=== PATIENT | female | born 1975 | race Caucasian/White ===

== ENCOUNTER 2016-06-28 10:24 | Day surgery (SDC) | payer OTHER ==
[~2016-06-28 10:24] MED LIST: DIPRIVAN 200 MG/20 ML IV ONE; Kenalog-40 IM ONE; Sensorcaine 0.25% 10 ML IJ ONE; Xylocaine 1% Vial 30 ML PF IJ ONE
[2016-06-28] MEDS ORDERED: Lactated Ringers 1,000 ML IV SCH (11:30)
[2016-06-28] MEDS ORDERED: Pepcid 20 MG VIAL IV ONE (12:29)
[2016-06-28 12:59] VITALS: BP 155/75; PULSE 87; O2SAT 95
--- NOTE | 2016-06-28 14:07 | XRAY ---
Indication: Left SI injection. Intraoperative fluoroscopy was provided for 15 seconds. 3 digital spot images submitted for interpretation demonstrates a posterior spinal needle with the tip projecting over the left SI joint. Small amount of contrast injected for needle tip placement. Correlate with intraoperative findings/report.
--- NOTE | 2016-06-28 16:52 | XRAY ---
15 seconds fluoroscopy time in surgery for left SI injection.
== END 2016-06-28 13:00 | disposition home or self-care (01) ==
LOC: SDC-PAIN 10:24
PROVIDERS: ATTEND Pain Medicine Interventional Pain Medicine
DX: M46.1 Sacroiliitis, not elsewhere classified (principal); M54.5 Low back pain; M70.62 Trochanteric bursitis, left hip
CPT/HCPCS: 27096; 72020; 77003; J2001; J2704; J3301; Q9967

== ENCOUNTER 2016-08-07 10:12 | Emergency (ER) | payer OTHER ==
--- NOTE | 2016-08-07 10:36 | ERPHSYRPT ---
- History of Present Illness Time Seen by Provider: 08/07/16 10:18 Source: patient Exam Limitations: no limitations Patient Subjective Stated Complaint: pt arrived ambulatory to er with co numnbess to face off and on for 4 days,numbness to right side, nauea, no headache, pt states that she had court date this am. Triage Nursing Assessment: pt alert and oriented, resp easy,skin w/d. no edema noted, moves all ext well, Physician History: patient developed numbness of right face; and inability to speak 4 days ago; didn't see anyone; lasted 4-6 hours and resolved; hx of stroke affecting right side 6 months ago; on plavix; she has been taking it; no recent travel or exposure or trauma; ; slight visual disturbance right eye and numbness nose on right and trouble swallowing Timing/Duration: today, hour(s) (1/2 ago today; similar episode 4 days ago lasted 4- 6 hours), gradual onset Severity: moderate Character of Deficits: altered sensation (right face), impaired swallowing, Right Facial Deficits: no difficulties Baseline/Normal Cognition: alert oriented x 3 Current Cognition: alert oriented x 3 Baseline Gait: walks w/o assistance Associated Symptoms: nausea, vision changes Allergies/Adverse Reactions: aspirin Allergy (Mild, Verified 08/07/16 10:20) codeine [Codeine] Allergy (Mild, Verified 08/07/16 10:20) fluoxetine HCl [From Prozac] Allergy (Mild, Verified 08/07/16 10:20) Penicillins Allergy (Mild, Verified 08/07/16 10:20) promethazine HCl [From Phenergan] Allergy (Mild, Verified 08/07/16 10:20) prednisone Adverse Reaction (Mild, Verified 08/07/16 10:20) mouth sores, rash chest and neck doxycycline hyclate [From Vibra-Tabs] Adverse Reaction (Verified 08/07/16 10:20) steroid from breathing treatment Allergy (Uncoded 08/07/16 10:20) Home Medications: Gabapentin [Neurontin] 1,600 mg PO QID 07/10/13 [History] Diltiazem HCl [Cartia Xt] 180 mg PO QPM 09/27/14 [History] Levothyroxine Sodium 100 Mcg [Synthroid 100 Mcg] 100 mcg PO QAM 09/27/14 [ History] Simvastatin [Zocor] 20 mg PO HS 09/27/14 [History] Clopidogrel Bisulfate 75 mg [PLAVIX 75 MG Tablet] 75 mg PO DAILY 04/05/15 [History] Cyclobenzaprine HCl 10 mg [Cyclobenzaprine 10 MG] 10 mg PO BID 07/16/15 [ History] Insulin Detemir [Levemir Flexpen] 7 unit SQ QAM 09/27/15 [History] Lamotrigine 100 mg [lamICTAL 100MG TABLET] 200 mg PO BID 09/27/15 [History ] Tramadol HCl 50 mg [Ultram 50 mg] 50 mg PO Q6HPRN PRN 09/27/15 [History] Diazepam 5 mg [Valium 5 MG] 5 mg PO TID 02/14/16 [History] Estrogens,Esterified [Menest] 1 tab PO UD 04/20/16 [History] Hydrocodone Bit/Acetaminophen [Hydrocodon-Acetaminophn 10-325] 1 tab PO Q4HPRN PRN 04/20/16 [History] Lidocaine HCl 5% Patch [Lidoderm Patch 5%] 1 applic TD DAILY 04/20/16 [ History] Naproxen 500 mg PO BID 04/20/16 [History] Omeprazole 20 MG [Prilosec 20 mg] 20 mg PO DAILY 04/20/16 [History] Trazodone HCl [Oleptro ER] 150 mg PO HS 04/20/16 [History] Triamcinolone Acetonide [Nasacort] 2 sprays IH UD 04/20/16 [History] Hx Tetanus, Diphtheria Vaccination/Date Given: Yes Hx Influenza Vaccination/Date Given: Yes Hx Pneumococcal Vaccination/Date Given: Yes Immunizations Up to Date: Yes - Review of Systems Constitutional: No Symptoms Eyes: Vision Changes, No Eye Pain, No Eye Redness, No Itchy, No Photophobia Ears, Nose, & Throat: Other (trouble swallowing), No Ear Pain, No Hearing Changes, No Tinnitus, No Nose Pain (but numbness on right) Cardiac: No Chest Pain, No Palpitations, No Syncope Abdominal/Gastrointestinal: Nausea, No Abdominal Pain, No Vomiting, No Diarrhea Genitourinary Symptoms: No Symptoms Musculoskeletal: No Symptoms Skin: No Symptoms Neurological: Parasthesia, Sensory Changes, No Dizziness, No Gait Changes, No Headache, No Seizure Psychological: No Symptoms Endocrine: No Symptoms Hematologic/Lymphatic: No Symptoms Immunological/Allergic: No Symptoms - Past Medical History Pertinent Past Medical History: Yes Neurological History: Epilepsy, Migraines, Seizures, Stroke ENT History: No Pertinent History Cardiac History: Angina, Arrhythmia, Deep Vein Thrombosis, High Cholesterol, Hypertension, Myocardial Infarction ([place]), Other Respiratory History: Asthma, Pulmonary Embolism Endocrine Medical History: Diabetes Type II, Hypothyroidism Musculoskeletal History: Fibromyalgia, Osteoporosis GI Medical History: GERD, Hernia History: No Pertinent History Psycho-Social History: Anxiety, Bipolar, Depression, Panic Disorder Female Reproductive Disorders: Endometriosis Other Medical History: MITRAL VALVE PROLAPSE WITH REGURTATION, BIPOLAR DISORDER , IBS, , MULTIPLE SCLEROSIS, FIBROMYALGIA. PE RIGHT LUNG - Past Surgical History Past Surgical History: Yes Neuro Surgical History: No Pertinent History Cardiac: Cardiac Catheterization Respiratory: No Pertinent History Gastrointestinal: Cholecystectomy, Hernia Repair Genitourinary: No Pertinent History Musculoskeletal: Joint Replacement, Orthopedic Surgery Female Surgical History: Hysterectomy Other Surgical History: torn miniscus and implant-RT KNEE" partial scope replacement" - Social History Smoking Status: Current every day smoker How long have you smoked: 25 Exposure to second hand smoke: Yes Alcohol Use: None Drug Use: none Patient Lives Alone: No Significant Family History: no pertinent family hx, heart disease - Female History Hx Now: No - Nursing Vital Signs Nursing Vital Signs: Initial Vital Signs Temperature 98.2 F Temperature Source Oral Pulse Rate 86 Respiratory Rate 18 Blood Pressure [] 129/92 Pain Intensity 9 - Denise Coma Scale Best Eye Response (Denise): (4) open spontaneously Best Verbal Response ([place]): (5) oriented Best Motor Response (Denise): (6) obeys commands Denise Total: 15 - Physical Exam General Appearance: severe distress, alert, anxiety Eye Exam: bilateral eye: normal inspection, PERRL, EOMI, other (fundi benign; no papiledema; vision grossly ok) Ears, Nose, Throat Exam: normal ENT inspection, TMs normal, pharynx normal, moist mucous membranes, other (tongue midline) Neck Exam: normal inspection, non-tender, supple, full range of motion, No meningismus, No carotid bruit, No JVD Respiratory: normal breath sounds, lungs clear, airway intact, No chest tenderness, No respiratory distress, No rhonchi, No wheezing, No stridor Cardiovascular: regular rate/rhythm, normal heart sounds, normal peripheral pulses, capillary refill <2 sec, No murmur Gastrointestinal: soft, normal bowel sounds, No tenderness, No distention, No mass, No guarding, No pulsatile mass, No organomegaly Pelvic Exam: deferred Rectal Exam: deferred Back Exam: normal inspection, normal range of motion, No CVA tenderness, No rash Extremity Exam: normal inspection, normal range of motion, pelvis stable, No adriana's sign, No pedal edema Peripheral Pulses: carotid (R): 4+, carotid (L): 4+, femoral (R): 4+, femoral (L ): 4+, dorsalis-pedis (R): 3+, dorsalis-pedis (L): 3+ Mental Status: alert, oriented x 3, cooperative, 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 Exam: normal hearing, normal speech, PERRL, facial paresthesias (right), tongue midline, No facial weakness Coordination/Gait: normal finger to nose, normal gait, normal cerebellar function, negative Romberg's sign Motor/Sensory: no sensory deficit (slight hypoaesthesia right face all three branches), no pronator drift, negative Babinski's sign, weak motor strength RLE (with respect o left but lieft against gravity and old wihtout change per patient), No no motor deficit (slight weakness right leg compared to left; patient states this is old and unchanged) DTR: knee (R): 4+, knee (L): 4+ Skin Exam: normal color, warm, dry, No rash, No petechiae SpO2 Interpretation: normal SpO2: 97 Oxygen Delivery: Room Air - Course Nursing assessment & vital signs reviewed: Yes EKG Interpreted by Me: RATE (72), Sinus Rhythm, NORMAL AXIS, NORMAL INTERVALS, NORMAL QRS, Non-specific ST Changes (flat T's ? hypokalemia), Other (change from --16) Rhythm Strip: Rate (96), Normal Sinus Rhythm - Radiology Exams Chest X-ray Interpretation: Reviewed by me, Teleradiologist Report, Negative - CT Exams Head CT Interpretation: Negative, Tele-radiologist Report, Other (no change from last year) Ordered Tests: Active Orders 24 hr Category Date Time Status Accucheck STAT Care 08/07/16 10:28 Active Rn Admit STAT Care 08/07/16 10:28 Active EKG-ER Only STAT Care 08/07/16 10:28 Active IV Insertion STAT Care 08/07/16 10:28 Active Pulse Oximetry (ED) STAT Care 08/07/16 10:28 Active Re-Check Vital Signs STAT Care 08/07/16 10:28 Active CHEST 1 VIEW (PORTABLE) Stat Exams 08/07/16 10:29 Completed HEAD WITHOUT CONTRAST [CT] Stat Exams 08/07/16 10:29 Completed CBC W DIFF Stat Lab 08/07/16 10:40 Completed CMP Stat Lab 08/07/16 10:40 Completed PROTIME WITH INR Stat Lab 08/07/16 10:40 Completed PTT Stat Lab 08/07/16 10:40 Completed Lab/Rad Data: Laboratory Result Diagrams 08/07/16 10:40 08/07/16 10:40 Laboratory Results 08/07/16 08/07/16 08/07/16 Range/Units 10:40 10:40 10:40 WBC 6.3 (4.0-10.5) K/mm3 RBC 4.59 (4.1-5.4) M/mm3 Hgb 13.1 (12.0-16.0) gm/dl Hct 40.6 (35-47) % MCV 88.5 (78-100) fl MCH 28.5 (26-32) pg MCHC 32.3 (32-36) g/dl RDW 13.7 (11.5-14.0) % Plt Count 178 (150-450) K/mm3 MPV 11.0 H (6-9.5) fl Gran % 56.3 (36.0-66.0) % Lymphocytes % 31.3 (24.0-44.0) % Monocytes % 8.1 (0.0-12.0) % Eosinophils % 4.0 (0.00-5.0) % Basophils % 0.3 (0.0-0.4) % Basophils # 0.02 (0-0.4) INR 0.94 (0.8-3.0) PTT 35.3 (25.3-37.0) SECONDS Sodium 147 H (136-145) mEq/L Potassium 3.2 L (3.5-5.1) mEq/L Chloride 107 (98-107) mEq/L Carbon Dioxide 29.4 (21-32) mEq/L Anion Gap 13.4 (5-15) MEQ/L BUN 15 (9-20) mg/dL Creatinine 0.87 (0.55-1.30) mg/dl Estimated GFR > 60 ML/MIN Glucose 107 (70-110) MG/DL Calcium 8.9 (8.5-10.1) mg/dL Total Bilirubin 0.1 L (0.2-1.0) mg/dL AST 14 L (15-37) U/L ALT 14 (12-78) U/L Alkaline Phosphatase 109 (46-116) U/L Serum Total Protein 7.2 (6.4-8.2) gm/dL Albumin 3.7 (3.4-5.0) g/dL reviewed - Progress Progress: unchanged (after CT), improved (clinically over time), re-examined Progress Note: 08/07/16 10:[address]; no change in exam; at bedside; CBC ok; monitor and pusle ox ok, BP ok 08/07/16 11:35 results to date shared; no change in exam; patient up to bathroom; will recheck and consult with LMD for disposition 08/07/16 12:[address] Jeter; will give K+ for mild hypokelemia and keep on Plavix and have her follow up with Dr Alfaro in the office; she is to call for an appt. ; patient not a candidate for TPA on multiple levels; she is already on Plavix the appropriate meds; She was given liquid K+ and had no difficulty swallowing so improved. Treatment plan and d/c instructions given Discussed with .: Corona (consulted and reviewed case; will release home ot follow up with Dr Alfaro in the office and continue meds) Will see patient in: office Counseled pt/family regarding: lab results, diagnosis, need for follow-up, rad results - Departure Time of Disposition: 12:09 Departure Disposition: Home Clinical Impression: TIA (transient ischemic attack), Hypokalemia Condition: Stable Critical Care Time: No Referrals: ERICA ALFARO [Primary Care Provider] - Additional Instructions: rest; K+ rich diet continue home meds call Dr Alfaro for recheck 2-5 days Follow-up with family doctor as directed. Call for appointment. Return if any problems. If you smoke please stop. Call or follow up with your family doctor for assistance if you need it to stop. Please wear your seatbelt when driving. Have a nice day. Thank you for allowing us to participate in your care today. :o) Dr Wilfred Newsome
[2016-08-07 10:49] LABS: BASOPHIL % 0.3 % (0.0-0.4); Granulocytes % 56.3 % (36.0-66.0); Lymphocytes % 31.3 % (24.0-44.0); Mean Cell Volume 88.5 fl (78-100); Mean Corpuscular Hemoglobin 28.5 pg (26-32); Monocytes % 8.1 % (0.0-12.0); Platelet Count 178 K/mm3 (150-450); Red Blood Count 4.59 M/mm3 (4.1-5.4); Red Cell Distribution Width 13.7 % (11.5-14.0); White Blood Count 6.3 K/mm3 (4.0-10.5)
--- NOTE | 2016-08-07 10:59 | XRAY ---
Indication: Right facial numbness. Comparison: February 07, 2016. Portable chest again demonstrates normal heart, lungs, and bony thorax.
[2016-08-07 11:00] LABS: INR 0.94 (0.8-3.0); PROTIME 10.5 SECONDS (9.95-12.35)
--- NOTE | 2016-08-07 11:02 | XRAY ---
Indication: Right facial numbness. Multiple contiguous axial images obtained through the head without contrast. Comparison: December 29, 2015. Again normal-appearing brain parenchyma, ventricles, and bony calvarium. Visualized paranasal sinuses and mastoid air cells are pneumatized and clear. Impression: Stable normal CT head without contrast exam. CT DI 69.52
[2016-08-07 11:03] LABS: PTT 35.3 SECONDS (25.3-37.0)
[2016-08-07 11:08] VITALS: PULSE 86
[2016-08-07 11:08] LABS: ALBUMIN 3.7 g/dL (3.4-5.0); ALKALINE PHOSPHATASE 109 U/L (46-116); ANION GAP 13.4 MEQ/L (5-15); BILIRUBIN,TOTAL 0.1 mg/dL (0.2-1.0); BLOOD UREA NITROGEN 15 mg/dL (9-20); CHLORIDE 107 mEq/L (98-107); Carbon Dioxide 29.4 mEq/L (21-32); Glucose 107 MG/DL (70-110); Potassium 3.2 mEq/L (3.5-5.1); SGOT/AST 14 U/L (15-37); SGPT/ALT 14 U/L (12-78); SODIUM 147 mEq/L (136-145); Total Protein 7.2 gm/dL (6.4-8.2)
[2016-08-07] MEDS ORDERED: POTASSIUM CHL 40 MEQ/30 ML ORAL SOLUTION PO STA (12:02)
[2016-08-07] MEDS ORDERED: POTASSIUM CHL 40 MEQ/30 ML ORAL SOLUTION ONE (12:05)
[2016-08-07 12:28] VITALS: BP 132/78; O2SAT 98
== END 2016-08-07 12:29 | disposition home or self-care (01) ==
LOC: ED 10:12
DX: G45.9 Transient cerebral ischemic attack, unspecified (principal); E87.6 Hypokalemia; I25.2 Old myocardial infarction; I10 Essential (primary) hypertension; E78.00 Pure hypercholesterolemia, unspecified; G40.909 Epilepsy, unspecified, not intractable, without status epilepticus; Z79.01 Long term (current) use of anticoagulants; Z79.899 Other long term (current) drug therapy; Z79.4 Long term (current) use of insulin; E11.9 Type 2 diabetes mellitus without complications; E03.9 Hypothyroidism, unspecified
CPT/HCPCS: 36000; 36415; 70450; 71010; 80053; 82962; 85025; 85610; 85730; 93005; 93041; 99284

== ENCOUNTER 2016-08-21 16:13 | Emergency (ER) | payer OTHER ==
[2016-08-21] MEDS ORDERED: Zithromax 250 MG TABLET PO ONE (17:06)
[2016-08-21] MEDS ORDERED: Zithromax 250 MG TABLET ONE (17:12)
--- NOTE | 2016-08-21 17:56 | ERPHSYRPT ---
- History of Present Illness Time Seen by Provider: 08/21/16 16:55 Source: patient Exam Limitations: clinical condition Patient Subjective Stated Complaint: PT REPORTS VOICE BEGAN GOING HOARSE 3 DAYS AGO-STATES SHE DOES NOT HAVE PAIN WITH IT-DENIES SOB Triage Nursing Assessment: PT PALE WARM ET DRY-A & O X 3-RESP EASY ET NONLABORED -NO SWALLOWING DIFFICULTY NOTED AFTER NURSE REQUESTED PT STOP DRINKING HER POP Physician History: PATIENT WITH HISTORY OF HYPERTENSION, DIABETES COMPLAINS OF PRODUCTIVE COUGH, HOARSNESS AND SORETHROAT FOR 3 DAYS. DENIES FEVER, CHILLS, CHEST PAIN, OR DIFFICULTY BREATHING Timing/Duration: gradual onset Severity: moderate ENT Location: throat Prearrival Treatment: no prearrival treatment Modifying Factors: Improves With: coughing Associated Symptoms: sore throat Allergies/Adverse Reactions: aspirin Allergy (Mild, Verified 08/21/16 16:49) codeine [Codeine] Allergy (Mild, Verified 08/21/16 16:49) fluoxetine HCl [From Prozac] Allergy (Mild, Verified 08/21/16 16:49) Penicillins Allergy (Mild, Verified 08/21/16 16:49) promethazine HCl [From Phenergan] Allergy (Mild, Verified 08/21/16 16:49) prednisone Adverse Reaction (Mild, Verified 08/21/16 16:49) mouth sores, rash chest and neck doxycycline hyclate [From Vibra-Tabs] Adverse Reaction (Verified 08/21/16 16:49) steroid from breathing treatment Allergy (Uncoded 08/21/16 16:49) Home Medications: Gabapentin [Neurontin] 1,600 mg PO QID 07/10/13 [History] Diltiazem HCl [Cartia Xt] 180 mg PO QPM 09/27/14 [History] Levothyroxine Sodium 100 Mcg [Synthroid 100 Mcg] 100 mcg PO QAM 09/27/14 [ History] Simvastatin [Zocor] 20 mg PO HS 09/27/14 [History] Clopidogrel Bisulfate 75 mg [PLAVIX 75 MG Tablet] 75 mg PO DAILY 04/05/15 [History] Cyclobenzaprine HCl 10 mg [Cyclobenzaprine 10 MG] 10 mg PO BID 07/16/15 [ History] Insulin Detemir [Levemir Flexpen] 7 unit SQ QAM 09/27/15 [History] Lamotrigine 100 mg [lamICTAL 100MG TABLET] 200 mg PO BID 09/27/15 [History ] Tramadol HCl 50 mg [Ultram 50 mg] 50 mg PO Q6HPRN PRN 09/27/15 [History] Diazepam 5 mg [Valium 5 MG] 5 mg PO TID 02/14/16 [History] Estrogens,Esterified [Menest] 1 tab PO UD 04/20/16 [History] Hydrocodone Bit/Acetaminophen [Hydrocodon-Acetaminophn 10-325] 1 tab PO Q4HPRN PRN 04/20/16 [History] Lidocaine HCl 5% Patch [Lidoderm Patch 5%] 1 applic TD DAILY 04/20/16 [ History] Naproxen 500 mg PO BID 04/20/16 [History] Omeprazole 20 MG [Prilosec 20 mg] 20 mg PO DAILY 04/20/16 [History] Trazodone HCl [Oleptro ER] 150 mg PO HS 04/20/16 [History] Triamcinolone Acetonide [Nasacort] 2 sprays IH UD 04/20/16 [History] Hx Tetanus, Diphtheria Vaccination/Date Given: Yes Hx Influenza Vaccination/Date Given: Yes Hx Pneumococcal Vaccination/Date Given: Yes Immunizations Up to Date: Yes - Review of Systems Constitutional: No Symptoms, No Fever, No Chills Eyes: No Symptoms Ears, Nose, & Throat: No Symptoms, Throat Pain Respiratory: Cough, No Dyspnea Cardiac: No Chest Pain, No Edema, No Syncope Abdominal/Gastrointestinal: No Symptoms, No Abdominal Pain, No Nausea, No Vomiting, No Diarrhea Genitourinary Symptoms: No Symptoms, No Dysuria Musculoskeletal: No Back Pain, No Neck Pain Skin: No Rash Neurological: No Dizziness, No Focal Weakness, No Sensory Changes Psychological: No Symptoms Endocrine: No Symptoms All Other Systems: Reviewed and Negative - Past Medical History Pertinent Past Medical History: Yes Neurological History: Epilepsy, Peripheral Neuropathy ENT History: No Pertinent History Cardiac History: Hypertension, Other Respiratory History: Asthma Endocrine Medical History: Diabetes Type I, Hypothyroidism Musculoskeletal History: Other GI Medical History: GERD, Hernia History: No Pertinent History Psycho-Social History: Anxiety, Bipolar, Depression, Panic Disorder Female Reproductive Disorders: Endometriosis Other Medical History: A FIB, MVP W/ REGURGITATION, HTN; HX R KNEE PN - Past Surgical History Past Surgical History: Yes Neuro Surgical History: No Pertinent History Cardiac: Cardiac Catheterization Respiratory: No Pertinent History Gastrointestinal: Cholecystectomy, Hernia Repair Genitourinary: No Pertinent History Musculoskeletal: Joint Replacement, Orthopedic Surgery Female Surgical History: Hysterectomy Other Surgical History: torn miniscus and implant-RT KNEE" partial scope replacement" - Social History Smoking Status: Current every day smoker How long have you smoked: 25 Exposure to second hand smoke: Yes Alcohol Use: None Drug Use: none Patient Lives Alone: No Significant Family History: no pertinent family hx, heart disease - Female History Hx Now: No - Nursing Vital Signs Nursing Vital Signs: Initial Vital Signs Pulse Rate 88 Respiratory Rate 22 Blood Pressure [Right Arm] 147/90 Pain Intensity 0 - Physical Exam General Appearance: no apparent distress, alert Eye Exam: bilateral eye: normal inspection, PERRL, EOMI Ear Exam: bilateral ear: auricle normal, canal normal, TM normal Nasal Exam: normal inspection Throat Exam: moist mucus membranes, pharynx tenderness, No tonsillar exudate Neck Exam: normal inspection, supple, lymphadenopathy (L) Cardiovascular/Respiratory Exam: normal breath sounds, regular rate/rhythm Abdominal Exam: non-tender, soft Neurologic Exam: alert, oriented x 3, sensation nml, No motor deficits Skin Exam: normal color, warm, dry SpO2 Interpretation: normal SpO2: 97 Oxygen Delivery: Room Air Ordered Tests: Active Orders 24 hr Category Date Time Status CULTURE, THROAT Stat Lab 08/21/16 17:20 Received STREP SCREEN-BETA A Stat Lab 08/21/16 17:20 Completed Medication Summary Discontinued Medications Generic Name Dose Route Start Last Admin Trade Name Parker PRN Reason Stop Dose Admin Azithromycin 500 mg 08/21/16 17:06 08/21/16 17:13 Zithromax 250 Mg Tablet PO 08/21/16 17:07 500 mg STAT ONE Administration Azithromycin Confirm 08/21/16 17:12 Zithromax 250 Mg Tablet Administered 08/21/16 17:13 Dose 500 mg .ROUTE .STK-MED ONE Lab/Rad Data: Laboratory Results 08/21/16 Range/Units 17:20 Streptococcus Screen NEGATIVE (Negative) - Progress Progress Note: 08/21/16 17:55 PATIENT GIVEN ZITHROMAX 500MG ORALLY Counseled pt/family regarding: lab results, diagnosis, need for follow-up - Departure Time of Disposition: 18:00 Departure Disposition: Home Clinical Impression: ACUTE PHARYNGITIS/LARYNGITIS, ACUTE BRONCHITIS Condition: Stable Critical Care Time: No Additional Instructions: ANTIBIOTIC ZITHROMAX 250MG, 2 TABLETS DAY 1 THEN 1 TABLET DAILY FOR 4 DAYS. TAKE OVER THE COUNTER TYLENOL FOR PAIN OR FEVER, OVER THE COUNTER COUGH SYRUP FOR COUGHING. FOLLOWUP WITH YOUR FAMILY PHYSICIAN FOR EVALUATION. Prescriptions: Azithromycin 250 mg [Zithromax 250 MG TABLET] 250 mg PO ZPACK #6 tablet
[2016-08-21 18:05] VITALS: BP 138/77; PULSE 70; O2SAT 96
== END 2016-08-21 18:05 | disposition home or self-care (01) ==
LOC: ED 16:13
DX: J02.9 Acute pharyngitis, unspecified (principal); J04.0 Acute laryngitis; J20.9 Acute bronchitis, unspecified
CPT/HCPCS: 87070; 87430; 99284; A9270-GY

== ENCOUNTER 2016-08-23 15:27 | Inpatient (IN) | payer OTHER ==
[2016-08-23] MEDS ORDERED: Sodium Chloride 0.9% 1000 ML 1,000 ML IV STA (16:01)
--- NOTE | 2016-08-23 16:09 | ERPHSYRPT ---
- History of Present Illness Time Seen by Provider: 08/23/16 15:56 Source: patient Exam Limitations: no limitations Patient Subjective Stated Complaint: PT BROUGHT TO ED PER EMS FROM PCP STATES PT HAD SEIZURE IN THE OFFICE-UPON EMS ARRIVAL PT WAS ALERT-ANXIOUS BEING CLAMED BY Triage Nursing Assessment: PT ARRIVED TO ED FLUSHED-NO INCONTENT EPISODE-ALERT ET ANSWERING QUESTIONS-HOARSE VOICE NOTED-PT WAS BEING TX FOR THAT-ABLE TO MOVE ALL EXTREMITIES Physician History: 40-year-old white female with history of multiple medical complaints Is brought by medics she apparently had a seizure at her physician's office. She now states that her head hurts, her chest hurts and she has a sore throat. Patient is alert oriented. Patient is with her but he cannot describe her seizure. Past medical history includes epilepsy, migraines, stroke, angina, DVT, hypercholesterolemia , high blood pressure, myocardial infarction, asthma, pulmonary embolism, diabetes, hypothyroidism, fibromyalgia, osteoporosis, GERD, anxiety disorder, bipolar disorder, panic attack, peripheral valve prolapse, irritable bowel, multiple sclerosis, fibroids, lupus past surgical history includes cardiac catheterization, cholecystectomy, hernia repair, joint repair, orthopedic surgery, hysterectomy, implant in the patient's right knee Social history patient denies tobacco alcohol or illicit drug use Timing/Duration: today (just prior to arrival) Severity: mild Modifying Factors: Improves With: nothing Associated Symptoms: chest pain, headaches, seizure, No nausea, No vomiting, No abdominal pain, No shortness of breath, No heartburn, No diaphoresis, No cough, No chills, No fever, No loss of appetite, No malaise, No rash, No syncope, No weakness Allergies/Adverse Reactions: aspirin Allergy (Mild, Verified 08/23/16 15:38) codeine [Codeine] Allergy (Mild, Verified 08/23/16 15:38) fluoxetine HCl [From Prozac] Allergy (Mild, Verified 08/23/16 15:38) Penicillins Allergy (Mild, Verified 08/23/16 15:38) promethazine HCl [From Phenergan] Allergy (Mild, Verified 08/23/16 15:38) prednisone Adverse Reaction (Mild, Verified 08/23/16 15:38) mouth sores, rash chest and neck doxycycline hyclate [From Vibra-Tabs] Adverse Reaction (Verified 08/23/16 15:38) steroid from breathing treatment Allergy (Uncoded 08/23/16 15:38) Home Medications: Gabapentin [Neurontin] 1,600 mg PO QID 07/10/13 [History] Diltiazem HCl [Cartia Xt] 180 mg PO QPM 09/27/14 [History] Levothyroxine Sodium 100 Mcg [Synthroid 100 Mcg] 100 mcg PO QAM 09/27/14 [ History] Simvastatin [Zocor] 20 mg PO HS 09/27/14 [History] Clopidogrel Bisulfate 75 mg [PLAVIX 75 MG Tablet] 75 mg PO DAILY 04/05/15 [History] Cyclobenzaprine HCl 10 mg [Cyclobenzaprine 10 MG] 10 mg PO BID 07/16/15 [ History] Insulin Detemir [Levemir Flexpen] 7 unit SQ QAM 09/27/15 [History] Lamotrigine 100 mg [lamICTAL 100MG TABLET] 200 mg PO BID 09/27/15 [History ] Tramadol HCl 50 mg [Ultram 50 mg] 50 mg PO Q6HPRN PRN 09/27/15 [History] Diazepam 5 mg [Valium 5 MG] 5 mg PO TID 02/14/16 [History] Estrogens,Esterified [Menest] 1 tab PO UD 04/20/16 [History] Hydrocodone Bit/Acetaminophen [Hydrocodon-Acetaminophn 10-325] 1 tab PO Q4HPRN PRN 04/20/16 [History] Lidocaine HCl 5% Patch [Lidoderm Patch 5%] 1 applic TD DAILY 04/20/16 [ History] Naproxen 500 mg PO BID 04/20/16 [History] Omeprazole 20 MG [Prilosec 20 mg] 20 mg PO DAILY 04/20/16 [History] Trazodone HCl [Oleptro ER] 150 mg PO HS 04/20/16 [History] Triamcinolone Acetonide [Nasacort] 2 sprays IH UD 04/20/16 [History] Hx Tetanus, Diphtheria Vaccination/Date Given: Yes Hx Influenza Vaccination/Date Given: Yes Hx Pneumococcal Vaccination/Date Given: Yes Immunizations Up to Date: Yes - Review of Systems Constitutional: No Fever, No Chills Eyes: No Symptoms, No Discharge, No Eye Pain, No Eye Redness, No Itchy, No Photophobia, No Tearing, No Vision Changes, No Double Vision, No Foreign Body Sensation Ears, Nose, & Throat: Throat Pain, No Ear Pain, No Ear Discharge, No Hearing Changes, No Nose Pain, No Nose Congestion, No Nose Discharge, No Sinus Drainage , No Epistaxis, No Mouth Pain, No Mouth Swelling, No Loose Teeth, No Throat Swelling, No Hoarse, No Painful Swallowing, No Snoring, No Stridor Respiratory: No Cough, No Dyspnea Cardiac: Chest Pain (pain in the anterior chest with breathing), No Edema, No Syncope Abdominal/Gastrointestinal: No Abdominal Pain, No Nausea, No Vomiting, No Diarrhea Genitourinary Symptoms: No Dysuria Musculoskeletal: No Back Pain, No Neck Pain Skin: No Rash Neurological: No Dizziness, No Focal Weakness, No Sensory Changes Psychological: No Symptoms Endocrine: No Symptoms All Other Systems: Reviewed and Negative - Past Medical History Pertinent Past Medical History: Yes Neurological History: Epilepsy, Peripheral Neuropathy ENT History: No Pertinent History Cardiac History: Hypertension, Other Respiratory History: Asthma Endocrine Medical History: Diabetes Type I, Hypothyroidism Musculoskeletal History: Other GI Medical History: GERD, Hernia History: No Pertinent History Psycho-Social History: Anxiety, Bipolar, Depression, Panic Disorder Female Reproductive Disorders: Endometriosis Other Medical History: A FIB, MVP W/ REGURGITATION, HTN; HX R KNEE PN - Past Surgical History Past Surgical History: Yes Neuro Surgical History: No Pertinent History Cardiac: Cardiac Catheterization Respiratory: No Pertinent History Gastrointestinal: Cholecystectomy, Hernia Repair Genitourinary: No Pertinent History Musculoskeletal: Joint Replacement, Orthopedic Surgery Female Surgical History: Hysterectomy Other Surgical History: torn miniscus and implant-RT KNEE" partial scope replacement" - Social History Smoking Status: Current every day smoker How long have you smoked: 25 Exposure to second hand smoke: Yes Alcohol Use: None Drug Use: none Patient Lives Alone: No Significant Family History: no pertinent family hx, heart disease - Female History Hx Now: No - Nursing Vital Signs Nursing Vital Signs: Initial Vital Signs Temperature 98.0 F Temperature Source Oral Pulse Rate 72 Respiratory Rate 20 Blood Pressure [] 108/60 Pain Intensity 9 - Physical Exam General Appearance: mild distress Eye Exam: PERRL/EOMI, eyes nml inspection Ears, Nose, Throat Exam: TMs normal, pharyngeal erythema Neck Exam: normal inspection, non-tender, supple, full range of motion Respiratory Exam: normal breath sounds, lungs clear, No respiratory distress Cardiovascular Exam: regular rate/rhythm, normal heart sounds, normal peripheral pulses Gastrointestinal/Abdomen Exam: soft, normal bowel sounds, No tenderness, No mass Back Exam: normal inspection, normal range of motion, No CVA tenderness, No vertebral tenderness Extremity Exam: normal inspection, normal range of motion, pelvis stable Neurologic Exam: alert, oriented x 3, cooperative, normal mood/affect, nml cerebellar function, nml station & gait, sensation nml, No motor deficits SpO2 Interpretation: normal (99%) SpO2: 99 Oxygen Delivery: Room Air - Course Nursing assessment & vital signs reviewed: Yes EKG Interpreted by Me: RATE (56 bpm), Sinus Rhythm, NORMAL AXIS, Other (EKG, sinus bradycardia, 56 bpm, normal axis, no acute ST or T wave changes noted, essentially normal EKG) - Radiology Exams Chest X-ray Interpretation: Discussed w/ radiologist (chest x-ray new minimal basilar infiltrates versus atelectasis right greater than left. Remaining heart, lungs , bony thorax within normal limits) Ordered Tests: Active Orders 24 hr Category Date Time Status Accucheck STAT Care 08/23/16 16:01 Active EKG-ER Only STAT Care 08/23/16 16:04 Active IV Insertion STAT Care 08/23/16 16:01 Active CHEST 1 VIEW (PORTABLE) Stat Exams 08/23/16 16:02 Completed CBC W DIFF Stat Lab 08/23/16 16:30 Completed CMP Stat Lab 08/23/16 16:30 Completed CULTURE, THROAT Stat Lab 08/23/16 16:30 Received STREP SCREEN-BETA A Stat Lab 08/23/16 16:30 Completed TROPONIN Stat Lab 08/23/16 16:30 Completed UA Stat Lab 08/23/16 17:30 Completed Urine Triage Profile Stat Lab 08/23/16 17:30 Completed Transfer Order Routine Transfer 08/23/16 17:59 Ordered Medication Summary Discontinued Medications Generic Name Dose Route Start Last Admin Trade Name Freq PRN Reason Stop Dose Admin Sodium Chloride 1,000 mls @ 999 mls/hr 08/23/16 16:01 08/23/16 16:30 Sodium Chloride 0.9% 1000 Ml IV 08/23/16 17:01 999 mls/hr .Q1H1M STA Administration Sodium Chloride Confirm 08/23/16 16:23 Sodium Chloride 0.9% 1000 Ml Administered 08/23/16 16:24 Dose 1,000 mls @ ud .ROUTE .STK-MED ONE Lab/Rad Data: Laboratory Result Diagrams 08/23/16 16:30 08/23/16 16:30 Laboratory Results 08/23/16 08/23/16 08/23/16 Range/Units 17:30 17:30 16:30 WBC (4.0-10.5) K/mm3 RBC (4.1-5.4) M/mm3 Hgb (12.0-16.0) gm/dl Hct (35-47) % MCV (78-100) fl MCH (26-32) pg MCHC (32-36) g/dl RDW (11.5-14.0) % Plt Count (150-450) K/mm3 MPV (6-9.5) fl Gran % (36.0-66.0) % Lymphocytes % (24.0-44.0) % Monocytes % (0.0-12.0) % Eosinophils % (0.00-5.0) % Basophils % (0.0-0.4) % Basophils # (0-0.4) Sodium (136-145) mEq/L Potassium (3.5-5.1) mEq/L Chloride (98-107) mEq/L Carbon Dioxide (21-32) mEq/L Anion Gap (5-15) MEQ/L BUN (9-20) mg/dL Creatinine (0.55-1.30) mg/dl Estimated GFR ML/MIN Glucose (70-110) MG/DL Calcium (8.5-10.1) mg/dL Total Bilirubin (0.2-1.0) mg/dL AST (15-37) U/L ALT (12-78) U/L Alkaline Phosphatase (46-116) U/L Troponin I < 0.017 (0.000-0.056) ng/ml Serum Total Protein (6.4-8.2) gm/dL Albumin (3.4-5.0) g/dL Ur Collection Type CLEAN CATCH Urine Color YELLOW (YELLOW) Urine Appearance CLEAR (CLEAR) Urine pH 7.0 (5-6) Ur Specific [place] 1.010 (1.005-1.025) Urine Protein NEGATIVE (Negative) Urine Glucose (UA) NEGATIVE (NEGATIVE) mg/dL Urine Ketones NEGATIVE (NEGATIVE) Urine Nitrite NEGATIVE (NEGATIVE) Urine Bilirubin NEGATIVE (NEGATIVE) Urine Urobilinogen 0.2 (0-1) mg/dL Urine WBC (Auto) NEGATIVE (NEGATIVE) Urine RBC (Auto) NEGATIVE (0-5) Laurent/ul Urine Opiates Level NEG. (NEGATIVE) Ur Methadone NEG. (NEGATIVE) Urine Barbiturates NEG. (NEGATIVE) Ur Phencyclidine (PCP) NEG. (NEGATIVE) Urine Amphetamine NEG. (NEGATIVE) U Benzodiazepine Level POS. (NEGATIVE) Urine Cocaine NEG. (NEGATIVE) Urine Marijuana (THC) NEG. (NEGATIVE) Streptococcus Screen (Negative) Specimen Received 08/23/16:1730 08/23/16 08/23/16 08/23/16 Range/Units 16:30 16:30 16:30 WBC 6.4 (4.0-10.5) K/mm3 RBC 4.63 (4.1-5.4) M/mm3 Hgb 13.1 (12.0-16.0) gm/dl Hct 40.5 (35-47) % MCV 87.5 (78-100) fl MCH 28.3 (26-32) pg MCHC 32.3 (32-36) g/dl RDW 13.5 (11.5-14.0) % Plt Count 200 (150-450) K/mm3 MPV 10.7 H (6-9.5) fl Gran % 54.9 (36.0-66.0) % Lymphocytes % 33.3 (24.0-44.0) % Monocytes % 6.8 (0.0-12.0) % Eosinophils % 4.8 (0.00-5.0) % Basophils % 0.2 (0.0-0.4) % Basophils # 0.01 (0-0.4) Sodium 151 H* (136-145) mEq/L Potassium 4.0 (3.5-5.1) mEq/L Chloride 109 H (98-107) mEq/L Carbon Dioxide 30.6 (21-32) mEq/L Anion Gap 15.1 H (5-15) MEQ/L BUN 6 L (9-20) mg/dL Creatinine 0.88 (0.55-1.30) mg/dl Estimated GFR > 60 ML/MIN Glucose 102 (70-110) MG/DL Calcium 8.8 (8.5-10.1) mg/dL Total Bilirubin 0.2 (0.2-1.0) mg/dL AST 25 (15-37) U/L ALT 27 (12-78) U/L Alkaline Phosphatase 125 H (46-116) U/L Troponin I (0.000-0.056) ng/ml Serum Total Protein 7.6 (6.4-8.2) gm/dL Albumin 4.1 (3.4-5.0) g/dL Ur Collection Type Urine Color (YELLOW) Urine Appearance (CLEAR) Urine pH (5-6) Ur Specific [place] (1.005-1.025) Urine Protein (Negative) Urine Glucose (UA) (NEGATIVE) mg/dL Urine Ketones (NEGATIVE) Urine Nitrite (NEGATIVE) Urine Bilirubin (NEGATIVE) Urine Urobilinogen (0-1) mg/dL Urine WBC (Auto) (NEGATIVE) Urine RBC (Auto) (0-5) Laurent/ul Urine Opiates Level (NEGATIVE) Ur Methadone (NEGATIVE) Urine Barbiturates (NEGATIVE) Ur Phencyclidine (PCP) (NEGATIVE) Urine Amphetamine (NEGATIVE) U Benzodiazepine Level (NEGATIVE) Urine Cocaine (NEGATIVE) Urine Marijuana (THC) (NEGATIVE) Streptococcus Screen NEGATIVE (Negative) Specimen Received - Progress Progress: improved Progress Note: 08/23/16 17:07 Patient with new minimal basilar infiltrates versus atelectasis right greater than left on chest x-ray today. Patient was started on Zithromax 2 days ago. Patient's white count within normal limits 08/23/16 17:57 Patient with elevated sodium of 151, patient with a seizure at her physician's office. I have discussed the case with Dr. Gerardo Singh who is remediation project engineer for Dr. Alfaro will place patient on observation seizure precautions. Will provide IV half normal saline at 100 mL per hour. - Departure Time of Disposition: 17:59 Departure Disposition: Observation Clinical Impression: Seizure, Hypernatremia Condition: Fair Critical Care Time: No Referrals: ERICA ALFARO [Primary Care Provider] -
[2016-08-23] MEDS ORDERED: Sodium Chloride 0.9% 1000 ML 1,000 ML ONE (16:23)
--- NOTE | 2016-08-23 16:42 | XRAY ---
Indication: Chest pain. Seizure. Comparison: August 07, 2016. Portable chest less inflated today with new minimal bibasilar infiltrates versus atelectasis, right greater than left. Remaining heart, lungs, bony thorax normal.
[2016-08-23 16:45] LABS: BASOPHIL % 0.2 % (0.0-0.4); Eosinophil % 4.8 % (0.00-5.0); Granulocytes % 54.9 % (36.0-66.0); Lymphocytes % 33.3 % (24.0-44.0); Mean Cell Volume 87.5 fl (78-100); Mean Corpuscular Hemoglobin 28.3 pg (26-32); Mean Platelet Volume 10.7 fl (6-9.5); Monocytes % 6.8 % (0.0-12.0); Platelet Count 200 K/mm3 (150-450); Red Blood Count 4.63 M/mm3 (4.1-5.4); Red Cell Distribution Width 13.5 % (11.5-14.0); White Blood Count 6.4 K/mm3 (4.0-10.5)
[2016-08-23 17:31] LABS: ALBUMIN 4.1 g/dL (3.4-5.0); ALKALINE PHOSPHATASE 125 U/L (46-116); ANION GAP 15.1 MEQ/L (5-15); BILIRUBIN,TOTAL 0.2 mg/dL (0.2-1.0); BLOOD UREA NITROGEN 6 mg/dL (9-20); Carbon Dioxide 30.6 mEq/L (21-32); Glucose 102 MG/DL (70-110); SGOT/AST 25 U/L (15-37); SGPT/ALT 27 U/L (12-78); Total Protein 7.6 gm/dL (6.4-8.2)
[2016-08-23 17:42] LABS: Collection Type CLEAN CATCH
[2016-08-23 17:42] LABS: CHLORIDE 109 mEq/L (98-107)
[2016-08-23 17:43] LABS: COMPLETE URINE MICROSCOPIC? NO
[2016-08-23 17:44] LABS: SODIUM 151 mEq/L (136-145)
[2016-08-23] MEDS: Norco 10/325 MG Tablet PO PRN (21:18)
[2016-08-23] MEDS: PROVENTIL COMMON CANISTER IH SCH (21:55)
[2016-08-23] MEDS: Neurontin 400 MG PO SCH (22:59)
[2016-08-23] MEDS: lamICTAL 100MG TABLET PO SCH (22:59)
[2016-08-23] MEDS: Valium 5 MG PO SCH (23:00)
[2016-08-23] MEDS: ZOCOR 20MG PO SCH (23:00)
[2016-08-23] MEDS: Desyrel 150 MG PO SCH (23:00)
[2016-08-23] MEDS: Carafate 1 GM PO SCH (23:00)
[2016-08-23] MEDS: Naprosyn 500 MG PO SCH (23:00)
[2016-08-23] MEDS: Cyclobenzaprine 10 MG PO SCH (23:00)
[2016-08-24] MEDS ORDERED: Sodium Chloride 0.9% 1000 ML 0 ML ONE (00:31)
[2016-08-24] MEDS: PROVENTIL COMMON CANISTER IH PRN ×2 (01:25→22:10)
[2016-08-24] MEDS ORDERED: Norco 10/325 MG Tablet ONE (05:19)
[2016-08-24] MEDS: Norco 10/325 MG Tablet PO PRN ×4 (05:39→21:50)
[2016-08-24 05:43] LABS: BASOPHIL % 0.1 % (0.0-0.4); Eosinophil % 5.4 % (0.00-5.0); Granulocytes % 44.5 % (36.0-66.0); Lymphocytes % 42.4 % (24.0-44.0); Mean Cell Volume 88.9 fl (78-100); Mean Corpuscular Hemoglobin 28.2 pg (26-32); Mean Platelet Volume 10.8 fl (6-9.5); Monocytes % 7.6 % (0.0-12.0); Platelet Count 180 K/mm3 (150-450); Red Blood Count 3.97 M/mm3 (4.1-5.4); Red Cell Distribution Width 13.5 % (11.5-14.0); White Blood Count 6.7 K/mm3 (4.0-10.5)
[2016-08-24 06:29] LABS: ALBUMIN 3.3 g/dL (3.4-5.0); ALKALINE PHOSPHATASE 98 U/L (46-116); ANION GAP 10.2 MEQ/L (5-15); BILIRUBIN,TOTAL 0.1 mg/dL (0.2-1.0); BLOOD UREA NITROGEN 6 mg/dL (9-20); CHLORIDE 111 mEq/L (98-107); Carbon Dioxide 30.1 mEq/L (21-32); Glucose 146 MG/DL (70-110); Potassium 3.5 mEq/L (3.5-5.1); SGOT/AST 16 U/L (15-37); SGPT/ALT 19 U/L (12-78); SODIUM 148 mEq/L (136-145); Total Protein 6.1 gm/dL (6.4-8.2)
[2016-08-24] MEDS: PROVENTIL COMMON CANISTER IH SCH ×4 (06:43→17:21)
--- NOTE | 2016-08-24 08:47 | PCM.HP ---
History of Present Illness - Chief Complaint Chief Complaint: seizures, hyponatremia History of Present Illness: is a 40 year old female pt of mine from [facility] who saw Isai Palma yesterday and was observed having seizure activity. She has been having chest heaviness (up to 10/10) with a sharp component, constant, and SOB since 5d ago. No real cough. Some feeling of palpitations. Some feeling of pain in the R jaw and neck. Hoarse voice since 5d ago. Some trouble swallowing but is thanh po well (approx 80% of breakfast eaten this morning). Yesterday she was in the exam room and started having vertigo. She was helped up onto the exam table but doesn't remember anything after that until she woke up in the ambulance. There is no one else with her this morning. - Review of Systems Ears, Nose, & Throat: Throat Pain, Hoarse Respiratory: Short Of Breath Cardiac: Chest Pain, Edema (hands and feet) Abdominal/Gastrointestinal: Abdominal Pain, No Nausea, No Vomiting, No Diarrhea Musculoskeletal: Back Pain, Neck Pain (chronic pain) Neurological: Dizziness, Seizure, Vertigo Psychological: Anxiety, Depression All Other Systems: Reviewed and Negative Medications & Allergies Home Medications: Home Medication List Gabapentin [Neurontin] 1,600 mg PO QID 07/10/13 [History Confirmed 08/23/16] Diltiazem HCl [Cartia Xt] 180 mg PO QPM 09/27/14 [History Confirmed 08/23/16] Levothyroxine Sodium 100 Mcg [Synthroid 100 Mcg] 100 mcg PO QAM 09/27/14 [ History Confirmed 08/23/16] Simvastatin [Zocor] 20 mg PO HS 09/27/14 [History Confirmed 08/23/16] Clopidogrel Bisulfate 75 mg [PLAVIX 75 MG Tablet] 75 mg PO DAILY 04/05/15 [History Confirmed 08/23/16] Cyclobenzaprine HCl 10 mg [Cyclobenzaprine 10 MG] 10 mg PO BID 07/16/15 [ History Confirmed 08/23/16] Insulin Detemir [Levemir Flexpen] 7 unit SQ QAM 09/27/15 [History Confirmed ] Lamotrigine 100 mg [lamICTAL 100MG TABLET] 200 mg PO BID 09/27/15 [ History Confirmed 08/23/16] Tramadol HCl 50 mg [Ultram 50 mg] 50 mg PO Q6HPRN PRN 09/27/15 [History Confirmed 08/23/16] Bumetanide 1 mg [Bumex 1 mg] 1 mg PO DAILY #30 tablet 10/02/15 [Rx Confirmed 08/23/16] Diazepam 5 mg [Valium 5 MG] 5 mg PO TID 02/14/16 [History Confirmed ] Sucralfate 1 gm [Carafate 1 GM] 1 g PO ACHS #56 tablet 02/19/16 [Rx Confirmed 08/23/16] Estrogens,Esterified [Menest] 1 tab PO UD 04/20/16 [History Confirmed 08/23/16] Hydrocodone Bit/Acetaminophen [Hydrocodon-Acetaminophn 10-325] 1 tab PO Q4HPRN PRN 04/20/16 [History Confirmed 08/23/16] Lidocaine HCl 5% Patch [Lidoderm Patch 5%] 1 applic TD DAILY 04/20/16 [ History Confirmed 08/23/16] Naproxen 500 mg PO BID 04/20/16 [History Confirmed 08/23/16] Omeprazole 20 MG [Prilosec 20 mg] 20 mg PO DAILY 04/20/16 [History Confirmed ] Trazodone HCl [Oleptro ER] 150 mg PO HS 04/20/16 [History Confirmed 08/23/16] Triamcinolone Acetonide [Nasacort] 2 sprays IH DAILY 04/20/16 [History Confirmed 08/23/16] Azithromycin 250 mg [Zithromax 250 MG TABLET] 250 mg PO ZPACK #6 tablet [Rx Confirmed 08/23/16] Allergies/Adverse Reactions: Allergies Allergy/AdvReac Type Severity Reaction Status Date / Time aspirin Allergy Mild Verified 08/23/16 15:38 codeine [Codeine] Allergy Mild Verified 08/23/16 15:38 fluoxetine HCl [From Prozac] Allergy Mild Verified 08/23/16 15:38 Penicillins Allergy Mild Verified 08/23/16 15:38 promethazine HCl Allergy Mild Verified 08/23/16 15:38 [From Phenergan] prednisone AdvReac Mild mouth Verified 08/23/16 15:38 sores, rash chest and neck doxycycline hyclate AdvReac Verified 08/23/16 15:38 [From Vibra-Tabs] steroid from breathing Allergy Uncoded 08/23/16 15:38 treatment - Past Medical History Past Medical History: Yes Neurological History: Epilepsy, Peripheral Neuropathy ENT History: No Pertinent History Cardiac History: Hypertension, Other Respiratory History: Asthma Endocrine Medical History: Diabetes Type I, Hypothyroidism Musculoskelatal History: Other GI Medical History: GERD, Hernia History: No Pertinent History Pyscho-Social History: Anxiety, Bipolar, Depression, Panic Disorder Reproductive Disorders: Endometriosis Comment: A FIB, MVP W/ REGURGITATION, HTN; HX R KNEE PN - Female History Are you now?: No - Past Surgical History Past Surgical History: Yes Neuro Surgical History: No Pertinent History Cardiac History: Cardiac Catheterization Respiratory Surgery: No Pertinent History GI Surgical History: Cholecystectomy, Hernia Repair Genitourinary Surgical Hx: No Pertinent History Musculskeletal Surgical Hx: Joint Replacement, Orthopedic Surgery Female Surgical History: Hysterectomy Other Surgical History: torn miniscus and implant-RT KNEE" partial scope replacement" - Social History Smoking Status: Former smoker How long have you smoked: 25 Exposure to second hand smoke: Yes Alcohol: None Drug Use: none Significant Family History: no pertinent family hx, heart disease - Physical Exam Vital Signs: Vital Signs - 24 hr Temp Pulse Resp BP BP Pulse Ox 08/24/16 07:34 74 20 105/55 94 L 08/24/16 06:45 75 16 94 L 08/24/16 05:56 17 08/24/16 04:00 98.0 F 76 17 105/58 95 08/24/16 01:56 19 08/24/16 01:25 74 19 94 L 08/24/16 00:00 97.9 F 76 18 112/56 95 08/23/16 21:55 70 18 95 08/23/16 20:34 98.6 F 78 16 110/64 08/23/16 18:03 99 08/23/16 16:21 72 20 108/60 96 08/23/16 15:30 98.0 F 68 22 125/82 99 General Appearance: no apparent distress Neurologic Exam: alert, oriented x 3, cooperative Eye Exam: eyes nml inspection Neck Exam: normal inspection, non-tender, No lymphadenopathy Respiratory Exam: normal breath sounds, lungs clear, No crackles/rales, No rhonchi, No wheezing Cardiovascular Exam: regular rate/rhythm, normal heart sounds, No murmur Gastrointestinal/Abdomen Exam: soft, tenderness (generalized; worse in RLQ), No distention, No mass, No guarding, No rebound Back Exam: normal inspection, CVA tenderness (vs back pain; bilat) Extremity Exam: swelling (trace pitting edema pretibial bilat) Skin Exam: normal color, warm, dry, No rash Results - Labs Lab/Micro Results: Accuchecks Date 08/23/16 Time 22:00 Accucheck Value: 155 Lab Results-Last 24 Hours 08/24/16 08/24/16 Range/Units 05:02 05:02 WBC 6.7 (4.0-10.5) K/mm3 RBC 3.97 L (4.1-5.4) M/mm3 Hgb 11.2 L (12.0-16.0) gm/dl Hct 35.3 (35-47) % MCV 88.9 (78-100) fl MCH 28.2 (26-32) pg MCHC 31.7 L (32-36) g/dl RDW 13.5 (11.5-14.0) % Plt Count 180 (150-450) K/mm3 MPV 10.8 H (6-9.5) fl Gran % 44.5 (36.0-66.0) % Lymphocytes % 42.4 (24.0-44.0) % Monocytes % 7.6 (0.0-12.0) % Eosinophils % 5.4 H (0.00-5.0) % Basophils % 0.1 (0.0-0.4) % Basophils # 0.01 (0-0.4) Sodium 148 H (136-145) mEq/L Potassium 3.5 (3.5-5.1) mEq/L Chloride 111 H (98-107) mEq/L Carbon Dioxide 30.1 (21-32) mEq/L Anion Gap 10.2 (5-15) MEQ/L BUN 6 L (9-20) mg/dL Creatinine 0.87 (0.55-1.30) mg/dl Estimated GFR > 60 ML/MIN Glucose 146 H (70-110) MG/DL Calcium 8.0 L (8.5-10.1) mg/dL Total Bilirubin 0.1 L (0.2-1.0) mg/dL AST 16 (15-37) U/L ALT 19 (12-78) U/L Alkaline Phosphatase 98 (46-116) U/L Serum Total Protein 6.1 L (6.4-8.2) gm/dL Albumin 3.3 L (3.4-5.0) g/dL Accuchecks Date 08/23/16 Time 22:00 Accucheck Value: 155 - Radiology Impressions Radiology Exams & Impressions: Radiology Procedures Category Date Time Status ECHO W/2D AND DOPPLER [US] Routine Exams 08/24/16 08:36 Ordered - Other Procedures and Tests Respiratory Therapy 08/23/16 19:00 Respiratory MDI QID 08/23/16 22:29 Respiratory MDI PRN 08/24/16 08:41 EEG 41-60 Minutes (Normal) ONCE Assessment/Plan (1) Seizure Current Visit: Yes Status: Acute Assessment & Plan: check EEG. some hx seizure d/o but unable to find previous EEG. Code(s): R56.9 - UNSPECIFIED CONVULSIONS (2) Chest pain Current Visit: Yes Status: Acute Qualifiers: Chest pain type: chest pain on breathing Qualified Code(s): R07.1 - Chest pain on breathing Assessment & Plan: troponin neg. check d-dimer. Code(s): R07.9 - CHEST PAIN, UNSPECIFIED (3) Hypernatremia Current Visit: Yes Status: Acute Assessment & Plan: improved this morning. recheck in a.m. Code(s): E87.0 - HYPEROSMOLALITY AND HYPERNATREMIA (4) Edema Current Visit: Yes Status: Acute Qualifiers: Edema type: generalized Qualified Code(s): R60.1 - Generalized edema Assessment & Plan: in LE; will check BNP and echocardiogram. Code(s): R60.9 - EDEMA, UNSPECIFIED (5) Pneumonia Current Visit: Yes Status: Acute Qualifiers: Pneumonia type: due to unspecified organism Laterality: bilateral Lung location: lower lobe of lung Qualified Code(s): J18.9 - Pneumonia, unspecified organism Assessment & Plan: infiltrates vs atelectasis. Nl wbc count but she has been on zithromax. No real cough to speak of. Go ahead and add IV rocephin no (on po zithromax). Code(s): J18.9 - PNEUMONIA, UNSPECIFIED ORGANISM (6) Hoarse Current Visit: Yes Status: Acute Assessment & Plan: If persistent would sent to ENT
[2016-08-24] MEDS ORDERED: INSULIN DETEMIR 7 UNIT SQ SCH (10:00)
[2016-08-24] MEDS: Ativan 2 MG/1 ML VIAL IV PRN (10:35)
[2016-08-24] MEDS: Carafate 1 GM PO SCH ×4 (10:45→21:26)
[2016-08-24] MEDS: ROCEPHIN 1 Gm-D5w 50 ml Bag** 50 ML IV SCH (11:04)
[2016-08-24] MEDS: SYNTHROID 100 MCG PO SCH (11:05)
[2016-08-24] MEDS: Neurontin 400 MG PO SCH ×4 (11:05→21:26)
[2016-08-24] MEDS: lamICTAL 100MG TABLET PO SCH ×2 (11:05→21:26)
[2016-08-24] MEDS: Lidoderm Patch 5% TP SCH (11:05)
[2016-08-24] MEDS: Naprosyn 500 MG PO SCH ×2 (11:06→21:25)
[2016-08-24] MEDS: PLAVIX 75 MG Tablet PO SCH (11:06)
[2016-08-24] MEDS: Zithromax 250 MG TABLET PO SCH (11:06)
[2016-08-24] MEDS: Protonix 40MG Tablet PO SCH (11:06)
[2016-08-24] MEDS: Lantus Insulin SQ SCH (11:06)
[2016-08-24] MEDS: Cyclobenzaprine 10 MG PO SCH ×2 (11:06→21:26)
[2016-08-24] MEDS: Valium 5 MG PO SCH ×3 (11:06→21:25)
[2016-08-24] MEDS: ENOXAPARIN SODIUM SQ SCH (11:18)
[2016-08-24] MEDS: Desyrel 150 MG PO SCH (21:26)
[2016-08-24] MEDS: Cardizem CD 180 MG PO SCH (21:26)
[2016-08-24] MEDS: ZOCOR 20MG PO SCH (21:26)
[2016-08-25] MEDS: Norco 10/325 MG Tablet PO PRN ×3 (03:45→16:33)
[2016-08-25 05:31] LABS: BASOPHIL % 0.2 % (0.0-0.4); Eosinophil % 6.2 % (0.00-5.0); Mean Cell Volume 89.2 fl (78-100); Mean Corpuscular Hemoglobin 28.2 pg (26-32); Mean Platelet Volume 10.6 fl (6-9.5); Monocytes % 8.6 % (0.0-12.0); Platelet Count 164 K/mm3 (150-450); Red Blood Count 3.79 M/mm3 (4.1-5.4); Red Cell Distribution Width 13.5 % (11.5-14.0); White Blood Count 5.7 K/mm3 (4.0-10.5)
[2016-08-25 06:01] LABS: ANION GAP 11.2 MEQ/L (5-15); BLOOD UREA NITROGEN 9 mg/dL (9-20); CHLORIDE 110 mEq/L (98-107); Carbon Dioxide 28.8 mEq/L (21-32); Glucose 105 MG/DL (70-110); SODIUM 146 mEq/L (136-145)
[2016-08-25] MEDS: PROVENTIL COMMON CANISTER IH SCH ×4 (06:44→19:36)
[2016-08-25] MEDS: Carafate 1 GM PO SCH ×4 (07:46→22:00)
[2016-08-25] MEDS: Lantus Insulin SQ SCH (07:53)
[2016-08-25] MEDS ORDERED: PROVENTIL 2.5 MG/3 ML NEB IH PRN (08:36)
--- NOTE | 2016-08-25 08:43 | PCM.NOTE ---
Date and Time: 08/25/16 08 Subjective Assessment: Pt still c/o chest heaviness. Her BNP and troponins were neg. D-dimer negative. Still c/o cough. Fell yesterday and hit her head; c/o PORTER. 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 C/o CN V abn on L "feels different") Skin Exam: warm, dry Respiratory Exam: crackles/rales (faint bibasilar), other (good air exchange), No wheezing Cardiovascular Exam: regular rate/rhythm, normal heart sounds, No murmur Gastrointestinal/Abdomen Exam: soft, tenderness (mild RLQ), No guarding, No rebound Extremity Exam: No pedal edema, No swelling Back Exam: normal inspection OBJECTIVE DATA Vital Signs: Vital Signs - 24 hr Temp Pulse Resp BP BP Pulse Ox 08/25/16 08:10 122/86 08/25/16 07:42 97.6 F 58 L 20 88/53 96 08/25/16 06:45 71 16 94 L 08/25/16 05:00 17 08/25/16 04:00 98.0 F 76 20 95/60 91 L 08/25/16 01:00 20 08/24/16 23:59 98.2 F 84 20 116/63 95 08/24/16 22:11 80 16 98 08/24/16 21:00 19 08/24/16 20:00 98.8 F 75 17 122/57 96 08/24/16 17:22 72 16 97 08/24/16 16:00 98.0 F 71 17 99/63 93 L 08/24/16 14:40 72 16 96 08/24/16 11:52 97.8 F 75 18 103/57 96 08/24/16 10:58 73 18 94 L Pain Assessment - Last Documented Pain Intensity 10 Pain Scale Used 0-10 Pain Scale Intake and Output: Intake & Output 08/22/16 08/23/16 08/24/16 08/25/16 11:59 11:59 11:59 11:59 Intake Total 3952 7241 Balance 2432 4478 Weight 96.343 kg Lab Results: Accuchecks Date 08/25/16 Date 08/24/16 Time 07:30 Time 22:00 Accucheck Value: 105 Accucheck Value: 128 Accucheck Value: 111 Accucheck Value: 102 Lab Results-Last 24 Hours 08/24/16 08/24/16 08/25/16 Range/Units 09:15 09:15 05:15 WBC 5.7 (4.0-10.5) K/mm3 RBC 3.79 L (4.1-5.4) M/mm3 Hgb 10.7 L (12.0-16.0) gm/dl Hct 33.8 L (35-47) % MCV 89.2 (78-100) fl MCH 28.2 (26-32) pg MCHC 31.7 L (32-36) g/dl RDW 13.5 (11.5-14.0) % Plt Count 164 (150-450) K/mm3 MPV 10.6 H (6-9.5) fl Gran % 45.0 (36.0-66.0) % Lymphocytes % 40.0 (24.0-44.0) % Monocytes % 8.6 (0.0-12.0) % Eosinophils % 6.2 H (0.00-5.0) % Basophils % 0.2 (0.0-0.4) % Basophils # 0.01 (0-0.4) D-Dimer < 0.200 (0.00-0.49) mg/L Sodium (136-145) mEq/L Potassium (3.5-5.1) mEq/L Chloride (98-107) mEq/L Carbon Dioxide (21-32) mEq/L Anion Gap (5-15) MEQ/L BUN (9-20) mg/dL Creatinine (0.55-1.30) mg/dl Estimated GFR ML/MIN Glucose (70-110) MG/DL Calcium (8.5-10.1) mg/dL NT-Pro-B Natriuret Pep 82 (0-125) pg/ml 08/25/16 Range/Units 05:15 WBC (4.0-10.5) K/mm3 RBC (4.1-5.4) M/mm3 Hgb (12.0-16.0) gm/dl Hct (35-47) % MCV (78-100) fl MCH (26-32) pg MCHC (32-36) g/dl RDW (11.5-14.0) % Plt Count (150-450) K/mm3 MPV (6-9.5) fl Gran % (36.0-66.0) % Lymphocytes % (24.0-44.0) % Monocytes % (0.0-12.0) % Eosinophils % (0.00-5.0) % Basophils % (0.0-0.4) % Basophils # (0-0.4) D-Dimer (0.00-0.49) mg/L Sodium 146 H (136-145) mEq/L Potassium 4.0 (3.5-5.1) mEq/L Chloride 110 H (98-107) mEq/L Carbon Dioxide 28.8 (21-32) mEq/L Anion Gap 11.2 (5-15) MEQ/L BUN 9 (9-20) mg/dL Creatinine 0.81 (0.55-1.30) mg/dl Estimated GFR > 60 ML/MIN Glucose 105 (70-110) MG/DL Calcium 8.4 L (8.5-10.1) mg/dL NT-Pro-B Natriuret Pep (0-125) pg/ml Radiology Exams: Radiology Procedures Category Date Time Status ECHO W/2D AND DOPPLER [US] Routine Exams 08/24/16 08:36 Taken Assessment/Plan (1) Seizure Current Visit: Yes Status: Acute Assessment & Plan: Pt has been on lamictal for some time. There was some shaking activity while having her EEG but there is a question of whether that was consistent with seizure activity. Will repeat EEG today. Add [place], and have her f/u outpatient with Dr. Araujo. Code(s): R56.9 - UNSPECIFIED CONVULSIONS (2) Pneumonia Current Visit: Yes Status: Acute Qualifiers: Pneumonia type: due to unspecified organism Laterality: bilateral Lung location: lower lobe of lung Qualified Code(s): J18.9 - Pneumonia, unspecified organism Assessment & Plan: CXR wtih infiltrates v atelectasis. She does have a cough. On rocephin and zithromax IV. Code(s): J18.9 - PNEUMONIA, UNSPECIFIED ORGANISM (3) Chest pain Current Visit: Yes Status: Acute Qualifiers: Chest pain type: chest pain on breathing Qualified Code(s): R07.1 - Chest pain on breathing Assessment & Plan: continues to have chest pressure. D-dimer neg, bnp neg, echo pending. will try albuterol nebs and see if that helps the pain. Code(s): R07.9 - CHEST PAIN, UNSPECIFIED (4) Hypernatremia Current Visit: Yes Status: Resolved Code(s): E87.0 - HYPEROSMOLALITY AND HYPERNATREMIA (5) Edema Current Visit: Yes Status: Acute Qualifiers: Edema type: generalized Qualified Code(s): R60.1 - Generalized edema Assessment & Plan: seems improved this a.m. Code(s): R60.9 - EDEMA, UNSPECIFIED (6) Hoarse Current Visit: Yes Status: Acute Assessment & Plan: f/u on this outpatient.
[2016-08-25] MEDS: Cyclobenzaprine 10 MG PO SCH ×2 (08:51→22:01)
[2016-08-25] MEDS: Protonix 40MG Tablet PO SCH (08:51)
[2016-08-25] MEDS: Neurontin 400 MG PO SCH ×4 (08:51→22:01)
[2016-08-25] MEDS: lamICTAL 100MG TABLET PO SCH ×2 (08:51→22:00)
[2016-08-25] MEDS: Naprosyn 500 MG PO SCH ×2 (08:52→22:01)
[2016-08-25] MEDS: PLAVIX 75 MG Tablet PO SCH (08:52)
[2016-08-25] MEDS: SYNTHROID 100 MCG PO SCH (08:52)
[2016-08-25] MEDS: Zithromax 250 MG TABLET PO SCH (08:53)
[2016-08-25] MEDS: ENOXAPARIN SODIUM SQ SCH (08:53)
[2016-08-25] MEDS: Valium 5 MG PO SCH ×3 (08:53→22:01)
[2016-08-25] MEDS: Lidoderm Patch 5% TP SCH (08:54)
[2016-08-25] MEDS: ROCEPHIN 1 Gm-D5w 50 ml Bag** 50 ML IV SCH (08:54)
[2016-08-25] MEDS: KEPPRA 500 MG PO SCH ×2 (09:03→22:01)
--- NOTE | 2016-08-25 09:11 | ECHO ---
DATE: 08/24/16 A transthoracic echocardiograph examination with color Doppler study was done. INDICATION: Hypertension, diabetes, hyperlipidemia, and transient ischemic attack. IMPRESSION: 1. NO REGIONAL WALL MOTION ABNORMALITY WITH ESTIMATED GLOBAL LEFT VENTRICULAR EJECTION FRACTION OF 60%. 2. TRACE MITRAL REGURGITATION. 3. TRACE AORTIC REGURGITATION. 4. MODERATE TRICUSPID REGURGITATION WITH RIGHT VENTRICULAR SYSTOLIC PRESSURE OF 31 MM OF MERCURY. 5. LEFT VENTRICULAR HYPERTROPHY. 6. LEFT VENTRICULAR DIASTOLIC DYSFUNCTION. The left ventricle was visualized and demonstrated adequate motion of all the segments with estimated global left ventricular ejection fraction of 60%. There is mild left ventricular hypertrophy. The mitral valve was seen and this opens adequately. There is trace mitral regurgitation. Tissue Doppler study of the lateral mitral annulus is suggestive of left ventricular diastolic dysfunction. The left atrium is normal. The aortic valve opens adequately. There is no significant gradient across the left ventricular outflow tract. Right-sided chambers are normal. There is trace tricuspid regurgitation with right ventricular systolic pressure of 31 mm Hg.
[2016-08-25] MEDS: Ativan 2 MG/1 ML VIAL IV PRN ×2 (12:35→12:42)
[2016-08-25] MEDS ORDERED: Keppra 500 MG/5 ML*** 500 MG in D5w 100ML Mini Bag 100 ML 100 ML IV ONE (12:48)
[2016-08-25] MEDS ORDERED: Lasix 20 MG/2 ML IV ONE (14:26)
[2016-08-25] MEDS: ZOCOR 20MG PO SCH (22:00)
[2016-08-25] MEDS: Cardizem CD 180 MG PO SCH (22:01)
[2016-08-25] MEDS: Desyrel 150 MG PO SCH (22:01)
[2016-08-26 05:51] LABS: Mean Cell Volume 89.7 fl (78-100); Mean Corpuscular Hemoglobin 28.2 pg (26-32); Mean Platelet Volume 10.6 fl (6-9.5); Platelet Count 170 K/mm3 (150-450); Red Cell Distribution Width 13.3 % (11.5-14.0); White Blood Count 4.9 K/mm3 (4.0-10.5)
[2016-08-26 05:59] LABS: ANION GAP 12.8 MEQ/L (5-15); BLOOD UREA NITROGEN 12 mg/dL (9-20); CHLORIDE 107 mEq/L (98-107); Carbon Dioxide 31.9 mEq/L (21-32); Glucose 119 MG/DL (70-110); Potassium 3.8 mEq/L (3.5-5.1); SODIUM 148 mEq/L (136-145)
[2016-08-26] MEDS: PROVENTIL COMMON CANISTER IH SCH ×4 (07:05→18:08)
[2016-08-26] MEDS: lamICTAL 100MG TABLET PO SCH ×2 (07:55→21:47)
[2016-08-26] MEDS: Neurontin 400 MG PO SCH ×4 (07:55→21:47)
[2016-08-26] MEDS: KEPPRA 500 MG PO SCH ×2 (07:55→21:47)
[2016-08-26] MEDS: PLAVIX 75 MG Tablet PO SCH (07:56)
[2016-08-26] MEDS: Carafate 1 GM PO SCH ×4 (07:56→21:47)
[2016-08-26] MEDS: Naprosyn 500 MG PO SCH ×2 (07:56→21:47)
[2016-08-26] MEDS: Cyclobenzaprine 10 MG PO SCH ×2 (07:56→21:47)
[2016-08-26] MEDS: Valium 5 MG PO SCH ×3 (07:56→21:47)
[2016-08-26] MEDS: SYNTHROID 100 MCG PO SCH (07:56)
[2016-08-26] MEDS: Protonix 40MG Tablet PO SCH (07:56)
[2016-08-26] MEDS: ENOXAPARIN SODIUM SQ SCH (07:57)
[2016-08-26] MEDS: Lantus Insulin SQ SCH (07:57)
[2016-08-26] MEDS: Lidoderm Patch 5% TP SCH (07:57)
[2016-08-26] MEDS: NovoLOG Insulin SQ PRN ×2 (07:58→17:01)
[2016-08-26] MEDS: ROCEPHIN 1 Gm-D5w 50 ml Bag** 50 ML IV SCH (10:13)
[2016-08-26] MEDS: Cardizem CD 180 MG PO SCH (21:47)
[2016-08-26] MEDS: ZOCOR 20MG PO SCH (21:47)
[2016-08-26] MEDS: Desyrel 150 MG PO SCH (21:47)
[2016-08-27] MEDS: PROVENTIL COMMON CANISTER IH SCH ×4 (07:00→19:36)
[2016-08-27] MEDS: Carafate 1 GM PO SCH ×4 (08:10→22:21)
[2016-08-27] MEDS: Lidoderm Patch 5% TP SCH (08:10)
[2016-08-27] MEDS: Valium 5 MG PO SCH ×3 (08:11→22:22)
[2016-08-27] MEDS: lamICTAL 100MG TABLET PO SCH ×2 (08:11→22:22)
[2016-08-27] MEDS: SYNTHROID 100 MCG PO SCH (08:11)
[2016-08-27] MEDS: PLAVIX 75 MG Tablet PO SCH (08:12)
[2016-08-27] MEDS: KEPPRA 500 MG PO SCH ×2 (08:12→22:22)
[2016-08-27] MEDS: Neurontin 400 MG PO SCH ×4 (08:12→22:22)
[2016-08-27] MEDS: Protonix 40MG Tablet PO SCH (08:12)
[2016-08-27] MEDS: Cyclobenzaprine 10 MG PO SCH ×2 (08:12→22:21)
[2016-08-27] MEDS: ENOXAPARIN SODIUM SQ SCH (08:12)
[2016-08-27] MEDS: Lantus Insulin SQ SCH (08:12)
[2016-08-27] MEDS: ROCEPHIN 1 Gm-D5w 50 ml Bag** 50 ML IV SCH (08:13)
[2016-08-27] MEDS: Naprosyn 500 MG PO SCH ×2 (08:13→22:22)
[2016-08-27] MEDS: Cardizem CD 180 MG PO SCH (22:21)
[2016-08-27] MEDS: Desyrel 150 MG PO SCH (22:21)
[2016-08-27] MEDS: ZOCOR 20MG PO SCH (22:22)
[2016-08-28] MEDS: PROVENTIL COMMON CANISTER IH SCH ×3 (07:38→14:48)
--- NOTE | 2016-08-28 07:57 | PCM.NOTE ---
Date and Time: 08/28/16 0752 Subjective Assessment: She has had no episodes yesterday regarding seizure/pseudoseizure. States she has a hard time sitting up because of generalized weakness, states her legs are shaky. States when she feels like it's hard to breathe she uses oxygen, here, prn. - Review of Systems Constitutional: No Fever Ears, Nose, & Throat: Hoarse Respiratory: Cough Objective Exam General Appearance: no apparent distress, other (hoarseness is improved) Neurologic Exam: alert, oriented x 3, cooperative Skin Exam: normal color, warm, dry Respiratory Exam: normal breath sounds, lungs clear, No crackles/rales, No rhonchi, No wheezing Cardiovascular Exam: regular rate/rhythm, normal heart sounds, No murmur Extremity Exam: No pedal edema, No swelling Back Exam: normal inspection OBJECTIVE DATA Vital Signs: Vital Signs - 24 hr Temp Pulse Resp BP Pulse Ox 08/28/16 07:39 75 16 93 L 08/28/16 07:15 98.3 F 80 16 104/58 91 L 08/28/16 05:00 15 08/28/16 04:00 97.9 F 76 15 103/58 95 08/28/16 01:00 15 08/28/16 00:00 97.8 F 70 15 106/64 97 08/27/16 21:00 18 08/27/16 20:00 98.1 F 79 18 102/58 95 08/27/16 19:40 83 12 94 L 08/27/16 17:00 18 08/27/16 15:51 97.4 F 94 H 20 121/63 97 08/27/16 15:06 82 18 97 08/27/16 13:00 20 08/27/16 11:33 97.8 F 81 19 137/82 92 L 08/27/16 11:18 68 18 97 08/27/16 09:00 18 Oxygen-Last 24 hours O2 Percentage 2 Liters = 28% O2 Percentage 2 Liters = 28% O2 Percentage 2 Liters = 28% O2 Percentage 2 Liters = 28% Pain Assessment - Last Documented Pain Intensity 4 Pain Scale Used 0-10 Pain Scale Intake and Output: Intake & Output 08/25/16 08/26/16 08/27/16 08/28/16 11:59 11:59 11:59 11:59 Intake Total 694 038 3526 Output Total 7704 3600 1000 Balance -720 -2900 690 Lab Results: Accuchecks Date 08/28/16 Date 08/27/16 Date 08/27/16 Time 07:30 Time 16:30 Time 11:30 Accucheck Value: 89 Accucheck Value: 136 Accucheck Value: 129 Accucheck Value: 120 Radiology Exams: Radiology Procedures Category Date Time Status MRI BRAIN W & W/O CONTRAST [MRI] Routine Exams 08/28/16 08:00 Ordered Assessment/Plan (1) Pseudoseizure Current Visit: Yes Status: Acute Assessment & Plan: Likely, with normal EEG. However MRI pending this morning. Code(s): F44.5 - CONVERSION DISORDER WITH SEIZURES OR CONVULSIONS (2) Psychomotor retardation Current Visit: Yes Status: Acute Assessment & Plan: I suspect she is depressed. She is not on an antidepressant, she is allergic to an SSRI and I think has reacted poorly to other antidepressants in the past. [facility] consult. Code(s): F45.9 - SOMATOFORM DISORDER, UNSPECIFIED (3) Pneumonia Current Visit: Yes Status: Acute Qualifiers: Pneumonia type: due to unspecified organism Laterality: bilateral Lung location: lower lobe of lung Qualified Code(s): J18.9 - Pneumonia, unspecified organism Assessment & Plan: Treating for with IV antibiotics. Would like her to have overnight pulse ox study without the O2. Code(s): J18.9 - PNEUMONIA, UNSPECIFIED ORGANISM (4) Chest pain Current Visit: Yes Status: Acute Qualifiers: Chest pain type: chest pain on breathing Qualified Code(s): R07.1 - Chest pain on breathing Assessment & Plan: not complaining of that this morning. Code(s): R07.9 - CHEST PAIN, UNSPECIFIED (5) Hypernatremia Current Visit: Yes Status: Resolved Code(s): E87.0 - HYPEROSMOLALITY AND HYPERNATREMIA (6) Edema Current Visit: Yes Status: Acute Qualifiers: Edema type: generalized Qualified Code(s): R60.1 - Generalized edema Code(s): R60.9 - EDEMA, UNSPECIFIED (7) Hoarse Current Visit: Yes Status: Acute Assessment & Plan: this has improved.
[2016-08-28] MEDS: Carafate 1 GM PO SCH ×3 (08:01→17:44)
[2016-08-28] MEDS: Lantus Insulin SQ SCH (08:19)
--- NOTE | 2016-08-28 09:42 | XRAY ---
Indication: Pseudoseizures. Sagittal, coronal, and axial MRI brain was performed using pre-and post T1, T2, FLAIR, diffusion, and ADC sequences. 15 cc Magnevist contrast used. Comparison: September 28, 2014. Again symmetry of the ventriculosulcal pattern. Stable tiny focus of degenerative micro-ischemia in the left periventricular white matter. No acute intracranial hemorrhage, abnormal extra-axial fluid collection, or mass effect. Diffusion images are negative for restricted signal. Following gadolinium there is no abnormal enhancing intra-or extra-axial mass. Fourth ventricle is midline without hydrocephalus. 7/8 cranial nerve complex bilaterally symmetric. Normal flow void signal within the major intracerebral circulation. Normal-appearing craniocervical junction and sella turcica. Paranasal sinuses are clear. Impression: Stable negative MRI brain with and without contrast exam.
[2016-08-28] MEDS: Protonix 40MG Tablet PO SCH (10:08)
[2016-08-28] MEDS: Cyclobenzaprine 10 MG PO SCH (10:08)
[2016-08-28] MEDS: KEPPRA 500 MG PO SCH (10:08)
[2016-08-28] MEDS: PLAVIX 75 MG Tablet PO SCH (10:09)
[2016-08-28] MEDS: ENOXAPARIN SODIUM SQ SCH (10:09)
[2016-08-28] MEDS: Lidoderm Patch 5% TP SCH (10:09)
[2016-08-28] MEDS: lamICTAL 100MG TABLET PO SCH (10:09)
[2016-08-28] MEDS: ROCEPHIN 1 Gm-D5w 50 ml Bag** 50 ML IV SCH (10:09)
[2016-08-28] MEDS: Valium 5 MG PO SCH ×2 (10:09→17:44)
[2016-08-28] MEDS: Neurontin 400 MG PO SCH ×3 (10:09→17:44)
[2016-08-28] MEDS: Naprosyn 500 MG PO SCH (10:09)
[2016-08-28] MEDS: SYNTHROID 100 MCG PO SCH (10:09)
[2016-08-28 16:37] VITALS: BP 108/64; PULSE 73; O2SAT 94
--- NOTE | 2016-08-28 17:52 | PCM.DS ---
Discharge Summary Date of Admission: 08/25/16 12:30 Admitting Physician: ERICA BROCK Consults: Consults on Case 08/25/16 14:26 Consult Tele-Health [Tele-Health Consult] ROUTINE 08/28/16 07:50 Tele-Health Consult ROUTINE Primary Care Provider: ERICA BROCK Allergies Allergies aspirin Allergy (Mild, Verified 08/23/16 15:38) codeine [Codeine] Allergy (Mild, Verified 08/23/16 15:38) fluoxetine HCl [From Prozac] Allergy (Mild, Verified 08/23/16 15:38) Penicillins Allergy (Mild, Verified 08/23/16 15:38) promethazine HCl [From Phenergan] Allergy (Mild, Verified 08/23/16 15:38) prednisone Adverse Reaction (Mild, Verified 08/23/16 15:38) mouth sores, rash chest and neck doxycycline hyclate [From Vibra-Tabs] Adverse Reaction (Verified 08/23/16 15:38) steroid from breathing treatment Allergy (Uncoded 08/23/16 15:38) Hospital Summary - Hospital Course Hospital Course: Pt came to ER c/o chest pain, cough, hoarseness. Troponin neg. Was found to have question of bibasliar infiltrates so has been treated for pneumonia. She had some seizure vs pseudoseizure activity - EEG normal. Teleneurology advised several tests including MRI brain which were normal. She had a [facility] consult and PT consult for psychomotor retardation - she was found to have anxiety and depression, will f/u with [facility] and her regular counselor. PT advised continue outpatient PT program as Rx'd by pain managment. Pt to be discharged home on po antibiotics and keppra pending neurology consult. - Vitals & Intake/Output Vital Signs: Vital Signs Temperature 97.9 F 08/28/16 16:00 Pulse Rate 73 08/28/16 16:00 Respiratory Rate 16 08/28/16 17:00 Blood Pressure 108/64 08/28/16 16:00 O2 Sat by Pulse Oximetry 94 L 08/28/16 16:00 Oxygen-Last Documented O2 Percentage 2 Liters = 28% Intake & Output: Intake & Output 08/26/16 08/27/16 08/28/16 08/29/16 11:59 11:59 11:59 11:59 Intake Total 650 840 7196 900 Output Total 1600 3600 1000 2300 Balance -720 -2900 1290 -1400 Weight 96.343 kg - Lab Result Diagrams: 08/26/16 05:12 08/26/16 05:12 Lab Results-Last 24 Hrs: Accuchecks Date 08/28/16 Date 08/28/16 Time 11:30 Time 07:30 Accucheck Value: 109 Accucheck Value: 89 Accucheck Value: 136 Micro Results-Entire Visit: Accuchecks Date 08/28/16 Date 08/28/16 Time 11:30 Time 07:30 Accucheck Value: 109 Accucheck Value: 89 Accucheck Value: 136 - Radiology Exams Ordered Rad Exams-Entire Visit: Radiology Procedures Category Date Time Status MRI BRAIN W & W/O CONTRAST [MRI] Routine Exams 08/28/16 08:00 Completed Discharge Exam General Appearance: no apparent distress, other (exam done this morning) Neurologic Exam: alert, oriented x 3, cooperative, other (flat affect) Skin Exam: normal color, warm, dry Respiratory Exam: normal breath sounds, crackles/rales (bibasilar crackles), No rhonchi, No wheezing Cardiovascular Exam: regular rate/rhythm, normal heart sounds Gastrointestinal/Abdomen Exam: normal bowel sounds, No distention Extremity Exam: No pedal edema, No swelling Back Exam: normal inspection Final Diagnosis/Problem List - Final Discharge Diagnosis/Problem (1) Pneumonia Current Visit: Yes Status: Acute Assessment & Plan: home on BID cefdinir (2) Pseudoseizure Current Visit: Yes Status: Acute Assessment & Plan: vs seizure, but EEG was wnl. F/u outpatient with neurology. Keep pt on keppra and lamictal. (3) Psychomotor retardation Current Visit: Yes Status: Acute Assessment & Plan: [facility] thinks from depression and I think this is reasonable. Pt was asking about a wheelchair but I think it's important for her to keep moving as much as possible - ok to use walker as needed for balance. F/u with [facility] as scheudled and PT. (4) Chest pain Current Visit: Yes Status: Acute Assessment & Plan: troponin was neg after several days of chest pain. Likely due to possible pneumonia. (5) Hypernatremia Current Visit: Yes Status: Resolved (6) Edema Current Visit: Yes Status: Resolved (7) Hoarse Current Visit: Yes Status: Acute Assessment & Plan: improved; f/u outpatient. refer to ENT if needed. - Discharge Disposition: Home, Self-Care Condition: Stable Prescriptions: New Cefdinir 300 mg PO BID #18 capsule Levetiracetam [Keppra 500 mg ] 500 mg PO BID #60 tablet Continue Gabapentin [Neurontin] 1,600 mg PO QID Simvastatin [Zocor] 20 mg PO HS Levothyroxine Sodium 100 Mcg [Synthroid 100 Mcg] 100 mcg PO QAM Diltiazem HCl [Cartia Xt] 180 mg PO QPM Clopidogrel Bisulfate 75 mg [PLAVIX 75 MG Tablet] 75 mg PO DAILY Cyclobenzaprine HCl 10 mg [Cyclobenzaprine 10 MG] 10 mg PO BID Insulin Detemir [Levemir Flexpen] 7 unit SQ QAM Lamotrigine 100 mg [lamICTAL 100MG TABLET] 200 mg PO BID Tramadol HCl 50 mg [Ultram 50 mg] 50 mg PO Q6HPRN PRN PRN Reason: Pain Bumetanide 1 mg [Bumex 1 mg] 1 mg PO DAILY #30 tablet Diazepam 5 mg [Valium 5 MG] 5 mg PO TID Sucralfate 1 gm [Carafate 1 GM] 1 g PO ACHS #56 tablet Hydrocodone Bit/Acetaminophen [Hydrocodon-Acetaminophn 10-325] 1 tab PO Q4HPRN PRN PRN Reason: Pain Trazodone HCl [Oleptro ER] 150 mg PO HS Omeprazole 20 MG [Prilosec 20 mg] 20 mg PO DAILY Triamcinolone Acetonide [Nasacort] 2 sprays IH DAILY Naproxen 500 mg PO BID Lidocaine HCl 5% Patch [Lidoderm Patch 5%] 1 applic TD DAILY Estrogens,Esterified [Menest] 1 tab PO UD Discontinued Azithromycin 250 mg [Zithromax 250 MG TABLET] 250 mg PO ZPACK #6 tablet Instructions: Hyponatremia, Pseudoseizure, Seizure (Not Epilepsy/Seizure Disorder) Additional Instructions: Come to the physical therapy department for your first appointment on September 04, 2016 per pain management referral. Follow up with therapist on 09/04/16 at 8:45. Follow up with Dr. Laura Machado at [facility] office on 09/27/16 at 11:00. Follow up with: ERICA BROCK [Primary Care Provider] - 09/04/16 3:45 pm AKBAR OSHEA [NON-STAFF PHY W/O PRIVILEGES] - 09/18/16 9:00 am ([facility], 2nd floor, [address]) Forms: Discharge Instructions
== END 2016-08-28 18:30 | disposition home or self-care (01) | DRG 194 ==
LOC: ED 15:27 → MED SURG 18:22 → OBSVTOIN 08-25 12:30 → MED SURG 08-25 12:57 → ED 08-25 15:27 → MED SURG 08-25 18:22
PROVIDERS: ADMIT Family Medicine; ATTEND Family Medicine
DX: J18.9 Pneumonia, unspecified organism (principal); E87.0 Hyperosmolality and hypernatremia; G40.909 Epilepsy, unspecified, not intractable, without status epilepticus; F82 Specific developmental disorder of motor function; R07.1 Chest pain on breathing; R60.9 Edema, unspecified; R49.0 Dysphonia; G62.9 Polyneuropathy, unspecified; E03.9 Hypothyroidism, unspecified; F44.5 Conversion disorder with seizures or convulsions; I10 Essential (primary) hypertension; I48.91 Unspecified atrial fibrillation; J45.909 Unspecified asthma, uncomplicated; E10.8 Type 1 diabetes mellitus with unspecified complications; Z79.4 Long term (current) use of insulin; K21.9 Gastro-esophageal reflux disease without esophagitis; F41.8 Other specified anxiety disorders; F31.9 Bipolar disorder, unspecified; Z79.899 Other long term (current) drug therapy
CPT/HCPCS: 36000; 36415; 70553; 71010; 72110; 80048; 80053; 80175; 80307; 81002; 82550; 82570; 82962; 83036; 83735; 83880; 83986; 84484; 85025; 85027; 85379; 87070; 87430; 90791; 93005; 93268; 93306; 94640; 94760; 95812; 96360; 99214; 99285; G0378; J0696; J1650; J1940; J1953; J2060; Q3014; A9270-GY

== ENCOUNTER 2016-09-29 21:40 | Emergency (ER) | payer OTHER ==
--- NOTE | 2016-09-29 23:39 | ERPHSYRPT ---
- History of Present Illness Time Seen by Provider: 09/29/16 23:25 Historian: patient Exam Limitations: no limitations Patient Subjective Stated Complaint: states that she began having right-sided abdominal pain radiating to the flank since yesterday morning and getting worse - states that she has had some diarrhea - reports that she is unable to keep any food down Triage Nursing Assessment: ambulatory to treatment area - steady, slow gait - moves all extremities with equal strength. skin pwd - no rash/injury. resps easy - non-labored. alert/oriented - unpleasant affect. abd guarding et tenderness with palpation at the RUQ Physician History: RLQ pain since yesterday. Timing/Duration: yesterday Activities at Onset: none Quality: sharpness Abdominal Pain Onset Location: RLQ Pain Radiation: no radiation Severity of Pain-Max: severe Severity of Pain-Current: severe Modifying Factors: Improves With: movement Associated Symptoms: diarrhea, nausea, vomiting Previous symptoms: no prior history Allergies/Adverse Reactions: aspirin Allergy (Mild, Verified 09/29/16 23:15) codeine [Codeine] Allergy (Mild, Verified 09/29/16 23:15) fluoxetine HCl [From Prozac] Allergy (Mild, Verified 09/29/16 23:15) Penicillins Allergy (Mild, Verified 09/29/16 23:15) promethazine HCl [From Phenergan] Allergy (Mild, Verified 09/29/16 23:15) prednisone Adverse Reaction (Mild, Verified 09/29/16 23:15) mouth sores, rash chest and neck doxycycline hyclate [From Vibra-Tabs] Adverse Reaction (Verified 09/29/16 23:15) steroid from breathing treatment Allergy (Uncoded 09/29/16 23:15) Home Medications: Gabapentin [Neurontin] 1,600 mg PO QID 07/10/13 [History] Diltiazem HCl [Cartia Xt] 180 mg PO QPM 09/27/14 [History] Levothyroxine Sodium 100 Mcg [Synthroid 100 Mcg] 100 mcg PO QAM 09/27/14 [ History] Simvastatin [Zocor] 20 mg PO HS 09/27/14 [History] Clopidogrel Bisulfate 75 mg [PLAVIX 75 MG Tablet] 75 mg PO DAILY 04/05/15 [History] Cyclobenzaprine HCl 10 mg [Cyclobenzaprine 10 MG] 10 mg PO BID 07/16/15 [ History] Insulin Detemir [Levemir Flexpen] 7 unit SQ QAM 09/27/15 [History] Lamotrigine 100 mg [lamICTAL 100MG TABLET] 200 mg PO BID 09/27/15 [History ] Tramadol HCl 50 mg [Ultram 50 mg] 50 mg PO Q6HPRN PRN 09/27/15 [History] Diazepam 5 mg [Valium 5 MG] 5 mg PO TID 02/14/16 [History] Estrogens,Esterified [Menest] 1 tab PO UD 04/20/16 [History] Hydrocodone Bit/Acetaminophen [Hydrocodon-Acetaminophn 10-325] 1 tab PO Q4HPRN PRN 04/20/16 [History] Lidocaine HCl 5% Patch [Lidoderm Patch 5%] 1 applic TD DAILY 04/20/16 [ History] Naproxen 500 mg PO BID 04/20/16 [History] Omeprazole 20 MG [Prilosec 20 mg] 20 mg PO DAILY 04/20/16 [History] Trazodone HCl [Oleptro ER] 150 mg PO HS 04/20/16 [History] Triamcinolone Acetonide [Nasacort] 2 sprays IH DAILY 04/20/16 [History] Hx Tetanus, Diphtheria Vaccination/Date Given: Yes Hx Influenza Vaccination/Date Given: Yes Hx Pneumococcal Vaccination/Date Given: Yes Immunizations Up to Date: Yes - Review of Systems Constitutional: No Symptoms Eyes: No Symptoms Ears, Nose, & Throat: No Symptoms Respiratory: No Symptoms Cardiac: No Symptoms Abdominal/Gastrointestinal: Abdominal Pain, Nausea, Vomiting, Diarrhea Genitourinary Symptoms: No Symptoms Musculoskeletal: No Symptoms Skin: No Symptoms Neurological: No Symptoms Psychological: No Symptoms Endocrine: No Symptoms Hematologic/Lymphatic: No Symptoms Immunological/Allergic: No Symptoms - Past Medical History Pertinent Past Medical History: Yes Neurological History: Epilepsy, Peripheral Neuropathy ENT History: No Pertinent History Cardiac History: Hypertension, Other Respiratory History: Asthma Endocrine Medical History: Diabetes Type I, Hypothyroidism Musculoskeletal History: Other GI Medical History: GERD, Hernia History: No Pertinent History Psycho-Social History: Anxiety, Bipolar, Depression, Panic Disorder Female Reproductive Disorders: Endometriosis Other Medical History: A FIB, MVP W/ REGURGITATION, HTN; HX R KNEE PN - Past Surgical History Past Surgical History: Yes Neuro Surgical History: No Pertinent History Cardiac: Cardiac Catheterization Respiratory: No Pertinent History Gastrointestinal: Cholecystectomy, Hernia Repair Genitourinary: No Pertinent History Musculoskeletal: Joint Replacement, Orthopedic Surgery Female Surgical History: Hysterectomy Other Surgical History: torn miniscus and implant-RT KNEE" partial scope replacement" - Social History Smoking Status: Current every day smoker How long have you smoked: 25 Exposure to second hand smoke: No Alcohol Use: None Drug Use: none Patient Lives Alone: No Significant Family History: no pertinent family hx, heart disease - Female History Hx Last Menstrual Period: n/a Hx Now: No - Nursing Vital Signs Nursing Vital Signs: Initial Vital Signs Temperature 99.2 F Temperature Source Oral Pulse Rate 68 Respiratory Rate 16 Blood Pressure [Right Arm] 99/68 Pain Intensity 8 - Physical Exam Eye Exam: eyes nml inspection Ears, Nose, Throat Exam: normal ENT inspection, pharynx normal Neck Exam: normal inspection, non-tender, supple, full range of motion Respiratory Exam: normal breath sounds, lungs clear, airway intact Cardiovascular Exam: regular rate/rhythm, normal heart sounds, normal peripheral pulses Gastrointestinal/Abdomen Exam: soft, normal bowel sounds, tenderness (RLQ at McBurney's point. +Rovsig,+Psoas signs.), No distention Back Exam: normal inspection, normal range of motion, No CVA tenderness Extremity Exam: normal inspection, normal range of motion, pelvis stable Neurologic Exam: alert, oriented x 3, cooperative Skin Exam: normal color, warm, dry SpO2 Interpretation: normal SpO2: 95 Oxygen Delivery: Room Air - Course Nursing assessment & vital signs reviewed: Yes - CT Exams Abdomen/Pelvis CT Interpretation: Negative, Tele-radiologist Report Ordered Tests: Active Orders 24 hr Category Date Time Status IV Insertion STAT Care 09/29/16 23:43 Active NPO (ED) STAT Care 09/29/16 23:43 Active ABDOMEN AND PELVIS W CONTRAST [CT] Stat Exams 09/29/16 23:43 Taken Lactic Acid Urgent Lab 09/29/16 23:43 Completed UA Stat Lab 09/29/16 23:43 Completed Medication Summary Discontinued Medications Generic Name Dose Route Start Last Admin Trade Name Freq PRN Reason Stop Dose Admin Hydromorphone HCl 1 mg 09/29/16 23:43 09/30/16 00:15 Hydromorphone 1 Mg/Ml Ampule IV 09/29/16 23:44 1 mg STAT ONE Administration Hydromorphone HCl Confirm 09/30/16 00:07 Hydromorphone 1 Mg/Ml Ampule Administered 09/30/16 00:08 Dose 1 mg .ROUTE .STK-MED ONE Sodium Chloride 1,000 mls @ 999 mls/hr 09/29/16 23:43 09/30/16 00:10 Sodium Chloride 0.9% 1000 Ml IV 09/30/16 00:43 999 mls/hr .Q1H1M STA Administration Sodium Chloride Confirm 09/30/16 00:07 Sodium Chloride 0.9% 1000 Ml Administered 09/30/16 00:08 Dose 1,000 mls @ ud .ROUTE .STK-MED ONE Ondansetron HCl 4 mg 09/29/16 23:43 09/30/16 00:15 Zofran 4 Mg/2 Ml Vial IV 09/29/16 23:44 4 mg STAT ONE Administration Ondansetron HCl Confirm 09/30/16 00:06 Zofran 4 Mg/2 Ml Vial Administered 09/30/16 00:07 Dose 4 mg .ROUTE .STK-MED ONE Pantoprazole Sodium 40 mg 09/29/16 23:43 09/30/16 00:15 Protonix 40 Mg Iv IV 09/29/16 23:44 40 mg STAT ONE Administration Pantoprazole Sodium Confirm 09/30/16 00:06 Protonix 40 Mg Iv Administered 09/30/16 00:07 Dose 40 mg IV .STK-MED ONE Lab/Rad Data: Laboratory Result Diagrams 09/29/16 00:10 09/29/16 00:10 Laboratory Results 09/30/16 09/30/16 09/29/16 Range/Units 00:10 00:05 00:10 WBC (4.0-10.5) K/mm3 RBC (4.1-5.4) M/mm3 Hgb (12.0-16.0) gm/dl Hct (35-47) % MCV (78-100) fl MCH (26-32) pg MCHC (32-36) g/dl RDW (11.5-14.0) % Plt Count (150-450) K/mm3 MPV (6-9.5) fl Gran % (36.0-66.0) % Lymphocytes % (24.0-44.0) % Monocytes % (0.0-12.0) % Eosinophils % (0.00-5.0) % Basophils % (0.0-0.4) % Basophils # (0-0.4) INR (0.8-3.0) Sodium 144 (136-145) mEq/L Potassium 3.4 L (3.5-5.1) mEq/L Chloride 104 (98-107) mEq/L Carbon Dioxide 30.2 (21-32) mEq/L Anion Gap 13.5 (5-15) MEQ/L BUN 6 L (9-20) mg/dL Creatinine 0.87 (0.55-1.30) mg/dl Estimated GFR > 60 ML/MIN Glucose 100 (70-110) MG/DL Lactic Acid 1.3 (0.4-2.0) Calcium 9.0 (8.5-10.1) mg/dL Total Bilirubin 0.2 (0.2-1.0) mg/dL AST 15 (15-37) U/L ALT 19 (12-78) U/L Alkaline Phosphatase 140 H (46-116) U/L Serum Total Protein 7.4 (6.4-8.2) gm/dL Albumin 3.8 (3.4-5.0) g/dL Ur Collection Type CLEAN CATCH Urine Color YELLOW (YELLOW) Urine Appearance CLEAR (CLEAR) Urine pH 7.0 (5-6) Ur Specific [place] 1.010 (1.005-1.025) Urine Protein NEGATIVE (Negative) Urine Glucose (UA) NEGATIVE (NEGATIVE) mg/dL Urine Ketones NEGATIVE (NEGATIVE) Urine Nitrite NEGATIVE (NEGATIVE) Urine Bilirubin NEGATIVE (NEGATIVE) Urine Urobilinogen 0.2 (0-1) mg/dL Urine WBC (Auto) NEGATIVE (NEGATIVE) Urine RBC (Auto) NEGATIVE (0-5) Laurent/ul Specimen Received 09/30/16:0010 09/29/16 09/29/16 Range/Units 00:10 00:05 WBC 7.2 (4.0-10.5) K/mm3 RBC 4.65 (4.1-5.4) M/mm3 Hgb 13.3 (12.0-16.0) gm/dl Hct 40.4 (35-47) % MCV 86.9 (78-100) fl MCH 28.6 (26-32) pg MCHC 32.9 (32-36) g/dl RDW 13.3 (11.5-14.0) % Plt Count 208 (150-450) K/mm3 MPV 10.9 H (6-9.5) fl Gran % 57.5 (36.0-66.0) % Lymphocytes % 27.3 (24.0-44.0) % Monocytes % 8.8 (0.0-12.0) % Eosinophils % 6.3 H (0.00-5.0) % Basophils % 0.1 (0.0-0.4) % Basophils # 0.01 (0-0.4) INR 0.98 (0.8-3.0) Sodium (136-145) mEq/L Potassium (3.5-5.1) mEq/L Chloride (98-107) mEq/L Carbon Dioxide (21-32) mEq/L Anion Gap (5-15) MEQ/L BUN (9-20) mg/dL Creatinine (0.55-1.30) mg/dl Estimated GFR ML/MIN Glucose (70-110) MG/DL Lactic Acid (0.4-2.0) Calcium (8.5-10.1) mg/dL Total Bilirubin (0.2-1.0) mg/dL AST (15-37) U/L ALT (12-78) U/L Alkaline Phosphatase (46-116) U/L Serum Total Protein (6.4-8.2) gm/dL Albumin (3.4-5.0) g/dL Ur Collection Type Urine Color (YELLOW) Urine Appearance (CLEAR) Urine pH (5-6) Ur Specific [place] (1.005-1.025) Urine Protein (Negative) Urine Glucose (UA) (NEGATIVE) mg/dL Urine Ketones (NEGATIVE) Urine Nitrite (NEGATIVE) Urine Bilirubin (NEGATIVE) Urine Urobilinogen (0-1) mg/dL Urine WBC (Auto) (NEGATIVE) Urine RBC (Auto) (0-5) Laurent/ul Specimen Received - Progress Progress: improved Will see patient in: other (PCP 1 week) Counseled pt/family regarding: lab results, diagnosis, need for follow-up, rad results - Departure Time of Disposition: 02:30 Departure Disposition: Home Clinical Impression: Abdominal pain Qualifiers: Abdominal location: right lower quadrant Qualified Code(s): R10.31 - Right lower quadrant pain Condition: Stable Critical Care Time: Yes Critical Care Time(excluding separately billable procedures): 75-104 minutes Referrals: ERICA BROCK [Primary Care Provider] -
[2016-09-29] MEDS ORDERED: Sodium Chloride 0.9% 1000 ML 1,000 ML IV STA (23:43)
[2016-09-29] MEDS ORDERED: Hydromorphone 1 mg/ml Ampule IV ONE (23:43)
[2016-09-29] MEDS ORDERED: PROTONIX 40 MG IV IV ONE (23:43)
[2016-09-29] MEDS ORDERED: Zofran 4 MG/2 ML VIAL IV ONE (23:43)
[2016-09-30] MEDS ORDERED: PROTONIX 40 MG IV IV ONE (00:06)
[2016-09-30] MEDS ORDERED: Zofran 4 MG/2 ML VIAL ONE (00:06)
[2016-09-30] MEDS ORDERED: Sodium Chloride 0.9% 1000 ML 1,000 ML ONE (00:07)
[2016-09-30] MEDS ORDERED: Hydromorphone 1 mg/ml Ampule ONE (00:07)
[2016-09-30 00:28] LABS: BASOPHIL % 0.1 % (0.0-0.4); Eosinophil % 6.3 % (0.00-5.0); Granulocytes % 57.5 % (36.0-66.0); Lymphocytes % 27.3 % (24.0-44.0); Mean Cell Volume 86.9 fl (78-100); Mean Corpuscular Hemoglobin 28.6 pg (26-32); Mean Platelet Volume 10.9 fl (6-9.5); Monocytes % 8.8 % (0.0-12.0); Platelet Count 208 K/mm3 (150-450); Red Blood Count 4.65 M/mm3 (4.1-5.4); Red Cell Distribution Width 13.3 % (11.5-14.0); White Blood Count 7.2 K/mm3 (4.0-10.5)
[2016-09-30 00:35] LABS: COMPLETE URINE MICROSCOPIC? NO; Collection Type CLEAN CATCH
[2016-09-30 00:47] LABS: INR 0.98 (0.8-3.0)
[2016-09-30 00:50] LABS: ALBUMIN 3.8 g/dL (3.4-5.0); ALKALINE PHOSPHATASE 140 U/L (46-116); ANION GAP 13.5 MEQ/L (5-15); BILIRUBIN,TOTAL 0.2 mg/dL (0.2-1.0); BLOOD UREA NITROGEN 6 mg/dL (9-20); CHLORIDE 104 mEq/L (98-107); Carbon Dioxide 30.2 mEq/L (21-32); Glucose 100 MG/DL (70-110); Potassium 3.4 mEq/L (3.5-5.1); SGOT/AST 15 U/L (15-37); SGPT/ALT 19 U/L (12-78); SODIUM 144 mEq/L (136-145); Total Protein 7.4 gm/dL (6.4-8.2)
[2016-09-30 02:51] VITALS: BP 104/73; PULSE 59; O2SAT 96
--- NOTE | 2016-09-30 09:00 | XRAY ---
Indication: Right abdominal/flank pain. Multiple contiguous axial images obtained through the abdomen and pelvis using 80 cc of Isovue-370 contrast only. Comparison: February 14, 2016. Lung bases again demonstrates bibasilar atelectasis/scarring. Heart is not enlarged. Noncontrasted stomach and bowel loops appear nonobstructed. Normal appendix. No free fluid/air. Again previous hysterectomy and cholecystectomy. Remaining liver, pancreas, spleen, adrenal glands, kidneys, ureters, bladder, and aorta appear unremarkable. No pathologic retroperitoneal lymphadenopathy. Osseous structures remain intact. Stable small fatty umbilical hernia. Impression: Stable fatty umbilical hernia. No new or acute intra-abdominal/pelvic abnormalities. Comment: Preliminary interpretation was made by [facility]. No discrepancy. CTDI 22.36
== END 2016-09-30 02:52 | disposition home or self-care (01) ==
LOC: ED 21:40
DX: R10.31 Right lower quadrant pain (principal); R11.2 Nausea with vomiting, unspecified; R19.7 Diarrhea, unspecified
CPT/HCPCS: 36000; 36415; 74177; 80053; 81002; 83605; 85025; 85610; 87040; 96360; 96361; 96374; 96375; 99284; J1170; J2405

== ENCOUNTER 2016-10-06 21:04 | Emergency (ER) | payer OTHER ==
[2016-10-06] MEDS ORDERED: PROTONIX 40 MG IV IV ONE ×2 (21:33→21:54)
[2016-10-06] MEDS ORDERED: Sodium Chloride 0.9% 1000 ML 1,000 ML IV STA (21:33)
[2016-10-06] MEDS ORDERED: Pepcid 20 MG VIAL IV ONE ×2 (21:33→21:55)
--- NOTE | 2016-10-06 21:37 | ERPHSYRPT ---
- History of Present Illness Time Seen by Provider: 10/06/16 21:34 Historian: patient Exam Limitations: no limitations Patient Subjective Stated Complaint: pt states she has been having rt side abd pain for a while but pain began to go to back and under ribs today. Triage Nursing Assessment: pt alert and oriented, answsers questions approp. pt ambulatory with steady gait noted. respirations nonlabored withlungs cta. abd soft and tender to light palpation on rt side. bowel sounds present in all 4 quads. Physician History: pt states she has been having rt side abd pain for a while but pain began to go to back and under ribs today. Patient had gastric bypass surgery 3-4 years ago, 1 year ago she had EGD and showed bleeding gastrice erosive superficial ulcerations Timing/Duration: day(s) Activities at Onset: none Quality: burning, cramping Abdominal Pain Onset Location: RUQ, epigastric Pain Radiation: back Severity of Pain-Max: moderate Severity of Pain-Current: severe Modifying Factors: Improves With: nothing Associated Symptoms: heartburn, loss of appetite, nausea, vomiting, weakness Previous symptoms: same symptoms as today Allergies/Adverse Reactions: aspirin Allergy (Mild, Verified 10/06/16 21:27) codeine [Codeine] Allergy (Mild, Verified 10/06/16 21:27) fluoxetine HCl [From Prozac] Allergy (Mild, Verified 10/06/16 21:27) Penicillins Allergy (Mild, Verified 10/06/16 21:27) promethazine HCl [From Phenergan] Allergy (Mild, Verified 10/06/16 21:27) prednisone Adverse Reaction (Mild, Verified 10/06/16 21:27) mouth sores, rash chest and neck doxycycline hyclate [From Vibra-Tabs] Adverse Reaction (Verified 10/06/16 21:27) steroid from breathing treatment Allergy (Uncoded 10/06/16 21:27) Home Medications: Gabapentin [Neurontin] 1,600 mg PO QID 07/10/13 [History] Diltiazem HCl [Cartia Xt] 180 mg PO QPM 09/27/14 [History] Levothyroxine Sodium 100 Mcg [Synthroid 100 Mcg] 100 mcg PO QAM 09/27/14 [ History] Simvastatin [Zocor] 20 mg PO HS 09/27/14 [History] Clopidogrel Bisulfate 75 mg [PLAVIX 75 MG Tablet] 75 mg PO DAILY 04/05/15 [History] Cyclobenzaprine HCl 10 mg [Cyclobenzaprine 10 MG] 10 mg PO BID 07/16/15 [ History] Insulin Detemir [Levemir Flexpen] 7 unit SQ QAM 09/27/15 [History] Lamotrigine 100 mg [lamICTAL 100MG TABLET] 200 mg PO BID 09/27/15 [History ] Tramadol HCl 50 mg [Ultram 50 mg] 50 mg PO Q6HPRN PRN 09/27/15 [History] Diazepam 5 mg [Valium 5 MG] 5 mg PO TID 02/14/16 [History] Estrogens,Esterified [Menest] 1 tab PO UD 04/20/16 [History] Hydrocodone Bit/Acetaminophen [Hydrocodon-Acetaminophn 10-325] 1 tab PO Q4HPRN PRN 04/20/16 [History] Lidocaine HCl 5% Patch [Lidoderm Patch 5%] 1 applic TD DAILY 04/20/16 [ History] Naproxen 500 mg PO BID 04/20/16 [History] Omeprazole 20 MG [Prilosec 20 mg] 20 mg PO DAILY 04/20/16 [History] Trazodone HCl [Oleptro ER] 150 mg PO HS 04/20/16 [History] Triamcinolone Acetonide [Nasacort] 2 sprays IH DAILY 04/20/16 [History] Hx Tetanus, Diphtheria Vaccination/Date Given: Yes Hx Influenza Vaccination/Date Given: Yes Hx Pneumococcal Vaccination/Date Given: Yes Immunizations Up to Date: Yes - Review of Systems Constitutional: Lethargy, Malaise, Weakness, No Fever, No Chills Eyes: No Symptoms Ears, Nose, & Throat: No Symptoms Respiratory: No Cough, No Dyspnea Cardiac: No Chest Pain, No Edema, No Syncope Abdominal/Gastrointestinal: Abdominal Pain, Nausea, Vomiting, No Diarrhea Genitourinary Symptoms: No Dysuria Musculoskeletal: No Back Pain, No Neck Pain Skin: No Rash Neurological: No Dizziness, No Focal Weakness, No Sensory Changes Psychological: No Symptoms Endocrine: No Symptoms All Other Systems: Reviewed and Negative - Past Medical History Pertinent Past Medical History: Yes Neurological History: Epilepsy, Peripheral Neuropathy ENT History: No Pertinent History Cardiac History: Hypertension, Other Respiratory History: Asthma Endocrine Medical History: Diabetes Type I, Hypothyroidism Musculoskeletal History: Other GI Medical History: GERD, Hernia History: No Pertinent History Psycho-Social History: Anxiety, Bipolar, Depression, Panic Disorder Female Reproductive Disorders: Endometriosis Other Medical History: A FIB, MVP W/ REGURGITATION, HTN; HX R KNEE PN - Past Surgical History Past Surgical History: Yes Neuro Surgical History: No Pertinent History Cardiac: Cardiac Catheterization Respiratory: No Pertinent History Gastrointestinal: Cholecystectomy, Hernia Repair Genitourinary: No Pertinent History Musculoskeletal: Joint Replacement, Orthopedic Surgery Female Surgical History: Hysterectomy Other Surgical History: torn miniscus and implant-RT KNEE" partial scope replacement" - Social History Smoking Status: Current every day smoker How long have you smoked: 25 Exposure to second hand smoke: No Alcohol Use: None Drug Use: none Patient Lives Alone: No Significant Family History: no pertinent family hx, heart disease - Female History Hx Last Menstrual Period: hyster Hx Now: No - Nursing Vital Signs Nursing Vital Signs: Initial Vital Signs Temperature 98.6 F Temperature Source Oral Pulse Rate 68 Respiratory Rate 22 Blood Pressure [Right Arm] 139/76 Pain Intensity 9 - Physical Exam General Appearance: no apparent distress, alert Eye Exam: PERRL/EOMI, eyes nml inspection Ears, Nose, Throat Exam: normal ENT inspection, pharynx normal, moist mucous membranes Neck Exam: normal inspection, non-tender, supple, full range of motion Respiratory Exam: normal breath sounds, lungs clear, No respiratory distress Cardiovascular Exam: regular rate/rhythm, normal heart sounds Gastrointestinal/Abdomen Exam: normal bowel sounds, tenderness (epigastric area) , No mass Pelvic Exam: not done Rectal Exam: deferred Back Exam: normal inspection, normal range of motion, No CVA tenderness, No vertebral tenderness Extremity Exam: normal inspection, normal range of motion, pelvis stable Neurologic Exam: alert, oriented x 3, cooperative, normal mood/affect, sensation nml, No motor deficits Skin Exam: normal color, warm, dry SpO2: 97 Oxygen Delivery: Room Air - Course Nursing assessment & vital signs reviewed: Yes Ordered Tests: Active Orders 24 hr Category Date Time Status AMYLASE Stat Lab 10/06/16 21:50 Completed CBC W DIFF Stat Lab 10/06/16 21:50 Completed CMP Stat Lab 10/06/16 21:50 Completed Lactic Acid Urgent Lab 10/06/16 21:50 Completed UA Stat Lab 10/06/16 21:37 Completed Urine Triage Profile Stat Lab 10/06/16 21:37 Completed Medication Summary Discontinued Medications Generic Name Dose Route Start Last Admin Trade Name Freq PRN Reason Stop Dose Admin Famotidine 20 mg 10/06/16 21:33 10/06/16 21:59 Pepcid 20 Mg Vial IV 10/06/16 21:34 20 mg STAT ONE Administration Famotidine Confirm 10/06/16 21:55 Pepcid 20 Mg Vial Administered 10/06/16 21:56 Dose 20 mg IV .STK-MED ONE Sodium Chloride 1,000 mls @ 999 mls/hr 10/06/16 21:33 10/06/16 21:58 Sodium Chloride 0.9% 1000 Ml IV 10/06/16 22:33 999 mls/hr .Q1H1M STA Administration Sodium Chloride Confirm 10/06/16 21:55 Sodium Chloride 0.9% 1000 Ml Administered 10/06/16 21:56 Dose 1,000 mls @ ud .ROUTE .STK-MED ONE Pantoprazole Sodium 40 mg 10/06/16 21:33 10/06/16 21:59 Protonix 40 Mg Iv IV 10/06/16 21:34 40 mg STAT ONE Administration Pantoprazole Sodium Confirm 10/06/16 21:54 Protonix 40 Mg Iv Administered 10/06/16 21:55 Dose 40 mg IV .STK-MED ONE Lab/Rad Data: Laboratory Result Diagrams 10/06/16 21:50 10/06/16 21:50 Laboratory Results 10/06/16 10/06/16 10/06/16 Range/Units 21:50 21:50 21:50 WBC 4.6 (4.0-10.5) K/mm3 RBC 4.73 (4.1-5.4) M/mm3 Hgb 13.3 (12.0-16.0) gm/dl Hct 40.6 (35-47) % MCV 85.8 (78-100) fl MCH 28.1 (26-32) pg MCHC 32.8 (32-36) g/dl RDW 13.6 (11.5-14.0) % Plt Count 154 (150-450) K/mm3 MPV 10.2 H (6-9.5) fl Gran % 62.3 (36.0-66.0) % Lymphocytes % 26.3 (24.0-44.0) % Monocytes % 9.2 (0.0-12.0) % Eosinophils % 2.0 (0.00-5.0) % Basophils % 0.2 (0.0-0.4) % Basophils # 0.01 (0-0.4) Sodium 142 (136-145) mEq/L Potassium 3.5 (3.5-5.1) mEq/L Chloride 102 (98-107) mEq/L Carbon Dioxide 30.2 (21-32) mEq/L Anion Gap 13.3 (5-15) MEQ/L BUN 4 L (9-20) mg/dL Creatinine 0.93 (0.55-1.30) mg/dl Estimated GFR > 60 ML/MIN Glucose 95 (70-110) MG/DL Lactic Acid 1.7 (0.4-2.0) Calcium 9.6 (8.5-10.1) mg/dL Total Bilirubin 0.3 (0.2-1.0) mg/dL AST 27 (15-37) U/L ALT 24 (12-78) U/L Alkaline Phosphatase 154 H (46-116) U/L Serum Total Protein 8.3 H (6.4-8.2) gm/dL Albumin 4.2 (3.4-5.0) g/dL Amylase 28 (25-115) U/L Ur Collection Type Urine Color (YELLOW) Urine Appearance (CLEAR) Urine pH (5-6) Ur Specific [place] (1.005-1.025) Urine Protein (Negative) Urine Glucose (UA) (NEGATIVE) mg/dL Urine Ketones (NEGATIVE) Urine Nitrite (NEGATIVE) Urine Bilirubin (NEGATIVE) Urine Urobilinogen (0-1) mg/dL Urine WBC (Auto) (NEGATIVE) Urine RBC (Auto) (0-5) Laurent/ul Urine Opiates Level (NEGATIVE) Ur Methadone (NEGATIVE) Urine Barbiturates (NEGATIVE) Ur Phencyclidine (PCP) (NEGATIVE) Urine Amphetamine (NEGATIVE) U Benzodiazepine Level (NEGATIVE) Urine Cocaine (NEGATIVE) Urine Marijuana (THC) (NEGATIVE) Specimen Received 10/06/16 10/06/16 Range/Units 21:37 21:37 WBC (4.0-10.5) K/mm3 RBC (4.1-5.4) M/mm3 Hgb (12.0-16.0) gm/dl Hct (35-47) % MCV (78-100) fl MCH (26-32) pg MCHC (32-36) g/dl RDW (11.5-14.0) % Plt Count (150-450) K/mm3 MPV (6-9.5) fl Gran % (36.0-66.0) % Lymphocytes % (24.0-44.0) % Monocytes % (0.0-12.0) % Eosinophils % (0.00-5.0) % Basophils % (0.0-0.4) % Basophils # (0-0.4) Sodium (136-145) mEq/L Potassium (3.5-5.1) mEq/L Chloride (98-107) mEq/L Carbon Dioxide (21-32) mEq/L Anion Gap (5-15) MEQ/L BUN (9-20) mg/dL Creatinine (0.55-1.30) mg/dl Estimated GFR ML/MIN Glucose (70-110) MG/DL Lactic Acid (0.4-2.0) Calcium (8.5-10.1) mg/dL Total Bilirubin (0.2-1.0) mg/dL AST (15-37) U/L ALT (12-78) U/L Alkaline Phosphatase (46-116) U/L Serum Total Protein (6.4-8.2) gm/dL Albumin (3.4-5.0) g/dL Amylase (25-115) U/L Ur Collection Type CLEAN CATCH Urine Color YELLOW (YELLOW) Urine Appearance CLEAR (CLEAR) Urine pH 7.0 (5-6) Ur Specific [place] 1.010 (1.005-1.025) Urine Protein NEGATIVE (Negative) Urine Glucose (UA) NEGATIVE (NEGATIVE) mg/dL Urine Ketones NEGATIVE (NEGATIVE) Urine Nitrite NEGATIVE (NEGATIVE) Urine Bilirubin NEGATIVE (NEGATIVE) Urine Urobilinogen 0.2 (0-1) mg/dL Urine WBC (Auto) NEGATIVE (NEGATIVE) Urine RBC (Auto) NEGATIVE (0-5) Laurent/ul Urine Opiates Level NEG. (NEGATIVE) Ur Methadone NEG. (NEGATIVE) Urine Barbiturates NEG. (NEGATIVE) Ur Phencyclidine (PCP) NEG. (NEGATIVE) Urine Amphetamine NEG. (NEGATIVE) U Benzodiazepine Level POS. (NEGATIVE) Urine Cocaine NEG. (NEGATIVE) Urine Marijuana (THC) NEG. (NEGATIVE) Specimen Received 10/06/16 6412 - Progress Progress: improved Counseled pt/family regarding: lab results, diagnosis, need for follow-up - Departure Time of Disposition: 22:35 Departure Disposition: Home Clinical Impression: Abdominal pain Qualifiers: Abdominal location: epigastric Qualified Code(s): R10.13 - Epigastric pain Gastritis Qualifiers: Gastritis type: unspecified gastritis Chronicity: chronic Gastritis bleeding: without bleeding Qualified Code(s): K29.50 - Unspecified chronic gastritis without bleeding Condition: Stable Critical Care Time: Yes Critical Care Time(excluding separately billable procedures): 30-74 minutes Referrals: ERICA BROCK [Primary Care Provider] - Instructions: Abdominal Pain-Adult, [place] Diet, Gastritis Additional Instructions: Please follow the instructions given to you. Please take your medication as prescribed if given. If symptoms recur or get worse, come back to the emergency room if you cannot reach your primary care physician, or call your primary care physician for an appointment. Again if your symptoms get worse, come back to the emergency room. Thanks for visiting emergency room, and let us take care of you.
[2016-10-06 21:46] LABS: Collection Type CLEAN CATCH
[2016-10-06 21:47] LABS: COMPLETE URINE MICROSCOPIC? NO
[2016-10-06] MEDS ORDERED: Sodium Chloride 0.9% 1000 ML 1,000 ML ONE (21:55)
[2016-10-06 21:56] LABS: BASOPHIL % 0.2 % (0.0-0.4); Granulocytes % 62.3 % (36.0-66.0); Lymphocytes % 26.3 % (24.0-44.0); Mean Cell Volume 85.8 fl (78-100); Mean Corpuscular Hemoglobin 28.1 pg (26-32); Mean Platelet Volume 10.2 fl (6-9.5); Monocytes % 9.2 % (0.0-12.0); Platelet Count 154 K/mm3 (150-450); Red Blood Count 4.73 M/mm3 (4.1-5.4); Red Cell Distribution Width 13.6 % (11.5-14.0); White Blood Count 4.6 K/mm3 (4.0-10.5)
[2016-10-06 22:19] LABS: ALBUMIN 4.2 g/dL (3.4-5.0); ALKALINE PHOSPHATASE 154 U/L (46-116); ANION GAP 13.3 MEQ/L (5-15); BILIRUBIN,TOTAL 0.3 mg/dL (0.2-1.0); BLOOD UREA NITROGEN 4 mg/dL (9-20); CHLORIDE 102 mEq/L (98-107); Carbon Dioxide 30.2 mEq/L (21-32); Glucose 95 MG/DL (70-110); Potassium 3.5 mEq/L (3.5-5.1); SGOT/AST 27 U/L (15-37); SGPT/ALT 24 U/L (12-78); SODIUM 142 mEq/L (136-145); Total Protein 8.3 gm/dL (6.4-8.2)
[2016-10-06 23:00] VITALS: BP 123/72; PULSE 87; O2SAT 96
== END 2016-10-06 23:01 | disposition home or self-care (01) ==
LOC: ED 21:04
DX: R10.13 Epigastric pain (principal); K29.50 Unspecified chronic gastritis without bleeding; Z98.84 Bariatric surgery status; R10.11 Right upper quadrant pain; R11.2 Nausea with vomiting, unspecified; R53.1 Weakness; R12 Heartburn; R63.0 Anorexia; Z79.899 Other long term (current) drug therapy; Z79.01 Long term (current) use of anticoagulants; Z79.4 Long term (current) use of insulin
CPT/HCPCS: 36415; 80053; 80307; 81002; 82150; 83605; 85025; 96360; 96374; 96375; 99284

== ENCOUNTER 2016-10-09 18:11 | Inpatient (IN) | payer OTHER ==
[2016-10-09] MEDS ORDERED: Sodium Chloride 0.9% 1000 ML 1,000 ML IV STA (18:35)
[2016-10-09] MEDS ORDERED: Sodium Chloride 0.9% 1000 ML 1,000 ML ONE (18:46)
[2016-10-09 19:04] LABS: BASOPHIL % 0.2 % (0.0-0.4); Eosinophil % 6.3 % (0.00-5.0); Granulocytes % 51.6 % (36.0-66.0); Lymphocytes % 31.1 % (24.0-44.0); Mean Cell Volume 85.1 fl (78-100); Mean Corpuscular Hemoglobin 27.9 pg (26-32); Mean Platelet Volume 10.6 fl (6-9.5); Monocytes % 10.8 % (0.0-12.0); Platelet Count 159 K/mm3 (150-450); Red Blood Count 4.77 M/mm3 (4.1-5.4); Red Cell Distribution Width 13.6 % (11.5-14.0); White Blood Count 4.6 K/mm3 (4.0-10.5)
[2016-10-09 19:11] LABS: COMPLETE URINE MICROSCOPIC? NO; Collection Type CLEAN CATCH
[2016-10-09 19:26] LABS: ALBUMIN 4.4 g/dL (3.4-5.0); ALKALINE PHOSPHATASE 178 U/L (46-116); ANION GAP 14.5 MEQ/L (5-15); BILIRUBIN,TOTAL 0.4 mg/dL (0.2-1.0); BLOOD UREA NITROGEN 7 mg/dL (9-20); CHLORIDE 102 mEq/L (98-107); Carbon Dioxide 30.4 mEq/L (21-32); Glucose 103 MG/DL (70-110); LIPASE 106 U/L (73-393); SGOT/AST 35 U/L (15-37); SGPT/ALT 33 U/L (12-78); Total Protein 8.1 gm/dL (6.4-8.2)
--- NOTE | 2016-10-09 19:31 | ERPHSYRPT ---
- History of Present Illness Time Seen by Provider: 10/09/16 18:44 Historian: patient Exam Limitations: no limitations Patient Subjective Stated Complaint: Pt states she has had RUQ pain for 8 days now. She is unable to keep any food down and the pain is getting unbearable. She has been seen in the ER 3 times for the same pain. One week ago she was told she had a clogged duct where the gallbladder was. Triage Nursing Assessment: Pt alert and oriented x3. skin pink warm and dry. afebrile. abdomen soft and tender with palpation. bowel sounds present x4 Physician History: 40-year-old white female with history of multiple medical history including peripheral neuropathy diabetes asthma high blood pressure GERD atrial fibrillation mitral valve prolapse anxiety depression Patient has been seen in the emergency room multiple times over the past several weeks she states she's been having problems for approximately 3 weeks She is complaining of pain in the right upper quadrant and epigastric area for 8 days she states it is now hurting all over her abdomen she states she is unable to keep anything down because of vomiting. Patient has had multiple visits to the ER she had a normal CT of the abdomen on with the exception of a stable fatty umbilical hernia there were no new acute findings at that time patient states she is unable to keep anything down she has a continuing pain in the right upper quadrant and epigastric. She states she is scheduled for an ultrasound tomorrow patient is on hydrocodone 10/ 325 she refilled for 90 of these tablets on September 25, 2016 she is also on Valium 5 mg #90 tablets which was filled on September 12, 2016 She has no fevers no other complaints. Past medical history includes epilepsy, peripheral neuropathy, diabetes, asthma , high blood pressure, GERD, endometriosis, anxiety, bipolar, depression, panic disorder, mitral valve prolapse with regards, atrial fibrillation, high blood pressure patient has had right knee surgery past surgical history includes cardiac catheter cholecystectomy hernia repair hysterectomy meniscus repair on the right knee with the scope Timing/Duration: day(s) (patient states pain constant for 8 days states similar pain for 3 weeks) Activities at Onset: none Quality: cramping Abdominal Pain Onset Location: RUQ, epigastric Severity of Pain-Max: moderate Severity of Pain-Current: moderate Modifying Factors: Improves With: eating, vomiting. Worsens With: analgesics, antacids, breathing, coughing, defecating, exercise, lying down, movement, palpation, rest, urinating, position, walking, other Associated Symptoms: nausea, vomiting, No back, No chest pain, No diaphoresis, No diarrhea, No fever/chills, No fatigue, No headache, No heartburn, No loss of appetite, No neck pain, No rash, No shortness of breath, No syncope Previous symptoms: same symptoms as today (patient seen multiple times for same complaint) Allergies/Adverse Reactions: aspirin Allergy (Mild, Verified 10/09/16 18:25) codeine [Codeine] Allergy (Mild, Verified 10/09/16 18:25) fluoxetine HCl [From Prozac] Allergy (Mild, Verified 10/09/16 18:25) Penicillins Allergy (Mild, Verified 10/09/16 18:25) promethazine HCl [From Phenergan] Allergy (Mild, Verified 10/09/16 18:25) doxycycline hyclate [From Vibra-Tabs] Adverse Reaction (Verified 10/09/16 18:25) steroid from breathing treatment Allergy (Uncoded 10/06/16 21:27) Home Medications: Gabapentin [Neurontin] 1,600 mg PO QID 07/10/13 [History] Diltiazem HCl [Cartia Xt] 180 mg PO QPM 09/27/14 [History] Levothyroxine Sodium 100 Mcg [Synthroid 100 Mcg] 100 mcg PO QAM 09/27/14 [ History] Simvastatin [Zocor] 20 mg PO HS 09/27/14 [History] Clopidogrel Bisulfate 75 mg [PLAVIX 75 MG Tablet] 75 mg PO DAILY 04/05/15 [History] Cyclobenzaprine HCl 10 mg [Cyclobenzaprine 10 MG] 10 mg PO BID 07/16/15 [ History] Insulin Detemir [Levemir Flexpen] 7 unit SQ QAM 09/27/15 [History] Lamotrigine 100 mg [lamICTAL 100MG TABLET] 200 mg PO BID 09/27/15 [History ] Tramadol HCl 50 mg [Ultram 50 mg] 50 mg PO Q6HPRN PRN 09/27/15 [History] Diazepam 5 mg [Valium 5 MG] 5 mg PO TID 02/14/16 [History] Estrogens,Esterified [Menest] 1 tab PO UD 04/20/16 [History] Hydrocodone Bit/Acetaminophen [Hydrocodon-Acetaminophn 10-325] 1 tab PO Q4HPRN PRN 04/20/16 [History] Lidocaine HCl 5% Patch [Lidoderm Patch 5%] 1 applic TD DAILY 04/20/16 [ History] Naproxen 500 mg PO BID 04/20/16 [History] Omeprazole 20 MG [Prilosec 20 mg] 20 mg PO DAILY 04/20/16 [History] Trazodone HCl [Oleptro ER] 150 mg PO HS 04/20/16 [History] Triamcinolone Acetonide [Nasacort] 2 sprays IH DAILY 04/20/16 [History] Cyanocobalamin (Vitamin B-12) [Vitamin B12] 2,500 mcg PO DAILY 10/09/16 [History ] Dulaglutide [Trulicity] 0.75 mg SQ WEEKLY 10/09/16 [History] Folic Acid 1 mg PO BID 10/09/16 [History] Pyridoxine HCl 100 mg [Vitamin B-6 (Pyridoxine) 100 MG] 100 mg PO DAILY [History] Hx Tetanus, Diphtheria Vaccination/Date Given: Yes Hx Influenza Vaccination/Date Given: Yes Hx Pneumococcal Vaccination/Date Given: Yes Immunizations Up to Date: Yes - Review of Systems Constitutional: No Fever, No Chills Eyes: No Symptoms Ears, Nose, & Throat: No Symptoms Respiratory: No Cough, No Dyspnea Abdominal/Gastrointestinal: Abdominal Pain, Nausea, Vomiting, No Diarrhea, No Constipation, No Hematemesis, No Hematochezia, No Melena, No Dysphagia, No Appetite Changes Genitourinary Symptoms: No Dysuria Musculoskeletal: No Back Pain, No Neck Pain Skin: No Rash Neurological: No Dizziness, No Focal Weakness, No Sensory Changes Psychological: No Symptoms Endocrine: No Symptoms All Other Systems: Reviewed and Negative - Past Medical History Pertinent Past Medical History: Yes Neurological History: Epilepsy, Peripheral Neuropathy ENT History: No Pertinent History Cardiac History: Hypertension, Other Respiratory History: Asthma Endocrine Medical History: Diabetes Type I, Hypothyroidism Musculoskeletal History: Other GI Medical History: GERD, Hernia History: No Pertinent History Psycho-Social History: Anxiety, Bipolar, Depression, Panic Disorder Female Reproductive Disorders: Endometriosis Other Medical History: A FIB, MVP W/ REGURGITATION, HTN; HX R KNEE PN - Past Surgical History Past Surgical History: Yes Neuro Surgical History: No Pertinent History Cardiac: Cardiac Catheterization Respiratory: No Pertinent History Gastrointestinal: Cholecystectomy, Hernia Repair Genitourinary: No Pertinent History Musculoskeletal: Joint Replacement, Orthopedic Surgery Female Surgical History: Hysterectomy Other Surgical History: torn miniscus and implant-RT KNEE" partial scope replacement" - Social History Smoking Status: Current every day smoker How long have you smoked: 25 Exposure to second hand smoke: No Alcohol Use: None Drug Use: none Patient Lives Alone: No Significant Family History: no pertinent family hx, heart disease - Female History Hx Last Menstrual Period: hyster Hx Now: No - Nursing Vital Signs Nursing Vital Signs: Initial Vital Signs Temperature 98 F Temperature Source Oral Pulse Rate 85 Respiratory Rate 16 Blood Pressure [Right Arm] 108/65 Pain Intensity 10 - Physical Exam General Appearance: no apparent distress, alert Eye Exam: PERRL/EOMI, eyes nml inspection Ears, Nose, Throat Exam: normal ENT inspection, pharynx normal, moist mucous membranes Neck Exam: normal inspection, non-tender, supple, full range of motion Respiratory Exam: normal breath sounds, lungs clear, No respiratory distress Cardiovascular Exam: regular rate/rhythm, normal heart sounds Gastrointestinal/Abdomen Exam: soft, normal bowel sounds, tenderness (mild diffuse tenderness , more pronounced in the epigastric and right upper quadrant) Back Exam: normal inspection, normal range of motion, No CVA tenderness, No vertebral tenderness Extremity Exam: normal inspection, normal range of motion, pelvis stable Neurologic Exam: alert, oriented x 3, cooperative, normal mood/affect, nml cerebellar function, sensation nml, No motor deficits Skin Exam: normal color, warm, dry SpO2 Interpretation: normal (95%) SpO2: 95 Oxygen Delivery: Room Air - Course Nursing assessment & vital signs reviewed: Yes Ordered Tests: Active Orders 24 hr Category Date Time Status Clean Catch Urine Specimen STAT Care 10/09/16 18:35 Active IV Insertion STAT Care 10/09/16 18:35 Active CBC W DIFF Stat Lab 10/09/16 19:01 Completed CMP Stat Lab 10/09/16 19:01 Completed LIPASE Stat Lab 10/09/16 19:01 Completed UA Stat Lab 10/09/16 19:01 Completed Medication Summary Discontinued Medications Generic Name Dose Route Start Last Admin Trade Name Parker PRN Reason Stop Dose Admin Sodium Chloride 1,000 mls @ 999 mls/hr 10/09/16 18:35 10/09/16 18:48 Sodium Chloride 0.9% 1000 Ml IV 10/09/16 19:35 999 mls/hr .Q1H1M STA Administration Sodium Chloride Confirm 10/09/16 18:46 Sodium Chloride 0.9% 1000 Ml Administered 10/09/16 18:47 Dose 1,000 mls @ ud .ROUTE .STK-MED ONE Lab/Rad Data: Laboratory Result Diagrams 10/09/16 19:01 10/09/16 19:01 Laboratory Results 10/09/16 10/09/16 10/09/16 Range/Units 19: 19: 19:01 WBC 4.6 (4.0-10.5) K/mm3 RBC 4.77 (4.1-5.4) M/mm3 Hgb 13.3 (12.0-16.0) gm/dl Hct 40.6 (35-47) % MCV 85.1 (78-100) fl MCH 27.9 (26-32) pg MCHC 32.8 (32-36) g/dl RDW 13.6 (11.5-14.0) % Plt Count 159 (150-450) K/mm3 MPV 10.6 H (6-9.5) fl Gran % 51.6 (36.0-66.0) % Lymphocytes % 31.1 (24.0-44.0) % Monocytes % 10.8 (0.0-12.0) % Eosinophils % 6.3 H (0.00-5.0) % Basophils % 0.2 (0.0-0.4) % Basophils # 0.01 (0-0.4) Sodium 143 (136-145) mEq/L Potassium 3.0 L* (3.5-5.1) mEq/L Chloride 102 (98-107) mEq/L Carbon Dioxide 30.4 (21-32) mEq/L Anion Gap 14.5 (5-15) MEQ/L BUN 7 L (9-20) mg/dL Creatinine 0.95 (0.55-1.30) mg/dl Estimated GFR > 60 ML/MIN Glucose 103 (70-110) MG/DL Calcium 9.4 (8.5-10.1) mg/dL Total Bilirubin 0.4 (0.2-1.0) mg/dL AST 35 (15-37) U/L ALT 33 (12-78) U/L Alkaline Phosphatase 178 H (46-116) U/L Serum Total Protein 8.1 (6.4-8.2) gm/dL Albumin 4.4 (3.4-5.0) g/dL Lipase 106 (73-393) U/L Ur Collection Type CLEAN CATCH Urine Color YELLOW (YELLOW) Urine Appearance CLEAR (CLEAR) Urine pH 6.0 (5-6) Ur Specific Connelly <=1.005 (1.005-1.025) Urine Protein NEGATIVE (Negative) Urine Glucose (UA) NEGATIVE (NEGATIVE) mg/dL Urine Ketones NEGATIVE (NEGATIVE) Urine Nitrite NEGATIVE (NEGATIVE) Urine Bilirubin NEGATIVE (NEGATIVE) Urine Urobilinogen 0.2 (0-1) mg/dL Urine WBC (Auto) NEGATIVE (NEGATIVE) Urine RBC (Auto) NEGATIVE (0-5) Laurent/ul Specimen Received [id number] - Progress Progress: improved Progress Note: 10/09/16 19:54 40-year-old white female with a history of epilepsy peripheral neuropathy diabetes asthma high blood pressure GERD endometriosis anxiety bipolar depression panic disorder mitral valve prolapse high blood pressure Patient arrives with complaints of epigastric pain which she states has become diffuse going on for the last 3 weeks she states that she has been unable to eat for 8 days and continues to have the abdominal pain she has of vomiting whenever she eats. Patient has been seen in the emergency room multiple times secondary to the same and her labs have been essentially normal she did have a CT of the abdomen which showed a fatty umbilical hernia on September 29, 2016 otherwise negative On physical examination patient really does not appear to be in acute distress she is tender however diffusely with palpation of her abdomen bowel sounds are negative there is no rebound no masses noted. Patient's labs show white count of 4.6 hemoglobin 13.3 hematocrit 40.6 Chemistry the is remarkable for a potassium of 3.0 otherwise normal, lipase is 106 urinalysis is unremarkable Patient is on hydrocodone 10/325 she filled 90 of these tablets on September 25, 2016 she is also on Valium 5 mg she filled 90 of these tablets on September 12, 2016 Patient is given IV fluids in the emergency room I've discussed the case with Dr. Alfaro will give patient potassium [address] patient on observation with normal saline with 20 mEq of potassium chloride per liter to run at 100 mL per hour. Will order a gallbladder ultrasound, CBC CMP amylase and lipase in the morning. Will order morphine 4 mg IV every 4 hours when necessary pain and Zofran 4 mg every 4 hours as needed for nausea and vomiting. - Departure Time of Disposition: 19:58 Departure Disposition: Observation Clinical Impression: Hypokalemia Abdominal pain Qualifiers: Abdominal location: right upper quadrant Qualified Code(s): R10.11 - Right upper quadrant pain Nausea and vomiting Qualifiers: Vomiting type: unspecified Vomiting Intractability: non-intractable Qualified Code(s): R11.2 - Nausea with vomiting, unspecified Condition: Fair Critical Care Time: No
[2016-10-09 19:33] LABS: SODIUM 143 mEq/L (136-145)
[2016-10-09] MEDS ORDERED: Klor Con 10 MEQ PO ONE ×2 (19:53→19:58)
[2016-10-09] MEDS ORDERED: Zofran 4 MG/2 ML VIAL IV PRN (20:31)
[2016-10-09] MEDS: Sodium Chloride 0.9% W/ 20 mEq KCl/LITER 1,000 ML IV SCH (21:11)
[2016-10-09] MEDS: MORPHINE SULFATE 4 MG INJ IV PRN (21:15)
[2016-10-09] MEDS ORDERED: Naprosyn 500 MG PO PRN (21:35)
[2016-10-09] MEDS ORDERED: Valium 5 MG PO SCH (22:00)
[2016-10-10] MEDS: Cardizem CD 180 MG PO SCH ×2 (00:23→21:36)
[2016-10-10] MEDS: Neurontin 400 MG PO SCH ×5 (00:23→21:35)
[2016-10-10] MEDS: lamICTAL 100MG TABLET PO SCH ×3 (00:23→21:35)
[2016-10-10] MEDS: KEPPRA 500 MG PO SCH ×3 (00:24→21:35)
[2016-10-10] MEDS: Desyrel 150 MG PO SCH ×2 (00:24→21:35)
[2016-10-10] MEDS: ZOCOR 20MG PO SCH ×2 (00:24→21:35)
[2016-10-10] MEDS: FOLATE 1 MG PO SCH ×3 (00:24→21:35)
[2016-10-10] MEDS: NICODERM CQ 14 MG TOP SCH ×2 (00:25→21:35)
[2016-10-10 05:58] LABS: BASOPHIL % 0.2 % (0.0-0.4); Eosinophil % 8.6 % (0.00-5.0); Granulocytes % 32.8 % (36.0-66.0); Lymphocytes % 43.6 % (24.0-44.0); Mean Cell Volume 87.5 fl (78-100); Mean Platelet Volume 10.9 fl (6-9.5); Monocytes % 14.8 % (0.0-12.0); Platelet Count 135 K/mm3 (150-450); Red Blood Count 3.92 M/mm3 (4.1-5.4); Red Cell Distribution Width 13.5 % (11.5-14.0); White Blood Count 4.4 K/mm3 (4.0-10.5)
[2016-10-10 06:06] LABS: ALBUMIN 3.4 g/dL (3.4-5.0); ALKALINE PHOSPHATASE 133 U/L (46-116); ANION GAP 13.2 MEQ/L (5-15); BILIRUBIN,TOTAL 0.3 mg/dL (0.2-1.0); BLOOD UREA NITROGEN 5 mg/dL (9-20); CHLORIDE 108 mEq/L (98-107); Carbon Dioxide 27.2 mEq/L (21-32); Glucose 125 MG/DL (70-110); LIPASE 82 U/L (73-393); Potassium 3.8 mEq/L (3.5-5.1); SGOT/AST 26 U/L (15-37); SGPT/ALT 25 U/L (12-78); SODIUM 145 mEq/L (136-145); Total Protein 6.4 gm/dL (6.4-8.2)
[2016-10-10] MEDS ORDERED: Sodium Chloride 0.9% W/ 20 mEq KCl/LITER 1,000 ML IV ONE (06:29)
[2016-10-10] MEDS: Sodium Chloride 0.9% W/ 20 mEq KCl/LITER 1,000 ML IV SCH ×2 (06:30→15:41)
[2016-10-10] MEDS ORDERED: Naprosyn 500 MG PO PRN (06:33)
[2016-10-10] MEDS ORDERED: NON-FORMULARY ITEM (Dulaglutide [Trulicity] 0.75 MG) SQ SCH (08:00)
[2016-10-10] MEDS ORDERED: Cyclobenzaprine 10 MG PO PRN (08:00)
[2016-10-10] MEDS ORDERED: ESTROGENS ESTERIFIED PO SCH (08:00)
[2016-10-10] MEDS ORDERED: MEDICATION INTERVENTION MC PRN (08:14)
--- NOTE | 2016-10-10 08:57 | PCM.HP ---
History of Present Illness - Chief Complaint Chief Complaint: acute pain, N/V History of Present Illness: is a 40 year old female well known to me wtih multiple medical issues who c/o 8d of not tolerating po well and RUQ/epigastric pain. The pain has slowly become more generalied over the past several days. It's 03/13 now, she states. Had EGD last year with Dr. Jeter. She is currently NPO. - Review of Systems Constitutional: Fever (to 101.6 few days ago) Respiratory: Cough (prod black/green sputum) Abdominal/Gastrointestinal: Abdominal Pain, Nausea, Vomiting, Diarrhea (chronic , IBS), Hematochezia (chronic, IBS) Musculoskeletal: Back Pain, Joint Pain (fibromyalgia) Neurological: Dizziness (has intermittent c/o) Psychological: Anxiety, Depression, No Suicidal Ideations All Other Systems: Reviewed and Negative Medications & Allergies Home Medications: Home Medication List Gabapentin [Neurontin] 1,600 mg PO QID 07/10/13 [History Confirmed 10/09/16] Diltiazem HCl [Cartia Xt] 180 mg PO QPM 09/27/14 [History Confirmed 10/09/16] Levothyroxine Sodium 100 Mcg [Synthroid 100 Mcg] 100 mcg PO QAM 09/27/14 [ History Confirmed 10/09/16] Simvastatin [Zocor] 20 mg PO HS 09/27/14 [History Confirmed 10/09/16] Clopidogrel Bisulfate 75 mg [PLAVIX 75 MG Tablet] 75 mg PO DAILY 04/05/15 [History Confirmed 10/09/16] Cyclobenzaprine HCl 10 mg [Cyclobenzaprine 10 MG] 10 mg PO BID 07/16/15 [ History Confirmed 10/09/16] Insulin Detemir [Levemir Flexpen] 7 unit SQ QAM 09/27/15 [History Confirmed 01/18] Lamotrigine 100 mg [lamICTAL 100MG TABLET] 200 mg PO BID 09/27/15 [ History Confirmed 10/09/16] Tramadol HCl 50 mg [Ultram 50 mg] 50 mg PO Q6HPRN PRN 09/27/15 [History Confirmed 10/09/16] Bumetanide 1 mg [Bumex 1 mg] 1 mg PO DAILY #30 tablet 10/02/15 [Rx Confirmed 10/09/16] Diazepam 5 mg [Valium 5 MG] 5 mg PO TID 02/14/16 [History Confirmed ] Sucralfate 1 gm [Carafate 1 GM] 1 g PO ACHS #56 tablet 02/19/16 [Rx Confirmed 10/09/16] Estrogens,Esterified [Menest] 1 tab PO UD 04/20/16 [History Confirmed 10/09/16] Hydrocodone Bit/Acetaminophen [Hydrocodon-Acetaminophn 10-325] 1 tab PO Q4HPRN PRN 04/20/16 [History Confirmed 10/09/16] Lidocaine HCl 5% Patch [Lidoderm Patch 5%] 1 applic TD DAILY 04/20/16 [ History Confirmed 10/09/16] Naproxen 500 mg PO BID 04/20/16 [History Confirmed 10/09/16] Omeprazole 20 MG [Prilosec 20 mg] 20 mg PO DAILY 04/20/16 [History Confirmed 01/18] Trazodone HCl [Oleptro ER] 150 mg PO HS 04/20/16 [History Confirmed 10/09/16] Triamcinolone Acetonide [Nasacort] 2 sprays IH DAILY 04/20/16 [History Confirmed 10/09/16] Levetiracetam [Keppra 500 mg ] 500 mg PO BID #60 tablet 08/28/16 [Rx Confirmed 10/09/16] Cyanocobalamin (Vitamin B-12) [Vitamin B12] 2,500 mcg PO DAILY 10/09/16 [ History Confirmed 10/09/16] Dulaglutide [Trulicity] 0.75 mg SQ WEEKLY 10/09/16 [History Confirmed 10/09/16] Folic Acid 1 mg PO BID 10/09/16 [History Confirmed 10/09/16] Pyridoxine HCl 100 mg [Vitamin B-6 (Pyridoxine) 100 MG] 100 mg PO DAILY [History Confirmed 10/09/16] Allergies/Adverse Reactions: Allergies Allergy/AdvReac Type Severity Reaction Status Date / Time aspirin Allergy Mild Verified 10/09/16 18:25 codeine [Codeine] Allergy Mild Verified 10/09/16 18:25 fluoxetine HCl [From Prozac] Allergy Mild Verified 10/09/16 18:25 Penicillins Allergy Mild Verified 10/09/16 18:25 promethazine HCl Allergy Mild Verified 10/09/16 18:25 [From Phenergan] doxycycline hyclate AdvReac Verified 10/09/16 18:25 [From Vibra-Tabs] steroid from breathing Allergy Uncoded 10/06/16 21:27 treatment - Past Medical History Past Medical History: Yes Neurological History: Epilepsy, Peripheral Neuropathy ENT History: No Pertinent History Cardiac History: Hypertension, Other Respiratory History: Asthma Endocrine Medical History: Diabetes Type I, Hypothyroidism Musculoskelatal History: Other GI Medical History: GERD, Hernia History: No Pertinent History Pyscho-Social History: Anxiety, Bipolar, Depression, Panic Disorder Reproductive Disorders: Endometriosis Comment: A FIB, MVP W/ REGURGITATION, HTN; HX R KNEE PN - Female History Hx Last Menstrual Period: hyster Are you now?: No - Past Surgical History Past Surgical History: Yes Neuro Surgical History: No Pertinent History Cardiac History: Cardiac Catheterization Respiratory Surgery: No Pertinent History GI Surgical History: Cholecystectomy, Hernia Repair Genitourinary Surgical Hx: No Pertinent History Musculskeletal Surgical Hx: Joint Replacement, Orthopedic Surgery Female Surgical History: Hysterectomy Other Surgical History: torn miniscus and implant-RT KNEE" partial scope replacement" - Social History Smoking Status: Current every day smoker How long have you smoked: 25 Exposure to second hand smoke: Yes Alcohol: None Drug Use: none Significant Family History: no pertinent family hx, heart disease - Physical Exam Vital Signs: Vital Signs - 24 hr Temp Pulse Resp BP Pulse Ox 10/10/16 07:43 97.7 F 76 18 89/56 94 L 10/10/16 07:10 73 16 94 L 10/10/16 04:00 97.8 F 73 16 92/50 94 L 10/10/16 00:00 97.6 F 73 18 98/62 94 L 10/09/16 22:09 80 18 97 10/09/16 20:44 97.7 F 77 18 127/77 97 10/09/16 20:12 82 16 98/54 96 10/09/16 19:59 95 10/09/16 19:05 85 16 108/65 95 10/09/16 18:12 98 F 87 18 126/81 96 General Appearance: no apparent distress (sitting up in her bed, working a word search) Neurologic Exam: alert, oriented x 3, cooperative Respiratory Exam: normal breath sounds, lungs clear, No crackles/rales, No rhonchi, No wheezing Cardiovascular Exam: regular rate/rhythm, normal heart sounds, No murmur Gastrointestinal/Abdomen Exam: soft, tenderness (generalized, worse in epigastrum), other (hypoactive bowel sounds), No rebound Extremity Exam: No pedal edema, No swelling Skin Exam: normal color, warm, dry Results - Labs Lab/Micro Results: Accuchecks Date 10/10/16 Date 10/09/16 Time 07:30 Time 21:30 Accucheck Value: 87 Accucheck Value: 98 Lab Results-Last 24 Hours 10/10/16 10/10/16 Range/Units 05:05 05:05 WBC 4.4 (4.0-10.5) K/mm3 RBC 3.92 L (4.1-5.4) M/mm3 Hgb 11.0 L (12.0-16.0) gm/dl Hct 34.3 L (35-47) % MCV 87.5 (78-100) fl MCH 28.0 (26-32) pg MCHC 32.1 (32-36) g/dl RDW 13.5 (11.5-14.0) % Plt Count 135 L (150-450) K/mm3 MPV 10.9 H (6-9.5) fl Gran % 32.8 L (36.0-66.0) % Lymphocytes % 43.6 (24.0-44.0) % Monocytes % 14.8 H (0.0-12.0) % Eosinophils % 8.6 H (0.00-5.0) % Basophils % 0.2 (0.0-0.4) % Basophils # 0.01 (0-0.4) Sodium 145 (136-145) mEq/L Potassium 3.8 (3.5-5.1) mEq/L Chloride 108 H (98-107) mEq/L Carbon Dioxide 27.2 (21-32) mEq/L Anion Gap 13.2 (5-15) MEQ/L BUN 5 L (9-20) mg/dL Creatinine 0.85 (0.55-1.30) mg/dl Estimated GFR > 60 ML/MIN Glucose 125 H (70-110) MG/DL Calcium 8.4 L (8.5-10.1) mg/dL Total Bilirubin 0.3 (0.2-1.0) mg/dL AST 26 (15-37) U/L ALT 25 (12-78) U/L Alkaline Phosphatase 133 H (46-116) U/L Serum Total Protein 6.4 (6.4-8.2) gm/dL Albumin 3.4 (3.4-5.0) g/dL Amylase 18 L (25-115) U/L Lipase 82 (73-393) U/L Accuchecks Date 10/10/16 Date 10/09/16 Time 07:30 Time 21:30 Accucheck Value: 87 Accucheck Value: 98 - Radiology Impressions Radiology Exams & Impressions: Radiology Procedures Category Date Time Status LIVER OR SPLEEN [US] Routine Exams 10/10/16 08:00 Ordered - Other Procedures and Tests Respiratory Therapy 10/09/16 22:09 Respiratory Nebulizer PRN Assessment/Plan (1) Hypokalemia Current Visit: Yes Status: Acute Assessment & Plan: repleted orally in ER. recheck in a.m. Code(s): E87.6 - HYPOKALEMIA (2) Nausea and vomiting Current Visit: Yes Status: Acute Qualifiers: Vomiting type: unspecified Vomiting Intractability: non-intractable Qualified Code(s): R11.2 - Nausea with vomiting, unspecified Assessment & Plan: on IVF. NPO for now. Code(s): R11.2 - NAUSEA WITH VOMITING, UNSPECIFIED (3) Abdominal pain Current Visit: No Status: Acute Qualifiers: Abdominal location: epigastric Qualified Code(s): R10.13 - Epigastric pain Assessment & Plan: and generalized. Start with EGD; if negative would consider HIDA. Pt s/p cholecystectomy, but perhaps Sphincter of Oddi dysfunction. 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 A1c tends to be normal, has seen Dr. Mccrary in the past. Code(s): E11.9 - TYPE 2 DIABETES MELLITUS WITHOUT COMPLICATIONS
[2016-10-10] MEDS: Flonase NASAL NS SCH (09:45)
[2016-10-10] MEDS: SYNTHROID 100 MCG PO SCH (09:46)
[2016-10-10] MEDS: PLAVIX 75 MG Tablet PO SCH (09:47)
[2016-10-10] MEDS: Lantus Insulin SQ SCH (09:51)
[2016-10-10] MEDS: Protonix 40MG Tablet PO SCH (09:52)
[2016-10-10] MEDS ORDERED: INSULIN DETEMIR 7 UNIT SQ SCH (10:00)
[2016-10-10] MEDS ORDERED: PREMARIN PO SCH (10:00)
[2016-10-10] MEDS ORDERED: TRIAMCINOLONE ACETONIDE IH SCH (10:00)
[2016-10-10] MEDS: MORPHINE SULFATE 4 MG INJ IV PRN ×3 (10:05→22:43)
[2016-10-10] MEDS: Lidoderm Patch 5% TOP SCH (10:07)
[2016-10-10] MEDS: Carafate 1 GM PO SCH ×4 (11:31→21:36)
[2016-10-10] MEDS: Valium 5 MG PO PRN (11:42)
--- NOTE | 2016-10-10 15:45 | XRAY ---
Indication: Epigastric pain. Previous cholecystectomy. Two-dimensional right upper quadrant abdominal sonogram performed. Comparison: None Gallbladder surgically absent. No suspicious mass or fluid collection in the gallbladder fossa. Common bile duct measures 7 mm. Remaining visualized portions of the liver, pancreas, and right kidney appear sonographically unremarkable. Right kidney measures 10 cm in length. No ascites. Impression: Cholecystectomy in a otherwise negative right upper quadrant sonogram.
[2016-10-10] MEDS: PROVENTIL COMMON CANISTER IH PRN ×2 (15:55→21:21)
[2016-10-11] MEDS: Valium 5 MG PO PRN (01:08)
[2016-10-11] MEDS: Sodium Chloride 0.9% W/ 20 mEq KCl/LITER 1,000 ML IV SCH ×2 (02:20→15:32)
[2016-10-11] MEDS ORDERED: Lactated Ringers 1,000 ML IV SCH (06:00)
[2016-10-11] MEDS: PROVENTIL COMMON CANISTER IH PRN ×3 (07:30→22:49)
[2016-10-11] MEDS: Carafate 1 GM PO SCH ×4 (07:46→21:16)
[2016-10-11] MEDS ORDERED: Ketamine HCl 50 MG/ML IV ONE (08:00)
[2016-10-11] MEDS ORDERED: DIPRIVAN 200 MG/20 ML IV ONE (08:00)
[2016-10-11] MEDS: FOLATE 1 MG PO SCH ×2 (09:19→21:16)
[2016-10-11] MEDS: SYNTHROID 100 MCG PO SCH (09:19)
[2016-10-11] MEDS: KEPPRA 500 MG PO SCH ×2 (09:19→21:16)
[2016-10-11] MEDS: Neurontin 400 MG PO SCH ×4 (09:19→21:16)
[2016-10-11] MEDS: lamICTAL 100MG TABLET PO SCH ×2 (09:19→21:15)
[2016-10-11] MEDS: Flonase NASAL NS SCH (09:19)
[2016-10-11] MEDS: PLAVIX 75 MG Tablet PO SCH (09:19)
[2016-10-11] MEDS: Protonix 40MG Tablet PO SCH (09:19)
[2016-10-11] MEDS: Lidoderm Patch 5% TOP SCH (09:19)
[2016-10-11] MEDS: MORPHINE SULFATE 4 MG INJ IV PRN ×3 (09:22→22:35)
[2016-10-11] MEDS: Lantus Insulin SQ SCH (09:58)
--- NOTE | 2016-10-11 10:19 | OP ---
SURGERY DATE: 10/11/16 SURGERY TIME: 755 PREOPERATIVE DIAGNOSIS: 1. ABDOMINAL PAIN. POSTOPERATIVE DIAGNOSIS: 1. NORMAL EXAM. PROCEDURE: 1. EGD. SPECIMENS: None. ESTIMATED BLOOD LOSS: None. SURGEON: Dr. Ovidio Jeter. ANESTHESIA: MAC by Bethel Reinoso CRNA. DESCRIPTION OF PROCEDURE: After informed written consent was obtained, the patient was taken to the endoscopy suite. She underwent monitored anesthesia and a bite block was inserted. The endoscope was inserted in the posterior oropharynx and under direct visualization, the esophagus was traversed. The esophageal mucosa was normal in appearance free of any lesions or defects. Upon entry into the stomach, there was normal rugated gastric mucosa free of lesions or defects. The gastric antrum was inspected and noted to be free of any abnormalities. The pylorus was traversed and the 1st and 2nd portions of the duodenum were within normal limits. Upon withdrawal, the entire gastric mucosa, gastroesophageal junction, and esophageal mucosa again were inspected and noted to be free of any abnormalities. The scope was removed and the patient was transferred back to her room on the floor in excellent condition. Thank you, Dr. Alfaro, for the opportunity to participate in this pleasant patient's care.
--- NOTE | 2016-10-11 11:22 | PCM.DS ---
Discharge Summary Date of Admission: 10/09/16 20:30 Admitting Physician: ERICA BROCK Primary Care Provider: ERICA BROCK Allergies Allergies aspirin Allergy (Mild, Verified 10/09/16 18:25) codeine [Codeine] Allergy (Mild, Verified 10/09/16 18:25) fluoxetine HCl [From Prozac] Allergy (Mild, Verified 10/09/16 18:25) Penicillins Allergy (Mild, Verified 10/09/16 18:25) promethazine HCl [From Phenergan] Allergy (Mild, Verified 10/09/16 18:25) doxycycline hyclate [From Vibra-Tabs] Adverse Reaction (Verified 10/09/16 18:25) steroid from breathing treatment Allergy (Uncoded 10/06/16 21:27) Hospital Summary - Hospital Course Hospital Course: Pt admitted through the Er with Abd pain; had been to ER twice in the past week or so wth abd pain and vomiting. Workup had been negative so pt was discharged to home. On this visit she was admitted for observation. EGD done this morning was negative. Labs are negative. CT abd/pelvis neg (done 09/29/16, stable fatty umbilical hernia, nothing acute) and u/s RUQ negative (this visit) . She was c/o 10/10 pain on admission. Notably, she was sitting on her bed doing a word search and was in no acute distress. Currently I had to wake her for exam (she is s/p EGD) and she c/o 7/10 abd pain but would like something to eat. Pt will get a HIDA scan after discharge (she is s/p cholecytectomy) to r/o sphincter dysfunction. If she tolerates po here, in light of benign testing and exam she can d/c this afternoon. Would have her f/u with GI. She is also c/o several episodes where her hands turn purple. intemittent. no pain. c/o her L eyelid is droopy, states this is an intermittent issue since her CVA, has been happening this morning since the EGD. - Vitals & Intake/Output Vital Signs: Vital Signs Temperature 98.5 F 10/11/16 07:10 Pulse Rate 83 10/11/16 07:30 Respiratory Rate 16 10/11/16 07:30 Blood Pressure 113/67 10/11/16 07:10 O2 Sat by Pulse Oximetry 95 10/11/16 07:30 Intake & Output: Intake & Output 10/08/16 10/09/16 10/10/16 10/11/16 11:59 11:59 11:59 11:59 Intake Total 1369 3565 Output Total 300 500 Balance 1069 3065 Weight 91.881 kg 97.749 kg - Lab Result Diagrams: 10/10/16 05:05 10/10/16 05:05 Lab Results-Last 24 Hrs: Accuchecks Date 10/10/16 Date 10/10/16 Date 10/10/16 Time 22:00 Time 16:30 Time 11:30 Accucheck Value: 89 Accucheck Value: 104 Accucheck Value: 85 Accucheck Value: 95 Micro Results-Entire Visit: Accuchecks Date 10/10/16 Date 10/10/16 Date 10/10/16 Time 22:00 Time 16:30 Time 11:30 Accucheck Value: 89 Accucheck Value: 104 Accucheck Value: 85 Accucheck Value: 95 - Radiology Exams Ordered Rad Exams-Entire Visit: Radiology Procedures Category Date Time Status HEPATOBILIARY W/CCK [NUCMED] Routine Exams 10/11/16 11:15 Ordered LIVER OR SPLEEN [US] Routine Exams 10/10/16 08:00 Completed - Procedures and Test Procedures and Tests throughout Hospitalization: Therapy Orders & Screens 10/09/16 21:21 RT Screen per Nursing Assess ONCE Comment: Protocol Order Physician Instructions: Greater than 3 points order RT Admission Screen Reason For Exam: Triggered on Admission Diagnosis: acute pain, N/V Diagnosis: acute pain, N/V Pneumonia: No Home O2: No Asthma: Yes CHF: Yes Home CPAP/BIPAP: No Home Nebs/MDI: No Total Points: 7 Smoking Cessation Education ONCE Comment: Diagnosis: acute pain, N/V Smoking Status: Current every day smoker How long have you smoked: 25 Have you smoked in the past 12 months: Yes Approximately how many cigarettes per day: 10 Do you dip or chew tobacco: No If,Former Smoker,when did you quit: 3 weeks ago 10/09/16 22:09 Respiratory Nebulizer PRN Comment: Diagnosis: acute pain, N/V 10/10/16 15:55 Respiratory MDI PRN Comment: Diagnosis: acute pain, N/V Discharge Exam General Appearance: no apparent distress (sleeping - wakes to voice) Neurologic Exam: alert, oriented x 3, cooperative Skin Exam: normal color, warm, dry Eye Exam: other (at rest L eyelid mild ptosis. CN VII testing difficult, question lack of effort on L.) Neck Exam: normal inspection, No lymphadenopathy Respiratory Exam: normal breath sounds, lungs clear, No crackles/rales, No rhonchi, No wheezing Cardiovascular Exam: regular rate/rhythm, normal heart sounds, No murmur Gastrointestinal/Abdomen Exam: soft, normal bowel sounds, tenderness ( generalized, more so in epigastrum and suprapubic (pt states she has to urinate) ), No mass, No rebound Extremity Exam: other (radial pulses 2+ bilat, tested yesterday), No pedal edema , No swelling Back Exam: normal inspection Final Diagnosis/Problem List - Final Discharge Diagnosis/Problem (1) Abdominal pain Current Visit: No Status: Acute Assessment & Plan: So far workup - including CT abd/pelvis, labs, u/s RUQ and EGD - is negative. If she tolerates po, would send her home today and have her f/u with GI ([facility] in [place] or [facility] in - per pt preference) [facility]. (2) Hypokalemia Current Visit: Yes Status: Resolved (3) Nausea and vomiting Current Visit: Yes Status: Resolved (4) Diabetes Current Visit: No Status: Chronic Assessment & Plan: stable - Discharge Disposition: Home, Self-Care Condition: Fair Prescriptions: No Action Gabapentin [Neurontin] 1,600 mg PO QID Simvastatin [Zocor] 20 mg PO HS Levothyroxine Sodium 100 Mcg [Synthroid 100 Mcg] 100 mcg PO QAM Diltiazem HCl [Cartia Xt] 180 mg PO QPM Clopidogrel Bisulfate 75 mg [PLAVIX 75 MG Tablet] 75 mg PO DAILY Cyclobenzaprine HCl 10 mg [Cyclobenzaprine 10 MG] 10 mg PO BID Insulin Detemir [Levemir Flexpen] 7 unit SQ QAM Lamotrigine 100 mg [lamICTAL 100MG TABLET] 200 mg PO BID Tramadol HCl 50 mg [Ultram 50 mg] 50 mg PO Q6HPRN PRN PRN Reason: Pain Bumetanide 1 mg [Bumex 1 mg] 1 mg PO DAILY #30 tablet Diazepam 5 mg [Valium 5 MG] 5 mg PO TID Sucralfate 1 gm [Carafate 1 GM] 1 g PO ACHS #56 tablet Hydrocodone Bit/Acetaminophen [Hydrocodon-Acetaminophn 10-325] 1 tab PO Q4HPRN PRN PRN Reason: Pain Trazodone HCl [Oleptro ER] 150 mg PO HS Omeprazole 20 MG [Prilosec 20 mg] 20 mg PO DAILY Triamcinolone Acetonide [Nasacort] 2 sprays IH DAILY Naproxen 500 mg PO BID Lidocaine HCl 5% Patch [Lidoderm Patch 5%] 1 applic TD DAILY Estrogens,Esterified [Menest] 1 tab PO UD Levetiracetam [Keppra 500 mg ] 500 mg PO BID #60 tablet Pyridoxine HCl 100 mg [Vitamin B-6 (Pyridoxine) 100 MG] 100 mg PO DAILY Folic Acid 1 mg PO BID Dulaglutide [Trulicity] 0.75 mg SQ WEEKLY Cyanocobalamin (Vitamin B-12) [Vitamin B12] 2,500 mcg PO DAILY Follow up with: ERICA BROCK [Primary Care Provider] -
[2016-10-11] MEDS: Desyrel 150 MG PO SCH (21:15)
[2016-10-11] MEDS: ZOCOR 20MG PO SCH (21:16)
[2016-10-11] MEDS: Cardizem CD 180 MG PO SCH (21:16)
[2016-10-11] MEDS: NICODERM CQ 14 MG TOP SCH (21:27)
[2016-10-12] MEDS: Sodium Chloride 0.9% W/ 20 mEq KCl/LITER 1,000 ML IV SCH ×2 (01:57→16:55)
[2016-10-12] MEDS: PROVENTIL 2.5 MG/3 ML NEB IH PRN (05:36)
[2016-10-12] MEDS: Carafate 1 GM PO SCH ×4 (06:38→21:23)
[2016-10-12] MEDS: Flonase NASAL NS SCH (09:07)
[2016-10-12] MEDS: Lidoderm Patch 5% TOP SCH (09:07)
[2016-10-12] MEDS: SYNTHROID 100 MCG PO SCH (09:08)
[2016-10-12] MEDS: Neurontin 400 MG PO SCH ×4 (09:08→21:23)
[2016-10-12] MEDS: Protonix 40MG Tablet PO SCH (09:08)
[2016-10-12] MEDS: FOLATE 1 MG PO SCH ×2 (09:08→21:23)
[2016-10-12] MEDS: PLAVIX 75 MG Tablet PO SCH (09:08)
[2016-10-12] MEDS: lamICTAL 100MG TABLET PO SCH ×2 (09:09→21:23)
[2016-10-12] MEDS: KEPPRA 500 MG PO SCH ×2 (09:09→21:23)
[2016-10-12] MEDS: Lantus Insulin SQ SCH ×2 (09:10→10:10)
[2016-10-12] MEDS: MORPHINE SULFATE 4 MG INJ IV PRN (09:13)
[2016-10-12] MEDS: Valium 5 MG PO PRN ×2 (09:13→21:22)
--- NOTE | 2016-10-12 10:24 | XRAY ---
Indication: Right lower quadrant abdominal pain. Comparison: CT abdomen/pelvis September 30, 2016. 2 views of the abdomen demonstrates nonspecific nonobstructed bowel gas pattern with previous cholecystectomy. Solid organs and osseous structures unremarkable. New bibasilar infiltrates/atelectasis, left greater than right. Impression: Nonacute nonobstructed abdomen. New bibasilar infiltrates/atelectasis. Correlate clinically.
[2016-10-12] MEDS ORDERED: TYLENOL 325 MG PO PRN ×2 (10:41→10:54)
[2016-10-12] MEDS: Levofloxacin 500MG/100ML D5W 100 ML IV SCH (10:44)
--- NOTE | 2016-10-12 10:55 | XRAY ---
Indication: Abdominal pain. Remote cholecystectomy. Evaluate sphincter of Florian dysfunction (SOD) scoring. Comparison: None Patient received 5.8 mCi technetium 99 Choletec. Immediate anterior planar imaging was performed. Patient received 1.95 g of IV CCK slowly. Quantitative analysis performed. There is normal hepatic, biliary, and biliary to bowel activity. No abnormal radiopharmaceutical activity to suggest biloma. SOD scoring reveals 1 point given for prominence of biliary tree. Impression: Total SOD score is 1, normal.
[2016-10-12] MEDS: FLAGYL 500 MG IVPB 100 ML IV SCH ×2 (11:40→18:06)
[2016-10-12 11:47] LABS: COMPLETE URINE MICROSCOPIC? NO; Collection Type VOID; Ph 7.5 (5-6)
[2016-10-12] MEDS: MORPHINE SULFATE 10 MG/ML IV PRN ×3 (12:29→21:21)
--- NOTE | 2016-10-12 14:27 | XRAY ---
Indication: Abdominal pain. Multiple contiguous axial images obtained through the abdomen and pelvis prior to and following 80 cc of Isovue-370 contrast. Oral contrast also given. Comparison: September 30, 2016. Lung bases demonstrates worsening bibasilar infiltrates/atelectasis. No effusion. Heart is not enlarged. Noncontrasted images through the abdomen are negative for pathologic visceral calcifications or calculi. Contrasted stomach and bowel loops appear again nonobstructed. Again normal appendix. No free fluid/air. Again previous hysterectomy and cholecystectomy. Postcontrast images demonstrates normal visceral enhancement and renal excretion. Remaining liver, pancreas, spleen, adrenal glands, kidneys, ureters, bladder, and aorta appear normal in CT appearance and attenuation. No pathologic retroperitoneal lymphadenopathy. Osseous structures remain intact. Stable small fatty umbilical hernia. Impression: 1. Noncontrast images negative for pathologic visceral calcification/calculi. 2. Stable fatty umbilical hernia. 3. No new or acute intra-abdominal/pelvic abnormalities. 4. Worsening bibasilar infiltrates/atelectasis. CT DI 23.55
--- NOTE | 2016-10-12 14:28 | PCM.NOTE ---
Date and Time: 10/12/16 1425 Subjective Assessment: She is not feeling well, temp to 100.3 currently. Unable to give specific symptoms. - Review of Systems Constitutional: Fever, Weakness Objective Exam General Appearance: mild distress Neurologic Exam: alert, oriented x 3, cooperative Skin Exam: normal color, warm, dry Respiratory Exam: normal breath sounds, lungs clear, No crackles/rales, No rhonchi, No wheezing Cardiovascular Exam: regular rate/rhythm, normal heart sounds Gastrointestinal/Abdomen Exam: soft, normal bowel sounds, tenderness (throughout ), guarding, No rebound Extremity Exam: No pedal edema, No swelling OBJECTIVE DATA Vital Signs: Vital Signs - 24 hr Temp Pulse Resp BP Pulse Ox 10/12/16 11:23 99.8 F 85 20 113/58 93 L 10/12/16 10:39 89 16 88 L 10/12/16 06:47 100.3 F 100 H 17 109/58 90 L 10/12/16 05:40 94 H 20 88 L 10/12/16 05:32 99.2 F 99 H 24 101/59 83 L 10/11/16 23:39 99.1 F 91 H 16 100/58 92 L 10/11/16 22:49 92 H 18 91 L 10/11/16 20:00 98.4 F 89 14 106/62 91 L 10/11/16 16:16 99 F 89 18 106/67 90 L 10/11/16 15:16 86 14 90 L Oxygen-Last 24 hours O2 Percentage 2 Liters = 28% Pain Assessment - Last Documented Pain Intensity 10 Pain Scale Used 0-10 Pain Scale Intake and Output: Intake & Output 10/10/16 10/11/16 10/12/16 10/13/16 11:59 11:59 11:59 11:59 Intake Total 0 Balance 0 Weight 96.615 kg Lab Results: Accuchecks Date 10/12/16 Time 11:53 Accucheck Value: 117 Radiology Exams: Radiology Procedures Category Date Time Status ABDOMEN AND PELVIS W&WO CONTRA [CT] Urgent Exams 10/12/16 11:46 Taken Multi-Disciplinary Progress Notes: Multi-Disciplinary Progress Notes 10/12/16 09:48 Case Management Note by CIPRIANO AMES SPOKE WITH PT AND TODAY ABOUT DISCHARGE NEEDS. PT IS UNHAPPY THIS AM, WANTING HER MEDICATIONS. WHEN ASKED ABOUT POSSIBLE DISCHARGE NEEDS AT HOME, PT WAS UNSURE AT THIS TIME. PT LIVES WITH . PT ALSO CHECKS HER BLOOD SUGAR 3 TIMES A DAY AND HAS A GLUCOMETER BUT STATES IT'S OLD AND COULD USE A NEW ONE. WILL RE-EVALUATE LATER TODAY. Initialized on 10/12/16 09:48 - END OF NOTE Assessment/Plan (1) Abdominal pain Current Visit: No Status: Acute Qualifiers: Abdominal location: epigastric Qualified Code(s): R10.13 - Epigastric pain Assessment & Plan: she is more tender today. XR abd, followed by CT if no findings. Will start treating for colitis. Code(s): R10.9 - UNSPECIFIED ABDOMINAL PAIN (2) Hypokalemia Current Visit: Yes Status: Resolved Code(s): E87.6 - HYPOKALEMIA (3) Nausea and vomiting Current Visit: Yes Status: Resolved Qualifiers: Vomiting type: unspecified Vomiting Intractability: non-intractable Qualified Code(s): R11.2 - Nausea with vomiting, unspecified Code(s): R11.2 - NAUSEA WITH VOMITING, UNSPECIFIED (4) Diabetes Current Visit: No Status: Chronic Qualifiers: Diabetes mellitus type: type 2 Diabetes mellitus complication status: without complication Diabetes mellitus nursing home insulin use: with nursing home use Qualified Code(s): E11.9 - Type 2 diabetes mellitus without complications ; 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
[2016-10-12] MEDS: NICODERM CQ 14 MG TOP SCH (21:22)
[2016-10-12] MEDS: Cardizem CD 180 MG PO SCH (21:23)
[2016-10-12] MEDS: Desyrel 150 MG PO SCH (21:23)
[2016-10-12] MEDS: ZOCOR 20MG PO SCH (21:24)
[2016-10-13] MEDS: FLAGYL 500 MG IVPB 100 ML IV SCH ×4 (00:27→18:47)
[2016-10-13] MEDS: MORPHINE SULFATE 10 MG/ML IV PRN ×3 (03:14→20:41)
[2016-10-13] MEDS: Sodium Chloride 0.9% W/ 20 mEq KCl/LITER 1,000 ML IV SCH (05:14)
[2016-10-13] MEDS: Carafate 1 GM PO SCH ×4 (07:50→22:59)
[2016-10-13 08:19] LABS: BASOPHIL % 0.2 % (0.0-0.4); Eosinophil % 5.9 % (0.00-5.0); Granulocytes % 53.3 % (36.0-66.0); Lymphocytes % 32.5 % (24.0-44.0); Mean Cell Volume 90.5 fl (78-100); Mean Corpuscular Hemoglobin 28.1 pg (26-32); Mean Platelet Volume 9.9 fl (6-9.5); Monocytes % 8.1 % (0.0-12.0); Platelet Count 158 K/mm3 (150-450); Red Blood Count 3.77 M/mm3 (4.1-5.4); Red Cell Distribution Width 14.2 % (11.5-14.0); White Blood Count 6.3 K/mm3 (4.0-10.5)
--- NOTE | 2016-10-13 08:40 | PCM.NOTE ---
Date and Time: 10/13/16 0835 Subjective Assessment: She has had diarrhea all night. Liam Full liquids. Still c/o abd bloating. Cough. c/o feeling cold. Objective Exam General Appearance: no apparent distress Neurologic Exam: alert, oriented x 3, cooperative Skin Exam: normal color, warm, dry Cardiovascular Exam: regular rate/rhythm, normal heart sounds, No murmur Gastrointestinal/Abdomen Exam: soft, normal bowel sounds, tenderness ( generalized), distention (mild), No mass Extremity Exam: No pedal edema, No swelling OBJECTIVE DATA Vital Signs: Vital Signs - 24 hr Temp Pulse Resp BP Pulse Ox 10/13/16 06:52 98.6 F 73 20 92/54 95 10/13/16 03:25 99.0 F 86 16 107/59 94 L 10/12/16 23:13 93 H 20 93 L 10/12/16 20:21 98.6 F 71 20 110/56 93 L 10/12/16 16:33 98.4 F 78 18 89/51 92 L 10/12/16 11:23 99.8 F 85 20 113/58 93 L 10/12/16 10:39 89 16 88 L Oxygen-Last 24 hours O2 Percentage 2 Liters = 28% O2 Percentage 2 Liters = 28% O2 Percentage 2 Liters = 28% O2 Percentage 2 Liters = 28% O2 Percentage 2 Liters = 28% Pain Assessment - Last Documented Pain Intensity 0 Pain Scale Used FLACC Intake and Output: Intake & Output 10/10/16 10/11/16 10/12/16 10/13/16 11:59 11:59 11:59 11:59 Intake Total 1717 Output Total 1250 Balance 467 Weight 100.471 kg Lab Results: Accuchecks Date 10/13/16 Date 10/12/16 Date 10/12/16 Date 10/12/16 Time 07:30 Time 16:30 Time 11:53 Accucheck Value: 103 Accucheck Value: 110 Accucheck Value: 132 Accucheck Value: 117 Lab Results-Last 24 Hours 10/13/16 Range/Units 08:10 WBC 6.3 (4.0-10.5) K/mm3 RBC 3.77 L (4.1-5.4) M/mm3 Hgb 10.6 L (12.0-16.0) gm/dl Hct 34.1 L (35-47) % MCV 90.5 (78-100) fl MCH 28.1 (26-32) pg MCHC 31.1 L (32-36) g/dl RDW 14.2 H (11.5-14.0) % Plt Count 158 (150-450) K/mm3 MPV 9.9 H (6-9.5) fl Gran % 53.3 (36.0-66.0) % Lymphocytes % 32.5 (24.0-44.0) % Monocytes % 8.1 (0.0-12.0) % Eosinophils % 5.9 H (0.00-5.0) % Basophils % 0.2 (0.0-0.4) % Basophils # 0.01 (0-0.4) Radiology Exams: Radiology Procedures Category Date Time Status ABDOMEN AND PELVIS W&WO CONTRA [CT] Urgent Exams 10/12/16 11:46 Completed Multi-Disciplinary Progress Notes: Multi-Disciplinary Progress Notes 10/12/16 15:47 Case Management Note by CIPRIANO AMES WENT BACK AND SPOKE TO PT, DENIES ANY NEEDS AT DISCHARGE. NEW GLUCAMETER GIVEN TO PT. Initialized on 10/12/16 15:47 - END OF NOTE 10/12/16 09:48 Case Management Note by CIPRIANO AMES SPOKE WITH PT AND TODAY ABOUT DISCHARGE NEEDS. PT IS UNHAPPY THIS AM, WANTING HER MEDICATIONS. WHEN ASKED ABOUT POSSIBLE DISCHARGE NEEDS AT HOME, PT WAS UNSURE AT THIS TIME. PT LIVES WITH . PT ALSO CHECKS HER BLOOD SUGAR 3 TIMES A DAY AND HAS A GLUCOMETER BUT STATES IT'S OLD AND COULD USE A NEW ONE. WILL RE-EVALUATE LATER TODAY. Initialized on 10/12/16 09:48 - END OF NOTE Assessment/Plan (1) Bilateral pneumonia Current Visit: Yes Status: Acute Qualifiers: Pneumonia type: due to unspecified organism Lung location: lower lobe of lung Qualified Code(s): J18.9 - Pneumonia, unspecified organism Assessment & Plan: Bilat infiltrates; she did have temp to 100.3 yesterday; tmax overnight 99.8. On IV levaquin. Code(s): J18.9 - PNEUMONIA, UNSPECIFIED ORGANISM (2) Abdominal pain Current Visit: No Status: Acute Qualifiers: Abdominal location: epigastric Qualified Code(s): R10.13 - Epigastric pain Assessment & Plan: Persistent but tolerating po. Abd CT, RUQ u/s, and HIDA scan have been wnl. When her O2 levels are better would plan on sending her home. She is on IV flagyl, I had started her on this presumptively (although she has no WBC count) because the only finding on previous CT scan was question of enteritis and she had persistent abd pain. Code(s): R10.9 - UNSPECIFIED ABDOMINAL PAIN (3) Hypokalemia Current Visit: Yes Status: Resolved Assessment & Plan: rechecking. 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 diff. Code(s): R19.7 - DIARRHEA, UNSPECIFIED
[2016-10-13 09:11] LABS: ALBUMIN 3.2 g/dL (3.4-5.0); ALKALINE PHOSPHATASE 136 U/L (46-116); BILIRUBIN,TOTAL 0.3 mg/dL (0.2-1.0); BLOOD UREA NITROGEN 3 mg/dL (9-20); CHLORIDE 106 mEq/L (98-107); Carbon Dioxide 29.5 mEq/L (21-32); Glucose 109 MG/DL (70-110); SGOT/AST 29 U/L (15-37); SGPT/ALT 22 U/L (12-78); SODIUM 142 mEq/L (136-145); Total Protein 6.5 gm/dL (6.4-8.2)
[2016-10-13] MEDS: Levofloxacin 500MG/100ML D5W 100 ML IV SCH (10:22)
[2016-10-13] MEDS: Lidoderm Patch 5% TOP SCH (10:22)
[2016-10-13] MEDS: OXYCODONE-ACETAMINOPHEN 10-325 PO PRN (10:23)
[2016-10-13] MEDS: lamICTAL 100MG TABLET PO SCH ×2 (10:23→22:58)
[2016-10-13] MEDS: FOLATE 1 MG PO SCH ×2 (10:23→22:56)
[2016-10-13] MEDS: KEPPRA 500 MG PO SCH ×2 (10:23→22:57)
[2016-10-13] MEDS: SYNTHROID 100 MCG PO SCH (10:23)
[2016-10-13] MEDS: PLAVIX 75 MG Tablet PO SCH (10:24)
[2016-10-13] MEDS: Neurontin 400 MG PO SCH ×4 (10:24→22:56)
[2016-10-13] MEDS: Protonix 40MG Tablet PO SCH (10:24)
[2016-10-13] MEDS: Flonase NASAL NS SCH (10:25)
[2016-10-13] MEDS: Lantus Insulin SQ SCH (10:31)
[2016-10-13] MEDS: NICODERM CQ 14 MG TOP SCH (22:54)
[2016-10-13] MEDS: Cardizem CD 180 MG PO SCH (22:56)
[2016-10-13] MEDS: ZOCOR 20MG PO SCH (22:57)
[2016-10-13] MEDS: Desyrel 150 MG PO SCH (22:58)
[2016-10-14] MEDS: FLAGYL 500 MG IVPB 100 ML IV SCH ×4 (00:15→18:28)
[2016-10-14] MEDS: MORPHINE SULFATE 10 MG/ML IV PRN ×2 (00:23→03:39)
[2016-10-14] MEDS: Carafate 1 GM PO SCH ×4 (07:51→21:43)
[2016-10-14] MEDS: OXYCODONE-ACETAMINOPHEN 10-325 PO PRN (07:58)
[2016-10-14] MEDS: Sodium Chloride 0.9% W/ 20 mEq KCl/LITER 1,000 ML IV SCH ×2 (09:17→20:26)
[2016-10-14] MEDS: Neurontin 400 MG PO SCH ×4 (09:45→21:43)
[2016-10-14] MEDS: lamICTAL 100MG TABLET PO SCH ×2 (09:45→21:43)
[2016-10-14] MEDS: FOLATE 1 MG PO SCH ×2 (09:45→21:43)
[2016-10-14] MEDS: Protonix 40MG Tablet PO SCH (09:45)
[2016-10-14] MEDS: PLAVIX 75 MG Tablet PO SCH (09:45)
[2016-10-14] MEDS: SYNTHROID 100 MCG PO SCH (09:45)
[2016-10-14] MEDS: KEPPRA 500 MG PO SCH ×2 (09:45→21:43)
[2016-10-14] MEDS: Levofloxacin 500MG/100ML D5W 100 ML IV SCH (09:45)
[2016-10-14] MEDS: Flonase NASAL NS SCH (09:46)
[2016-10-14] MEDS: Lidoderm Patch 5% TOP SCH ×2 (09:46→09:53)
[2016-10-14] MEDS: Lantus Insulin SQ SCH (09:53)
--- NOTE | 2016-10-14 11:12 | PCM.NOTE ---
Date and Time: 10/14/16 1106 Subjective Assessment: Patient reports the oxycodone with the flagyl and levofloxacin makes her nauseated. She states the IV morphine does not make her nauseated. She also wants to advance her diet today. She reports she has felt more short of breath today and her oxygen saturation goes down when she takes the oxygen off. She is not on oxygen at home. On review of her home medication list she usually takes bumex, she thinks she may have a history of CHF. she reports a cough today productive of black material. She states she usually takes [place] 10/325 q 6 hours at home for pain. She wants to take a shower but her blood pressure has been the low end of normal and she states it is always this way. She has been able to get a liquid stool in the hat as her grandson visited and was playing in it she reports and then the nurse said it was contaminated. - Review of Systems Constitutional: Fatigue Eyes: No Symptoms Ears, Nose, & Throat: No Symptoms Respiratory: Cough, Short Of Breath Cardiac: No Symptoms Abdominal/Gastrointestinal: Abdominal Pain, Nausea, Diarrhea Genitourinary Symptoms: No Symptoms Musculoskeletal: Back Pain Skin: No Symptoms Neurological: No Symptoms Objective Exam General Appearance: no apparent distress, other (slow to move around in bed but answers questions appropriately) Neurologic Exam: alert, cooperative, depressed mood/affect Skin Exam: normal color, warm, dry Respiratory Exam: other (crackles at left and right base bilat, no wheezing, equal breath sounds, no retractions.) Cardiovascular Exam: regular rate/rhythm, No murmur, No friction rub, No gallop Gastrointestinal/Abdomen Exam: soft, tenderness, distention, other (hyperactive bowel sounds), No mass Extremity Exam: other (no c/c/e) OBJECTIVE DATA Vital Signs: Vital Signs - 24 hr Temp Pulse Resp BP Pulse Ox 10/14/16 07:30 74 18 95 10/14/16 07:00 98.3 F 74 16 90/49 95 10/14/16 03:00 98.3 F 71 16 96/52 97 10/13/16 23:45 77 16 96 10/13/16 23:00 98.4 F 76 18 92/58 98 10/13/16 19:00 98.1 F 73 16 97/57 96 10/13/16 15:00 97.7 F 76 16 94/55 94 L 10/13/16 14:49 95 Oxygen-Last 24 hours O2 Percentage 2 Liters = 28% O2 Percentage 2 Liters = 28% O2 Percentage 2 Liters = 28% O2 Percentage 2 Liters = 28% Pain Assessment - Last Documented Pain Intensity 10 Pain Scale Used [facility] Intake and Output: Intake & Output 10/12/16 10/13/16 10/14/16 10/15/16 06:59 06:59 06:59 06:59 Intake Total 1717 5240 440 Output Total 1250 Balance 467 5240 440 Weight 100.471 kg 100.017 kg Lab Results: Accuchecks Date 10/14/16 Date 10/13/16 Date 10/13/16 Date 10/13/16 Time 07:30 Time 21:45 Time 16:30 Time 11:30 Accucheck Value: 94 Accucheck Value: 95 Accucheck Value: 83 Accucheck Value: 110 Radiology Exams: Radiology Procedures Category Date Time Status ABDOMEN AND PELVIS W&WO CONTRA [CT] Urgent Exams 10/12/16 11:46 Completed Assessment/Plan (1) Bilateral pneumonia Current Visit: Yes Status: Acute Qualifiers: Pneumonia type: due to unspecified organism Lung location: lower lobe of lung Qualified Code(s): J18.9 - Pneumonia, unspecified organism Assessment & Plan: Continue with levofloxacin. Check CBC today. Stop IV fluids today as she had at least 4 L in yesterday. Restart bumex and check BNP for possible chf. Code(s): J18.9 - PNEUMONIA, UNSPECIFIED ORGANISM (2) Abdominal pain Current Visit: No Status: Acute Qualifiers: Abdominal location: epigastric Qualified Code(s): R10.13 - Epigastric pain Assessment & Plan: Patient asking to advance diet so will change to her home oral pain medication. Stop IV morphine. Code(s): R10.9 - UNSPECIFIED ABDOMINAL PAIN (3) Diarrhea Current Visit: No Status: Acute Assessment & Plan: C.diff ordered but not collected yet. She is on IV flagyl. Code(s): R19.7 - DIARRHEA, UNSPECIFIED (4) Diabetes type 2, controlled Current Visit: Yes Status: Acute Qualifiers: Diabetes mellitus complication status: without complication Assessment & Plan: Continue current treatment. Code(s): E11.9 - TYPE 2 DIABETES MELLITUS WITHOUT COMPLICATIONS
[2016-10-14] MEDS: BUMEX 1 MG PO SCH (11:28)
[2016-10-14] MEDS: Norco 10/325 MG Tablet PO PRN ×3 (11:41→20:27)
[2016-10-14 12:03] LABS: BASOPHIL % 0.2 % (0.0-0.4); Eosinophil % 7.1 % (0.00-5.0); Granulocytes % 45.7 % (36.0-66.0); Lymphocytes % 36.8 % (24.0-44.0); Mean Corpuscular Hemoglobin 28.4 pg (26-32); Mean Platelet Volume 9.7 fl (6-9.5); Monocytes % 10.2 % (0.0-12.0); Platelet Count 157 K/mm3 (150-450); Red Blood Count 3.45 M/mm3 (4.1-5.4); Red Cell Distribution Width 13.5 % (11.5-14.0); White Blood Count 5.2 K/mm3 (4.0-10.5)
[2016-10-14 12:07] LABS: ANION GAP 8.7 MEQ/L (5-15); BLOOD UREA NITROGEN 2 mg/dL (9-20); CHLORIDE 106 mEq/L (98-107); Carbon Dioxide 31.5 mEq/L (21-32); Glucose 106 MG/DL (70-110); Potassium 3.6 mEq/L (3.5-5.1); SODIUM 143 mEq/L (136-145)
[2016-10-14] MEDS: PROVENTIL 2.5 MG/3 ML NEB IH PRN (13:00)
[2016-10-14] MEDS ORDERED: Lasix 40 MG/4 ML IV ONE (15:25)
[2016-10-14] MEDS: NICODERM CQ 14 MG TOP SCH (21:42)
[2016-10-14] MEDS: Desyrel 150 MG PO SCH (21:43)
[2016-10-14] MEDS: ZOCOR 20MG PO SCH (21:43)
[2016-10-14] MEDS: Cardizem CD 120 MG PO SCH (21:43)
--- NOTE | 2016-10-14 22:12 | XRAY ---
Indication: Short of breath. Elevated d-dimer. Multiple contiguous axial images obtained through the chest using 80 cc Isovue 370 contrast and PE protocol. Comparison: October 29, 2015. There is satisfactory opacification of the pulmonary arteries to include the lobar and segmental branches. No filling defect or pulmonary embolus. Heart is not enlarged. Aorta is normal in course and caliber. No pathologic mediastinal/hilar lymphadenopathy. Examination of the lung parenchyma demonstrates new right middle, lingular, and both lower lobe patchy airspace consolidations. Also new minimal biapical hazy airspace opacities and tiny bibasilar effusion. Bony thorax intact. Limited upper abdomen demonstrates fatty liver and 13 cm splenomegaly. Impression: 1. Negative for pulmonary embolus. 2. New bilateral airspace disease with tiny effusions. 3. Incidental fatty liver and splenomegaly. Comment: Preliminary interpretation was made by [facility]. No critical discrepancy. CTDI 23.25
[2016-10-15] MEDS: Norco 10/325 MG Tablet PO PRN ×4 (00:38→16:36)
[2016-10-15] MEDS: FLAGYL 500 MG IVPB 100 ML IV SCH ×2 (00:38→06:36)
[2016-10-15 06:17] LABS: ANION GAP 7.8 MEQ/L (5-15); BLOOD UREA NITROGEN 4 mg/dL (9-20); CHLORIDE 104 mEq/L (98-107); Carbon Dioxide 35.2 mEq/L (21-32); Glucose 116 MG/DL (70-110); Potassium 3.3 mEq/L (3.5-5.1); SODIUM 144 mEq/L (136-145)
[2016-10-15] MEDS: Carafate 1 GM PO SCH ×4 (06:36→21:28)
[2016-10-15] MEDS: SYNTHROID 100 MCG PO SCH (09:44)
[2016-10-15] MEDS: KEPPRA 500 MG PO SCH ×2 (09:44→21:30)
[2016-10-15] MEDS: Levofloxacin 500MG/100ML D5W 100 ML IV SCH (09:44)
[2016-10-15] MEDS: Protonix 40MG Tablet PO SCH (09:44)
[2016-10-15] MEDS: BUMEX 1 MG PO SCH (09:44)
[2016-10-15] MEDS: lamICTAL 100MG TABLET PO SCH ×2 (09:44→21:29)
[2016-10-15] MEDS: Neurontin 400 MG PO SCH ×4 (09:44→21:28)
[2016-10-15] MEDS: PLAVIX 75 MG Tablet PO SCH (09:44)
[2016-10-15] MEDS: Flonase NASAL NS SCH (09:45)
[2016-10-15] MEDS: FOLATE 1 MG PO SCH ×2 (09:45→21:29)
[2016-10-15] MEDS: Lidoderm Patch 5% TOP SCH (09:53)
[2016-10-15] MEDS: Lantus Insulin SQ SCH (09:53)
[2016-10-15] MEDS ORDERED: Klor Con 10 MEQ PO ONE (10:54)
--- NOTE | 2016-10-15 11:01 | PCM.NOTE ---
Date and Time: 10/15/16 1055 Subjective Assessment: She reports she continues to feel bad. She has one stool recorded but states she continues to have diarrhea. She states they have not been able to wear her oxygen saturation down. She had good output with the lasix yesterday. she reports she continues to have abdominal pain. She reports Dr. Armando is her heart doctor and she reports a history of both A. fib and V. Fib. - Review of Systems Constitutional: Fatigue Eyes: No Symptoms Ears, Nose, & Throat: No Symptoms Respiratory: Cough, Short Of Breath Cardiac: No Symptoms Abdominal/Gastrointestinal: Abdominal Pain, Diarrhea, No Nausea, No Vomiting, No Constipation Genitourinary Symptoms: No Symptoms Musculoskeletal: Back Pain Skin: No Symptoms Psychological: Depression Objective Exam General Appearance: no apparent distress, other (FAMILY member at bedside) Neurologic Exam: alert, cooperative, other (depressed) Skin Exam: normal color, warm, dry, No rash Respiratory Exam: normal breath sounds, lungs clear, No crackles/rales, No rhonchi, No wheezing Cardiovascular Exam: regular rate/rhythm, normal heart sounds, No murmur, No friction rub, No gallop Gastrointestinal/Abdomen Exam: soft, normal bowel sounds, tenderness, No distention, No mass, No guarding Extremity Exam: other (no c/c/e) OBJECTIVE DATA Vital Signs: Vital Signs - 24 hr Temp Pulse Resp BP Pulse Ox 10/15/16 07:00 97.8 F 72 17 100/58 93 L 10/15/16 03:00 98.1 F 76 16 97/52 95 10/14/16 23:00 97.7 F 69 16 91/52 94 L 10/14/16 20:54 73 16 94 L 10/14/16 19:00 97.9 F 68 15 99/59 95 10/14/16 15:00 98.1 F 71 18 91/56 93 L 10/14/16 13:00 74 16 96 10/14/16 11:00 98.4 F 71 15 102/59 96 Oxygen-Last 24 hours O2 Percentage 2 Liters = 28% O2 Percentage 2 Liters = 28% O2 Percentage 2 Liters = 28% O2 Percentage 2 Liters = 28% O2 Percentage 2 Liters = 28% O2 Percentage 2 Liters = 28% Pain Assessment - Last Documented Pain Intensity 10 Pain Scale Used 0-10 Pain Scale Intake and Output: Intake & Output 10/13/16 10/14/16 10/15/16 10/16/16 06:59 06:59 06:59 06:59 Intake Total 1717 5240 2500 480 Output Total 1250 4900 Balance 467 5240 -2400 480 Weight 100.471 kg 100.017 kg 97.114 kg Lab Results: Accuchecks Date 10/15/16 Date 10/14/16 Date 10/14/16 Date 10/14/16 Time 07:00 Time 22:00 Time 16:30 Accucheck Value: 116 Accucheck Value: 129 Accucheck Value: 124 Accucheck Value: 111 Lab Results-Last 24 Hours 10/14/16 10/14/16 10/14/16 Range/Units 11:37 11:37 11:37 WBC 5.2 (4.0-10.5) K/mm3 RBC 3.45 L (4.1-5.4) M/mm3 Hgb 9.8 L (12.0-16.0) gm/dl Hct 30.7 L (35-47) % MCV 89.0 (78-100) fl MCH 28.4 (26-32) pg MCHC 31.9 L (32-36) g/dl RDW 13.5 (11.5-14.0) % Plt Count 157 (150-450) K/mm3 MPV 9.7 H (6-9.5) fl Gran % 45.7 (36.0-66.0) % Lymphocytes % 36.8 (24.0-44.0) % Monocytes % 10.2 (0.0-12.0) % Eosinophils % 7.1 H (0.00-5.0) % Basophils % 0.2 (0.0-0.4) % Basophils # 0.01 (0-0.4) D-Dimer (0.00-0.49) mg/L Sodium 143 (136-145) mEq/L Potassium 3.6 (3.5-5.1) mEq/L Chloride 106 (98-107) mEq/L Carbon Dioxide 31.5 (21-32) mEq/L Anion Gap 8.7 (5-15) MEQ/L BUN 2 L (9-20) mg/dL Creatinine 0.66 (0.55-1.30) mg/dl Estimated GFR > 60 ML/MIN Glucose 106 (70-110) MG/DL Calcium 8.7 (8.5-10.1) mg/dL Iron (50-175) ug/dl TIBC (250-450) ug/dl Iron Saturation (20-39) % NT-Pro-B Natriuret Pep 481 H (0-125) pg/ml Stl C. diff Tox B Gene (NEGATIVE) C.difficile 027-NAP1-B1 (NEGATIVE) 10/14/16 10/14/16 10/14/16 Range/Units 11:37 11:37 22:30 WBC (4.0-10.5) K/mm3 RBC (4.1-5.4) M/mm3 Hgb (12.0-16.0) gm/dl Hct (35-47) % MCV (78-100) fl MCH (26-32) pg MCHC (32-36) g/dl RDW (11.5-14.0) % Plt Count (150-450) K/mm3 MPV (6-9.5) fl Gran % (36.0-66.0) % Lymphocytes % (24.0-44.0) % Monocytes % (0.0-12.0) % Eosinophils % (0.00-5.0) % Basophils % (0.0-0.4) % Basophils # (0-0.4) D-Dimer 1.103 H* (0.00-0.49) mg/L Sodium (136-145) mEq/L Potassium (3.5-5.1) mEq/L Chloride (98-107) mEq/L Carbon Dioxide (21-32) mEq/L Anion Gap (5-15) MEQ/L BUN (9-20) mg/dL Creatinine (0.55-1.30) mg/dl Estimated GFR ML/MIN Glucose (70-110) MG/DL Calcium (8.5-10.1) mg/dL Iron 54 (50-175) ug/dl TIBC 256 (250-450) ug/dl Iron Saturation 21.1 (20-39) % NT-Pro-B Natriuret Pep (0-125) pg/ml Stl C. diff Tox B Gene NEGATIVE (NEGATIVE) C.difficile 027-NAP1-B1 PRESUMPTIVE NEGATIVE (NEGATIVE) 10/15/16 Range/Units 05:24 WBC (4.0-10.5) K/mm3 RBC (4.1-5.4) M/mm3 Hgb (12.0-16.0) gm/dl Hct (35-47) % MCV (78-100) fl MCH (26-32) pg MCHC (32-36) g/dl RDW (11.5-14.0) % Plt Count (150-450) K/mm3 MPV (6-9.5) fl Gran % (36.0-66.0) % Lymphocytes % (24.0-44.0) % Monocytes % (0.0-12.0) % Eosinophils % (0.00-5.0) % Basophils % (0.0-0.4) % Basophils # (0-0.4) D-Dimer (0.00-0.49) mg/L Sodium 144 (136-145) mEq/L Potassium 3.3 L (3.5-5.1) mEq/L Chloride 104 (98-107) mEq/L Carbon Dioxide 35.2 H (21-32) mEq/L Anion Gap 7.8 (5-15) MEQ/L BUN 4 L (9-20) mg/dL Creatinine 0.78 (0.55-1.30) mg/dl Estimated GFR > 60 ML/MIN Glucose 116 H (70-110) MG/DL Calcium 9.0 (8.5-10.1) mg/dL Iron (50-175) ug/dl TIBC (250-450) ug/dl Iron Saturation (20-39) % NT-Pro-B Natriuret Pep (0-125) pg/ml Stl C. diff Tox B Gene (NEGATIVE) C.difficile 027-NAP1-B1 (NEGATIVE) Radiology Exams: Radiology Procedures Category Date Time Status CHEST WITH CONTRAST [CT] Stat Exams 10/14/16 12:36 Completed Multi-Disciplinary Progress Notes: Multi-Disciplinary Progress Notes 10/14/16 14:03 Case Management Note by Mis Hebert DISCHARGE NEEDS REVIEWED. NO CHANGES. LIVES WITH FAMILY. PLAN TO GO HOME TO PRE EPISODIC LEVEL OF FUNCTION. ATTEMPTING TO USE HOME PAIN MEDICATION, PO AT THIS TIME. WILL CONTINUE TO MONITOR FOR ALL D/C NEEDS Initialized on 10/14/16 14:03 - END OF NOTE Assessment/Plan (1) Bilateral pneumonia Current Visit: Yes Status: Acute Qualifiers: Pneumonia type: due to unspecified organism Lung location: lower lobe of lung Qualified Code(s): J18.9 - Pneumonia, unspecified organism Assessment & Plan: Continue levofloxacin. D-dimer positive yesterday so chest CT was ordered. It revealed bilat infiltrates and edema. She was given lasix 40 mg IV once and had about 4,900 mL out and a 3 kg decrease in her weight. I have also restarted her home budesonide and discontinued her IV fluids. Code(s): J18.9 - PNEUMONIA, UNSPECIFIED ORGANISM (2) Abdominal pain Current Visit: No Status: Acute Qualifiers: Abdominal location: epigastric Qualified Code(s): R10.13 - Epigastric pain Assessment & Plan: Continued abdominal pain with negative work up so far. She is now on her home dose of [place] that she states is prescribed by someone in [place]. Will continue with this. Code(s): R10.9 - UNSPECIFIED ABDOMINAL PAIN (3) Diarrhea Current Visit: No Status: Acute Assessment & Plan: C.diff neg, stop flagyl. Code(s): R19.7 - DIARRHEA, UNSPECIFIED (4) Diabetes type 2, controlled Current Visit: Yes Status: Acute Qualifiers: Diabetes mellitus complication status: without complication Code(s): E11.9 - TYPE 2 DIABETES MELLITUS WITHOUT COMPLICATIONS
[2016-10-15] MEDS: Valium 5 MG PO PRN (11:16)
[2016-10-15] MEDS: MAG-OX 400 PO SCH (12:39)
[2016-10-15] MEDS ORDERED: ZOFRAN ODT 4 MG PO PRN (16:43)
[2016-10-15] MEDS: NICODERM CQ 14 MG TOP SCH (21:26)
[2016-10-15] MEDS: ZOCOR 20MG PO SCH (21:27)
[2016-10-15] MEDS: Desyrel 150 MG PO SCH (21:29)
[2016-10-15] MEDS: Cardizem CD 120 MG PO SCH (21:29)
[2016-10-16] MEDS: Norco 10/325 MG Tablet PO PRN ×2 (00:42→07:56)
[2016-10-16] MEDS: Carafate 1 GM PO SCH ×2 (07:31→11:36)
--- NOTE | 2016-10-16 08:17 | PCM.DS ---
Discharge Summary Date of Admission: 10/12/16 09:17 Admitting Physician: ERICA BROCK Primary Care Provider: ERICA BROCK Allergies Allergies aspirin Allergy (Mild, Verified 10/09/16 18:25) codeine [Codeine] Allergy (Mild, Verified 10/09/16 18:25) fluoxetine HCl [From Prozac] Allergy (Mild, Verified 10/09/16 18:25) Penicillins Allergy (Mild, Verified 10/09/16 18:25) promethazine HCl [From Phenergan] Allergy (Mild, Verified 10/09/16 18:25) doxycycline hyclate [From Vibra-Tabs] Adverse Reaction (Verified 10/09/16 18:25) steroid from breathing treatment Allergy (Uncoded 10/06/16 21:27) Hospital Summary - Hospital Course Hospital Course: Pt admitted with abdominal pain, workup was negative including ultrasound, HIDA scan, EGD, and CT abd/pelvis with IV and po contrast. During her stay she started having elevated temperature to 100.3 and was found to have bilateral lower lobe pneumonia - was on levaquin and flagyl for question of previous colitis. She started having diarrhea but c. diff was negative. Her pain medicine was changed from IV morphine initially to po percocet, which made her sick, then to po norco. She is c/o back pain this morning, states she has had it for a couple of days. Still on O2 per [place], but she passed her home O2 eval yesterday (did not qualify for oxygen). Tolerating po. - Vitals & Intake/Output Vital Signs: Vital Signs Temperature 98 F 10/16/16 07:00 Pulse Rate 69 10/16/16 07:00 Respiratory Rate 17 10/16/16 07:00 Blood Pressure 100/60 10/16/16 07:00 O2 Sat by Pulse Oximetry 95 10/16/16 07:00 Oxygen-Last Documented O2 Percentage 2 Liters = 28% Intake & Output: Intake & Output 10/13/16 10/14/16 10/15/16 10/16/16 11:59 11:59 11:59 11:59 Intake Total 1937 5460 2540 1600 Output Total 1250 4900 Balance 687 5460 -2360 1600 Weight 100.471 kg 100.017 kg 97.114 kg 50.349 kg - Lab Result Diagrams: 10/14/16 11:37 10/15/16 05:24 Lab Results-Last 24 Hrs: Accuchecks Date 10/15/16 Time 22:00 Accucheck Value: 87 Accucheck Value: 98 Accucheck Value: 85 Lab Results-Last 24 Hours 10/14/16 10/15/16 Range/Units 11:37 04:00 Magnesium 1.7 L (1.8-2.4) mg/dL Vitamin D 25-Hydroxy 24 L (30-80) ng/mL Micro Results-Entire Visit: Microbiology 10/12/16 Unknown - Final Urine, Void MIXED GOPAL; 3 OR MORE TYPES. NO PREDOMINANT ORGANISM. NO FURTHER WORKUP. PLEASE RESUBMIT IF CLINICALLY INDICATED. 10/12/16 09:32 Blood Culture - Preliminary Blood NO GROWTH TO DATE 10/12/16 09:35 Blood Culture - Preliminary Blood NO GROWTH TO DATE Accuchecks Date 10/15/16 Time 22:00 Accucheck Value: 87 Accucheck Value: 98 Accucheck Value: 85 - Radiology Exams Ordered Rad Exams-Entire Visit: Radiology Procedures Category Date Time Status CHEST WITH CONTRAST [CT] Stat Exams 10/14/16 12:36 Completed - Procedures and Test Procedures and Tests throughout Hospitalization: Therapy Orders & Screens 10/12/16 10:35 Oxygen NASAL CANNULA 2 lpm Comment: Diagnosis: acute pain, N/V 10/15/16 11:04 Qualify for Home Oxygen ROUTINE Comment: Diagnosis: BILATERAL PNEUMONIA, HOSPITAL AQUIRED, PERSISTENT ABDOMINAL PAIN Discharge Exam General Appearance: no apparent distress Neurologic Exam: alert, oriented x 3, cooperative Skin Exam: normal color, warm, dry Respiratory Exam: normal breath sounds, lungs clear, No crackles/rales, No rhonchi, No wheezing Cardiovascular Exam: regular rate/rhythm, normal heart sounds, No murmur Gastrointestinal/Abdomen Exam: soft, No tenderness, No distention, No mass, No guarding, No rebound Extremity Exam: No pedal edema, No swelling Back Exam: normal inspection Final Diagnosis/Problem List - Final Discharge Diagnosis/Problem (1) Bilateral pneumonia Current Visit: Yes Status: Acute Assessment & Plan: On IV levaquin; will send her home on po antibiotics. she states she can't tolerate this antibiotic po. If she cannot tolerate the omnicef, she will call the office and will change her antibiotic. If she qualifies for home O2, OK to send her home on same. (2) Abdominal pain Current Visit: No Status: Resolved Assessment & Plan: no complaints this morning. (3) Hypokalemia Current Visit: Yes Status: Resolved Assessment & Plan: will recheck before sending her home. (4) Nausea and vomiting Current Visit: Yes Status: Resolved (5) Diabetes Current Visit: No Status: Chronic (6) Diarrhea Current Visit: No Status: Resolved - Discharge Disposition: Home, Self-Care Condition: Fair Prescriptions: New Magnesium Oxide 400 mg [Mag-Ox 400] 400 mg PO DAILY #30 tablet Hydrocodone/APAP 10/325 mg [[place] 10/325 MG Tablet] 1 tab PO Q4H PRN PRN #0 tablet PRN Reason: Pain Cefdinir [Omnicef] 300 mg PO BID #14 capsule Continue Gabapentin [Neurontin] 1,600 mg PO QID Simvastatin [Zocor] 20 mg PO HS Levothyroxine Sodium 100 Mcg [Synthroid 100 Mcg] 100 mcg PO QAM Diltiazem HCl [Cartia Xt] 180 mg PO QPM Clopidogrel Bisulfate 75 mg [PLAVIX 75 MG Tablet] 75 mg PO DAILY Cyclobenzaprine HCl 10 mg [Cyclobenzaprine 10 MG] 10 mg PO BID Insulin Detemir [Levemir Flexpen] 7 unit SQ QAM Lamotrigine 100 mg [lamICTAL 100MG TABLET] 200 mg PO BID Tramadol HCl 50 mg [Ultram 50 mg] 50 mg PO Q6HPRN PRN PRN Reason: Pain Bumetanide 1 mg [Bumex 1 mg] 1 mg PO DAILY #30 tablet Diazepam 5 mg [Valium 5 MG] 5 mg PO TID Hydrocodone Bit/Acetaminophen [Hydrocodon-Acetaminophn 10-325] 1 tab PO Q4HPRN PRN PRN Reason: Pain Trazodone HCl [Oleptro ER] 150 mg PO HS Omeprazole 20 MG [Prilosec 20 mg] 20 mg PO DAILY Triamcinolone Acetonide [Nasacort] 2 sprays IH DAILY Naproxen 500 mg PO BID Lidocaine HCl 5% Patch [Lidoderm Patch 5%] 1 applic TD DAILY Estrogens,Esterified [Menest] 1 tab PO UD Levetiracetam [Keppra 500 mg ] 500 mg PO BID #60 tablet Pyridoxine HCl 100 mg [Vitamin B-6 (Pyridoxine) 100 MG] 100 mg PO DAILY Folic Acid 1 mg PO BID Dulaglutide [Trulicity] 0.75 mg SQ WEEKLY Cyanocobalamin (Vitamin B-12) [Vitamin B12] 2,500 mcg PO DAILY Sucralfate 1 gm [Carafate 1 GM] 1 g PO ACHS #28 tablet Follow up with: ERICA BROCK [Primary Care Provider] -
[2016-10-16 08:26] LABS: BASOPHIL % 0.4 % (0.0-0.4); Eosinophil % 8.8 % (0.00-5.0); Lymphocytes % 41.1 % (24.0-44.0); Mean Cell Volume 88.2 fl (78-100); Mean Platelet Volume 10.2 fl (6-9.5); Monocytes % 7.7 % (0.0-12.0); Platelet Count 186 K/mm3 (150-450); Red Blood Count 4.08 M/mm3 (4.1-5.4); Red Cell Distribution Width 13.5 % (11.5-14.0); White Blood Count 4.5 K/mm3 (4.0-10.5)
[2016-10-16 08:32] LABS: Mean Corpuscular Hemoglobin 27.6 pg (26-32)
[2016-10-16 09:04] LABS: ANION GAP 5.2 MEQ/L (5-15); BLOOD UREA NITROGEN 4 mg/dL (9-20); CHLORIDE 104 mEq/L (98-107); Carbon Dioxide 35.4 mEq/L (21-32); Glucose 123 MG/DL (70-110); Potassium 3.7 mEq/L (3.5-5.1); SODIUM 141 mEq/L (136-145)
[2016-10-16] MEDS ORDERED: Levofloxacin 250MG Tablet PO SCH (10:00)
[2016-10-16] MEDS: SYNTHROID 100 MCG PO SCH (10:56)
[2016-10-16] MEDS: FOLATE 1 MG PO SCH (10:56)
[2016-10-16] MEDS: KEPPRA 500 MG PO SCH (10:56)
[2016-10-16] MEDS: PLAVIX 75 MG Tablet PO SCH (10:56)
[2016-10-16] MEDS: lamICTAL 100MG TABLET PO SCH (10:57)
[2016-10-16] MEDS: Protonix 40MG Tablet PO SCH (10:57)
[2016-10-16] MEDS: BUMEX 1 MG PO SCH (10:57)
[2016-10-16] MEDS: Neurontin 400 MG PO SCH ×2 (10:57→13:23)
[2016-10-16] MEDS: Lidoderm Patch 5% TOP SCH (10:57)
[2016-10-16] MEDS: MAG-OX 400 PO SCH (10:57)
[2016-10-16] MEDS: Flonase NASAL NS SCH (10:58)
[2016-10-16] MEDS: Lantus Insulin SQ SCH (10:58)
--- NOTE | 2016-10-16 13:50 | PCM.DCORD ---
- Discharge Disposition: Home, Self-Care Condition: Fair Prescriptions: New Magnesium Oxide 400 mg [Mag-Ox 400] 400 mg PO DAILY #30 tablet Hydrocodone/APAP 10/325 mg [[place] 10/325 MG Tablet] 1 tab PO Q4H PRN PRN #0 tablet PRN Reason: Pain Cefdinir [Omnicef] 300 mg PO BID #14 capsule Continue Gabapentin [Neurontin] 1,600 mg PO QID Simvastatin [Zocor] 20 mg PO HS Levothyroxine Sodium 100 Mcg [Synthroid 100 Mcg] 100 mcg PO QAM Diltiazem HCl [Cartia Xt] 180 mg PO QPM Clopidogrel Bisulfate 75 mg [PLAVIX 75 MG Tablet] 75 mg PO DAILY Cyclobenzaprine HCl 10 mg [Cyclobenzaprine 10 MG] 10 mg PO BID Insulin Detemir [Levemir Flexpen] 7 unit SQ QAM Lamotrigine 100 mg [lamICTAL 100MG TABLET] 200 mg PO BID Tramadol HCl 50 mg [Ultram 50 mg] 50 mg PO Q6HPRN PRN PRN Reason: Pain Bumetanide 1 mg [Bumex 1 mg] 1 mg PO DAILY #30 tablet Diazepam 5 mg [Valium 5 MG] 5 mg PO TID Hydrocodone Bit/Acetaminophen [Hydrocodon-Acetaminophn 10-325] 1 tab PO Q4HPRN PRN PRN Reason: Pain Trazodone HCl [Oleptro ER] 150 mg PO HS Omeprazole 20 MG [Prilosec 20 mg] 20 mg PO DAILY Triamcinolone Acetonide [Nasacort] 2 sprays IH DAILY Naproxen 500 mg PO BID Lidocaine HCl 5% Patch [Lidoderm Patch 5%] 1 applic TD DAILY Estrogens,Esterified [Menest] 1 tab PO UD Levetiracetam [Keppra 500 mg ] 500 mg PO BID #60 tablet Pyridoxine HCl 100 mg [Vitamin B-6 (Pyridoxine) 100 MG] 100 mg PO DAILY Folic Acid 1 mg PO BID Dulaglutide [Trulicity] 0.75 mg SQ WEEKLY Cyanocobalamin (Vitamin B-12) [Vitamin B12] 2,500 mcg PO DAILY Sucralfate 1 gm [Carafate 1 GM] 1 g PO ACHS #28 tablet Instructions: Pneumonia -- Adult, Abdominal Pain-Adult, Hypokalemia, Perform Oxygen Therapy via Cannula, Quit Smoking Additional Instructions: [facility] will set up your night time oxygen once you are home, please call . Follow up with: ERICA BROCK [Primary Care Provider] - 10/24/16 9:00 am
[2016-10-16 15:21] VITALS: BP 90/55; PULSE 72; O2SAT 91
== END 2016-10-16 16:30 | disposition home or self-care (01) | DRG 195 ==
LOC: ED 18:11 → MED SURG 20:30 → OBSVTOIN 10-12 09:17
PROVIDERS: ADMIT Family Medicine; ATTEND Family Medicine
PROC: 0DJ08ZZ Inspection of Upper Intestinal Tract, Via Natural or Artificial Opening Endoscopic (ICD-10-PCS; principal; 2016-10-11)
DX: J18.9 Pneumonia, unspecified organism (principal); R10.9 Unspecified abdominal pain; E87.6 Hypokalemia; E11.9 Type 2 diabetes mellitus without complications; Z79.4 Long term (current) use of insulin; M79.7 Fibromyalgia; G62.9 Polyneuropathy, unspecified; F41.8 Other specified anxiety disorders; K21.9 Gastro-esophageal reflux disease without esophagitis; I10 Essential (primary) hypertension; F31.9 Bipolar disorder, unspecified; I48.91 Unspecified atrial fibrillation; Z79.899 Other long term (current) drug therapy; Z72.0 Tobacco use
CPT/HCPCS: 00740; 36000; 36415; 71260; 74020; 74178; 76705; 78227; 80048; 80053; 81002; 82150; 82306; 82962; 83540; 83550; 83690; 83735; 83880; 85025; 85379; 87040; 87086; 87493; 94640; 94760; 96360; 99285; A9537; G0378; J1940; J1956; J2270; J2405; J2704; J2805; Q0162; A9270-GY

== ENCOUNTER 2016-10-25 14:03 | Emergency (ER) | payer OTHER ==
[2016-10-25 14:11] VITALS: O2SAT 96
--- NOTE | 2016-10-25 14:28 | ERPHSYRPT ---
- History of Present Illness Time Seen by Provider: 10/25/16 14:24 Source: patient, EMS Patient Subjective Stated Complaint: pt states she got into an argument with Daughter at home and took off walking. pt states she does not remember walking. ems states pt walked to fire department and ems was called. Triage Nursing Assessment: pt pink, warm, dry. pt alert and oriented x3. pupils perrl. Physician History: The patient is a 40-year-old female brought in by ambulance. EMS crew states that the patient got into an argument with her daughter at home and began walking. The patient walked to the fire department and the ambulance was called. The patient states she doesn't remember walking. My interview with the patient is different. The patient states that she said vomiting and diarrhea for 2 days. She can't keep anything down. Today she gets a new set her sister has stage III breast cancer and was very sad. The patient told her friend that she was having a hard time breathing. She doesn't remember anything until waking up in the ambulance on the way to the hospital. Now she says she hurts all over. She is sad. Recent hospitalization for pneumonia, diabetes, pseudoseizure, diabetic neuropathy, and TIA. The patient's brother arrives and provides more history of the incident. He states that the patient requires constant supplemental oxygen and today after hearing the news of her sister who lives in [place], the patient removed her oxygen. She walked out of the house without it and they found her in town. She was at the water office and when the ambulance got there, they applied oxygen to her. Witnessed: other Prior Episodes: single episode today Timing/Duration: today Precipitating Factors: unknown Context: emotional stress Loss of Consciousness: unsure Charcter of event(s): almost passed out Allergies/Adverse Reactions: aspirin Allergy (Mild, Verified 10/25/16 14:12) codeine [Codeine] Allergy (Mild, Verified 10/25/16 14:12) fluoxetine HCl [From Prozac] Allergy (Mild, Verified 10/25/16 14:12) Penicillins Allergy (Mild, Verified 10/25/16 14:12) promethazine HCl [From Phenergan] Allergy (Mild, Verified 10/25/16 14:12) doxycycline hyclate [From Vibra-Tabs] Adverse Reaction (Verified 10/25/16 14:12) steroid from breathing treatment Allergy (Uncoded 10/25/16 14:12) Home Medications: Gabapentin [Neurontin] 1,600 mg PO QID 07/10/13 [History] Diltiazem HCl [Cartia Xt] 180 mg PO QPM 09/27/14 [History] Levothyroxine Sodium 100 Mcg [Synthroid 100 Mcg] 100 mcg PO QAM 09/27/14 [ History] Simvastatin [Zocor] 20 mg PO HS 09/27/14 [History] Clopidogrel Bisulfate 75 mg [PLAVIX 75 MG Tablet] 75 mg PO DAILY 04/05/15 [History] Cyclobenzaprine HCl 10 mg [Cyclobenzaprine 10 MG] 10 mg PO BID 07/16/15 [ History] Insulin Detemir [Levemir Flexpen] 7 unit SQ QAM 09/27/15 [History] Lamotrigine 100 mg [lamICTAL 100MG TABLET] 200 mg PO BID 09/27/15 [History ] Tramadol HCl 50 mg [Ultram 50 mg] 50 mg PO Q6HPRN PRN 09/27/15 [History] Diazepam 5 mg [Valium 5 MG] 5 mg PO TID 02/14/16 [History] Estrogens,Esterified [Menest] 1 tab PO UD 04/20/16 [History] Hydrocodone Bit/Acetaminophen [Hydrocodon-Acetaminophn 10-325] 1 tab PO Q4HPRN PRN 04/20/16 [History] Lidocaine HCl 5% Patch [Lidoderm Patch 5%] 1 applic TD DAILY 04/20/16 [ History] Naproxen 500 mg PO BID 04/20/16 [History] Omeprazole 20 MG [Prilosec 20 mg] 20 mg PO DAILY 04/20/16 [History] Trazodone HCl [Oleptro ER] 150 mg PO HS 04/20/16 [History] Triamcinolone Acetonide [Nasacort] 2 sprays IH DAILY 04/20/16 [History] Cyanocobalamin (Vitamin B-12) [Vitamin B12] 2,500 mcg PO DAILY 10/09/16 [History ] Dulaglutide [Trulicity] 0.75 mg SQ WEEKLY 10/09/16 [History] Folic Acid 1 mg PO BID 10/09/16 [History] Pyridoxine HCl 100 mg [Vitamin B-6 (Pyridoxine) 100 MG] 100 mg PO DAILY [History] Hx Tetanus, Diphtheria Vaccination/Date Given: Yes (up to date) Hx Influenza Vaccination/Date Given: Yes Hx Pneumococcal Vaccination/Date Given: Yes Immunizations Up to Date: Yes - Past Medical History Pertinent Past Medical History: Yes Neurological History: Epilepsy, Peripheral Neuropathy ENT History: No Pertinent History Cardiac History: Hypertension, Other Respiratory History: Asthma Endocrine Medical History: Diabetes Type I, Hypothyroidism Musculoskeletal History: Other GI Medical History: GERD, Hernia History: No Pertinent History Psycho-Social History: Anxiety, Bipolar, Depression, Panic Disorder Female Reproductive Disorders: Endometriosis Other Medical History: A FIB, MVP W/ REGURGITATION, HTN; HX R KNEE PN\\. home 02 - Past Surgical History Past Surgical History: Yes Neuro Surgical History: No Pertinent History Cardiac: Cardiac Catheterization Respiratory: No Pertinent History Gastrointestinal: Cholecystectomy, Hernia Repair Genitourinary: No Pertinent History Musculoskeletal: Joint Replacement, Orthopedic Surgery Female Surgical History: Hysterectomy Other Surgical History: torn miniscus and implant-RT KNEE" partial scope replacement" - Social History Smoking Status: Former smoker How long have you smoked: 25 Exposure to second hand smoke: Yes Alcohol Use: None Drug Use: none Patient Lives Alone: No Significant Family History: no pertinent family hx, heart disease - Female History Hx Now: No - Review of Systems Constitutional: No Fever, No Chills Eyes: No Symptoms Ears, Nose, & Throat: No Symptoms Respiratory: No Cough, No Dyspnea Cardiac: No Chest Pain, No Edema, No Syncope Abdominal/Gastrointestinal: Nausea, Vomiting, Diarrhea Genitourinary Symptoms: No Dysuria Musculoskeletal: No Back Pain, No Neck Pain Skin: No Rash Neurological: No Dizziness, No Focal Weakness, No Sensory Changes Psychological: Depression, Emotional Lability, Memory Loss Endocrine: No Symptoms Hematologic/Lymphatic: No Symptoms Immunological/Allergic: No Symptoms All Other Systems: Reviewed and Negative Physical Exam - Nursing Vital Signs Nursing Vital Signs: Initial Vital Signs Temperature 97.9 F Temperature Source Oral Pulse Rate 71 Respiratory Rate 18 Blood Pressure [] 130/78 Pain Intensity 7 - [place] Coma Scale Best Eye Response (Denise): (4) open spontaneously Best Verbal Response ([place]): (5) oriented Best Motor Response ([place]): (6) obeys commands Denise Total: 15 - Physical Exam General Appearance: no apparent distress, alert Eye Exam: bilateral eye: normal inspection, PERRL Ears, Nose, Throat Exam: normal ENT inspection, pharynx normal, moist mucous membranes Neck Exam: normal inspection, non-tender, supple, full range of motion Respiratory: normal breath sounds, lungs clear, No chest tenderness, No respiratory distress Cardiovascular: regular rate/rhythm, capillary refill <2 sec, No murmur, No pulse deficit Gastrointestinal: soft, No tenderness, No distention, No mass Pelvic Exam: not done Rectal Exam: not done Back Exam: normal inspection, normal range of motion, No CVA tenderness, No vertebral tenderness Extremity Exam: normal inspection, normal range of motion, pelvis stable, No tenderness 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 Exam: normal hearing Coordination/Gait: normal finger to nose Motor/Sensory: no motor deficit, no sensory deficit, no pronator drift Skin Exam: normal color, warm, dry, No rash SpO2 Interpretation: normal SpO2: 96 Oxygen Delivery: Room Air - Course EKG Interpreted by Me: RATE, NORMAL AXIS, NORMAL INTERVALS, NORMAL QRS, NORMAL ST-T - Radiology Exams Chest X-ray Interpretation: Teleradiologist Report, Other (again right base infiltrate versus atelecstasis per DR Dougherty.) Ordered Tests: Active Orders 24 hr Category Date Time Status Asparagus Buncher STAT Care 10/25/16 14:30 Active EKG-ER Only STAT Care 10/25/16 14:30 Active IV Insertion STAT Care 10/25/16 14:30 Active CHEST 1 VIEW (PORTABLE) Stat Exams 10/25/16 14:31 Completed CBC W DIFF Stat Lab 10/25/16 14:40 Completed CMP Stat Lab 10/25/16 14:40 Completed Ethyl Alcohol,Urine Stat Lab 10/25/16 14:30 Completed TROPONIN Stat Lab 10/25/16 14:40 Completed UA Stat Lab 10/25/16 15:25 Completed Urine Triage Profile Stat Lab 10/25/16 15:20 Completed Medication Summary Discontinued Medications Generic Name Dose Route Start Last Admin Trade Name Freq PRN Reason Stop Dose Admin Sodium Chloride 1,000 mls @ 999 mls/hr 10/25/16 14:30 10/25/16 14:38 Sodium Chloride 0.9% 1000 Ml IV 10/25/16 15:30 999 mls/hr .Q1H1M STA Administration Sodium Chloride Confirm 10/25/16 14:36 Sodium Chloride 0.9% 1000 Ml Administered 10/25/16 14:37 Dose 1,000 mls @ ud .ROUTE .STK-MED ONE Ondansetron HCl 4 mg 10/25/16 14:31 10/25/16 14:38 Zofran 4 Mg/2 Ml Vial IV 10/25/16 14:32 4 mg STAT ONE Administration Ondansetron HCl Confirm 10/25/16 14:36 Zofran 4 Mg/2 Ml Vial Administered 10/25/16 14:37 Dose 4 mg .ROUTE .STK-MED ONE Potassium Chloride 40 meq 10/25/16 15:26 10/25/16 15:37 Klor Con 10 Meq PO 10/25/16 15:27 40 meq STAT ONE Administration Potassium Chloride Confirm 10/25/16 15:36 Klor Con 10 Meq Administered 10/25/16 15:37 Dose 40 meq PO .STK-MED ONE Lab/Rad Data: Laboratory Result Diagrams 10/25/16 14:40 10/25/16 14:40 Laboratory Results 10/25/16 10/25/16 10/25/16 Range/Units 15:25 15:20 14:40 WBC (4.0-10.5) K/mm3 RBC (4.1-5.4) M/mm3 Hgb (12.0-16.0) gm/dl Hct (35-47) % MCV (78-100) fl MCH (26-32) pg MCHC (32-36) g/dl RDW (11.5-14.0) % Plt Count (150-450) K/mm3 MPV (6-9.5) fl Gran % (36.0-66.0) % Lymphocytes % (24.0-44.0) % Monocytes % (0.0-12.0) % Eosinophils % (0.00-5.0) % Basophils % (0.0-0.4) % Basophils # (0-0.4) Sodium (136-145) mEq/L Potassium (3.5-5.1) mEq/L Chloride (98-107) mEq/L Carbon Dioxide (21-32) mEq/L Anion Gap (5-15) MEQ/L BUN (9-20) mg/dL Creatinine (0.55-1.30) mg/dl Estimated GFR ML/MIN Glucose (70-110) MG/DL Calcium (8.5-10.1) mg/dL Total Bilirubin (0.2-1.0) mg/dL AST (15-37) U/L ALT (12-78) U/L Alkaline Phosphatase (46-116) U/L Troponin I < 0.017 (0.000-0.056) ng/ml Serum Total Protein (6.4-8.2) gm/dL Albumin (3.4-5.0) g/dL Ur Collection Type CCMS Urine Color YELLOW (YELLOW) Urine Appearance CLEAR (CLEAR) Ur Specific [place] <=1.005 (1.005-1.025) Urine Protein NEGATIVE (Negative) Urine Glucose (UA) NEGATIVE (NEGATIVE) mg/dL Urine Ketones NEGATIVE (NEGATIVE) Urine Nitrite NEGATIVE (NEGATIVE) Urine Bilirubin NEGATIVE (NEGATIVE) Urine Urobilinogen 0.2 (0-1) mg/dL Urine WBC (Auto) NEGATIVE (NEGATIVE) Urine RBC (Auto) NEGATIVE (0-5) Laurent/ul Urine Opiates Level NEG. (NEGATIVE) Ur Methadone NEG. (NEGATIVE) Urine Barbiturates NEG. (NEGATIVE) Ur Phencyclidine (PCP) NEG. (NEGATIVE) Urine Amphetamine NEG. (NEGATIVE) U Benzodiazepine Level POS. (NEGATIVE) Urine Cocaine NEG. (NEGATIVE) Urine Marijuana (THC) NEG. (NEGATIVE) Urine pH 6.5 (3-8.5) Urine Ethyl Alcohol (0.00-20) mg/dl Specimen Received 10-25-16 1535 10/25/16 10/25/16 10/25/16 Range/Units 14:40 14:40 14:30 WBC 6.9 (4.0-10.5) K/mm3 RBC 4.50 (4.1-5.4) M/mm3 Hgb 12.5 (12.0-16.0) gm/dl Hct 38.2 (35-47) % MCV 84.9 (78-100) fl MCH 27.8 (26-32) pg MCHC 32.7 (32-36) g/dl RDW 13.4 (11.5-14.0) % Plt Count 190 (150-450) K/mm3 MPV 10.6 H (6-9.5) fl Gran % 57.6 (36.0-66.0) % Lymphocytes % 26.7 (24.0-44.0) % Monocytes % 11.7 (0.0-12.0) % Eosinophils % 3.9 (0.00-5.0) % Basophils % 0.1 (0.0-0.4) % Basophils # 0.01 (0-0.4) Sodium 143 (136-145) mEq/L Potassium 3.1 L (3.5-5.1) mEq/L Chloride 103 (98-107) mEq/L Carbon Dioxide 30.7 (21-32) mEq/L Anion Gap 12.3 (5-15) MEQ/L BUN 7 L (9-20) mg/dL Creatinine 0.95 (0.55-1.30) mg/dl Estimated GFR > 60 ML/MIN Glucose 101 (70-110) MG/DL Calcium 9.7 (8.5-10.1) mg/dL Total Bilirubin 0.50 (0.2-1.0) mg/dL AST 28 (15-37) U/L ALT 35 (12-78) U/L Alkaline Phosphatase 114 (46-116) U/L Troponin I (0.000-0.056) ng/ml Serum Total Protein 7.5 (6.4-8.2) gm/dL Albumin 4.4 (3.4-5.0) g/dL Ur Collection Type Urine Color (YELLOW) Urine Appearance (CLEAR) Ur Specific [place] (1.005-1.025) Urine Protein (Negative) Urine Glucose (UA) (NEGATIVE) mg/dL Urine Ketones (NEGATIVE) Urine Nitrite (NEGATIVE) Urine Bilirubin (NEGATIVE) Urine Urobilinogen (0-1) mg/dL Urine WBC (Auto) (NEGATIVE) Urine RBC (Auto) (0-5) Laurent/ul Urine Opiates Level (NEGATIVE) Ur Methadone (NEGATIVE) Urine Barbiturates (NEGATIVE) Ur Phencyclidine (PCP) (NEGATIVE) Urine Amphetamine (NEGATIVE) U Benzodiazepine Level (NEGATIVE) Urine Cocaine (NEGATIVE) Urine Marijuana (THC) (NEGATIVE) Urine pH 6.5 (3-8.5) Urine Ethyl Alcohol < 3 (0.00-20) mg/dl Specimen Received - Progress Progress: improved Counseled pt/family regarding: lab results, diagnosis, need for follow-up, rad results - Departure Time of Disposition: 15:58 Departure Disposition: Home Clinical Impression: Reaction, situational Condition: Stable Critical Care Time: No Additional Instructions: You had a situational reaction due to the had new she received recently. You also have gastroenteritis which has caused hypo-kalemia. You were treated with IV fluids, Zofran 4 mg IV, and potassium 40 mEq in the ER. Take Zofran 4 mg ODT every 6 hours as needed for nausea and vomiting. Stay well hydrated. Follow-up in one to 2 days. Prescriptions: Ondansetron [Zofran Odt] 4 mg PO Q6HPRN PRN #10 tab.rapdis PRN Reason: Nausea/Vomiting
[2016-10-25] MEDS ORDERED: Sodium Chloride 0.9% 1000 ML 1,000 ML IV STA (14:30)
[2016-10-25] MEDS ORDERED: Zofran 4 MG/2 ML VIAL IV ONE (14:31)
[2016-10-25] MEDS ORDERED: Sodium Chloride 0.9% 1000 ML 1,000 ML ONE (14:36)
[2016-10-25] MEDS ORDERED: Zofran 4 MG/2 ML VIAL ONE (14:36)
[2016-10-25 14:52] LABS: BASOPHIL % 0.1 % (0.0-0.4); Eosinophil % 3.9 % (0.00-5.0); Granulocytes % 57.6 % (36.0-66.0); Lymphocytes % 26.7 % (24.0-44.0); Mean Cell Volume 84.9 fl (78-100); Mean Corpuscular Hemoglobin 27.8 pg (26-32); Mean Platelet Volume 10.6 fl (6-9.5); Monocytes % 11.7 % (0.0-12.0); Platelet Count 190 K/mm3 (150-450); Red Cell Distribution Width 13.4 % (11.5-14.0); White Blood Count 6.9 K/mm3 (4.0-10.5)
--- NOTE | 2016-10-25 15:01 | XRAY ---
Indication: Syncope. Comparison: August 23, 2016. Portable chest again demonstrates right base infiltrate versus atelectasis with right hemidiaphragm elevation. Remaining heart, lungs, and bony thorax normal.
[2016-10-25 15:11] VITALS: PULSE 71
[2016-10-25 15:15] LABS: ALBUMIN 4.4 g/dL (3.4-5.0); ALKALINE PHOSPHATASE 114 U/L (46-116); ANION GAP 12.3 MEQ/L (5-15); BLOOD UREA NITROGEN 7 mg/dL (9-20); CHLORIDE 103 mEq/L (98-107); Carbon Dioxide 30.7 mEq/L (21-32); Glucose 101 MG/DL (70-110); Potassium 3.1 mEq/L (3.5-5.1); SGOT/AST 28 U/L (15-37); SGPT/ALT 35 U/L (12-78); SODIUM 143 mEq/L (136-145); Total Protein 7.5 gm/dL (6.4-8.2)
[2016-10-25 15:21] VITALS: BP 130/78
[2016-10-25] MEDS ORDERED: Klor Con 10 MEQ PO ONE ×2 (15:26→15:36)
[2016-10-25 15:30] LABS: COMPLETE URINE MICROSCOPIC? NO; Collection Type CCMS; Ph 6.5 (5-6)
== END 2016-10-25 16:05 | disposition home or self-care (01) ==
LOC: ED 14:03
DX: F43.20 Adjustment disorder, unspecified (principal); E87.6 Hypokalemia; R11.2 Nausea with vomiting, unspecified; Z99.81 Dependence on supplemental oxygen; Z79.899 Other long term (current) drug therapy; I10 Essential (primary) hypertension; E10.9 Type 1 diabetes mellitus without complications
CPT/HCPCS: 36000; 36415; 71010; 80053; 80307; 80320; 81002; 83986; 84484; 85025; 93005; 93041; 96360; 96361; 96374; 99284; J2405; A9270-GY

== ENCOUNTER 2016-12-21 12:21 | Inpatient (IN) | payer OTHER ==
[2016-12-21] MEDS ORDERED: NITRO-BID 2% UD PACKETS TOP ONE (12:33)
[2016-12-21] MEDS ORDERED: Zofran 4 MG/2 ML VIAL IV ONE (12:37)
--- NOTE | 2016-12-21 12:43 | ERPHSYRPT ---
- History of Present Illness Time Seen by Provider: 12/21/16 12:24 Historian: patient, family, old records Exam Limitations: no limitations Physician History: patient referred from the office for CP workup and probable admission; patient having CP off and on for a week; seen last weekend at [facility]; on home O2 for MVP wiht regurg by hx; CP increased since last night; now constant at rest 10/10; left anterior chest; radiates to back associated with nausea, diaphoresis and increased SOB with heaviness exacerbated by exertion; no [id number] '; no recent exposures Timing/Duration: today (increased at rest), yesterday (got worse last night with exertion), week(s) (onset), intermittent (until today), worse Activities at Onset: activity Quality: fullness Location: substernal (left) Chest Pain Radiation: back Severity of Pain-Max: severe Severity of Pain-Current: severe Modifying Factors: Improves With: exertion (worse), oxygen (helps) Associated Symptoms: nausea, shortness of breath, fever (?) Prior Chest Pain/Cardiac Workup: cardiac cath, pulmonary embolism, recently seen /treated Nitro Today/Relief: no nitro taken today, provided by ED Aspirin Treatment Today: no aspirin today (allergic) Allergies/Adverse Reactions: aspirin Allergy (Mild, Verified 10/25/16 14:12) codeine [Codeine] Allergy (Mild, Verified 10/25/16 14:12) fluoxetine HCl [From Prozac] Allergy (Mild, Verified 10/25/16 14:12) Penicillins Allergy (Mild, Verified 10/25/16 14:12) promethazine HCl [From Phenergan] Allergy (Mild, Verified 10/25/16 14:12) doxycycline hyclate [From Vibra-Tabs] Adverse Reaction (Verified 10/25/16 14:12) steroid from breathing treatment Allergy (Uncoded 10/25/16 14:12) Home Medications: Gabapentin [Neurontin] 1,600 mg PO QID 07/10/13 [History] Diltiazem HCl [Cartia Xt] 180 mg PO QPM 09/27/14 [History] Levothyroxine Sodium 100 Mcg [Synthroid 100 Mcg] 100 mcg PO QAM 09/27/14 [ History] Simvastatin [Zocor] 20 mg PO HS 09/27/14 [History] Clopidogrel Bisulfate 75 mg [PLAVIX 75 MG Tablet] 75 mg PO DAILY 04/05/15 [History] Cyclobenzaprine HCl 10 mg [Cyclobenzaprine 10 MG] 10 mg PO BID 07/16/15 [ History] Insulin Detemir [Levemir Flexpen] 7 unit SQ QAM 09/27/15 [History] Lamotrigine 100 mg [lamICTAL 100MG TABLET] 200 mg PO BID 09/27/15 [History ] Tramadol HCl 50 mg [Ultram 50 mg] 50 mg PO Q6HPRN PRN 09/27/15 [History] Diazepam 5 mg [Valium 5 MG] 5 mg PO TID 02/14/16 [History] Estrogens,Esterified [Menest] 1 tab PO UD 04/20/16 [History] Hydrocodone Bit/Acetaminophen [Hydrocodon-Acetaminophn 10-325] 1 tab PO Q4HPRN PRN 04/20/16 [History] Lidocaine HCl 5% Patch [Lidoderm Patch 5%] 1 applic TD DAILY 04/20/16 [ History] Naproxen 500 mg PO BID 04/20/16 [History] Omeprazole 20 MG [Prilosec 20 mg] 20 mg PO DAILY 04/20/16 [History] Trazodone HCl [Oleptro ER] 150 mg PO HS 04/20/16 [History] Triamcinolone Acetonide [Nasacort] 2 sprays IH DAILY 04/20/16 [History] Cyanocobalamin (Vitamin B-12) [Vitamin B12] 2,500 mcg PO DAILY 10/09/16 [History ] Dulaglutide [Trulicity] 0.75 mg SQ WEEKLY 10/09/16 [History] Folic Acid 1 mg PO BID 10/09/16 [History] Pyridoxine HCl 100 mg [Vitamin B-6 (Pyridoxine) 100 MG] 100 mg PO DAILY [History] Hx Tetanus, Diphtheria Vaccination/Date Given: Yes (up to date) Hx Influenza Vaccination/Date Given: Yes Hx Pneumococcal Vaccination/Date Given: Yes - Review of Systems Constitutional: No Symptoms Eyes: No Symptoms Ears, Nose, & Throat: No Symptoms Respiratory: Dyspnea, Dyspnea on Exertion (SOARES), No Cough, No Wheezing Cardiac: Chest Pain, No Edema, No Palpitations, No Syncope, No Orthopnea Abdominal/Gastrointestinal: Nausea, Constipation, No Abdominal Pain, No Vomiting , No Diarrhea Genitourinary Symptoms: No Symptoms Musculoskeletal: No Symptoms Skin: No Symptoms Neurological: No Symptoms Psychological: No Symptoms Endocrine: No Symptoms Hematologic/Lymphatic: Blood Clots, Easy Bleeding, Easy Bruising Immunological/Allergic: No Symptoms - Past Medical History Pertinent Past Medical History: Yes Neurological History: Epilepsy, Peripheral Neuropathy ENT History: No Pertinent History Cardiac History: Hypertension, Other Respiratory History: Asthma Endocrine Medical History: Diabetes Type I, Hypothyroidism Musculoskeletal History: Other GI Medical History: GERD, Hernia History: No Pertinent History Psycho-Social History: Anxiety, Bipolar, Depression, Panic Disorder Female Reproductive Disorders: Endometriosis Other Medical History: A FIB, MVP W/ REGURGITATION, HTN; HX R KNEE PN\\. home 02 - Past Surgical History Past Surgical History: Yes Neuro Surgical History: No Pertinent History Cardiac: Cardiac Catheterization Respiratory: No Pertinent History Gastrointestinal: Cholecystectomy, Hernia Repair Genitourinary: No Pertinent History Musculoskeletal: Joint Replacement, Orthopedic Surgery Female Surgical History: Hysterectomy Other Surgical History: torn miniscus and implant-RT KNEE" partial scope replacement" - Social History Smoking Status: Former smoker How long have you smoked: 25 Exposure to second hand smoke: Yes Alcohol Use: None Drug Use: none Patient Lives Alone: No Significant Family History: no pertinent family hx, heart disease, diabetes, hypertension - Female History Hx Now: No - Nursing Vital Signs Nursing Vital Signs: Initial Vital Signs Temperature 98.2 F 12/21/16 12:40 Pulse Rate 88 12/21/16 12:40 Respiratory Rate 18 12/21/16 12:40 Blood Pressure 149/66 12/21/16 12:40 O2 Sat by Pulse Oximetry 100 12/21/16 12:40 Pain Scale Pain Intensity 7 - Physical Exam General Appearance: moderate distress (CP and sob), alert, obese Eye Exam: PERRL/EOMI, eyes nml inspection, No photophobia Ears, Nose, Throat Exam: normal ENT inspection, TMs normal, pharynx normal, moist mucous membranes Neck Exam: normal inspection, non-tender, supple, full range of motion, No meningismus, No JVD Respiratory Exam: lungs clear, respiratory distress (mild tachypnea), airway intact, diminished breath sounds, No chest tenderness, No crackles/rales, No rhonchi, No wheezing, No pleural rub Cardiovascular Exam: regular rate/rhythm, normal heart sounds, normal peripheral pulses, capillary refill 2-3 sec, No murmur Gastrointestinal/Abdomen Exam: soft, normal bowel sounds, No tenderness, No guarding, No pulsatile mass, No rebound, No organomegaly Pelvic Exam: deferred Rectal Exam: deferred Back Exam: normal inspection, normal range of motion, No CVA tenderness Extremity Exam: normal inspection, normal range of motion, adriana's sign, tenderness (bilateral calves R>L), No pedal edema Neurologic Exam: alert, oriented x 3, cooperative, wet cotton feeder II-XII nml as tested, normal mood/affect, nml cerebellar function, nml station & gait Skin Exam: normal color, warm, dry, No rash, No petechiae, No cyanosis Lymphatic Exam: No adenopathy SpO2 Interpretation: normal, O2 applied SpO2: 100 Oxygen Delivery: Nasal Cannula (2l) - Course Nursing assessment & vital signs reviewed: Yes EKG Interpreted by Me: RATE (84), Sinus Rhythm, NORMAL AXIS, NORMAL INTERVALS, NORMAL QRS, Q-wave Rhythm Strip: Rate (84), Normal Sinus Rhythm - Radiology Exams Chest X-ray Interpretation: Reviewed by me, Nml Heart Size, Infiltrates (new left base ), Other (persistant elevated right hemidiaphram) - Radiology Ultrasound Exam Venous Lower Extremity Ultrasound: tele radiology report, negative (bilateral no DVTs) Ordered Tests: Active Orders 24 hr Category Date Time Status Accucheck ACHS Care 12/21/16 15:11 Ordered Admission/Status Order ROUTINE Care 12/21/16 15:11 Ordered Call Admit Doctor for Orders ON ADMISSION Care 12/21/16 15:12 Ordered Compounder Helper STAT Care 12/21/16 12:33 Active Code Status Order ROUTINE Care 12/21/16 15:11 Ordered EKG-ER Only STAT Care 12/21/16 12:33 Active Fall Protocol ROUTINE Care 12/21/16 15:12 Ordered IV Care Q6H Care 12/21/16 15:11 Ordered Oxygen-ED Only NASAL CANNULA 2 lpm Care 12/21/16 12:33 Active Pulse Oximetry (ED) STAT Care 12/21/16 12:33 Active Re-Check Vital Signs STAT Care 12/21/16 12:33 Active Hermilo Bobo ROUTINE Care 12/21/16 15:11 Ordered Telemetry ROUTINE Care 12/21/16 15:11 Ordered Weight,Daily 0600 Care 12/21/16 15:11 Ordered Cardiac Diet Diet 12/21/16 Dinner Ordered CHEST 1 VIEW (PORTABLE) Stat Exams 12/21/16 12:33 Completed CHEST WITH CONTRAST [CT] Stat Exams 12/21/16 13:56 Taken VENOUS BILATERAL EXTREMITY [US] Stat Exams 12/21/16 12:48 Completed BLOOD CULTURE Stat Lab 12/21/16 13:22 Received CBC W DIFF Stat Lab 12/21/16 12:45 Completed CMP Stat Lab 12/21/16 12:45 Completed D-DIMER QUANTITATION Stat Lab 12/21/16 12:45 Completed Lactic Acid Urgent Lab 12/21/16 12:33 Completed MAGNESIUM Stat Lab 12/21/16 12:45 Completed NT PRO BNP Stat Lab 12/21/16 12:45 Completed PROTIME WITH INR Stat Lab 12/21/16 12:45 Completed TROPONIN Q3H Lab 12/21/16 12:45 Completed TROPONIN Q3H Lab 12/21/16 15:45 Ordered TROPONIN Q3H Lab 12/21/16 18:45 Ordered TROPONIN Q3H Lab 12/21/16 21:45 Ordered TROPONIN Q3H Lab 12/22/16 00:45 Ordered UA W/RFX UR CULTURE Stat Lab 12/21/16 14:51 Received Transfer Order Routine Transfer 12/21/16 15:10 Ordered Medication Summary Generic Name Dose Route Start Last Admin Trade Name Freq PRN Reason Stop Dose Admin Enoxaparin Sodium 90 mg 12/21/16 14:45 Enoxaparin Sodium SQ 01/20/17 14:44 Q12H LAMONTE Sodium Chloride 1,000 mls @ 50 mls/hr 12/21/16 12:45 12/21/16 13:19 Sodium Chloride 0.9% 1000 Ml IV 01/20/17 12:44 50 mls/hr .Q20H LAMONTE Administration Discontinued Medications Generic Name Dose Route Start Last Admin Trade Name Freq PRN Reason Stop Dose Admin Hydromorphone HCl Confirm 12/21/16 13:42 Hydromorphone 1 Mg/Ml Ampule Administered 12/21/16 13:43 Dose 1 mg .ROUTE .STK-MED ONE Hydromorphone HCl 0.5 mg 12/21/16 13:46 12/21/16 13:48 Hydromorphone 1 Mg/Ml Ampule IV 12/21/16 13:47 0.5 mg STAT ONE Administration Hydromorphone HCl 0.5 mg 12/21/16 14:24 12/21/16 14:29 Hydromorphone 1 Mg/Ml Ampule IV 12/21/16 14:25 0.5 mg STAT ONE Administration Hydromorphone HCl Confirm 12/21/16 14:27 Hydromorphone 1 Mg/Ml Ampule Administered 12/21/16 14:28 Dose 1 mg .ROUTE .STK-MED ONE Nitroglycerin 1 gm 12/21/16 12:33 12/21/16 13:19 Nitro-Bid 2% Ud Packets TOP 12/21/16 12:34 1 gm STAT ONE Administration Nitroglycerin Confirm 12/21/16 13:01 Nitro-Bid 2% Ud Packets Administered 12/21/16 13:02 Dose 1 gm .ROUTE .STK-MED ONE Ondansetron HCl 4 mg 12/21/16 12:37 12/21/16 13:19 Zofran 4 Mg/2 Ml Vial IV 12/21/16 12:38 4 mg STAT ONE Administration Ondansetron HCl Confirm 12/21/16 13:01 Zofran 4 Mg/2 Ml Vial Administered 12/21/16 13:02 Dose 4 mg .ROUTE .STK-MED ONE Lab/Rad Data: Laboratory Result Diagrams 12/21/16 12:45 12/21/16 12:45 Laboratory Results 12/21/16 12/21/16 12/21/16 Range/Units 12:45 12:45 12:45 WBC (4.0-10.5) K/mm3 RBC (4.1-5.4) M/mm3 Hgb (12.0-16.0) gm/dl Hct (35-47) % MCV (78-100) fl MCH (26-32) pg MCHC (32-36) g/dl RDW (11.5-14.0) % Plt Count (150-450) K/mm3 MPV (6-9.5) fl Gran % (36.0-66.0) % Lymphocytes % (24.0-44.0) % Monocytes % (0.0-12.0) % Eosinophils % (0.00-5.0) % Basophils % (0.0-0.4) % Basophils # (0-0.4) INR 1.05 (0.8-3.0) D-Dimer 534 H* (0-500) ng/mL Sodium 141 (136-145) mEq/L Potassium 3.3 L (3.5-5.1) mEq/L Chloride 102 (98-107) mEq/L Carbon Dioxide 29.8 (21-32) mEq/L Anion Gap 12.5 (5-15) MEQ/L BUN 5 L (9-20) mg/dL Creatinine 0.86 (0.55-1.30) mg/dl Estimated GFR > 60 ML/MIN Glucose 106 (70-110) MG/DL Lactic Acid (0.4-2.0) Calcium 9.6 (8.5-10.1) mg/dL Magnesium 2.2 (1.8-2.4) mg/dL Total Bilirubin 0.30 (0.2-1.0) mg/dL AST 20 (15-37) U/L ALT 21 (12-78) U/L Alkaline Phosphatase 117 H (46-116) U/L Troponin I < 0.017 (0.000-0.056) ng/ml NT-Pro-B Natriuret Pep 20 (0-125) pg/ml Serum Total Protein 8.1 (6.4-8.2) gm/dL Albumin 4.3 (3.4-5.0) g/dL 12/21/16 12/21/16 Range/Units 12:45 12:33 WBC 6.3 (4.0-10.5) K/mm3 RBC 4.44 (4.1-5.4) M/mm3 Hgb 12.5 (12.0-16.0) gm/dl Hct 37.9 (35-47) % MCV 85.4 (78-100) fl MCH 28.2 (26-32) pg MCHC 33.0 (32-36) g/dl RDW 14.2 H (11.5-14.0) % Plt Count 158 (150-450) K/mm3 MPV 10.4 H (6-9.5) fl Gran % 61.0 (36.0-66.0) % Lymphocytes % 24.6 (24.0-44.0) % Monocytes % 11.5 (0.0-12.0) % Eosinophils % 2.7 (0.00-5.0) % Basophils % 0.2 (0.0-0.4) % Basophils # 0.01 (0-0.4) INR (0.8-3.0) D-Dimer (0-500) ng/mL Sodium (136-145) mEq/L Potassium (3.5-5.1) mEq/L Chloride (98-107) mEq/L Carbon Dioxide (21-32) mEq/L Anion Gap (5-15) MEQ/L BUN (9-20) mg/dL Creatinine (0.55-1.30) mg/dl Estimated GFR ML/MIN Glucose (70-110) MG/DL Lactic Acid 1.0 (0.4-2.0) Calcium (8.5-10.1) mg/dL Magnesium (1.8-2.4) mg/dL Total Bilirubin (0.2-1.0) mg/dL AST (15-37) U/L ALT (12-78) U/L Alkaline Phosphatase (46-116) U/L Troponin I (0.000-0.056) ng/ml NT-Pro-B Natriuret Pep (0-125) pg/ml Serum Total Protein (6.4-8.2) gm/dL Albumin (3.4-5.0) g/dL reviewed - Progress Progress: re-examined (after meds) Air Movement: fair Progress Note: 12/21/16 13:19 rechecked after US and NO DVTs; CXR shows new infiltrate LLL ? etiology; EKG ok ; CBC ok; VS ok; Lactate wnl; Blood cultures being drawn; Pulse ox 100% on 2 l nc; no change in exam; NTG placed will monitor and recheck 12/21/16 13:33 Troponin WNL; CMP ok except slightly low K+ 3.3; D Dimer pending; Renal function ok and BS ok 106; NTG helped some with pain but stil 6/10 and will medicate 12/21/16 13:57 D Dimer elevated renal function ok will get CT to ro PE 12/21/16 14:09 D Dimer elevated at 534; Dilaudid helped; patient and family informed and discussed CT 12/21/16 14:35 cT Scanner down; Dr Alfaro consulted and will admit; we will give a loading dose of Lovenox while waiting no CT second pain meds helped; patient and family notified 12/21/16 15:13 CT result pending; Dr Alfaro consulted and will admit patient and family notifed Blood Culture(s) Obtained: Yes Antibiotics given: Yes (given in the office before coming to the ED) Discussed with : Dominic (called before patient arrived; wants CP workup then admit; notified and willadmit) Will see patient in: hospital (full admit) Counseled pt/family regarding: lab results, diagnosis, need for follow-up, rad results - Departure Time of Disposition: 14:37 Departure Disposition: In-patient Admission Clinical Impression: Hypokalemia, Diabetes type 2, controlled, Pneumonia, Chest pain at rest, Elevated d-dimer Condition: Serious Critical Care Time: Yes Critical Care Time(excluding separately billable procedures): 30-74 minutes Referrals: ERICA ALFARO [Primary Care Provider] -
[2016-12-21 12:58] LABS: BASOPHIL % 0.2 % (0.0-0.4); Eosinophil % 2.7 % (0.00-5.0); Lymphocytes % 24.6 % (24.0-44.0); Mean Cell Volume 85.4 fl (78-100); Mean Corpuscular Hemoglobin 28.2 pg (26-32); Mean Platelet Volume 10.4 fl (6-9.5); Monocytes % 11.5 % (0.0-12.0); Platelet Count 158 K/mm3 (150-450); Red Blood Count 4.44 M/mm3 (4.1-5.4); Red Cell Distribution Width 14.2 % (11.5-14.0); White Blood Count 6.3 K/mm3 (4.0-10.5)
--- NOTE | 2016-12-21 13:00 | XRAY ---
Indication: Short of breath. Comparison: October 25, 2016. Portal chest demonstrates continued right hemidiaphragm elevation. There is now subtle left lung base infiltrate/atelectasis and left upper lung discoid atelectasis/scarring. Remaining heart and bony thorax normal.
[2016-12-21] MEDS ORDERED: NITRO-BID 2% UD PACKETS ONE (13:01)
[2016-12-21] MEDS ORDERED: Zofran 4 MG/2 ML VIAL ONE (13:01)
[2016-12-21] MEDS: Sodium Chloride 0.9% 1000 ML 1,000 ML IV SCH (13:19)
[2016-12-21 13:29] LABS: ALBUMIN 4.3 g/dL (3.4-5.0); ALKALINE PHOSPHATASE 117 U/L (46-116); ANION GAP 12.5 MEQ/L (5-15); BLOOD UREA NITROGEN 5 mg/dL (9-20); CHLORIDE 102 mEq/L (98-107); Carbon Dioxide 29.8 mEq/L (21-32); Glucose 106 MG/DL (70-110); MAGNESIUM 2.2 mg/dL (1.8-2.4); Potassium 3.3 mEq/L (3.5-5.1); SGOT/AST 20 U/L (15-37); SGPT/ALT 21 U/L (12-78); SODIUM 141 mEq/L (136-145); Total Protein 8.1 gm/dL (6.4-8.2)
--- NOTE | 2016-12-21 13:33 | XRAY ---
Indication: Leg pain. History of PE. Two-dimensional sonogram and color Doppler imaging of the major venous vessels of the left and right leg was performed. Comparison: Right leg venous ultrasound study of July 16, 2015. No thrombus seen in the examined deep venous vessels of the left or right leg including greater saphenous veins. Veins demonstrate normal compressibility. Venous waveforms are normal with and without augmentation. Impression: Left and right legs negative for DVT.
[2016-12-21] MEDS ORDERED: DILAUDID 2 MG INJECTION IV ONE (13:36)
[2016-12-21 13:40] LABS: INR 1.05 (0.8-3.0); PROTIME 11.9 SECONDS (9.95-12.35)
[2016-12-21] MEDS ORDERED: Hydromorphone 1 mg/ml Ampule ONE ×2 (13:42→14:27)
[2016-12-21] MEDS ORDERED: Hydromorphone 1 mg/ml Ampule IV ONE ×2 (13:46→14:24)
[2016-12-21] MEDS ORDERED: ENOXAPARIN SODIUM SQ SCH (14:45)
--- NOTE | 2016-12-21 15:21 | XRAY ---
Indication: Short of breath and chest pain. Elevated d-dimer. Multiple contiguous axial images obtained through the chest using a total of 100 cc Isovue 370 contrast and PE protocol. Comparison: October 14, 2016. There is satisfactory opacification of the pulmonary arteries to include the lobar and segmental branches. Again no filling defect or pulmonary embolus. Heart is not enlarged. Aorta is normal in course and caliber. No pathologic mediastinal/hilar lymphadenopathy. Examination of the lung parenchyma again demonstrates lingular and both lower lobe subsegmental atelectasis/scarring less than before. No pulmonary mass, infiltrate, or effusion. Stable right hemidiaphragm elevation. Bony thorax intact. Limited upper abdomen again demonstrates fatty liver. Impression: 1. Again negative for pulmonary embolus. 2. Bilateral subsegmental atelectasis/scarring. 3. No acute cardiopulmonary abnormalities. 4. Stable chronic right hemidiaphragm elevation and fatty liver. CTDI 22.93
[2016-12-21 15:29] LABS: Bilirubin NEGATIVE (NEGATIVE); Blood NEGATIVE Ery/ul (0-5); COMPLETE URINE MICROSCOPIC? NO; Collection Type CCMS; Glucose NEGATIVE (NEGATIVE); Leukocyte Esterase NEGATIVE (NEGATIVE)
[2016-12-21 15:30] LABS: ADD URINE CULTURE? NO (NO)
[2016-12-21] MEDS ORDERED: Valium 5 MG PO PRN (20:30)
[2016-12-21] MEDS ORDERED: Phenergan 25 MG INJ ONE (21:48)
[2016-12-21] MEDS ORDERED: Zofran 4 MG/2 ML VIAL IV PRN (21:54)
[2016-12-21] MEDS ORDERED: Phenergan 25 MG INJ IV PRN (21:55)
[2016-12-21] MEDS ORDERED: Cardizem CD 180 MG PO SCH (22:00)
[2016-12-21] MEDS ORDERED: Neurontin 400 MG PO ONE (22:00)
[2016-12-21] MEDS: Norco 10/325 MG Tablet PO PRN (22:02)
[2016-12-21] MEDS: lamICTAL 100MG TABLET PO SCH (22:03)
[2016-12-21] MEDS: Desyrel 150 MG PO SCH (22:03)
[2016-12-21] MEDS: ZOCOR 20MG PO SCH (22:03)
[2016-12-21] MEDS: ENOXAPARIN SODIUM SQ SCH (22:05)
[2016-12-21] MEDS: Carafate 1 GM PO SCH (23:29)
[2016-12-22] MEDS: Norco 10/325 MG Tablet PO PRN ×3 (07:22→21:17)
[2016-12-22] MEDS: Carafate 1 GM PO SCH ×4 (07:22→21:16)
[2016-12-22] MEDS: Sodium Chloride 0.9% 1000 ML 1,000 ML IV SCH (07:24)
[2016-12-22] MEDS ORDERED: Ventolin Hfa MDI IH PRN (07:37)
[2016-12-22] MEDS: Lantus Insulin SQ SCH (07:48)
[2016-12-22] MEDS ORDERED: MEDICATION INTERVENTION MC SCH (08:00)
[2016-12-22] MEDS ORDERED: INSULIN DETEMIR 7 UNIT SQ SCH ×2 (08:00→10:00)
[2016-12-22] MEDS: Neurontin 400 MG PO SCH ×4 (08:31→21:16)
[2016-12-22] MEDS: SYNTHROID 100 MCG PO SCH (08:31)
[2016-12-22] MEDS: Protonix 40MG Tablet PO SCH (08:31)
[2016-12-22] MEDS: MAG-OX 400 PO SCH (08:31)
[2016-12-22] MEDS: PLAVIX 75 MG Tablet PO SCH (08:31)
[2016-12-22] MEDS: lamICTAL 100MG TABLET PO SCH ×2 (08:31→21:16)
[2016-12-22] MEDS: Zithromax 500 MG/ 250 ML NaCl Premix 500 MG/250 ML IVPB IV SCH (08:35)
[2016-12-22] MEDS ORDERED: BUMEX 1 MG PO SCH (10:00)
[2016-12-22] MEDS ORDERED: TRIAMCINOLONE ACETONIDE IH SCH (10:00)
[2016-12-22] MEDS ORDERED: GABAPENTIN 1600 MG PO SCH (10:00)
[2016-12-22] MEDS ORDERED: NON-FORMULARY ITEM (Propranolol Hcl [Propranolol Hcl Er] 80 MG) PO SCH (10:00)
[2016-12-22] MEDS ORDERED: NON-FORMULARY ITEM (Estradiol [Estrace] 0.5 MG) PO SCH (10:00)
[2016-12-22] MEDS ORDERED: KETOCONAZOLE TP SCH (10:00)
[2016-12-22] MEDS ORDERED: HYDROCORTISONE TP SCH (10:00)
[2016-12-22] MEDS ORDERED: ENOXAPARIN SODIUM SQ SCH (10:00)
[2016-12-22] MEDS: ROCEPHIN 1 Gm-D5w 50 ml Bag** 1 G/50 ML IVPB IV SCH (10:29)
[2016-12-22] MEDS: solu-MEDROL 125 MG IV SCH ×2 (10:30→17:11)
[2016-12-22] MEDS: ESTRACE 1 MG PO SCH (10:31)
[2016-12-22] MEDS: ARIPIPRAZOLE 2 MG PO SCH (10:32)
[2016-12-22] MEDS: Flonase NASAL NS SCH (10:32)
[2016-12-22] MEDS: ZOLOFT 50 MG TABLET PO SCH (10:32)
[2016-12-22] MEDS: PROVENTIL 2.5 MG/3 ML NEB IH SCH ×3 (10:45→19:00)
[2016-12-22] MEDS: ENOXAPARIN SODIUM SQ SCH (12:29)
[2016-12-22] MEDS: Desyrel 150 MG PO SCH (21:16)
[2016-12-22] MEDS: ZOCOR 20MG PO SCH (21:16)
[2016-12-22] MEDS: NovoLOG Insulin SQ PRN (21:31)
--- NOTE | 2016-12-22 23:21 | PCM.NOTE ---
Date and Time: 12/22/169 Subjective Assessment: Late entry for 12/22/16 08:45 am Pt seen by me in office yesterday, needed admission for SOB and CP but had to go through ER. Was found to have L sided pneumonia and admitted for CP rule out and IV antibiotics. Reported fever to 102 at home but afebrile in the office. D-dimer was mildly elevated but CTA chest negative for PE. This morning she states she feels "worse" than on admission. C/o chest heaviness. She is tolerating po. Has not been having breathing treatments. She c/o some irritation to her R nipple. Objective Exam General Appearance: no apparent distress Neurologic Exam: alert, oriented x 3, cooperative Skin Exam: normal color, warm, dry Eye Exam: eyes nml inspection Neck Exam: normal inspection Respiratory Exam: normal breath sounds, crackles/rales (LLL), wheezing (faint occasional), No rhonchi Cardiovascular Exam: regular rate/rhythm, normal heart sounds, No murmur Extremity Exam: normal inspection, No pedal edema, No swelling Back Exam: normal inspection OBJECTIVE DATA Vital Signs: Vital Signs - 24 hr Temp Pulse Resp BP Pulse Ox 12/22/16 20:00 98.3 F 98 H 18 104/56 96 12/22/16 19:00 94 H 18 96 12/22/16 16:00 97.9 F 89 17 107/60 97 12/22/16 14:49 87 20 96 12/22/16 12:00 97.8 F 77 18 91/50 97 12/22/16 10:47 74 18 97 12/22/16 08:00 97.8 F 76 17 106/59 98 12/22/16 07:43 73 16 99 12/22/16 04:00 97.9 F 69 16 87/48 95 12/22/16 00:47 79 18 99 12/22/16 00:26 97.8 F 86 19 128/76 97 12/22/16 00:22 97 12/22/16 00:00 20 Oxygen-Last 24 hours O2 Percentage 2 Liters = 28% O2 Percentage 2 Liters = 28% O2 Percentage 2 Liters = 28% O2 Percentage 2 Liters = 28% O2 Percentage 2 Liters = 28% O2 Percentage 2 Liters = 28% Pain Assessment - Last Documented Pain Intensity 8 Pain Scale Used 0-10 Pain Scale Intake and Output: Intake & Output 12/20/16 12/21/16 12/22/16 12/23/16 11:59 11:59 11:59 11:59 Intake Total 2819 1080 Output Total 300 Balance 2519 1080 Weight 93.032 kg 93 kg Lab Results: Accuchecks Date 12/22/16 Date 12/22/16 Date 12/22/16 Time 16:45 Time 11:28 Time 07:14 Accucheck Value: 244 Accucheck Value: 191 Accucheck Value: 124 Accucheck Value: 192 Lab Results-Last 24 Hours 12/22/16 Range/Units 01:12 Troponin I < 0.017 (0.000-0.056) ng/ml Multi-Disciplinary Progress Notes: Multi-Disciplinary Progress Notes 12/22/16 09:00 (created 12/22/16 09:40) Case Management Note by Katie Montero REVIEWED DISCHARGE PLAN. PROVIDES SELF CARE, INDEPENDENT WITH ALL ADL'S. PLAN TO RETURN HOME TO PRE EPISODIC LEVEL OF FNX. Initialized on 12/22/16 09:40 - END OF NOTE 12/22/16 00:36 Respiratory Note by Joe Au NURSING ASKED FOR ME TO ASSESS PT SHE STATES SHE WAS GIVEN SOMETHING SHE WAS ALLERGIC TO AND SAID SHE WAS HAVING A HARD TIME BREATHING. PT SATS ON 2LPM WERE 99% ON 2LPM AND HR WAS 79. PT DID NOT APPEAR SOB AND HAD NO WHEEZING. PT WAS ON CELL PHONE MOST OF THE TIME I WAS IN THE . PT USES AN ALBUTEROL MDI PRN. I OFFERED TO GIVE HER A CPL PUFFS IF SHE FELT THAT IT WOULD HELP BUT ADDED THAT IF SHE WAS FEELING "SHAKEY" ALREADY THAT THE MDI MAY ADD TO IT. SHE STATED SHE WAS FINE W/O IT FOR NOW. I LET HER KNOW THAT SHE CLD CALL FOR ME AT ANY TIME THIS BRODIE. I DID ADD HUMIDITY TO HER O2. Initialized on 12/22/16 00:36 - END OF NOTE Assessment/Plan (1) Pneumonia Current Visit: Yes Status: Acute Qualifiers: Pneumonia type: due to unspecified organism Laterality: left Lung location: unspecified part of lung Qualified Code(s): J18.9 - Pneumonia, unspecified organism Assessment & Plan: Given rocephin IM in office, then started on rocephin IV today (day #2 of rocephin). Also on zithromax IV. Started IV steroid today d/t slight wheeze and complaint of chest heaviness. Also breathing tx QID (albuterol). Code(s): J18.9 - PNEUMONIA, UNSPECIFIED ORGANISM (2) Chest pain at rest Current Visit: Yes Status: Acute Assessment & Plan: Ruling out AR with troponins. Negative so far. Code(s): R07.9 - CHEST PAIN, UNSPECIFIED (3) Diabetes type 2, controlled Current Visit: Yes Status: Chronic Qualifiers: Diabetes mellitus complication status: without complication Diabetes mellitus senior care insulin use: with senior care use Qualified Code(s): E11.9 - Type 2 diabetes mellitus without complications; Z79.4 - custodial (current) use of insulin Assessment & Plan: accuchecks AC/HS Code(s): E11.9 - TYPE 2 DIABETES MELLITUS WITHOUT COMPLICATIONS (4) Hypokalemia Current Visit: Yes Status: Acute Code(s): E87.6 - HYPOKALEMIA (5) Depression Current Visit: Yes Status: Chronic Qualifiers: Depression Type: major depressive disorder Major depression recurrence: recurrent Active/Remission status: currently active Major depression episode severity: moderate Qualified Code(s): F33.1 - Major depressive disorder, recurrent, moderate Assessment & Plan: Pt has persistent depression at baseline. Continue current meds. Code(s): F32.9 - MAJOR DEPRESSIVE DISORDER, SINGLE EPISODE, UNSPECIFIED
[2016-12-22] MEDS: Cyclobenzaprine 10 MG PO PRN (23:23)
[2016-12-23] MEDS: solu-MEDROL 125 MG IV SCH ×3 (01:31→18:18)
[2016-12-23] MEDS: Sodium Chloride 0.9% 1000 ML 1,000 ML IV SCH (04:36)
[2016-12-23 06:04] LABS: Granulocytes % 86.7 % (36.0-66.0); Lymphocytes % 11.3 % (24.0-44.0); Mean Cell Volume 86.5 fl (78-100); Mean Corpuscular Hemoglobin 27.7 pg (26-32); Mean Platelet Volume 10.6 fl (6-9.5); Platelet Count 155 K/mm3 (150-450); Red Blood Count 3.64 M/mm3 (4.1-5.4); Red Cell Distribution Width 13.8 % (11.5-14.0); White Blood Count 6.6 K/mm3 (4.0-10.5)
[2016-12-23 06:41] LABS: ANION GAP 11.2 MEQ/L (5-15); BLOOD UREA NITROGEN 7 mg/dL (9-20); CHLORIDE 106 mEq/L (98-107); Carbon Dioxide 29.1 mEq/L (21-32); Glucose 176 MG/DL (70-110); MAGNESIUM 2.1 mg/dL (1.8-2.4); SODIUM 142 mEq/L (136-145)
[2016-12-23] MEDS: PROVENTIL 2.5 MG/3 ML NEB IH SCH ×3 (07:03→19:20)
[2016-12-23] MEDS: Lantus Insulin SQ SCH (07:48)
[2016-12-23] MEDS: Carafate 1 GM PO SCH ×4 (07:48→22:59)
[2016-12-23] MEDS: Protonix 40MG Tablet PO SCH (10:02)
[2016-12-23] MEDS: lamICTAL 100MG TABLET PO SCH ×2 (10:02→22:59)
[2016-12-23] MEDS: ZOLOFT 50 MG TABLET PO SCH (10:02)
[2016-12-23] MEDS: SYNTHROID 100 MCG PO SCH (10:02)
[2016-12-23] MEDS: PLAVIX 75 MG Tablet PO SCH (10:03)
[2016-12-23] MEDS: Neurontin 400 MG PO SCH ×4 (10:03→22:59)
[2016-12-23] MEDS: MAG-OX 400 PO SCH (10:03)
[2016-12-23] MEDS: Flonase NASAL NS SCH (10:03)
[2016-12-23] MEDS: ESTRACE 1 MG PO SCH (10:04)
[2016-12-23] MEDS: ROCEPHIN 1 Gm-D5w 50 ml Bag** 1 G/50 ML IVPB IV SCH (10:04)
[2016-12-23] MEDS: ARIPIPRAZOLE 2 MG PO SCH (10:05)
[2016-12-23] MEDS: OXYCODONE-ACETAMINOPHEN 10-325 PO PRN ×3 (10:11→19:53)
[2016-12-23] MEDS: ENOXAPARIN SODIUM SQ SCH ×2 (10:12→23:00)
[2016-12-23] MEDS: Zithromax 500 MG/ 250 ML NaCl Premix 500 MG/250 ML IVPB IV SCH (10:54)
[2016-12-23] MEDS: PROVENTIL COMMON CANISTER IH PRN ×2 (14:57→19:17)
[2016-12-23] MEDS: NovoLOG Insulin SQ PRN (16:06)
[2016-12-23] MEDS ORDERED: PROVENTIL 2.5 MG/3 ML NEB IH PRN (20:33)
[2016-12-23] MEDS: Desyrel 150 MG PO SCH (22:59)
[2016-12-23] MEDS: ZOCOR 20MG PO SCH (22:59)
[2016-12-24] MEDS: Sodium Chloride 0.9% 1000 ML 1,000 ML IV SCH (02:02)
[2016-12-24] MEDS: solu-MEDROL 125 MG IV SCH ×3 (02:03→17:47)
[2016-12-24] MEDS: OXYCODONE-ACETAMINOPHEN 10-325 PO PRN ×4 (02:03→19:46)
[2016-12-24 05:37] LABS: BASOPHIL % 0.1 % (0.0-0.4); Granulocytes % 89.2 % (36.0-66.0); Lymphocytes % 8.5 % (24.0-44.0); Mean Cell Volume 87.1 fl (78-100); Mean Platelet Volume 10.6 fl (6-9.5); Monocytes % 2.2 % (0.0-12.0); Platelet Count 150 K/mm3 (150-450); Red Blood Count 3.49 M/mm3 (4.1-5.4); Red Cell Distribution Width 14.2 % (11.5-14.0); White Blood Count 10.2 K/mm3 (4.0-10.5)
[2016-12-24 05:38] LABS: Mean Corpuscular Hemoglobin 27.7 pg (26-32)
[2016-12-24 06:06] LABS: ALBUMIN 3.4 g/dL (3.4-5.0); ALKALINE PHOSPHATASE 83 U/L (46-116); ANION GAP 9.6 MEQ/L (5-15); BLOOD UREA NITROGEN 12 mg/dL (9-20); CHLORIDE 107 mEq/L (98-107); Carbon Dioxide 30.7 mEq/L (21-32); Glucose 140 MG/DL (70-110); Potassium 4.2 mEq/L (3.5-5.1); SGOT/AST 14 U/L (15-37); SGPT/ALT 20 U/L (12-78); SODIUM 143 mEq/L (136-145); Total Protein 6.5 gm/dL (6.4-8.2)
[2016-12-24 06:33] LABS: BILIRUBIN,TOTAL < 0.10 mg/dL (0.2-1.0)
[2016-12-24] MEDS: Carafate 1 GM PO SCH ×4 (07:39→22:05)
[2016-12-24] MEDS: Lantus Insulin SQ SCH (07:40)
[2016-12-24] MEDS: NovoLOG Insulin SQ PRN (07:41)
[2016-12-24] MEDS: PROVENTIL COMMON CANISTER IH SCH ×4 (07:56→19:07)
[2016-12-24] MEDS: lamICTAL 100MG TABLET PO SCH ×2 (09:17→22:04)
[2016-12-24] MEDS: PLAVIX 75 MG Tablet PO SCH (09:17)
[2016-12-24] MEDS: SYNTHROID 100 MCG PO SCH (09:18)
[2016-12-24] MEDS: Protonix 40MG Tablet PO SCH (09:18)
[2016-12-24] MEDS: ZOLOFT 50 MG TABLET PO SCH (09:18)
[2016-12-24] MEDS: Neurontin 400 MG PO SCH ×4 (09:18→22:05)
[2016-12-24] MEDS: MAG-OX 400 PO SCH (09:18)
[2016-12-24] MEDS: Flonase NASAL NS SCH (09:19)
[2016-12-24] MEDS: ROCEPHIN 1 Gm-D5w 50 ml Bag** 1 G/50 ML IVPB IV SCH (09:20)
[2016-12-24] MEDS: Zithromax 500 MG/ 250 ML NaCl Premix 500 MG/250 ML IVPB IV SCH (09:20)
[2016-12-24] MEDS: ARIPIPRAZOLE 2 MG PO SCH (09:23)
[2016-12-24] MEDS: ESTRACE 1 MG PO SCH (09:24)
[2016-12-24] MEDS: ENOXAPARIN SODIUM SQ SCH ×2 (09:34→22:06)
[2016-12-24] MEDS: ZOCOR 20MG PO SCH (22:04)
[2016-12-24] MEDS: Desyrel 150 MG PO SCH (22:05)
[2016-12-25] MEDS: solu-MEDROL 125 MG IV SCH ×3 (04:13→21:23)
[2016-12-25] MEDS: OXYCODONE-ACETAMINOPHEN 10-325 PO PRN ×3 (04:14→23:40)
[2016-12-25] MEDS: PROVENTIL COMMON CANISTER IH SCH ×4 (07:19→18:59)
[2016-12-25] MEDS: Lantus Insulin SQ SCH (07:58)
[2016-12-25] MEDS: Carafate 1 GM PO SCH ×4 (07:58→21:24)
[2016-12-25] MEDS ORDERED: DIPRIVAN 200 MG/20 ML IV ONE (08:00)
--- NOTE | 2016-12-25 08:57 | PCM.NOTE ---
Date and Time: 12/25/16 0852 Subjective Assessment: Pt wtih some lessening in chest pressure. Hard to cough anything up, but still having some cough. NPO this morning as she was interested in port placement. - Review of Systems Constitutional: No Fever Respiratory: Cough Objective Exam General Appearance: no apparent distress Neurologic Exam: alert, oriented x 3, cooperative Skin Exam: normal color, warm, dry Neck Exam: normal inspection, non-tender, No lymphadenopathy Respiratory Exam: normal breath sounds, lungs clear, No crackles/rales, No rhonchi, No wheezing Cardiovascular Exam: regular rate/rhythm, normal heart sounds, No murmur Extremity Exam: swelling (trace LE edema L ankle) OBJECTIVE DATA Vital Signs: Vital Signs - 24 hr Temp Pulse Resp BP Pulse Ox 12/25/16 07:43 97.8 F 74 16 136/74 93 L 12/25/16 04:00 98.6 F 66 18 161/93 94 L 12/25/16 00:00 98.2 F 67 18 164/93 93 L 12/24/16 20:00 97.7 F 67 16 165/92 93 L 12/24/16 19:07 71 18 97 12/24/16 16:09 97.8 F 89 20 140/63 95 12/24/16 15:09 87 20 95 12/24/16 12:16 97.7 F 87 20 137/80 95 12/24/16 11:15 82 18 96 Oxygen-Last 24 hours O2 Percentage 2 Liters = 28% O2 Percentage 2 Liters = 28% O2 Percentage 2 Liters = 28% Pain Assessment - Last Documented Pain Intensity 10 Pain Scale Used 0-10 Pain Scale Intake and Output: Intake & Output 12/22/16 12/23/16 12/24/16 12/25/16 11:59 11:59 11:59 11:59 Intake Total 2819 3068 3420 1080 Output Total 300 2250 500 400 Balance 2519 818 2920 680 Weight 93.032 kg 93 kg 96.162 kg Lab Results: Accuchecks Date 12/25/16 Date 12/24/16 Date 12/24/16 Date 12/24/16 Time 07:30 Time 21:40 Time 16:05 Time 11:54 Accucheck Value: 111 Accucheck Value: 129 Accucheck Value: 124 Accucheck Value: 142 Assessment/Plan (1) Pneumonia Current Visit: Yes Status: Acute Qualifiers: Pneumonia type: due to unspecified organism Laterality: left Lung location: unspecified part of lung Qualified Code(s): J18.9 - Pneumonia, unspecified organism Assessment & Plan: On IV rocephin. Finished 3d of IV zithromax. Code(s): J18.9 - PNEUMONIA, UNSPECIFIED ORGANISM (2) Chest pain at rest Current Visit: Yes Status: Acute Assessment & Plan: somewhat improved with IV steroids. Code(s): R07.9 - CHEST PAIN, UNSPECIFIED (3) Diabetes type 2, controlled Current Visit: Yes Status: Chronic Qualifiers: Diabetes mellitus complication status: without complication Diabetes mellitus longterm insulin use: with middle or intermediate school principal use Qualified Code(s): E11.9 - Type 2 diabetes mellitus without complications; Z79.4 - meterman (current) use of insulin Code(s): E11.9 - TYPE 2 DIABETES MELLITUS WITHOUT COMPLICATIONS (4) Hypokalemia Current Visit: Yes Status: Acute Code(s): E87.6 - HYPOKALEMIA (5) Depression Current Visit: Yes Status: Chronic Qualifiers: Depression Type: major depressive disorder Major depression recurrence: recurrent Active/Remission status: currently active Major depression episode severity: moderate Qualified Code(s): F33.1 - Major depressive disorder, recurrent, moderate Code(s): F32.9 - MAJOR DEPRESSIVE DISORDER, SINGLE EPISODE, UNSPECIFIED (6) History of pulmonary embolism Current Visit: Yes Status: Acute Assessment & Plan: she was dx with Factor V Leiden deficiency, she states down in [place]. She may have seen a painter assistant in consultation x 1 here at [facility]; will try to get those records. On plavis and lovenox. Code(s): Z86.711 - PERSONAL HISTORY OF PULMONARY EMBOLISM
[2016-12-25] MEDS ORDERED: SUBLIMAZE 100 MCG/2 ML IV ONE (10:00)
[2016-12-25] MEDS: lamICTAL 100MG TABLET PO SCH ×2 (10:26→21:23)
[2016-12-25] MEDS: MAG-OX 400 PO SCH (10:27)
[2016-12-25] MEDS: Protonix 40MG Tablet PO SCH (10:27)
[2016-12-25] MEDS: ZOLOFT 50 MG TABLET PO SCH (10:27)
[2016-12-25] MEDS: SYNTHROID 100 MCG PO SCH (10:27)
[2016-12-25] MEDS: Neurontin 400 MG PO SCH ×4 (10:28→21:24)
[2016-12-25] MEDS: ROCEPHIN 1 Gm-D5w 50 ml Bag** 1 G/50 ML IVPB IV SCH (10:28)
[2016-12-25] MEDS: Flonase NASAL NS SCH (10:30)
[2016-12-25] MEDS: ESTRACE 1 MG PO SCH (10:31)
[2016-12-25] MEDS: ARIPIPRAZOLE 2 MG PO SCH (10:31)
[2016-12-25] MEDS: ENOXAPARIN SODIUM SQ SCH ×2 (14:06→21:23)
[2016-12-25] MEDS: Lactated Ringers 1,000 ML IV SCH (14:20)
[2016-12-25] MEDS ORDERED: XYLOCAINE 1% HCL 20 ML MDV ONE (14:34)
--- NOTE | 2016-12-25 15:17 | CONS ---
CONSULT DATE: 12/25/2016 This patient was seen for Dr. Renner who was director television news for our group today. HISTORY: A 41 year-old in for some pneumonia and some bronchitis. CT negative for pulmonary embolism. She had elevated D-dimer according to the patient. Duplex was negative for deep venous thrombosis of the lower extremity. She has been on Lovenox and now Plavix. Last dose of Lovenox yesterday. She has poor peripheral access. She has IV in her right shoulder area at this time. PAST MEDICAL HISTORY: She has had multiple problems. Hypothyroidism, diabetes, anxiety, seizure disorder, history of transient ischemic attack/stroke in the past, history of pneumonia in the past, chronic obstructive pulmonary disease, knee pain, back pain, blood clots. She had been on Plavix in the past. PAST SURGICAL HISTORY: She denied any prior port placement. Cholecystectomy and hernia repair by Dr. Alarcon. Hysterectomy. She had knee surgery by Dr. Bryant. She had arthroscopy. She had hysteroscopy in the past. MEDICATIONS: Aripiprazole, bumetanide, Cartia XT, ceftriaxone, clopidogrel, B12, cyclobenzaprine, Diazepam, Estradiol, folic acid, gabapentin, hydrocodone, insulin, Lamictal, Levemir, levothyroxine, Lidoderm patch, loratadine, magnesium oxide, Naprosyn, omeprazole, Plavix, Prilosec, propranolol, B6, Sertraline, Simvastatin, trazodone, Trulicity, Ventolin, Zyrtec. ALLERGIES: PHENERGAN, PROZAC, ASPIRIN, DOXYCYCLINE, CODEINE, PENICILLIN, BREATHING TREATMENTS. FAMILY HISTORY: Heart disease, diabetes. SOCIAL HISTORY: Smoker half to one pack per day smoker. REVIEW OF SYSTEMS: Twelve systems reviewed per admission assessment. No chest pain or palpitations other systems negative or noncontributory as above and per preadmission questionnaire. PHYSICAL EXAMINATION: GENERAL: A chronically ill female on home O2 nasal cannula. HEENT: Sclera nonicteric. NECK: No JVD. CHEST: Equal excursion. Sign of prior port placement. CVS: Regular rhythm and pulse. ABDOMEN: Soft, nondistended. EXTREMITIES: She had a right upper arm IV in place. NEURO: Alert, moving extremities grossly symmetrically. LAB DATA AND TESTS: Her PLT 150,000, white blood cell count 10, hemoglobin 9.7. IMPRESSION: Very poor peripheral access, a patient with multiple medical problems and pneumonia. Poor peripheral access needing detention IV access for IV treatment. I feel she is a candidate for Port-A-Cath placement. Risks and benefits explained in detail but not limited to bleeding or infection, risk of thrombosis or pneumothorax, risk of arterial injury, remote risk of major venous tear, bleeding, risk of ongoing morbidity/mortality, risk of port or catheter fracture or failure, risk of port infection possibly requiring removal. General risk of anesthesia or sedation, general risk of pain, hematoma or seroma. She understands. She has history of pulmonary embolism in the past and her medical physician does not want her to come off the Lovenox. As she has very poor peripheral access and needs IV treatment she accepts the higher risk being on Plavix and presenting for Port-A-Cath placement with risk of bleeding into the chest, hematoma at the port or insertion site possibly requiring other procedures, ongoing morbidity. She understands that. She accepts the risk as they are not wanting to stop her Plavix given her history of pulmonary embolism, history of elevated D-dimer in the past. She accepts the increased risk of bleeding and complications. Will proceed with Port-A-Cath placement when OR time available today. This patient was seen for Dr. Renner who is director television news for our group today. He asked that I see the patient and proceed as he is tied up in [place] today.
[2016-12-25] MEDS ORDERED: DILAUDID 2 MG INJECTION ONE (16:29)
[2016-12-25] MEDS: PLAVIX 75 MG Tablet PO SCH (17:20)
--- NOTE | 2016-12-25 17:22 | XRAY ---
Indication: Port placement. Intraoperative fluoroscopy was provided for 3 seconds. Single digital spot image submitted for interpretation demonstrates left sided Port-A-Cath with the tip projecting over the proximal SVC. Correlate with intraoperative findings/report.
[2016-12-25] MEDS ORDERED: MORPHINE SULFATE 4 MG INJ IV PRN (17:57)
[2016-12-25] MEDS: Desyrel 150 MG PO SCH (21:23)
[2016-12-25] MEDS: ZOCOR 20MG PO SCH (21:24)
[2016-12-26] MEDS ORDERED: MORPHINE SULFATE 4 MG INJ IV PRN (06:37)
[2016-12-26] MEDS: PROVENTIL COMMON CANISTER IH SCH ×4 (06:39→18:57)
[2016-12-26] MEDS: OXYCODONE-ACETAMINOPHEN 10-325 PO PRN ×4 (07:36→20:01)
[2016-12-26] MEDS: Lantus Insulin SQ SCH (08:00)
[2016-12-26] MEDS: Carafate 1 GM PO SCH ×4 (08:00→22:39)
[2016-12-26] MEDS: MAG-OX 400 PO SCH (09:40)
[2016-12-26] MEDS: lamICTAL 100MG TABLET PO SCH ×2 (09:40→22:40)
[2016-12-26] MEDS: ZOLOFT 50 MG TABLET PO SCH (09:40)
[2016-12-26] MEDS: PLAVIX 75 MG Tablet PO SCH (09:41)
[2016-12-26] MEDS: Neurontin 400 MG PO SCH ×4 (09:41→22:41)
[2016-12-26] MEDS: Protonix 40MG Tablet PO SCH (09:41)
[2016-12-26] MEDS: SYNTHROID 100 MCG PO SCH (09:42)
[2016-12-26] MEDS: solu-MEDROL 125 MG IV SCH ×2 (09:42→22:41)
[2016-12-26] MEDS: ARIPIPRAZOLE 2 MG PO SCH (09:47)
[2016-12-26] MEDS: ROCEPHIN 1 Gm-D5w 50 ml Bag** 1 G/50 ML IVPB IV SCH (09:48)
[2016-12-26] MEDS: ENOXAPARIN SODIUM SQ SCH ×2 (09:48→22:39)
[2016-12-26] MEDS: Flonase NASAL NS SCH (09:49)
[2016-12-26] MEDS: ESTRACE 1 MG PO SCH (09:49)
[2016-12-26] MEDS: Cyclobenzaprine 10 MG PO PRN (09:59)
--- NOTE | 2016-12-26 10:46 | OP ---
SURGERY DATE/TIME: 12/25/2016 1540 PREOPERATIVE DIAGNOSIS: Pneumonia, history of elevated D-dimer, past history of pulmonary embolism, poor peripheral access, need for ocean transportation intermediary IV access for IV treatment. POSTOPERATIVE DIAGNOSIS: Pneumonia, history of elevated D-dimer, past history of pulmonary embolism, poor peripheral access, need for ocean transportation intermediary IV access for IV treatment. PROCEDURE: Tunnel Port-A-Cath placement with C-arm fluoroscopy left internal jugular vein with ultrasound guidance interpretation and cannulation. SURGEON: Dr. Bethel Devries. ANESTHESIA: General. ESTIMATED BLOOD LOSS: Minimal. INDICATIONS: As noted above. Risks and benefits explained in detail and not limited to and consent obtained. DESCRIPTION OF PROCEDURE AND FINDINGS: The patient is taken to the operating room. General anesthesia was introduced. The abdomen is prepped and draped in usual sterile fashion. After official time out and no disagreement with planned procedure, neck and chest prepped and draped in usual sterile fashion. In Trendelenburg position, 1% Lidocaine local had been infiltrated left subclavicular area. An 18 gauge cannulation needle inserted. Despite a couple of passes inadequate return from guidewire. Again this was tried on the right side subclavian. Again a couple of passes with inadequate return passing guidewire. It was felt that given her Plavix use that she could not come off of because of history of pulmonary embolism, it is not safe to keep random attempts so it was felt the safest approach would be jugular approach. Remained in Trendelenburg position. A sterile sleeve, sterile jelly, ultrasound transduction easily compressible internal jugular vein. Left internal jugular vein was noted. 18 gauge cannulation inserted on first pass. Good dark nonpulsatile venous return. Guidewire passed without difficulty followed by anesthetizing the tunnel track. Port pock transverse incision made. Inferior subcu port pocket created with aide of cautery. Port secured to the chest wall with Prolene suture x2. Catheter tunneled down from cannulation stab wound down the port pocket, dilator and break away sheath easily passed over the guidewire and the guidewire and dilator removed. Catheter fed down the breakaway sheath. The tip pulled back through the distal superior vena cava on C-arm fluoroscopy. The catheter is cut to appropriate length snapped onto port with the hub. Port aspirated dark nonpulsatile venous return with ease, flushed with heparinized saline with ease. Spot film had confirmed the tip in the location of the superior vena cava. Lung tovar noted to be up bilaterally. It was felt that no further x-rays were necessary. The patient tolerated the procedure well. Good hemostasis noted. She had some large subcu veins that had been coagulated. Good hemostasis noted. Subcu closed with 3-0 Vicryl. Skin closed with 4-0 Vicryl. Cannulation stab wound closed with 4-0 Vicryl. Steri-Strips and sterile dressings applied. The patient tolerated the procedure well. There were no immediate complications.
[2016-12-26] MEDS: Lactated Ringers 1,000 ML IV SCH (12:02)
[2016-12-26] MEDS: Desyrel 150 MG PO SCH (22:39)
[2016-12-26] MEDS: ZOCOR 20MG PO SCH (22:41)
[2016-12-27 05:44] LABS: Mean Corpuscular Hemoglobin 27.9 pg (26-32); Mean Platelet Volume 10.5 fl (6-9.5); Platelet Count 180 K/mm3 (150-450); Red Blood Count 4.19 M/mm3 (4.1-5.4); Red Cell Distribution Width 13.4 % (11.5-14.0); White Blood Count 7.2 K/mm3 (4.0-10.5)
[2016-12-27] MEDS: OXYCODONE-ACETAMINOPHEN 10-325 PO PRN ×3 (05:50→14:12)
[2016-12-27 06:22] LABS: ALBUMIN 3.3 g/dL (3.4-5.0); ALKALINE PHOSPHATASE 80 U/L (46-116); ANION GAP 9.8 MEQ/L (5-15); BLOOD UREA NITROGEN 13 mg/dL (9-20); CHLORIDE 104 mEq/L (98-107); Carbon Dioxide 31.6 mEq/L (21-32); Glucose 174 MG/DL (70-110); SGOT/AST 23 U/L (15-37); SGPT/ALT 42 U/L (12-78); SODIUM 141 mEq/L (136-145); Total Protein 6.5 gm/dL (6.4-8.2)
[2016-12-27 06:24] LABS: BAND 1 % (0.0-2.0); Platelet Estimate NORMAL (NORMAL); Total Cells Counted 100
[2016-12-27] MEDS: PROVENTIL COMMON CANISTER IH SCH ×3 (06:43→15:05)
[2016-12-27 06:59] VITALS: BP 150/94
[2016-12-27] MEDS: Carafate 1 GM PO SCH ×2 (07:21→11:47)
[2016-12-27] MEDS: Lantus Insulin SQ SCH (07:22)
[2016-12-27] MEDS ORDERED: Colace 100 MG PO PRN (08:51)
--- NOTE | 2016-12-27 08:55 | PCM.NOTE ---
Date and Time: 12/27/16 0848 Subjective Assessment: She is having intermittent cough and chest tightness; improved from previously. She c/o constipation. Had port placed; she states it was changed four times yesterday. - Review of Systems Constitutional: No Fever Respiratory: Cough Abdominal/Gastrointestinal: Constipation Objective Exam General Appearance: no apparent distress Neurologic Exam: alert, oriented x 3, cooperative Skin Exam: normal color, warm, dry Respiratory Exam: normal breath sounds, lungs clear, other (L upper chest with bandage in place wiht bright red blood), No crackles/rales, No rhonchi, No wheezing Cardiovascular Exam: regular rate/rhythm, normal heart sounds, No murmur OBJECTIVE DATA Vital Signs: Vital Signs - 24 hr Temp Pulse Resp BP Pulse Ox 12/27/16 08:00 18 12/27/16 06:57 98.1 F 70 18 150/94 95 12/27/16 06:44 67 18 96 12/27/16 01:00 98 F 79 18 128/76 94 L 12/27/16 00:00 18 12/26/16 21:00 98.7 F 90 18 122/67 92 L 12/26/16 20:00 18 12/26/16 18:57 78 18 96 12/26/16 16:21 98.2 F 78 20 138/86 92 L 12/26/16 16:00 18 12/26/16 14:38 71 16 96 12/26/16 12:45 98.2 F 84 18 134/81 95 12/26/16 12:00 18 12/26/16 10:24 68 16 97 Oxygen-Last 24 hours O2 Percentage 2 Liters = 28% O2 Percentage 2 Liters = 28% O2 Percentage 2 Liters = 28% O2 Percentage 2 Liters = 28% O2 Percentage 2 Liters = 28% Pain Assessment - Last Documented Pain Intensity 9 Pain Scale Used 0-10 Pain Scale Intake and Output: Intake & Output 12/24/16 12/25/16 12/26/16 12/27/16 11:59 11:59 11:59 11:59 Intake Total 3420 1080 1340 2311 Output Total 500 400 400 800 Balance 2920 962 615 0752 Weight 96.162 kg 96.162 kg Lab Results: Accuchecks Date 12/27/16 Date 12/26/16 Date 12/26/16 Time 22:00 Time 11:30 Accucheck Value: 169 Accucheck Value: 131 Accucheck Value: 129 Lab Results-Last 24 Hours 12/27/16 12/27/16 Range/Units 05:18 05:18 WBC 7.2 (4.0-10.5) K/mm3 RBC 4.19 (4.1-5.4) M/mm3 Hgb 11.7 L (12.0-16.0) gm/dl Hct 35.6 (35-47) % MCV 85.0 (78-100) fl MCH 27.9 (26-32) pg MCHC 32.9 (32-36) g/dl RDW 13.4 (11.5-14.0) % Plt Count 180 (150-450) K/mm3 MPV 10.5 H (6-9.5) fl Segmented Neutrophils 77 H (36.0-66.0) % Band Neutrophils 1 (0.0-2.0) % Lymphocytes (Manual) 16 L (24-44) % Monocytes (Manual) 6 (0.0-12.0) % Differential Comment NORMAL Platelet Estimate NORMAL (NORMAL) Sodium 141 (136-145) mEq/L Potassium 4.0 (3.5-5.1) mEq/L Chloride 104 (98-107) mEq/L Carbon Dioxide 31.6 (21-32) mEq/L Anion Gap 9.8 (5-15) MEQ/L BUN 13 (9-20) mg/dL Creatinine 0.76 (0.55-1.30) mg/dl Estimated GFR > 60 ML/MIN Glucose 174 H (70-110) MG/DL Calcium 8.5 (8.5-10.1) mg/dL Total Bilirubin 0.20 (0.2-1.0) mg/dL AST 23 (15-37) U/L ALT 42 (12-78) U/L Alkaline Phosphatase 80 (46-116) U/L Serum Total Protein 6.5 (6.4-8.2) gm/dL Albumin 3.3 L (3.4-5.0) g/dL Radiology Exams: Radiology Procedures Category Date Time Status FLUOROSCOPY FOR VENOUS ACCESS Routine Exams 12/25/16 16:19 Completed Multi-Disciplinary Progress Notes: Multi-Disciplinary Progress Notes 12/26/16 10:00 (created 12/26/16 10:07) Case Management Note by Katie Montero DISCHARGE PLAN REVIEWED, PROVIDES SELF CARE, INDEPENDENT WITH ALL ADL'S. DECLINED ADDNL NEEDS FOR DISCHARGE. Initialized on 12/26/16 10:07 - END OF NOTE Assessment/Plan (1) Pneumonia Current Visit: Yes Status: Acute Qualifiers: Pneumonia type: due to unspecified organism Laterality: left Lung location: unspecified part of lung Qualified Code(s): J18.9 - Pneumonia, unspecified organism Assessment & Plan: Treating for PNA with IV antibiotics and will add mucinex as she is not coughing anything up but would like to. However, Chest CT with just atelectasis and no pulmonary emboli. Code(s): J18.9 - PNEUMONIA, UNSPECIFIED ORGANISM (2) Chest pain at rest Current Visit: Yes Status: Acute Assessment & Plan: this is much better. May be able to d/c pt today if her port stops bleeding. Code(s): R07.9 - CHEST PAIN, UNSPECIFIED (3) Diabetes type 2, controlled Current Visit: Yes Status: Chronic Qualifiers: Diabetes mellitus complication status: without complication Diabetes mellitus biosolids management technician insulin use: with biosolids management technician use Qualified Code(s): E11.9 - Type 2 diabetes mellitus without complications; Z79.4 - historian dramatic arts (current) use of insulin Code(s): E11.9 - TYPE 2 DIABETES MELLITUS WITHOUT COMPLICATIONS (4) Hypokalemia Current Visit: Yes Status: Resolved Code(s): E87.6 - HYPOKALEMIA (5) Depression Current Visit: Yes Status: Chronic Qualifiers: Depression Type: major depressive disorder Major depression recurrence: recurrent Active/Remission status: currently active Major depression episode severity: moderate Qualified Code(s): F33.1 - Major depressive disorder, recurrent, moderate Code(s): F32.9 - MAJOR DEPRESSIVE DISORDER, SINGLE EPISODE, UNSPECIFIED (6) History of pulmonary embolism Current Visit: Yes Status: Acute Assessment & Plan: I will look further into this. Certainly she should not be on her estrogen anymore, and this has been discontinued. Code(s): Z86.711 - PERSONAL HISTORY OF PULMONARY EMBOLISM (7) Hypercoagulable state Current Visit: Yes Status: Acute Assessment & Plan: I have no record of th epositive Factor V Leiden test, so will go ahead and order it. Code(s): D68.59 - OTHER PRIMARY THROMBOPHILIA (8) Port catheter in place Current Visit: Yes Status: Acute Assessment & Plan: Will try de-accessing that today, if bleeding is controlled may be able to d/c home. Code(s): Z95.828 - PRESENCE OF OTHER VASCULAR IMPLANTS AND GRAFTS
[2016-12-27] MEDS ORDERED: NON-FORMULARY ITEM PO ONE (09:30)
[2016-12-27] MEDS ORDERED: ENOXAPARIN SODIUM SQ SCH (10:00)
[2016-12-27] MEDS ORDERED: Mucinex 600MG ER Tabs PO SCH (10:00)
[2016-12-27] MEDS ORDERED: DELTASONE 20 MG PO SCH (10:00)
[2016-12-27] MEDS: MAG-OX 400 PO SCH (10:02)
[2016-12-27] MEDS: lamICTAL 100MG TABLET PO SCH (10:03)
[2016-12-27] MEDS: PLAVIX 75 MG Tablet PO SCH (10:04)
[2016-12-27] MEDS: Protonix 40MG Tablet PO SCH (10:04)
[2016-12-27] MEDS: ZOLOFT 50 MG TABLET PO SCH (10:04)
[2016-12-27] MEDS: Flonase NASAL NS SCH (10:05)
[2016-12-27] MEDS: Neurontin 400 MG PO SCH ×2 (10:05→14:11)
[2016-12-27] MEDS: SYNTHROID 100 MCG PO SCH (10:05)
[2016-12-27] MEDS: ARIPIPRAZOLE 2 MG PO SCH (10:06)
[2016-12-27] MEDS: solu-MEDROL 125 MG IV SCH (10:08)
[2016-12-27 11:00] VITALS: O2SAT 97
--- NOTE | 2016-12-27 14:43 | PCM.DS ---
Discharge Summary Date of Admission: 12/21/16 16:06 Admitting Physician: ERICA BROCK Consults: Consults on Case 12/25/16 08:49 Consult Surgery ROUTINE Primary Care Provider: ERICA BROCK Allergies Allergies aspirin Allergy (Mild, Verified 10/25/16 14:12) codeine [Codeine] Allergy (Mild, Verified 10/25/16 14:12) fluoxetine HCl [From Prozac] Allergy (Mild, Verified 10/25/16 14:12) Penicillins Allergy (Mild, Verified 10/25/16 14:12) promethazine HCl [From Phenergan] Allergy (Mild, Verified 12/21/16 23:51) tremors doxycycline hyclate [From Vibra-Tabs] Adverse Reaction (Verified 10/25/16 14:12) steroid from breathing treatment Allergy (Uncoded 10/25/16 14:12) Hospital Summary - Hospital Course Hospital Course: Pt admitted with SOB, found to have L sided infiltrate. CT done and pt without pulmonary emboli. No PNA on CXR, but treated with abx due to improvement of sx on abx and steroids. Pt had CP initially, this improved with treatment. Pt had sought emergency medical treatment earlier in the week and got an IO - she requested different IV access and had a port placed by Dr. Cui. The port had some bleeding due to pt on lovenox and plavix. Today the port is not bleeding and she is being discharged home. Still having some cough, chest discomfort is better. Up out of bed and walking around. Tolerating po. Pt home on po cefdinir and prednisone. She had a hx of PE and she states she has a Factor V Leiden deficiency. I have no record of this (it was done by doctor in [place]). Will retest for that today then send pt home. May need her to f/u with hematology. Also, stopping her estrogen. - Vitals & Intake/Output Vital Signs: Vital Signs Temperature 98 F 12/27/16 13:02 Pulse Rate 84 12/27/16 13:02 Respiratory Rate 17 12/27/16 13:02 Blood Pressure 150/94 12/27/16 13:02 O2 Sat by Pulse Oximetry 97 12/27/16 10:58 Oxygen-Last Documented O2 Percentage 2 Liters = 28% Intake & Output: Intake & Output 12/25/16 12/26/16 12/27/16 12/28/16 11:59 11:59 11:59 11:59 Intake Total 2231 1340 2311 Output Total 400 400 800 Balance 346 818 3373 Weight 96.162 kg - Lab Result Diagrams: 12/27/16 05:18 12/27/16 05:18 Lab Results-Last 24 Hrs: Accuchecks Date 12/27/16 Date 12/26/16 Time 22:00 Accucheck Value: 169 Accucheck Value: 131 Lab Results-Last 24 Hours 12/27/16 12/27/16 Range/Units 05:18 05:18 WBC 7.2 (4.0-10.5) K/mm3 RBC 4.19 (4.1-5.4) M/mm3 Hgb 11.7 L (12.0-16.0) gm/dl Hct 35.6 (35-47) % MCV 85.0 (78-100) fl MCH 27.9 (26-32) pg MCHC 32.9 (32-36) g/dl RDW 13.4 (11.5-14.0) % Plt Count 180 (150-450) K/mm3 MPV 10.5 H (6-9.5) fl Segmented Neutrophils 77 H (36.0-66.0) % Band Neutrophils 1 (0.0-2.0) % Lymphocytes (Manual) 16 L (24-44) % Monocytes (Manual) 6 (0.0-12.0) % Differential Comment NORMAL Platelet Estimate NORMAL (NORMAL) Sodium 141 (136-145) mEq/L Potassium 4.0 (3.5-5.1) mEq/L Chloride 104 (98-107) mEq/L Carbon Dioxide 31.6 (21-32) mEq/L Anion Gap 9.8 (5-15) MEQ/L BUN 13 (9-20) mg/dL Creatinine 0.76 (0.55-1.30) mg/dl Estimated GFR > 60 ML/MIN Glucose 174 H (70-110) MG/DL Calcium 8.5 (8.5-10.1) mg/dL Total Bilirubin 0.20 (0.2-1.0) mg/dL AST 23 (15-37) U/L ALT 42 (12-78) U/L Alkaline Phosphatase 80 (46-116) U/L Serum Total Protein 6.5 (6.4-8.2) gm/dL Albumin 3.3 L (3.4-5.0) g/dL Micro Results-Entire Visit: Accuchecks Date 12/27/16 Date 12/26/16 Time 22:00 Accucheck Value: 169 Accucheck Value: 131 - Radiology Exams Ordered Rad Exams-Entire Visit: Radiology Procedures Category Date Time Status FLUOROSCOPY FOR VENOUS ACCESS Routine Exams 12/25/16 16:19 Completed - Procedures and Test Procedures and Tests throughout Hospitalization: Therapy Orders & Screens 12/22/16 00:46 Oxygen NASAL CANNULA 2 lpm Comment: Diagnosis: PNUEMONIA 12/22/16 07:42 Respiratory MDI UD Comment: ALBUTEROL PRN Diagnosis: PNUEMONIA 12/22/16 11:00 Respiratory Nebulizer UD Comment: ALBUTEROL QID Diagnosis: PNEUMONIA, chest pain w elevated d dinmer ro PE Discharge Exam General Appearance: no apparent distress, other (done this morning) Neurologic Exam: alert, oriented x 3, cooperative Skin Exam: normal color, warm, dry Respiratory Exam: normal breath sounds, lungs clear, No crackles/rales, No rhonchi, No wheezing Cardiovascular Exam: regular rate/rhythm, normal heart sounds, No murmur Final Diagnosis/Problem List - Final Discharge Diagnosis/Problem (1) Pneumonia Current Visit: Yes Status: Acute Assessment & Plan: Home on omnicef and prednisone. (2) Chest pain at rest Current Visit: Yes Status: Acute Assessment & Plan: much improved. (3) Diabetes type 2, controlled Current Visit: Yes Status: Chronic (4) Hypokalemia Current Visit: Yes Status: Resolved Assessment & Plan: Continue home meds. (5) Depression Current Visit: Yes Status: Chronic Assessment & Plan: stable. (6) History of pulmonary embolism Current Visit: Yes Status: Acute Assessment & Plan: will get the relevant CTs and make sure they are in the pt's record. (7) Hypercoagulable state Current Visit: Yes Status: Acute Assessment & Plan: rechecking Factor V Leiden deficiency (8) Port catheter in place Current Visit: Yes Status: Acute Assessment & Plan: stable now. OK to d/c home per Dr. Renner. - Discharge Disposition: Home, Self-Care Condition: Serious Prescriptions: New Cefdinir 300 mg PO BID #14 capsule Prednisone 20 mg [Deltasone 20 mg] 20 mg PO DAILY #17 tablet Gabapentin 400 mg [Neurontin 400 MG] 1,200 mg PO TID #270 capsule Continue Simvastatin [Zocor] 20 mg PO HS Levothyroxine Sodium 100 Mcg [Synthroid 100 Mcg] 100 mcg PO QAM Diltiazem HCl [Cartia Xt] 180 mg PO QPM Clopidogrel Bisulfate 75 mg [PLAVIX 75 MG Tablet] 75 mg PO DAILY Cyclobenzaprine HCl 10 mg [Cyclobenzaprine 10 MG] 10 mg PO DAILY PRN PRN PRN Reason: muscle cramps/spasms Lamotrigine 100 mg [lamICTAL 100MG TABLET] 200 mg PO BID Bumetanide 1 mg [Bumex 1 mg] 1 mg PO DAILY #30 tablet Diazepam 5 mg [Valium 5 MG] 5 mg PO TIDPRN Trazodone HCl [Oleptro ER] 150 mg PO HS Omeprazole 20 MG [Prilosec 20 mg] 20 mg PO DAILY Triamcinolone Acetonide [Nasacort] 2 sprays IH DAILY Lidocaine HCl 5% Patch [Lidoderm Patch 5%] 1 applic TD DAILY PRN PRN PRN Reason: Pain Pyridoxine HCl 100 mg [Vitamin B-6 (Pyridoxine) 100 MG] 100 mg PO BID Folic Acid 1 mg PO BID Dulaglutide [Trulicity] 0.75 mg SQ WEEKLY Cyanocobalamin (Vitamin B-12) [Vitamin B12] 2,500 mcg PO DAILY Magnesium Oxide 400 mg [Mag-Ox 400] 400 mg PO DAILY #30 tablet Sucralfate 1 gm [Carafate 1 GM] 1 g PO ACHS #28 tablet Aripiprazole 2 mg PO DAILY Propranolol HCl [Propranolol HCl ER] 80 mg PO DAILY Insulin Detemir [Levemir] 7 units SQ DAILY Albuterol Sulfate [Ventolin Hfa] 8 gm IH Q4HPRN PRN PRN Reason: Shortness Of Breath/Wheezing Sertraline HCl 50 mg [Zoloft 50 mg Tablet] 50 mg PO DAILY Hydrocodone/APAP 10/325 mg [[place] 10/325 MG Tablet] 1 tab PO Q6H PRN PRN PRN Reason: Pain Ketoconazole/Hydrocortisone [Xolegel Corepak Gel] 67.7 gm TP DAILY Discontinued Gabapentin [Neurontin] 1,600 mg PO QID Insulin Detemir [Levemir Flexpen] 7 unit SQ QAM Naproxen 500 mg PO DAILY Estradiol [Estrace] 0.5 mg PO DAILY Additional Instructions: Return for mammogram on 02/01/17 at 11:00 as ordered. Follow up with: DMITRIY LOYA [COURTESY STAFF] - 01/05/17 9:15 am KAYLA RIOS [COURTESY STAFF] - 01/08/17 9:50 am ([facility]) ERICA BROCK [Primary Care Provider] - 01/04/17 10:45 am
[2016-12-27 15:15] VITALS: PULSE 73
== END 2016-12-27 16:05 | disposition home or self-care (01) | DRG 194 ==
LOC: ED 12:21 → MED SURG 16:06
PROVIDERS: ADMIT Family Medicine; ATTEND Family Medicine
PROC: 05HN33Z Insertion of Infusion Device into Left Internal Jugular Vein, Percutaneous Approach (ICD-10-PCS; principal; 2016-12-25)
DX: J18.9 Pneumonia, unspecified organism (principal); F33.1 Major depressive disorder, recurrent, moderate; E11.9 Type 2 diabetes mellitus without complications; Z79.4 Long term (current) use of insulin; E87.6 Hypokalemia; Z86.711 Personal history of pulmonary embolism; R79.1 Abnormal coagulation profile; R07.9 Chest pain, unspecified
CPT/HCPCS: 00532; 36000; 36415; 71010; 71260; 77001; 80048; 80053; 81002; 81241; 82962; 83036; 83605; 83735; 83880; 84484; 85025; 85379; 85610; 87040; 93005; 93041; 93970; 94640; 94760; 96365; 99285; C1788; J0456; J0696; J1170; J1642; J1650; J2405; J2550; J2704; J2930; J3010; Q9967; A9270-GY; J7506

== ENCOUNTER 2017-01-22 20:00 | Emergency (ER) | payer OTHER ==
[2017-01-22] MEDS ORDERED: BACTRIM DS TABLET PO STA (21:22)
[2017-01-22] MEDS ORDERED: TYLENOL 325 MG PO STA (21:24)
[2017-01-22] MEDS ORDERED: BACTRIM DS TABLET PO ONE (21:30)
[2017-01-22] MEDS ORDERED: TYLENOL 325 MG ONE (21:30)
[2017-01-22 21:58] VITALS: PULSE 68
--- NOTE | 2017-01-22 22:25 | ERPHSYRPT ---
- History of Present Illness Time Seen by Provider: 01/22/17 21:10 Source: patient Exam Limitations: clinical condition Patient Subjective Stated Complaint: PT states "I have an abscess on my right buttock" Triage Nursing Assessment: Pt alert and oriented X 3, skin pwd pt ambulates without difficulty, able to speak in full sentences. Pt has approx 4 cm X 3 cm slightly red. Physician History: PATIENT WITH A HISTORY OF TYPE 2 DIABETES, CHRONIC LOWE BACK PAIN, SCIATICA AND COPD COMPLAINS OF PAINFUL RIGTH BUTTOCK SWELLING OVER THE PAST 2 DAYS. STATES SHE IS PRESCRIBED 120 TABLETS NORCO BY PAIN SPECIALIST AND OUT OF NORCO FOR 1 WEEK. DENIES FEVER OR CHILLS, Method of Injury: other (NONE) Quality: constant Severity of Pain-Max: mild Severity of Pain-Current: mild Lower Extremities Pain: other: right (BUTTOCK) Modifying Factors: Improves With: other (SITTING) Allergies/Adverse Reactions: aspirin Allergy (Mild, Verified 01/22/17 21:18) codeine [Codeine] Allergy (Mild, Verified 01/22/17 21:18) fluoxetine HCl [From Prozac] Allergy (Mild, Verified 01/22/17 21:18) Penicillins Allergy (Mild, Verified 01/22/17 21:18) promethazine HCl [From Phenergan] Allergy (Mild, Verified 01/22/17 21:18) tremors doxycycline hyclate [From Vibra-Tabs] Adverse Reaction (Verified 01/22/17 21:18) steroid from breathing treatment Allergy (Mild, Uncoded 01/22/17 21:18) Home Medications: Diltiazem HCl [Cartia Xt] 180 mg PO QPM 09/27/14 [History] Levothyroxine Sodium 100 Mcg [Synthroid 100 Mcg] 100 mcg PO QAM 09/27/14 [ History] Simvastatin [Zocor] 20 mg PO HS 09/27/14 [History] Clopidogrel Bisulfate 75 mg [PLAVIX 75 MG Tablet] 75 mg PO DAILY 04/05/15 [History] Cyclobenzaprine HCl 10 mg [Cyclobenzaprine 10 MG] 10 mg PO DAILY PRN PRN 07/16/15 [History] Lamotrigine 100 mg [lamICTAL 100MG TABLET] 200 mg PO BID 09/27/15 [History ] Diazepam 5 mg [Valium 5 MG] 5 mg PO TIDPRN 02/14/16 [History] Lidocaine HCl 5% Patch [Lidoderm Patch 5%] 1 applic TD DAILY PRN PRN 04/20 [History] Omeprazole 20 MG [Prilosec 20 mg] 20 mg PO DAILY 04/20/16 [History] Trazodone HCl [Oleptro ER] 150 mg PO HS 04/20/16 [History] Triamcinolone Acetonide [Nasacort] 2 sprays IH DAILY 04/20/16 [History] Cyanocobalamin (Vitamin B-12) [Vitamin B12] 2,500 mcg PO DAILY 10/09/16 [History ] Dulaglutide [Trulicity] 0.75 mg SQ WEEKLY 10/09/16 [History] Folic Acid 1 mg PO BID 10/09/16 [History] Pyridoxine HCl 100 mg [Vitamin B-6 (Pyridoxine) 100 MG] 100 mg PO BID 01/18 [History] Albuterol Sulfate [Ventolin Hfa] 8 gm IH Q4HPRN PRN 12/21/16 [History] Aripiprazole 2 mg PO DAILY 12/21/16 [History] Hydrocodone/APAP 10/325 mg [[place] 10/325 MG Tablet] 1 tab PO Q6H PRN PRN 12/21/16 [History] Insulin Detemir [Levemir] 7 units SQ DAILY 12/21/16 [History] Ketoconazole/Hydrocortisone [Xolegel Corepak Gel] 67.7 gm TP DAILY 12/21/16 [ History] Propranolol HCl [Propranolol HCl ER] 80 mg PO DAILY 12/21/16 [History] Sertraline HCl 50 mg [Zoloft 50 mg Tablet] 50 mg PO DAILY 12/21/16 [History] Hx Tetanus, Diphtheria Vaccination/Date Given: Yes Hx Influenza Vaccination/Date Given: Yes Hx Pneumococcal Vaccination/Date Given: Yes Immunizations Up to Date: Yes - Review of Systems Constitutional: No Symptoms Musculoskeletal: Other (RIGHT BUTTOCK PAINFUL SWELLING) Neurological: No Symptoms Psychological: No Symptoms - Past Medical History Pertinent Past Medical History: Yes Neurological History: Epilepsy, Seizures, Stroke ENT History: No Pertinent History Cardiac History: Hypertension, Other Respiratory History: Asthma Endocrine Medical History: Diabetes Type I, Hypothyroidism Musculoskeletal History: Other GI Medical History: GERD, Hernia History: No Pertinent History Psycho-Social History: Anxiety, Bipolar, Depression, Panic Disorder Female Reproductive Disorders: Endometriosis Other Medical History: A FIB, MVP W/ REGURGITATION, HTN; HX R KNEE PN\\. home 02 - Past Surgical History Past Surgical History: Yes Neuro Surgical History: No Pertinent History Cardiac: Cardiac Catheterization Respiratory: No Pertinent History Gastrointestinal: Cholecystectomy, Hernia Repair Genitourinary: No Pertinent History Musculoskeletal: Joint Replacement, Orthopedic Surgery Female Surgical History: Hysterectomy Other Surgical History: torn miniscus and implant-RT KNEE" partial scope replacement" - Social History Smoking Status: Former smoker How long have you smoked: 25 Exposure to second hand smoke: Yes Alcohol Use: None Drug Use: none Patient Lives Alone: No Significant Family History: no pertinent family hx, heart disease, diabetes, hypertension - Female History Hx Last Menstrual Period: total histerectomy Hx Now: No - Nursing Vital Signs Nursing Vital Signs: Initial Vital Signs Temperature 98.7 F 01/22/17 21:10 Pulse Rate 76 01/22/17 21:10 Respiratory Rate 18 01/22/17 21:10 Blood Pressure 127/73 01/22/17 21:10 O2 Sat by Pulse Oximetry 98 01/22/17 21:10 Pain Scale Pain Intensity 10 - Physical Exam General Appearance: no apparent distress Neck Exam: non-tender, supple Cardiovascular/Respiratory Exam: chest non-tender Gastrointestinal/Abdominal Exam: non-tender, guarding Hips Exam: right: other (THERE IS A 1CM X 1CM NONFLUCATUANT SWELLING RIGHT BUTTOCK MID MEDIAL ASPECT NO ERYTHEM NOTED, MINIMAL SWELLLING) SpO2: 99 Oxygen Delivery: Room Air - Course EKG Interpreted by Me: RATE, Sinus Rhythm, NORMAL AXIS Ordered Tests: Active Orders 24 hr Category Date Time Status EKG-ER Only STAT Care 01/22/17 21:45 Active Medication Summary Discontinued Medications Generic Name Dose Route Start Last Admin Trade Name Freq PRN Reason Stop Dose Admin Acetaminophen 650 mg 01/22/17 21:24 01/22/17 21:31 Tylenol 325 Mg PO 01/22/17 21:25 650 mg STAT STA Administration Acetaminophen Confirm 01/22/17 21:30 Tylenol 325 Mg Administered 01/22/17 21:31 Dose 650 mg .ROUTE .STK-MED ONE Trimethoprim/Sulfamethoxazole 1 tab 01/22/17 21:22 01/22/17 21:31 Bactrim Ds Tablet PO 01/22/17 21:23 1 tab STAT STA Administration Trimethoprim/Sulfamethoxazole Confirm 01/22/17 21:30 Bactrim Ds Tablet Administered 01/22/17 21:31 Dose 1 tab PO .STK-MED ONE - Progress Progress Note: 01/22/17 22:28 ADMINISTERED BACTRIM DS AND TYLENOL 650MG ORALLY, PATIENT COMPLAINS OF CHEST TIGHTNESS, APPEARS IN NO DISTRESS, EKG C/W NSR RATE 67 NO ECTOPY OR ISCHEMIC CHANGES. Counseled pt/family regarding: lab results, diagnosis, need for follow-up - Departure Time of Disposition: 22:34 Departure Disposition: Home Clinical Impression: FURUNCLE RIGHT BUTTOCK Condition: Stable Critical Care Time: No Referrals: ERICA BROCK [Primary Care Provider] - Additional Instructions: ANTIBIOTIC BACTRIM DS TWICE DAILY FOR 10 DAYS. TYLENOL EVERY 4 HOURS FOR PAIN. CONSULT YOUR PAIN SPECIALIST FOR REFILL OF NORCO PAIN MEDICATIONS. FOLLOWUP WITH YOUR FAMILY PHYSICIAN IN 1 WEEK. Prescriptions: Smz/Tmp Ds Tablet [Bactrim Ds Tablet] 1 udtab PO BID #20 tablet
[2017-01-22 22:49] VITALS: BP 112/74; O2SAT 98
== END 2017-01-22 22:50 | disposition home or self-care (01) ==
LOC: ED 20:00
DX: L02.32 Furuncle of buttock (principal)
CPT/HCPCS: 93005; 99283; 99284; A9270-GY

== ENCOUNTER 2017-02-01 16:25 | Emergency (ER) | payer OTHER ==
[2017-02-01] MEDS ORDERED: Vistaril 50 MG/ML IM ONE ×2 (16:48→16:53)
[2017-02-01] MEDS ORDERED: Sodium Chloride 0.9% 1000 ML 1,000 ML IV STA (16:48)
[2017-02-01] MEDS ORDERED: Sodium Chloride 0.9% 1000 ML 1,000 ML ONE (16:53)
--- NOTE | 2017-02-01 16:54 | ERPHSYRPT ---
- History of Present Illness Time Seen by Provider: 02/01/17 16:43 Source: patient Patient Subjective Stated Complaint: PT REPORTS HAVING A SEIZURE TODAY-STATES THAT SHE HURTS ALL OVER-FEELS LIKE SHE CAN'T GET A GOOD BREATH-DENIES FALL OR INJURY WITH SEIZURE Triage Nursing Assessment: PT PALE WARM ET DRY-AMBULATORY TO ED ROOM-RESP EASY ET NONLABORED-LUNGS CLEAR-PT ANSWERING ALL QUESTIONS CORRECTLY-PUPILS RESPONSIVE -MOVING ALL EXTREMITIES WITH EASE Physician History: CC: seizure, shaking, trouble breathing Hx: 41 y/o patient of Dr alfaro with long past hx on many medications. She reports falling a day or so ago. She fell again today without injury. She apparently had seizure. She has been shaking. She has feeling of trouble breathing thru her throat which feels closed. No new meds or bites or stings. No rash. No abd pain. Prior hysterectomy. She takes plavix. Timing/Duration: today Allergies/Adverse Reactions: aspirin Allergy (Mild, Verified 02/01/17 16:36) codeine [Codeine] Allergy (Mild, Verified 02/01/17 16:36) fluoxetine HCl [From Prozac] Allergy (Mild, Verified 02/01/17 16:36) Penicillins Allergy (Mild, Verified 02/01/17 16:36) promethazine HCl [From Phenergan] Allergy (Mild, Verified 02/01/17 16:36) tremors doxycycline hyclate [From Vibra-Tabs] Adverse Reaction (Verified 02/01/17 16:36) steroid from breathing treatment Allergy (Mild, Uncoded 02/01/17 16:36) Home Medications: Diltiazem HCl [Cartia Xt] 180 mg PO QPM 09/27/14 [History] Levothyroxine Sodium 100 Mcg [Synthroid 100 Mcg] 100 mcg PO QAM 09/27/14 [ History] Simvastatin [Zocor] 20 mg PO HS 09/27/14 [History] Clopidogrel Bisulfate 75 mg [PLAVIX 75 MG Tablet] 75 mg PO DAILY 04/05/15 [History] Cyclobenzaprine HCl 10 mg [Cyclobenzaprine 10 MG] 10 mg PO DAILY PRN PRN 07/16/15 [History] Lamotrigine 100 mg [lamICTAL 100MG TABLET] 200 mg PO BID 09/27/15 [History ] Diazepam 5 mg [Valium 5 MG] 5 mg PO TIDPRN 02/14/16 [History] Lidocaine HCl 5% Patch [Lidoderm Patch 5%] 1 applic TD DAILY PRN PRN 04/20 [History] Omeprazole 20 MG [Prilosec 20 mg] 20 mg PO DAILY 04/20/16 [History] Trazodone HCl [Oleptro ER] 150 mg PO HS 04/20/16 [History] Triamcinolone Acetonide [Nasacort] 2 sprays IH DAILY 04/20/16 [History] Cyanocobalamin (Vitamin B-12) [Vitamin B12] 2,500 mcg PO DAILY 10/09/16 [History ] Dulaglutide [Trulicity] 0.75 mg SQ WEEKLY 10/09/16 [History] Folic Acid 1 mg PO BID 10/09/16 [History] Pyridoxine HCl 100 mg [Vitamin B-6 (Pyridoxine) 100 MG] 100 mg PO BID 01/18 [History] Albuterol Sulfate [Ventolin Hfa] 8 gm IH Q4HPRN PRN 12/21/16 [History] Aripiprazole 2 mg PO DAILY 12/21/16 [History] Hydrocodone/APAP 10/325 mg [[place] 10/325 MG Tablet] 1 tab PO Q6H PRN PRN 12/21/16 [History] Insulin Detemir [Levemir] 7 units SQ DAILY 12/21/16 [History] Ketoconazole/Hydrocortisone [Xolegel Corepak Gel] 67.7 gm TP DAILY 12/21/16 [ History] Propranolol HCl [Propranolol HCl ER] 80 mg PO DAILY 12/21/16 [History] Sertraline HCl 50 mg [Zoloft 50 mg Tablet] 50 mg PO DAILY 12/21/16 [History] Hx Tetanus, Diphtheria Vaccination/Date Given: Yes Hx Influenza Vaccination/Date Given: Yes Hx Pneumococcal Vaccination/Date Given: No Immunizations Up to Date: Yes - Review of Systems Constitutional: Fatigue, Malaise, Weakness, No Fever, No Chills Eyes: No Symptoms, No Vision Changes Ears, Nose, & Throat: No Symptoms Respiratory: Dyspnea (throat feels closed), No Cough Cardiac: No Chest Pain, No Edema Abdominal/Gastrointestinal: No Abdominal Pain, No Nausea, No Vomiting, No Diarrhea Skin: No Rash Neurological: No Focal Weakness, No Headache, No Parasthesia All Other Systems: Reviewed and Negative - Past Medical History Pertinent Past Medical History: Yes Neurological History: Epilepsy, Seizures, Stroke ENT History: No Pertinent History Cardiac History: Hypertension, Other Respiratory History: Asthma Endocrine Medical History: Diabetes Type I, Hypothyroidism Musculoskeletal History: Other GI Medical History: GERD, Hernia History: No Pertinent History Psycho-Social History: Anxiety, Bipolar, Depression, Panic Disorder Female Reproductive Disorders: Endometriosis Other Medical History: A FIB, MVP W/ REGURGITATION, HTN; HX R KNEE PN\\. home 02 - Past Surgical History Past Surgical History: Yes Neuro Surgical History: No Pertinent History Cardiac: Cardiac Catheterization Respiratory: No Pertinent History Gastrointestinal: Cholecystectomy, Hernia Repair Genitourinary: No Pertinent History Musculoskeletal: Joint Replacement, Orthopedic Surgery Female Surgical History: Hysterectomy Other Surgical History: torn miniscus and implant-RT KNEE" partial scope replacement" - Social History Smoking Status: Former smoker How long have you smoked: 25 Exposure to second hand smoke: Yes Alcohol Use: None Drug Use: none Patient Lives Alone: No Significant Family History: no pertinent family hx, heart disease, diabetes, hypertension - Female History Hx Now: No - Nursing Vital Signs Nursing Vital Signs: Initial Vital Signs Temperature 98.7 F 02/01/17 16:26 Pulse Rate 86 02/01/17 16:26 Respiratory Rate 18 02/01/17 16:26 Blood Pressure 126/75 02/01/17 16:26 O2 Sat by Pulse Oximetry 96 02/01/17 16:26 Pain Scale Pain Intensity 10 - Physical Exam General Appearance: alert Eye Exam: PERRL/EOMI Ears, Nose, Throat Exam: normal ENT inspection, moist mucous membranes Neck Exam: normal inspection, non-tender, supple, No midline tenderness Respiratory Exam: normal breath sounds Cardiovascular Exam: regular rate/rhythm Gastrointestinal/Abdomen Exam: soft, No tenderness, No distention, No mass, No guarding Back Exam: normal inspection, normal range of motion Extremity Exam: normal inspection, normal range of motion Neurologic Exam: alert, oriented x 3, cooperative, 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 tested, sensation nml, No motor deficits Skin Exam: warm, dry, No rash SpO2 Interpretation: normal SpO2: 96 Oxygen Delivery: Room Air - Course Nursing assessment & vital signs reviewed: Yes - Radiology Exams cxr X-ray Interpretation: Reviewed by me (poor inspriation, mild atelectasis) Ordered Tests: Active Orders 24 hr Category Date Time Status Accucheck STAT Care 02/01/17 16:48 Active Accucheck STAT Care 02/01/17 18:21 Active Machine Package Sealer STAT Care 02/01/17 16:49 Active Cath for Specimen-Straight STAT Care 02/01/17 16:49 Active EKG-ER Only STAT Care 02/01/17 16:48 Active IV Insertion STAT Care 02/01/17 16:48 Active CHEST 1 VIEW (PORTABLE) Stat Exams 02/01/17 18:07 Taken CBC W DIFF Stat Lab 02/01/17 17:15 Completed CK-Creatinine Phosphokinase Stat Lab 02/01/17 17:15 Completed CMP Stat Lab 02/01/17 17:15 Completed ETHYL ALCOHOL Stat Lab 02/01/17 17:15 Completed MAGNESIUM Stat Lab 02/01/17 17:15 Completed TROPONIN Q3H Lab 02/01/17 17:15 Completed TROPONIN Q3H Lab 02/01/17 20:00 Ordered TROPONIN Q3H Lab 02/01/17 23:00 Ordered TROPONIN Q3H Lab 02/02/17 02:00 Ordered TROPONIN Q3H Lab 02/02/17 05:00 Ordered UA W/ MICROSCOPIC Stat Lab 02/01/17 17:15 Completed Urine Triage Profile Stat Lab 02/01/17 17:15 Completed VENOUS BLOOD GAS Urgent Lab 02/01/17 16:54 Completed Respiratory Nebulizer STAT RT 02/01/17 17:07 Completed Medication Summary Discontinued Medications Generic Name Dose Route Start Last Admin Trade Name Freq PRN Reason Stop Dose Admin Albuterol Sulfate 2.5 mg 02/01/17 17:06 02/01/17 17:21 Proventil 2.5 Mg/3 Ml Neb IH 02/01/17 17:07 2.5 mg STAT ONE Administration Albuterol Sulfate Confirm 02/01/17 17:20 Proventil 2.5 Mg/3 Ml Neb Administered 02/01/17 17:21 Dose 2.5 mg IH .STK-MED ONE Hydroxyzine HCl 50 mg 02/01/17 16:48 02/01/17 17:08 Vistaril 50 Mg/Ml IM 02/01/17 16:49 50 mg STAT ONE Administration Hydroxyzine HCl Confirm 02/01/17 16:53 Vistaril 50 Mg/Ml Administered 02/01/17 16:54 Dose 50 mg IM .STK-MED ONE Sodium Chloride 1,000 mls @ 999 mls/hr 02/01/17 16:48 02/01/17 17:08 Sodium Chloride 0.9% 1000 Ml IV 02/01/17 17:48 999 mls/hr .Q1H1M STA Administration Sodium Chloride Confirm 02/01/17 16:53 Sodium Chloride 0.9% 1000 Ml Administered 02/01/17 16:54 Dose 1,000 mls @ ud .ROUTE .STK-MED ONE Lorazepam 1 mg 02/01/17 18:21 02/01/17 18:30 Ativan 2 Mg/1 Ml Vial IV 02/01/17 18:22 1 mg STAT ONE Administration Lorazepam Confirm 02/01/17 18:27 Ativan 2 Mg/1 Ml Vial Administered 02/01/17 18:28 Dose 2 mg .ROUTE .STK-MED ONE Lab/Rad Data: Laboratory Result Diagrams 02/01/17 17:15 02/01/17 17:15 Laboratory Results 02/01/17 02/01/17 02/01/17 Range/Units 17:15 17:15 17:15 WBC (4.0-10.5) K/mm3 RBC (4.1-5.4) M/mm3 Hgb (12.0-16.0) gm/dl Hct (35-47) % MCV (78-100) fl MCH (26-32) pg MCHC (32-36) g/dl RDW (11.5-14.0) % Plt Count (150-450) K/mm3 MPV (6-9.5) fl Gran % (36.0-66.0) % Lymphocytes % (24.0-44.0) % Monocytes % (0.0-12.0) % Eosinophils % (0.00-5.0) % Basophils % (0.0-0.4) % Basophils # (0-0.4) VBG pH (7.32-7.42) VBG pCO2 at Pat Temp (42-55) mm/Hg VBG pO2 at Pat Temp (25-40) mm/Hg VBG HCO3 (22-28) meq/L VBG O2 Sat (Nickie) (95-100) VBG Base Excess (-2.0-2.0) VBG Hemoglobin VBG Carboxyhemoglobin (0.0-6.9) % T HGB POC Potassium (3.5-5.1) Sodium (136-145) mEq/L Potassium (3.5-5.1) mEq/L Chloride (98-107) mEq/L Carbon Dioxide (21-32) mEq/L Anion Gap (5-15) MEQ/L BUN (9-20) mg/dL Creatinine (0.55-1.30) mg/dl Estimated GFR ML/MIN Glucose (70-110) MG/DL Calcium (8.5-10.1) mg/dL Magnesium 2.0 (1.8-2.4) mg/dL Total Bilirubin (0.2-1.0) mg/dL AST (15-37) U/L ALT (12-78) U/L Alkaline Phosphatase (46-116) U/L Creatine Kinase 70 (26-192) U/L Troponin I < 0.017 (0.000-0.056) ng/ml Serum Total Protein (6.4-8.2) gm/dL Albumin (3.4-5.0) g/dL Ur Collection Type Urine Color (YELLOW) Urine Appearance (CLEAR) Urine pH (5-6) Ur Specific [place] (1.005-1.025) Urine Protein (Negative) Urine Ketones (NEGATIVE) Urine Blood (0-5) Laurent/ul Urine Nitrite (NEGATIVE) Urine Bilirubin (NEGATIVE) Urine Urobilinogen (0-1) mg/dL Ur Leukocyte Esterase (NEGATIVE) Urine Microscopic WBC (0-5) /HPF Ur Epithelial Cells (FEW) /HPF Urine Glucose (NEGATIVE) mg/dL Urine Opiates Level NEG. (NEGATIVE) Ur Methadone NEG. (NEGATIVE) Urine Barbiturates NEG. (NEGATIVE) Ur Phencyclidine (PCP) NEG. (NEGATIVE) Urine Amphetamine NEG. (NEGATIVE) U Benzodiazepine Level POS. (NEGATIVE) Urine Cocaine NEG. (NEGATIVE) Urine Marijuana (THC) NEG. (NEGATIVE) Ethyl Alcohol (0.00-0.01) % Specimen Received 02/01/17 02/01/17 02/01/17 Range/Units 17:15 17:15 17:15 WBC 5.4 (4.0-10.5) K/mm3 RBC 4.02 L (4.1-5.4) M/mm3 Hgb 11.2 L (12.0-16.0) gm/dl Hct 35.4 (35-47) % MCV 88.1 (78-100) fl MCH 27.8 (26-32) pg MCHC 31.6 L (32-36) g/dl RDW 14.5 H (11.5-14.0) % Plt Count 162 (150-450) K/mm3 MPV 11.2 H (6-9.5) fl Gran % 47.1 (36.0-66.0) % Lymphocytes % 38.5 (24.0-44.0) % Monocytes % 8.3 (0.0-12.0) % Eosinophils % 5.9 H (0.00-5.0) % Basophils % 0.2 (0.0-0.4) % Basophils # 0.01 (0-0.4) VBG pH (7.32-7.42) VBG pCO2 at Pat Temp (42-55) mm/Hg VBG pO2 at Pat Temp (25-40) mm/Hg VBG HCO3 (22-28) meq/L VBG O2 Sat (Nickie) (95-100) VBG Base Excess (-2.0-2.0) VBG Hemoglobin VBG Carboxyhemoglobin (0.0-6.9) % T HGB POC Potassium (3.5-5.1) Sodium 143 (136-145) mEq/L Potassium 3.7 (3.5-5.1) mEq/L Chloride 107 (98-107) mEq/L Carbon Dioxide 28.3 (21-32) mEq/L Anion Gap 11.6 (5-15) MEQ/L BUN 9 (9-20) mg/dL Creatinine 0.90 (0.55-1.30) mg/dl Estimated GFR > 60 ML/MIN Glucose 89 (70-110) MG/DL Calcium 8.8 (8.5-10.1) mg/dL Magnesium (1.8-2.4) mg/dL Total Bilirubin 0.20 (0.2-1.0) mg/dL AST 14 L (15-37) U/L ALT 21 (12-78) U/L Alkaline Phosphatase 102 (46-116) U/L Creatine Kinase (26-192) U/L Troponin I (0.000-0.056) ng/ml Serum Total Protein 7.1 (6.4-8.2) gm/dL Albumin 4.2 (3.4-5.0) g/dL Ur Collection Type CATH Urine Color YELLOW (YELLOW) Urine Appearance CLEAR (CLEAR) Urine pH 6.0 (5-6) Ur Specific [place] 1.010 (1.005-1.025) Urine Protein NEGATIVE (Negative) Urine Ketones NEGATIVE (NEGATIVE) Urine Blood NEGATIVE (0-5) Laurent/ul Urine Nitrite NEGATIVE (NEGATIVE) Urine Bilirubin NEGATIVE (NEGATIVE) Urine Urobilinogen NORMAL (0-1) mg/dL Ur Leukocyte Esterase TRACE (NEGATIVE) Urine Microscopic WBC 0-2 (0-5) /HPF Ur Epithelial Cells FEW (FEW) /HPF Urine Glucose NEGATIVE (NEGATIVE) mg/dL Urine Opiates Level (NEGATIVE) Ur Methadone (NEGATIVE) Urine Barbiturates (NEGATIVE) Ur Phencyclidine (PCP) (NEGATIVE) Urine Amphetamine (NEGATIVE) U Benzodiazepine Level (NEGATIVE) Urine Cocaine (NEGATIVE) Urine Marijuana (THC) (NEGATIVE) Ethyl Alcohol < 0.010 (0.00-0.01) % Specimen Received 02-01-17 1741 02/01/17 Range/Units 16:54 WBC (4.0-10.5) K/mm3 RBC (4.1-5.4) M/mm3 Hgb (12.0-16.0) gm/dl Hct (35-47) % MCV (78-100) fl MCH (26-32) pg MCHC (32-36) g/dl RDW (11.5-14.0) % Plt Count (150-450) K/mm3 MPV (6-9.5) fl Gran % (36.0-66.0) % Lymphocytes % (24.0-44.0) % Monocytes % (0.0-12.0) % Eosinophils % (0.00-5.0) % Basophils % (0.0-0.4) % Basophils # (0-0.4) VBG pH 7.38 (7.32-7.42) VBG pCO2 at Pat Temp 53 (42-55) mm/Hg VBG pO2 at Pat Temp 36 (25-40) mm/Hg VBG HCO3 31.4 H* (22-28) meq/L VBG O2 Sat (Nickie) 75.4 L (95-100) VBG Base Excess 5.1 H (-2.0-2.0) VBG Hemoglobin 11.8 VBG Carboxyhemoglobin 3.3 (0.0-6.9) % T HGB POC Potassium 3.6 (3.5-5.1) Sodium (136-145) mEq/L Potassium (3.5-5.1) mEq/L Chloride (98-107) mEq/L Carbon Dioxide (21-32) mEq/L Anion Gap (5-15) MEQ/L BUN (9-20) mg/dL Creatinine (0.55-1.30) mg/dl Estimated GFR ML/MIN Glucose (70-110) MG/DL Calcium (8.5-10.1) mg/dL Magnesium (1.8-2.4) mg/dL Total Bilirubin (0.2-1.0) mg/dL AST (15-37) U/L ALT (12-78) U/L Alkaline Phosphatase (46-116) U/L Creatine Kinase (26-192) U/L Troponin I (0.000-0.056) ng/ml Serum Total Protein (6.4-8.2) gm/dL Albumin (3.4-5.0) g/dL Ur Collection Type Urine Color (YELLOW) Urine Appearance (CLEAR) Urine pH (5-6) Ur Specific [place] (1.005-1.025) Urine Protein (Negative) Urine Ketones (NEGATIVE) Urine Blood (0-5) Laurent/ul Urine Nitrite (NEGATIVE) Urine Bilirubin (NEGATIVE) Urine Urobilinogen (0-1) mg/dL Ur Leukocyte Esterase (NEGATIVE) Urine Microscopic WBC (0-5) /HPF Ur Epithelial Cells (FEW) /HPF Urine Glucose (NEGATIVE) mg/dL Urine Opiates Level (NEGATIVE) Ur Methadone (NEGATIVE) Urine Barbiturates (NEGATIVE) Ur Phencyclidine (PCP) (NEGATIVE) Urine Amphetamine (NEGATIVE) U Benzodiazepine Level (NEGATIVE) Urine Cocaine (NEGATIVE) Urine Marijuana (THC) (NEGATIVE) Ethyl Alcohol (0.00-0.01) % Specimen Received - Progress Progress Note: 02/01/17 19:30 Tests are reassuring. She was told and was going to go home but became upset telling nurses she was having a seizure. Nothing to suggest seizure. She felt better after ativan. Called Dr Alfaro. Will release home. Pt agrees. Tests are reassuring. Counseled pt/family regarding: lab results, diagnosis, need for follow-up, rad results - Departure Time of Disposition: 19:31 Departure Disposition: Home Clinical Impression: Seizure Condition: Stable Critical Care Time: No Referrals: ERICA ALFARO [Primary Care Provider] - Instructions: Seizure Disorder -- Adult Additional Instructions: No driving, climbing, swimming, or hot tubs. Call Dr Alfaro tomorrow for follow up. Stay with family tonite. Take your medication as previously directed.
[2017-02-01] MEDS ORDERED: PROVENTIL 2.5 MG/3 ML NEB IH ONE ×2 (17:06→17:20)
[2017-02-01 17:11] LABS: VBG BASE EXCESS 5.1 (-2.0-2.0); VBG CARBOXYHEMOGLOBIN 3.3 % T HGB (0.0-6.9); VBG HCO3- 31.4 meq/L (22-28); VBG HEMOGLOBIN 11.8; VBG O2 SATURATION 75.4 (95-100); VBG POTASSIUM 3.6 (3.5-5.1); VBG pH 7.38 (7.32-7.42)
[2017-02-01 17:36] LABS: BASOPHIL % 0.2 % (0.0-0.4); Eosinophil % 5.9 % (0.00-5.0); Granulocytes % 47.1 % (36.0-66.0); Lymphocytes % 38.5 % (24.0-44.0); Mean Cell Volume 88.1 fl (78-100); Mean Platelet Volume 11.2 fl (6-9.5); Monocytes % 8.3 % (0.0-12.0); Platelet Count 162 K/mm3 (150-450); Red Blood Count 4.02 M/mm3 (4.1-5.4); Red Cell Distribution Width 14.5 % (11.5-14.0); White Blood Count 5.4 K/mm3 (4.0-10.5)
[2017-02-01 17:41] LABS: Collection Type CATH
[2017-02-01 17:42] LABS: Bilirubin NEGATIVE (NEGATIVE); Blood NEGATIVE Ery/ul (0-5); COMPLETE URINE MICROSCOPIC? YES; Glucose NEGATIVE (NEGATIVE); Leukocyte Esterase TRACE (NEGATIVE); Mean Corpuscular Hemoglobin 27.8 pg (26-32)
[2017-02-01 17:48] LABS: ADD URINE CULTURE? NO (NO); Epithelial Cells FEW /HPF (FEW); WBC 0-2 /HPF (0-5)
[2017-02-01 17:59] LABS: ALBUMIN 4.2 g/dL (3.4-5.0); ALKALINE PHOSPHATASE 102 U/L (46-116); ANION GAP 11.6 MEQ/L (5-15); BLOOD UREA NITROGEN 9 mg/dL (9-20); CHLORIDE 107 mEq/L (98-107); Carbon Dioxide 28.3 mEq/L (21-32); ETHYL ALCOHOL < 0.010 % (0.00-0.01); Glucose 89 MG/DL (70-110); Potassium 3.7 mEq/L (3.5-5.1); SGOT/AST 14 U/L (15-37); SGPT/ALT 21 U/L (12-78); SODIUM 143 mEq/L (136-145); Total Protein 7.1 gm/dL (6.4-8.2)
[2017-02-01] MEDS ORDERED: Ativan 2 MG/1 ML VIAL IV ONE (18:21)
[2017-02-01] MEDS ORDERED: Ativan 2 MG/1 ML VIAL ONE (18:27)
[2017-02-01 19:51] VITALS: BP 126/80; PULSE 84; O2SAT 99
--- NOTE | 2017-02-02 08:56 | XRAY ---
Indication: Seizure. Comparison: December 21, 2016. Portable chest again underinflated with minimal bibasilar infiltrates/atelectasis. Remaining lungs clear. Heart is not enlarged. New left-sided Port-A-Cath. Bony thorax intact. Impression: Again underinflated lungs with bibasilar infiltrates/atelectasis. Correlate clinically. New left sided Port-A-Cath without complications.
== END 2017-02-01 19:50 | disposition home or self-care (01) ==
LOC: ED 16:25
DX: R56.9 Unspecified convulsions (principal); Z79.899 Other long term (current) drug therapy; Z79.891 Long term (current) use of opiate analgesic; Z79.4 Long term (current) use of insulin
CPT/HCPCS: 36000; 36415; 36591; 71010; 80053; 80175; 80307; 81000; 82550; 82805; 82962; 83735; 84484; 85025; 93005; 93041; 94640; 96360; 96372; 96374; 96375; 99284; G0481; J1642; J2060; J3410; P9612; A9270-GY

== ENCOUNTER 2017-03-10 16:39 | Inpatient (IN) | payer OTHER ==
--- NOTE | 2017-03-10 16:52 | ERPHSYRPT ---
<MONA ALEMAN. - Last Filed: 03/10/17 19:05> - History of Present Illness Time Seen by Provider: 03/10/17 16:51 Historian: patient Exam Limitations: no limitations Patient Subjective Stated Complaint: chest heaviness since yesterday Triage Nursing Assessment: ambulated to room with assist from . wearing oxygen from home. skin w/d, color normal, resp nonlabored. oxygen at 4L. a/o times three. no edema noted. pulses good. Physician History: The patient is a morbidly obese 41-year-old female accompanied by her complaining of chest tightness since yesterday. She is a very poor historian and has very vague complaints involving multiple organ systems. She has a flat affect talks. She complains of chest tightness and pain with breathing that began yesterday. It hurts to move her chest. She complains of shortness of breath. She complains of chronic nausea. She tried taking her narcotic pain medicines today without relief. She has chronic back pain. She tells me that she has blurred vision. She says her whole body will go numb. Her past medical history is significant for a port catheter that is in place because she is a "hard stick", elevated coagulable state, pulmonary emboli, she states she' s had pneumonia 3 times this year, anxiety, asthma, pseudoseizures, and diabetes. Timing/Duration: yesterday Activities at Onset: none Quality: tightness Location: central Chest Pain Radiation: no radiation Severity of Pain-Max: mild Severity of Pain-Current: mild Modifying Factors: Improves With: nothing Associated Symptoms: nausea, shortness of breath, cough, hurts to breathe Prior Chest Pain/Cardiac Workup: pulmonary embolism Nitro Today/Relief: no nitro taken today Aspirin Treatment Today: no aspirin today Allergies/Adverse Reactions: aspirin Allergy (Mild, Verified 02/01/17 16:36) codeine [Codeine] Allergy (Mild, Verified 02/01/17 16:36) fluoxetine HCl [From Prozac] Allergy (Mild, Verified 02/01/17 16:36) Penicillins Allergy (Mild, Verified 02/01/17 16:36) promethazine HCl [From Phenergan] Allergy (Mild, Verified 02/01/17 16:36) tremors doxycycline hyclate [From Vibra-Tabs] Adverse Reaction (Verified 02/01/17 16:36) steroid from breathing treatment Allergy (Mild, Uncoded 02/01/17 16:36) Home Medications: Diltiazem HCl [Cartia Xt] 180 mg PO QPM 09/27/14 [History] Levothyroxine Sodium 100 Mcg [Synthroid 100 Mcg] 100 mcg PO QAM 09/27/14 [ History] Simvastatin [Zocor] 20 mg PO HS 09/27/14 [History] Clopidogrel Bisulfate 75 mg [PLAVIX 75 MG Tablet] 75 mg PO DAILY 04/05/15 [History] Cyclobenzaprine HCl 10 mg [Cyclobenzaprine 10 MG] 10 mg PO DAILY PRN PRN 07/16/15 [History] Lamotrigine 100 mg [lamICTAL 100MG TABLET] 200 mg PO BID 09/27/15 [History ] Diazepam 5 mg [Valium 5 MG] 5 mg PO TIDPRN 02/14/16 [History] Lidocaine HCl 5% Patch [Lidoderm Patch 5%] 1 applic TD DAILY PRN PRN 04/20 [History] Omeprazole 20 MG [Prilosec 20 mg] 20 mg PO DAILY 04/20/16 [History] Trazodone HCl [Oleptro ER] 150 mg PO HS 04/20/16 [History] Triamcinolone Acetonide [Nasacort] 2 sprays IH DAILY 04/20/16 [History] Cyanocobalamin (Vitamin B-12) [Vitamin B12] 2,500 mcg PO DAILY 10/09/16 [History ] Dulaglutide [Trulicity] 0.75 mg SQ WEEKLY 10/09/16 [History] Folic Acid 1 mg PO BID 10/09/16 [History] Pyridoxine HCl 100 mg [Vitamin B-6 (Pyridoxine) 100 MG] 100 mg PO BID 01/18 [History] Albuterol Sulfate [Ventolin Hfa] 8 gm IH Q4HPRN PRN 12/21/16 [History] Aripiprazole 2 mg PO DAILY 12/21/16 [History] Hydrocodone/APAP 10/325 mg [[place] 10/325 MG Tablet] 1 tab PO Q6H PRN PRN 12/21/16 [History] Insulin Detemir [Levemir] 7 units SQ DAILY 12/21/16 [History] Ketoconazole/Hydrocortisone [Xolegel Corepak Gel] 67.7 gm TP DAILY 12/21/16 [ History] Propranolol HCl [Propranolol HCl ER] 80 mg PO DAILY 12/21/16 [History] Sertraline HCl 50 mg [Zoloft 50 mg Tablet] 50 mg PO DAILY 12/21/16 [History] Hx Tetanus, Diphtheria Vaccination/Date Given: Yes Hx Influenza Vaccination/Date Given: Yes Hx Pneumococcal Vaccination/Date Given: No - Review of Systems Constitutional: No Fever, No Chills Eyes: Vision Changes Ears, Nose, & Throat: No Symptoms Respiratory: Cough, Dyspnea Cardiac: Chest Pain Abdominal/Gastrointestinal: Nausea, No Vomiting Genitourinary Symptoms: No Dysuria Musculoskeletal: Back Pain, No Neck Pain Skin: No Rash Neurological: No Dizziness, No Focal Weakness, No Sensory Changes Psychological: Anxiety, Depression Hematologic/Lymphatic: No Symptoms Immunological/Allergic: No Symptoms All Other Systems: Reviewed and Negative - Past Medical History Pertinent Past Medical History: Yes Neurological History: Epilepsy, Seizures, Stroke ENT History: No Pertinent History Cardiac History: Hypertension, Other Respiratory History: Asthma Endocrine Medical History: Diabetes Type I, Hypothyroidism Musculoskeletal History: Other GI Medical History: GERD, Hernia History: No Pertinent History Psycho-Social History: Anxiety, Bipolar, Depression, Panic Disorder Female Reproductive Disorders: Endometriosis Other Medical History: A FIB, MVP W/ REGURGITATION, HTN; HX R KNEE PN\\. home 02 - Past Surgical History Past Surgical History: Yes Neuro Surgical History: No Pertinent History Cardiac: Cardiac Catheterization Respiratory: No Pertinent History Gastrointestinal: Cholecystectomy, Hernia Repair Genitourinary: No Pertinent History Musculoskeletal: Joint Replacement, Orthopedic Surgery Female Surgical History: Hysterectomy Other Surgical History: torn miniscus and implant-RT KNEE" partial scope replacement" - Social History Smoking Status: Former smoker How long have you smoked: 25 Exposure to second hand smoke: Yes Alcohol Use: None Drug Use: none Patient Lives Alone: No Significant Family History: no pertinent family hx, heart disease, diabetes, hypertension - Female History Hx Now: No - Nursing Vital Signs Nursing Vital Signs: Initial Vital Signs Temperature 98.9 F 03/10/17 16:40 Pulse Rate 78 03/10/17 16:40 Respiratory Rate 16 03/10/17 16:40 Blood Pressure 119/74 03/10/17 16:40 O2 Sat by Pulse Oximetry 98 03/10/17 16:40 Pain Scale Pain Intensity 9 - Physical Exam General Appearance: no apparent distress, alert Eye Exam: PERRL/EOMI, eyes nml inspection Ears, Nose, Throat Exam: normal ENT inspection Neck Exam: normal inspection Respiratory Exam: chest tenderness (reproduces pain), No wheezing Cardiovascular Exam: regular rate/rhythm, normal heart sounds Gastrointestinal/Abdomen Exam: soft, No tenderness, No mass Pelvic Exam: not done Rectal Exam: not done Back Exam: normal inspection, No CVA tenderness, No vertebral tenderness Extremity Exam: normal inspection, normal range of motion Neurologic Exam: alert, oriented x 3, cooperative, normal mood/affect, sensation nml, No motor deficits Skin Exam: normal color, warm, dry SpO2 Interpretation: normal (on 4 L ) SpO2: 98 Oxygen Delivery: Room Air - Course EKG Interpreted by Me: RATE, Sinus Rhythm, NORMAL AXIS, NORMAL INTERVALS, NORMAL QRS, NORMAL ST-T, Other (no change comp to EKG 02/01/17.) - Radiology Exams Chest X-ray Interpretation: Interpreted by me, Other (significant elevation of bilateral hemidiaphragms compared to port chest 02/01/17.) Ordered Tests: Active Orders 24 hr Category Date Time Status Glass Presser STAT Care 03/10/17 19:35 Active EKG-ER Only STAT Care 03/10/17 16:45 Active IV Insertion STAT Care 03/10/17 17:23 Active Oxygen-ED Only NASAL CANNULA 4 lpm Care 03/10/17 17:24 Active Pulse Oximetry (ED) STAT Care 03/10/17 19:35 Active CHEST 2 VIEWS (PA AND LAT) Stat Exams 03/10/17 17:05 Taken CHEST WITH CONTRAST [CT] Stat Exams 03/10/17 18:37 Taken BLOOD CULTURE Stat Lab 03/10/17 19:57 Received CBC W DIFF Stat Lab 03/10/17 17:39 Completed CMP Stat Lab 03/10/17 17:39 Completed Lactic Acid Stat Lab 03/10/17 17:45 Completed Lactic Acid Stat Lab 03/10/17 19:52 Completed TROPONIN Q3H Lab 03/10/17 17:39 Completed TROPONIN Q3H Lab 03/10/17 19:57 Received TROPONIN Q3H Lab 03/10/17 23:15 Ordered TROPONIN Q3H Lab 03/11/17 02:15 Ordered TROPONIN Q3H Lab 03/11/17 05:15 Ordered UA W/RFX UR CULTURE Stat Lab 03/10/17 19:58 Completed Urine Triage Profile Stat Lab 03/10/17 19:58 Received Medication Summary Generic Name Dose Route Start Last Admin Trade Name Freq PRN Reason Stop Dose Admin Sodium Chloride 1,000 mls @ 100 mls/hr 03/10/17 19:45 03/10/17 19:59 Sodium Chloride 0.9% 1000 Ml IV 04/09/17 19:44 100 mls/hr .Q10H LAMONTE Administration Azithromycin 500 mg in 250 mls @ 250 mls/hr 03/10/17 19:35 Zithromax 500 Mg/ 250 Ml Nacl Premix IV 03/10/17 20:34 STAT STA Discontinued Medications Generic Name Dose Route Start Last Admin Trade Name Freq PRN Reason Stop Dose Admin Ceftriaxone Sodium/Dextrose 1 g in 50 mls @ 100 mls/hr 03/10/17 19:35 19:59 Rocephin 1 Gm-D5w 50 Ml Bag IV 03/10/17 20:04 100 mls/hr STAT STA Administration Azithromycin Confirm 03/10/17 19:49 Zithromax 500 Mg/ 250 Ml Nacl Premix Administered 03/10/17 19:50 Dose 500 mg in 250 mls @ ud IV .STK-MED ONE Ceftriaxone Sodium/Dextrose Confirm 03/10/17 19:49 Rocephin 1 Gm-D5w 50 Ml Bag Administered 03/10/17 19:50 Dose 1 g in 50 mls @ ud IV .STK-MED ONE Ondansetron HCl 4 mg 03/10/17 17:05 03/10/17 17:38 Zofran 4 Mg/2 Ml Vial IV 03/10/17 17:06 4 mg STAT ONE Administration Ondansetron HCl Confirm 03/10/17 17:37 Zofran 4 Mg/2 Ml Vial Administered 03/10/17 17:38 Dose 4 mg .ROUTE .STK-MED ONE Potassium Chloride 20 meq 03/10/17 18:20 03/10/17 18:25 Klor Con 10 Meq PO 03/10/17 18:21 20 meq STAT ONE Administration Potassium Chloride Confirm 03/10/17 18:24 Klor Con 10 Meq Administered 03/10/17 18:25 Dose 20 meq PO .STK-MED ONE Lab/Rad Data: Laboratory Result Diagrams 03/10/17 17:39 03/10/17 17:39 Laboratory Results 03/10/17 03/10/17 03/10/17 Range/Units 19:58 19:52 17:45 WBC (4.0-10.5) K/mm3 RBC (4.1-5.4) M/mm3 Hgb (12.0-16.0) gm/dl Hct (35-47) % MCV (78-100) fl MCH (26-32) pg MCHC (32-36) g/dl RDW (11.5-14.0) % Plt Count (150-450) K/mm3 MPV (6-9.5) fl Gran % (36.0-66.0) % Lymphocytes % (24.0-44.0) % Monocytes % (0.0-12.0) % Eosinophils % (0.00-5.0) % Basophils % (0.0-0.4) % Basophils # (0-0.4) Sodium (136-145) mEq/L Potassium (3.5-5.1) mEq/L Chloride (98-107) mEq/L Carbon Dioxide (21-32) mEq/L Anion Gap (5-15) MEQ/L BUN (9-20) mg/dL Creatinine (0.55-1.30) mg/dl Estimated GFR ML/MIN Glucose (70-110) MG/DL Lactic Acid 1.1 2.2 H (0.4-2.0) Calcium (8.5-10.1) mg/dL Total Bilirubin (0.2-1.0) mg/dL AST (15-37) U/L ALT (12-78) U/L Alkaline Phosphatase (46-116) U/L Troponin I (0.000-0.056) ng/ml Serum Total Protein (6.4-8.2) gm/dL Albumin (3.4-5.0) g/dL Ur Collection Type VOID Urine Color YELLOW (YELLOW) Urine Appearance CLEAR (CLEAR) Urine pH 7.0 (5-6) Ur Specific [place] 1.010 (1.005-1.025) Urine Protein NEGATIVE (Negative) Urine Ketones NEGATIVE (NEGATIVE) Urine Blood NEGATIVE (0-5) Laurent/ul Urine Nitrite NEGATIVE (NEGATIVE) Urine Bilirubin NEGATIVE (NEGATIVE) Urine Urobilinogen NORMAL (0-1) mg/dL Ur Leukocyte Esterase NEGATIVE (NEGATIVE) Urine Culture Reflexed NO (NO) Urine Glucose NEGATIVE (NEGATIVE) mg/dL Specimen Received 03/10/17199903/10/17 03/10/17 03/10/17 Range/Units 17:39 17:39 17:39 WBC 7.4 (4.0-10.5) K/mm3 RBC 3.84 L (4.1-5.4) M/mm3 Hgb 11.0 L (12.0-16.0) gm/dl Hct 34.0 L (35-47) % MCV 88.5 (78-100) fl MCH 28.6 (26-32) pg MCHC 32.4 (32-36) g/dl RDW 13.3 (11.5-14.0) % Plt Count 166 (150-450) K/mm3 MPV 10.3 H (6-9.5) fl Gran % 75.0 H (36.0-66.0) % Lymphocytes % 15.1 L (24.0-44.0) % Monocytes % 7.2 (0.0-12.0) % Eosinophils % 2.7 (0.00-5.0) % Basophils % 0.0 (0.0-0.4) % Basophils # 0 (0-0.4) Sodium 141 (136-145) mEq/L Potassium 3.3 L (3.5-5.1) mEq/L Chloride 103 (98-107) mEq/L Carbon Dioxide 32.7 H (21-32) mEq/L Anion Gap 8.2 (5-15) MEQ/L BUN 12 (9-20) mg/dL Creatinine 0.73 (0.55-1.30) mg/dl Estimated GFR > 60 ML/MIN Glucose 137 H (70-110) MG/DL Lactic Acid (0.4-2.0) Calcium 8.5 (8.5-10.1) mg/dL Total Bilirubin 0.20 (0.2-1.0) mg/dL AST 14 L (15-37) U/L ALT 14 (12-78) U/L Alkaline Phosphatase 93 (46-116) U/L Troponin I < 0.017 (0.000-0.056) ng/ml Serum Total Protein 6.7 (6.4-8.2) gm/dL Albumin 3.8 (3.4-5.0) g/dL Ur Collection Type Urine Color (YELLOW) Urine Appearance (CLEAR) Urine pH (5-6) Ur Specific [place] (1.005-1.025) Urine Protein (Negative) Urine Ketones (NEGATIVE) Urine Blood (0-5) Laurent/ul Urine Nitrite (NEGATIVE) Urine Bilirubin (NEGATIVE) Urine Urobilinogen (0-1) mg/dL Ur Leukocyte Esterase (NEGATIVE) Urine Culture Reflexed (NO) Urine Glucose (NEGATIVE) mg/dL Specimen Received - Progress Progress: improved Progress Note: 03/10/17 19:06 Pt care discussed and care transferred to Dr Murguia at 19:10. - Departure Clinical Impression: Pneumonia, Chest pain, rule out acute myocardial infarction Condition: Fair Referrals: ERICA ALFARO [Primary Care Provider] - <KATHI MURGUIA - Last Filed: 03/10/17 20:12> - CT Exams chest CT Interpretation: Tele-radiologist Report (subsegmental atelectasis and or infiltrate in lung bases) - Progress Progress Note: 03/10/17 19:34 Pt was initially seen per Dr Aleman. She has various complaints with tightness, tingling, nausea, malaise. No fever or cough. She is on home oxygen. No nebs. She sees Dr Chris Gutierres. She takes plavix. Allergic to PCN which caused roseola. Lungs diminished with mild cough and rales left base. O2 saturation 98 % on 4L her normal. Await chest CT. 03/10/17 20:10 EKG nonspecific. She is allergic to PCN. Took plavix today already. Blood cultures sent. Rocephin/Zithromax given. Called Dr Kavin Alfaro and will place in obser for repeat tropinin and IV abtx. Counseled pt/family regarding: lab results, diagnosis, need for follow-up, rad results - Departure Time of Disposition: 20:11 Departure Disposition: Observation (Tele) Critical Care Time: No
[2017-03-10] MEDS ORDERED: Zofran 4 MG/2 ML VIAL IV ONE (17:05)
[2017-03-10] MEDS ORDERED: Zofran 4 MG/2 ML VIAL ONE (17:37)
[2017-03-10 17:46] LABS: Eosinophil % 2.7 % (0.00-5.0); Lymphocytes % 15.1 % (24.0-44.0); Mean Cell Volume 88.5 fl (78-100); Mean Corpuscular Hemoglobin 28.6 pg (26-32); Mean Platelet Volume 10.3 fl (6-9.5); Monocytes % 7.2 % (0.0-12.0); Platelet Count 166 K/mm3 (150-450); Red Blood Count 3.84 M/mm3 (4.1-5.4); Red Cell Distribution Width 13.3 % (11.5-14.0); White Blood Count 7.4 K/mm3 (4.0-10.5)
[2017-03-10 18:03] LABS: Lactic Acid 2.2 (0.4-2.0)
[2017-03-10 18:09] LABS: ALBUMIN 3.8 g/dL (3.4-5.0); ALKALINE PHOSPHATASE 93 U/L (46-116); ANION GAP 8.2 MEQ/L (5-15); BLOOD UREA NITROGEN 12 mg/dL (9-20); CHLORIDE 103 mEq/L (98-107); Carbon Dioxide 32.7 mEq/L (21-32); Glucose 137 MG/DL (70-110); Potassium 3.3 mEq/L (3.5-5.1); SGOT/AST 14 U/L (15-37); SGPT/ALT 14 U/L (12-78); SODIUM 141 mEq/L (136-145); Total Protein 6.7 gm/dL (6.4-8.2)
[2017-03-10] MEDS ORDERED: Klor Con 10 MEQ PO ONE ×2 (18:20→18:24)
[2017-03-10] MEDS ORDERED: Zithromax 500 MG/ 250 ML NaCl Premix 500 MG/250 ML IVPB IV STA (19:35)
[2017-03-10] MEDS ORDERED: ROCEPHIN 1 Gm-D5w 50 ml Bag** 1 G/50 ML IVPB IV STA (19:35)
[2017-03-10] MEDS ORDERED: Sodium Chloride 0.9% 1000 ML 1,000 ML IV SCH (19:45)
[2017-03-10] MEDS ORDERED: ROCEPHIN 1 Gm-D5w 50 ml Bag** 1 G/50 ML IVPB IV ONE (19:49)
[2017-03-10] MEDS ORDERED: Sodium Chloride 0.9% 1000 ML 1,000 ML ONE (19:49)
[2017-03-10] MEDS ORDERED: Zithromax 500 MG/ 250 ML NaCl Premix 500 MG/250 ML IVPB IV ONE (19:49)
[2017-03-10 20:06] LABS: ADD URINE CULTURE? NO (NO); Bilirubin NEGATIVE (NEGATIVE); Blood NEGATIVE Ery/ul (0-5); COMPLETE URINE MICROSCOPIC? NO; Collection Type VOID; Glucose NEGATIVE (NEGATIVE); Leukocyte Esterase NEGATIVE (NEGATIVE)
[2017-03-10] MEDS ORDERED: Zofran 4 MG/2 ML VIAL IV PRN (20:49)
[2017-03-10] MEDS ORDERED: DUONEB 0.5-3 MG/3 ml Neb IH PRN (20:49)
[2017-03-10] MEDS ORDERED: TYLENOL 325 MG PO PRN (20:49)
[2017-03-10] MEDS ORDERED: NovoLOG Insulin SQ PRN (20:49)
--- NOTE | 2017-03-10 21:35 | XRAY ---
Indication: Short of breath. Chest tightness. Multiple contiguous axial images obtained through the chest using 80 cc Isovue 370 contrast. Comparison: CT PE study December 21, 2016. New bilateral lower lobe subsegmental atelectasis with superimposed infiltrates not completely excluded. No suspicious pulmonary mass or effusion. Heart is not enlarged. Aorta is normal in course and caliber. New left-sided Port-A-Cath. No pathologic mediastinal/hilar lymphadenopathy. Bony thorax intact. The limited upper abdomen again demonstrates fatty liver. Impression: New bibasilar subsegmental atelectasis with superimposed infiltrates not completely excluded. Stable fatty liver. Comment: Preliminary interpretation was made by [facility]. No discrepancy. CTDI 17.39
--- NOTE | 2017-03-10 21:37 | XRAY ---
Indication: Chest tightness. Comparison: February 01, 2017. PA/lateral chest markedly underinflated today with worsening bibasilar infiltrates/atelectasis. Upper lungs clear. Heart is not enlarged. Again left-sided Port-A-Cath. Bony thorax intact. Impression: Underinflated chest with worsening bibasilar infiltrate/atelectasis.
[2017-03-10] MEDS: Cyclobenzaprine 10 MG PO SCH (22:53)
[2017-03-10] MEDS: Vitamin B-6 (Pyridoxine) 100 MG PO SCH (22:55)
[2017-03-10] MEDS: FOLATE 1 MG PO SCH (22:58)
[2017-03-10] MEDS: ZOCOR 20MG PO SCH (22:58)
[2017-03-10] MEDS: Carafate 1 GM PO SCH (22:58)
[2017-03-10] MEDS: MAG-OX 400 PO SCH (22:58)
[2017-03-10] MEDS: lamICTAL 100MG TABLET PO SCH (22:58)
[2017-03-10] MEDS: Desyrel 150 MG PO SCH (22:58)
[2017-03-10] MEDS: Neurontin 400 MG PO SCH (22:59)
[2017-03-10] MEDS: Valium 5 MG PO PRN (23:08)
[2017-03-10] MEDS: OXYCODONE-ACETAMINOPHEN 10-325 PO PRN (23:09)
[2017-03-10] MEDS: SODIUM CHLORIDE 0.45% W/ 20 mEq KCL 1,000 ML IV SCH (23:10)
[2017-03-11 06:08] LABS: ANION GAP 7.7 MEQ/L (5-15); BLOOD UREA NITROGEN 11 mg/dL (9-20); CHLORIDE 106 mEq/L (98-107); Glucose 119 MG/DL (70-110); Potassium 3.8 mEq/L (3.5-5.1); SODIUM 142 mEq/L (136-145)
[2017-03-11] MEDS: Carafate 1 GM PO SCH ×4 (08:15→21:30)
[2017-03-11] MEDS: OXYCODONE-ACETAMINOPHEN 10-325 PO PRN ×4 (08:31→21:30)
[2017-03-11] MEDS ORDERED: Lidoderm Patch 5% TP PRN (10:14)
[2017-03-11] MEDS: FOLATE 1 MG PO SCH ×2 (10:34→21:30)
[2017-03-11] MEDS: ENOXAPARIN SODIUM SQ SCH (10:34)
[2017-03-11] MEDS: lamICTAL 100MG TABLET PO SCH ×2 (10:35→21:30)
[2017-03-11] MEDS: Neurontin 400 MG PO SCH ×3 (10:36→21:31)
[2017-03-11] MEDS: Levofloxacin 500MG/100ML D5W 500 MG/100 ML BAG IV SCH (10:37)
[2017-03-11] MEDS: Flonase NASAL NS SCH (10:38)
[2017-03-11] MEDS: Vitamin B-6 (Pyridoxine) 100 MG PO SCH ×2 (10:38→21:31)
[2017-03-11] MEDS: Cyclobenzaprine 10 MG PO SCH (12:03)
[2017-03-11] MEDS: PLAVIX 75 MG Tablet PO SCH (12:23)
[2017-03-11] MEDS: SYNTHROID 100 MCG PO SCH (12:23)
[2017-03-11] MEDS: Protonix 40MG Tablet PO SCH (12:23)
[2017-03-11] MEDS: ZOLOFT 50 MG TABLET PO SCH (12:23)
[2017-03-11] MEDS: Vitamin B-12 500 MCG PO SCH (12:24)
[2017-03-11] MEDS: SODIUM CHLORIDE 0.45% W/ 20 mEq KCL 1,000 ML IV SCH (14:29)
[2017-03-11] MEDS: PROVENTIL COMMON CANISTER IH PRN (16:18)
[2017-03-11] MEDS: Valium 5 MG PO PRN (21:29)
[2017-03-11] MEDS: Desyrel 150 MG PO SCH (21:30)
[2017-03-11] MEDS: ZOCOR 20MG PO SCH (21:30)
[2017-03-11] MEDS: MAG-OX 400 PO SCH (21:30)
[2017-03-11] MEDS ORDERED: Zithromax 500 MG/ 250 ML NaCl Premix 500 MG/250 ML IVPB IV SCH (22:00)
[2017-03-11] MEDS ORDERED: ROCEPHIN 1 Gm-D5w 50 ml Bag** 1 G/50 ML IVPB IV SCH (22:00)
[2017-03-12] MEDS: OXYCODONE-ACETAMINOPHEN 10-325 PO PRN ×3 (04:59→19:58)
[2017-03-12] MEDS: PROVENTIL COMMON CANISTER IH PRN (07:30)
[2017-03-12] MEDS: Carafate 1 GM PO SCH ×4 (07:31→21:43)
--- NOTE | 2017-03-12 08:05 | HP ---
HISTORY OF PRESENT ILLNESS: This is a 41 year-old patient of Dr. Alfaro'vannessa who presented to the emergency department complaining of intermittent chest tightness, this has been going on for three to four days. She reports the pain is all over her chest. She reports some nausea with this but no vomiting and also some shortness of breath. She reports she has a history of mitral valve prolapse with regurgitation for which she sees Dr. Armando for and that she has had heart catheterization ten years ago. She also has history of hypoxia and wears 4 liters nasal cannula of oxygen at home and sees Dr. Reji Gutierres for this. She denies any fevers. She reports she has had a cough, no rhinorrhea. REVIEW OF SYSTEMS: No abdominal pain. No lower extremity edema. No rashes. No vomiting. Otherwise review of systems is negative. PAST MEDICAL HISTORY: Diabetes mellitus type 2, bipolar disorder type II. She reports she takes Plavix for blood clots in her lung and that is prescribed by Dr. Alfaro. She reports a history of repeated pneumonia, fibromyalgia, chronic pain, insomnia, history of seizure, hypothyroidism, hypertension. PAST SURGICAL HISTORY: Knee surgery x2, heart catheterization once. MEDICATIONS: Please see the medication list in her chart. ALLERGIES: PENICILLIN, ASPIRIN, CODEINE, DOXYCYCLINE, FLUOXETINE, PROMETHAZINE, STEROID. SOCIAL HISTORY: She reports she quit smoking six months ago. She denies any alcohol use. She lives with her , three daughters and three grandchildren. FAMILY HISTORY: Her mother is living and has skin cancer. Her father is living and has diabetes mellitus type 2. PHYSICAL EXAMINATION: VITAL SIGNS: Temperature current 98.7F, temperature max 98.7F, heart rate 69 to 75, respiratory rate 16 to 18, blood pressure 99 to 109 over 55 to 60. Oxygen saturation 97 to 98% on 4 liters nasal cannula. GENERAL: The patient is sitting up in bed and a pleasant talkative lady in no acute distress. CVS: She has a regular rate and rhythm. No murmurs, gallops or rubs. CHEST: Clear to auscultation bilaterally. No crackles or wheezes. ABDOMEN: Soft, nontender, nondistended with normal bowel sounds. EXTREMITIES: No clubbing, cyanosis or edema. LABORATORY DATA AND TESTS: She reports a chest CT done last night per pulmonary embolism protocol that was read as new bibasilar subsegmental atelectasis with superimposed infiltrates not completely excluded. Stable fatty liver. Chest x-ray was read as underinflated chest with worsening bibasilar infiltrate/atelectasis. White blood cell count was normal. Hemoglobin 11. Potassium 3.3 on admission and 3.8 today. Glucose 119 currently. Serial negative troponins. UA was negative. Urine tox was negative. She has blood cultures in lab. A gram stain on one was read as gram positive ashley. ASSESSMENT AND PLAN: 1) CHEST PAIN: She has ruled out for an acute myocardial infarction with serial troponins, will go ahead and check another EKG. She just had one on admission. 2) BACTERIEMIA: Gram stain was read as a gram-positive ashley. The cultures still in lab at this time. She has been on ceftriaxone and azithromycin since she was admitted. I would like to change her to levofloxacin as she has had multiple hospital admissions and this might cover for gram-positive ashley better. I would use this as she is allergic to penicillin. 3) HYPOTHYROIDISM: Will check the TSH. 4) ANEMIA: Will continue with home medications. 5) CHRONIC PAIN: Continue her home medications. 6) HYPERTENSION: Currently holding her antihypertensive as her blood pressure is on the low end of normal.
[2017-03-12] MEDS: Levofloxacin 500MG/100ML D5W 500 MG/100 ML BAG IV SCH (09:30)
[2017-03-12] MEDS: ENOXAPARIN SODIUM SQ SCH (09:31)
[2017-03-12] MEDS: Vitamin B-12 500 MCG PO SCH (09:32)
[2017-03-12] MEDS: Protonix 40MG Tablet PO SCH (09:33)
[2017-03-12] MEDS: Neurontin 400 MG PO SCH ×3 (09:33→21:43)
[2017-03-12] MEDS: FOLATE 1 MG PO SCH ×2 (09:33→21:43)
[2017-03-12] MEDS: lamICTAL 100MG TABLET PO SCH ×2 (09:33→21:43)
[2017-03-12] MEDS: Vitamin B-6 (Pyridoxine) 100 MG PO SCH ×2 (09:34→21:43)
[2017-03-12] MEDS: ZOLOFT 50 MG TABLET PO SCH (09:34)
[2017-03-12] MEDS: SYNTHROID 100 MCG PO SCH (09:34)
[2017-03-12] MEDS: PLAVIX 75 MG Tablet PO SCH (09:34)
[2017-03-12] MEDS: ARIPIPRAZOLE 2 MG PO SCH (09:38)
[2017-03-12] MEDS: Flonase NASAL NS SCH (09:46)
[2017-03-12] MEDS ORDERED: FLUCELVAX QUAD 2017-2018 SYR IM ONE (10:00)
[2017-03-12] MEDS ORDERED: TRIAMCINOLONE ACETONIDE IH SCH (10:00)
[2017-03-12] MEDS ORDERED: NON-FORMULARY ITEM (Cyanocobalamin (Vitamin B-12) [Vitamin B12] 2,500 MCG) PO SCH (10:00)
[2017-03-12] MEDS: PROVENTIL 2.5 MG/3 ML NEB IH SCH ×3 (11:01→18:50)
--- NOTE | 2017-03-12 14:08 | PCM.NOTE ---
Date and Time: 03/12/17 1402 Subjective Assessment: States she still feels "terrible" but notes chest tightness is better. Having PORTER. Liam some po. Still on 4L NC. Using her inhaler with some relief. - Review of Systems Constitutional: No Fever Respiratory: Short Of Breath Objective Exam General Appearance: no apparent distress, alert Neurologic Exam: oriented x 3, cooperative Skin Exam: normal color, warm, dry Respiratory Exam: diminished breath sounds, No crackles/rales, No rhonchi, No wheezing Cardiovascular Exam: regular rate/rhythm, normal heart sounds, No murmur Extremity Exam: No pedal edema, No swelling Back Exam: normal inspection OBJECTIVE DATA Vital Signs: Vital Signs - 24 hr Temp Pulse Resp BP Pulse Ox 03/12/17 11:22 98.8 F 78 17 95/54 98 03/12/17 11:04 83 18 94 L 03/12/17 07:32 75 16 96 03/12/17 07:22 98.2 F 72 18 102/52 96 03/12/17 04:03 97.9 F 69 16 104/55 98 03/11/17 23:49 98.4 F 73 18 97/64 99 03/11/17 19:31 98.4 F 80 16 104/56 96 03/11/17 19:18 71 16 98 03/11/17 16:18 66 18 99 03/11/17 16:00 98.4 F 70 18 85/52 97 Oxygen-Last 24 hours O2 Percentage 4 Liters = 36% O2 Percentage 4 Liters = 36% O2 Percentage 4 Liters = 36% O2 Percentage 4 Liters = 36% O2 Percentage 4 Liters = 36% O2 Percentage 4 Liters = 36% Pain Assessment - Last Documented Pain Intensity 10 Pain Scale Used 0-10 Pain Scale Intake and Output: Intake & Output 03/10/17 03/11/17 03/12/17 03/13/17 11:59 11:59 11:59 11:59 Intake Total 2843 Output Total 600 Balance 2243 Lab Results: Accuchecks Date 03/12/17 Date 03/12/17 Date 03/11/17 Date 03/11/17 Time 10:57 Time 07:30 Time 16:30 Accucheck Value: 122 Accucheck Value: 116 Accucheck Value: 126 Accucheck Value: 113 Lab Results-Last 24 Hours 03/12/17 Range/Units 05:10 TSH 3rd Generation 1.092 (0.358-3.740) mIU/L Assessment/Plan (1) Chest pain, rule out acute myocardial infarction Current Visit: Yes Status: Acute Assessment & Plan: Negative troponins. Code(s): R07.9 - CHEST PAIN, UNSPECIFIED (2) Pneumonia Current Visit: Yes Status: Acute Qualifiers: Pneumonia type: due to unspecified organism Laterality: bilateral Lung location: lower lobe of lung Qualified Code(s): J18.9 - Pneumonia, unspecified organism Assessment & Plan: On IV levaquin due to positive culture, gram + rods. Culture has been sent out. Code(s): J18.9 - PNEUMONIA, UNSPECIFIED ORGANISM (3) Positive blood culture Current Visit: Yes Status: Acute Assessment & Plan: On IV levaquin. Culture is pending. Code(s): R78.81 - BACTEREMIA (4) Depression Current Visit: No Status: Chronic Qualifiers: Depression Type: major depressive disorder Major depression recurrence: recurrent Active/Remission status: currently active Major depression episode severity: unspecified Qualified Code(s): F33.9 - Major depressive disorder, recurrent, unspecified Assessment & Plan: chronically depressed but stable Code(s): F32.9 - MAJOR DEPRESSIVE DISORDER, SINGLE EPISODE, UNSPECIFIED (5) Diabetes type 2, controlled Current Visit: No Status: Chronic Qualifiers: Diabetes mellitus complication status: with neurologic complications Diabetes mellitus complication detail: with polyneuropathy Diabetes mellitus long term care social worker insulin use: with [facility] use Qualified Code(s): E11.42 - Type 2 diabetes mellitus with diabetic polyneuropathy; Z79.4 - long term care phlebotomist (current) use of insulin; Z79.4 - long term care phlebotomist (current) use of insulin; Z79.4 - [facility] ( current) use of insulin; Z79.4 - long term care phlebotomist (current) use of insulin Code(s): E11.9 - TYPE 2 DIABETES MELLITUS WITHOUT COMPLICATIONS
[2017-03-12] MEDS: SODIUM CHLORIDE 0.45% W/ 20 mEq KCL 1,000 ML IV SCH (19:59)
[2017-03-12] MEDS: Valium 5 MG PO PRN (21:43)
[2017-03-12] MEDS: ZOCOR 20MG PO SCH (21:43)
[2017-03-12] MEDS: MAG-OX 400 PO SCH (21:43)
[2017-03-12] MEDS: Desyrel 150 MG PO SCH (21:43)
[2017-03-13] MEDS: PROVENTIL 2.5 MG/3 ML NEB IH SCH ×3 (07:33→19:07)
[2017-03-13] MEDS: OXYCODONE-ACETAMINOPHEN 10-325 PO PRN ×3 (07:45→22:01)
[2017-03-13] MEDS: Carafate 1 GM PO SCH ×4 (07:45→21:54)
--- NOTE | 2017-03-13 08:42 | PCM.NOTE ---
Date and Time: 03/13/17 0834 Subjective Assessment: She states her breathing is worse and she is having chills. The chills are causing her to have increased lower back pain and she would like to sit in the bathtub. - Review of Systems Constitutional: Chills Musculoskeletal: Back Pain Objective Exam General Appearance: mild distress, alert Neurologic Exam: oriented x 3, cooperative Skin Exam: normal color, warm, dry Respiratory Exam: diminished breath sounds, rhonchi (RLL), No wheezing Cardiovascular Exam: regular rate/rhythm, normal heart sounds, No murmur Extremity Exam: normal inspection Back Exam: normal inspection, other (spine nttp, paraspinal muscles nttp) OBJECTIVE DATA Vital Signs: Vital Signs - 24 hr Temp Pulse Resp BP Pulse Ox 03/13/17 07:35 83 18 99 03/13/17 07:12 98.2 F 84 18 115/67 93 L 03/13/17 04:00 98.8 F 84 16 119/58 99 03/12/17 23:21 98.5 F 80 18 105/62 96 03/12/17 20:00 98.3 F 95 H 18 126/80 96 03/12/17 18:53 77 16 98 03/12/17 16:00 98.3 F 85 17 99/55 97 03/12/17 14:49 78 18 95 03/12/17 11:22 98.8 F 78 17 95/54 98 03/12/17 11:04 83 18 94 L Oxygen-Last 24 hours O2 Percentage 4 Liters = 36% O2 Percentage 4 Liters = 36% O2 Percentage 4 Liters = 36% O2 Percentage 4 Liters = 36% O2 Percentage 4 Liters = 36% Oxygen Flowrate (L/min)-RT 4 Pain Assessment - Last Documented Pain Intensity 10 Pain Scale Used 0-10 Pain Scale Intake and Output: Intake & Output 03/10/17 03/11/17 03/12/17 03/13/17 11:59 11:59 11:59 11:59 Intake Total 2843 3747 Output Total 600 Balance 9463 3747 Lab Results: Accuchecks Date 03/12/17 Date 03/12/17 Date 03/12/17 Time 16:00 Time 10:57 Accucheck Value: 147 Accucheck Value: 102 Accucheck Value: 122 Assessment/Plan (1) Dyspnea Current Visit: Yes Status: Acute Assessment & Plan: checking CXR. Will check D-dimer, although my concern is that it can be elevated due to the pneumonia. Will get an ABG. Code(s): R06.00 - DYSPNEA, UNSPECIFIED (2) Pneumonia Current Visit: Yes Status: Acute Qualifiers: Pneumonia type: due to unspecified organism Laterality: bilateral Lung location: lower lobe of lung Qualified Code(s): J18.9 - Pneumonia, unspecified organism Assessment & Plan: On IV Levaquin. I can hear more rhonchi in RLL this morning - repeat CXR. Her O2 sats are very stable on 4 L O2 NC, but if she keeps c/o SOB and no findings on XR will consult her rotary veneer machine operator, Dr. Gutierres. Code(s): J18.9 - PNEUMONIA, UNSPECIFIED ORGANISM (3) Positive blood culture Current Visit: Yes Status: Acute Assessment & Plan: send out - still pending Code(s): R78.81 - BACTEREMIA (4) Depression Current Visit: No Status: Chronic Qualifiers: Depression Type: major depressive disorder Major depression recurrence: recurrent Active/Remission status: currently active Major depression episode severity: unspecified Qualified Code(s): F33.9 - Major depressive disorder, recurrent, unspecified Code(s): F32.9 - MAJOR DEPRESSIVE DISORDER, SINGLE EPISODE, UNSPECIFIED (5) Diabetes type 2, controlled Current Visit: No Status: Chronic Qualifiers: Diabetes mellitus complication status: with neurologic complications Diabetes mellitus complication detail: with polyneuropathy Diabetes mellitus rat exterminator insulin use: with intermediate use Qualified Code(s): E11.42 - Type 2 diabetes mellitus with diabetic polyneuropathy; Z79.4 - detention (current) use of insulin; Z79.4 - detention (current) use of insulin; Z79.4 - detention ( current) use of insulin; Z79.4 - watermelon harvesting supervisor (current) use of insulin Code(s): E11.9 - TYPE 2 DIABETES MELLITUS WITHOUT COMPLICATIONS (6) Chest pain, rule out acute myocardial infarction Current Visit: Yes Status: Resolved Code(s): R07.9 - CHEST PAIN, UNSPECIFIED
--- NOTE | 2017-03-13 09:25 | XRAY ---
Indication: Short of breath. Comparison: March 10, 2017. PA/lateral chest remains markedly underinflated with worsening bibasilar infiltrates/atelectasis. Remaining heart, lungs, and left-sided Port-A-Cath unremarkable.
[2017-03-13 09:32] LABS: A-aADO2 -26; ARTERIAL BLD GAS O2 SATURATION 99.2 % (95-100); ARTERIAL BLOOD GAS BASE EXCESS 10.4 (-2.0-2.0); ARTERIAL BLOOD GAS FIO2 32 %; ARTERIAL BLOOD GAS PO2 188 mmHg (75-100); ARTERIAL BLOOD GAS pH 7.44 (7.35-7.45)
[2017-03-13 09:33] LABS: ALLEN TEST OK? YES
[2017-03-13] MEDS: FOLATE 1 MG PO SCH ×2 (09:55→21:54)
[2017-03-13] MEDS: ENOXAPARIN SODIUM SQ SCH (09:55)
[2017-03-13] MEDS: Neurontin 400 MG PO SCH ×3 (09:55→21:54)
[2017-03-13] MEDS: Protonix 40MG Tablet PO SCH (09:55)
[2017-03-13] MEDS: SYNTHROID 100 MCG PO SCH (09:55)
[2017-03-13] MEDS: ZOLOFT 50 MG TABLET PO SCH (09:55)
[2017-03-13] MEDS: lamICTAL 100MG TABLET PO SCH ×2 (09:56→21:53)
[2017-03-13] MEDS: Levofloxacin 500MG/100ML D5W 500 MG/100 ML BAG IV SCH (09:56)
[2017-03-13] MEDS: Flonase NASAL NS SCH (09:57)
[2017-03-13] MEDS: Vitamin B-12 500 MCG PO SCH (09:59)
[2017-03-13] MEDS: MERREM IV SCH ×2 (10:00→21:54)
[2017-03-13] MEDS: PLAVIX 75 MG Tablet PO SCH (10:00)
[2017-03-13] MEDS: ARIPIPRAZOLE 2 MG PO SCH (10:00)
[2017-03-13] MEDS: SODIUM CHLORIDE 0.9% IV SCH ×2 (10:00→21:54)
[2017-03-13] MEDS: Vitamin B-6 (Pyridoxine) 100 MG PO SCH ×2 (10:01→22:46)
[2017-03-13] MEDS: SODIUM CHLORIDE 0.45% W/ 20 mEq KCL 1,000 ML IV SCH (14:24)
[2017-03-13] MEDS: Oxycontin 10 MG ER PO PRN (14:34)
[2017-03-13] MEDS: MAG-OX 400 PO SCH (21:54)
[2017-03-13] MEDS: ZOCOR 20MG PO SCH (21:54)
[2017-03-13] MEDS: Desyrel 150 MG PO SCH (21:54)
[2017-03-14] MEDS: MERREM IV SCH ×3 (05:52→22:06)
[2017-03-14] MEDS: SODIUM CHLORIDE 0.9% IV SCH ×3 (05:52→22:06)
[2017-03-14] MEDS: Oxycontin 10 MG ER PO PRN (06:09)
[2017-03-14] MEDS: PROVENTIL 2.5 MG/3 ML NEB IH SCH ×4 (06:47→19:06)
[2017-03-14] MEDS: Carafate 1 GM PO SCH ×4 (08:24→22:05)
[2017-03-14] MEDS: OXYCODONE-ACETAMINOPHEN 10-325 PO PRN ×2 (08:30→22:14)
[2017-03-14] MEDS ORDERED: Colace 100 MG PO PRN (08:54)
[2017-03-14] MEDS ORDERED: Miralax Powder 17GM PACKET PO PRN (08:54)
[2017-03-14] MEDS ORDERED: Dulcolax 10 MG SUPP PR PRN (08:54)
--- NOTE | 2017-03-14 08:57 | PCM.NOTE ---
Date and Time: 03/14/17 08 Subjective Assessment: She states she feels "terrible," still SOB. No BM since her first day here. C/ o lower back pain, this is chronic pain but worse in the hospital. States she needs something else for pain that acts faster than percocet. - Review of Systems Constitutional: No Fever Respiratory: Cough, Short Of Breath Musculoskeletal: Back Pain Objective Exam General Appearance: mild distress, alert Neurologic Exam: oriented x 3, cooperative Skin Exam: normal color, warm, dry Respiratory Exam: normal breath sounds, lungs clear, No crackles/rales, No rhonchi, No wheezing Cardiovascular Exam: regular rate/rhythm, normal heart sounds, No murmur Back Exam: normal inspection OBJECTIVE DATA Vital Signs: Vital Signs - 24 hr Temp Pulse Resp BP Pulse Ox 03/14/17 07:13 98.1 F 89 18 91/55 95 03/14/17 06:49 88 20 96 03/14/17 03:29 99.1 F 89 16 101/59 97 03/14/17 00:00 98.6 F 77 16 96/59 96 03/13/17 20:00 98.7 F 81 17 129/82 97 03/13/17 19:09 82 18 97 03/13/17 16:00 98.2 F 83 18 125/68 03/13/17 13:39 82 18 99 03/13/17 11:13 98.4 F 75 18 94/55 94 L Oxygen-Last 24 hours O2 Percentage 4 Liters = 36% O2 Percentage 4 Liters = 36% O2 Percentage 4 Liters = 36% O2 Percentage 4 Liters = 36% O2 Percentage 4 Liters = 36% Pain Assessment - Last Documented Pain Intensity 10 Pain Scale Used 0-10 Pain Scale Intake and Output: Intake & Output 03/11/17 03/12/17 03/13/17 03/14/17 11:59 11:59 11:59 11:59 Intake Total 3843 3747 2463 Output Total 600 Balance 7823 3747 2463 Lab Results: Accuchecks Date 03/14/17 Date 03/13/17 Time 07:19 Time 22:00 Accucheck Value: 115 Accucheck Value: 104 Accucheck Value: 97 Accucheck Value: 119 Lab Results-Last 24 Hours 10/10/17 10/10/17 Range/Units 09:25 09:35 D-Dimer 486 (0-500) ng/mL Puncture Site RIGHT RADIAL pCO2 53 H (35-45) mmHg pO2 188 H* (75-100) mmHg Base Excess 10.4 H (-2.0-2.0) O2 Saturation 95.0 (94-100) g/dF ABG pH 7.44 (7.35-7.45) ABG HCO3 36.0 H* (22-28) ABG O2 Sat (Measured) 99.2 (95-100) % Naet Test YES A-a Gradient -26 a/A Ratio 1.16 Hemoglobin 10.1 Carboxyhemoglobin 2.6 (0.0-6.9) % THgb Methemoglobin 1.5 (1.4-1.5) % Potassium 3.6 (3.5-5.1) Temperature 37.0 C POC O2 Flow Rate 32 % Radiology Exams: Radiology Procedures Category Date Time Status CHEST 2 VIEWS (PA AND LAT) Routine Exams 03/13/17 Completed Multi-Disciplinary Progress Notes: Multi-Disciplinary Progress Notes 03/13/17 10:22 Pharmacy Note by AFTER SCHOOL TUTOR,PHARM Patient blood culture positive for gram+ rods (probable contaminant due to 1/4 cultures being positive). Currently on Levaquin 500 mg q24h. Addition of Merrem 1g q8h due to lack of clinical improvement with monotherapy. Waiting on reference lab for sensitivity. Thank you! Debbie, on call pharmacy technician Initialized on 03/13/17 10:22 - END OF NOTE Assessment/Plan (1) Pneumonia Current Visit: Yes Status: Acute Qualifiers: Pneumonia type: due to unspecified organism Laterality: bilateral Lung location: lower lobe of lung Qualified Code(s): J18.9 - Pneumonia, unspecified organism Assessment & Plan: On CXR yesterday was worsened, changed from IV levaquin to merropenem. Still not improved clinically so will consult pulmonology. Code(s): J18.9 - PNEUMONIA, UNSPECIFIED ORGANISM (2) Dyspnea Current Visit: Yes Status: Acute Qualifiers: Dyspnea type: shortness of breath Qualified Code(s): R06.02 - Shortness of breath; R06.00 - Dyspnea, unspecified; R06.01 - Orthopnea Code(s): R06.00 - DYSPNEA, UNSPECIFIED (3) Positive blood culture Current Visit: Yes Status: Acute Assessment & Plan: Still out at reference lab. Code(s): R78.81 - BACTEREMIA (4) Depression Current Visit: No Status: Chronic Qualifiers: Depression Type: major depressive disorder Major depression recurrence: recurrent Active/Remission status: currently active Major depression episode severity: unspecified Qualified Code(s): F33.9 - Major depressive disorder, recurrent, unspecified Code(s): F32.9 - MAJOR DEPRESSIVE DISORDER, SINGLE EPISODE, UNSPECIFIED (5) Diabetes type 2, controlled Current Visit: No Status: Chronic Qualifiers: Diabetes mellitus complication status: with neurologic complications Diabetes mellitus complication detail: with polyneuropathy Diabetes mellitus adjunct psychology instructor insulin use: with adjunct psychology instructor use Qualified Code(s): E11.42 - Type 2 diabetes mellitus with diabetic polyneuropathy; Z79.4 - half-way (current) use of insulin; Z79.4 - crop farmers (current) use of insulin; Z79.4 - crop farmers ( current) use of insulin; Z79.4 - half-way (current) use of insulin Code(s): E11.9 - TYPE 2 DIABETES MELLITUS WITHOUT COMPLICATIONS
[2017-03-14] MEDS: ZOLOFT 50 MG TABLET PO SCH (10:51)
[2017-03-14] MEDS: Levofloxacin 500MG/100ML D5W 500 MG/100 ML BAG IV SCH (10:51)
[2017-03-14] MEDS: PLAVIX 75 MG Tablet PO SCH (10:51)
[2017-03-14] MEDS: Neurontin 400 MG PO SCH ×3 (10:51→22:06)
[2017-03-14] MEDS: ENOXAPARIN SODIUM SQ SCH (10:51)
[2017-03-14] MEDS: FOLATE 1 MG PO SCH ×2 (10:52→22:05)
[2017-03-14] MEDS: Vitamin B-12 500 MCG PO SCH (10:52)
[2017-03-14] MEDS: lamICTAL 100MG TABLET PO SCH ×2 (10:52→22:05)
[2017-03-14] MEDS: Protonix 40MG Tablet PO SCH (10:52)
[2017-03-14] MEDS: Flonase NASAL NS SCH (10:53)
[2017-03-14] MEDS: ARIPIPRAZOLE 2 MG PO SCH (10:53)
[2017-03-14] MEDS: SYNTHROID 100 MCG PO SCH (10:53)
[2017-03-14] MEDS: Vitamin B-6 (Pyridoxine) 100 MG PO SCH ×2 (10:54→22:05)
[2017-03-14] MEDS: MORPHINE SULFATE 4 MG INJ IV PRN ×3 (11:13→20:30)
[2017-03-14] MEDS: Desyrel 150 MG PO SCH (22:05)
[2017-03-14] MEDS: ZOCOR 20MG PO SCH (22:05)
[2017-03-14] MEDS: MAG-OX 400 PO SCH (22:05)
[2017-03-14] MEDS: SODIUM CHLORIDE 0.45% W/ 20 mEq KCL 1,000 ML IV SCH (22:14)
[2017-03-15] MEDS: MORPHINE SULFATE 4 MG INJ IV PRN ×3 (02:54→16:19)
[2017-03-15] MEDS: OXYCODONE-ACETAMINOPHEN 10-325 PO PRN ×2 (05:41→20:34)
[2017-03-15] MEDS: MERREM IV SCH ×3 (05:41→22:23)
[2017-03-15] MEDS: SODIUM CHLORIDE 0.9% IV SCH ×3 (05:41→22:23)
[2017-03-15] MEDS: PROVENTIL 2.5 MG/3 ML NEB IH SCH ×4 (06:33→19:16)
[2017-03-15] MEDS: Carafate 1 GM PO SCH ×4 (07:15→22:20)
[2017-03-15 08:33] LABS: BASOPHIL % 0.4 % (0.0-0.4); Eosinophil % 15.9 % (0.00-5.0); Granulocytes % 43.3 % (36.0-66.0); Lymphocytes % 31.9 % (24.0-44.0); Mean Cell Volume 89.6 fl (78-100); Mean Corpuscular Hemoglobin 28.2 pg (26-32); Mean Platelet Volume 10.7 fl (6-9.5); Monocytes % 8.5 % (0.0-12.0); Platelet Count 162 K/mm3 (150-450); Red Blood Count 3.93 M/mm3 (4.1-5.4); Red Cell Distribution Width 13.1 % (11.5-14.0)
[2017-03-15 09:47] LABS: ALBUMIN 3.6 g/dL (3.4-5.0); ALKALINE PHOSPHATASE 86 U/L (46-116); ANION GAP 9.4 MEQ/L (5-15); BLOOD UREA NITROGEN 8 mg/dL (9-20); CHLORIDE 101 mEq/L (98-107); Carbon Dioxide 35.6 mEq/L (21-32); Glucose 93 MG/DL (70-110); Potassium 4.3 mEq/L (3.5-5.1); SGOT/AST 43 U/L (15-37); SGPT/ALT 24 U/L (12-78); SODIUM 142 mEq/L (136-145); Total Protein 7.2 gm/dL (6.4-8.2)
[2017-03-15] MEDS: lamICTAL 100MG TABLET PO SCH ×2 (10:02→22:21)
[2017-03-15] MEDS: Valium 5 MG PO PRN (10:02)
[2017-03-15] MEDS: Neurontin 400 MG PO SCH ×3 (10:02→22:20)
[2017-03-15] MEDS: ZOLOFT 50 MG TABLET PO SCH (10:02)
[2017-03-15] MEDS: Protonix 40MG Tablet PO SCH (10:03)
[2017-03-15] MEDS: Vitamin B-12 500 MCG PO SCH (10:03)
[2017-03-15] MEDS: FOLATE 1 MG PO SCH ×2 (10:03→22:21)
[2017-03-15] MEDS: SYNTHROID 100 MCG PO SCH (10:03)
[2017-03-15] MEDS: ARIPIPRAZOLE 2 MG PO SCH (10:04)
[2017-03-15] MEDS: PLAVIX 75 MG Tablet PO SCH (10:05)
[2017-03-15] MEDS: Levofloxacin 500MG/100ML D5W 500 MG/100 ML BAG IV SCH (10:05)
[2017-03-15] MEDS: ENOXAPARIN SODIUM SQ SCH (10:05)
[2017-03-15] MEDS: SODIUM CHLORIDE 0.45% W/ 20 mEq KCL 1,000 ML IV SCH (10:06)
[2017-03-15] MEDS: Flonase NASAL NS SCH (10:06)
[2017-03-15] MEDS: Vitamin B-6 (Pyridoxine) 100 MG PO SCH ×2 (10:07→23:03)
--- NOTE | 2017-03-15 11:07 | PCM.NOTE ---
Date and Time: 03/15/17 1104 Subjective Assessment: She still c/o feeling "terrible" with pain in the anterior chest. Liam po. Had to call RT for an extra nebulizer tx which she states helped her feel better. - Review of Systems Constitutional: No Fever Respiratory: Cough Cardiac: Chest Pain Objective Exam General Appearance: mild distress, alert Neurologic Exam: oriented x 3, cooperative Skin Exam: normal color, warm Respiratory Exam: normal breath sounds, chest tenderness (sternum), lungs clear , No crackles/rales, No rhonchi, No wheezing Cardiovascular Exam: regular rate/rhythm, normal heart sounds, No murmur Extremity Exam: No pedal edema, No swelling OBJECTIVE DATA Vital Signs: Vital Signs - 24 hr Temp Pulse Resp BP Pulse Ox 03/15/17 07:05 98.1 F 84 16 82/59 97 03/15/17 06:35 69 18 97 03/15/17 03:00 98.8 F 85 16 105/54 95 03/14/17 23:59 98.4 F 84 17 114/55 93 L 03/14/17 19:53 98.4 F 77 17 114/55 95 03/14/17 19:10 72 18 99 03/14/17 16:00 97.9 F 71 18 112/58 97 03/14/17 15:16 74 18 97 03/14/17 11:34 72 18 97 03/14/17 11:20 97.7 F 70 18 111/58 99 Oxygen-Last 24 hours O2 Percentage 4 Liters = 36% O2 Percentage 4 Liters = 36% O2 Percentage 4 Liters = 36% O2 Percentage 4 Liters = 36% O2 Percentage 4 Liters = 36% Pain Assessment - Last Documented Pain Intensity 9 Pain Scale Used 0-10 Pain Scale Intake and Output: Intake & Output 03/12/17 03/13/17 03/14/17 03/15/17 11:59 11:59 11:59 11:59 Intake Total 2843 3747 2463 3465 Output Total 600 Balance 2243 3747 2463 3465 Weight 92.125 kg Lab Results: Accuchecks Date 03/15/17 Date 03/15/17 Date 03/14/17 Date 03/14/17 Date 03/14/17 Time 10:48 Time 07:15 Time 16:30 Time 11:30 Accucheck Value: 106 Accucheck Value: 203 Accucheck Value: 107 Accucheck Value: 94 Accucheck Value: 123 Lab Results-Last 24 Hours 03/15/17 03/15/17 Range/Units 08:15 08:15 WBC 5.0 (4.0-10.5) K/mm3 RBC 3.93 L (4.1-5.4) M/mm3 Hgb 11.1 L (12.0-16.0) gm/dl Hct 35.2 (35-47) % MCV 89.6 (78-100) fl MCH 28.2 (26-32) pg MCHC 31.5 L (32-36) g/dl RDW 13.1 (11.5-14.0) % Plt Count 162 (150-450) K/mm3 MPV 10.7 H (6-9.5) fl Gran % 43.3 (36.0-66.0) % Lymphocytes % 31.9 (24.0-44.0) % Monocytes % 8.5 (0.0-12.0) % Eosinophils % 15.9 H (0.00-5.0) % Basophils % 0.4 (0.0-0.4) % Basophils # 0.02 (0-0.4) Sodium 142 (136-145) mEq/L Potassium 4.3 (3.5-5.1) mEq/L Chloride 101 (98-107) mEq/L Carbon Dioxide 35.6 H (21-32) mEq/L Anion Gap 9.4 (5-15) MEQ/L BUN 8 L (9-20) mg/dL Creatinine 0.72 (0.55-1.30) mg/dl Estimated GFR > 60 ML/MIN Glucose 93 (70-110) MG/DL Calcium 9.4 (8.5-10.1) mg/dL Total Bilirubin 0.10 L (0.2-1.0) mg/dL AST 43 H (15-37) U/L ALT 24 (12-78) U/L Alkaline Phosphatase 86 (46-116) U/L Serum Total Protein 7.2 (6.4-8.2) gm/dL Albumin 3.6 (3.4-5.0) g/dL Assessment/Plan (1) Pneumonia Current Visit: Yes Status: Acute Qualifiers: Pneumonia type: due to unspecified organism Laterality: bilateral Lung location: lower lobe of lung Qualified Code(s): J18.9 - Pneumonia, unspecified organism Assessment & Plan: on meropenem, pulmonology consulted than yadira Code(s): J18.9 - PNEUMONIA, UNSPECIFIED ORGANISM (2) Chest wall tenderness Current Visit: Yes Status: Acute Assessment & Plan: TTP today at sternum - adding steroids for anti-inflammtory purposes (can't take NSAIDs). Code(s): R07.89 - OTHER CHEST PAIN (3) Dyspnea Current Visit: Yes Status: Acute Qualifiers: Dyspnea type: shortness of breath Qualified Code(s): R06.02 - Shortness of breath; R06.00 - Dyspnea, unspecified; R06.01 - Orthopnea Code(s): R06.00 - DYSPNEA, UNSPECIFIED (4) Positive blood culture Current Visit: Yes Status: Acute Assessment & Plan: this was determined to be contamination. Code(s): R78.81 - BACTEREMIA (5) Depression Current Visit: No Status: Chronic Qualifiers: Depression Type: major depressive disorder Major depression recurrence: recurrent Active/Remission status: currently active Major depression episode severity: unspecified Qualified Code(s): F33.9 - Major depressive disorder, recurrent, unspecified Code(s): F32.9 - MAJOR DEPRESSIVE DISORDER, SINGLE EPISODE, UNSPECIFIED (6) Diabetes type 2, controlled Current Visit: No Status: Chronic Qualifiers: Diabetes mellitus complication status: with neurologic complications Diabetes mellitus complication detail: with polyneuropathy Diabetes mellitus penitentiary insulin use: with technician terminal and repeater use Qualified Code(s): E11.42 - Type 2 diabetes mellitus with diabetic polyneuropathy; Z79.4 - detention (current) use of insulin; Z79.4 - detention (current) use of insulin; Z79.4 - detention ( current) use of insulin; Z79.4 - detention (current) use of insulin Code(s): E11.9 - TYPE 2 DIABETES MELLITUS WITHOUT COMPLICATIONS
[2017-03-15] MEDS: Oxycontin 10 MG ER PO PRN (12:08)
--- NOTE | 2017-03-15 12:58 | CONS ---
CONSULT DATE: 03/15/2017 HISTORY: Miss Cerna is a 41 year-old with multiple health problems who has been hospitalized with complaints of some shortness of breath, chest tightness and retrosternal chest pain. The patient had a chest x-ray and CT chest that revealed subsegmental atelectasis mainly due to mucous plugging. She was also evaluated by cardiology and has had negative cardiac work up so far. The patient has been on supplemental oxygen 3 to 4 liters 24 hours a day. She has been on significant narcotic pain medications and was noted to have low blood pressure which responded to fluids. Clinically the patient appears well and does not appear septic. PAST MEDICAL HISTORY: Positive for history of chronic hypoxic respiratory failure, diabetes mellitus, bipolar disorder, recurrent pneumonia, fibromyalgia, chronic pain, insomnia, history of seizures, hypothyroidism. PAST SURGICAL HISTORY: She had knee surgery x2 and cardiac catheterization once. PERSONAL AND SOCIAL HISTORY: Apparently quit smoking six months ago and lives with family. MEDICATIONS: Home and current medications are reviewed. ALLERGIES: PENICILLIN, ASPIRIN, CODEINE, DOXYCYCLINE, FLUOXETINE, PROMETHAZINE, STEROIDS. PHYSICAL EXAMINATION: This is a middle aged woman who appears comfortable. The patient is able to speak full sentences. She does not appear toxic. Vital signs are stable. She was taken off of supplemental oxygen and still maintained 94% saturation on room air. HEENT: The patient is normocephalic. Oral exam shows small oropharynx. NECK: Supple. CVS: First and second heart sounds are normal, regular, rhythmic. RESPIRATORY: Shows diminished breath sounds but fairly clear to auscultation. ABDOMEN: Soft. No edema is noted. LABORATORY DATA AND TESTS: Sodium 142, potassium 4.3, chloride 101, bicarb 35, glucose 93, BUN 18, creatinine 0.7. White blood cell count 5, hemoglobin 11, hematocrit 35, PLT 162,000. Blood cultures are negative. D-dimer is 486. ABG shows pH of 7.44, pCO2 53, pO2 188 on 3 liters nasal cannula. TSH is normal. Chest x-ray and radiology tests were noted. ASSESSMENT: The patient has: 1) Reproducible chest pain on palpation of sternum. This is a 41 year-old woman admitted with retrosternal chest pain which appears more muscular-cutaneous costochondritis in nature? 2) Hypotension probably secondary to narcotic pain medication responded to fluids. 3) Apparent history of chronic hypoxemia maintaining good saturation and will get addressed. 4) Underlying obstructive airways disease? 5) Atelectasis from suboptimal deep breath. 6) Comorbidities listed above. RECOMMENDATIONS: I discussed the case with Dr. Alfaro. I certainly agree it will be beneficial to cut down on narcotics if possible in view of hypotension. Continue supplemental oxygen as needed. Will add incentive spirometry. Repeat x-ray possibly tomorrow to check for atelectasis. Good cough and deep inspiratory effort would certainly help resolve atelectasis. Further recommendations pending clinical improvement otherwise stable from pulmonary standpoint. I will be available in case of any questions. I will follow up in the office.
[2017-03-15] MEDS: solu-MEDROL 40 MG IV SCH ×2 (14:08→22:21)
[2017-03-15] MEDS: ZOCOR 20MG PO SCH (22:20)
[2017-03-15] MEDS: Desyrel 150 MG PO SCH (22:20)
[2017-03-15] MEDS: MAG-OX 400 PO SCH (22:21)
[2017-03-16] MEDS: MORPHINE SULFATE 4 MG INJ IV PRN ×3 (01:54→12:47)
[2017-03-16] MEDS: SODIUM CHLORIDE 0.45% W/ 20 mEq KCL 1,000 ML IV SCH (03:19)
[2017-03-16] MEDS: SODIUM CHLORIDE 0.9% IV SCH (05:36)
[2017-03-16] MEDS: MERREM IV SCH (05:36)
[2017-03-16] MEDS: PROVENTIL 2.5 MG/3 ML NEB IH SCH ×2 (06:54→10:54)
[2017-03-16] MEDS ORDERED: OXYCODONE-ACETAMINOPHEN 10-325 PO PRN (07:06)
[2017-03-16] MEDS: Carafate 1 GM PO SCH ×2 (07:57→11:35)
--- NOTE | 2017-03-16 08:33 | XRAY ---
Indication: Pneumonia. Comparison: March 13, 2017. PA/lateral chest unchanged again demonstrating bibasilar infiltrates/atelectasis, right hemidiaphragm elevation, and left-sided Port-A-Cath. No new cardiopulmonary abnormalities.
--- NOTE | 2017-03-16 08:58 | PCM.DS ---
Discharge Summary Date of Admission: 03/11/17 09:21 Admitting Physician: ERICA BROCK Consults: Consults on Case 03/14/17 08:53 Consult Pulmonology ROUTINE Primary Care Provider: ERICA BROCK Allergies Allergies aspirin Allergy (Mild, Verified 02/01/17 16:36) codeine [Codeine] Allergy (Mild, Verified 02/01/17 16:36) fluoxetine HCl [From Prozac] Allergy (Mild, Verified 02/01/17 16:36) Penicillins Allergy (Mild, Verified 02/01/17 16:36) promethazine HCl [From Phenergan] Allergy (Mild, Verified 02/01/17 16:36) tremors doxycycline hyclate [From Vibra-Tabs] Adverse Reaction (Verified 02/01/17 16:36) steroid from breathing treatment Allergy (Mild, Uncoded 02/01/17 16:36) Hospital Summary - Hospital Course Hospital Course: Pt admitted with chest pain, ruled out for [place]. Had CXR with findings of infiltrates vs atelectasis in bilateral bases (d-dimer negative). She was treated with IV antibiotics for pneumonia. She continued to complain of chest pain and yesterday started having tenderness at the sternum. She was seen by Dr. Hunter yesterday, thank you, and he determined that the findings on CXR were most likely atelectasis. She was started on incentive spirometry. Her O2 sats have been good (she has been on 4L most of the time here, as she is at home ). WBC nl. Will d/c home with short course of anti-inflammatory and f/u with me in 1 wk. F/u with pain management as needed. I will send her home with po antibiotics to finish out 10d course. - Vitals & Intake/Output Vital Signs: Vital Signs Temperature 98.6 F 03/16/17 07:29 Pulse Rate 91 H 03/16/17 07:29 Respiratory Rate 16 03/16/17 07:29 Blood Pressure 111/57 03/16/17 07:29 O2 Sat by Pulse Oximetry 97 03/16/17 07:29 Oxygen-Last Documented O2 Percentage 4 Liters = 36% Intake & Output: Intake & Output 10/10/17 10/11/17 10/12/17 10/13/17 11:59 11:59 11:59 11:59 Intake Total 4688 5554 4050 2292 Output Total 0 Balance 4238 6336 4465 2376 Weight 92.125 kg - Lab Result Diagrams: 03/15/17 08:15 03/15/17 08:15 Lab Results-Last 24 Hrs: Accuchecks Date 03/16/17 Date 03/15/17 Date 03/15/17 Date 03/15/17 Time 07:25 Time 16:06 Time 10:48 Accucheck Value: 164 Accucheck Value: 176 Accucheck Value: 96 Accucheck Value: 106 Lab Results-Last 24 Hours 03/15/17 03/15/17 Range/Units 08:15 08:15 WBC 5.0 (4.0-10.5) K/mm3 RBC 3.93 L (4.1-5.4) M/mm3 Hgb 11.1 L (12.0-16.0) gm/dl Hct 35.2 (35-47) % MCV 89.6 (78-100) fl MCH 28.2 (26-32) pg MCHC 31.5 L (32-36) g/dl RDW 13.1 (11.5-14.0) % Plt Count 162 (150-450) K/mm3 MPV 10.7 H (6-9.5) fl Gran % 43.3 (36.0-66.0) % Lymphocytes % 31.9 (24.0-44.0) % Monocytes % 8.5 (0.0-12.0) % Eosinophils % 15.9 H (0.00-5.0) % Basophils % 0.4 (0.0-0.4) % Basophils # 0.02 (0-0.4) Sodium 142 (136-145) mEq/L Potassium 4.3 (3.5-5.1) mEq/L Chloride 101 (98-107) mEq/L Carbon Dioxide 35.6 H (21-32) mEq/L Anion Gap 9.4 (5-15) MEQ/L BUN 8 L (9-20) mg/dL Creatinine 0.72 (0.55-1.30) mg/dl Estimated GFR > 60 ML/MIN Glucose 93 (70-110) MG/DL Calcium 9.4 (8.5-10.1) mg/dL Total Bilirubin 0.10 L (0.2-1.0) mg/dL AST 43 H (15-37) U/L ALT 24 (12-78) U/L Alkaline Phosphatase 86 (46-116) U/L Serum Total Protein 7.2 (6.4-8.2) gm/dL Albumin 3.6 (3.4-5.0) g/dL Micro Results-Entire Visit: Accuchecks Date 03/16/17 Date 03/15/17 Date 03/15/17 Date 03/15/17 Time 07:25 Time 16:06 Time 10:48 Accucheck Value: 164 Accucheck Value: 176 Accucheck Value: 96 Accucheck Value: 106 - Radiology Exams Ordered Rad Exams-Entire Visit: Radiology Procedures Category Date Time Status CHEST 2 VIEWS (PA AND LAT) Routine Exams 03/16/17 07:00 Completed - Procedures and Test Procedures and Tests throughout Hospitalization: Therapy Orders & Screens 03/12/17 11:00 Respiratory Nebulizer QID Comment: ALBUTEROL QID Diagnosis: pneumonia, chest pain 03/15/17 12:50 Incentive Spirometry Assessmen TID Comment: Diagnosis: PNEUMONIA, FAILED OUTPATIENT 03/16/17 02:52 Respiratory Nebulizer PRN Comment: Diagnosis: PNEUMONIA, FAILED OUTPATIENT Discharge Exam General Appearance: no apparent distress, alert Neurologic Exam: oriented x 3, cooperative Skin Exam: normal color, warm, dry Respiratory Exam: normal breath sounds, lungs clear, No crackles/rales, No rhonchi, No wheezing Cardiovascular Exam: regular rate/rhythm, normal heart sounds, No murmur Extremity Exam: No pedal edema, No swelling Back Exam: normal inspection Final Diagnosis/Problem List - Final Discharge Diagnosis/Problem (1) Pneumonia Current Visit: Yes Status: Acute Assessment & Plan: Will d/c home with 4d of antibiotics. (2) Chest wall tenderness Current Visit: Yes Status: Acute Assessment & Plan: Home on naproxen for likely costochondritis. (3) Dyspnea Current Visit: Yes Status: Acute Assessment & Plan: with atelectasis. Continue IS. (4) Positive blood culture Current Visit: Yes Status: Acute Assessment & Plan: contamination (5) Depression Current Visit: No Status: Chronic (6) Diabetes type 2, controlled Current Visit: No Status: Chronic - Discharge Disposition: Home, Self-Care Condition: Stable Prescriptions: New Naproxen 500 mg [Naprosyn 500 MG] 500 mg PO BID 3 Days #6 tablet Cefdinir 300 mg [Omnicef 300 mg] 300 mg PO BID #8 capsule Continue Simvastatin [Zocor] 20 mg PO HS Levothyroxine Sodium 100 Mcg [Synthroid 100 Mcg] 100 mcg PO QAM Diltiazem HCl [Cartia Xt] 180 mg PO QPM Clopidogrel Bisulfate 75 mg [PLAVIX 75 MG Tablet] 75 mg PO DAILY Cyclobenzaprine HCl 10 mg [Cyclobenzaprine 10 MG] 10 mg PO BID Lamotrigine 100 mg [lamICTAL 100MG TABLET] 200 mg PO BID Bumetanide 1 mg [Bumex 1 mg] 1 mg PO DAILY #30 tablet Diazepam 5 mg [Valium 5 MG] 5 mg PO TIDPRN Trazodone HCl [Oleptro ER] 150 mg PO HS Omeprazole 20 MG [Prilosec 20 mg] 20 mg PO DAILY Triamcinolone Acetonide [Nasacort] 2 sprays IH DAILY Lidocaine HCl 5% Patch [Lidoderm Patch 5%] 1 applic TD DAILY PRN PRN PRN Reason: Pain Pyridoxine HCl 100 mg [Vitamin B-6 (Pyridoxine) 100 MG] 100 mg PO BID Folic Acid 1 mg PO BID Dulaglutide [Trulicity] 0.75 mg SQ WEEKLY Cyanocobalamin (Vitamin B-12) [Vitamin B12] 2,500 mcg PO DAILY Sucralfate 1 gm [Carafate 1 GM] 1 g PO ACHS #28 tablet Aripiprazole 2 mg PO DAILY Propranolol HCl [Propranolol HCl ER] 80 mg PO DAILY Insulin Detemir [Levemir] 7 units SQ DAILY Albuterol Sulfate [Ventolin Hfa] 8 gm IH Q4HPRN PRN PRN Reason: Shortness Of Breath/Wheezing Sertraline HCl 50 mg [Zoloft 50 mg Tablet] 50 mg PO DAILY Gabapentin 400 mg [Neurontin 400 MG] 1,200 mg PO TID #270 capsule Oxycodone HCl/Acetaminophen [Percocet 10-325 mg Tablet] 1 each PO Q4HPRN PRN PRN Reason: Pain Magnesium Oxide 400 mg [Mag-Ox 400] 400 mg PO HS Discontinued Cefdinir 300 mg PO BID #14 capsule Follow up with: ARCENIO HUNTER [ACTIVE STAFF] - 1 Week (2 weeks on D/C ) ERICA BROCK [Primary Care Provider] - 03/20/17 10:15 am Forms: Patient Portal Information
[2017-03-16] MEDS: Neurontin 400 MG PO SCH (10:10)
[2017-03-16] MEDS: Flonase NASAL NS SCH (10:10)
[2017-03-16] MEDS: ENOXAPARIN SODIUM SQ SCH (10:10)
[2017-03-16] MEDS: Levofloxacin 500MG/100ML D5W 500 MG/100 ML BAG IV SCH (10:10)
[2017-03-16] MEDS: PLAVIX 75 MG Tablet PO SCH (10:10)
[2017-03-16] MEDS: solu-MEDROL 40 MG IV SCH (10:10)
[2017-03-16] MEDS: Vitamin B-12 500 MCG PO SCH (10:11)
[2017-03-16] MEDS: FOLATE 1 MG PO SCH (10:11)
[2017-03-16] MEDS: SYNTHROID 100 MCG PO SCH (10:11)
[2017-03-16] MEDS: ZOLOFT 50 MG TABLET PO SCH (10:11)
[2017-03-16] MEDS: Protonix 40MG Tablet PO SCH (10:11)
[2017-03-16] MEDS: ARIPIPRAZOLE 2 MG PO SCH (10:11)
[2017-03-16] MEDS: lamICTAL 100MG TABLET PO SCH (10:11)
[2017-03-16] MEDS: Vitamin B-6 (Pyridoxine) 100 MG PO SCH (10:11)
[2017-03-16 11:38] VITALS: BP 107/62
[2017-03-16 11:39] VITALS: PULSE 91; O2SAT 97
== END 2017-03-16 13:30 | disposition home or self-care (01) | DRG 194 ==
LOC: ED 16:39 → MED SURG 20:30 → OBSVTOIN 03-11 09:21 → MED SURG 03-11 20:30
PROVIDERS: ADMIT Family Medicine; ATTEND Family Medicine
DX: J18.9 Pneumonia, unspecified organism (principal); R78.81 Bacteremia; F33.9 Major depressive disorder, recurrent, unspecified; R07.89 Other chest pain; E03.9 Hypothyroidism, unspecified; D64.9 Anemia, unspecified; G89.29 Other chronic pain; I10 Essential (primary) hypertension; E11.42 Type 2 diabetes mellitus with diabetic polyneuropathy; Z79.4 Long term (current) use of insulin; Z79.899 Other long term (current) drug therapy; M54.5 Low back pain; R06.02 Shortness of breath; R06.01 Orthopnea; Z79.891 Long term (current) use of opiate analgesic; Z79.01 Long term (current) use of anticoagulants
CPT/HCPCS: 36000; 36415; 36600; 71020; 71260; 80048; 80053; 80307; 81002; 82375; 82803; 82962; 83605; 84443; 84484; 85025; 85379; 87040; 87077; 93005; 93041; 93268; 94640; 94760; 94762; 96360; 96374; 99285; G0008; G0378; J0456; J0696; J1650; J1956; J2270; J2405; J2920; 90682; A9270-GY

== ENCOUNTER 2017-04-14 20:11 | Emergency (ER) | payer OTHER ==
[2012-03-13 16:21] VITALS: BP 134/85
== END 2017-04-14 21:05 | disposition left against medical advice (07) ==
LOC: ED 20:11
DX: Z53.9 Procedure and treatment not carried out, unspecified reason (principal)

== ENCOUNTER 2017-04-26 15:37 | Emergency (ER) | payer OTHER ==
[2017-04-26] MEDS ORDERED: MOTRIN 600 MG PO ONE (15:47)
[2017-04-26 15:50] VITALS: BP 155/74; PULSE 86; O2SAT 96
--- NOTE | 2017-04-26 15:51 | ERPHSYRPT ---
- History of Present Illness Time Seen by Provider: 04/26/17 15:44 Source: patient Patient Subjective Stated Complaint: Pt reports "I was asleep and my said I was punching the wall trying to protect my granddaughter". Pt reports that she was asleep when this occurred. Pt reports she took her normal pain medication - Percocet 10's and it did not help with the pain. Pt rates pain 9/ 10. Pt reports that entire hand and forearm hurt. Triage Nursing Assessment: Pt alert, oriented, answers all questions appropriately. Skin pink, warm, dry. Resps non-labored. Pt with bruising and swelling right second knuckle. Pt with limited ROM to fingers. Pt able to move wrist. 2+ radial pulse noted. Cap refill less than 2 seconds. Physician History: CC: right hand injury Hx: 41 y/o patient has right hand injury today. States she was asleep and was punching a wall in her sleep. No other injuries. Hurts to move hand. Prior hysterectomy. She took percocet at home. Allergies/Adverse Reactions: aspirin Allergy (Mild, Verified 04/26/17 15:54) codeine [Codeine] Allergy (Mild, Verified 04/26/17 15:54) fluoxetine HCl [From Prozac] Allergy (Mild, Verified 04/26/17 15:54) Penicillins Allergy (Mild, Verified 04/26/17 15:54) promethazine HCl [From Phenergan] Allergy (Mild, Verified 04/26/17 15:54) tremors doxycycline hyclate [From Vibra-Tabs] Adverse Reaction (Verified 04/26/17 15:54) steroid from breathing treatment Allergy (Mild, Uncoded 04/26/17 15:54) Home Medications: Diltiazem HCl [Cartia Xt] 180 mg PO QPM 09/27/14 [History] Levothyroxine Sodium 100 Mcg [Synthroid 100 Mcg] 100 mcg PO QAM 09/27/14 [ History] Simvastatin [Zocor] 20 mg PO HS 09/27/14 [History] Clopidogrel Bisulfate 75 mg [PLAVIX 75 MG Tablet] 75 mg PO DAILY 04/05/15 [History] Cyclobenzaprine HCl 10 mg [Cyclobenzaprine 10 MG] 10 mg PO BID 07/16/15 [ History] Lamotrigine 100 mg [lamICTAL 100MG TABLET] 200 mg PO BID 09/27/15 [History ] Diazepam 5 mg [Valium 5 MG] 5 mg PO TIDPRN 02/14/16 [History] Lidocaine HCl 5% Patch [Lidoderm Patch 5%] 1 applic TD DAILY PRN PRN 04/20 [History] Omeprazole 20 MG [Prilosec 20 mg] 20 mg PO DAILY 04/20/16 [History] Trazodone HCl [Oleptro ER] 150 mg PO HS 04/20/16 [History] Triamcinolone Acetonide [Nasacort] 2 sprays IH DAILY 04/20/16 [History] Cyanocobalamin (Vitamin B-12) [Vitamin B12] 2,500 mcg PO DAILY 10/09/16 [History ] Dulaglutide [Trulicity] 0.75 mg SQ WEEKLY 10/09/16 [History] Folic Acid 1 mg PO BID 10/09/16 [History] Pyridoxine HCl 100 mg [Vitamin B-6 (Pyridoxine) 100 MG] 100 mg PO BID 01/18 [History] Albuterol Sulfate [Ventolin Hfa] 8 gm IH Q4HPRN PRN 12/21/16 [History] Aripiprazole 2 mg PO DAILY 12/21/16 [History] Insulin Detemir [Levemir] 7 units SQ DAILY 12/21/16 [History] Propranolol HCl [Propranolol HCl ER] 80 mg PO DAILY 12/21/16 [History] Sertraline HCl 50 mg [Zoloft 50 mg Tablet] 50 mg PO DAILY 12/21/16 [History] Magnesium Oxide 400 mg [Mag-Ox 400] 400 mg PO HS 03/10/17 [History] Oxycodone HCl/Acetaminophen [Percocet 10-325 mg Tablet] 1 each PO Q4HPRN PRN 12/18 [History] Hx Tetanus, Diphtheria Vaccination/Date Given: Yes Hx Influenza Vaccination/Date Given: Yes Hx Pneumococcal Vaccination/Date Given: No Immunizations Up to Date: Yes - Review of Systems Constitutional: No Symptoms Musculoskeletal: Injury (right hand), No Back Pain, No Neck Pain Neurological: No Focal Weakness, No Parasthesia - Past Medical History Pertinent Past Medical History: Yes Neurological History: Epilepsy, Seizures, Stroke ENT History: No Pertinent History Cardiac History: Hypertension, Other Respiratory History: Asthma, Pneumonia Endocrine Medical History: Diabetes Type I, Hypothyroidism Musculoskeletal History: Other GI Medical History: GERD, Hernia History: No Pertinent History Psycho-Social History: Anxiety, Bipolar, Depression, Panic Disorder Female Reproductive Disorders: Endometriosis Other Medical History: A FIB, MVP W/ REGURGITATION, HTN; HX R KNEE PN\\. home 02 - Past Surgical History Past Surgical History: Yes Neuro Surgical History: No Pertinent History Cardiac: Cardiac Catheterization Respiratory: No Pertinent History Gastrointestinal: Cholecystectomy, Hernia Repair Genitourinary: No Pertinent History Musculoskeletal: Joint Replacement, Orthopedic Surgery Female Surgical History: Hysterectomy Other Surgical History: torn miniscus and implant-RT KNEE" partial scope replacement" - Social History Smoking Status: Current every day smoker How long have you smoked: 25 Exposure to second hand smoke: No Alcohol Use: None Drug Use: none Patient Lives Alone: No Significant Family History: no pertinent family hx, heart disease, diabetes, hypertension - Female History Hx Last Menstrual Period: post hyst Hx Now: No - Nursing Vital Signs Nursing Vital Signs: Initial Vital Signs Temperature 97.8 F 04/26/17 15:49 Pulse Rate 86 04/26/17 15:49 Respiratory Rate 16 04/26/17 15:49 Blood Pressure 155/74 04/26/17 15:49 O2 Sat by Pulse Oximetry 96 04/26/17 15:49 Pain Scale Pain Intensity 9 - Physical Exam General Appearance: alert Eyes, Ears, Nose, Throat Exam: moist mucous membranes Neck Exam: supple Neuro/Tendon Exam: normal sensation, normal motor functions Mental Status Exam: alert, oriented x 3, cooperative Skin Exam: warm, dry Comments: Right hand tender with some swelling at the 3MCP and bruising. - Course Nursing assessment & vital signs reviewed: Yes - Radiology Exams right hand X-ray Interpretation: Interpreted by me, No Fracture, Nml Alignment Ordered Tests: Active Orders 24 hr Category Date Time Status Cold Application STAT Care 04/26/17 15:47 Active HAND (MINIMUM 3 VIEWS) Stat Exams 04/26/17 15:47 Taken Medication Summary Discontinued Medications Generic Name Dose Route Start Last Admin Trade Name Freq PRN Reason Stop Dose Admin Ibuprofen 600 mg 04/26/17 15:47 04/26/17 15:59 Motrin 600 Mg PO 04/26/17 15:48 600 mg STAT ONE Administration Ibuprofen Confirm 04/26/17 15:58 Motrin 600 Mg Administered 04/26/17 15:59 Dose 600 mg .ROUTE .STK-MED ONE - Progress Progress Note: 04/26/17 16:05 Soft metacarpal wrap with cast padding and estee wrap applied per ERMD. Counseled pt/family regarding: diagnosis, need for follow-up, rad results - Departure Time of Disposition: 16:05 Departure Disposition: Home Clinical Impression: Contusion of right hand Qualifiers: Encounter type: initial encounter Qualified Code(s): S60.221A - Contusion of right hand, initial encounter Condition: Stable Critical Care Time: No Referrals: ERICA ALFARO [Primary Care Provider] - Instructions: Contusion Additional Instructions: SPRAINS/STRAINS/CONTUSIONS 1. Rest the affected area as much as possible for the next few days. 2. Apply ice to the affected area for 20-30 minutes at a time, several times a day. 3. If you receive an elastic wrap, wear it only while awake for comfort and support. Re-wrap the elastic wrap if it feels too tight or too loose. 4. If swelling is present, elevate the affected part above the level of the heart for at least 2 to 3 days. 5. Use splints, slings, or crutches as instructed. 6. Watch for severe swelling, coldness, numbness, and discoloration of the fingers and toes. See your family physician or return to the emergency department if any of these are noted. Use your pain medication as already prescribed. Follow up with Dr Alfaro next week.
[2017-04-26] MEDS ORDERED: MOTRIN 600 MG ONE (15:58)
--- NOTE | 2017-04-26 16:16 | XRAY ---
Indication: Pain following sleeping injury. Comparison: November 09, 2015. 3 views of the right hand obtained. Again no bony, articular, or soft tissue abnormalities.
== END 2017-04-26 16:00 | disposition home or self-care (01) ==
LOC: ED 15:37
DX: S60.221A Contusion of right hand, initial encounter (principal); W22.01XA Walked into wall, initial encounter; Z79.899 Other long term (current) drug therapy; Z79.891 Long term (current) use of opiate analgesic
CPT/HCPCS: 73130; 99284; A9270-GY

== ENCOUNTER 2017-05-08 17:15 | Emergency (ER) | payer OTHER ==
[2017-05-08] MEDS ORDERED: solu-MEDROL 125 MG IV ONE (17:24)
[2017-05-08] MEDS ORDERED: DUONEB 0.5-3 MG/3 ml Neb IH ONE ×2 (17:24→17:36)
--- NOTE | 2017-05-08 17:30 | ERPHSYRPT ---
- History of Present Illness Source: patient Exam Limitations: no limitations Hx Tetanus, Diphtheria Vaccination/Date Given: Yes Hx Influenza Vaccination/Date Given: Yes Hx Pneumococcal Vaccination/Date Given: No <TIM GARCIAS - Last Filed: 05/08/17 19:09> <MARCIANO CUENCA - Last Filed: 05/08/17 20:27> - History of Present Illness Time Seen by Provider: 05/08/17 17:27 Physician History: mild to mod shortness of breath and cough today, no fever, hx pneumonia, on home oxygen, hx dm and previous VT but no stents (TIM GARCIAS) Allergies/Adverse Reactions: aspirin Allergy (Mild, Verified 04/26/17 15:54) codeine [Codeine] Allergy (Mild, Verified 04/26/17 15:54) fluoxetine HCl [From Prozac] Allergy (Mild, Verified 04/26/17 15:54) Penicillins Allergy (Mild, Verified 04/26/17 15:54) promethazine HCl [From Phenergan] Allergy (Mild, Verified 04/26/17 15:54) tremors doxycycline hyclate [From Vibra-Tabs] Adverse Reaction (Verified 04/26/17 15:54) steroid from breathing treatment Allergy (Mild, Uncoded 04/26/17 15:54) Home Medications: Diltiazem HCl [Cartia Xt] 180 mg PO QPM 09/27/14 [History] Levothyroxine Sodium 100 Mcg [Synthroid 100 Mcg] 100 mcg PO QAM 09/27/14 [ History] Simvastatin [Zocor] 20 mg PO HS 09/27/14 [History] Clopidogrel Bisulfate 75 mg [PLAVIX 75 MG Tablet] 75 mg PO DAILY 04/05/15 [History] Cyclobenzaprine HCl 10 mg [Cyclobenzaprine 10 MG] 10 mg PO BID 07/16/15 [ History] Lamotrigine 100 mg [lamICTAL 100MG TABLET] 200 mg PO BID 09/27/15 [History ] Diazepam 5 mg [Valium 5 MG] 5 mg PO TIDPRN 02/14/16 [History] Lidocaine HCl 5% Patch [Lidoderm Patch 5%] 1 applic TD DAILY PRN PRN 04/20 [History] Omeprazole 20 MG [Prilosec 20 mg] 20 mg PO DAILY 04/20/16 [History] Trazodone HCl [Oleptro ER] 150 mg PO HS 04/20/16 [History] Triamcinolone Acetonide [Nasacort] 2 sprays IH DAILY 04/20/16 [History] Cyanocobalamin (Vitamin B-12) [Vitamin B12] 2,500 mcg PO DAILY 10/09/16 [History ] Dulaglutide [Trulicity] 0.75 mg SQ WEEKLY 10/09/16 [History] Folic Acid 1 mg PO BID 10/09/16 [History] Pyridoxine HCl 100 mg [Vitamin B-6 (Pyridoxine) 100 MG] 100 mg PO BID 01/18 [History] Albuterol Sulfate [Ventolin Hfa] 8 gm IH Q4HPRN PRN 12/21/16 [History] Aripiprazole 2 mg PO DAILY 12/21/16 [History] Insulin Detemir [Levemir] 7 units SQ DAILY 12/21/16 [History] Propranolol HCl [Propranolol HCl ER] 80 mg PO DAILY 12/21/16 [History] Sertraline HCl 50 mg [Zoloft 50 mg Tablet] 50 mg PO DAILY 12/21/16 [History] Magnesium Oxide 400 mg [Mag-Ox 400] 400 mg PO HS 03/10/17 [History] Oxycodone HCl/Acetaminophen [Percocet 10-325 mg Tablet] 1 each PO Q4HPRN PRN 12/18 [History] - Review of Systems Constitutional: Weakness, No Fever Eyes: No Symptoms Ears, Nose, & Throat: No Symptoms Respiratory: Cough, Dyspnea, Wheezing Cardiac: No Chest Pain Abdominal/Gastrointestinal: No Symptoms Musculoskeletal: No Back Pain Skin: No Symptoms Neurological: No Symptoms Psychological: No Symptoms <TIM GARCIAS - Last Filed: 05/08/17 19:09> - Past Medical History Pertinent Past Medical History: Yes Neurological History: Epilepsy, Seizures, Stroke ENT History: No Pertinent History Cardiac History: Hypertension, Other Respiratory History: Asthma, Pneumonia Endocrine Medical History: Diabetes Type I, Hypothyroidism Musculoskeletal History: Other GI Medical History: GERD, Hernia History: No Pertinent History Psycho-Social History: Anxiety, Bipolar, Depression, Panic Disorder Female Reproductive Disorders: Endometriosis Other Medical History: A FIB, MVP W/ REGURGITATION, HTN; HX R KNEE PN\\. home 02 - Past Surgical History Past Surgical History: Yes Neuro Surgical History: No Pertinent History Cardiac: Cardiac Catheterization Respiratory: No Pertinent History Gastrointestinal: Cholecystectomy, Hernia Repair Genitourinary: No Pertinent History Musculoskeletal: Joint Replacement, Orthopedic Surgery Female Surgical History: Hysterectomy Other Surgical History: torn miniscus and implant-RT KNEE" partial scope replacement" - Social History Smoking Status: Current every day smoker How long have you smoked: 25 Exposure to second hand smoke: No Alcohol Use: None Drug Use: none Patient Lives Alone: No Significant Family History: no pertinent family hx, heart disease, diabetes, hypertension - Female History Hx Now: No (unknown) <TIM GARCIAS - Last Filed: 05/08/17 19:09> - Physical Exam General Appearance: no apparent distress Eye Exam: PERRL/EOMI Ears, Nose, Throat Exam: hearing grossly normal Neck Exam: normal inspection Respiratory Exam: wheezing, No respiratory distress, No stridor Cardiovascular/Chest Exam: regular rate/rhythm Abdominal/Gastrointestinal Exam: soft, No rebound Extremity Exam: non-tender, normal range of motion, normal inspection, no pedal edema Neurologic Exam: alert, oriented x 3, cooperative Skin Exam: normal color, warm, dry <TIM GARCIAS - Last Filed: 05/08/17 19:09> - Physical Exam Neurologic Exam: alert, oriented x 3, 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, 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, sensation nml, No motor deficits SpO2 Interpretation: normal SpO2: 96 Oxygen Delivery: Nasal Cannula (2L chronically) <MARCIANO CUENCA - Last Filed: 05/08/17 20:27> - Nursing Vital Signs Nursing Vital Signs: Initial Vital Signs Temperature 98.6 F 05/08/17 17:20 Pulse Rate 86 05/08/17 17:20 Respiratory Rate 20 05/08/17 17:20 Blood Pressure 138/71 05/08/17 17:20 O2 Sat by Pulse Oximetry 98 05/08/17 17:20 Pain Scale Pain Intensity 9 - Course Nursing assessment & vital signs reviewed: Yes - CT Exams Chest CT Interpretation: Negative, Tele-radiologist Report, No PE <MARCIANO CUENCA - Last Filed: 05/08/17 20:27> Ordered Tests: Active Orders 24 hr Category Date Time Status Temple Marker STAT Care 05/08/17 17:25 Active EKG-ER Only STAT Care 05/08/17 17:24 Active IV Insertion STAT Care 05/08/17 17:24 Active Oxygen-ED Only NASAL CANNULA 2 lpm Care 05/08/17 17:24 Active CHEST 2 VIEWS (PA AND LAT) Stat Exams 05/08/17 17:25 Taken CHEST WITH CONTRAST [CT] Stat Exams 05/08/17 19:02 Taken CBC W DIFF Stat Lab 05/08/17 17:57 Completed CMP Stat Lab 05/08/17 17:57 Completed D-DIMER QUANTITATION Stat Lab 05/08/17 17:57 Completed HCG QUALITATIVE,SERUM Stat Lab 05/08/17 17:57 Completed Lactic Acid Stat Lab 05/08/17 17:46 Completed NT PRO BNP Stat Lab 05/08/17 17:57 Completed PROTIME WITH INR Stat Lab 05/08/17 17:57 Completed TROPONIN Q3H Lab 05/08/17 17:57 Completed TROPONIN Q3H Lab 05/08/17 20:30 Ordered TROPONIN Q3H Lab 05/08/17 23:30 Ordered TROPONIN Q3H Lab 05/09/17 02:30 Ordered TROPONIN Q3H Lab 05/09/17 05:30 Ordered Respiratory Nebulizer STAT RT 05/08/17 17:26 Completed Medication Summary Discontinued Medications Generic Name Dose Route Start Last Admin Trade Name Freq PRN Reason Stop Dose Admin Albuterol/Ipratropium 3 ml 05/08/17 17:24 05/08/17 17:38 Duoneb 0.5-3 Mg/3 Ml Neb IH 05/08/17 17:25 3 ml STAT ONE Administration Albuterol/Ipratropium Confirm 05/08/17 17:36 Duoneb 0.5-3 Mg/3 Ml Neb Administered 05/08/17 17:37 Dose 3 ml IH .STK-MED ONE Methylprednisolone Sodium Succinate 125 mg 05/08/17 17:24 05/08/17 18:33 Solu-Medrol 125 Mg IV 05/08/17 17:25 125 mg STAT ONE Administration Methylprednisolone Sodium Succinate Confirm 05/08/17 18:31 Solu-Medrol 125 Mg Administered 05/08/17 18:32 Dose 125 mg .ROUTE .STK-MED ONE Lab/Rad Data: Laboratory Result Diagrams 05/08/17 17:57 05/08/17 17:57 Laboratory Results 05/08/17 05/08/17 05/08/17 Range/Units 17:57 17:57 17:57 WBC (4.0-10.5) K/mm3 RBC (4.1-5.4) M/mm3 Hgb (12.0-16.0) gm/dl Hct (35-47) % MCV (78-100) fl MCH (26-32) pg MCHC (32-36) g/dl RDW (11.5-14.0) % Plt Count (150-450) K/mm3 MPV (6-9.5) fl Gran % (36.0-66.0) % Lymphocytes % (24.0-44.0) % Monocytes % (0.0-12.0) % Eosinophils % (0.00-5.0) % Basophils % (0.0-0.4) % Basophils # (0-0.4) INR 1.02 (0.8-3.0) D-Dimer 549.57 H* (0-500) ng/mL Sodium (136-145) mEq/L Potassium (3.5-5.1) mEq/L Chloride (98-107) mEq/L Carbon Dioxide (21-32) mEq/L Anion Gap (5-15) MEQ/L BUN (9-20) mg/dL Creatinine (0.55-1.30) mg/dl Estimated GFR ML/MIN Glucose (70-110) MG/DL Lactic Acid (0.4-2.0) Calcium (8.5-10.1) mg/dL Total Bilirubin (0.2-1.0) mg/dL AST (15-37) U/L ALT (12-78) U/L Alkaline Phosphatase (46-116) U/L Troponin I < 0.017 (0.000-0.056) ng/ml NT-Pro-B Natriuret Pep (0-125) pg/ml Serum Total Protein (6.4-8.2) gm/dL Albumin (3.4-5.0) g/dL Serum , Qual NEGATIVE (Negative) 05/08/17 05/08/17 05/08/17 Range/Units 17:57 17:57 17:46 WBC 7.1 (4.0-10.5) K/mm3 RBC 4.26 (4.1-5.4) M/mm3 Hgb 11.9 L (12.0-16.0) gm/dl Hct 37.1 (35-47) % MCV 87.1 (78-100) fl MCH 27.9 (26-32) pg MCHC 32.1 (32-36) g/dl RDW 13.1 (11.5-14.0) % Plt Count 197 (150-450) K/mm3 MPV 10.8 H (6-9.5) fl Gran % 51.4 (36.0-66.0) % Lymphocytes % 27.4 (24.0-44.0) % Monocytes % 7.3 (0.0-12.0) % Eosinophils % 13.8 H (0.00-5.0) % Basophils % 0.1 (0.0-0.4) % Basophils # 0.01 (0-0.4) INR (0.8-3.0) D-Dimer (0-500) ng/mL Sodium 146 H (136-145) mEq/L Potassium 3.5 (3.5-5.1) mEq/L Chloride 105 (98-107) mEq/L Carbon Dioxide 28.4 (21-32) mEq/L Anion Gap 16.3 H (5-15) MEQ/L BUN 7 L (9-20) mg/dL Creatinine 0.93 (0.55-1.30) mg/dl Estimated GFR > 60 ML/MIN Glucose 105 (70-110) MG/DL Lactic Acid 1.6 (0.4-2.0) Calcium 9.6 (8.5-10.1) mg/dL Total Bilirubin 0.20 (0.2-1.0) mg/dL AST 14 L (15-37) U/L ALT 18 (12-78) U/L Alkaline Phosphatase 114 (46-116) U/L Troponin I (0.000-0.056) ng/ml NT-Pro-B Natriuret Pep 57 (0-125) pg/ml Serum Total Protein 7.8 (6.4-8.2) gm/dL Albumin 4.4 (3.4-5.0) g/dL Serum , Qual (Negative) <TIM GARCIAS - Last Filed: 05/08/17 19:09> - Progress Progress: improved, re-examined (patient lying comfortably is not in any distress) <MARCIANO CUENCA - Last Filed: 05/08/17 20:27> - Progress Progress Note: 05/08/17 18:[address] Cuenca at 19:00 05/08/17 19:09 (TIM GARCIAS) <TIM GARCIAS - Last Filed: 05/08/17 19:09> - Departure Time of Disposition: 20:24 Departure Disposition: Home Critical Care Time: No <MARCIANO CUENCA - Last Filed: 05/08/17 20:27> - Departure Clinical Impression: URI (upper respiratory infection) Condition: Stable Referrals: ERICA BROCK [Primary Care Provider] - Instructions: Cough -- Adult, Viral Upper Respiratory Infection -- Adult Additional Instructions: Motrin or Tylenol for fever. Return for worse cough, shortness of breath, fever, dizziness, weakness or any problems
[2017-05-08 18:17] LABS: BASOPHIL % 0.1 % (0.0-0.4); Eosinophil % 13.8 % (0.00-5.0); Granulocytes % 51.4 % (36.0-66.0); Lymphocytes % 27.4 % (24.0-44.0); Mean Cell Volume 87.1 fl (78-100); Mean Corpuscular Hemoglobin 27.9 pg (26-32); Mean Platelet Volume 10.8 fl (6-9.5); Monocytes % 7.3 % (0.0-12.0); Platelet Count 197 K/mm3 (150-450); Red Blood Count 4.26 M/mm3 (4.1-5.4); Red Cell Distribution Width 13.1 % (11.5-14.0); White Blood Count 7.1 K/mm3 (4.0-10.5)
[2017-05-08 18:18] LABS: INR 1.02 (0.8-3.0); PROTIME 11.3 SECONDS (9.95-12.35)
[2017-05-08] MEDS ORDERED: solu-MEDROL 125 MG ONE (18:31)
[2017-05-08 18:34] LABS: ALBUMIN 4.4 g/dL (3.4-5.0); ALKALINE PHOSPHATASE 114 U/L (46-116); ANION GAP 16.3 MEQ/L (5-15); BLOOD UREA NITROGEN 7 mg/dL (9-20); CHLORIDE 105 mEq/L (98-107); Carbon Dioxide 28.4 mEq/L (21-32); Glucose 105 MG/DL (70-110); Potassium 3.5 mEq/L (3.5-5.1); SGOT/AST 14 U/L (15-37); SGPT/ALT 18 U/L (12-78); SODIUM 146 mEq/L (136-145); Total Protein 7.8 gm/dL (6.4-8.2)
[2017-05-08 20:27] VITALS: O2SAT 96
[2017-05-08 20:28] VITALS: BP 127/75; PULSE 86
--- NOTE | 2017-05-09 08:41 | XRAY ---
Indication: Chest pain. Elevated d-dimer. Multiple contiguous axial images obtained through the chest using 80 cc Isovue 370 contrast and PE protocol. Comparison: March 10, 2017. There is satisfactory opacification of the pulmonary arteries. No filling defect or pulmonary embolus. Heart is not enlarged. Aorta is normal in course and caliber. There is again a left-sided Port-A-Cath. New small fluid collection and air bubble around the hub of the Port-A-Cath presumed from IV infiltration. No pathologic mediastinal/hilar lymphadenopathy. Examination of the lung parenchyma demonstrates bilateral mid to lower lung subsegmental atelectasis/scarring, much less than before. No suspicious pulmonary mass, nodule, or effusion. Bony thorax intact. Limited upper abdomen again demonstrates fatty liver and cholecystectomy clips. Impression: 1. Again negative pulmonary embolus. 2. Interval diminished bilateral subsegmental atelectasis/scarring. 3. No new/acute cardiopulmonary abnormalities. 4. Stable fatty liver. 5. New small fluid collection and air bubble around the hub of the Port-A-Cath presumed from IV infiltration. CT DI 22.69
--- NOTE | 2017-05-09 09:01 | XRAY ---
Indication: Cough and short of breath. Comparison: March 16, 2017. PA/lateral chest slightly better inflated today again with bilateral mid to lower lung infiltrates/atelectasis less than before. Heart is not enlarged. Left-sided Port-A-Cath is now coiled with the tip withdrawn projecting over the left clavicle. Impression: 1. Interval diminished bilateral infiltrates/atelectasis. 2. No new cardiopulmonary abnormalities. 3. Left Port-A-Cath tip withdrawal. Same-day CT chest study demonstrates the tip of the catheter at the base of the left neck and no longer functional.
== END 2017-05-08 20:35 | disposition home or self-care (01) ==
LOC: ED 17:15
DX: J06.9 Acute upper respiratory infection, unspecified (principal); Z79.891 Long term (current) use of opiate analgesic; Z79.899 Other long term (current) drug therapy; I10 Essential (primary) hypertension; E10.9 Type 1 diabetes mellitus without complications; E03.9 Hypothyroidism, unspecified
CPT/HCPCS: 36000; 36415; 71020; 71260; 80053; 83605; 83880; 84484; 84703; 85025; 85379; 85610; 93005; 93041; 94640; 96374; 99284; J2930; A9270-GY

== ENCOUNTER 2017-06-01 21:31 | Emergency (ER) | payer OTHER ==
[2017-06-01] MEDS ORDERED: DUONEB 0.5-3 MG/3 ml Neb IH ONE ×2 (22:10→22:15)
[2017-06-01] MEDS ORDERED: Sodium Chloride 0.9% 1000 ML 1,000 ML IV STA (22:10)
--- NOTE | 2017-06-01 22:14 | ERPHSYRPT ---
- History of Present Illness Time Seen by Provider: 06/01/17 22:12 Source: patient Exam Limitations: no limitations Patient Subjective Stated Complaint: pt states she has had a cough for last several days and has had increasing shortness of breath last few days Triage Nursing Assessment: pt alert and oriented, asnwers questions approp. hoarse whispering voice. pt ambultory with steady gait noted. respirations nonlabored. insp and exp wheezes noted throughout, coarse lung sounds in bilat bases. Physician History: pt states she has had a cough for last several days and has had increasing shortness of breath last few days, seen by primary care physician 2 weeks ago and was started on ABx but without improvement., Timing/Duration: week(s) Possible Cause: frequent episodes Associated Symptoms: cough, wheezing, No fever Allergies/Adverse Reactions: aspirin Allergy (Mild, Verified 06/01/17 21:56) codeine [Codeine] Allergy (Mild, Verified 06/01/17 21:56) fluoxetine HCl [From Prozac] Allergy (Mild, Verified 06/01/17 21:56) Penicillins Allergy (Mild, Verified 06/01/17 21:56) promethazine HCl [From Phenergan] Allergy (Mild, Verified 06/01/17 21:56) tremors doxycycline hyclate [From Vibra-Tabs] Adverse Reaction (Verified 06/01/17 21:56) steroid from breathing treatment Allergy (Mild, Uncoded 06/01/17 21:56) Home Medications: Diltiazem HCl [Cartia Xt] 180 mg PO QPM 09/27/14 [History] Levothyroxine Sodium 100 Mcg [Synthroid 100 Mcg] 100 mcg PO QAM 09/27/14 [ History] Simvastatin [Zocor] 20 mg PO HS 09/27/14 [History] Clopidogrel Bisulfate 75 mg [PLAVIX 75 MG Tablet] 75 mg PO DAILY 04/05/15 [History] Cyclobenzaprine HCl 10 mg [Cyclobenzaprine 10 MG] 10 mg PO BID 07/16/15 [ History] Lamotrigine 100 mg [lamICTAL 100MG TABLET] 200 mg PO BID 09/27/15 [History ] Diazepam 5 mg [Valium 5 MG] 5 mg PO TIDPRN 02/14/16 [History] Lidocaine HCl 5% Patch [Lidoderm Patch 5%] 1 applic TD DAILY PRN PRN 04/20 [History] Omeprazole 20 MG [Prilosec 20 mg] 20 mg PO DAILY 04/20/16 [History] Trazodone HCl [Oleptro ER] 150 mg PO HS 04/20/16 [History] Triamcinolone Acetonide [Nasacort] 2 sprays IH DAILY 04/20/16 [History] Cyanocobalamin (Vitamin B-12) [Vitamin B12] 2,500 mcg PO DAILY 10/09/16 [History ] Dulaglutide [Trulicity] 0.75 mg SQ WEEKLY 10/09/16 [History] Folic Acid 1 mg PO BID 10/09/16 [History] Pyridoxine HCl 100 mg [Vitamin B-6 (Pyridoxine) 100 MG] 100 mg PO BID 01/18 [History] Albuterol Sulfate [Ventolin Hfa] 8 gm IH Q4HPRN PRN 12/21/16 [History] Aripiprazole 2 mg PO DAILY 12/21/16 [History] Insulin Detemir [Levemir] 7 units SQ DAILY 12/21/16 [History] Propranolol HCl [Propranolol HCl ER] 80 mg PO DAILY 12/21/16 [History] Sertraline HCl 50 mg [Zoloft 50 mg Tablet] 50 mg PO DAILY 12/21/16 [History] Magnesium Oxide 400 mg [Mag-Ox 400] 400 mg PO HS 03/10/17 [History] Oxycodone HCl/Acetaminophen [Percocet 10-325 mg Tablet] 1 each PO Q4HPRN PRN 12/18 [History] Hx Tetanus, Diphtheria Vaccination/Date Given: Yes Hx Influenza Vaccination/Date Given: Yes Hx Pneumococcal Vaccination/Date Given: No Immunizations Up to Date: Yes - Review of Systems Constitutional: No Fever, No Chills Eyes: No Symptoms Ears, Nose, & Throat: Hoarse Respiratory: Cough, Wheezing, No Dyspnea Cardiac: Chest Pain, No Edema, No Syncope, No Orthopnea, No PND Abdominal/Gastrointestinal: No Abdominal Pain, No Nausea, No Vomiting, No Diarrhea Genitourinary Symptoms: No Dysuria Musculoskeletal: No Back Pain, No Neck Pain Skin: No Rash Neurological: No Dizziness, No Focal Weakness, No Sensory Changes Psychological: No Symptoms Endocrine: No Symptoms All Other Systems: Reviewed and Negative - Past Medical History Pertinent Past Medical History: Yes Neurological History: Epilepsy, Seizures, Stroke ENT History: No Pertinent History Cardiac History: Hypertension, Other Respiratory History: Asthma, Pneumonia Endocrine Medical History: Diabetes Type I, Hypothyroidism Musculoskeletal History: Other GI Medical History: GERD, Hernia History: No Pertinent History Psycho-Social History: Anxiety, Bipolar, Depression, Panic Disorder Female Reproductive Disorders: Endometriosis Other Medical History: A FIB, MVP W/ REGURGITATION, HTN; HX R KNEE PN\\. home 02 - Past Surgical History Past Surgical History: Yes Neuro Surgical History: No Pertinent History Cardiac: Cardiac Catheterization Respiratory: No Pertinent History Gastrointestinal: Cholecystectomy, Hernia Repair Genitourinary: No Pertinent History Musculoskeletal: Joint Replacement, Orthopedic Surgery Female Surgical History: Hysterectomy Other Surgical History: torn miniscus and implant-RT KNEE" partial scope replacement" - Social History Smoking Status: Current every day smoker How long have you smoked: 25 Exposure to second hand smoke: No Alcohol Use: None Drug Use: none Patient Lives Alone: No Significant Family History: no pertinent family hx, heart disease, diabetes, hypertension - Female History Hx Last Menstrual Period: hyster Hx Now: No - Nursing Vital Signs Nursing Vital Signs: Initial Vital Signs Temperature 98.5 F 06/01/17 21:43 Pulse Rate 81 06/01/17 21:43 Respiratory Rate 20 06/01/17 21:43 Blood Pressure 121/64 06/01/17 21:43 O2 Sat by Pulse Oximetry 96 06/01/17 21:43 Pain Scale Pain Intensity 8 - Physical Exam General Appearance: no apparent distress, alert Eye Exam: PERRL/EOMI Neck Exam: normal inspection, supple Respiratory Exam: diminished breath sounds, wheezing Cardiovascular/Chest Exam: normal heart sounds, regular rate/rhythm Abdominal/Gastrointestinal Exam: soft, No tenderness, No distention, No mass Extremity Exam: non-tender, normal range of motion, normal inspection, no calf tenderness, no pedal edema Neurologic Exam: alert, oriented x 3, cooperative, kettle skimmer II-XII nml as tested, sensation nml, No motor deficits Skin Exam: normal color, warm, No dry SpO2 Interpretation: normal SpO2: 99 Oxygen Delivery: Room Air - Course Nursing assessment & vital signs reviewed: Yes - Radiology Exams Chest X-ray Interpretation: Reviewed by me, Negative, No Pneumonia Ordered Tests: Active Orders 24 hr Category Date Time Status CHEST 2 VIEWS (PA AND LAT) Stat Exams 06/01/17 22:10 Taken CBC W DIFF Stat Lab 06/01/17 23:00 Completed CMP Stat Lab 06/01/17 23:00 Completed Lactic Acid Stat Lab 06/01/17 23:20 Completed NT PRO BNP Stat Lab 06/01/17 23:00 Completed Respiratory Nebulizer STAT RT 06/01/17 22:11 Active Medication Summary Discontinued Medications Generic Name Dose Route Start Last Admin Trade Name Freq PRN Reason Stop Dose Admin Albuterol/Ipratropium 3 ml 06/01/17 22:10 06/01/17 22:32 Duoneb 0.5-3 Mg/3 Ml Neb IH 06/01/17 22:11 3 ml STAT ONE Administration Albuterol/Ipratropium Confirm 06/01/17 22:15 Duoneb 0.5-3 Mg/3 Ml Neb Administered 06/01/17 22:16 Dose 3 ml IH .STK-MED ONE Sodium Chloride 1,000 mls @ 999 mls/hr 06/01/17 22:10 06/01/17 23:01 Sodium Chloride 0.9% 1000 Ml IV 06/01/17 23:10 999 mls/hr .Q1H1M STA Administration Sodium Chloride Confirm 06/01/17 22:23 Sodium Chloride 0.9% 1000 Ml Administered 06/01/17 22:24 Dose 1,000 mls @ ud .ROUTE .STK-MED ONE Methylprednisolone Sodium Succinate 125 mg 06/01/17 23:40 Solu-Medrol 125 Mg IV 06/01/17 23:41 STAT ONE Lab/Rad Data: Laboratory Result Diagrams 06/01/17 23:00 06/01/17 23:00 Laboratory Results 06/01/17 06/01/17 06/01/17 Range/Units 23:20 23:00 23:00 WBC 8.4 (4.0-10.5) K/mm3 RBC 3.81 L (4.1-5.4) M/mm3 Hgb 10.7 L (12.0-16.0) gm/dl Hct 33.6 L (35-47) % MCV 88.2 (78-100) fl MCH 28.0 (26-32) pg MCHC 31.8 L (32-36) g/dl RDW 13.5 (11.5-14.0) % Plt Count 218 (150-450) K/mm3 MPV 9.6 H (6-9.5) fl Gran % 48.0 (36.0-66.0) % Lymphocytes % 30.1 (24.0-44.0) % Monocytes % 8.8 (0.0-12.0) % Eosinophils % 13.0 H (0.00-5.0) % Basophils % 0.1 (0.0-0.4) % Basophils # 0.01 (0-0.4) Sodium 145 (136-145) mEq/L Potassium 3.7 (3.5-5.1) mEq/L Chloride 104 (98-107) mEq/L Carbon Dioxide 32.8 H (21-32) mEq/L Anion Gap 11.8 (5-15) MEQ/L BUN 5 L (9-20) mg/dL Creatinine 0.87 (0.55-1.30) mg/dl Estimated GFR > 60 ML/MIN Glucose 97 (70-110) MG/DL Lactic Acid 0.9 (0.4-2.0) Calcium 9.1 (8.5-10.1) mg/dL Total Bilirubin 0.20 (0.2-1.0) mg/dL AST 13 L (15-37) U/L ALT 13 (12-78) U/L Alkaline Phosphatase 124 H (46-116) U/L NT-Pro-B Natriuret Pep 21 (0-125) pg/ml Serum Total Protein 7.2 (6.4-8.2) gm/dL Albumin 3.7 (3.4-5.0) g/dL - Progress Progress: unchanged Air Movement: good Blood Culture(s) Obtained: No Antibiotics given: No Counseled pt/family regarding: lab results, diagnosis, need for follow-up, rad results - Departure Time of Disposition: 23:41 Departure Disposition: Home Clinical Impression: Laryngitis URI (upper respiratory infection) Qualifiers: URI type: acute pharyngitis Pharyngitis/tonsillitis etiology: unspecified etiology Qualified Code(s): J02.9 - Acute pharyngitis, unspecified Condition: Stable Critical Care Time: No Referrals: ERICA BROCK [Primary Care Provider] - Instructions: Laryngitis Additional Instructions: Please follow the instructions given to you. Please take your medication as prescribed if given. If symptoms recur or get worse, come back to the emergency room if you cannot reach your primary care physician, or call your primary care physician for an appointment. Again if your symptoms get worse, come back to the emergency room. Thanks for visiting emergency room, and let us take care of you.
[2017-06-01] MEDS ORDERED: Sodium Chloride 0.9% 1000 ML 1,000 ML ONE (22:23)
[2017-06-01 23:03] LABS: BASOPHIL % 0.1 % (0.0-0.4); Basophil (Absolute #) 0.01 (0-0.4); Granulocyte Absolute (ANC) 4.05 (1.4-6.9); Hematocrit 33.6 % (35-47); Hemoglobin 10.7 gm/dl (12.0-16.0); Lymphocyte (Absolute #) 2.54 (1.0-4.6); Lymphocytes % 30.1 % (24.0-44.0); Mean Cell Volume 88.2 fl (78-100); Mean Corpuscular Hgb Concent. 31.8 g/dl (32-36); Mean Platelet Volume 9.6 fl (6-9.5); Monocyte (Absolute #) 0.74 (0.0-1.3); Monocytes % 8.8 % (0.0-12.0); Platelet Count 218 K/mm3 (150-450); Red Blood Count 3.81 M/mm3 (4.1-5.4); Red Cell Distribution Width 13.5 % (11.5-14.0); White Blood Count 8.4 K/mm3 (4.0-10.5)
[2017-06-01 23:33] LABS: ALBUMIN 3.7 g/dL (3.4-5.0); ALKALINE PHOSPHATASE 124 U/L (46-116); ANION GAP 11.8 MEQ/L (5-15); BLOOD UREA NITROGEN 5 mg/dL (9-20); CHLORIDE 104 mEq/L (98-107); Calcium 9.1 mg/dL (8.5-10.1); Carbon Dioxide 32.8 mEq/L (21-32); Creatinine 1 0.87 mg/dl (0.55-1.30); EST GLOMERULAR FILTRATION RATE > 60 ML/MIN; Glucose 97 MG/DL (70-110); NT PRO BNP 21 pg/ml (0-125); Potassium 3.7 mEq/L (3.5-5.1); SGOT/AST 13 U/L (15-37); SGPT/ALT 13 U/L (12-78); SODIUM 145 mEq/L (136-145); Total Protein 7.2 gm/dL (6.4-8.2)
[2017-06-01] MEDS ORDERED: solu-MEDROL 125 MG IV ONE (23:40)
[2017-06-01] MEDS ORDERED: solu-MEDROL 125 MG ONE (23:47)
[2017-06-02 00:07] VITALS: BP 122/70; PULSE 78; O2SAT 97
--- NOTE | 2017-06-02 08:02 | XRAY ---
Indication: Cough, congestion, short of breath. Comparison: May 24, 2017. PA/lateral chest unchanged again with bibasilar atelectasis/scarring and left-sided Port-A-Cath with tip withdrawn projecting over the left clavicle. Remaining heart and lungs unremarkable.
== END 2017-06-02 00:07 | disposition home or self-care (01) ==
LOC: ED 21:31
DX: J04.0 Acute laryngitis (principal); J02.9 Acute pharyngitis, unspecified
CPT/HCPCS: 36000; 36415; 71020; 80053; 83605; 83880; 85025; 94640; 96360; 96374; 99284; J2930; A9270-GY

== ENCOUNTER 2017-06-06 17:22 | Inpatient (IN) | payer OTHER ==
[2017-06-06] MEDS ORDERED: solu-MEDROL 125 MG IV ONE (17:48)
[2017-06-06] MEDS ORDERED: DUONEB 0.5-3 MG/3 ml Neb IH ONE ×2 (17:48→18:27)
--- NOTE | 2017-06-06 17:48 | ERPHSYRPT ---
- History of Present Illness Source: patient, family Exam Limitations: no limitations Timing/Duration: week(s) (4) Cough Quality/Degree: severe, productive cough Possible Cause: occasional episodes Modifying Factors: Improves With: coughing, oxygen Associated Symptoms: fever, cough, sore throat Hx Tetanus, Diphtheria Vaccination/Date Given: Yes Hx Influenza Vaccination/Date Given: Yes Hx Pneumococcal Vaccination/Date Given: No <MONA ALEMAN - Last Filed: 06/06/17 18:56> <MONA KUMAR - Last Filed: 06/06/17 20:09> - History of Present Illness Time Seen by Provider: 06/06/17 17:39 Physician History: The patient is a 41-year-old female with her complaining of a worsening cough for 2 weeks. The cough had actually started 4 weeks ago but was constant and unchanging for the first 2 weeks. She lost her voice 5 days ago. She has a sore throat. She's had a fever past 2 days of up to 101 yesterday. Her appetite has been poor, although she has been able to take oral liquids. She did receive her influenza vaccination this year. Her past medical history is significant for COPD, high cholesterol, chronic pain, GERD, hypertension, hypothyroidism, diabetes, and anxiety. (MONA ALEMAN) Allergies/Adverse Reactions: aspirin Allergy (Mild, Verified 06/01/17 21:56) codeine [Codeine] Allergy (Mild, Verified 06/01/17 21:56) fluoxetine HCl [From Prozac] Allergy (Mild, Verified 06/01/17 21:56) Penicillins Allergy (Mild, Verified 06/01/17 21:56) promethazine HCl [From Phenergan] Allergy (Mild, Verified 06/01/17 21:56) tremors doxycycline hyclate [From Vibra-Tabs] Adverse Reaction (Verified 06/01/17 21:56) steroid from breathing treatment Allergy (Mild, Uncoded 06/01/17 21:56) Home Medications: Diltiazem HCl [Cartia Xt] 180 mg PO QPM 09/27/14 [History] Levothyroxine Sodium 100 Mcg [Synthroid 100 Mcg] 100 mcg PO QAM 09/27/14 [ History] Simvastatin [Zocor] 20 mg PO HS 09/27/14 [History] Clopidogrel Bisulfate 75 mg [PLAVIX 75 MG Tablet] 75 mg PO DAILY 04/05/15 [History] Cyclobenzaprine HCl 10 mg [Cyclobenzaprine 10 MG] 10 mg PO BID 07/16/15 [ History] Lamotrigine 100 mg [lamICTAL 100MG TABLET] 200 mg PO BID 09/27/15 [History ] Diazepam 5 mg [Valium 5 MG] 5 mg PO TIDPRN 02/14/16 [History] Lidocaine HCl 5% Patch [Lidoderm Patch 5%] 1 applic TD DAILY PRN PRN 04/20 [History] Omeprazole 20 MG [Prilosec 20 mg] 20 mg PO DAILY 04/20/16 [History] Trazodone HCl [Oleptro ER] 150 mg PO HS 04/20/16 [History] Triamcinolone Acetonide [Nasacort] 2 sprays IH DAILY 04/20/16 [History] Cyanocobalamin (Vitamin B-12) [Vitamin B12] 2,500 mcg PO DAILY 10/09/16 [History ] Dulaglutide [Trulicity] 0.75 mg SQ WEEKLY 10/09/16 [History] Folic Acid 1 mg PO BID 10/09/16 [History] Pyridoxine HCl 100 mg [Vitamin B-6 (Pyridoxine) 100 MG] 100 mg PO BID 01/18 [History] Albuterol Sulfate [Ventolin Hfa] 8 gm IH Q4HPRN PRN 12/21/16 [History] Aripiprazole 2 mg PO DAILY 12/21/16 [History] Insulin Detemir [Levemir] 7 units SQ DAILY 12/21/16 [History] Propranolol HCl [Propranolol HCl ER] 80 mg PO DAILY 12/21/16 [History] Sertraline HCl 50 mg [Zoloft 50 mg Tablet] 50 mg PO DAILY 12/21/16 [History] Magnesium Oxide 400 mg [Mag-Ox 400] 400 mg PO HS 03/10/17 [History] Oxycodone HCl/Acetaminophen [Percocet 10-325 mg Tablet] 1 each PO Q4HPRN PRN 12/18 [History] - Review of Systems Constitutional: Fever Eyes: No Symptoms Ears, Nose, & Throat: Nose Congestion, Throat Pain, Hoarse Respiratory: Cough, Dyspnea Cardiac: No Chest Pain, No Edema, No Syncope Abdominal/Gastrointestinal: No Abdominal Pain, No Nausea, No Vomiting, No Diarrhea Genitourinary Symptoms: No Dysuria Musculoskeletal: No Back Pain, No Neck Pain Skin: No Rash Neurological: No Dizziness, No Focal Weakness, No Sensory Changes Psychological: No Symptoms Endocrine: No Symptoms Hematologic/Lymphatic: No Symptoms Immunological/Allergic: No Symptoms All Other Systems: Reviewed and Negative <MONA ALEMAN - Last Filed: 06/06/17 18:56> - Past Medical History Pertinent Past Medical History: Yes Neurological History: Epilepsy, Seizures, Stroke ENT History: No Pertinent History Cardiac History: Hypertension, Other Respiratory History: Asthma, Pneumonia Endocrine Medical History: Diabetes Type I, Hypothyroidism Musculoskeletal History: Other GI Medical History: GERD, Hernia History: No Pertinent History Psycho-Social History: Anxiety, Bipolar, Depression, Panic Disorder Female Reproductive Disorders: Endometriosis Other Medical History: A FIB, MVP W/ REGURGITATION, HTN; HX R KNEE PN\\. home 02 - Past Surgical History Past Surgical History: Yes Neuro Surgical History: No Pertinent History Cardiac: Cardiac Catheterization Respiratory: No Pertinent History Gastrointestinal: Cholecystectomy, Hernia Repair Genitourinary: No Pertinent History Musculoskeletal: Joint Replacement, Orthopedic Surgery Female Surgical History: Hysterectomy Other Surgical History: torn miniscus and implant-RT KNEE" partial scope replacement" - Social History Smoking Status: Current every day smoker How long have you smoked: 25 Exposure to second hand smoke: No Alcohol Use: None Drug Use: none Patient Lives Alone: No Significant Family History: no pertinent family hx, heart disease, diabetes, hypertension <MONA ALEMAN - Last Filed: 06/06/17 18:56> - Physical Exam General Appearance: moderate distress Eye Exam: PERRL/EOMI, eyes nml inspection Ears, Nose, Throat Exam: TMs normal, pharynx normal, moist mucous membranes, pharyngeal erythema Neck Exam: normal inspection, non-tender, supple, full range of motion Respiratory Exam: rhonchi Cardiovascular Exam: tachycardia Gastrointestinal/Abdomen Exam: soft, No tenderness Pelvic Exam: not done Rectal Exam: not done Back Exam: normal inspection, No CVA tenderness, No vertebral tenderness Extremity Exam: normal inspection, normal range of motion Neurologic Exam: alert, oriented x 3, cooperative, normal mood/affect, sensation nml, No motor deficits Skin Exam: normal color, warm, dry, No rash Lymphatic Exam: No adenopathy SpO2 Interpretation: borderline oxygenation (Pt is on O2 4 L NC at home.) Oxygen Delivery: Nasal Cannula <MONA ALEMAN - Last Filed: 06/06/17 18:56> - Nursing Vital Signs Nursing Vital Signs: Initial Vital Signs Temperature 99.5 F 06/06/17 17:28 Pulse Rate 123 H 06/06/17 17:28 Respiratory Rate 22 06/06/17 17:28 Blood Pressure 118/78 06/06/17 17:28 O2 Sat by Pulse Oximetry 96 06/06/17 17:28 Pain Scale Pain Intensity 10 - Radiology Exams Chest X-ray Interpretation: Interpreted by me, Infiltrates - CT Exams Chest CT Interpretation: Discussed w/radiologist (COMPARED TO 05/08/17: WORSENING SCATTERED B/L LOWER LOBE, RML & LINGULAR CONSOLIDATING OPACITIES EITHER ATX VS ORGANIZING PNEUMONIA. NO EFFUSION OR MEDIASTINAL LYMPHADENOPATHY. STABLE NONFUNCTIONING L PAMELA CATH.) <MONA KUMAR - Last Filed: 06/06/17 20:09> Ordered Tests: Active Orders 24 hr Category Date Time Status IV Insertion STAT Care 06/06/17 17:48 Active Oxygen-ED Only NASAL CANNULA 4 lpm Care 06/06/17 17:48 Active Pulse Oximetry (ED) STAT Care 06/06/17 17:48 Active CHEST 2 VIEWS (PA AND LAT) Stat Exams 06/06/17 17:50 Taken CHEST WITHOUT CONTRAST [CT] Stat Exams 06/06/17 18:29 Taken BLOOD CULTURE Stat Lab 06/06/17 18:11 Received CBC W DIFF Stat Lab 06/06/17 18:00 Completed CMP Stat Lab 06/06/17 18:00 Completed CULTURE,SPUTUM Stat Lab 06/06/17 17:49 Uncollected Lactic Acid Stat Lab 06/06/17 18:15 Results Respiratory Nebulizer STAT RT 06/06/17 17:51 Completed Medication Summary Generic Name Dose Route Start Last Admin Trade Name Freq PRN Reason Stop Dose Admin Azithromycin 500 mg in 250 mls @ 250 mls/hr 06/06/17 19:21 06/06/17 19:54 Zithromax 500 Mg/ 250 Ml Nacl Premix IV 06/06/17 20:20 250 mls/hr STAT STA Administration Potassium Chloride 20 meq in 100 mls @ 50 mls/hr 06/06/17 20:01 Potassium Chloride 20 Meq In Water 100ml IV 06/06/17 22:00 STAT ONE Sodium Chloride 1,000 mls @ 999 mls/hr 06/06/17 20:04 Sodium Chloride 0.9% 1000 Ml IV 06/06/17 21:04 .Q1H1M STA Discontinued Medications Generic Name Dose Route Start Last Admin Trade Name Gilmarq PRN Reason Stop Dose Admin Albuterol/Ipratropium 3 ml 06/06/17 17:48 06/06/17 18:29 Duoneb 0.5-3 Mg/3 Ml Neb IH 06/06/17 17:49 3 ml STAT ONE Administration Albuterol/Ipratropium Confirm 06/06/17 18:27 Duoneb 0.5-3 Mg/3 Ml Neb Administered 06/06/17 18:28 Dose 3 ml IH .STK-MED ONE Sodium Chloride 1,000 mls @ 999 mls/hr 06/06/17 17:59 06/06/17 19:03 Sodium Chloride 0.9% 1000 Ml IV 06/06/17 18:59 999 mls/hr .Q1H1M STA Administration Sodium Chloride Confirm 06/06/17 18:18 Sodium Chloride 0.9% 1000 Ml Administered 06/06/17 18:19 Dose 1,000 mls @ ud .ROUTE .STK-MED ONE Ceftriaxone Sodium/Dextrose 1 g in 50 mls @ 100 mls/hr 06/06/17 19:21 19:31 Rocephin 1 Gm-D5w 50 Ml Bag IV 06/06/17 19:50 100 mls/hr STAT STA Administration Azithromycin Confirm 06/06/17 19:28 Zithromax 500 Mg/ 250 Ml Nacl Premix Administered 06/06/17 19:29 Dose 500 mg in 250 mls @ ud IV .STK-MED ONE Ceftriaxone Sodium/Dextrose Confirm 06/06/17 19:28 Rocephin 1 Gm-D5w 50 Ml Bag Administered 06/06/17 19:29 Dose 1 g in 50 mls @ ud IV .STK-MED ONE Ketorolac Tromethamine 30 mg 06/06/17 17:59 06/06/17 18:56 Toradol 30 Mg Injection IV 06/06/17 18:00 30 mg STAT ONE Administration Ketorolac Tromethamine Confirm 06/06/17 18:18 Toradol 30 Mg Injection Administered 06/06/17 18:19 Dose 30 mg .ROUTE .STK-MED ONE Methylprednisolone Sodium Succinate 125 mg 06/06/17 17:48 06/06/17 18:53 Solu-Medrol 125 Mg IV 06/06/17 17:49 125 mg STAT ONE Administration Methylprednisolone Sodium Succinate Confirm 06/06/17 18:18 Solu-Medrol 125 Mg Administered 06/06/17 18:19 Dose 125 mg .ROUTE .STK-MED ONE Ondansetron HCl 4 mg 06/06/17 17:59 06/06/17 18:54 Zofran 4 Mg/2 Ml Vial IV 06/06/17 18:00 4 mg STAT ONE Administration Ondansetron HCl Confirm 06/06/17 18:18 Zofran 4 Mg/2 Ml Vial Administered 06/06/17 18:19 Dose 4 mg .ROUTE .STK-MED ONE Potassium Chloride 40 meq 06/07/17 10:00 Potassium Chl 40 Meq/30 Ml Oral Solution PO 07/07/17 09:59 DAILY LAMONTE Potassium Chloride Confirm 06/06/17 19:41 Potassium Chloride 20 Meq Powder For Oral Sada Administered 06/06/17 19:42 Dose 40 meq .ROUTE .STK-MED ONE Lab/Rad Data: Laboratory Result Diagrams 06/06/17 18:00 06/06/17 18:00 Laboratory Results 06/06/17 06/06/17 06/06/17 Range/Units 18:15 18:00 18:00 WBC (4.0-10.5) K/mm3 RBC (4.1-5.4) M/mm3 Hgb (12.0-16.0) gm/dl Hct (35-47) % MCV (78-100) fl MCH (26-32) pg MCHC (32-36) g/dl RDW (11.5-14.0) % Plt Count (150-450) K/mm3 MPV (6-9.5) fl Gran % (36.0-66.0) % Lymphocytes % (24.0-44.0) % Monocytes % (0.0-12.0) % Eosinophils % (0.00-5.0) % Basophils % (0.0-0.4) % Basophils # (0-0.4) Sodium 138 (136-145) mEq/L Potassium 3.2 L (3.5-5.1) mEq/L Chloride 101 (98-107) mEq/L Carbon Dioxide 23.6 (21-32) mEq/L Anion Gap 16.8 H (5-15) MEQ/L BUN 10 (9-20) mg/dL Creatinine 0.96 (0.55-1.30) mg/dl Estimated GFR > 60 ML/MIN Glucose 181 H (70-110) MG/DL Lactic Acid 2.6 H (0.4-2.0) Calcium 9.2 (8.5-10.1) mg/dL Total Bilirubin 0.30 (0.2-1.0) mg/dL AST 15 (15-37) U/L ALT 15 (12-78) U/L Alkaline Phosphatase 143 H (46-116) U/L Serum Total Protein 7.9 (6.4-8.2) gm/dL Albumin 3.9 (3.4-5.0) g/dL Influenza Type A Ag NEGATIVE (NEGATIVE) Influenza Type B Ag NEGATIVE (NEGATIVE) RSV (PCR) NEGATIVE (Negative) 06/06/17 Range/Units 18:00 WBC 13.1 H (4.0-10.5) K/mm3 RBC 4.33 (4.1-5.4) M/mm3 Hgb 12.2 (12.0-16.0) gm/dl Hct 37.6 (35-47) % MCV 86.8 (78-100) fl MCH 28.2 (26-32) pg MCHC 32.4 (32-36) g/dl RDW 13.4 (11.5-14.0) % Plt Count 196 (150-450) K/mm3 MPV 10.4 H (6-9.5) fl Gran % 82.4 H (36.0-66.0) % Lymphocytes % 7.1 L (24.0-44.0) % Monocytes % 4.4 (0.0-12.0) % Eosinophils % 6.0 H (0.00-5.0) % Basophils % 0.1 (0.0-0.4) % Basophils # 0.01 (0-0.4) Sodium (136-145) mEq/L Potassium (3.5-5.1) mEq/L Chloride (98-107) mEq/L Carbon Dioxide (21-32) mEq/L Anion Gap (5-15) MEQ/L BUN (9-20) mg/dL Creatinine (0.55-1.30) mg/dl Estimated GFR ML/MIN Glucose (70-110) MG/DL Lactic Acid (0.4-2.0) Calcium (8.5-10.1) mg/dL Total Bilirubin (0.2-1.0) mg/dL AST (15-37) U/L ALT (12-78) U/L Alkaline Phosphatase (46-116) U/L Serum Total Protein (6.4-8.2) gm/dL Albumin (3.4-5.0) g/dL Influenza Type A Ag (NEGATIVE) Influenza Type B Ag (NEGATIVE) RSV (PCR) (Negative) <MONA ALEMAN - Last Filed: 06/06/17 18:56> - Progress Discussed with : Corona ([id number]) <MONA KUMAR - Last Filed: 06/06/17 20:09> - Progress Progress Note: 06/06/17 18:57 Pt care discussed and care transferred to Dr Kumar at 19:00. (MONA ALEMAN) 06/06/17 19:[address] KUMAR @ 1920: PERRL, EOMI, TM'S NOT INJECTED, PHARYNX ERYTHEMATOUS, LUNGS HAVE RHONCHI AND WHEEZING, NO CARDIAC RUB, ABDOMINAL B.S. NORMAL, NO ANKLE EDEMA, MILD MALAISE. (MONA KUMAR) <MONA ALEMAN - Last Filed: 06/06/17 18:56> - Departure Time of Disposition: 20:09 Departure Disposition: Observation Critical Care Time: No <MONA KUMAR - Last Filed: 06/06/17 20:09> - Departure Clinical Impression: PNEUMONIA, PHARYNGITIS, HYPOKALEMIA, ELEVATED LACTIC ACID, HTN, HYPOTHYROIDISM , DM, GERD, BIPOLAR DISORDER, ANXIETY, HX SEIZURES, HX CVA Condition: Stable Referrals: ERICA BROCK [Primary Care Provider] -
[2017-06-06] MEDS ORDERED: Sodium Chloride 0.9% 1000 ML 1,000 ML IV STA ×2 (17:59→20:04)
[2017-06-06] MEDS ORDERED: Zofran 4 MG/2 ML VIAL IV ONE (17:59)
[2017-06-06] MEDS ORDERED: TORAdol 30 mg Injection IV ONE (17:59)
[2017-06-06 18:16] LABS: BASOPHIL % 0.1 % (0.0-0.4); Basophil (Absolute #) 0.01 (0-0.4); Eosinophil (Absolute #) 0.79 (0-0.5); Granulocyte Absolute (ANC) 10.77 (1.4-6.9); Granulocytes % 82.4 % (36.0-66.0); Hematocrit 37.6 % (35-47); Hemoglobin 12.2 gm/dl (12.0-16.0); Lymphocyte (Absolute #) 0.93 (1.0-4.6); Lymphocytes % 7.1 % (24.0-44.0); Mean Cell Volume 86.8 fl (78-100); Mean Corpuscular Hemoglobin 28.2 pg (26-32); Mean Corpuscular Hgb Concent. 32.4 g/dl (32-36); Mean Platelet Volume 10.4 fl (6-9.5); Monocyte (Absolute #) 0.57 (0.0-1.3); Monocytes % 4.4 % (0.0-12.0); Platelet Count 196 K/mm3 (150-450); Red Blood Count 4.33 M/mm3 (4.1-5.4); Red Cell Distribution Width 13.4 % (11.5-14.0); White Blood Count 13.1 K/mm3 (4.0-10.5)
[2017-06-06] MEDS ORDERED: Zofran 4 MG/2 ML VIAL ONE (18:18)
[2017-06-06] MEDS ORDERED: Sodium Chloride 0.9% 1000 ML 1,000 ML ONE (18:18)
[2017-06-06] MEDS ORDERED: solu-MEDROL 125 MG ONE (18:18)
[2017-06-06] MEDS ORDERED: TORAdol 30 mg Injection ONE (18:18)
[2017-06-06 18:21] LABS: Lactic Acid 2.6 (0.4-2.0)
[2017-06-06 18:43] LABS: ALBUMIN 3.9 g/dL (3.4-5.0); ALKALINE PHOSPHATASE 143 U/L (46-116); ANION GAP 16.8 MEQ/L (5-15); BLOOD UREA NITROGEN 10 mg/dL (9-20); CHLORIDE 101 mEq/L (98-107); Calcium 9.2 mg/dL (8.5-10.1); Carbon Dioxide 23.6 mEq/L (21-32); Creatinine 1 0.96 mg/dl (0.55-1.30); EST GLOMERULAR FILTRATION RATE > 60 ML/MIN; Glucose 181 MG/DL (70-110); Potassium 3.2 mEq/L (3.5-5.1); SGOT/AST 15 U/L (15-37); SGPT/ALT 15 U/L (12-78); SODIUM 138 mEq/L (136-145); Total Protein 7.9 gm/dL (6.4-8.2)
[2017-06-06 19:16] LABS: INFLUENZA A NEGATIVE (NEGATIVE); INFLUENZA B NEGATIVE (NEGATIVE); RESPIRATORY SYNCTIAL VIRUS NEGATIVE (Negative)
[2017-06-06] MEDS ORDERED: Zithromax 500 MG/ 250 ML NaCl Premix 500 MG/250 ML IVPB IV STA (19:21)
[2017-06-06] MEDS ORDERED: ROCEPHIN 1 Gm-D5w 50 ml Bag** 1 G/50 ML IVPB IV STA (19:21)
[2017-06-06] MEDS ORDERED: Zithromax 500 MG/ 250 ML NaCl Premix 500 MG/250 ML IVPB IV ONE (19:28)
[2017-06-06] MEDS ORDERED: ROCEPHIN 1 Gm-D5w 50 ml Bag** 1 G/50 ML IVPB IV ONE (19:28)
[2017-06-06] MEDS ORDERED: POTASSIUM CHLORIDE 20 MEQ POWDER FOR ORAL SOL ONE (19:41)
[2017-06-06] MEDS ORDERED: POTASSIUM CHLORIDE 20 mEq IN WATER 100ML 20 MEQ/100 ML BAG IV ONE (20:01)
[2017-06-06 20:44] LABS: Lactic Acid 2.5 (0.4-2.0)
[2017-06-06] MEDS ORDERED: TORAdol 30 mg Injection IV PRN (21:05)
[2017-06-06] MEDS ORDERED: PROVENTIL 2.5 MG/3 ML NEB IH PRN (21:05)
[2017-06-06] MEDS ORDERED: TYLENOL 325 MG PO PRN (21:05)
[2017-06-06] MEDS: Sodium Chloride 0.9% 1000 ML 1,000 ML IV SCH (21:41)
[2017-06-06] MEDS: MORPHINE SULFATE 2 MG INJ IV PRN (22:25)
[2017-06-06] MEDS: DUONEB 0.5-3 MG/3 ml Neb IH SCH (22:29)
[2017-06-06] MEDS ORDERED: ZOCOR 20MG ONE (23:16)
[2017-06-06] MEDS: Neurontin 400 MG PO SCH (23:17)
[2017-06-06] MEDS: Cardizem CD 180 MG PO SCH (23:17)
[2017-06-06] MEDS: ZOCOR 20MG PO SCH (23:17)
[2017-06-06] MEDS: Desyrel 150 MG PO SCH (23:17)
[2017-06-06] MEDS: Cyclobenzaprine 10 MG PO SCH (23:17)
[2017-06-06] MEDS: lamICTAL 100MG TABLET PO SCH (23:18)
[2017-06-06] MEDS: Carafate 1 GM PO SCH (23:18)
[2017-06-06] MEDS: MAG-OX 400 PO SCH (23:18)
[2017-06-06] MEDS: Naprosyn 500 MG PO SCH (23:18)
[2017-06-07] MEDS: DUONEB 0.5-3 MG/3 ml Neb IH SCH ×6 (02:45→23:41)
[2017-06-07] MEDS: MORPHINE SULFATE 2 MG INJ IV PRN ×4 (05:52→20:27)
[2017-06-07 06:02] LABS: Lactic Acid 2.6 (0.4-2.0)
[2017-06-07 06:24] LABS: BASOPHIL % 0.1 % (0.0-0.4); Basophil (Absolute #) 0.01 (0-0.4); Eosinophil (Absolute #) 0 (0-0.5); Granulocyte Absolute (ANC) 10.17 (1.4-6.9); Granulocytes % 92.8 % (36.0-66.0); Hematocrit 33.4 % (35-47); Hemoglobin 10.3 gm/dl (12.0-16.0); Lymphocytes % 5.5 % (24.0-44.0); Mean Cell Volume 88.6 fl (78-100); Mean Corpuscular Hemoglobin 27.3 pg (26-32); Mean Corpuscular Hgb Concent. 30.8 g/dl (32-36); Mean Platelet Volume 10.9 fl (6-9.5); Monocyte (Absolute #) 0.18 (0.0-1.3); Monocytes % 1.6 % (0.0-12.0); Platelet Count 203 K/mm3 (150-450); Red Blood Count 3.77 M/mm3 (4.1-5.4); Red Cell Distribution Width 13.5 % (11.5-14.0)
[2017-06-07 06:46] LABS: ALBUMIN 3.4 g/dL (3.4-5.0); ALKALINE PHOSPHATASE 124 U/L (46-116); ANION GAP 13.9 MEQ/L (5-15); BLOOD UREA NITROGEN 7 mg/dL (9-20); CHLORIDE 107 mEq/L (98-107); Calcium 8.8 mg/dL (8.5-10.1); Carbon Dioxide 23.9 mEq/L (21-32); EST GLOMERULAR FILTRATION RATE > 60 ML/MIN; Glucose 190 MG/DL (70-110); Potassium 4.1 mEq/L (3.5-5.1); SGOT/AST 13 U/L (15-37); SGPT/ALT 14 U/L (12-78); SODIUM 141 mEq/L (136-145); Total Protein 7.1 gm/dL (6.4-8.2)
[2017-06-07] MEDS: Carafate 1 GM PO SCH ×4 (07:08→22:30)
[2017-06-07] MEDS: Sodium Chloride 0.9% 1000 ML 1,000 ML IV SCH ×2 (07:09→15:48)
[2017-06-07 08:25] LABS: Lactic Acid 2.6 (0.4-2.0)
--- NOTE | 2017-06-07 08:36 | XRAY ---
Indication: Short of breath, fever, and cough. Multiple contiguous axial images obtained through the chest without contrast. Comparison: May 08, 2017. Interval worsening scattered bilateral lower lobe consolidating opacities either subsegmental atelectasis, organizing pneumonia, or combination. Lesser degree seen in the right middle lobe and lingula. No effusion. Heart is not enlarged. Aorta is normal in course and caliber. No pathologic mediastinal lymphadenopathy. Stable nonfunctioning left Port-A-Cath. Bony thorax intact. Limited upper abdomen again demonstrates mild fatty liver. Impression: 1. Interval worsening scattered bilateral consolidating opacities as detailed. Findings possibly subsegmental atelectasis, organizing pneumonia, or combination. 2. Stable fatty liver. CT DI 19.37
--- NOTE | 2017-06-07 08:36 | XRAY ---
Indication: Cough and congestion. Comparison: June 01, 2017. PA/lateral chest unchanged again with CT proven bibasilar infiltrates/atelectasis and nonfunctioning left-sided Port-A-Cath. Heart is not enlarged. No new/acute findings.
[2017-06-07] MEDS ORDERED: Sodium Chloride 0.9% 1000 ML 1,000 ML IV STA (08:47)
--- NOTE | 2017-06-07 09:06 | PCM.HP ---
History of Present Illness - Chief Complaint Chief Complaint: Shortness of Breath History of Present Illness: is a 41 year old female pt of mine from [facility], diabetic with chronic lung disease, who was admitted through ER with pneumonia last night. She c/o being ill for 1 mo, went to ER 3d ago and dx with bronchitis and sent home. She ran fever to 101.6 at home, chills, fatigued, vomiting and came back to ER for admission. She has nausea this morning. C/o generalized constant chest pain/tightness. - Review of Systems Constitutional: Fever Respiratory: Cough, Short Of Breath Cardiac: Chest Pain Abdominal/Gastrointestinal: Nausea, Vomiting Psychological: Anxiety, Depression, No Suicidal Ideations, No Homicidal Ideations All Other Systems: Reviewed and Negative Medications & Allergies Home Medications: Home Medication List Diltiazem HCl [Cartia Xt] 180 mg PO QPM 09/27/14 [History Confirmed 06/06/17] Levothyroxine Sodium 100 Mcg [Synthroid 100 Mcg] 100 mcg PO QAM 09/27/14 [ History Confirmed 06/06/17] Simvastatin [Zocor] 20 mg PO HS 09/27/14 [History Confirmed 06/06/17] Clopidogrel Bisulfate 75 mg [PLAVIX 75 MG Tablet] 75 mg PO DAILY 04/05/15 [History Confirmed 06/06/17] Cyclobenzaprine HCl 10 mg [Cyclobenzaprine 10 MG] 10 mg PO BID 07/16/15 [ History Confirmed 06/06/17] Lamotrigine 100 mg [lamICTAL 100MG TABLET] 200 mg PO BID 09/27/15 [ History Confirmed 06/06/17] Bumetanide 1 mg [Bumex 1 mg] 1 mg PO DAILY #30 tablet 10/02/15 [Rx Confirmed 06/06/17] Diazepam 5 mg [Valium 5 MG] 5 mg PO TIDPRN 02/14/16 [History Confirmed 08/19] Lidocaine HCl 5% Patch [Lidoderm Patch 5%] 1 applic TD DAILY PRN PRN 04/20 [History Confirmed 06/06/17] Omeprazole 20 MG [Prilosec 20 mg] 20 mg PO DAILY 04/20/16 [History Confirmed 08/19] Trazodone HCl [Oleptro ER] 150 mg PO HS 04/20/16 [History Confirmed 06/06/17] Triamcinolone Acetonide [Nasacort] 2 sprays IH DAILY 04/20/16 [History Confirmed 06/06/17] Cyanocobalamin (Vitamin B-12) [Vitamin B12] 2,500 mcg PO DAILY 10/09/16 [ History Confirmed 06/06/17] Dulaglutide [Trulicity] 0.75 mg SQ WEEKLY 10/09/16 [History Confirmed 06/06/17] Folic Acid 1 mg PO BID 10/09/16 [History Confirmed 06/06/17] Pyridoxine HCl 100 mg [Vitamin B-6 (Pyridoxine) 100 MG] 100 mg PO BID 01/18 [History Confirmed 06/06/17] Sucralfate 1 gm [Carafate 1 GM] 1 g PO ACHS #28 tablet 10/16/16 [Rx Confirmed 06/06/17] Albuterol Sulfate [Ventolin Hfa] 8 gm IH Q4HPRN PRN 12/21/16 [History Confirmed 06/06/17] Aripiprazole 2 mg PO DAILY 12/21/16 [History Confirmed 06/06/17] Insulin Detemir [Levemir] 7 units SQ DAILY 12/21/16 [History Confirmed 06/06/17] Propranolol HCl [Propranolol HCl ER] 80 mg PO DAILY 12/21/16 [History Confirmed 06/06/17] Sertraline HCl 50 mg [Zoloft 50 mg Tablet] 50 mg PO DAILY 12/21/16 [History Confirmed 06/06/17] Gabapentin 400 mg [Neurontin 400 MG] 1,200 mg PO TID #270 capsule [Rx Confirmed 06/06/17] Magnesium Oxide 400 mg [Mag-Ox 400] 400 mg PO HS 03/10/17 [History Confirmed 06/06/17] Oxycodone HCl/Acetaminophen [Percocet 10-325 mg Tablet] 1 each PO Q4HPRN PRN 12/18 [History Confirmed 06/06/17] Naproxen 500 mg [Naprosyn 500 MG] 500 mg PO BID 3 Days #6 tablet 03/16/17 [Rx Confirmed 06/06/17] Allergies/Adverse Reactions: Allergies Allergy/AdvReac Type Severity Reaction Status Date / Time aspirin Allergy Mild Verified 06/01/17 21:56 codeine [Codeine] Allergy Mild Verified 06/01/17 21:56 fluoxetine HCl [From Prozac] Allergy Mild Verified 06/01/17 21:56 Penicillins Allergy Mild Verified 06/01/17 21:56 promethazine HCl Allergy Mild tremors Verified 06/01/17 21:56 [From Phenergan] doxycycline hyclate AdvReac Verified 06/01/17 21:56 [From Vibra-Tabs] steroid from breathing Allergy Mild Uncoded 06/01/17 21:56 treatment - Past Medical History Past Medical History: Yes Neurological History: Epilepsy, Seizures, Stroke ENT History: No Pertinent History Cardiac History: Hypertension, Other Respiratory History: Asthma, Pneumonia Endocrine Medical History: Diabetes Type I, Hypothyroidism Musculoskelatal History: Other GI Medical History: GERD, Hernia History: No Pertinent History Pyscho-Social History: Anxiety, Bipolar, Depression, Panic Disorder Reproductive Disorders: Endometriosis Comment: A FIB, MVP W/ REGURGITATION, HTN; HX R KNEE PN\\. home 02 - Female History Are you now?: No - Past Surgical History Past Surgical History: Yes Neuro Surgical History: No Pertinent History Cardiac History: Cardiac Catheterization Respiratory Surgery: No Pertinent History GI Surgical History: Cholecystectomy, Hernia Repair Genitourinary Surgical Hx: No Pertinent History Musculskeletal Surgical Hx: Joint Replacement, Orthopedic Surgery Female Surgical History: Hysterectomy Other Surgical History: torn miniscus and implant-RT KNEE" partial scope replacement" - Social History Smoking Status: Never smoker How long have you smoked: 25 Exposure to second hand smoke: No Alcohol: None Drug Use: none Significant Family History: no pertinent family hx, heart disease, diabetes, hypertension - Physical Exam Vital Signs: Vital Signs - 24 hr Temp Pulse Resp BP Pulse Ox 06/07/17 07:19 98.1 F 81 16 89/50 92 L 06/07/17 07:00 76 20 93 L 06/07/17 04:00 98.4 F 92 H 20 105/56 90 L 06/07/17 02:47 87 20 90 L 01/03/18 22:41 92 H 20 94 L 06/06/17 21:00 99.2 F 93 H 20 100/54 94 L 06/06/17 19:55 97 H 18 106/57 96 06/06/17 19:16 102 H 20 107/57 94 L 06/06/17 18:32 111 H 20 95 06/06/17 18:20 110 H 20 117/64 96 06/06/17 18:03 96 06/06/17 17:28 99.5 F 123 H 22 118/78 96 Oxygen-Last 24 hours O2 Percentage 4 Liters = 36% O2 Percentage 4 Liters = 36% O2 Percentage 4 Liters = 36% O2 Percentage 4 Liters = 36% O2 Percentage 4 Liters = 36% O2 Percentage 4 Liters = 36% O2 Percentage 4 Liters = 36% General Appearance: no apparent distress, alert Neurologic Exam: oriented x 3, cooperative Eye Exam: eyes nml inspection Ears, Nose, Throat Exam: moist mucous membranes Neck Exam: normal inspection, non-tender, No lymphadenopathy Respiratory Exam: diminished breath sounds (good air exchange), prolonged expirations, rhonchi (bilateral, scattered), wheezing (scattered) Cardiovascular Exam: regular rate/rhythm, normal heart sounds, No murmur Gastrointestinal/Abdomen Exam: soft, normal bowel sounds, tenderness (epigastrum ), No mass, No guarding, No rebound Back Exam: normal inspection, No rash Extremity Exam: No pedal edema, No swelling Results - Labs Lab/Micro Results: Accuchecks Date 06/07/17 Date 06/06/17 Time 07:39 Time 18:00 Accucheck Value: 140 Lab Results-Last 24 Hours 06/07/17 06/07/17 06/07/17 Range/Units 05:00 05:00 05:59 WBC 11.0 H (4.0-10.5) K/mm3 RBC 3.77 L (4.1-5.4) M/mm3 Hgb 10.3 L (12.0-16.0) gm/dl Hct 33.4 L (35-47) % MCV 88.6 (78-100) fl MCH 27.3 (26-32) pg MCHC 30.8 L (32-36) g/dl RDW 13.5 (11.5-14.0) % Plt Count 203 (150-450) K/mm3 MPV 10.9 H (6-9.5) fl Gran % 92.8 H (36.0-66.0) % Lymphocytes % 5.5 L (24.0-44.0) % Monocytes % 1.6 (0.0-12.0) % Eosinophils % 0.0 (0.00-5.0) % Basophils % 0.1 (0.0-0.4) % Basophils # 0.01 (0-0.4) Sodium 141 (136-145) mEq/L Potassium 4.1 (3.5-5.1) mEq/L Chloride 107 (98-107) mEq/L Carbon Dioxide 23.9 (21-32) mEq/L Anion Gap 13.9 (5-15) MEQ/L BUN 7 L (9-20) mg/dL Creatinine 0.80 (0.55-1.30) mg/dl Estimated GFR > 60 ML/MIN Glucose 190 H (70-110) MG/DL Lactic Acid 2.6 H (0.4-2.0) Calcium 8.8 (8.5-10.1) mg/dL Total Bilirubin 0.20 (0.2-1.0) mg/dL AST 13 L (15-37) U/L ALT 14 (12-78) U/L Alkaline Phosphatase 124 H (46-116) U/L Serum Total Protein 7.1 (6.4-8.2) gm/dL Albumin 3.4 (3.4-5.0) g/dL 06/07/17 Range/Units 08:22 WBC (4.0-10.5) K/mm3 RBC (4.1-5.4) M/mm3 Hgb (12.0-16.0) gm/dl Hct (35-47) % MCV (78-100) fl MCH (26-32) pg MCHC (32-36) g/dl RDW (11.5-14.0) % Plt Count (150-450) K/mm3 MPV (6-9.5) fl Gran % (36.0-66.0) % Lymphocytes % (24.0-44.0) % Monocytes % (0.0-12.0) % Eosinophils % (0.00-5.0) % Basophils % (0.0-0.4) % Basophils # (0-0.4) Sodium (136-145) mEq/L Potassium (3.5-5.1) mEq/L Chloride (98-107) mEq/L Carbon Dioxide (21-32) mEq/L Anion Gap (5-15) MEQ/L BUN (9-20) mg/dL Creatinine (0.55-1.30) mg/dl Estimated GFR ML/MIN Glucose (70-110) MG/DL Lactic Acid 2.6 H (0.4-2.0) Calcium (8.5-10.1) mg/dL Total Bilirubin (0.2-1.0) mg/dL AST (15-37) U/L ALT (12-78) U/L Alkaline Phosphatase (46-116) U/L Serum Total Protein (6.4-8.2) gm/dL Albumin (3.4-5.0) g/dL Accuchecks Date 06/07/17 Date 06/06/17 Time 07:39 Time 18:00 Accucheck Value: 140 - Other Procedures and Tests Respiratory Therapy 06/06/17 21:51 neb [Respiratory Nebulizer] UD 06/06/17 23:00 neb [Respiratory Nebulizer] Q4H Assessment/Plan (1) Pneumonia Current Visit: No Status: Acute Qualifiers: Pneumonia type: due to unspecified organism Laterality: bilateral Lung location: unspecified part of lung Qualified Code(s): J18.9 - Pneumonia, unspecified organism Assessment & Plan: on zithromax and rocephin. Lactate elevated to 2.6, 2.7 - will give anther 1L of fluid and recheck. Code(s): J18.9 - PNEUMONIA, UNSPECIFIED ORGANISM (2) Port catheter in place Current Visit: No Status: Acute Assessment & Plan: nonfunctioning - will investigate. Pt is interested in another port if this one cannot be used. Code(s): Z95.828 - PRESENCE OF OTHER VASCULAR IMPLANTS AND GRAFTS (3) Depression Current Visit: No Status: Chronic Qualifiers: Depression Type: major depressive disorder Active/Remission status: currently active Major depression episode severity: moderate Assessment & Plan: no suicidal ideation. Code(s): F32.9 - MAJOR DEPRESSIVE DISORDER, SINGLE EPISODE, UNSPECIFIED (4) Diabetes type 2, controlled Current Visit: No Status: Chronic Qualifiers: Diabetes mellitus complication status: with neurologic complications Diabetes mellitus complication detail: with polyneuropathy Diabetes mellitus assistant terminal manager insulin use: with chcf use Qualified Code(s): E11.42 - Type 2 diabetes mellitus with diabetic polyneuropathy; Z79.4 - long term care social worker (current) use of insulin; Z79.4 - USP (current) use of insulin; Z79.4 - USP ( current) use of insulin; Z79.4 - long term care social worker (current) use of insulin Code(s): E11.9 - TYPE 2 DIABETES MELLITUS WITHOUT COMPLICATIONS
[2017-06-07] MEDS: Cardizem CD 180 MG PO SCH (09:42)
[2017-06-07] MEDS: Cyclobenzaprine 10 MG PO SCH ×2 (09:43→22:29)
[2017-06-07] MEDS: Neurontin 400 MG PO SCH ×3 (09:44→22:30)
[2017-06-07] MEDS: Naprosyn 500 MG PO SCH (09:46)
[2017-06-07] MEDS: lamICTAL 100MG TABLET PO SCH ×2 (09:47→22:30)
[2017-06-07] MEDS ORDERED: PROTONIX 40 MG IV IV SCH (10:00)
[2017-06-07] MEDS ORDERED: POTASSIUM CHL 40 MEQ/30 ML ORAL SOLUTION PO SCH (10:00)
[2017-06-07] MEDS ORDERED: Lidoderm Patch 5% TOP SCH (10:00)
[2017-06-07] MEDS ORDERED: NON-FORMULARY ITEM (Dulaglutide [Trulicity] 0.75 MG) SQ SCH (10:30)
[2017-06-07] MEDS ORDERED: MEDICATION INTERVENTION MC PRN (10:35)
[2017-06-07] MEDS: Valium 5 MG PO PRN (11:23)
[2017-06-07] MEDS: SYNTHROID 100 MCG PO SCH (11:23)
[2017-06-07] MEDS: PLAVIX 75 MG Tablet PO SCH (11:23)
[2017-06-07] MEDS: FOLATE 1 MG PO SCH ×2 (11:24→22:29)
[2017-06-07] MEDS: Lantus Insulin SQ SCH (11:24)
[2017-06-07] MEDS: NON-FORMULARY ITEM (Propranolol Hcl [Propranolol Hcl Er] 0 MG) PO SCH (11:25)
[2017-06-07] MEDS: ARIPIPRAZOLE PO SCH (11:25)
[2017-06-07] MEDS: ZOLOFT 50 MG TABLET PO SCH (11:26)
[2017-06-07] MEDS: Flonase NASAL NS SCH (11:28)
[2017-06-07 11:39] LABS: Lactic Acid 1.9 (0.4-2.0)
[2017-06-07] MEDS: Zofran 4 MG/2 ML VIAL IV PRN ×2 (14:14→23:21)
[2017-06-07] MEDS: ROCEPHIN 1 Gm-D5w 50 ml Bag** 1 G/50 ML IVPB IV SCH (20:29)
[2017-06-07] MEDS: MAG-OX 400 PO SCH (22:29)
[2017-06-07] MEDS: ZOCOR 20MG PO SCH (22:30)
[2017-06-07] MEDS: Desyrel 150 MG PO SCH (22:30)
[2017-06-07] MEDS: Zithromax 500 MG/ 250 ML NaCl Premix 500 MG/250 ML IVPB IV SCH (22:34)
[2017-06-08] MEDS: MORPHINE SULFATE 2 MG INJ IV PRN ×5 (00:47→18:56)
[2017-06-08] MEDS: DUONEB 0.5-3 MG/3 ml Neb IH SCH ×6 (02:44→22:29)
[2017-06-08] MEDS: Sodium Chloride 0.9% 1000 ML 1,000 ML IV SCH ×3 (02:57→21:18)
[2017-06-08] MEDS: Valium 5 MG PO PRN (03:01)
[2017-06-08] MEDS: Carafate 1 GM PO SCH ×4 (07:43→21:24)
--- NOTE | 2017-06-08 08:38 | PCM.NOTE ---
Date and Time: 06/08/17 0834 Subjective Assessment: Breathing is better but still quite tight at times. She hasn't slept, definitely did not sleep overnight per pt. - Review of Systems Constitutional: No Fever Respiratory: Cough, Short Of Breath Objective Exam General Appearance: no apparent distress, alert Neurologic Exam: oriented x 3, cooperative Skin Exam: normal color, warm, dry, No rash Eye Exam: eyes nml inspection Neck Exam: normal inspection Respiratory Exam: diminished breath sounds, prolonged expirations, rhonchi (RLL> LLL), wheezing (RUL) Cardiovascular Exam: regular rate/rhythm, normal heart sounds, No murmur OBJECTIVE DATA Vital Signs: Vital Signs - 24 hr Temp Pulse Resp BP Pulse Ox 06/08/17 07:34 75 20 97 06/08/17 07:22 97.8 F 80 20 96/51 95 06/08/17 03:55 98.3 F 83 20 125/73 98 06/08/17 02:45 77 20 97 06/08/17 00:00 98.5 F 85 20 103/66 94 L 06/07/17 23:41 82 18 97 06/07/17 20:00 98.5 F 74 20 112/72 96 06/07/17 19:50 77 16 97 06/07/17 16:00 98.1 F 85 18 108/67 95 06/07/17 14:46 89 18 94 L 06/07/17 11:55 98.6 F 90 18 116/56 91 L 06/07/17 10:35 87 18 93 L Oxygen-Last 24 hours O2 Percentage 4 Liters = 36% O2 Percentage 4 Liters = 36% O2 Percentage 4 Liters = 36% O2 Percentage 4 Liters = 36% Pain Assessment - Last Documented Pain Intensity 9 Pain Scale Used 0-10 Pain Scale Intake and Output: Intake & Output 06/05/17 06/06/17 06/07/17 06/08/17 11:59 11:59 11:59 11:59 Intake Total 2434 Output Total 2500 Balance -66 Weight 87.997 kg Lab Results: Accuchecks Date 06/08/17 Date 06/07/17 Date 06/07/17 Date 06/07/17 Time 07:30 Time 22:00 Time 16:30 Time 11:03 Accucheck Value: 126 Accucheck Value: 106 Accucheck Value: 121 Accucheck Value: 175 Lab Results-Last 24 Hours 06/07/17 06/07/17 Range/Units 11:30 14:45 Hemoglobin A1c 5.4 (4.5-6.2) Lactic Acid 1.9 (0.4-2.0) Multi-Disciplinary Progress Notes: Multi-Disciplinary Progress Notes 06/07/17 12:15 Case Management Note by Mis Hebert DID TALK TO PATIENT AT THE REQUEST OF THE PRIMARY NURSE REGARDING REASONING FOR REPLACEMENT OF PORT A CATH DONE ON AN OUTPATIENT BASIS. ARRANGEMENT HAVE BEEN MADE TO DO OUTPATIENT PER DR. LATIF AND DR. RIOS. PATIENT WANTS IT DONE NOW. DR. LATIF HAS REFUSED. EXPLAINED TO MS STARK THE RISKS OF DOING AT THIS TIME, WHEN SHE CLEARLY HAS AN INFECTION... RISKS INCLUDING BLOOD INFECTION. SHE DOES NOT AGREE SHE STATES SHE HAD TO HAVE A PICC LINE WHEN SHE WAS ILL BEFORE. ADVISED THAT THAT WAS AN EMERGENT SITUATION AND THIS TIME IT IS NOT, AND WE DO NOT TAKE RISKS WITH OUR PATIENTS. AT THIS TIME SHE VERBALIZED UNDERSTANDING AND WAS REQUESTED TO CALL FOR ME AT ANYTIME. Initialized on 06/07/17 12:15 - END OF NOTE Assessment/Plan (1) Pneumonia Current Visit: No Status: Acute Qualifiers: Pneumonia type: due to unspecified organism Laterality: bilateral Lung location: unspecified part of lung Qualified Code(s): J18.9 - Pneumonia, unspecified organism Assessment & Plan: On Rocephin and zithromax, day #3 (can stop zithromax after today). Some improvement, but will probably need at least 2 more days of IV antibiotics before discharge to home. Code(s): J18.9 - PNEUMONIA, UNSPECIFIED ORGANISM (2) Port catheter in place Current Visit: No Status: Acute Assessment & Plan: Completely unable to access port. Surgery consulted for possible placement. I understood they would be doing this outpatient, but pt thinks Isai in surgery told her that when her condition improves they will do it inpatient. Code(s): Z95.828 - PRESENCE OF OTHER VASCULAR IMPLANTS AND GRAFTS (3) Depression Current Visit: No Status: Chronic Qualifiers: Depression Type: major depressive disorder Active/Remission status: currently active Major depression episode severity: moderate Code(s): F32.9 - MAJOR DEPRESSIVE DISORDER, SINGLE EPISODE, UNSPECIFIED (4) Diabetes type 2, controlled Current Visit: No Status: Chronic Qualifiers: Diabetes mellitus complication status: with neurologic complications Diabetes mellitus complication detail: with polyneuropathy Diabetes mellitus senior care insulin use: with senior care use Qualified Code(s): E11.42 - Type 2 diabetes mellitus with diabetic polyneuropathy; Z79.4 - extermination supervisor (current) use of insulin; Z79.4 - [facility] (current) use of insulin; Z79.4 - extermination supervisor ( current) use of insulin; Z79.4 - [facility] (current) use of insulin Assessment & Plan: 106-181. Code(s): E11.9 - TYPE 2 DIABETES MELLITUS WITHOUT COMPLICATIONS
[2017-06-08] MEDS: Cyclobenzaprine 10 MG PO SCH ×2 (09:02→21:24)
[2017-06-08] MEDS: Protonix 40MG Tablet PO SCH (09:02)
[2017-06-08] MEDS: Ativan 1 MG PO ONE ×2 (09:02→10:00)
[2017-06-08] MEDS: PLAVIX 75 MG Tablet PO SCH (09:02)
[2017-06-08] MEDS: lamICTAL 100MG TABLET PO SCH ×2 (09:04→21:24)
[2017-06-08] MEDS: Neurontin 400 MG PO SCH ×3 (09:04→21:24)
[2017-06-08] MEDS: ZOLOFT 50 MG TABLET PO SCH (09:04)
[2017-06-08] MEDS: ARIPIPRAZOLE PO SCH (09:04)
[2017-06-08] MEDS: SYNTHROID 100 MCG PO SCH (09:04)
[2017-06-08 09:05] LABS: Hematocrit 30.8 % (35-47); Hemoglobin 9.3 gm/dl (12.0-16.0); Mean Cell Volume 91.1 fl (78-100); Mean Corpuscular Hemoglobin 27.5 pg (26-32); Mean Corpuscular Hgb Concent. 30.2 g/dl (32-36); Platelet Count 178 K/mm3 (150-450); Red Blood Count 3.38 M/mm3 (4.1-5.4); Red Cell Distribution Width 13.9 % (11.5-14.0); White Blood Count 8.6 K/mm3 (4.0-10.5)
[2017-06-08] MEDS: Flonase NASAL NS SCH (09:05)
[2017-06-08] MEDS: Cardizem CD 180 MG PO SCH (09:05)
[2017-06-08] MEDS: NON-FORMULARY ITEM (Propranolol Hcl [Propranolol Hcl Er] 0 MG) PO SCH (09:06)
[2017-06-08] MEDS: Lantus Insulin SQ SCH (09:15)
[2017-06-08] MEDS: FOLATE 1 MG PO SCH ×2 (09:15→22:07)
[2017-06-08] MEDS: Lidoderm Patch 5% TOP PRN ×2 (10:00→15:13)
[2017-06-08] MEDS ORDERED: TRIAMCINOLONE ACETONIDE IH SCH (10:00)
[2017-06-08] MEDS ORDERED: INSULIN DETEMIR 7 UNIT SQ SCH (10:00)
[2017-06-08] MEDS ORDERED: NON-FORMULARY ITEM (Propranolol Hcl [Propranolol Hcl Er] 80 MG) PO SCH (10:00)
[2017-06-08] MEDS ORDERED: ARIPIPRAZOLE 2 MG PO SCH (10:00)
[2017-06-08 10:01] LABS: ANION GAP 13.6 MEQ/L (5-15); BLOOD UREA NITROGEN 5 mg/dL (9-20); CHLORIDE 109 mEq/L (98-107); Calcium 8.5 mg/dL (8.5-10.1); Carbon Dioxide 26.2 mEq/L (21-32); Creatinine 1 0.68 mg/dl (0.55-1.30); EST GLOMERULAR FILTRATION RATE > 60 ML/MIN; Glucose 96 MG/DL (70-110); Potassium 3.6 mEq/L (3.5-5.1); SODIUM 145 mEq/L (136-145)
[2017-06-08] MEDS: ROCEPHIN 1 Gm-D5w 50 ml Bag** 1 G/50 ML IVPB IV SCH (21:23)
[2017-06-08] MEDS: ZOCOR 20MG PO SCH (21:24)
[2017-06-08] MEDS: MAG-OX 400 PO SCH (21:24)
[2017-06-08] MEDS: Desyrel 150 MG PO SCH (21:24)
[2017-06-08] MEDS: Zithromax 500 MG/ 250 ML NaCl Premix 500 MG/250 ML IVPB IV SCH (22:07)
[2017-06-09] MEDS: MORPHINE SULFATE 2 MG INJ IV PRN ×5 (01:32→20:55)
[2017-06-09] MEDS: DUONEB 0.5-3 MG/3 ml Neb IH SCH ×6 (03:31→23:35)
[2017-06-09] MEDS: OXYCODONE-ACETAMINOPHEN 10-325 PO PRN ×3 (04:16→18:01)
[2017-06-09 06:54] LABS: Hematocrit 28.8 % (35-47); Hemoglobin 8.6 gm/dl (12.0-16.0); Mean Corpuscular Hgb Concent. 29.9 g/dl (32-36); Mean Platelet Volume 10.7 fl (6-9.5); Platelet Count 187 K/mm3 (150-450); Red Blood Count 3.13 M/mm3 (4.1-5.4); Red Cell Distribution Width 13.8 % (11.5-14.0); White Blood Count 7.3 K/mm3 (4.0-10.5)
[2017-06-09 07:09] LABS: Mean Corpuscular Hemoglobin 27.4 pg (26-32)
[2017-06-09] MEDS: Neurontin 400 MG PO SCH ×3 (07:17→21:02)
[2017-06-09] MEDS: FOLATE 1 MG PO SCH ×2 (07:17→21:03)
[2017-06-09] MEDS: Carafate 1 GM PO SCH ×4 (07:17→21:03)
[2017-06-09] MEDS: PLAVIX 75 MG Tablet PO SCH (07:17)
[2017-06-09] MEDS: Protonix 40MG Tablet PO SCH (07:18)
[2017-06-09] MEDS: lamICTAL 100MG TABLET PO SCH ×2 (07:18→21:02)
[2017-06-09] MEDS: ZOLOFT 50 MG TABLET PO SCH (07:18)
[2017-06-09] MEDS: SYNTHROID 100 MCG PO SCH (07:18)
[2017-06-09] MEDS: Cyclobenzaprine 10 MG PO SCH ×2 (07:18→21:03)
[2017-06-09] MEDS: Lantus Insulin SQ SCH (07:19)
[2017-06-09] MEDS: Flonase NASAL NS SCH (07:19)
[2017-06-09 07:20] LABS: ANION GAP 7.1 MEQ/L (5-15); BLOOD UREA NITROGEN 3 mg/dL (9-20); CHLORIDE 109 mEq/L (98-107); Calcium 8.2 mg/dL (8.5-10.1); Carbon Dioxide 33.2 mEq/L (21-32); Creatinine 1 0.64 mg/dl (0.55-1.30); EST GLOMERULAR FILTRATION RATE > 60 ML/MIN; Glucose 80 MG/DL (70-110); Potassium 3.4 mEq/L (3.5-5.1); SODIUM 146 mEq/L (136-145)
[2017-06-09] MEDS: Sodium Chloride 0.9% 1000 ML 1,000 ML IV SCH (07:20)
[2017-06-09] MEDS: Cardizem CD 180 MG PO SCH (07:24)
[2017-06-09] MEDS: NON-FORMULARY ITEM (Propranolol Hcl [Propranolol Hcl Er] 0 MG) PO SCH (07:25)
[2017-06-09] MEDS: ARIPIPRAZOLE PO SCH (07:26)
[2017-06-09] MEDS ORDERED: Klor Con 10 MEQ PO ONE (09:43)
--- NOTE | 2017-06-09 09:43 | PCM.NOTE ---
Date and Time: 06/09/17 0937 Subjective Assessment: Patient reports her nurse got her up to walk and she got very short of breath. She feels like when she is just lying she doesn't get as short of breath. She reports she is on oxygen 4L at home. She is concerned about when surgery is planning on replacing her port as it is not working. - Review of Systems Constitutional: Fatigue Eyes: No Symptoms Ears, Nose, & Throat: No Symptoms Respiratory: Cough, Short Of Breath Cardiac: No Symptoms Abdominal/Gastrointestinal: No Symptoms Genitourinary Symptoms: No Symptoms Musculoskeletal: No Symptoms Objective Exam General Appearance: no apparent distress, alert Neurologic Exam: alert, cooperative, normal mood/affect Skin Exam: normal color, warm, dry, No rash Respiratory Exam: airway intact, other (scattered wheezes throughout, equal breath sounds), No respiratory distress, No accessory muscle use, No crackles/ rales Cardiovascular Exam: regular rate/rhythm, normal heart sounds, No murmur, No friction rub, No gallop Gastrointestinal/Abdomen Exam: soft, normal bowel sounds, No tenderness, No distention, No mass Extremity Exam: other (no c/c/e) OBJECTIVE DATA Vital Signs: Vital Signs - 24 hr Temp Pulse Resp BP Pulse Ox 06/09/17 07:27 78 126/75 06/09/17 07:25 97.7 F 75 18 96/54 98 06/09/17 07:00 82 18 96 06/09/17 04:20 97.7 F 78 20 123/61 95 06/09/17 03:32 97 H 18 95 06/08/17 23:50 98.3 F 100 H 20 106/54 96 06/08/17 22:29 100 H 18 94 L 06/08/17 20:34 98.4 F 82 16 115/55 96 06/08/17 19:02 81 20 97 06/08/17 16:25 97.8 F 92 H 20 108/60 97 06/08/17 15:18 90 20 96 06/08/17 12:10 97.8 F 93 H 20 107/59 92 L 06/08/17 10:59 87 18 96 Oxygen-Last 24 hours O2 Percentage 4 Liters = 36% O2 Percentage 4 Liters = 36% O2 Percentage 4 Liters = 36% O2 Percentage 4 Liters = 36% O2 Percentage 4 Liters = 36% Pain Assessment - Last Documented Pain Intensity 6 Pain Scale Used 0-10 Pain Scale Intake and Output: Intake & Output 06/07/17 06/08/17 06/09/17 06/10/17 06:59 06:59 06:59 06:59 Intake Total 2434 3441 Output Total 7393 1900 Balance -66 1541 Weight 87.997 kg 90.718 kg Lab Results: Accuchecks Date 06/09/17 Date 06/08/17 Date 06/08/17 Date 06/08/17 Time 07:16 Time 22:00 Time 16:30 Time 11:21 Accucheck Value: 81 Accucheck Value: 134 Accucheck Value: 111 Accucheck Value: 138 Lab Results-Last 24 Hours 06/08/17 06/09/17 06/09/17 Range/Units 09:00 05:45 05:45 WBC 7.3 (4.0-10.5) K/mm3 RBC 3.13 L (4.1-5.4) M/mm3 Hgb 8.6 L (12.0-16.0) gm/dl Hct 28.8 L (35-47) % MCV 92.0 (78-100) fl MCH 27.4 (26-32) pg MCHC 29.9 L (32-36) g/dl RDW 13.8 (11.5-14.0) % Plt Count 187 (150-450) K/mm3 MPV 10.7 H (6-9.5) fl Sodium 145 146 H (136-145) mEq/L Potassium 3.6 3.4 L (3.5-5.1) mEq/L Chloride 109 H 109 H (98-107) mEq/L Carbon Dioxide 26.2 33.2 H (21-32) mEq/L Anion Gap 13.6 7.1 (5-15) MEQ/L BUN 5 L 3 L (9-20) mg/dL Creatinine 0.68 0.64 (0.55-1.30) mg/dl Estimated GFR > 60 > 60 ML/MIN Glucose 96 80 (70-110) MG/DL Calcium 8.5 8.2 L (8.5-10.1) mg/dL Multi-Disciplinary Progress Notes: Multi-Disciplinary Progress Notes 06/08/17 11:37 Case Management Note by Carli Garcia PT CONTINUES TO DENY ANY DC NEEDS. LIVES WITH , CHILDREN, GRANDCHILDREN. WILL CONTINUE TO MONITOR ALL D/C NEEDS. Initialized on 06/08/17 11:37 - END OF NOTE Assessment/Plan (1) Pneumonia Current Visit: Yes Status: Acute Qualifiers: Pneumonia type: due to unspecified organism Laterality: bilateral Lung location: lower lobe of lung Qualified Code(s): J18.9 - Pneumonia, unspecified organism Assessment & Plan: Continue ceftriaxone Day 4 and she has finished azithromycin. Continue oxygen as needed. Albuterol as needed. Code(s): J18.9 - PNEUMONIA, UNSPECIFIED ORGANISM (2) Diabetes type 2, controlled Current Visit: Yes Status: Acute Qualifiers: Diabetes mellitus complication status: without complication Assessment & Plan: Continue lantus daily and low dose sliding scale of novolog. Code(s): E11.9 - TYPE 2 DIABETES MELLITUS WITHOUT COMPLICATIONS (3) Hypernatremia Current Visit: Yes Status: Acute Assessment & Plan: Mild, most likely due to normal saline that was stated on 06/07/16 and continued. Will change to D5 1/2 NS and recheck BMP in AM. Code(s): E87.0 - HYPEROSMOLALITY AND HYPERNATREMIA (4) Anemia Current Visit: Yes Status: Acute Qualifiers: Anemia type: other cause Assessment & Plan: Continue to monitor. Code(s): D64.9 - ANEMIA, UNSPECIFIED
[2017-06-09] MEDS: Dextrose 5% -0.45 NaCl 1000 ML 1,000 ML IV SCH (10:20)
[2017-06-09] MEDS: Lidoderm Patch 5% TOP PRN (11:42)
[2017-06-09] MEDS: ROCEPHIN 1 Gm-D5w 50 ml Bag** 1 G/50 ML IVPB IV SCH (20:59)
[2017-06-09] MEDS: MAG-OX 400 PO SCH (21:02)
[2017-06-09] MEDS: Desyrel 150 MG PO SCH (21:02)
[2017-06-09] MEDS: ZOCOR 20MG PO SCH (21:03)
[2017-06-09] MEDS: Zithromax 500 MG/ 250 ML NaCl Premix 500 MG/250 ML IVPB IV SCH (22:26)
[2017-06-09] MEDS: Ativan 1 MG PO PRN (22:30)
[2017-06-10] MEDS: DUONEB 0.5-3 MG/3 ml Neb IH SCH ×6 (03:54→23:10)
[2017-06-10 06:11] LABS: ANION GAP 6.7 MEQ/L (5-15); BLOOD UREA NITROGEN 5 mg/dL (9-20); CHLORIDE 102 mEq/L (98-107); Calcium 8.9 mg/dL (8.5-10.1); Carbon Dioxide 35.9 mEq/L (21-32); Creatinine 1 0.73 mg/dl (0.55-1.30); EST GLOMERULAR FILTRATION RATE > 60 ML/MIN; Glucose 92 MG/DL (70-110); SODIUM 141 mEq/L (136-145)
[2017-06-10 06:13] LABS: BASOPHIL % 0.1 % (0.0-0.4); Basophil (Absolute #) 0.01 (0-0.4); Eosinophil (Absolute #) 1.03 (0-0.5); Granulocyte Absolute (ANC) 4.27 (1.4-6.9); Granulocytes % 54.2 % (36.0-66.0); Hematocrit 28.7 % (35-47); Hemoglobin 8.5 gm/dl (12.0-16.0); Lymphocyte (Absolute #) 1.97 (1.0-4.6); Lymphocytes % 24.9 % (24.0-44.0); Mean Cell Volume 92.6 fl (78-100); Mean Corpuscular Hemoglobin 27.4 pg (26-32); Mean Corpuscular Hgb Concent. 29.6 g/dl (32-36); Mean Platelet Volume 10.8 fl (6-9.5); Monocyte (Absolute #) 0.62 (0.0-1.3); Monocytes % 7.8 % (0.0-12.0); Platelet Count 204 K/mm3 (150-450); Red Cell Distribution Width 13.3 % (11.5-14.0); White Blood Count 7.9 K/mm3 (4.0-10.5)
[2017-06-10] MEDS: OXYCODONE-ACETAMINOPHEN 10-325 PO PRN ×2 (08:19→17:38)
[2017-06-10] MEDS: Carafate 1 GM PO SCH ×4 (08:20→22:23)
[2017-06-10] MEDS: Dextrose 5% -0.45 NaCl 1000 ML 1,000 ML IV SCH (08:25)
[2017-06-10] MEDS: Neurontin 400 MG PO SCH ×3 (10:59→22:25)
[2017-06-10] MEDS: ZOLOFT 50 MG TABLET PO SCH (11:00)
[2017-06-10] MEDS: Protonix 40MG Tablet PO SCH (11:00)
[2017-06-10] MEDS: PLAVIX 75 MG Tablet PO SCH (11:00)
[2017-06-10] MEDS: ARIPIPRAZOLE PO SCH (11:00)
[2017-06-10] MEDS: Cyclobenzaprine 10 MG PO SCH ×2 (11:00→22:24)
[2017-06-10] MEDS: FOLATE 1 MG PO SCH ×2 (11:00→22:24)
[2017-06-10] MEDS: lamICTAL 100MG TABLET PO SCH ×2 (11:00→22:24)
[2017-06-10] MEDS: Cardizem CD 180 MG PO SCH (11:00)
[2017-06-10] MEDS: ENOXAPARIN SODIUM SQ SCH (11:01)
[2017-06-10] MEDS: Lantus Insulin SQ SCH (11:01)
[2017-06-10] MEDS: Flonase NASAL NS SCH (11:03)
[2017-06-10] MEDS: SYNTHROID 100 MCG PO SCH (11:04)
[2017-06-10] MEDS: NON-FORMULARY ITEM (Propranolol Hcl [Propranolol Hcl Er] 0 MG) PO SCH (11:04)
[2017-06-10] MEDS: MORPHINE SULFATE 2 MG INJ IV PRN ×2 (11:07→15:37)
--- NOTE | 2017-06-10 15:03 | PCM.NOTE ---
Date and Time: 06/10/17 1455 Subjective Assessment: She reports she has been able to take some liquids. She continues to have chest pain from coughing. She reports nausea but no vomiting. She reports continued shortness of breath. - Review of Systems Constitutional: Weakness Eyes: No Symptoms Ears, Nose, & Throat: No Symptoms Respiratory: Cough, Short Of Breath, Wheezing Cardiac: Chest Pain Abdominal/Gastrointestinal: Nausea, No Vomiting Genitourinary Symptoms: No Symptoms Musculoskeletal: No Symptoms Skin: No Symptoms Objective Exam General Appearance: no apparent distress, alert Neurologic Exam: alert, cooperative, normal mood/affect Skin Exam: normal color, warm, No dry Respiratory Exam: airway intact, other (mild tachypnea, scattered wheezes throughout, scattered crackles throughout), No diminished breath sounds, No accessory muscle use Cardiovascular Exam: regular rate/rhythm, normal heart sounds, No murmur, No friction rub, No gallop Gastrointestinal/Abdomen Exam: soft, normal bowel sounds, No tenderness, No distention, No mass Extremity Exam: other (no c/c/e) OBJECTIVE DATA Vital Signs: Vital Signs - 24 hr Temp Pulse Resp BP Pulse Ox 06/10/17 11:54 98.5 F 72 18 107/62 97 06/10/17 11:00 82 18 96 06/10/17 07:50 72 20 94 L 06/10/17 07:41 99 F 98 H 18 98/57 92 L 06/10/17 04:00 98.6 F 71 16 91/51 93 L 06/10/17 03:54 69 20 93 L 06/10/17 00:27 98.2 F 67 14 87/43 96 06/09/17 23:35 70 16 93 L 06/09/17 20:20 98.4 F 60 16 100/45 96 06/09/17 19:47 61 18 96 06/09/17 16:43 98.2 F 59 L 18 91/51 98 06/09/17 15:00 74 18 96 Oxygen-Last 24 hours O2 Percentage 4 Liters = 36% O2 Percentage 4 Liters = 36% O2 Percentage 4 Liters = 36% O2 Percentage 4 Liters = 36% O2 Percentage 4 Liters = 36% Pain Assessment - Last Documented Pain Intensity 5 Pain Scale Used 0-10 Pain Scale Intake and Output: Intake & Output 06/08/17 06/09/17 06/10/1706/11/18 06:59 06:59 06:59 06:59 Intake Total 3617 1214 3621 Output Total 1853 4761 8020 Balance -66 1541 1332 Weight 87.997 kg 90.9 kg Lab Results: Accuchecks Date 06/10/17 Date 06/10/17 Date 06/09/16 Date 06/09/17 Time 11:30 Time 07:30 Time 22:00 Accucheck Value: 91 Accucheck Value: 101 Lab Results-Last 24 Hours 06/10/17 06/10/17 Range/Units 05:10 05:10 WBC 7.9 (4.0-10.5) K/mm3 RBC 3.10 L (4.1-5.4) M/mm3 Hgb 8.5 L (12.0-16.0) gm/dl Hct 28.7 L (35-47) % MCV 92.6 (78-100) fl MCH 27.4 (26-32) pg MCHC 29.6 L (32-36) g/dl RDW 13.3 (11.5-14.0) % Plt Count 204 (150-450) K/mm3 MPV 10.8 H (6-9.5) fl Gran % 54.2 (36.0-66.0) % Lymphocytes % 24.9 (24.0-44.0) % Monocytes % 7.8 (0.0-12.0) % Eosinophils % 13.0 H (0.00-5.0) % Basophils % 0.1 (0.0-0.4) % Basophils # 0.01 (0-0.4) Sodium 141 (136-145) mEq/L Potassium 4.0 (3.5-5.1) mEq/L Chloride 102 (98-107) mEq/L Carbon Dioxide 35.9 H (21-32) mEq/L Anion Gap 6.7 (5-15) MEQ/L BUN 5 L (9-20) mg/dL Creatinine 0.73 (0.55-1.30) mg/dl Estimated GFR > 60 ML/MIN Glucose 92 (70-110) MG/DL Calcium 8.9 (8.5-10.1) mg/dL Assessment/Plan (1) Pneumonia Current Visit: Yes Status: Acute Qualifiers: Pneumonia type: due to unspecified organism Laterality: bilateral Lung location: lower lobe of lung Qualified Code(s): J18.9 - Pneumonia, unspecified organism Assessment & Plan: Continue ceftriazone and azithromycin, oxygen as needed and breathing treatments. Code(s): J18.9 - PNEUMONIA, UNSPECIFIED ORGANISM (2) Diabetes type 2, controlled Current Visit: Yes Status: Acute Qualifiers: Diabetes mellitus complication status: without complication Assessment & Plan: Blood glucoses currently controlled. Code(s): E11.9 - TYPE 2 DIABETES MELLITUS WITHOUT COMPLICATIONS (3) Hypernatremia Current Visit: Yes Status: Acute Assessment & Plan: Sodium normal now with change in her IV fluids. Code(s): E87.0 - HYPEROSMOLALITY AND HYPERNATREMIA (4) Anemia Current Visit: Yes Status: Acute Qualifiers: Anemia type: other cause Assessment & Plan: Stable. Continue to monitor. Code(s): D64.9 - ANEMIA, UNSPECIFIED
[2017-06-10] MEDS: Desyrel 150 MG PO SCH (22:23)
[2017-06-10] MEDS: MAG-OX 400 PO SCH (22:24)
[2017-06-10] MEDS: ZOCOR 20MG PO SCH (22:26)
[2017-06-10] MEDS: ROCEPHIN 1 Gm-D5w 50 ml Bag** 1 G/50 ML IVPB IV SCH (22:27)
[2017-06-10] MEDS: Zithromax 500 MG/ 250 ML NaCl Premix 500 MG/250 ML IVPB IV SCH (22:54)
[2017-06-11] MEDS: OXYCODONE-ACETAMINOPHEN 10-325 PO PRN ×3 (01:51→18:51)
[2017-06-11] MEDS: DUONEB 0.5-3 MG/3 ml Neb IH SCH ×6 (02:26→23:42)
[2017-06-11] MEDS ORDERED: Sodium Chloride 0.9% 500 ML 500 ML IV ONE (04:12)
[2017-06-11] MEDS: Dextrose 5% -0.45 NaCl 1000 ML 1,000 ML IV SCH (06:15)
[2017-06-11] MEDS: Carafate 1 GM PO SCH ×4 (07:29→22:03)
--- NOTE | 2017-06-11 08:11 | PCM.NOTE ---
Date and Time: 06/11/17 0804 Subjective Assessment: Pt continues to have cough that is painful and non productive. Up to bed with some dizziness and weakness. Out walking in the [place], she has to stop 3-4 x to make it around the hallways. She would like a regular diet. Still concerned about getting her port re-done. - Review of Systems Constitutional: No Fever Respiratory: Cough, Short Of Breath Objective Exam General Appearance: no apparent distress, alert Neurologic Exam: oriented x 3, cooperative Skin Exam: normal color, warm, dry, No rash Respiratory Exam: diminished breath sounds, wheezing (expiratory, throughout), No crackles/rales, No rhonchi Cardiovascular Exam: regular rate/rhythm, normal heart sounds, No murmur Extremity Exam: normal inspection Back Exam: normal inspection, No rash OBJECTIVE DATA Vital Signs: Vital Signs - 24 hr Temp Pulse Resp BP Pulse Ox 06/11/17 07:50 98.2 F 66 18 90/51 97 06/11/17 07:00 63 16 97 06/11/17 04:00 98.1 F 66 15 81/44 96 06/11/17 02:27 67 22 93 L 06/11/17 00:13 98.0 F 67 16 96/54 98 06/10/17 23:00 82 22 95 06/10/17 20:00 98.2 F 72 16 96/59 95 06/10/17 15:58 98.7 F 87 18 104/60 95 06/10/17 15:00 88 18 94 L 06/10/17 11:54 98.5 F 72 18 107/62 97 06/10/17 11:00 82 18 96 Oxygen-Last 24 hours O2 Percentage 4 Liters = 36% O2 Percentage 4 Liters = 36% O2 Percentage 4 Liters = 36% Pain Assessment - Last Documented Pain Intensity 2 Pain Scale Used [facility] Intake and Output: Intake & Output 06/08/17 06/09/17 06/10/17 06/11/17 11:59 11:59 11:59 11:59 Intake Total 2434 3441 3682 2951 Output Total 2500 1900 2350 1650 Balance -66 1541 1332 1301 Weight 87.997 kg 90.718 kg 90.9 kg 91.354 kg Lab Results: Accuchecks Date 06/10/16 Date 06/10/17 Date 06/10/17 Time 22:00 Time 16:30 Time 11:30 Accucheck Value: 121 Accucheck Value: 137 Assessment/Plan (1) Pneumonia Current Visit: Yes Status: Acute Qualifiers: Pneumonia type: due to unspecified organism Laterality: bilateral Lung location: lower lobe of lung Qualified Code(s): J18.9 - Pneumonia, unspecified organism Assessment & Plan: On rocephin and zithromax, day #5 (d/c zithromax after today). Will add solumedrol for the wheezing. Add mucinex and tussionex. Code(s): J18.9 - PNEUMONIA, UNSPECIFIED ORGANISM (2) Port catheter in place Current Visit: No Status: Resolved Assessment & Plan: Will discuss with surgery. Currently she has IV access. Code(s): Z95.828 - PRESENCE OF OTHER VASCULAR IMPLANTS AND GRAFTS (3) Depression Current Visit: No Status: Chronic Qualifiers: Depression Type: major depressive disorder Active/Remission status: currently active Major depression episode severity: moderate Code(s): F32.9 - MAJOR DEPRESSIVE DISORDER, SINGLE EPISODE, UNSPECIFIED (4) Diabetes type 2, controlled Current Visit: No Status: Chronic Qualifiers: Diabetes mellitus complication status: with neurologic complications Diabetes mellitus complication detail: with polyneuropathy Diabetes mellitus buttermaker insulin use: with buttermaker use Qualified Code(s): E11.42 - Type 2 diabetes mellitus with diabetic polyneuropathy; Z79.4 - assistant terminal manager (current) use of insulin; Z79.4 - assistant terminal manager (current) use of insulin; Z79.4 - snf ( current) use of insulin; Z79.4 - assistant terminal manager (current) use of insulin Assessment & Plan: Will see what her BS are on her regular diet (however, I expect them to increase with the addition of steroids). Code(s): E11.9 - TYPE 2 DIABETES MELLITUS WITHOUT COMPLICATIONS
[2017-06-11] MEDS: solu-MEDROL 125 MG IV SCH ×3 (09:27→22:05)
[2017-06-11] MEDS: ARIPIPRAZOLE PO SCH (09:29)
[2017-06-11] MEDS: Cardizem CD 180 MG PO SCH (09:29)
[2017-06-11] MEDS: Flonase NASAL NS SCH (09:30)
[2017-06-11] MEDS: Cyclobenzaprine 10 MG PO SCH ×2 (09:30→22:03)
[2017-06-11] MEDS: ENOXAPARIN SODIUM SQ SCH (09:30)
[2017-06-11] MEDS: FOLATE 1 MG PO SCH ×2 (09:31→22:03)
[2017-06-11] MEDS: lamICTAL 100MG TABLET PO SCH ×2 (09:31→22:04)
[2017-06-11] MEDS: Neurontin 400 MG PO SCH ×3 (09:33→22:04)
[2017-06-11] MEDS: ZOLOFT 50 MG TABLET PO SCH (09:34)
[2017-06-11] MEDS: Protonix 40MG Tablet PO SCH (09:34)
[2017-06-11] MEDS: PLAVIX 75 MG Tablet PO SCH (09:34)
[2017-06-11] MEDS: SYNTHROID 100 MCG PO SCH (09:34)
[2017-06-11] MEDS: Lantus Insulin SQ SCH (09:35)
[2017-06-11] MEDS: Mucinex 600MG ER Tabs PO SCH ×2 (09:35→22:04)
[2017-06-11] MEDS: Zofran 4 MG/2 ML VIAL IV PRN (14:43)
[2017-06-11] MEDS: NON-FORMULARY ITEM (Propranolol Hcl [Propranolol Hcl Er] 0 MG) PO SCH (15:41)
[2017-06-11] MEDS: NovoLOG Insulin SQ PRN ×2 (16:23→23:48)
[2017-06-11] MEDS: ROCEPHIN 1 Gm-D5w 50 ml Bag** 1 G/50 ML IVPB IV SCH (22:02)
[2017-06-11] MEDS: Desyrel 150 MG PO SCH (22:03)
[2017-06-11] MEDS: MAG-OX 400 PO SCH (22:04)
[2017-06-11] MEDS: Lidoderm Patch 5% TOP PRN (22:05)
[2017-06-11] MEDS: ZOCOR 20MG PO SCH (22:05)
[2017-06-11] MEDS: MORPHINE SULFATE 2 MG INJ IV PRN (22:06)
[2017-06-11] MEDS: Zithromax 500 MG/ 250 ML NaCl Premix 500 MG/250 ML IVPB IV SCH (23:48)
[2017-06-12] MEDS: Ativan 1 MG PO PRN ×2 (02:38→04:19)
[2017-06-12] MEDS: Zofran 4 MG/2 ML VIAL IV PRN (02:38)
[2017-06-12] MEDS: OXYCODONE-ACETAMINOPHEN 10-325 PO PRN ×2 (02:41→18:13)
[2017-06-12] MEDS: DUONEB 0.5-3 MG/3 ml Neb IH SCH ×6 (04:37→23:29)
[2017-06-12] MEDS: solu-MEDROL 125 MG IV SCH ×3 (05:56→21:15)
[2017-06-12] MEDS: MORPHINE SULFATE 2 MG INJ IV PRN (07:55)
[2017-06-12] MEDS: Carafate 1 GM PO SCH ×4 (07:55→21:15)
--- NOTE | 2017-06-12 08:38 | PCM.NOTE ---
Date and Time: 06/12/17835 Subjective Assessment: Still SOB when walking in the [place]. Still coughing. Liam po well. - Review of Systems Constitutional: No Fever Respiratory: Cough, Short Of Breath Objective Exam General Appearance: no apparent distress, alert Neurologic Exam: oriented x 3, cooperative Skin Exam: normal color, warm, dry, No rash Respiratory Exam: normal breath sounds, wheezing (faint scattered exp wheeze), No crackles/rales, No rhonchi Cardiovascular Exam: regular rate/rhythm, normal heart sounds, No murmur Extremity Exam: No pedal edema, No swelling OBJECTIVE DATA Vital Signs: Vital Signs - 24 hr Temp Pulse Resp BP Pulse Ox 06/12/17 08:00 72 16 95 06/12/17 07:27 61 18 90/52 94 L 06/12/17 04:37 75 17 95 06/12/17 04:00 98.0 F 71 24 119/67 96 06/11/17 23:42 73 19 94 L 06/11/17 20:00 98.0 F 72 22 96/54 91 L 06/11/17 17:25 72 18 94 L 06/11/17 16:00 98.5 F 68 18 107/61 96 06/11/17 14:20 70 18 92 L 06/11/17 12:00 98.9 F 75 18 111/54 94 L 06/11/17 10:42 75 16 94 L Oxygen-Last 24 hours Oxygen Flowrate (L/min)-RT 4 Oxygen Flowrate (L/min)-RT 4 Oxygen Flowrate (L/min)-RT 4 Pain Assessment - Last Documented Pain Intensity 9 Pain Scale Used 0-10 Pain Scale Intake and Output: Intake & Output 06/09/17 06/10/17 06/11/17 06/12/17 11:59 11:59 11:59 11:59 Intake Total 3441 3682 2951 4196 Output Total 1900 2350 1650 7600 Balance 1541 1332 1301 -3404 Weight 90.718 kg 90.9 kg 91.354 kg 91.8 kg Lab Results: Accuchecks Date 06/12/17 Time 06:00 Accucheck Value: 192 Accucheck Value: 257 Accucheck Value: 234 Accucheck Value: 124 Multi-Disciplinary Progress Notes: Multi-Disciplinary Progress Notes 06/11/17 14:26 Nutrition Note by Gina Weiner F/u Note: Diet changed to regular per MD with 75-100% po intake. +fluid balance 1301 mls , weight 87.997 kg on adm; currently 91.354 kg. Labs 06/10 = BUN 5, glu wnl. goals met and ongoing. Recommend PENNY NCS diet. Will con't to monitor and f/u prn. T.JEWEL Weiner Initialized on 06/11/17 14:26 - END OF NOTE Assessment/Plan (1) Pneumonia Current Visit: Yes Status: Acute Qualifiers: Pneumonia type: due to unspecified organism Laterality: bilateral Lung location: lower lobe of lung Qualified Code(s): J18.9 - Pneumonia, unspecified organism Assessment & Plan: Sounds significantly better for the first time since I've seen her here. Likely home tomorrow or the next day. Continue IV steroids, I think they have made a big difference. Code(s): J18.9 - PNEUMONIA, UNSPECIFIED ORGANISM (2) Port catheter in place Current Visit: No Status: Resolved Assessment & Plan: As long as her access is good here, she may need to get the port placed outpatient. I certainly want her respiratory function back to baseline, ideally , before placement. Code(s): Z95.828 - PRESENCE OF OTHER VASCULAR IMPLANTS AND GRAFTS (3) Depression Current Visit: No Status: Chronic Qualifiers: Depression Type: major depressive disorder Active/Remission status: currently active Major depression episode severity: moderate Code(s): F32.9 - MAJOR DEPRESSIVE DISORDER, SINGLE EPISODE, UNSPECIFIED (4) Diabetes type 2, controlled Current Visit: No Status: Chronic Qualifiers: Diabetes mellitus complication status: with neurologic complications Diabetes mellitus complication detail: with polyneuropathy Diabetes mellitus senior care insulin use: with termite exterminator helper use Qualified Code(s): E11.42 - Type 2 diabetes mellitus with diabetic polyneuropathy; Z79.4 - retirement (current) use of insulin; Z79.4 - exterminator helper (current) use of insulin; Z79.4 - retirement ( current) use of insulin; Z79.4 - retirement (current) use of insulin Code(s): E11.9 - TYPE 2 DIABETES MELLITUS WITHOUT COMPLICATIONS
[2017-06-12 08:52] LABS: Hematocrit 33.1 % (35-47); Hemoglobin 10.1 gm/dl (12.0-16.0); Mean Corpuscular Hgb Concent. 30.5 g/dl (32-36); Mean Platelet Volume 10.5 fl (6-9.5); Platelet Count 261 K/mm3 (150-450); Red Blood Count 3.72 M/mm3 (4.1-5.4); Red Cell Distribution Width 13.1 % (11.5-14.0); White Blood Count 13.9 K/mm3 (4.0-10.5)
[2017-06-12] MEDS: PLAVIX 75 MG Tablet PO SCH (08:54)
[2017-06-12] MEDS: Mucinex 600MG ER Tabs PO SCH ×2 (08:54→21:15)
[2017-06-12] MEDS: FOLATE 1 MG PO SCH ×2 (08:54→21:16)
[2017-06-12] MEDS: Dextrose 5% -0.45 NaCl 1000 ML 1,000 ML IV SCH (08:54)
[2017-06-12] MEDS: ENOXAPARIN SODIUM SQ SCH (08:54)
[2017-06-12] MEDS: Neurontin 400 MG PO SCH ×3 (08:55→21:17)
[2017-06-12] MEDS: Cardizem CD 180 MG PO SCH (08:55)
[2017-06-12] MEDS: lamICTAL 100MG TABLET PO SCH ×2 (08:55→21:15)
[2017-06-12] MEDS: SYNTHROID 100 MCG PO SCH (08:55)
[2017-06-12] MEDS: Protonix 40MG Tablet PO SCH (08:55)
[2017-06-12] MEDS: Tussionex Pennkinetic Susp PO PRN ×2 (08:55→20:20)
[2017-06-12] MEDS: Cyclobenzaprine 10 MG PO SCH ×2 (08:55→21:16)
[2017-06-12] MEDS: ZOLOFT 50 MG TABLET PO SCH (08:55)
[2017-06-12] MEDS: Lantus Insulin SQ SCH (08:58)
[2017-06-12] MEDS: Flonase NASAL NS SCH (09:03)
[2017-06-12] MEDS: NON-FORMULARY ITEM (Propranolol Hcl [Propranolol Hcl Er] 0 MG) PO SCH (09:04)
[2017-06-12] MEDS: ARIPIPRAZOLE PO SCH (09:06)
[2017-06-12 09:13] LABS: Mean Corpuscular Hemoglobin 27.1 pg (26-32)
[2017-06-12 10:01] LABS: ANION GAP 10.7 MEQ/L (5-15); BLOOD UREA NITROGEN 6 mg/dL (9-20); CHLORIDE 104 mEq/L (98-107); Calcium 9.4 mg/dL (8.5-10.1); Carbon Dioxide 32.2 mEq/L (21-32); Creatinine 1 0.77 mg/dl (0.55-1.30); EST GLOMERULAR FILTRATION RATE > 60 ML/MIN; Glucose 144 MG/DL (70-110); Potassium 3.8 mEq/L (3.5-5.1); SODIUM 143 mEq/L (136-145)
[2017-06-12] MEDS: NovoLOG Insulin SQ PRN ×2 (17:07→21:13)
[2017-06-12] MEDS: Valium 5 MG PO PRN (18:13)
[2017-06-12] MEDS: Zithromax 500 MG/ 250 ML NaCl Premix 500 MG/250 ML IVPB IV SCH (21:10)
[2017-06-12] MEDS: Desyrel 150 MG PO SCH (21:15)
[2017-06-12] MEDS: MAG-OX 400 PO SCH (21:15)
[2017-06-12] MEDS: ZOCOR 20MG PO SCH (21:16)
[2017-06-12] MEDS: ROCEPHIN 1 Gm-D5w 50 ml Bag** 1 G/50 ML IVPB IV SCH (23:30)
[2017-06-13] MEDS: DUONEB 0.5-3 MG/3 ml Neb IH SCH ×5 (03:21→19:21)
[2017-06-13] MEDS: Valium 5 MG PO PRN ×2 (03:51→14:12)
[2017-06-13 06:15] LABS: ANION GAP 8.1 MEQ/L (5-15); BLOOD UREA NITROGEN 9 mg/dL (9-20); CHLORIDE 105 mEq/L (98-107); Calcium 8.8 mg/dL (8.5-10.1); Carbon Dioxide 32.9 mEq/L (21-32); Creatinine 1 0.84 mg/dl (0.55-1.30); EST GLOMERULAR FILTRATION RATE > 60 ML/MIN; Glucose 264 MG/DL (70-110); Potassium 3.6 mEq/L (3.5-5.1); SODIUM 142 mEq/L (136-145)
[2017-06-13 06:17] LABS: Granulocyte Absolute (ANC) 14.98 (1.4-6.9); Hematocrit 29.3 % (35-47); Hemoglobin 8.8 gm/dl (12.0-16.0); Mean Cell Volume 91.6 fl (78-100); Mean Corpuscular Hemoglobin 27.5 pg (26-32); Platelet Count 238 K/mm3 (150-450); Red Cell Distribution Width 13.3 % (11.5-14.0); White Blood Count 16.7 K/mm3 (4.0-10.5)
[2017-06-13] MEDS: Dextrose 5% -0.45 NaCl 1000 ML 1,000 ML IV SCH ×2 (06:38→23:02)
[2017-06-13] MEDS: OXYCODONE-ACETAMINOPHEN 10-325 PO PRN ×4 (06:38→20:51)
[2017-06-13] MEDS: solu-MEDROL 125 MG IV SCH (06:39)
[2017-06-13] MEDS: Flonase NASAL NS SCH (08:41)
--- NOTE | 2017-06-13 08:46 | PCM.NOTE ---
Date and Time: 06/13/17 0843 Subjective Assessment: She is still wondering if she can get her port replaced while she is here. States her cough and breathing are about the same. Up walking, has to rest periodically. - Review of Systems Constitutional: No Fever Respiratory: Cough, Short Of Breath Objective Exam General Appearance: no apparent distress, alert Neurologic Exam: oriented x 3, cooperative Skin Exam: normal color, warm, dry, No rash Respiratory Exam: normal breath sounds, lungs clear, No crackles/rales, No rhonchi, No wheezing Cardiovascular Exam: regular rate/rhythm, normal heart sounds, No murmur Gastrointestinal/Abdomen Exam: soft, normal bowel sounds, No tenderness, No distention, No guarding, No rebound Extremity Exam: normal inspection, No pedal edema, No swelling Back Exam: normal inspection, No rash OBJECTIVE DATA Vital Signs: Vital Signs - 24 hr Temp Pulse Resp BP Pulse Ox 06/13/17 07:44 97.8 F 69 20 111/65 97 06/13/17 07:00 71 18 98 06/13/17 04:20 98.1 F 71 16 106/59 93 L 06/13/17 03:22 72 16 93 L 06/13/17 00:12 98.7 F 71 16 112/65 96 06/12/17 23:30 72 18 96 06/12/17 20:29 98.3 F 80 20 122/73 95 06/12/17 19:01 79 18 95 06/12/17 16:00 67 18 107/55 95 06/12/17 14:57 16 06/12/17 11:43 98.5 F 75 18 111/62 90 L Oxygen-Last 24 hours O2 Percentage 4 Liters = 36% O2 Percentage 4 Liters = 36% O2 Percentage 4 Liters = 36% O2 Percentage 4 Liters = 36% Pain Assessment - Last Documented Pain Intensity 10 Pain Scale Used 0-10 Pain Scale Intake and Output: Intake & Output 06/10/17 06/11/17 06/12/17 06/13/17 11:59 11:59 11:59 11:59 Intake Total 3682 2951 4196 2563 Output Total 2350 1650 7600 2950 Balance 1332 6891 -0275 -414 Weight 90.9 kg 91.354 kg 91.8 kg 91.9 kg Lab Results: Accuchecks Date 06/12/17 Date 06/12/17 Time 16:30 Time 11:30 Accucheck Value: 236 Accucheck Value: 252 Accucheck Value: 193 Lab Results-Last 24 Hours 06/12/17 06/12/17 06/13/17 Range/Units 08:34 08:34 05:08 WBC 13.9 H 16.7 H (4.0-10.5) K/mm3 RBC 3.72 L 3.20 L (4.1-5.4) M/mm3 Hgb 10.1 L 8.8 L (12.0-16.0) gm/dl Hct 33.1 L 29.3 L (35-47) % MCV 89.0 91.6 (78-100) fl MCH 27.1 27.5 (26-32) pg MCHC 30.5 L 30.0 L (32-36) g/dl RDW 13.1 13.3 (11.5-14.0) % Plt Count 261 238 (150-450) K/mm3 MPV 10.5 H 11.0 H (6-9.5) fl Sodium 143 (136-145) mEq/L Potassium 3.8 (3.5-5.1) mEq/L Chloride 104 (98-107) mEq/L Carbon Dioxide 32.2 H (21-32) mEq/L Anion Gap 10.7 (5-15) MEQ/L BUN 6 L (9-20) mg/dL Creatinine 0.77 (0.55-1.30) mg/dl Estimated GFR > 60 ML/MIN Glucose 144 H (70-110) MG/DL Calcium 9.4 (8.5-10.1) mg/dL 06/13/17 Range/Units 05:08 WBC (4.0-10.5) K/mm3 RBC (4.1-5.4) M/mm3 Hgb (12.0-16.0) gm/dl Hct (35-47) % MCV (78-100) fl MCH (26-32) pg MCHC (32-36) g/dl RDW (11.5-14.0) % Plt Count (150-450) K/mm3 MPV (6-9.5) fl Sodium 142 (136-145) mEq/L Potassium 3.6 (3.5-5.1) mEq/L Chloride 105 (98-107) mEq/L Carbon Dioxide 32.9 H (21-32) mEq/L Anion Gap 8.1 (5-15) MEQ/L BUN 9 (9-20) mg/dL Creatinine 0.84 (0.55-1.30) mg/dl Estimated GFR > 60 ML/MIN Glucose 264 H (70-110) MG/DL Calcium 8.8 (8.5-10.1) mg/dL Assessment/Plan (1) Pneumonia Current Visit: Yes Status: Acute Qualifiers: Pneumonia type: due to unspecified organism Laterality: bilateral Lung location: lower lobe of lung Qualified Code(s): J18.9 - Pneumonia, unspecified organism Assessment & Plan: Much improved on IV antibiotics and steroids. Will decrease steroids; may be able to d/c home tomorrow. Code(s): J18.9 - PNEUMONIA, UNSPECIFIED ORGANISM (2) Port catheter in place Current Visit: No Status: Resolved Assessment & Plan: Pt has a hard time making to outpatient appts; however if surgery prefers to do outpatient placement we need to schedule that. She currently has IV access. Code(s): Z95.828 - PRESENCE OF OTHER VASCULAR IMPLANTS AND GRAFTS (3) Depression Current Visit: No Status: Chronic Qualifiers: Depression Type: major depressive disorder Active/Remission status: currently active Major depression episode severity: moderate Code(s): F32.9 - MAJOR DEPRESSIVE DISORDER, SINGLE EPISODE, UNSPECIFIED (4) Diabetes type 2, controlled Current Visit: No Status: Chronic Qualifiers: Diabetes mellitus complication status: with neurologic complications Diabetes mellitus complication detail: with polyneuropathy Diabetes mellitus parts counterman insulin use: with mcfp use Qualified Code(s): E11.42 - Type 2 diabetes mellitus with diabetic polyneuropathy; Z79.4 - salvage determiner (current) use of insulin; Z79.4 - salvage determiner (current) use of insulin; Z79.4 - shelter ( current) use of insulin; Z79.4 - shelter (current) use of insulin Code(s): E11.9 - TYPE 2 DIABETES MELLITUS WITHOUT COMPLICATIONS (5) Anemia Current Visit: Yes Status: Acute Qualifiers: Anemia type: other cause Assessment & Plan: continue to observe. Somewhat dilutional hyperimposed on some chronic anemia. Will continue to workup/monitor outpatient. Code(s): D64.9 - ANEMIA, UNSPECIFIED
[2017-06-13] MEDS: Mucinex 600MG ER Tabs PO SCH ×2 (08:47→22:59)
[2017-06-13] MEDS: Carafate 1 GM PO SCH ×4 (08:47→22:59)
[2017-06-13] MEDS: Neurontin 400 MG PO SCH ×3 (08:47→22:59)
[2017-06-13] MEDS: ZOLOFT 50 MG TABLET PO SCH (08:47)
[2017-06-13] MEDS: Cyclobenzaprine 10 MG PO SCH ×2 (08:48→23:00)
[2017-06-13] MEDS: FOLATE 1 MG PO SCH ×2 (08:48→23:00)
[2017-06-13] MEDS: ENOXAPARIN SODIUM SQ SCH (08:48)
[2017-06-13] MEDS: PLAVIX 75 MG Tablet PO SCH (08:48)
[2017-06-13] MEDS: Cardizem CD 180 MG PO SCH (08:48)
[2017-06-13] MEDS: lamICTAL 100MG TABLET PO SCH ×2 (08:48→23:01)
[2017-06-13] MEDS: SYNTHROID 100 MCG PO SCH (08:48)
[2017-06-13] MEDS: ARIPIPRAZOLE PO SCH (08:51)
[2017-06-13] MEDS: NON-FORMULARY ITEM (Propranolol Hcl [Propranolol Hcl Er] 0 MG) PO SCH (08:51)
[2017-06-13] MEDS: Protonix 40MG Tablet PO SCH (08:52)
[2017-06-13] MEDS: Lantus Insulin SQ SCH (08:56)
[2017-06-13] MEDS: NovoLOG Insulin SQ PRN ×2 (08:57→12:14)
[2017-06-13 11:59] LABS: Lymphocytes 5 % (24-44); Neutrophils 95 % (36.0-66.0); Total Cells Counted 100
[2017-06-13 12:00] LABS: Platelet Estimate NORMAL (NORMAL)
[2017-06-13] MEDS ORDERED: solu-MEDROL 125 MG IV SCH (22:00)
[2017-06-13] MEDS: MAG-OX 400 PO SCH (22:59)
[2017-06-13] MEDS: Ativan 1 MG PO PRN (23:00)
[2017-06-13] MEDS: Desyrel 150 MG PO SCH (23:01)
[2017-06-13] MEDS: ROCEPHIN 1 Gm-D5w 50 ml Bag** 1 G/50 ML IVPB IV SCH (23:01)
[2017-06-13] MEDS: ZOCOR 20MG PO SCH (23:01)
[2017-06-14] MEDS: Valium 5 MG PO PRN (00:59)
[2017-06-14] MEDS: OXYCODONE-ACETAMINOPHEN 10-325 PO PRN (01:00)
[2017-06-14] MEDS: Dextrose 5% -0.45 NaCl 1000 ML 1,000 ML IV SCH (04:27)
[2017-06-14] MEDS: DUONEB 0.5-3 MG/3 ml Neb IH SCH ×2 (07:00→11:09)
[2017-06-14] MEDS: Carafate 1 GM PO SCH ×2 (08:08→11:44)
[2017-06-14] MEDS: Neurontin 400 MG PO SCH (08:09)
[2017-06-14] MEDS: PLAVIX 75 MG Tablet PO SCH (08:09)
[2017-06-14] MEDS: lamICTAL 100MG TABLET PO SCH (08:10)
[2017-06-14] MEDS: Protonix 40MG Tablet PO SCH (08:10)
[2017-06-14] MEDS: FOLATE 1 MG PO SCH (08:12)
[2017-06-14] MEDS: Cardizem CD 180 MG PO SCH (08:12)
[2017-06-14] MEDS: Mucinex 600MG ER Tabs PO SCH (08:12)
[2017-06-14] MEDS: SYNTHROID 100 MCG PO SCH (08:12)
[2017-06-14] MEDS: ZOLOFT 50 MG TABLET PO SCH (08:13)
[2017-06-14] MEDS: Flonase NASAL NS SCH (08:13)
[2017-06-14] MEDS: Cyclobenzaprine 10 MG PO SCH (08:13)
[2017-06-14] MEDS: ARIPIPRAZOLE PO SCH (08:14)
[2017-06-14] MEDS: Lantus Insulin SQ SCH (08:15)
[2017-06-14] MEDS: ENOXAPARIN SODIUM SQ SCH (08:15)
[2017-06-14] MEDS: NON-FORMULARY ITEM (Propranolol Hcl [Propranolol Hcl Er] 0 MG) PO SCH (08:16)
--- NOTE | 2017-06-14 09:05 | PCM.DS ---
Discharge Summary Date of Admission: 06/07/17 08:22 Admitting Physician: ERICA BROCK Consults: Consults on Case 06/07/17 09:46 Consult Surgery ROUTINE Primary Care Provider: ERICA BROCK Allergies Allergies aspirin Allergy (Mild, Verified 06/01/17 21:56) codeine [Codeine] Allergy (Mild, Verified 06/01/17 21:56) fluoxetine HCl [From Prozac] Allergy (Mild, Verified 06/01/17 21:56) Penicillins Allergy (Mild, Verified 06/01/17 21:56) promethazine HCl [From Phenergan] Allergy (Mild, Verified 06/01/17 21:56) tremors doxycycline hyclate [From Vibra-Tabs] Adverse Reaction (Verified 06/01/17 21:56) steroid from breathing treatment Allergy (Mild, Uncoded 06/01/17 21:56) Hospital Summary - Hospital Course Hospital Course: Pt is 41 yo female pt of mine from [facility] with lung dysfunction (sees pulmonology and is on O2 at home) admitted for pneumonia after CXR and CT chest. She was treated with IV zithromax and rocephin; she recovered slowly but steadily. Improved quite a bit with IV steroids. Her port is unable to be accessed so she has an outpatient appointment to have it replaced. She has an over 1 mo history of swelling and pain in R hand (3rd digit, MCP joint) - xr has been negative so MRI ordered. Today she still c/o cough and fatigue, is SOB with walking but does get out and walk. On 4L NC which is her home dose of O2. - Vitals & Intake/Output Vital Signs: Vital Signs Temperature 98.4 F 06/14/17 07:15 Pulse Rate 66 06/14/17 07:15 Respiratory Rate 20 06/14/17 07:15 Blood Pressure 112/58 06/14/17 07:15 O2 Sat by Pulse Oximetry 96 06/14/17 07:15 Oxygen-Last Documented O2 Percentage 4 Liters = 36% Intake & Output: Intake & Output 06/11/17 06/12/17 06/13/17 06/14/17 11:59 11:59 11:59 11:59 Intake Total 2951 4196 2563 2919 Output Total 1650 7600 2950 2925 Balance 1301 -3404 -387 -6 Weight 91.354 kg 91.8 kg 91.9 kg 92 kg - Lab Result Diagrams: 06/13/17 05:08 06/13/17 05:08 Lab Results-Last 24 Hrs: Accuchecks Date 06/14/17 Date 06/14/17 Date 06/13/17 Date 06/13/17 Time 07:30 Time 22:00 Time 11:30 Accucheck Value: 139 Accucheck Value: 158 Accucheck Value: 149 Accucheck Value: 237 Lab Results-Last 24 Hours 06/13/17 Range/Units 05:08 Segmented Neutrophils 95 H (36.0-66.0) % Lymphocytes (Manual) 5 L (24-44) % Differential Comment NORMAL Platelet Estimate NORMAL (NORMAL) Micro Results-Entire Visit: Microbiology 06/08/17 08:15 Gram Stain - Final Sputum - Expectorant Sputum Culture - Final ORGANISMS ISOLATED ARE CONSISTENT WITH NORMAL RESP GOPAL MODERATE GROWTH, NO PREDOMINANT ORGANISM Accuchecks Date 06/14/17 Date 06/14/17 Date 06/13/17 Date 06/13/17 Time 07:30 Time 22:00 Time 11:30 Accucheck Value: 139 Accucheck Value: 158 Accucheck Value: 149 Accucheck Value: 237 - Radiology Exams Ordered Rad Exams-Entire Visit: Radiology Procedures Category Date Time Status MRI UPPER EXT JOINT W/O CONTRA [MRI] Routine Exams 06/14/17 08:56 Ordered - Procedures and Test Procedures and Tests throughout Hospitalization: Therapy Orders & Screens 06/13/17 11:00 Respiratory Nebulizer QID Comment: ABA OVIEDO Diagnosis: LAMAR PNEUMONIA CONFIRMED BY IMAGING, ELEVATED LACTIC ACID Discharge Exam General Appearance: no apparent distress, alert Neurologic Exam: oriented x 3, cooperative Skin Exam: normal color, warm, dry, No rash Respiratory Exam: lungs clear, diminished breath sounds (good air exchange), No crackles/rales, No rhonchi, No wheezing Cardiovascular Exam: regular rate/rhythm, normal heart sounds, No murmur Gastrointestinal/Abdomen Exam: soft, normal bowel sounds, No tenderness, No distention Extremity Exam: No pedal edema, No swelling Back Exam: normal inspection, No rash Final Diagnosis/Problem List - Final Discharge Diagnosis/Problem (1) Pneumonia Current Visit: Yes Status: Acute Assessment & Plan: Much improved. She doesn't tolerate po steroids due to "they burn my tongue" so will give IM kenalog today 40mg x1. (2) Port catheter in place Current Visit: No Status: Resolved Assessment & Plan: Scheduled for OP appt with surgery. (3) Depression Current Visit: No Status: Chronic (4) Diabetes type 2, controlled Current Visit: No Status: Chronic (5) Anemia Current Visit: Yes Status: Acute Assessment & Plan: will check CBC again today - Hgb has been between about 8.5-10.5 here. - Discharge Disposition: Home, Self-Care Condition: Good Prescriptions: New Cefdinir 300 mg PO BID #14 capsule Guaifenesin 600 mg ER [Mucinex 600MG ER Tabs] 600 mg PO BID PRN #30 tablet PRN Reason: Cough Continue Simvastatin [Zocor] 20 mg PO HS Levothyroxine Sodium 100 Mcg [Synthroid 100 Mcg] 100 mcg PO QAM Diltiazem HCl [Cartia Xt] 180 mg PO QPM Clopidogrel Bisulfate 75 mg [PLAVIX 75 MG Tablet] 75 mg PO DAILY Cyclobenzaprine HCl 10 mg [Cyclobenzaprine 10 MG] 10 mg PO BID Lamotrigine 100 mg [lamICTAL 100MG TABLET] 200 mg PO BID Bumetanide 1 mg [Bumex 1 mg] 1 mg PO DAILY #30 tablet Diazepam 5 mg [Valium 5 MG] 5 mg PO TIDPRN Trazodone HCl [Oleptro ER] 150 mg PO HS Omeprazole 20 MG [Prilosec 20 mg] 20 mg PO DAILY Triamcinolone Acetonide [Nasacort] 2 sprays IH DAILY Lidocaine HCl 5% Patch [Lidoderm Patch 5%] 1 applic TD DAILY PRN PRN PRN Reason: Pain Pyridoxine HCl 100 mg [Vitamin B-6 (Pyridoxine) 100 MG] 100 mg PO BID Folic Acid 1 mg PO BID Dulaglutide [Trulicity] 0.75 mg SQ WEEKLY Cyanocobalamin (Vitamin B-12) [Vitamin B12] 2,500 mcg PO DAILY Sucralfate 1 gm [Carafate 1 GM] 1 g PO ACHS #28 tablet Aripiprazole 2 mg PO DAILY Propranolol HCl [Propranolol HCl ER] 80 mg PO DAILY Insulin Detemir [Levemir] 7 units SQ DAILY Albuterol Sulfate [Ventolin Hfa] 8 gm IH Q4HPRN PRN PRN Reason: Shortness Of Breath/Wheezing Sertraline HCl 50 mg [Zoloft 50 mg Tablet] 50 mg PO DAILY Gabapentin 400 mg [Neurontin 400 MG] 1,200 mg PO TID #270 capsule Oxycodone HCl/Acetaminophen [Percocet 10-325 mg Tablet] 1 each PO Q4HPRN PRN PRN Reason: Pain Magnesium Oxide 400 mg [Mag-Ox 400] 400 mg PO HS Naproxen 500 mg [Naprosyn 500 MG] 500 mg PO BID 3 Days #6 tablet Additional Instructions: follow up with at [facility] on 06/18/17@ 0910. Follow up with: KAYLA RIOS [COURTESY STAFF] - 06/18/17 9:10 am (at [facility]) ERICA BROCK [Primary Care Provider] -
[2017-06-14] MEDS ORDERED: Kenalog-40 IM ONE (09:06)
[2017-06-14 09:43] LABS: Hematocrit 33.3 % (35-47); Mean Corpuscular Hemoglobin 27.6 pg (26-32); Mean Platelet Volume 10.4 fl (6-9.5); Platelet Count 257 K/mm3 (150-450); Red Blood Count 3.62 M/mm3 (4.1-5.4); Red Cell Distribution Width 13.8 % (11.5-14.0); White Blood Count 17.2 K/mm3 (4.0-10.5)
[2017-06-14] MEDS ORDERED: Miralax Powder 17GM PACKET PO SCH (10:00)
[2017-06-14] MEDS: Zofran 4 MG/2 ML VIAL IV PRN (10:12)
--- NOTE | 2017-06-14 10:14 | XRAY ---
Indication: Third MCP pain following injury one month ago. Sagittal, coronal, and axial MRI right hand performed without contrast using T1, T2, and STIR sequences. Comparison: None Visualized right hand articulation intact. No acute fracture, dislocation, suspicious bony lesions, or abnormal bone marrow signal. Visualized soft tissues including flexor/extensor mechanism unremarkable. Visualized carpal bones demonstrates tiny sub-5 mm scaphoid and triquetrum bone cysts. Impression: Scaphoid and triquetrum bone cysts. Remaining MRI right hand negative.
[2017-06-14 11:10] VITALS: O2SAT 95
[2017-06-14] MEDS: NovoLOG Insulin SQ PRN (11:46)
[2017-06-14 12:13] VITALS: BP 160/98; PULSE 76
== END 2017-06-14 13:05 | disposition home or self-care (01) | DRG 194 ==
LOC: ED 17:22 → MED SURG 20:50 → OBSVTOIN 06-07 08:22
PROVIDERS: ADMIT Family Medicine; ATTEND Family Medicine
DX: J18.9 Pneumonia, unspecified organism (principal); E87.0 Hyperosmolality and hypernatremia; F32.9 Major depressive disorder, single episode, unspecified; E10.8 Type 1 diabetes mellitus with unspecified complications; E11.42 Type 2 diabetes mellitus with diabetic polyneuropathy; Z79.4 Long term (current) use of insulin; D64.9 Anemia, unspecified; F41.8 Other specified anxiety disorders; Z79.899 Other long term (current) drug therapy; G40.909 Epilepsy, unspecified, not intractable, without status epilepticus; I10 Essential (primary) hypertension; K21.9 Gastro-esophageal reflux disease without esophagitis; F31.9 Bipolar disorder, unspecified; I48.91 Unspecified atrial fibrillation; Z99.81 Dependence on supplemental oxygen; J45.909 Unspecified asthma, uncomplicated; Z95.828 Presence of other vascular implants and grafts
CPT/HCPCS: 36000; 36415; 71046; 71250; 73221; 80048; 80053; 82962; 83036; 83605; 85025; 85027; 87040; 87070; 87631; 93268; 94640; 94760; 96360; 96365; 96367; 96374; 96375; 99285; G0378; J0456; J0696; J1650; J1885; J2270; J2405; J2930; J3301; J3480; A9270-GY

== ENCOUNTER 2017-06-25 10:12 | Emergency (ER) | payer OTHER ==
[2017-06-25] MEDS ORDERED: Lactated Ringers 1,000 ML IV ONE ×2 (10:18→10:37)
--- NOTE | 2017-06-25 10:24 | ERPHSYRPT ---
- History of Present Illness Time Seen by Provider: 06/25/17 10:17 Source: patient, EMS Physician History: CC: seizures Hx: 41 y/o patient of dr Alfaro. She has hx of seizures and takes lamictal. She had two seziures in early AM. Called doctor and was told to come to ER. She denies injury. Chronic sciatica and back pain. She has had some diarrhea for 4 days and some abdominal cramping pains. Prior hysterectomy. Allergies/Adverse Reactions: aspirin Allergy (Mild, Verified 06/01/17 21:56) codeine [Codeine] Allergy (Mild, Verified 06/01/17 21:56) fluoxetine HCl [From Prozac] Allergy (Mild, Verified 06/01/17 21:56) Penicillins Allergy (Mild, Verified 06/01/17 21:56) promethazine HCl [From Phenergan] Allergy (Mild, Verified 06/01/17 21:56) tremors doxycycline hyclate [From Vibra-Tabs] Adverse Reaction (Verified 06/01/17 21:56) steroid from breathing treatment Allergy (Mild, Uncoded 06/01/17 21:56) Home Medications: Diltiazem HCl [Cartia Xt] 180 mg PO QPM 09/27/14 [History] Levothyroxine Sodium 100 Mcg [Synthroid 100 Mcg] 100 mcg PO QAM 09/27/14 [ History] Simvastatin [Zocor] 20 mg PO HS 09/27/14 [History] Clopidogrel Bisulfate 75 mg [PLAVIX 75 MG Tablet] 75 mg PO DAILY 04/05/15 [History] Cyclobenzaprine HCl 10 mg [Cyclobenzaprine 10 MG] 10 mg PO BID 07/16/15 [ History] Lamotrigine 100 mg [lamICTAL 100MG TABLET] 200 mg PO BID 09/27/15 [History ] Diazepam 5 mg [Valium 5 MG] 5 mg PO TIDPRN 02/14/16 [History] Lidocaine HCl 5% Patch [Lidoderm Patch 5%] 1 applic TD DAILY PRN PRN 04/20 [History] Omeprazole 20 MG [Prilosec 20 mg] 20 mg PO DAILY 04/20/16 [History] Trazodone HCl [Oleptro ER] 150 mg PO HS 04/20/16 [History] Triamcinolone Acetonide [Nasacort] 2 sprays IH DAILY 04/20/16 [History] Cyanocobalamin (Vitamin B-12) [Vitamin B12] 2,500 mcg PO DAILY 10/09/16 [History ] Dulaglutide [Trulicity] 0.75 mg SQ WEEKLY 10/09/16 [History] Folic Acid 1 mg PO BID 10/09/16 [History] Pyridoxine HCl 100 mg [Vitamin B-6 (Pyridoxine) 100 MG] 100 mg PO BID 01/18 [History] Albuterol Sulfate [Ventolin Hfa] 8 gm IH Q4HPRN PRN 12/21/16 [History] Aripiprazole 2 mg PO DAILY 12/21/16 [History] Insulin Detemir [Levemir] 7 units SQ DAILY 12/21/16 [History] Propranolol HCl [Propranolol HCl ER] 80 mg PO DAILY 12/21/16 [History] Sertraline HCl 50 mg [Zoloft 50 mg Tablet] 50 mg PO DAILY 12/21/16 [History] Magnesium Oxide 400 mg [Mag-Ox 400] 400 mg PO HS 03/10/17 [History] Oxycodone HCl/Acetaminophen [Percocet 10-325 mg Tablet] 1 each PO Q4HPRN PRN 12/18 [History] Hx Tetanus, Diphtheria Vaccination/Date Given: Yes Hx Influenza Vaccination/Date Given: Yes Hx Pneumococcal Vaccination/Date Given: No - Review of Systems Constitutional: No Fever, No Chills Eyes: No Symptoms Ears, Nose, & Throat: No Symptoms Respiratory: No Cough, No Dyspnea Cardiac: No Chest Pain Abdominal/Gastrointestinal: Diarrhea, No Abdominal Pain, No Nausea, No Vomiting Genitourinary Symptoms: No Dysuria Musculoskeletal: Back Pain (chronic), No Injury Skin: No Rash Neurological: Seizure (X2 ), No Focal Weakness, No Headache, No Parasthesia All Other Systems: Reviewed and Negative - Past Medical History Pertinent Past Medical History: Yes Neurological History: Epilepsy, Seizures, Stroke ENT History: No Pertinent History Cardiac History: Hypertension, Other Respiratory History: Asthma, Pneumonia Endocrine Medical History: Diabetes Type I, Hypothyroidism Musculoskeletal History: Other GI Medical History: GERD, Hernia History: No Pertinent History Psycho-Social History: Anxiety, Bipolar, Depression, Panic Disorder Female Reproductive Disorders: Endometriosis Other Medical History: A FIB, MVP W/ REGURGITATION, HTN; HX R KNEE PN\\. home 02 - Past Surgical History Past Surgical History: Yes Neuro Surgical History: No Pertinent History Cardiac: Cardiac Catheterization Respiratory: No Pertinent History Gastrointestinal: Cholecystectomy, Hernia Repair Genitourinary: No Pertinent History Musculoskeletal: Joint Replacement, Orthopedic Surgery Female Surgical History: Hysterectomy Other Surgical History: torn miniscus and implant-RT KNEE" partial scope replacement" - Social History Smoking Status: Never smoker How long have you smoked: 25 Exposure to second hand smoke: No Alcohol Use: None Drug Use: none Patient Lives Alone: No Significant Family History: no pertinent family hx, heart disease, diabetes, hypertension - Nursing Vital Signs Nursing Vital Signs: Initial Vital Signs Temperature 99.1 F 06/25/17 10:18 Pulse Rate 85 06/25/17 10:18 Respiratory Rate 16 06/25/17 10:18 Blood Pressure 136/74 06/25/17 10:18 O2 Sat by Pulse Oximetry 98 06/25/17 10:18 Pain Scale Pain Intensity 10 - Physical Exam General Appearance: alert Eye Exam: PERRL/EOMI Ears, Nose, Throat Exam: moist mucous membranes Neck Exam: normal inspection, non-tender, supple, No midline tenderness Respiratory Exam: normal breath sounds, lungs clear Cardiovascular Exam: regular rate/rhythm Gastrointestinal/Abdomen Exam: soft, No tenderness, No distention Back Exam: normal inspection, other (no point tenderness) Extremity Exam: normal inspection, normal range of motion Neurologic Exam: alert, oriented x 3, cooperative, shank pinner II-XII nml as tested, nml station & gait, sensation nml, other (ambulated from cot to bed easily), No motor deficits Skin Exam: warm, dry, No rash - Course Nursing assessment & vital signs reviewed: Yes EKG Interpreted by Me: RATE (84), Sinus Rhythm, NORMAL AXIS, NORMAL INTERVALS ( [id number]), NORMAL QRS, NORMAL ST-T - Radiology Exams AAS X-ray Interpretation: Teleradiologist Report (nonacute nonobstructed abdomen; stable chest again demonstrating bibasilar infiltrtes/atelectasis; nonfunctioning left sided port a cath) Ordered Tests: Active Orders 24 hr Category Date Time Status Records Technician STAT Care 06/25/17 10:17 Active Clean Catch Urine Specimen STAT Care 06/25/17 10:17 Active EKG-ER Only STAT Care 06/25/17 10:17 Active IV Insertion STAT Care 06/25/17 10:17 Active Oxygen-ED Only NASAL CANNULA 2 lpm Care 06/25/17 10:17 Active Oxygen-ED Only NASAL CANNULA 4 lpm Care 06/25/17 10:19 Active Seizure Precautions -SCCHED STAT Care 06/25/17 10:17 Active OBSTR/ACUTE ABDOMEN SERIES Stat Exams 06/25/17 10:46 Completed CBC W DIFF Stat Lab 06/25/17 10:45 Completed CMP Stat Lab 06/25/17 10:45 Completed MAGNESIUM Stat Lab 06/25/17 10:45 Completed UA W/RFX UR CULTURE Stat Lab 06/25/17 11:15 Completed Medication Summary Discontinued Medications Generic Name Dose Route Start Last Admin Trade Name Freq PRN Reason Stop Dose Admin Lactated Ringer's 1,000 mls @ 999 mls/hr 06/25/17 10:18 06/25/17 10:47 Lactated Ringers IV 06/25/17 11:18 999 mls/hr .Q1H1M ONE Administration Lactated Ringer's Confirm 06/25/17 10:37 Lactated Ringers Administered 06/25/17 10:38 Dose 1,000 mls @ ud IV .STK-MED ONE Potassium Bicarbonate 50 meq 06/25/17 11:43 06/25/17 11:45 K-Lyte 25 Meq PO 06/25/17 11:44 50 meq STAT ONE Administration Potassium Bicarbonate Confirm 06/25/17 11:45 K-Lyte 25 Meq Administered 06/25/17 11:46 Dose 50 meq .ROUTE .STK-MED ONE Lab/Rad Data: Laboratory Result Diagrams 06/25/17 10:45 06/25/17 10:45 Laboratory Results 06/25/17 06/25/17 06/25/17 Range/Units 11:15 10:45 10:45 WBC (4.0-10.5) K/mm3 RBC (4.1-5.4) M/mm3 Hgb (12.0-16.0) gm/dl Hct (35-47) % MCV (78-100) fl MCH (26-32) pg MCHC (32-36) g/dl RDW (11.5-14.0) % Plt Count (150-450) K/mm3 MPV (6-9.5) fl Gran % (36.0-66.0) % Lymphocytes % (24.0-44.0) % Monocytes % (0.0-12.0) % Eosinophils % (0.00-5.0) % Basophils % (0.0-0.4) % Basophils # (0-0.4) Sodium 142 (136-145) mEq/L Potassium 2.9 L* (3.5-5.1) mEq/L Chloride 103 (98-107) mEq/L Carbon Dioxide 33.0 H (21-32) mEq/L Anion Gap 9.4 (5-15) MEQ/L BUN 6 L (9-20) mg/dL Creatinine 0.80 (0.55-1.30) mg/dl Estimated GFR > 60 ML/MIN Glucose 96 (70-110) MG/DL Calcium 9.0 (8.5-10.1) mg/dL Magnesium 2.1 (1.8-2.4) mg/dL Total Bilirubin 0.20 (0.2-1.0) mg/dL AST 17 (15-37) U/L ALT 26 (12-78) U/L Alkaline Phosphatase 98 (46-116) U/L Serum Total Protein 7.0 (6.4-8.2) gm/dL Albumin 3.7 (3.4-5.0) g/dL Ur Collection Type CLEAN CATCH Urine Color LT.YELLOW (YELLOW) Urine Appearance CLEAR (CLEAR) Urine pH 7.0 (5-6) Ur Specific [place] 1.005 (1.005-1.025) Urine Protein NEGATIVE (Negative) Urine Ketones NEGATIVE (NEGATIVE) Urine Blood NEGATIVE (0-5) Laurent/ul Urine Nitrite NEGATIVE (NEGATIVE) Urine Bilirubin NEGATIVE (NEGATIVE) Urine Urobilinogen NORMAL (0-1) mg/dL Ur Leukocyte Esterase NEGATIVE (NEGATIVE) Urine Culture Reflexed NO (NO) Urine Glucose NEGATIVE (NEGATIVE) mg/dL Specimen Received 06/25/2017 1125 06/25/17 Range/Units 10:45 WBC 5.9 (4.0-10.5) K/mm3 RBC 3.90 L (4.1-5.4) M/mm3 Hgb 10.8 L (12.0-16.0) gm/dl Hct 34.5 L (35-47) % MCV 88.5 (78-100) fl MCH 27.6 (26-32) pg MCHC 31.3 L (32-36) g/dl RDW 14.4 H (11.5-14.0) % Plt Count 205 (150-450) K/mm3 MPV 10.6 H (6-9.5) fl Gran % 53.4 (36.0-66.0) % Lymphocytes % 34.1 (24.0-44.0) % Monocytes % 8.1 (0.0-12.0) % Eosinophils % 4.2 (0.00-5.0) % Basophils % 0.2 (0.0-0.4) % Basophils # 0.01 (0-0.4) Sodium (136-145) mEq/L Potassium (3.5-5.1) mEq/L Chloride (98-107) mEq/L Carbon Dioxide (21-32) mEq/L Anion Gap (5-15) MEQ/L BUN (9-20) mg/dL Creatinine (0.55-1.30) mg/dl Estimated GFR ML/MIN Glucose (70-110) MG/DL Calcium (8.5-10.1) mg/dL Magnesium (1.8-2.4) mg/dL Total Bilirubin (0.2-1.0) mg/dL AST (15-37) U/L ALT (12-78) U/L Alkaline Phosphatase (46-116) U/L Serum Total Protein (6.4-8.2) gm/dL Albumin (3.4-5.0) g/dL Ur Collection Type Urine Color (YELLOW) Urine Appearance (CLEAR) Urine pH (5-6) Ur Specific [place] (1.005-1.025) Urine Protein (Negative) Urine Ketones (NEGATIVE) Urine Blood (0-5) Laurent/ul Urine Nitrite (NEGATIVE) Urine Bilirubin (NEGATIVE) Urine Urobilinogen (0-1) mg/dL Ur Leukocyte Esterase (NEGATIVE) Urine Culture Reflexed (NO) Urine Glucose (NEGATIVE) mg/dL Specimen Received - Progress Progress Note: 06/25/17 11:57 Vitals are good. She has been up to commode without problems. 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 PO K given. She is not on home K. Will supplement and follow up Dr Alfaro this week. Lamictal level pending. Counseled pt/family regarding: lab results, diagnosis, need for follow-up, rad results - Departure Time of Disposition: 11:58 Departure Disposition: Home Clinical Impression: Seizures, Hypokalemia Condition: Stable Critical Care Time: No Referrals: ERICA ALFARO [Primary Care Provider] - Instructions: Seizures, Adult (DC), Hypokalemia Additional Instructions: See Dr Alfaro June 29 at 10:30AM. No driving, climbing, swimming, hot tubs. Rx K to [facility]. Do not use port a cath. Prescriptions: Potassium Chloride [K-Dur] 10 meq PO BID #14 [email or web address]
[2017-06-25 10:55] LABS: BASOPHIL % 0.2 % (0.0-0.4); Basophil (Absolute #) 0.01 (0-0.4); Eosinophil % 4.2 % (0.00-5.0); Eosinophil (Absolute #) 0.25 (0-0.5); Granulocyte Absolute (ANC) 3.14 (1.4-6.9); Granulocytes % 53.4 % (36.0-66.0); Hematocrit 34.5 % (35-47); Hemoglobin 10.8 gm/dl (12.0-16.0); Lymphocyte (Absolute #) 2.01 (1.0-4.6); Lymphocytes % 34.1 % (24.0-44.0); Mean Cell Volume 88.5 fl (78-100); Mean Corpuscular Hgb Concent. 31.3 g/dl (32-36); Mean Platelet Volume 10.6 fl (6-9.5); Monocyte (Absolute #) 0.48 (0.0-1.3); Monocytes % 8.1 % (0.0-12.0); Platelet Count 205 K/mm3 (150-450); Red Cell Distribution Width 14.4 % (11.5-14.0); White Blood Count 5.9 K/mm3 (4.0-10.5)
[2017-06-25 10:56] LABS: Mean Corpuscular Hemoglobin 27.6 pg (26-32)
[2017-06-25 11:24] LABS: ALBUMIN 3.7 g/dL (3.4-5.0); ALKALINE PHOSPHATASE 98 U/L (46-116); ANION GAP 9.4 MEQ/L (5-15); BLOOD UREA NITROGEN 6 mg/dL (9-20); CHLORIDE 103 mEq/L (98-107); EST GLOMERULAR FILTRATION RATE > 60 ML/MIN; Glucose 96 MG/DL (70-110); SGOT/AST 17 U/L (15-37); SGPT/ALT 26 U/L (12-78); SODIUM 142 mEq/L (136-145)
[2017-06-25 11:25] LABS: Appearance CLEAR (CLEAR); Bilirubin NEGATIVE (NEGATIVE); Blood NEGATIVE Ery/ul (0-5); Glucose NEGATIVE (NEGATIVE); Ketones NEGATIVE (NEGATIVE); Leukocyte Esterase NEGATIVE (NEGATIVE); Nitrite NEGATIVE (NEGATIVE); Protein,Urine Dip NEGATIVE (Negative); Specific Gravity 1.005 (1.005-1.025); Urobilinogen NORMAL mg/dL (0-1)
--- NOTE | 2017-06-25 11:41 | XRAY ---
Indication: Left upper quadrant pain and diarrhea. Comparison: Chest exam June 06, 2017. 2 views of the abdomen demonstrates nonspecific nonobstructed bowel gas pattern with cholecystectomy clips. No free air. Solid organs and osseous structures unremarkable. Single PA chest demonstrates stable bibasilar infiltrates/atelectasis and nonfunctioning left sided Port-A-Cath. Heart is not enlarged. No new/acute findings. Impression: 1. Nonacute nonobstructed abdomen. 2. Stable chest again demonstrating bibasilar infiltrates/atelectasis.
[2017-06-25 11:43] LABS: Potassium 2.9 mEq/L (3.5-5.1)
[2017-06-25] MEDS ORDERED: K-LYTE 25 MEQ PO ONE (11:43)
[2017-06-25] MEDS ORDERED: K-LYTE 25 MEQ ONE (11:45)
[2017-06-25 11:59] VITALS: BP 125/78; PULSE 86; O2SAT 98
== END 2017-06-25 12:24 | disposition home or self-care (01) ==
LOC: ED 10:12
DX: R56.9 Unspecified convulsions (principal); E87.6 Hypokalemia; R19.7 Diarrhea, unspecified; R10.9 Unspecified abdominal pain; M54.30 Sciatica, unspecified side
CPT/HCPCS: 36000; 36415; 74022; 80053; 80175; 81002; 83735; 85025; 93005; 93041; 96360; 99283; 99284; A9270-GY

== ENCOUNTER 2017-08-06 08:42 | Day surgery (SDC) | payer OTHER ==
[~2017-08-06 08:42] MED LIST changes: -DIPRIVAN 200 MG/20 ML IV ONE; -Kenalog-40 IM ONE; +Lactated Ringers 1,000 ML IV ONE; -Sensorcaine 0.25% 10 ML IJ ONE; +Sensorcaine 0.25% 10 ML ONE; -Xylocaine 1% Vial 30 ML PF IJ ONE
[2017-08-06] MEDS ORDERED: SUBLIMAZE 100 MCG/2 ML IV ONE (08:43)
[2017-08-06] MEDS ORDERED: Versed 2 MG/2 ML Injection IV ONE (08:43)
[2017-08-06] MEDS ORDERED: DIPRIVAN 200 MG/20 ML IV ONE (08:43)
[2017-08-06] MEDS ORDERED: Levofloxacin 500MG/100ML D5W 500 MG/100 ML BAG IV STA (08:50)
[2017-08-06] MEDS ORDERED: Lactated Ringers 1,000 ML IV SCH (09:00)
--- NOTE | 2017-08-06 09:00 | HP ---
AMENDED REPORT: DATE OF SURGERY: 08/06/2017 HISTORY OF PRESENT ILLNESS: The patient is a 41 year-old female with poor peripheral access, multiple medical problems requiring IV treatments. She had a port placed last year. She had a problem with somebody accidentally taking the needle out and sound like it may have been infiltrated at one point. She had some aches and pains at the port site. There was concern about it and desires removal. She had some pain when she coughs. She desires removal of this old port and placing a new port. PAST MEDICAL/SURGICAL HISTORY: She had teeth extraction in the past, cholecystectomy, hysterectomy, D&C, heart cath. She had upper and lower endoscopy. She had hernia surgery in the past. Chronic lung disease with chronic obstructive pulmonary disease. She had transient ischemic attack in the past. She had some seizures in the past. History of hiatal hernia. She had some cancer on her face in the past. Bipolar and anxiety issues in the past. History of deep venous thrombosis in the past, pneumonia, hypertension. History of atrial fibrillation in the past. Blood clot was more than six months ago. MEDICATIONS: Estradiol, Trulicity, omeprazole, sucralfate, Sertraline, bumetanide, trazodone, simvastatin, cyclobenzaprine, lamotrigine, Ventolin, Cardia XT, hydrocodone, loratadine, clopidogrel, diazepam, levothyroxine, Naprosyn. ALLERGIES: ASPIRIN, CODEINE, PENICILLIN, PHENERGAN. FAMILY HISTORY: Noncontributory. SOCIAL HISTORY: No smoking or alcohol abuse. REVIEW OF SYSTEMS: Twelve systems reviewed per admission assessment. No chest pain or palpitations other systems negative or noncontributory as above and per preadmission questionnaire. PHYSICAL EXAMINATION: GENERAL: A chronically ill female. HEENT: Sclerae nonicteric. NECK: No JVD. CHEST: Equal excursion, nonlabored breathing. Port site looks fine. Scar is well healed. No signs of infection, easily palpable. CVS: Regular rate and rhythm. ABDOMEN: Soft. No peritoneal signs. EXTREMITIES: No significant edema. NEURO: Alert, moving extremities grossly symmetrically. IMPRESSION: Some aches, some pains at port site. The staff had problems accessing in the past, whether it is infiltrated or not given her aches and pains, the patient insists on removal of the port and placement of a new port possibly at a new site. Given her symptoms will proceed with removal of old port and placement of a new port. She was however explained the risks and benefits of the procedure in detail but not limited to bleeding, infection, risk of hematoma or seroma formation, risk of port infection possibly requiring removal, risk of port or catheter fracture or failure possibly requiring removal or replacement or other procedures, general risk of anesthesia, deep venous thrombosis, pulmonary embolism, pneumonia, possibility of pneumothorax as well as possibility she could have new aches, pains at a new port site that could be worse than her current aches and pains. She understands and still desires for port removal. She also understands possibility that this catheter is scarred in too much and may need to remove the port and tie off the catheter if it does not freely pull free. She understands all the above as well as general risk of anesthesia, deep venous thrombosis, pulmonary embolism, pneumonia, risk of cardiopulmonary event given her comorbidities. She understands and agrees to the planned procedure, will proceed with removal of old port and placement of new port as an outpatient.
[2017-08-06] MEDS ORDERED: Levofloxacin 500MG/100ML D5W 500 MG/100 ML BAG IV ONE (09:27)
[2017-08-06] MEDS ORDERED: Lactated Ringers 1,000 ML IV ONE (09:28)
[2017-08-06] MEDS ORDERED: XYLOCAINE 1% HCL 20 ML MDV ONE ×2 (11:54→11:56)
[2017-08-06] MEDS ORDERED: Sensorcaine 0.25% 10 ML ONE (13:03)
[2017-08-06 13:07] VITALS: O2SAT 100
[2017-08-06 13:27] VITALS: BP 132/89; PULSE 64
--- NOTE | 2017-08-06 14:07 | XRAY ---
Indication: Port placement. Intraoperative fluoroscopy was provided for 3 seconds. Single digital spot image demonstrates right-sided Port-A-Cath hub with multiple overlying wires/catheters. Correlate with intraoperative findings/report.
--- NOTE | 2017-08-06 14:36 | XRAY ---
3 seconds fluoroscopy time in surgery for port placement.
--- NOTE | 2017-08-07 09:34 | OP ---
SURGERY DATE/TIME: 08/06/2017 1152 PREOPERATIVE DIAGNOSIS: History of difficult to access painful left chest tunnel Port-A-Cath in need of removal and placement of new port for assisted IV access for IV treatments, poor peripheral access. POSTOPERATIVE DIAGNOSES: History of difficult to access painful left chest tunnel Port-A-Cath in need of removal and placement of new port for assisted IV access for IV treatments, poor peripheral access. PROCEDURES: 1) Removal of old tunnel Port-A-Cath left chest. 2) Placement of new tunnel Port-A-Cath right subclavian vein tunnel Port-A-Cath with C-arm fluoroscopy. SURGEON: Dr. Bethel Devries. ANESTHESIA: General. ESTIMATED BLOOD LOSS: Minimal. INDICATIONS: As noted above. Risks and benefits explained in detail and not limited to and consent obtained. DESCRIPTION OF PROCEDURE AND FINDINGS: The patient is taken to the operating room. General anesthesia introduced. Neck and chest prepped and draped in usual sterile fashion. After official time out and no disagreement with planned procedure, in Trendelenburg position 1% lidocaine local infiltrated right subclavicular area. An 18 gauge cannulation needle inserted on first pass. Good dark nonpulsatile venous return. Guide wire passed without difficulty confirmed down superior vena cava by C-arm fluoroscopy. It was followed by anesthetizing port pocket and tunnel track. A transverse incision made through subcu. Port pocket created with aid of cautery. Port secured to chest wall with Prolene suture x2. Catheter tunneled down from cannulation stab wound down to port pocket area. Dilator break away sheath easily fed over the guide wire. The catheter is fed down the breakaway sheath. The tip is pulled back confirmed in distal superior vena cava area, appeared to be right atrial area on C-arm fluoroscopy. It was cut to appropriate length, snapped on the port with the hub. Port aspirated dark nonpulsatile venous return with ease, flushed with heparinized saline with ease. C-arm fluoroscopy confirmed the lung tovar noted to be up bilaterally. Catheter tip in good location. Port was flushed and aspirated with ease. It was felt that no benefit of any other x-rays at this point. She tolerated the procedure well. Otherwise small segment of extra subcutaneous fat was excised to make it easier to access overlying the area. Otherwise good hemostasis noted. One small m48 m60 armor crewman had been secured with 3-0 Vicryl suture ligature. Good hemostasis noted. Subcu closed with 3-0 Vicryl. Skin closed with 4-0 Vicryl. Cannulation stab wound closed with 4-0 Vicryl. Steri-Strips and sterile dressing applied. Again tip in good location. Lung tovar noted to be up bilaterally. At this point attention is then turned to removal of the old site. 1% lidocaine local was infiltrated in field pattern around the area excising the old scar. There was one small indurated area. Dissection carried down to subcutaneous tissue down to the port pocket area. There was some fluid in there from infiltration recently. The patient also somehow pulled the catheter back but it was in good position on initial placement. The sutures were freed. Port and catheter removed intact and passed off. Irrigation accomplished. Tunnel track and pocket closed with 3-0 Vicryl, subcu closed with 3-0 Vicryl. Skin closed with 4-0 Vicryl. Steri-Strips and sterile dressing applied. The patient tolerated the procedure well. There were no immediate complications. Findings discussed with the family out in the waiting area.
== END 2017-08-06 13:52 | disposition home or self-care (01) ==
LOC: SDC 08:42
PROVIDERS: ATTEND Surgery
PROC: 05PY03Z Removal of Infusion Device from Upper Vein, Open Approach (ICD-10-PCS; principal; 2017-08-06)
PROC: 0JHD3WZ Insertion of Totally Implantable Vascular Access Device into Right Upper Arm Subcutaneous Tissue and Fascia, Percutaneous Approach (ICD-10-PCS; 2017-08-06)
DX: Z45.2 Encounter for adjustment and management of vascular access device (principal); J44.9 Chronic obstructive pulmonary disease, unspecified; Z86.73 Personal history of transient ischemic attack (TIA), and cerebral infarction without residual deficits; K44.9 Diaphragmatic hernia without obstruction or gangrene; F31.9 Bipolar disorder, unspecified; F41.9 Anxiety disorder, unspecified; Z86.718 Personal history of other venous thrombosis and embolism; I10 Essential (primary) hypertension; I97.89 Other postprocedural complications and disorders of the circulatory system, not elsewhere classified; I48.91 Unspecified atrial fibrillation; Z79.899 Other long term (current) drug therapy
CPT/HCPCS: 00532; 71045; 77001; C1788; J1642; J1956; J2250; J2704; J3010

== ENCOUNTER 2017-09-09 19:20 | Observation (INO) | payer OTHER ==
--- NOTE | 2017-09-09 20:00 | ERPHSYRPT ---
- History of Present Illness Time Seen by Provider: 09/09/17 19:46 Source: patient Exam Limitations: no limitations Patient Subjective Stated Complaint: pt states she has been having numbness in her face and tingling in her lt hand since approx 10 am and increasing through the day Triage Nursing Assessment: pt alert and oriented, asnwers questions approp. pt ambulatory with steady gait noted. respirations nonlabored. o2 at 4l per nc as at home.pupils equal and reactive. bilat upper and lower ext strength equal. Physician History: 41 y/o female with history of DM and CVA comes to the ER with complaints of left facial and left upper extremity numbness and weakness since 10:00am this morning. Pt states the numbness has gotten worse. Pt also admits to blurry vision and states that she has a difficult time getting the words out. Pt also admits to slight chest tightness in the center of her chest but has no current chest pain. Pt also states that she walked into the wall. Pt denies any dizziness, headache, shortness of breath or palpitations. Pt is compliant on plavix. Timing/Duration: today Severity: mild Character of Deficits: new weakness, altered sensation, impaired speech Deficits: off balance Baseline/Normal Cognition: alert oriented x 3 Current Cognition: alert oriented x 3 Baseline Gait: walks w/o assistance Associated Symptoms: numbness/tingling in legs/feet, vision changes Allergies/Adverse Reactions: aspirin Allergy (Mild, Verified 09/10/17 00:01) Nausea and Vomiting codeine [Codeine] Allergy (Mild, Verified 09/10/17 00:01) Itching fluoxetine HCl [From Prozac] Allergy (Mild, Verified 09/10/17 00:01) confusion , "jumped out of a moving truck" Penicillins Allergy (Mild, Verified 09/10/17 00:01) Nausea and Vomiting promethazine HCl [From Phenergan] Allergy (Mild, Verified 09/10/17 00:01) tremors doxycycline hyclate [From Vibra-Tabs] Adverse Reaction (Verified 09/10/17 00:01) steroid from breathing treatment Allergy (Mild, Uncoded 09/10/17 00:01) Blisters Home Medications: Diltiazem HCl [Cartia Xt] 180 mg PO QPM 09/27/14 [History] Levothyroxine Sodium 100 Mcg [Synthroid 100 Mcg] 100 mcg PO QAM 09/27/14 [ History] Simvastatin [Zocor] 20 mg PO HS 09/27/14 [History] Clopidogrel Bisulfate 75 mg [PLAVIX 75 MG Tablet] 75 mg PO DAILY 04/05/15 [History] Cyclobenzaprine HCl 10 mg [Cyclobenzaprine 10 MG] 10 mg PO BID 07/16/15 [ History] Lamotrigine 100 mg [lamICTAL 100MG TABLET] 200 mg PO BID 09/27/15 [History ] Diazepam 5 mg [Valium 5 MG] 5 mg PO TIDPRN 02/14/16 [History] Omeprazole 20 MG [Prilosec 20 mg] 20 mg PO DAILY 04/20/16 [History] Trazodone HCl [Oleptro ER] 150 mg PO HS 04/20/16 [History] Dulaglutide [Trulicity] 0.75 mg SQ WEEKLY 10/09/16 [History] Albuterol Sulfate [Ventolin Hfa] 8 gm IH Q4HPRN PRN 12/21/16 [History] Sertraline HCl 50 mg [Zoloft 50 mg Tablet] 50 mg PO DAILY 12/21/16 [History] Estradiol 0.5 mg PO DAILY 07/30/17 [History] Hydrocodone/APAP 10/325 mg [[place] 10/325 MG Tablet] 1 tab PO Q4HPRN PRN [History] Loratadine 10 mg [Claritin 10 mg] 10 mg PO DAILY 07/30/17 [History] Potassium Chloride [K-Dur] 20 meq PO DAILY 08/03/17 [History] Hx Tetanus, Diphtheria Vaccination/Date Given: Yes Hx Influenza Vaccination/Date Given: Yes Hx Pneumococcal Vaccination/Date Given: No - Review of Systems Constitutional: No Fever, No Chills Eyes: No Symptoms Ears, Nose, & Throat: No Symptoms Respiratory: No Cough, No Dyspnea Cardiac: No Chest Pain, No Edema, No Syncope Abdominal/Gastrointestinal: No Abdominal Pain, No Nausea, No Vomiting, No Diarrhea Genitourinary Symptoms: No Dysuria Musculoskeletal: No Back Pain, No Neck Pain Skin: No Rash Neurological: Focal Weakness, Sensory Changes, Speech Changes, No Dizziness Psychological: No Symptoms Endocrine: No Symptoms All Other Systems: Reviewed and Negative - Past Medical History Pertinent Past Medical History: Yes Neurological History: Epilepsy, Seizures, Stroke ENT History: No Pertinent History Cardiac History: Arrhythmia, Congestive Heart Failure, Deep Vein Thrombosis, Hypertension Respiratory History: Pulmonary Embolism, Other Endocrine Medical History: Diabetes Type I, Hypothyroidism Musculoskeletal History: Other GI Medical History: GERD, Hernia History: No Pertinent History Psycho-Social History: Anxiety, Bipolar, Depression, Panic Disorder Female Reproductive Disorders: Endometriosis Other Medical History: pt wears o2 but states shes unsure why. - Past Surgical History Past Surgical History: Yes Neuro Surgical History: No Pertinent History Cardiac: Cardiac Catheterization Respiratory: No Pertinent History Gastrointestinal: Cholecystectomy, Hernia Repair Genitourinary: No Pertinent History Musculoskeletal: Joint Replacement, Orthopedic Surgery Female Surgical History: Hysterectomy, Dilation & Curettage Other Surgical History: torn miniscus and implant-RT KNEE" partial scope replacement" - Social History Smoking Status: Former smoker How long have you smoked: 25 Exposure to second hand smoke: No Alcohol Use: None Drug Use: none Patient Lives Alone: No Significant Family History: no pertinent family hx, heart disease, diabetes, hypertension - Female History Hx Last Menstrual Period: hyster Hx Now: No - Nursing Vital Signs Nursing Vital Signs: Initial Vital Signs Temperature 98.3 F 09/09/17 19:33 Pulse Rate 90 09/09/17 19:33 Respiratory Rate 18 09/09/17 19:33 Blood Pressure 136/73 09/09/17 19:33 O2 Sat by Pulse Oximetry 100 09/09/17 19:33 Pain Scale Pain Intensity 8 - Denise Coma Scale Best Eye Response ([place]): (4) open spontaneously Best Verbal Response (Denise): (5) oriented Best Motor Response (Denise): (6) obeys commands Denise Total: 15 - Physical Exam General Appearance: no apparent distress, alert Eye Exam: bilateral eye: PERRL, EOMI Ears, Nose, Throat Exam: normal ENT inspection, moist mucous membranes Neck Exam: normal inspection, non-tender, supple Respiratory: normal breath sounds, lungs clear, airway intact, No respiratory distress Cardiovascular: regular rate/rhythm, normal heart sounds, normal peripheral pulses, No edema Gastrointestinal: soft, normal bowel sounds, No tenderness, No distention Back Exam: normal inspection, normal range of motion Extremity Exam: normal inspection, normal range of motion, No pedal edema Mental Status: alert, 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 x 3, 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 Exam: normal hearing, normal speech, PERRL, facial paresthesias, tongue midline, No facial droop Coordination/Gait: normal finger to nose, normal gait Motor/Sensory: pronator drift (L), weak motor strength LUE, weak motor strength LLE Skin Exam: normal color, warm, dry, No rash SpO2 Interpretation: normal SpO2: 100 Oxygen Delivery: Nasal Cannula - Course Nursing assessment & vital signs reviewed: Yes EKG Interpreted by Me: RATE, NORMAL AXIS, NORMAL INTERVALS, NORMAL QRS, NORMAL ST-T Ordered Tests: Active Orders 24 hr Category Date 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 09/09/17 19:46 Active EKG-ER Only STAT Care 09/09/17 19:45 Active IV Insertion STAT Care 09/09/17 21:46 Active CHEST 1 VIEW (PORTABLE) Stat Exams 09/09/17 19:[address] ANGIOGRAPHY NECK [CT] Stat Exams 09/09/17 21:39 Taken CTA HEAD W AND/OR WO CONTRAST [CT] Stat Exams 09/09/17 21:42 Taken HEAD WITHOUT CONTRAST [CT] Stat Exams 09/09/17 19:46 Taken CBC W DIFF Stat Lab 09/09/17 20:41 Completed CMP Stat Lab 09/09/17 20:41 Completed CULTURE,URINE Stat Lab 09/09/17 20:41 Received PROTIME WITH INR Stat Lab 09/09/17 20:41 Completed PTT Stat Lab 09/09/17 20:41 Completed TROPONIN Q3H Lab 09/09/17 20:41 Completed TROPONIN Q3H Lab 09/09/17 23:10 Completed TROPONIN Q3H Lab 09/10/17 01:45 Ordered TROPONIN Q3H Lab 09/10/17 04:45 Ordered TROPONIN Q3H Lab 09/10/17 07:45 Ordered UA W/ MICROSCOPIC Stat Lab 09/09/17 20:41 Completed Urine Triage Profile Stat Lab 09/09/17 20:41 Completed Medication Summary Discontinued Medications Generic Name Dose Route Start Last Admin Trade Name Freq PRN Reason Stop Dose Admin Potassium Chloride 40 meq 09/09/17 21:24 09/09/17 21:31 Klor Con 10 Meq PO 09/09/17 21:25 40 meq STAT ONE Administration Potassium Chloride Confirm 09/09/17 21:30 Klor Con 10 Meq Administered 09/09/17 21:31 Dose 40 meq PO .STK-MED ONE Lab/Rad Data: Laboratory Result Diagrams 09/09/17 20:41 09/09/17 20:41 Laboratory Results 09/09/17 09/09/17 09/09/17 Range/Units 23:10 20:41 20:41 WBC (4.0-10.5) K/mm3 RBC (4.1-5.4) M/mm3 Hgb (12.0-16.0) gm/dl Hct (35-47) % MCV (78-100) fl MCH (26-32) pg MCHC (32-36) g/dl RDW (11.5-14.0) % Plt Count (150-450) K/mm3 MPV (6-9.5) fl Gran % (36.0-66.0) % Eos # (Auto) (0-0.5) Absolute Lymphs (auto) (1.0-4.6) Absolute Monos (auto) (0.0-1.3) Lymphocytes % (24.0-44.0) % Monocytes % (0.0-12.0) % Eosinophils % (0.00-5.0) % Basophils % (0.0-0.4) % Absolute Granulocytes (1.4-6.9) Basophils # (0-0.4) PT 11.3 (9.95-12.35) SECONDS INR 1.02 (0.8-3.0) APTT 31.9 (25.3-37.0) SECONDS Sodium 145 (137-145) mmol/L Potassium 3.3 L (3.5-5.1) mmol/L Chloride 100 (98-107) mmol/L Carbon Dioxide 34 H (22-30) mmol/L Anion Gap 14.4 (5-15) MEQ/L BUN 5 L (7-17) mg/dL Creatinine 0.72 (0.52-1.04) mg/dL Estimated GFR > 60.0 ML/MIN Glucose 85 (74-106) mg/dL Calcium 10.2 (8.4-10.2) mg/dL Total Bilirubin 0.20 (0.2-1.3) mg/dL AST 20 (14-36) U/L ALT 17 (0-35) U/L Alkaline Phosphatase 120 (38-126) U/L Troponin I < 0.012 (0.000-0.034) ng/mL Serum Total Protein 8.4 H (6.3-8.2) g/dL Albumin 4.9 (3.5-5.0) g/dL Ur Collection Type Urine Color (YELLOW) Urine Appearance (CLEAR) Urine pH (5-6) Ur Specific [place] (1.005-1.025) Urine Protein (Negative) Urine Ketones (NEGATIVE) Urine Blood (0-5) Laurent/ul Urine Nitrite (NEGATIVE) Urine Bilirubin (NEGATIVE) Urine Urobilinogen (0-1) mg/dL Ur Leukocyte Esterase (NEGATIVE) Urine Microscopic RBC (0-2) /HPF Urine Microscopic WBC (0-5) /HPF Ur Epithelial Cells (FEW) /HPF Urine Bacteria (NEGATIVE) /HPF Urine Culture Reflexed (NO) Urine Glucose (NEGATIVE) mg/dL Urine Opiates Level (NEGATIVE) Ur Methadone (NEGATIVE) Urine Barbiturates (NEGATIVE) Ur Phencyclidine (PCP) (NEGATIVE) Urine Amphetamine (NEGATIVE) U Benzodiazepine Level (NEGATIVE) Urine Cocaine (NEGATIVE) Urine Marijuana (THC) (NEGATIVE) Specimen Received 09/09/17 09/09/17 09/09/17 Range/Units 20:41 20:41 20:41 WBC 8.2 (4.0-10.5) K/mm3 RBC 4.75 (4.1-5.4) M/mm3 Hgb 13.3 (12.0-16.0) gm/dl Hct 41.9 (35-47) % MCV 88.2 (78-100) fl MCH 28.0 (26-32) pg MCHC 31.7 L (32-36) g/dl RDW 14.8 H (11.5-14.0) % Plt Count 213 (150-450) K/mm3 MPV 10.4 H (6-9.5) fl Gran % 59.4 (36.0-66.0) % Eos # (Auto) 0.71 H (0-0.5) Absolute Lymphs (auto) 2.07 (1.0-4.6) Absolute Monos (auto) 0.54 (0.0-1.3) Lymphocytes % 25.2 (24.0-44.0) % Monocytes % 6.6 (0.0-12.0) % Eosinophils % 8.6 H (0.00-5.0) % Basophils % 0.2 (0.0-0.4) % Absolute Granulocytes 4.88 (1.4-6.9) Basophils # 0.02 (0-0.4) PT (9.95-12.35) SECONDS INR (0.8-3.0) APTT (25.3-37.0) SECONDS Sodium (137-145) mmol/L Potassium (3.5-5.1) mmol/L Chloride (98-107) mmol/L Carbon Dioxide (22-30) mmol/L Anion Gap (5-15) MEQ/L BUN (7-17) mg/dL Creatinine (0.52-1.04) mg/dL Estimated GFR ML/MIN Glucose (74-106) mg/dL Calcium (8.4-10.2) mg/dL Total Bilirubin (0.2-1.3) mg/dL AST (14-36) U/L ALT (0-35) U/L Alkaline Phosphatase (38-126) U/L Troponin I (0.000-0.034) ng/mL Serum Total Protein (6.3-8.2) g/dL Albumin (3.5-5.0) g/dL Ur Collection Type VOID Urine Color LT.YELLOW (YELLOW) Urine Appearance HAZY (CLEAR) Urine pH 6.0 (5-6) Ur Specific [place] 1.005 (1.005-1.025) Urine Protein NEGATIVE (Negative) Urine Ketones NEGATIVE (NEGATIVE) Urine Blood 50 (0-5) Laurent/ul Urine Nitrite NEGATIVE (NEGATIVE) Urine Bilirubin NEGATIVE (NEGATIVE) Urine Urobilinogen NORMAL (0-1) mg/dL Ur Leukocyte Esterase 2+ (NEGATIVE) Urine Microscopic RBC 5-10 (0-2) /HPF Urine Microscopic WBC 25-50 (0-5) /HPF Ur Epithelial Cells MANY (FEW) /HPF Urine Bacteria FEW (NEGATIVE) /HPF Urine Culture Reflexed YES (NO) Urine Glucose NEGATIVE (NEGATIVE) mg/dL Urine Opiates Level NEGATIVE (NEGATIVE) Ur Methadone NEGATIVE (NEGATIVE) Urine Barbiturates NEGATIVE (NEGATIVE) Ur Phencyclidine (PCP) NEGATIVE (NEGATIVE) Urine Amphetamine NEGATIVE (NEGATIVE) U Benzodiazepine Level NEGATIVE (NEGATIVE) Urine Cocaine NEGATIVE (NEGATIVE) Urine Marijuana (THC) NEGATIVE (NEGATIVE) Specimen Received 09/09/17204409/09/17 Range/Units 20:41 WBC (4.0-10.5) K/mm3 RBC (4.1-5.4) M/mm3 Hgb (12.0-16.0) gm/dl Hct (35-47) % MCV (78-100) fl MCH (26-32) pg MCHC (32-36) g/dl RDW (11.5-14.0) % Plt Count (150-450) K/mm3 MPV (6-9.5) fl Gran % (36.0-66.0) % Eos # (Auto) (0-0.5) Absolute Lymphs (auto) (1.0-4.6) Absolute Monos (auto) (0.0-1.3) Lymphocytes % (24.0-44.0) % Monocytes % (0.0-12.0) % Eosinophils % (0.00-5.0) % Basophils % (0.0-0.4) % Absolute Granulocytes (1.4-6.9) Basophils # (0-0.4) PT (9.95-12.35) SECONDS INR (0.8-3.0) APTT (25.3-37.0) SECONDS Sodium (137-145) mmol/L Potassium (3.5-5.1) mmol/L Chloride (98-107) mmol/L Carbon Dioxide (22-30) mmol/L Anion Gap (5-15) MEQ/L BUN (7-17) mg/dL Creatinine (0.52-1.04) mg/dL Estimated GFR ML/MIN Glucose (74-106) mg/dL Calcium (8.4-10.2) mg/dL Total Bilirubin (0.2-1.3) mg/dL AST (14-36) U/L ALT (0-35) U/L Alkaline Phosphatase (38-126) U/L Troponin I < 0.012 (0.000-0.034) ng/mL Serum Total Protein (6.3-8.2) g/dL Albumin (3.5-5.0) g/dL Ur Collection Type Urine Color (YELLOW) Urine Appearance (CLEAR) Urine pH (5-6) Ur Specific [place] (1.005-1.025) Urine Protein (Negative) Urine Ketones (NEGATIVE) Urine Blood (0-5) Laurent/ul Urine Nitrite (NEGATIVE) Urine Bilirubin (NEGATIVE) Urine Urobilinogen (0-1) mg/dL Ur Leukocyte Esterase (NEGATIVE) Urine Microscopic RBC (0-2) /HPF Urine Microscopic WBC (0-5) /HPF Ur Epithelial Cells (FEW) /HPF Urine Bacteria (NEGATIVE) /HPF Urine Culture Reflexed (NO) Urine Glucose (NEGATIVE) mg/dL Urine Opiates Level (NEGATIVE) Ur Methadone (NEGATIVE) Urine Barbiturates (NEGATIVE) Ur Phencyclidine (PCP) (NEGATIVE) Urine Amphetamine (NEGATIVE) U Benzodiazepine Level (NEGATIVE) Urine Cocaine (NEGATIVE) Urine Marijuana (THC) (NEGATIVE) Specimen Received - Progress Progress: unchanged Progress Note: 09/09/17 23:[address] scan head w/o contrast does not show any acute bleed. The CTA head and neck do not show any acute abnormality. The patient is still having left sided numbness but is outside the window for thrombolytics. Pt will be given a dose of plavix. The rest of the labs are within normal limits, except for low K which was replaced. The patient will require further workup and will need inpatient admission. 09/10/17 00:01 Pt has been admitted to Dr Vale for numbness and TIA - Departure Time of Disposition: 00:02 Departure Disposition: In-patient Admission Clinical Impression: TIA (transient ischemic attack) Qualifiers: Transient cerebral ischemia type: unspecified Qualified Code(s): G45.9 - Transient cerebral ischemic attack, unspecified Condition: Stable Critical Care Time: Yes Critical Care Time(excluding separately billable procedures): 30-74 minutes Referrals: ERICA BROCK [Primary Care Provider] -
[2017-09-09 20:43] LABS: BASOPHIL % 0.2 % (0.0-0.4); Basophil (Absolute #) 0.02 (0-0.4); Eosinophil % 8.6 % (0.00-5.0); Eosinophil (Absolute #) 0.71 (0-0.5); Granulocyte Absolute (ANC) 4.88 (1.4-6.9); Granulocytes % 59.4 % (36.0-66.0); Hematocrit 41.9 % (35-47); Hemoglobin 13.3 gm/dl (12.0-16.0); Lymphocyte (Absolute #) 2.07 (1.0-4.6); Lymphocytes % 25.2 % (24.0-44.0); Mean Cell Volume 88.2 fl (78-100); Mean Corpuscular Hgb Concent. 31.7 g/dl (32-36); Mean Platelet Volume 10.4 fl (6-9.5); Monocyte (Absolute #) 0.54 (0.0-1.3); Monocytes % 6.6 % (0.0-12.0); Platelet Count 213 K/mm3 (150-450); Red Blood Count 4.75 M/mm3 (4.1-5.4); Red Cell Distribution Width 14.8 % (11.5-14.0); White Blood Count 8.2 K/mm3 (4.0-10.5)
[2017-09-09 21:00] LABS: Appearance HAZY (CLEAR); Bilirubin NEGATIVE (NEGATIVE); Blood 50 Ery/ul (0-5); Glucose NEGATIVE (NEGATIVE); Ketones NEGATIVE (NEGATIVE); Leukocyte Esterase 2+ (NEGATIVE); Nitrite NEGATIVE (NEGATIVE); Protein,Urine Dip NEGATIVE (Negative); Specific Gravity 1.005 (1.005-1.025); Urobilinogen NORMAL mg/dL (0-1)
[2017-09-09 21:01] LABS: Bacteria FEW /HPF (NEGATIVE); Epithelial Cells MANY /HPF (FEW); WBC 25-50 /HPF (0-5)
[2017-09-09 21:02] LABS: ALBUMIN 4.9 g/dL (3.5-5.0); ALKALINE PHOSPHATASE 120 U/L (38-126); ANION GAP 14.4 MEQ/L (5-15); BLOOD UREA NITROGEN 5 mg/dL (7-17); CHLORIDE 100 mmol/L (98-107); Calcium 10.2 mg/dL (8.4-10.2); Carbon Dioxide 34 mmol/L (22-30); Creatinine 1 0.72 mg/dL (0.52-1.04); Glucose 85 mg/dL (74-106); Potassium 3.3 mmol/L (3.5-5.1); SGOT/AST 20 U/L (14-36); SGPT/ALT 17 U/L (0-35); SODIUM 145 mmol/L (137-145); Total Protein 8.4 g/dL (6.3-8.2)
[2017-09-09 21:05] LABS: Amphetamine,Urine NEGATIVE (NEGATIVE); Barbiturate,Urine NEGATIVE (NEGATIVE); Benzodiazepine,Urine NEGATIVE (NEGATIVE); Cocaine,Urine NEGATIVE (NEGATIVE); INR 1.02 (0.8-3.0); Methadone,Urine NEGATIVE (NEGATIVE); Opiate,Urine NEGATIVE (NEGATIVE); PCP,Urine NEGATIVE (NEGATIVE); THC,Urine NEGATIVE (NEGATIVE)
[2017-09-09 21:08] LABS: PTT 31.9 SECONDS (25.3-37.0)
[2017-09-09] MEDS ORDERED: Klor Con 10 MEQ PO ONE ×2 (21:24→21:30)
[2017-09-10] MEDS ORDERED: PLAVIX 75 MG Tablet PO ONE
[2017-09-10] MEDS ORDERED: Sodium Chloride 0.9% 1000 ML 1,000 ML IV SCH (00:15)
[2017-09-10] MEDS ORDERED: PLAVIX 75 MG Tablet ONE (00:21)
[2017-09-10] MEDS ORDERED: OXYCODONE-ACETAMINOPHEN 10-325 PO PRN ×2 (03:18→09:28)
[2017-09-10] MEDS ORDERED: PROVENTIL COMMON CANISTER IH PRN ×2 (04:45→09:51)
[2017-09-10 05:26] LABS: BASOPHIL % 0.2 % (0.0-0.4); Basophil (Absolute #) 0.01 (0-0.4); Eosinophil % 10.5 % (0.00-5.0); Eosinophil (Absolute #) 0.67 (0-0.5); Granulocyte Absolute (ANC) 2.93 (1.4-6.9); Hematocrit 37.7 % (35-47); Hemoglobin 11.9 gm/dl (12.0-16.0); Lymphocyte (Absolute #) 2.23 (1.0-4.6); Mean Cell Volume 88.3 fl (78-100); Mean Corpuscular Hgb Concent. 31.6 g/dl (32-36); Mean Platelet Volume 10.4 fl (6-9.5); Monocyte (Absolute #) 0.53 (0.0-1.3); Monocytes % 8.3 % (0.0-12.0); Platelet Count 191 K/mm3 (150-450); Red Blood Count 4.27 M/mm3 (4.1-5.4); Red Cell Distribution Width 14.6 % (11.5-14.0); White Blood Count 6.4 K/mm3 (4.0-10.5)
[2017-09-10 05:43] LABS: ANION GAP 12.1 MEQ/L (5-15); BLOOD UREA NITROGEN 5 mg/dL (7-17); CHLORIDE 102 mmol/L (98-107); Calcium 9.4 mg/dL (8.4-10.2); Carbon Dioxide 29 mmol/L (22-30); Creatinine 1 0.62 mg/dL (0.52-1.04); Glucose 89 mg/dL (74-106); SODIUM 139 mmol/L (137-145)
[2017-09-10 05:46] LABS: Mean Corpuscular Hemoglobin 27.8 pg (26-32)
[2017-09-10] MEDS ORDERED: DUONEB 0.5-3 MG/3 ml Neb IH PRN (07:00)
[2017-09-10 08:12] VITALS: BP 109/55
--- NOTE | 2017-09-10 08:39 | XRAY ---
Indication: Left-sided headache and left-sided numbness. Multiple contiguous axial images obtained through the head without contrast. Comparison: August 07, 2016. Again normal appearing brain parenchyma, ventricles, and bony calvarium. Visualized paranasal sinuses and mastoid air cells are clear. Impression: Stable normal CT head without contrast exam. Comment: Preliminary interpretation was made by [facility]. No discrepancy. CTDI 68.98
--- NOTE | 2017-09-10 08:42 | XRAY ---
Indication: Short of breath. Cough. Comparison: June 25, 2017. Portable chest demonstrates stable bibasilar infiltrates/atelectasis and right hemidiaphragm elevation. Remaining heart, lungs, and bony thorax unremarkable. New Port-A-Cath and hub coiled over the right lower lung. Comment: Preliminary interpretation was made by [facility]. No discrepancy.
--- NOTE | 2017-09-10 09:00 | XRAY ---
Indication: Left-sided headache and left-sided numbness. Conventional contrast enhanced CTA neck was performed using 100 cc Isovue 370 contrast. Two-dimensional sagittal and coronal reformatted images obtained. Comparison: None Visualized aortic arch demonstrate normal branching right brachiocephalic, left common carotid, and left subclavian arteries without critical stenosis/obstruction. Left and right carotid arteries are normal in CTA appearance widely patent. Vertebral arteries are also widely patent with the left slightly larger in size. Visualized soft tissues including lung apices unremarkable. CT head and CTA head reported separately. Impression: Normal CTA neck. Comment: Preliminary interpretation was made by [facility]. No discrepancy. CT DI 83.92
--- NOTE | 2017-09-10 09:01 | PCM.SSS ---
History of Present Illness - Chief Complaint Chief Complaint: TIA and numbness History of Present Illness: is a 41 year old female who came to ER last night, she tells me complaining of 30min of L hand (fingertips) tingling and numb. States her face was numb bilaterally with some drooping of the eyelid on the L. She felt some difficulty breathing but states she thinks that was just anxiety. She denies having slurred speech. This morning she is feeling "normal" and would like to go home. Her last echo was over a year ago. I do not see a record of a recent carotid doppler. She has a port which was placed this winter. CT brain was nl in ER. She will be given regular diet. If she tolerates that and can get her echo and carotid doppler done today, I think she can go home. - Review of Systems Cardiac: Other (a little "uneasiness" in the chest last night which has resolved ) Genitourinary Symptoms: Vaginal Discharge Musculoskeletal: Arthralgias (chronic) Neurological: Parasthesia Psychological: Anxiety, No Depression, No Suicidal Ideations All Other Systems: Reviewed and Negative Medications & Allergies Home Medications: Home Medication List Diltiazem HCl [Cartia Xt] 180 mg PO QPM 09/27/14 [History Confirmed 09/10/17] Levothyroxine Sodium 100 Mcg [Synthroid 100 Mcg] 100 mcg PO QAM 09/27/14 [ History Confirmed 09/10/17] Simvastatin [Zocor] 20 mg PO HS 09/27/14 [History Confirmed 09/10/17] Clopidogrel Bisulfate 75 mg [PLAVIX 75 MG Tablet] 75 mg PO DAILY 04/05/15 [History Confirmed 09/10/17] Cyclobenzaprine HCl 10 mg [Cyclobenzaprine 10 MG] 10 mg PO DAILY 07/16/15 [History Confirmed 09/10/17] Lamotrigine 100 mg [lamICTAL 100MG TABLET] 200 mg PO BID 09/27/15 [ History Confirmed 09/10/17] Bumetanide 1 mg [Bumex 1 mg] 1 mg PO DAILY #30 tablet 10/02/15 [Rx Confirmed 09/10/17] Diazepam 5 mg [Valium 5 MG] 5 mg PO TIDPRN 02/14/16 [History Confirmed 02/19] Omeprazole 20 MG [Prilosec 20 mg] 20 mg PO DAILY 04/20/16 [History Confirmed 02/19] Trazodone HCl [Oleptro ER] 150 mg PO HS 04/20/16 [History Confirmed 09/10/17] Dulaglutide [Trulicity] 0.75 mg SQ WEEKLY 10/09/16 [History Confirmed 09/10/17] Sucralfate 1 gm [Carafate 1 GM] 1 g PO ACHS #28 tablet 10/16/16 [Rx Confirmed 09/10/17] Albuterol Sulfate [Ventolin Hfa] 8 gm IH Q4HPRN PRN 12/21/16 [History Confirmed 09/10/17] Sertraline HCl 50 mg [Zoloft 50 mg Tablet] 50 mg PO DAILY 12/21/16 [History Confirmed 09/10/17] Estradiol 0.5 mg PO DAILY 07/30/17 [History Confirmed 09/10/17] Loratadine 10 mg [Claritin 10 mg] 10 mg PO DAILY 07/30/17 [History Confirmed 09/10/17] Potassium Chloride [K-Dur] 20 meq PO DAILY 08/03/17 [History Confirmed 09/10/17] Gabapentin 800 mg PO QID 09/10/17 [History Confirmed 09/10/17] Magnesium Oxide 400 mg PO DAILY 09/10/17 [History Confirmed 09/10/17] Naproxen 500 mg [Naprosyn 500 MG] 500 mg PO [id number] PRN 09/10/17 [History Confirmed 09/10/17] Oxycodone / APAP 10/325 mg [Oxycodone-Acetaminophen 10-325] 1 tab PO Q4- 6HPRN PRN 09/10/17 [History Confirmed 09/10/17] Propranolol HCl 80 mg PO DAILY 09/10/17 [History Confirmed 09/10/17] Allergies/Adverse Reactions: Allergies Allergy/AdvReac Type Severity Reaction Status Date / Time aspirin Allergy Mild Nausea and Verified 09/10/17 00:01 Vomiting codeine [Codeine] Allergy Mild Itching Verified 09/10/17 00:01 fluoxetine HCl [From Prozac] Allergy Mild Verified 09/10/17 00:01 Penicillins Allergy Mild Nausea and Verified 09/10/17 00:01 Vomiting promethazine HCl Allergy Mild tremors Verified 09/10/17 00:01 [From Phenergan] doxycycline hyclate AdvReac Verified 09/10/17 00:01 [From Vibra-Tabs] steroid from breathing Allergy Mild Blisters Uncoded 09/10/17 00:01 treatment - Past Medical History Past Medical History: Yes Neurological History: Epilepsy, Seizures, Stroke ENT History: No Pertinent History Cardiac History: Arrhythmia, Congestive Heart Failure, Deep Vein Thrombosis, Hypertension Respiratory History: Pulmonary Embolism, Other Endocrine Medical History: Diabetes Type I, Hypothyroidism Musculoskelatal History: Other GI Medical History: GERD, Hernia History: No Pertinent History Pyscho-Social History: Anxiety, Bipolar, Depression, Panic Disorder Reproductive Disorders: Endometriosis Comment: Mitral valve prolapse with regurgitation - Female History Hx Last Menstrual Period: hyster Are you now?: No - Past Surgical History Past Surgical History: Yes Neuro Surgical History: No Pertinent History Cardiac History: Cardiac Catheterization Respiratory Surgery: No Pertinent History GI Surgical History: Cholecystectomy, Hernia Repair Genitourinary Surgical Hx: No Pertinent History Musculskeletal Surgical Hx: Joint Replacement, Orthopedic Surgery Female Surgical History: Hysterectomy, Dilation & Curettage Other Surgical History: torn miniscus and implant-RT KNEE" partial scope replacement" - Social History Smoking Status: Current some day smoker How long have you smoked: 15 years Exposure to second hand smoke: No Alcohol: None Drug Use: none Significant Family History: no pertinent family hx, heart disease, diabetes, hypertension - Physical Exam Vital Signs: Vital Signs - 24 hr Temp Pulse Resp BP Pulse Ox 09/10/17 08:00 97.8 F 71 16 109/55 98 09/10/17 04:20 97.9 F 69 20 100/61 97 09/10/17 01:15 98.1 F 75 18 117/59 99 09/10/17 00:25 84 18 102/63 99 09/10/17 00:02 100 09/09/17 23:21 84 16 106/71 100 09/09/17 21:40 77 14 98/75 100 09/09/17 20:50 82 18 102/71 100 09/09/17 20:10 84 14 115/76 100 09/09/17 19:33 98.3 F 90 18 136/73 100 Oxygen-Last 24 hours O2 Percentage 2 Liters = 28% O2 Percentage 2 Liters = 28% O2 Percentage 4 Liters = 36% O2 Percentage 4 Liters = 36% O2 Percentage 4 Liters = 36% O2 Percentage 4 Liters = 36% O2 Percentage 4 Liters = 36% O2 Percentage 4 Liters = 36% O2 Percentage 4 Liters = 36% General Appearance: no apparent distress, alert Neurologic Exam: oriented x 3, cooperative, return agent II-XII nml as tested Eye Exam: PERRL/EOMI, eyes nml inspection Ears, Nose, Throat Exam: moist mucous membranes Neck Exam: normal inspection, non-tender, No lymphadenopathy Respiratory Exam: normal breath sounds, lungs clear, No crackles/rales, No rhonchi, No wheezing Cardiovascular Exam: regular rate/rhythm, normal heart sounds, No murmur Gastrointestinal/Abdomen Exam: soft, normal bowel sounds, No tenderness, No distention, No mass, No guarding, No rebound Back Exam: normal inspection, No rash Extremity Exam: normal inspection, No pedal edema, No swelling Skin Exam: normal color, warm, dry, No rash Results - Labs Lab/Micro Results: Lab Results-Last 24 Hours 09/10/17 09/10/17 09/10/17 Range/Units 02:01 05:09 05:09 WBC 6.4 (4.0-10.5) K/mm3 RBC 4.27 (4.1-5.4) M/mm3 Hgb 11.9 L (12.0-16.0) gm/dl Hct 37.7 (35-47) % MCV 88.3 (78-100) fl MCH 27.8 (26-32) pg MCHC 31.6 L (32-36) g/dl RDW 14.6 H (11.5-14.0) % Plt Count 191 (150-450) K/mm3 MPV 10.4 H (6-9.5) fl Gran % 46.0 (36.0-66.0) % Eos # (Auto) 0.67 H (0-0.5) Absolute Lymphs (auto) 2.23 (1.0-4.6) Absolute Monos (auto) 0.53 (0.0-1.3) Lymphocytes % 35.0 (24.0-44.0) % Monocytes % 8.3 (0.0-12.0) % Eosinophils % 10.5 H (0.00-5.0) % Basophils % 0.2 (0.0-0.4) % Absolute Granulocytes 2.93 (1.4-6.9) Basophils # 0.01 (0-0.4) Sodium (137-145) mmol/L Potassium (3.5-5.1) mmol/L Chloride (98-107) mmol/L Carbon Dioxide (22-30) mmol/L Anion Gap (5-15) MEQ/L BUN (7-17) mg/dL Creatinine (0.52-1.04) mg/dL Estimated GFR ML/MIN Glucose (74-106) mg/dL Hemoglobin A1c (4.5-6.0) % Calcium (8.4-10.2) mg/dL Troponin I < 0.012 < 0.012 (0.000-0.034) ng/mL 09/10/17 09/10/17 09/10/17 Range/Units 05:09 05:15 07:47 WBC (4.0-10.5) K/mm3 RBC (4.1-5.4) M/mm3 Hgb (12.0-16.0) gm/dl Hct (35-47) % MCV (78-100) fl MCH (26-32) pg MCHC (32-36) g/dl RDW (11.5-14.0) % Plt Count (150-450) K/mm3 MPV (6-9.5) fl Gran % (36.0-66.0) % Eos # (Auto) (0-0.5) Absolute Lymphs (auto) (1.0-4.6) Absolute Monos (auto) (0.0-1.3) Lymphocytes % (24.0-44.0) % Monocytes % (0.0-12.0) % Eosinophils % (0.00-5.0) % Basophils % (0.0-0.4) % Absolute Granulocytes (1.4-6.9) Basophils # (0-0.4) Sodium 139 (137-145) mmol/L Potassium 4.0 (3.5-5.1) mmol/L Chloride 102 (98-107) mmol/L Carbon Dioxide 29 (22-30) mmol/L Anion Gap 12.1 (5-15) MEQ/L BUN 5 L (7-17) mg/dL Creatinine 0.62 (0.52-1.04) mg/dL Estimated GFR > 60.0 ML/MIN Glucose 89 (74-106) mg/dL Hemoglobin A1c 5.47 (4.5-6.0) % Calcium 9.4 (8.4-10.2) mg/dL Troponin I < 0.012 (0.000-0.034) ng/mL - Radiology Impressions Radiology Exams & Impressions: Radiology Procedures Category Date Time Status CAROTID BILATERAL [US] Routine Exams 09/10/17 Ordered ECHO W/2D AND DOPPLER [US] Routine Exams 09/10/17 Ordered - Other Procedures and Tests Respiratory Therapy 09/10/17 04:45 Respiratory MDI UD 09/10/17 04:48 neb [Respiratory Nebulizer] PRN 09/10/17 04:50 Oxygen NASAL CANNULA 4 lpm Assessment/Plan (1) TIA (transient ischemic attack) Current Visit: Yes Status: Acute Qualifiers: Transient cerebral ischemia type: unspecified Qualified Code(s): G45.9 - Transient cerebral ischemic attack, unspecified Assessment & Plan: Symptoms have resolved. Has been on monitor overnight with no issues. Will do testing today including carotid dopplers and echocardiogram. Will avoid MRI as pt has a port. Likely d/c home after testing completed. (2) Diabetes type 2, controlled Current Visit: No Status: Acute Qualifiers: Diabetes mellitus complication status: without complication Code(s): E11.9 - TYPE 2 DIABETES MELLITUS WITHOUT COMPLICATIONS Hospital Summary - Hospital Course Hospital Course: is a 41 year old female who came to ER last night, she tells me complaining of 30min of L hand (fingertips) tingling and numb. States her face was numb bilaterally with some drooping of the eyelid on the L. She felt some difficulty breathing but states she thinks that was just anxiety. She denies having slurred speech. This morning she is feeling "normal" and would like to go home. Her last echo was over a year ago. I do not see a record of a recent carotid doppler. She has a port which was placed this winter. CT brain was nl in ER. She will be given regular diet. If she tolerates that and can get her echo and carotid doppler done today, I think she can go home. - Vitals & Intake/Output Vital Signs: Vital Signs Temperature 97.8 F 09/10/17 08:00 Pulse Rate 71 09/10/17 08:00 Respiratory Rate 16 09/10/17 08:00 Blood Pressure 109/55 09/10/17 08:00 O2 Sat by Pulse Oximetry 98 09/10/17 08:00 Oxygen-Last Documented O2 Percentage 2 Liters = 28% Intake & Output: Intake & Output 09/07/17 09/08/17 09/09/17 09/10/17 11:59 11:59 11:59 11:59 Weight 88.7 kg - Lab Result Diagrams: 09/10/17 05:09 09/10/17 05:09 Lab Results-Last 24 Hrs: Lab Results-Last 24 Hours 09/10/17 09/10/17 09/10/17 Range/Units 02:01 05:09 05:09 WBC 6.4 (4.0-10.5) K/mm3 RBC 4.27 (4.1-5.4) M/mm3 Hgb 11.9 L (12.0-16.0) gm/dl Hct 37.7 (35-47) % MCV 88.3 (78-100) fl MCH 27.8 (26-32) pg MCHC 31.6 L (32-36) g/dl RDW 14.6 H (11.5-14.0) % Plt Count 191 (150-450) K/mm3 MPV 10.4 H (6-9.5) fl Gran % 46.0 (36.0-66.0) % Eos # (Auto) 0.67 H (0-0.5) Absolute Lymphs (auto) 2.23 (1.0-4.6) Absolute Monos (auto) 0.53 (0.0-1.3) Lymphocytes % 35.0 (24.0-44.0) % Monocytes % 8.3 (0.0-12.0) % Eosinophils % 10.5 H (0.00-5.0) % Basophils % 0.2 (0.0-0.4) % Absolute Granulocytes 2.93 (1.4-6.9) Basophils # 0.01 (0-0.4) Sodium (137-145) mmol/L Potassium (3.5-5.1) mmol/L Chloride (98-107) mmol/L Carbon Dioxide (22-30) mmol/L Anion Gap (5-15) MEQ/L BUN (7-17) mg/dL Creatinine (0.52-1.04) mg/dL Estimated GFR ML/MIN Glucose (74-106) mg/dL Hemoglobin A1c (4.5-6.0) % Calcium (8.4-10.2) mg/dL Troponin I < 0.012 < 0.012 (0.000-0.034) ng/mL 09/10/17 09/10/17 09/10/17 Range/Units 05:09 05:15 07:47 WBC (4.0-10.5) K/mm3 RBC (4.1-5.4) M/mm3 Hgb (12.0-16.0) gm/dl Hct (35-47) % MCV (78-100) fl MCH (26-32) pg MCHC (32-36) g/dl RDW (11.5-14.0) % Plt Count (150-450) K/mm3 MPV (6-9.5) fl Gran % (36.0-66.0) % Eos # (Auto) (0-0.5) Absolute Lymphs (auto) (1.0-4.6) Absolute Monos (auto) (0.0-1.3) Lymphocytes % (24.0-44.0) % Monocytes % (0.0-12.0) % Eosinophils % (0.00-5.0) % Basophils % (0.0-0.4) % Absolute Granulocytes (1.4-6.9) Basophils # (0-0.4) Sodium 139 (137-145) mmol/L Potassium 4.0 (3.5-5.1) mmol/L Chloride 102 (98-107) mmol/L Carbon Dioxide 29 (22-30) mmol/L Anion Gap 12.1 (5-15) MEQ/L BUN 5 L (7-17) mg/dL Creatinine 0.62 (0.52-1.04) mg/dL Estimated GFR > 60.0 ML/MIN Glucose 89 (74-106) mg/dL Hemoglobin A1c 5.47 (4.5-6.0) % Calcium 9.4 (8.4-10.2) mg/dL Troponin I < 0.012 (0.000-0.034) ng/mL - Radiology Exams Ordered Rad Exams-Entire Visit: Radiology Procedures Category Date Time Status CAROTID BILATERAL [US] Routine Exams 09/10/17 Ordered ECHO W/2D AND DOPPLER [US] Routine Exams 09/10/17 Ordered - Procedures and Test Procedures and Tests throughout Hospitalization: Therapy Orders & Screens 09/10/17 01:54 OT Screen per Nursing Assess ONCE Comment: Protocol Order Physician Instructions: Greater than 3 points order OT Admission Screening Reason For Exam: Triggered on Admission Diagnosis: TIA and numbness Open Wound/Cellutlitis/Pressure Ulcers: No Acute Fx/ORIF/Change in wt bearing status: No Severe MUSCULOSKELETAL pain: No ADL Dysfunction: No Acute CVA w/Hemiparesis/Hemiplegia: Yes Decreased Functional Mobility/Strength: No Sprain/Strain: No Acute Post-op Mobility Dysfunction: No Total Points: 5 PT Screen per Nursing Assess ONCE Comment: Protocol Order Physician Instructions: Greater than 3 points order PT Admission Screenin Reason For Exam: Triggered on Admission Diagnosis: TIA and numbness Open Wound/Cellutlitis/Pressure Ulcers: No Acute Fx/ORIF/Change in wt bearing status: No Severe MUSCULOSKELETAL pain: No ADL Dysfunction: No Acute CVA w/Hemiparesis/Hemiplegia: Yes Decreased Functional Mobility/Strength: No Sprain/Strain: No Acute Post-op Mobility Dysfunction: No Total Points: 5 RT Screen per Nursing Assess ONCE Comment: Protocol Order Physician Instructions: Greater than 3 points order RT Admission Screen Reason For Exam: Triggered on Admission Diagnosis: TIA and numbness Diagnosis: TIA and numbness Pneumonia: No Home O2: Yes: 4 L Asthma: No CHF: Yes Home CPAP/BIPAP: No Home Nebs/MDI: Yes: Ventolin Total Points: 13 Smoking Cessation Education ONCE Comment: Diagnosis: TIA and numbness Smoking Status: Current some day smoker How long have you smoked: 15 years Have you smoked in the past 12 months: Yes Approximately how many cigarettes per day: 10 Do you dip or chew tobacco: No If,Former Smoker,when did you quit: one month ago 09/10/17 04:45 Respiratory MDI UD Comment: ALB MDI Q2-3PRN Diagnosis: TIA and numbness 09/10/17 04:48 neb [Respiratory Nebulizer] PRN Comment: DUO Q4PRN Diagnosis: TIA and numbness 09/10/17 04:50 Oxygen NASAL CANNULA 4 lpm Comment: Diagnosis: TIA and numbness - Discharge Disposition: Home, Self-Care Condition: Good Prescriptions: Continue Simvastatin [Zocor] 20 mg PO HS Levothyroxine Sodium 100 Mcg [Synthroid 100 Mcg] 100 mcg PO QAM Diltiazem HCl [Cartia Xt] 180 mg PO QPM Clopidogrel Bisulfate 75 mg [PLAVIX 75 MG Tablet] 75 mg PO DAILY Cyclobenzaprine HCl 10 mg [Cyclobenzaprine 10 MG] 10 mg PO DAILY Lamotrigine 100 mg [lamICTAL 100MG TABLET] 200 mg PO BID Bumetanide 1 mg [Bumex 1 mg] 1 mg PO DAILY #30 tablet Diazepam 5 mg [Valium 5 MG] 5 mg PO TIDPRN Trazodone HCl [Oleptro ER] 150 mg PO HS Omeprazole 20 MG [Prilosec 20 mg] 20 mg PO DAILY Dulaglutide [Trulicity] 0.75 mg SQ WEEKLY Sucralfate 1 gm [Carafate 1 GM] 1 g PO ACHS #28 tablet Albuterol Sulfate [Ventolin Hfa] 8 gm IH Q4HPRN PRN PRN Reason: Shortness Of Breath/Wheezing Sertraline HCl 50 mg [Zoloft 50 mg Tablet] 50 mg PO DAILY Loratadine 10 mg [Claritin 10 mg] 10 mg PO DAILY Estradiol 0.5 mg PO DAILY Potassium Chloride [K-Dur] 20 meq PO DAILY Propranolol HCl 80 mg PO DAILY Oxycodone / APAP 10/325 mg [Oxycodone-Acetaminophen 10-325] 1 tab PO Q4 -6HPRN PRN PRN Reason: Pain Magnesium Oxide 400 mg PO DAILY Gabapentin 800 mg PO QID Naproxen 500 mg [Naprosyn 500 MG] 500 mg PO [id number] PRN PRN Reason: Pain Follow up with: ERICA BROCK [Primary Care Provider] - 1 Week
--- NOTE | 2017-09-10 09:02 | XRAY ---
Indication: Left-sided headache and left-sided numbness. Conventional contrast enhanced CTA head was performed using 100 cc Isovue 370 contrast. Two-dimensional sagittal and coronal reformatted images obtained. Comparison: None Normal CTA appearance of the [place]. No abnormal enhancing intra-or extra-axial mass. CT head and CTA neck reported separately. Impression: Normal CTA head. Comment: Preliminary interpretation was made by [facility]. No discrepancy. CT DI 83.92
[2017-09-10] MEDS ORDERED: Ventolin Hfa MDI IH PRN (09:28)
[2017-09-10] MEDS ORDERED: Naprosyn 500 MG PO PRN (09:28)
[2017-09-10] MEDS ORDERED: Valium 5 MG PO PRN (09:30)
[2017-09-10 09:39] VITALS: PULSE 65; O2SAT 97
[2017-09-10] MEDS ORDERED: CLARITIN 10 MG PO SCH (10:00)
[2017-09-10] MEDS ORDERED: Cyclobenzaprine 10 MG PO SCH (10:00)
[2017-09-10] MEDS ORDERED: Protonix 40MG Tablet PO SCH (10:00)
[2017-09-10] MEDS ORDERED: lamICTAL 100MG TABLET PO SCH (10:00)
[2017-09-10] MEDS ORDERED: ZOLOFT 50 MG TABLET PO SCH (10:00)
[2017-09-10] MEDS ORDERED: ENOXAPARIN SODIUM SQ SCH (10:00)
[2017-09-10] MEDS ORDERED: SYNTHROID 100 MCG PO SCH (10:00)
[2017-09-10] MEDS ORDERED: PLAVIX 75 MG Tablet PO SCH (10:00)
[2017-09-10] MEDS ORDERED: Neurontin 400 MG PO SCH (10:00)
[2017-09-10] MEDS ORDERED: Klor Con 10 MEQ PO SCH (10:00)
[2017-09-10] MEDS ORDERED: BUMEX 1 MG PO SCH (10:00)
[2017-09-10] MEDS ORDERED: ESTRACE 1 MG PO SCH (10:00)
[2017-09-10] MEDS ORDERED: NON-FORMULARY ITEM (Potassium Chloride [K-Dur] 20 MEQ) PO SCH (10:00)
[2017-09-10] MEDS ORDERED: MAG-OX 400 PO SCH (10:00)
[2017-09-10] MEDS ORDERED: Carafate 1 GM PO SCH (11:30)
[2017-09-10] MEDS ORDERED: Desyrel 150 MG PO SCH (22:00)
[2017-09-10] MEDS ORDERED: Cardizem CD 180 MG PO SCH (22:00)
[2017-09-10] MEDS ORDERED: ZOCOR 20MG PO SCH (22:00)
[2017-09-10] MEDS ORDERED: TRAZODONE HCL 150 MG PO SCH (22:00)
== END 2017-09-10 11:25 | disposition home or self-care (01) ==
LOC: ED 19:20 → MED SURG 09-10 00:52 → INTOOBSV 09-10 00:52
PROVIDERS: ADMIT Family Medicine; ATTEND Family Medicine
DX: G45.9 Transient cerebral ischemic attack, unspecified (principal); E11.9 Type 2 diabetes mellitus without complications; G40.909 Epilepsy, unspecified, not intractable, without status epilepticus; F41.9 Anxiety disorder, unspecified; I50.9 Heart failure, unspecified; F31.9 Bipolar disorder, unspecified; K21.9 Gastro-esophageal reflux disease without esophagitis; I10 Essential (primary) hypertension; I34.0 Nonrheumatic mitral (valve) insufficiency; N80.9 Endometriosis, unspecified; Z79.899 Other long term (current) drug therapy; Z86.718 Personal history of other venous thrombosis and embolism; Z86.711 Personal history of pulmonary embolism; Z72.0 Tobacco use
CPT/HCPCS: 36000; 36415; 70450; 70496; 70498; 71045; 80048; 80053; 80307; 81000; 83036; 84484; 85025; 85610; 85730; 87086; 93005; 93041; 93268; 94640; 94760; 99284; 99285; J1650; A9270-GY; G0378

== ENCOUNTER 2017-09-24 20:26 | Emergency (ER) | payer OTHER ==
--- NOTE | 2017-09-24 21:08 | ERPHSYRPT ---
- History of Present Illness Time Seen by Provider: 09/24/17 21:08 Historian: patient Exam Limitations: no limitations Patient Subjective Stated Complaint: CP x 2 hours. pain with breathing ansd coughing. non productive cough Triage Nursing Assessment: aleert and oriented. states pain in left chest going into left arm. pain with deep breathing. pain on palpation. lungs clear. on 02 at 4L nc all the time. took 4 ntg with no relief. Physician History: The patient is a 41-year-old female complaining of sudden onset of central chest pain that was worse with breathing and coughing and with radiation to her left shoulder and arm. Pt has been coughing for several days. She cannot describe with accuracy what kind of pain it is. She denies nausea, vomiting, shortness of breath, or sweating. The chest pain began approximately 1-2 hours ago. She took 4 of her own nitroglycerin without any relief. 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 She has lung disease and is on 3 L O2 nasal cannula at home. She had a cardiac catheter done and she states she had minimal blockage. Her past medical history is significant for A. fib, TIAs, DVT, pneumonia, diabetes, neuropathy, pseudoseizures, and chronic lung disease. Timing/Duration: today, hour(s) (1 to 2 ), sudden Activities at Onset: none Quality: aching Location: central Chest Pain Radiation: neck, arm Severity of Pain-Max: moderate Severity of Pain-Current: moderate Modifying Factors: Improves With: nitroglycerin Associated Symptoms: cough, No nausea, No vomiting Prior Chest Pain/Cardiac Workup: non-cardiac, cardiac cath (mild blockage) Nitro Today/Relief: 0.4 mg x 4, no relief Aspirin Treatment Today: no aspirin today Allergies/Adverse Reactions: aspirin Allergy (Mild, Verified 09/10/17 00:01) Nausea and Vomiting codeine [Codeine] Allergy (Mild, Verified 09/10/17 00:01) Itching fluoxetine HCl [From Prozac] Allergy (Mild, Verified 09/10/17 00:01) confusion , "jumped out of a moving truck" Penicillins Allergy (Mild, Verified 09/10/17 00:01) Nausea and Vomiting promethazine HCl [From Phenergan] Allergy (Mild, Verified 09/10/17 00:01) tremors doxycycline hyclate [From Vibra-Tabs] Adverse Reaction (Verified 09/10/17 00:01) steroid from breathing treatment Allergy (Mild, Uncoded 09/10/17 00:01) Blisters Home Medications: Diltiazem HCl [Cartia Xt] 180 mg PO QPM 09/27/14 [History] Levothyroxine Sodium 100 Mcg [Synthroid 100 Mcg] 100 mcg PO QAM 09/27/14 [ History] Simvastatin [Zocor] 20 mg PO HS 09/27/14 [History] Clopidogrel Bisulfate 75 mg [PLAVIX 75 MG Tablet] 75 mg PO DAILY 04/05/15 [History] Cyclobenzaprine HCl 10 mg [Cyclobenzaprine 10 MG] 10 mg PO DAILY 07/16/15 [History] Lamotrigine 100 mg [lamICTAL 100MG TABLET] 200 mg PO BID 09/27/15 [History ] Diazepam 5 mg [Valium 5 MG] 5 mg PO TIDPRN 02/14/16 [History] Omeprazole 20 MG [Prilosec 20 mg] 20 mg PO DAILY 04/20/16 [History] Trazodone HCl [Oleptro ER] 150 mg PO HS 04/20/16 [History] Dulaglutide [Trulicity] 0.75 mg SQ WEEKLY 10/09/16 [History] Albuterol Sulfate [Ventolin Hfa] 8 gm IH Q4HPRN PRN 12/21/16 [History] Sertraline HCl 50 mg [Zoloft 50 mg Tablet] 50 mg PO DAILY 12/21/16 [History] Estradiol 0.5 mg PO DAILY 07/30/17 [History] Loratadine 10 mg [Claritin 10 mg] 10 mg PO DAILY 07/30/17 [History] Potassium Chloride [K-Dur] 20 meq PO DAILY 08/03/17 [History] Gabapentin 800 mg PO QID 09/10/17 [History] Magnesium Oxide 400 mg PO DAILY 09/10/17 [History] Naproxen 500 mg [Naprosyn 500 MG] 500 mg PO [id number] PRN 09/10/17 [History] Oxycodone / APAP 10/325 mg [Oxycodone-Acetaminophen 10-325] 1 tab PO Q4- 6HPRN PRN 09/10/17 [History] Propranolol HCl 80 mg PO DAILY 09/10/17 [History] Hx Tetanus, Diphtheria Vaccination/Date Given: Yes Hx Influenza Vaccination/Date Given: Yes Hx Pneumococcal Vaccination/Date Given: No Immunizations Up to Date: No - Review of Systems Constitutional: No Fever, No Chills Eyes: No Symptoms Ears, Nose, & Throat: No Symptoms Respiratory: Cough, Dyspnea (normal for pt) Cardiac: Chest Pain, No Palpitations Abdominal/Gastrointestinal: No Abdominal Pain, No Nausea, No Vomiting, No Diarrhea Genitourinary Symptoms: No Dysuria Musculoskeletal: No Back Pain, No Neck Pain Skin: No Rash Neurological: No Dizziness, No Focal Weakness, No Sensory Changes Psychological: No Symptoms Endocrine: No Symptoms Hematologic/Lymphatic: No Symptoms Immunological/Allergic: No Symptoms All Other Systems: Reviewed and Negative - Past Medical History Pertinent Past Medical History: Yes Neurological History: Epilepsy, Seizures, Stroke ENT History: No Pertinent History Cardiac History: Arrhythmia, Congestive Heart Failure, Deep Vein Thrombosis, Hypertension Respiratory History: Pulmonary Embolism, Other Endocrine Medical History: Diabetes Type I, Hypothyroidism Musculoskeletal History: Other GI Medical History: GERD, Hernia History: No Pertinent History Psycho-Social History: Anxiety, Bipolar, Depression, Panic Disorder Female Reproductive Disorders: Endometriosis Other Medical History: Mitral valve prolapse with regurgitation - Past Surgical History Past Surgical History: Yes Neuro Surgical History: No Pertinent History Cardiac: Cardiac Catheterization Respiratory: No Pertinent History Gastrointestinal: Cholecystectomy, Hernia Repair Genitourinary: No Pertinent History Musculoskeletal: Joint Replacement, Orthopedic Surgery Female Surgical History: Hysterectomy, Dilation & Curettage Other Surgical History: torn miniscus and implant-RT KNEE" partial scope replacement" - Social History Smoking Status: Current every day smoker How long have you smoked: 15 years Exposure to second hand smoke: No Alcohol Use: None Drug Use: none Patient Lives Alone: No Significant Family History: no pertinent family hx, heart disease, diabetes, hypertension - Female History Hx Now: No - Nursing Vital Signs Nursing Vital Signs: Initial Vital Signs Temperature 97.8 F 09/24/17 20:29 Pulse Rate 85 09/24/17 20:29 Respiratory Rate 18 09/24/17 20:29 Blood Pressure 115/82 09/24/17 20:29 O2 Sat by Pulse Oximetry 98 09/24/17 20:29 Pain Scale Pain Intensity 9 - Physical Exam General Appearance: no apparent distress, alert Eye Exam: PERRL/EOMI, eyes nml inspection Ears, Nose, Throat Exam: normal ENT inspection, moist mucous membranes Neck Exam: normal inspection, non-tender, supple, full range of motion Respiratory Exam: normal breath sounds, chest tenderness (tenderness at mid sternum and left trapezius that reproduces pain), lungs clear, No respiratory distress Cardiovascular Exam: regular rate/rhythm, normal heart sounds Gastrointestinal/Abdomen Exam: soft, No tenderness, No mass Pelvic Exam: not done Rectal Exam: not done Back Exam: normal inspection, No CVA tenderness, No vertebral tenderness Extremity Exam: normal inspection, normal range of motion Neurologic Exam: alert, oriented x 3, cooperative, normal mood/affect, sensation nml, No motor deficits Skin Exam: normal color, warm, dry SpO2 Interpretation: normal SpO2: 98 Oxygen Delivery: Room Air - Course EKG Interpreted by Me: RATE, Sinus Rhythm, NORMAL AXIS, NORMAL INTERVALS, NORMAL QRS, NORMAL ST-T - Radiology Exams Chest X-ray Interpretation: Interpreted by me, Negative (non acute chest, no change comp AP cxr 09/09/17.) Ordered Tests: Active Orders 24 hr Category Date Time Status 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 STAT Care 09/24/17 21:20 Active EKG-ER Only STAT Care 09/24/17 21:18 Active IV Insertion STAT Care 09/24/17 21:18 Active Oxygen-ED Only NASAL CANNULA 3 lpm Care 09/24/17 21:18 Active Pulse Oximetry (ED) STAT Care 09/24/17 21:18 Active CHEST 2 VIEWS (PA AND LAT) Stat Exams 09/24/17 21:19 Taken CBC W DIFF Stat Lab 09/24/17 21:48 Completed CK-Creatinine Phosphokinase Stat Lab 09/24/17 21:48 Completed CMP Stat Lab 09/24/17 21:48 Completed NT PRO BNP Stat Lab 09/24/17 21:48 Completed TROPONIN Q3H Lab 09/24/17 21:48 Completed TROPONIN Q3H Lab 09/25/17 00:27 Completed TROPONIN Q3H Lab 09/25/17 03:30 Ordered TROPONIN Q3H Lab 09/25/17 06:30 Ordered TROPONIN Q3H Lab 09/25/17 09:30 Ordered Medication Summary Generic Name Dose Route Start Last Admin Trade Name Parker PRN Reason Stop Dose Admin Nitroglycerin 0.4 mg 09/24/17 21:18 Nitrostat 0.4 Mg (Ed) SL 10/24/17 21:17 STAT PRN CHEST PAIN Lab/Rad Data: Laboratory Result Diagrams 09/24/17 21:48 09/24/17 21:48 Laboratory Results 09/25/17 09/24/17 09/24/17 Range/Units 00:27 21:48 21:48 WBC (4.0-10.5) K/mm3 RBC (4.1-5.4) M/mm3 Hgb (12.0-16.0) gm/dl Hct (35-47) % MCV (78-100) fl MCH (26-32) pg MCHC (32-36) g/dl RDW (11.5-14.0) % Plt Count (150-450) K/mm3 MPV (6-9.5) fl Gran % (36.0-66.0) % Eos # (Auto) (0-0.5) Absolute Lymphs (auto) (1.0-4.6) Absolute Monos (auto) (0.0-1.3) Lymphocytes % (24.0-44.0) % Monocytes % (0.0-12.0) % Eosinophils % (0.00-5.0) % Basophils % (0.0-0.4) % Absolute Granulocytes (1.4-6.9) Basophils # (0-0.4) Sodium 144 (137-145) mmol/L Potassium 4.0 (3.5-5.1) mmol/L Chloride 103 (98-107) mmol/L Carbon Dioxide 32 H (22-30) mmol/L Anion Gap 12.8 (5-15) MEQ/L BUN 9 (7-17) mg/dL Creatinine 0.83 (0.52-1.04) mg/dL Estimated GFR > 60.0 ML/MIN Glucose 90 (74-106) mg/dL Calcium 9.5 (8.4-10.2) mg/dL Total Bilirubin 0.20 (0.2-1.3) mg/dL AST 20 (14-36) U/L ALT 13 (0-35) U/L Alkaline Phosphatase 114 (38-126) U/L Creatine Kinase 49 (30-135) U/L Troponin I < 0.012 < 0.012 (0.000-0.034) ng/mL NT-Pro-B Natriuret Pep 70.7 (0-450) pg/mL Serum Total Protein 7.6 (6.3-8.2) g/dL Albumin 4.4 (3.5-5.0) g/dL 09/24/17 Range/Units 21:48 WBC 6.1 (4.0-10.5) K/mm3 RBC 4.35 (4.1-5.4) M/mm3 Hgb 12.2 (12.0-16.0) gm/dl Hct 38.4 (35-47) % MCV 88.3 (78-100) fl MCH 28.0 (26-32) pg MCHC 31.8 L (32-36) g/dl RDW 14.2 H (11.5-14.0) % Plt Count 185 (150-450) K/mm3 MPV 10.6 H (6-9.5) fl Gran % 57.4 (36.0-66.0) % Eos # (Auto) 0.43 (0-0.5) Absolute Lymphs (auto) 1.68 (1.0-4.6) Absolute Monos (auto) 0.48 (0.0-1.3) Lymphocytes % 27.5 (24.0-44.0) % Monocytes % 7.9 (0.0-12.0) % Eosinophils % 7.0 H (0.00-5.0) % Basophils % 0.2 (0.0-0.4) % Absolute Granulocytes 3.51 (1.4-6.9) Basophils # 0.01 (0-0.4) Sodium (137-145) mmol/L Potassium (3.5-5.1) mmol/L Chloride (98-107) mmol/L Carbon Dioxide (22-30) mmol/L Anion Gap (5-15) MEQ/L BUN (7-17) mg/dL Creatinine (0.52-1.04) mg/dL Estimated GFR ML/MIN Glucose (74-106) mg/dL Calcium (8.4-10.2) mg/dL Total Bilirubin (0.2-1.3) mg/dL AST (14-36) U/L ALT (0-35) U/L Alkaline Phosphatase (38-126) U/L Creatine Kinase (30-135) U/L Troponin I (0.000-0.034) ng/mL NT-Pro-B Natriuret Pep (0-450) pg/mL Serum Total Protein (6.3-8.2) g/dL Albumin (3.5-5.0) g/dL - Progress Progress: improved Counseled pt/family regarding: lab results, diagnosis, rad results - Departure Time of Disposition: 01:27 Departure Disposition: Home Clinical Impression: Non-cardiac chest pain Condition: Stable Critical Care Time: No Referrals: ERICA BROCK [Primary Care Provider] -
[2017-09-24] MEDS ORDERED: Nitrostat 0.4 MG (ED) SL PRN (21:18)
[2017-09-24 21:58] LABS: BASOPHIL % 0.2 % (0.0-0.4); Basophil (Absolute #) 0.01 (0-0.4); Eosinophil (Absolute #) 0.43 (0-0.5); Granulocyte Absolute (ANC) 3.51 (1.4-6.9); Granulocytes % 57.4 % (36.0-66.0); Hematocrit 38.4 % (35-47); Hemoglobin 12.2 gm/dl (12.0-16.0); Lymphocyte (Absolute #) 1.68 (1.0-4.6); Lymphocytes % 27.5 % (24.0-44.0); Mean Cell Volume 88.3 fl (78-100); Mean Corpuscular Hgb Concent. 31.8 g/dl (32-36); Mean Platelet Volume 10.6 fl (6-9.5); Monocyte (Absolute #) 0.48 (0.0-1.3); Monocytes % 7.9 % (0.0-12.0); Platelet Count 185 K/mm3 (150-450); Red Blood Count 4.35 M/mm3 (4.1-5.4); Red Cell Distribution Width 14.2 % (11.5-14.0); White Blood Count 6.1 K/mm3 (4.0-10.5)
[2017-09-24 22:12] LABS: ALBUMIN 4.4 g/dL (3.5-5.0); ALKALINE PHOSPHATASE 114 U/L (38-126); ANION GAP 12.8 MEQ/L (5-15); BLOOD UREA NITROGEN 9 mg/dL (7-17); CHLORIDE 103 mmol/L (98-107); CK-Creatinine Phosphokinase 49 U/L (30-135); Calcium 9.5 mg/dL (8.4-10.2); Carbon Dioxide 32 mmol/L (22-30); Creatinine 1 0.83 mg/dL (0.52-1.04); Glucose 90 mg/dL (74-106); SGOT/AST 20 U/L (14-36); SGPT/ALT 13 U/L (0-35); SODIUM 144 mmol/L (137-145); Total Protein 7.6 g/dL (6.3-8.2)
[2017-09-24 22:21] LABS: NT PRO BNP 70.7 pg/mL (0-450)
[2017-09-25 01:57] VITALS: BP 101/60; PULSE 69; O2SAT 97
--- NOTE | 2017-09-25 09:05 | XRAY ---
Indication: Chest pain and short of breath. Comparison: September 10, 2007. PA/lateral chest slightly underinflated with stable bibasilar infiltrates/atelectasis, right hemidiaphragm elevation, and Port-A-Cath coiled over the right lower lung. Remaining heart, lungs, and bony thorax unremarkable.
== END 2017-09-25 01:56 | disposition home or self-care (01) ==
LOC: ED 20:26
DX: R07.89 Other chest pain (principal); Z99.81 Dependence on supplemental oxygen; J98.4 Other disorders of lung; Z79.899 Other long term (current) drug therapy; Z79.01 Long term (current) use of anticoagulants; I10 Essential (primary) hypertension
CPT/HCPCS: 36000; 36415; 71046; 80053; 82550; 83880; 84484; 85025; 93005; 93041; 99284

== ENCOUNTER 2017-11-21 01:11 | Emergency (ER) | payer OTHER ==
[2017-11-21] MEDS ORDERED: Zofran 4 MG/2 ML VIAL IV ONE (01:28)
[2017-11-21] MEDS ORDERED: MORPHINE SULFATE 4 MG INJ IV ONE ×2 (01:28→03:13)
[2017-11-21] MEDS ORDERED: Sodium Chloride 0.9% 1000 ML 1,000 ML IV STA ×2 (01:28→03:15)
--- NOTE | 2017-11-21 01:36 | ERPHSYRPT ---
- History of Present Illness Time Seen by Provider: 11/21/17 01:22 Historian: patient Exam Limitations: no limitations Physician History: Pt states, she started vomiting 5 days ago, developed diarrhea and diffuse abdominal pain. She denies fever, chills, bloody or black stools or vomiting blood, no urinary complaints. She had multiple abdominal surgeries, cholecystectomy and hysterectomy. Timing/Duration: day(s) (5) Activities at Onset: none Quality: cramping, sharpness Abdominal Pain Onset Location: generalized abdomen Pain Radiation: no radiation Severity of Pain-Max: severe Severity of Pain-Current: severe Modifying Factors: Improves With: nothing Associated Symptoms: diarrhea, loss of appetite, nausea, vomiting Previous symptoms: same symptoms as today Allergies/Adverse Reactions: aspirin Allergy (Mild, Verified 11/21/17 01:42) Nausea and Vomiting codeine [Codeine] Allergy (Mild, Verified 11/21/17 01:42) Itching fluoxetine HCl [From Prozac] Allergy (Mild, Verified 11/21/17 01:42) confusion , "jumped out of a moving truck" Penicillins Allergy (Mild, Verified 11/21/17 01:42) Nausea and Vomiting promethazine HCl [From Phenergan] Allergy (Mild, Verified 11/21/17 01:42) tremors doxycycline hyclate [From Vibra-Tabs] Adverse Reaction (Verified 11/21/17 01:42) steroid from breathing treatment Allergy (Mild, Uncoded 11/21/17 01:42) Blisters Home Medications: Diltiazem HCl [Cartia Xt] 180 mg PO QPM 09/27/14 [History] Levothyroxine Sodium 100 Mcg [Synthroid 100 Mcg] 100 mcg PO QAM 09/27/14 [ History] Simvastatin [Zocor] 20 mg PO HS 09/27/14 [History] Clopidogrel Bisulfate 75 mg [PLAVIX 75 MG Tablet] 75 mg PO DAILY 04/05/15 [History] Cyclobenzaprine HCl 10 mg [Cyclobenzaprine 10 MG] 10 mg PO DAILY 07/16/15 [History] Lamotrigine 100 mg [lamICTAL 100MG TABLET] 200 mg PO BID 09/27/15 [History ] Diazepam 5 mg [Valium 5 MG] 5 mg PO TIDPRN 02/14/16 [History] Omeprazole 20 MG [Prilosec 20 mg] 20 mg PO DAILY 04/20/16 [History] Trazodone HCl [Oleptro ER] 150 mg PO HS 04/20/16 [History] Dulaglutide [Trulicity] 0.75 mg SQ WEEKLY 10/09/16 [History] Albuterol Sulfate [Ventolin Hfa] 8 gm IH Q4HPRN PRN 12/21/16 [History] Sertraline HCl 50 mg [Zoloft 50 mg Tablet] 50 mg PO DAILY 12/21/16 [History] Estradiol 0.5 mg PO DAILY 07/30/17 [History] Loratadine 10 mg [Claritin 10 mg] 10 mg PO DAILY 07/30/17 [History] Potassium Chloride [K-Dur] 20 meq PO DAILY 08/03/17 [History] Gabapentin 800 mg PO QID 09/10/17 [History] Magnesium Oxide 400 mg PO DAILY 09/10/17 [History] Naproxen 500 mg [Naprosyn 500 MG] 500 mg PO [id number] PRN 09/10/17 [History] Oxycodone / APAP 10/325 mg [Oxycodone-Acetaminophen 10-325] 1 tab PO Q4- 6HPRN PRN 09/10/17 [History] Propranolol HCl 80 mg PO DAILY 09/10/17 [History] Hx Tetanus, Diphtheria Vaccination/Date Given: Yes Hx Influenza Vaccination/Date Given: Yes Hx Pneumococcal Vaccination/Date Given: No - Review of Systems Constitutional: No Symptoms Abdominal/Gastrointestinal: Abdominal Pain, Nausea, Vomiting, Diarrhea All Other Systems: Reviewed and Negative - Past Medical History Pertinent Past Medical History: Yes Neurological History: Epilepsy, Seizures, Stroke ENT History: No Pertinent History Cardiac History: Arrhythmia, Congestive Heart Failure, Deep Vein Thrombosis, Hypertension Respiratory History: Pulmonary Embolism, Other Endocrine Medical History: Diabetes Type I, Hypothyroidism Musculoskeletal History: Other GI Medical History: GERD, Hernia History: No Pertinent History Psycho-Social History: Anxiety, Bipolar, Depression, Panic Disorder Female Reproductive Disorders: Endometriosis Other Medical History: Mitral valve prolapse with regurgitation - Past Surgical History Past Surgical History: Yes Neuro Surgical History: No Pertinent History Cardiac: Cardiac Catheterization Respiratory: No Pertinent History Gastrointestinal: Cholecystectomy, Hernia Repair Genitourinary: No Pertinent History Musculoskeletal: Joint Replacement, Orthopedic Surgery Female Surgical History: Hysterectomy, Dilation & Curettage Other Surgical History: torn miniscus and implant-RT KNEE" partial scope replacement" - Social History Smoking Status: Current every day smoker How long have you smoked: 15 years Exposure to second hand smoke: No Alcohol Use: None Drug Use: none Patient Lives Alone: No Significant Family History: no pertinent family hx, heart disease, diabetes, hypertension - Female History Hx Now: No - Nursing Vital Signs Nursing Vital Signs: Initial Vital Signs Respiratory Rate 11/21/17 01:22 Pain Scale Pain Intensity 6 - Physical Exam General Appearance: no apparent distress Eye Exam: eyes nml inspection Ears, Nose, Throat Exam: normal ENT inspection, moist mucous membranes Neck Exam: normal inspection, non-tender, supple Respiratory Exam: normal breath sounds, lungs clear, airway intact, No chest tenderness, No respiratory distress Cardiovascular Exam: regular rate/rhythm, normal heart sounds, normal peripheral pulses, No murmur Gastrointestinal/Abdomen Exam: soft, normal bowel sounds, tenderness (diffuse, mild), No distention, No mass, No guarding, No rebound, No hernia Pelvic Exam: not done Back Exam: normal inspection, No CVA tenderness Extremity Exam: normal inspection Neurologic Exam: alert, oriented x 3, normal mood/affect Skin Exam: normal color, warm, dry, No rash Lymphatic Exam: No adenopathy SpO2 Interpretation: normal Oxygen Delivery: Room Air - Course Nursing assessment & vital signs reviewed: Yes EKG Interpreted by Me: RATE (60/min), NORMAL AXIS, NORMAL INTERVALS, NORMAL ST-T - CT Exams Abdomen/Pelvis CT Interpretation: Negative, Tele-radiologist Report Ordered Tests: Active Orders 24 hr Category Date Time Status EKG-ER Only STAT Care 11/21/17 01:28 Active IV Insertion STAT Care 11/21/17 01:28 Active NPO (ED) STAT Care 11/21/17 01:28 Active ABDOMEN AND PELVIS W/0 CONTRAS [CT] Stat Exams 11/21/17 01:28 Taken AMYLASE Stat Lab 11/21/17 01:39 Completed CBC W DIFF Stat Lab 11/21/17 01:39 Completed CMP Stat Lab 11/21/17 01:39 Completed CULTURE,URINE Stat Lab 11/21/17 03:38 Received LIPASE Stat Lab 11/21/17 01:39 Completed Lactic Acid Stat Lab 11/21/17 01:40 Completed TROPONIN Q3H Lab 11/21/17 01:39 Completed TROPONIN Q3H Lab 11/21/17 04:30 Ordered TROPONIN Q3H Lab 11/21/17 07:30 Ordered TROPONIN Q3H Lab 11/21/17 10:30 Ordered TROPONIN Q3H Lab 11/21/17 13:30 Ordered UA W/ MICROSCOPIC Stat Lab 11/21/17 03:38 Completed Urine Triage Profile Stat Lab 11/21/17 03:38 Completed Medication Summary Generic Name Dose Route Start Last Admin Trade Name Freq PRN Reason Stop Dose Admin Sodium Chloride 1,000 mls @ 999 mls/hr 11/21/17 03:15 11/21/17 03:17 Sodium Chloride 0.9% 1000 Ml IV 11/21/17 04:15 999 mls/hr .Q1H1M STA Administration Discontinued Medications Generic Name Dose Route Start Last Admin Trade Name Freq PRN Reason Stop Dose Admin Sodium Chloride 1,000 mls @ 999 mls/hr 11/21/17 01:28 11/21/17 01:58 Sodium Chloride 0.9% 1000 Ml IV 11/21/17 02:28 999 mls/hr .Q1H1M STA Administration Sodium Chloride Confirm 11/21/17 01:56 Sodium Chloride 0.9% 1000 Ml Administered 11/21/17 01:57 Dose 1,000 mls @ ud .ROUTE .STK-MED ONE Sodium Chloride Confirm 11/21/17 03:02 Sodium Chloride 0.9% 1000 Ml Administered 11/21/17 03:03 Dose 1,000 mls @ ud .ROUTE .STK-MED ONE Morphine Sulfate 4 mg 11/21/17 01:28 11/21/17 01:59 Morphine Sulfate 4 Mg Inj IV 11/21/17 01:29 4 mg STAT ONE Administration Morphine Sulfate Confirm 11/21/17 01:56 Morphine Sulfate 4 Mg Inj Administered 11/21/17 01:57 Dose 4 mg .ROUTE .STK-MED ONE Morphine Sulfate 4 mg 11/21/17 03:13 11/21/17 03:17 Morphine Sulfate 4 Mg Inj IV 11/21/17 03:14 4 mg STAT ONE Administration Morphine Sulfate Confirm 11/21/17 03:16 Morphine Sulfate 4 Mg Inj Administered 11/21/17 03:17 Dose 4 mg .ROUTE .STK-MED ONE Ondansetron HCl 4 mg 11/21/17 01:28 11/21/17 02:00 Zofran 4 Mg/2 Ml Vial IV 11/21/17 01:29 4 mg STAT ONE Administration Ondansetron HCl Confirm 11/21/17 01:55 Zofran 4 Mg/2 Ml Vial Administered 11/21/17 01:56 Dose 4 mg .ROUTE .STK-MED ONE Lab/Rad Data: Laboratory Result Diagrams 11/21/17 01:39 11/21/17 01:39 Laboratory Results 11/21/17 11/21/17 11/21/17 Range/Units 03:38 03:38 01:40 WBC (4.0-10.5) K/mm3 RBC (4.1-5.4) M/mm3 Hgb (12.0-16.0) gm/dl Hct (35-47) % MCV (78-100) fl MCH (26-32) pg MCHC (32-36) g/dl RDW (11.5-14.0) % Plt Count (150-450) K/mm3 MPV (6-9.5) fl Gran % (36.0-66.0) % Eos # (Auto) (0-0.5) Absolute Lymphs (auto) (1.0-4.6) Absolute Monos (auto) (0.0-1.3) Lymphocytes % (24.0-44.0) % Monocytes % (0.0-12.0) % Eosinophils % (0.00-5.0) % Basophils % (0.0-0.4) % Absolute Granulocytes (1.4-6.9) Basophils # (0-0.4) Sodium (137-145) mmol/L Potassium (3.5-5.1) mmol/L Chloride (98-107) mmol/L Carbon Dioxide (22-30) mmol/L Anion Gap (5-15) MEQ/L BUN (7-17) mg/dL Creatinine (0.52-1.04) mg/dL Estimated GFR ML/MIN Glucose (74-106) mg/dL Lactic Acid 0.8 (0.4-2.0) Calcium (8.4-10.2) mg/dL Total Bilirubin (0.2-1.3) mg/dL AST (14-36) U/L ALT (0-35) U/L Alkaline Phosphatase (38-126) U/L Troponin I (0.000-0.034) ng/mL Serum Total Protein (6.3-8.2) g/dL Albumin (3.5-5.0) g/dL Amylase (30-110) U/L Lipase (23-300) U/L Ur Collection Type VOID Urine Color YELLOW (YELLOW) Urine Appearance CLOUDY (CLEAR) Urine pH 8.0 (5-6) Ur Specific [place] 1.010 (1.005-1.025) Urine Protein NEGATIVE (Negative) Urine Ketones NEGATIVE (NEGATIVE) Urine Blood NEGATIVE (0-5) Laurent/ul Urine Nitrite NEGATIVE (NEGATIVE) Urine Bilirubin NEGATIVE (NEGATIVE) Urine Urobilinogen NORMAL (0-1) mg/dL Ur Leukocyte Esterase 2+ (NEGATIVE) Urine Microscopic RBC 2-5 (0-2) /HPF Urine Microscopic WBC 2-5 (0-5) /HPF Ur Epithelial Cells MODERATE (FEW) /HPF Amorphous Crystals MANY (NEGATIVE) /HPF Urine Bacteria MODERATE (NEGATIVE) /HPF Urine Mucus MODERATE (NEGATIVE) /HPF Urine Culture Reflexed YES (NO) Urine Glucose NEGATIVE (NEGATIVE) mg/dL Urine Opiates Level POSITIVE (NEGATIVE) Ur Methadone NEGATIVE (NEGATIVE) Urine Barbiturates NEGATIVE (NEGATIVE) Ur Phencyclidine (PCP) NEGATIVE (NEGATIVE) Urine Amphetamine NEGATIVE (NEGATIVE) U Benzodiazepine Level NEGATIVE (NEGATIVE) Urine Cocaine NEGATIVE (NEGATIVE) Urine Marijuana (THC) NEGATIVE (NEGATIVE) Specimen Received 11/21/17 0340 11/21/17 11/21/17 11/21/17 Range/Units 01:39 01:39 01:39 WBC 7.1 (4.0-10.5) K/mm3 RBC 4.80 (4.1-5.4) M/mm3 Hgb 13.7 (12.0-16.0) gm/dl Hct 40.6 (35-47) % MCV 84.6 (78-100) fl MCH 28.5 (26-32) pg MCHC 33.7 (32-36) g/dl RDW 13.7 (11.5-14.0) % Plt Count 207 (150-450) K/mm3 MPV 10.7 H (6-9.5) fl Gran % 54.9 (36.0-66.0) % Eos # (Auto) 0.49 (0-0.5) Absolute Lymphs (auto) 2.09 (1.0-4.6) Absolute Monos (auto) 0.61 (0.0-1.3) Lymphocytes % 29.3 (24.0-44.0) % Monocytes % 8.6 (0.0-12.0) % Eosinophils % 6.9 H (0.00-5.0) % Basophils % 0.3 (0.0-0.4) % Absolute Granulocytes 3.92 (1.4-6.9) Basophils # 0.02 (0-0.4) Sodium 144 (137-145) mmol/L Potassium 3.5 (3.5-5.1) mmol/L Chloride 106 (98-107) mmol/L Carbon Dioxide 28 (22-30) mmol/L Anion Gap 13.9 (5-15) MEQ/L BUN 9 (7-17) mg/dL Creatinine 0.63 (0.52-1.04) mg/dL Estimated GFR > 60.0 ML/MIN Glucose 102 (74-106) mg/dL Lactic Acid (0.4-2.0) Calcium 9.9 (8.4-10.2) mg/dL Total Bilirubin 0.40 (0.2-1.3) mg/dL AST 23 (14-36) U/L ALT 21 (0-35) U/L Alkaline Phosphatase 137 H (38-126) U/L Troponin I < 0.012 (0.000-0.034) ng/mL Serum Total Protein 8.3 H (6.3-8.2) g/dL Albumin 4.9 (3.5-5.0) g/dL Amylase 40 (30-110) U/L Lipase 79 (23-300) U/L Ur Collection Type Urine Color (YELLOW) Urine Appearance (CLEAR) Urine pH (5-6) Ur Specific [place] (1.005-1.025) Urine Protein (Negative) Urine Ketones (NEGATIVE) Urine Blood (0-5) Laurent/ul Urine Nitrite (NEGATIVE) Urine Bilirubin (NEGATIVE) Urine Urobilinogen (0-1) mg/dL Ur Leukocyte Esterase (NEGATIVE) Urine Microscopic RBC (0-2) /HPF Urine Microscopic WBC (0-5) /HPF Ur Epithelial Cells (FEW) /HPF Amorphous Crystals (NEGATIVE) /HPF Urine Bacteria (NEGATIVE) /HPF Urine Mucus (NEGATIVE) /HPF Urine Culture Reflexed (NO) Urine Glucose (NEGATIVE) mg/dL Urine Opiates Level (NEGATIVE) Ur Methadone (NEGATIVE) Urine Barbiturates (NEGATIVE) Ur Phencyclidine (PCP) (NEGATIVE) Urine Amphetamine (NEGATIVE) U Benzodiazepine Level (NEGATIVE) Urine Cocaine (NEGATIVE) Urine Marijuana (THC) (NEGATIVE) Specimen Received - Progress Progress: improved Progress Note: 11/21/17 04:02 Pt improved after iv Morphine, Zofran and saline, afebrile, no severe pain, did not vomit. I discussed our findings with her and her , she is being discharged in good condition, to follow up with her PCP in 2-3 days, drink plenty of fluids, and return if severe pain, vomiting, or fever> 102 F! Counseled pt/family regarding: lab results, diagnosis, need for follow-up, rad results - Departure Time of Disposition: 04:03 Departure Disposition: Home Clinical Impression: Vomiting Qualifiers: Vomiting type: unspecified Vomiting Intractability: non-intractable Nausea presence: with nausea Qualified Code(s): R11.2 - Nausea with vomiting, unspecified Condition: Stable Critical Care Time: No Referrals: ERICA BROCK [Primary Care Provider] - Instructions: Vomiting -- Adult Additional Instructions: Rest x 2-3 [place], drink plenty of fluids, return if severe pain, vomiting, or fever> 102 F, otherwise follow up with your physician in 2-3 days! Prescriptions: Ondansetron ODT 4 MG [Zofran Odt 4 mg] 4 mg PO Q6H PRN PRN #10 tab.rapdis PRN Reason: Nausea/Vomiting Sulfamethoxazole/Trimethoprim [Bactrim Ds Tablet] 1 each PO BID 7 Days #14 tablet
[2017-11-21 01:42] LABS: BASOPHIL % 0.3 % (0.0-0.4); Basophil (Absolute #) 0.02 (0-0.4); Eosinophil % 6.9 % (0.00-5.0); Eosinophil (Absolute #) 0.49 (0-0.5); Granulocyte Absolute (ANC) 3.92 (1.4-6.9); Granulocytes % 54.9 % (36.0-66.0); Hematocrit 40.6 % (35-47); Hemoglobin 13.7 gm/dl (12.0-16.0); Lymphocyte (Absolute #) 2.09 (1.0-4.6); Lymphocytes % 29.3 % (24.0-44.0); Mean Cell Volume 84.6 fl (78-100); Mean Corpuscular Hemoglobin 28.5 pg (26-32); Mean Corpuscular Hgb Concent. 33.7 g/dl (32-36); Mean Platelet Volume 10.7 fl (6-9.5); Monocyte (Absolute #) 0.61 (0.0-1.3); Monocytes % 8.6 % (0.0-12.0); Platelet Count 207 K/mm3 (150-450); Red Cell Distribution Width 13.7 % (11.5-14.0); White Blood Count 7.1 K/mm3 (4.0-10.5)
[2017-11-21] MEDS ORDERED: Zofran 4 MG/2 ML VIAL ONE (01:55)
[2017-11-21] MEDS ORDERED: Sodium Chloride 0.9% 1000 ML 1,000 ML ONE ×2 (01:56→03:02)
[2017-11-21] MEDS ORDERED: MORPHINE SULFATE 4 MG INJ ONE ×2 (01:56→03:16)
[2017-11-21 02:12] LABS: ALBUMIN 4.9 g/dL (3.5-5.0); ALKALINE PHOSPHATASE 137 U/L (38-126); AMYLASE 40 U/L (30-110); ANION GAP 13.9 MEQ/L (5-15); BLOOD UREA NITROGEN 9 mg/dL (7-17); CHLORIDE 106 mmol/L (98-107); Calcium 9.9 mg/dL (8.4-10.2); Carbon Dioxide 28 mmol/L (22-30); Creatinine 1 0.63 mg/dL (0.52-1.04); Glucose 102 mg/dL (74-106); LIPASE 79 U/L (23-300); Potassium 3.5 mmol/L (3.5-5.1); SGOT/AST 23 U/L (14-36); SGPT/ALT 21 U/L (0-35); SODIUM 144 mmol/L (137-145); Total Protein 8.3 g/dL (6.3-8.2)
[2017-11-21 03:12] VITALS: BP 128/78; PULSE 54; O2SAT 100
[2017-11-21 03:49] LABS: Appearance CLOUDY (CLEAR)
[2017-11-21 03:50] LABS: Amourphous Crystal MANY /HPF (NEGATIVE); Bacteria MODERATE /HPF (NEGATIVE); Bilirubin NEGATIVE (NEGATIVE); Blood NEGATIVE Ery/ul (0-5); Epithelial Cells MODERATE /HPF (FEW); Glucose NEGATIVE (NEGATIVE); Ketones NEGATIVE (NEGATIVE); Leukocyte Esterase 2+ (NEGATIVE); Mucus MODERATE /HPF (NEGATIVE); Nitrite NEGATIVE (NEGATIVE); Protein,Urine Dip NEGATIVE (Negative); Urobilinogen NORMAL mg/dL (0-1)
[2017-11-21 03:57] LABS: Amphetamine,Urine NEGATIVE (NEGATIVE); Barbiturate,Urine NEGATIVE (NEGATIVE); Benzodiazepine,Urine NEGATIVE (NEGATIVE); Cocaine,Urine NEGATIVE (NEGATIVE); Methadone,Urine NEGATIVE (NEGATIVE); Opiate,Urine POSITIVE (NEGATIVE); PCP,Urine NEGATIVE (NEGATIVE); THC,Urine NEGATIVE (NEGATIVE)
[2017-11-21] MEDS ORDERED: BACTRIM DS TABLET PO STA (04:04)
[2017-11-21] MEDS ORDERED: BACTRIM DS TABLET PO ONE (04:06)
[2017-11-21] MEDS ORDERED: BENADRYL 50 MG/ML IV ONE (04:28)
[2017-11-21] MEDS ORDERED: BENADRYL 50 MG/ML ONE (04:30)
--- NOTE | 2017-11-21 08:52 | XRAY ---
Indication: Abdominal pain. Multiple contiguous axial images obtained through the abdomen and pelvis without contrast as ordered. Comparison: October 12, 2016. Lung bases demonstrates minimal bibasilar fibrosis/scarring. No infiltrate or effusion. Heart is not enlarged. Noncontrasted stomach and bowel loops appear nonobstructed. Normal appendix. Again previous cholecystectomy and hysterectomy. No free fluid/air. Remaining liver, pancreas, spleen, adrenal glands, kidneys, ureters, bladder, and aorta appear unremarkable for noncontrast exam. Osseous structures intact. Stable small fatty umbilical hernia. Impression: 1. Stable fatty umbilical hernia. 2. No new or acute intra-abdominal/pelvic abnormalities on this noncontrast exam. Comment: Preliminary interpretation was made by [facility]. No discrepancy. CT DI 26.19
== END 2017-11-21 04:41 | disposition home or self-care (01) ==
LOC: ED 01:11
DX: R11.2 Nausea with vomiting, unspecified (principal); R19.7 Diarrhea, unspecified; R10.84 Generalized abdominal pain; Z79.899 Other long term (current) drug therapy
CPT/HCPCS: 36000; 36415; 74176; 80053; 80307; 81000; 82150; 83605; 83690; 84484; 85025; 87086; 93005; 96360; 96365; 96368; 96374; 96375; 96376; 99285; J1200; J2270; J2405; A9270-GY

== ENCOUNTER 2017-12-06 15:33 | Emergency (ER) | payer OTHER ==
[2017-12-06] MEDS ORDERED: OXYCODONE-ACETAMINOPHEN 10-325 PO STA (16:01)
[2017-12-06] MEDS ORDERED: OXYCODONE-ACETAMINOPHEN 10-325 ONE (16:08)
--- NOTE | 2017-12-06 16:08 | ERPHSYRPT ---
- History of Present Illness Time Seen by Provider: 12/06/17 15:47 Source: patient Exam Limitations: no limitations Patient Subjective Stated Complaint: Pt states "I was walking from my garage to the house and my right knee buckled sideways and it really hurts." Triage Nursing Assessment: Pt alert and oriented X 3, skin pwd. PT stated she is unable to bear weight on her leg, no swelling, bruising, or deformity noted. Pt has CSM X 4 Method of Injury: twisted Occurred: just prior to arrival Lower Extremities Pain: hip: right, knee: right Modifying Factors: Improves With: nothing Associated Symptoms: other (pain right knee and hip worse with movement and walking) Allergies/Adverse Reactions: aspirin Allergy (Mild, Verified 11/21/17 01:42) Nausea and Vomiting codeine [Codeine] Allergy (Mild, Verified 11/21/17 01:42) Itching fluoxetine HCl [From Prozac] Allergy (Mild, Verified 11/21/17 01:42) confusion , "jumped out of a moving truck" Penicillins Allergy (Mild, Verified 11/21/17 01:42) Nausea and Vomiting promethazine HCl [From Phenergan] Allergy (Mild, Verified 11/21/17 01:42) tremors doxycycline hyclate [From Vibra-Tabs] Adverse Reaction (Verified 11/21/17 01:42) steroid from breathing treatment Allergy (Mild, Uncoded 11/21/17 01:42) Blisters Home Medications: Diltiazem HCl [Cartia Xt] 180 mg PO QPM 09/27/14 [History] Levothyroxine Sodium 100 Mcg [Synthroid 100 Mcg] 100 mcg PO QAM 09/27/14 [ History] Simvastatin [Zocor] 20 mg PO HS 09/27/14 [History] Clopidogrel Bisulfate 75 mg [PLAVIX 75 MG Tablet] 75 mg PO DAILY 04/05/15 [History] Cyclobenzaprine HCl 10 mg [Cyclobenzaprine 10 MG] 10 mg PO DAILY 07/16/15 [History] Lamotrigine 100 mg [lamICTAL 100MG TABLET] 200 mg PO BID 09/27/15 [History ] Diazepam 5 mg [Valium 5 MG] 5 mg PO TIDPRN 09/12/16 [History] Omeprazole 20 MG [Prilosec 20 mg] 20 mg PO DAILY 04/20/16 [History] Trazodone HCl [Oleptro ER] 150 mg PO HS 04/20/16 [History] Dulaglutide [Trulicity] 0.75 mg SQ WEEKLY 10/09/16 [History] Albuterol Sulfate [Ventolin Hfa] 8 gm IH Q4HPRN PRN 12/21/16 [History] Sertraline HCl 50 mg [Zoloft 50 mg Tablet] 50 mg PO DAILY 12/21/16 [History] Estradiol 0.5 mg PO DAILY 07/30/17 [History] Loratadine 10 mg [Claritin 10 mg] 10 mg PO DAILY 07/30/17 [History] Potassium Chloride [K-Dur] 20 meq PO DAILY 08/03/17 [History] Gabapentin 800 mg PO QID 09/10/17 [History] Magnesium Oxide 400 mg PO DAILY 09/10/17 [History] Naproxen 500 mg [Naprosyn 500 MG] 500 mg PO [id number] PRN 09/10/17 [History] Oxycodone / APAP 10/325 mg [Oxycodone-Acetaminophen 10-325] 1 tab PO Q4- 6HPRN PRN 09/10/17 [History] Propranolol HCl 80 mg PO DAILY 09/10/17 [History] Hx Tetanus, Diphtheria Vaccination/Date Given: Yes Hx Influenza Vaccination/Date Given: No Hx Pneumococcal Vaccination/Date Given: No Immunizations Up to Date: Yes - Review of Systems Constitutional: No Fever, No Chills Eyes: No Symptoms Ears, Nose, & Throat: No Symptoms Respiratory: No Cough, No Dyspnea Cardiac: No Chest Pain, No Edema, No Syncope Abdominal/Gastrointestinal: No Abdominal Pain, No Nausea, No Vomiting, No Diarrhea Genitourinary Symptoms: No Dysuria Musculoskeletal: Joint Pain (Right hip and knee pain) Skin: No Rash Neurological: No Dizziness, No Focal Weakness, No Sensory Changes Psychological: No Symptoms Endocrine: No Symptoms All Other Systems: Reviewed and Negative - Past Medical History Pertinent Past Medical History: Yes Neurological History: Epilepsy, Seizures, Stroke ENT History: No Pertinent History Cardiac History: Arrhythmia, Congestive Heart Failure, Deep Vein Thrombosis, Hypertension Respiratory History: Pulmonary Embolism, Other Endocrine Medical History: Diabetes Type I, Hypothyroidism Musculoskeletal History: Other GI Medical History: GERD, Hernia History: No Pertinent History Psycho-Social History: Anxiety, Bipolar, Depression, Panic Disorder Female Reproductive Disorders: Endometriosis Other Medical History: Mitral valve prolapse with regurgitation - Past Surgical History Past Surgical History: Yes Neuro Surgical History: No Pertinent History Cardiac: Cardiac Catheterization Respiratory: No Pertinent History Gastrointestinal: Cholecystectomy, Hernia Repair Genitourinary: No Pertinent History Musculoskeletal: Joint Replacement, Orthopedic Surgery Female Surgical History: Hysterectomy, Dilation & Curettage Other Surgical History: torn miniscus and implant-RT KNEE" partial scope replacement" - Social History Smoking Status: Former smoker How long have you smoked: 15 years Exposure to second hand smoke: Yes Alcohol Use: None Drug Use: none Patient Lives Alone: No Significant Family History: no pertinent family hx, heart disease, diabetes, hypertension - Female History Hx Last Menstrual Period: hysterectomy Hx Now: No - Nursing Vital Signs Nursing Vital Signs: Initial Vital Signs Temperature 98.2 F 12/06/17 15:40 Pulse Rate 88 12/06/17 15:40 Respiratory Rate 20 12/06/17 15:40 Blood Pressure 140/80 12/06/17 15:40 O2 Sat by Pulse Oximetry 100 12/06/17 15:40 Pain Scale Pain Intensity 10 - Physical Exam General Appearance: mild distress Eyes, Ears, Nose, Throat Exam: moist mucous membranes Neck Exam: non-tender, supple Cardiovascular/Respiratory Exam: chest non-tender, normal breath sounds, regular rate/rhythm, no respiratory distress Gastrointestinal/Abdominal Exam: non-tender, guarding Back Exam: normal inspection, No vertebral tenderness Hips Exam: right: other (decreased range of motion right hip and knee secondary to pain. Patient complains of pain whereever her right lower extremity is palpated. Right dorsal pedal postterior tibial pulses equal 2/4, good capillary refill alltoes sensation intact to all toes), left: non-tender, normal inspection, normal range of motion, no evidence of injury Legs Exam: right leg: other (patient complains of pain wherever her right lower extremity is palpated), left leg: non-tender, normal inspection, normal range of motion, no evidence of injury Knees Exam: right knee: other (decreased range of motion right knee right hip secondary to pain patient complains of pain whereever her right lower extremity is palpated), left knee: non-tender, normal inspection, normal range of motion, no evidence of injury Ankle Exam: bilateral ankle: non-tender, normal inspection, normal range of motion, no evidence of injury Foot Exam: bilateral foot: non-tender, normal inspection, normal range of motion , no evidence of injury Neuro/Tendon Exam: normal sensation, normal motor functions Mental Status Exam: alert Skin Exam: normal color, warm, dry SpO2 Interpretation: normal (100%) SpO2: 100 Oxygen Delivery: Room Air - Course Nursing assessment & vital signs reviewed: Yes - Radiology Exams Right Knee X-ray Interpretation: Discussed w/ radiologist (x-ray right knee: Minimal medial joint space narrowing/spurring. Small nonspecific suprapatellar effusion , and a posterior fabella. No new/acute findings.) Right Femur X-ray Interpretation: Discussed w/ radiologist (X-ray right femur: Minimal knee degenerative changes and small nonspecific suprapatellar effusion. No other bony, articular or soft tissue abnormalies.) Right Ankle X-ray Interpretation: Discussed w/ radiologist (X-ray right ankle: No bony, articular, or soft tissue abnormalities) Ordered Tests: Active Orders 24 hr Category Date Time Status [facility] Band[facility] 12/06/17 16:53 Active Immobilizer STAT Care 12/06/17 16:53 Active ANKLE (3 VIEWS) Stat Exams 12/06/17 16:36 Completed FEMUR Stat Exams 12/06/17 16:00 Completed KNEE (3 VIEWS) Stat Exams 12/06/17 16:00 Completed Medication Summary Discontinued Medications Generic Name Dose Route Start Last Admin Trade Name Freq PRN Reason Stop Dose Admin Oxycodone/Acetaminophen 1 tab 12/06/17 16:01 12/06/17 16:09 Oxycodone-Acetaminophen 10-325 PO 12/06/17 16:02 1 tab STAT STA Administration Oxycodone/Acetaminophen Confirm 12/06/17 16:08 Oxycodone-Acetaminophen 10-325 Administered 12/06/17 16:09 Dose 1 tab .ROUTE .STK-MED ONE - Progress Progress: improved Progress Note: 12/06/17 16:08 This is a 41-year-old white female who arrives with complaint of pain in her right knee right hip she states that her right knee buckled medially while she was walking to the garage prior to arrival. On arrival patient complains of any pain with palpating any part of her right lower extremity. She states she is having most pain in the right knee but also has pain in the right hip. Patient does not move her right knee or right hip secondary to pain but is able to use the bedside commode. Patient with good capillary refill to right toes right dorsal pedal posterior tibial pulses are intact. Patient does have a history of chronic pain she is on Percocet 10/325 one orally 4 times a day she states she did not take one before coming into the emergency room. I will go ahead and give patient her Percocet tablet a go ahead and obtain an x- ray of her right knee and right hip. I do not see any new bruising she does have mild edema to the right knee there are some old brown bruises on the right leg. 12/06/17 16:37 Patient back from x-ray normal x-ray right hip normal x-ray right knee. Now states that her right ankle hurts. Will go ahead and get an x-ray of her right ankle. I plan on placing the patient with a right knee immobilizer and Thong wrap. Patient is offered crutches she states she has a walker and wheelchair at home. - Departure Time of Disposition: 17:45 Departure Disposition: Home Clinical Impression: Right hip pain Right knee pain Qualifiers: Chronicity: acute Qualified Code(s): M25.561 - Pain in right knee Right ankle pain Qualifiers: Chronicity: acute Qualified Code(s): M25.571 - Pain in right ankle and joints of right foot Strain of right knee Qualifiers: Encounter type: initial encounter Qualified Code(s): S86.911A - Strain of unspecified muscle(s) and tendon(s) at lower leg level, right leg, initial encounter Chronic pain Qualifiers: Chronic pain type: chronic pain syndrome Qualified Code(s): G89.4 - Chronic pain syndrome Condition: Fair Critical Care Time: No Referrals: ERICA BROCK [Primary Care Provider] - Instructions: Knee Sprain (DC), Knee Pain (DC) Additional Instructions: Return home. Ice to your right knee right ankle right hip 24-48 hours. Continue Percocet as prescribed by your pain motor and controls tester. Use your walker as needed weightbearing as tolerated right lower extremity. Follow-up with your family doctor. Return for acute distress or for severe symptoms.
--- NOTE | 2017-12-06 16:40 | XRAY ---
Indication: Pain. "Knee gave out." Comparison: June 13, 2016. 3 views of the right knee again demonstrates minimal medial joint space narrowing/spurring, small nonspecific suprapatellar effusion, and a posterior fabella. No new/acute findings.
--- NOTE | 2017-12-06 16:42 | XRAY ---
Indication: Pain. "Knee gave out." Comparison: None. 2 views of the right femur demonstrates minimal knee degenerative changes and small nonspecific suprapatellar effusion. No other bony, articular, or soft tissue abnormalities.
--- NOTE | 2017-12-06 16:58 | XRAY ---
Indication: Pain. "Knee gave out." Comparison: None. 3 views of the right ankle obtained. No bony, articular, or soft tissue abnormalities.
[2017-12-06 17:43] VITALS: BP 112/80; PULSE 80
[2017-12-06 17:54] VITALS: O2SAT 100
== END 2017-12-06 17:43 | disposition home or self-care (01) ==
LOC: ED 15:33
DX: M25.561 Pain in right knee (principal); M25.551 Pain in right hip; S86.911A Strain of unspecified muscle(s) and tendon(s) at lower leg level, right leg, initial encounter; M25.571 Pain in right ankle and joints of right foot; G89.4 Chronic pain syndrome; X50.1XXA Overexertion from prolonged static or awkward postures, initial encounter; Y92.008 Other place in unspecified non-institutional (private) residence as the place of occurrence of the external cause; Z79.01 Long term (current) use of anticoagulants; Z79.899 Other long term (current) drug therapy
CPT/HCPCS: 73552; 73562; 73610; 99284; L1830; A9270-GY

== ENCOUNTER 2018-01-05 20:07 | Emergency (ER) | payer OTHER ==
[2018-01-05 20:30] VITALS: BP 145/92; PULSE 92
--- NOTE | 2018-01-05 20:45 | ERPHSYRPT ---
- History of Present Illness Time Seen by Provider: 01/05/18 20:40 Source: patient Exam Limitations: no limitations Patient Subjective Stated Complaint: reports noticing a small spot insect bite below right knee. when woke up area was red, hot to touch, and tender. Triage Nursing Assessment: amb to treatment area without diff. no drng noted. lower right knee swollen, redness, tender to touch, no drng noted. Physician History: patient with possible insect bite to area below knee. Patient noticed skin redness and discomfort for 2 days. States area increasing in redness and irritation. Patient also noted that she has had some fever and chills, but did not know temperature. Patient's taken minimal meds for discomfort. Able to move right knee without any difficulties Timing/Duration: yesterday Quality: burning Severity: mild Location: other (below right knee) Possible Causes: insect bite Modifying Factors: Improves With: scratching (worsen) Associated Symptoms: change in skin texture, fever, No hives, No petechiae Allergies/Adverse Reactions: aspirin Allergy (Mild, Verified 11/21/17 01:42) Nausea and Vomiting codeine [Codeine] Allergy (Mild, Verified 11/21/17 01:42) Itching fluoxetine HCl [From Prozac] Allergy (Mild, Verified 11/21/17 01:42) confusion , "jumped out of a moving truck" Penicillins Allergy (Mild, Verified 11/21/17 01:42) Nausea and Vomiting promethazine HCl [From Phenergan] Allergy (Mild, Verified 11/21/17 01:42) tremors doxycycline hyclate [From Vibra-Tabs] Adverse Reaction (Verified 11/21/17 01:42) steroid from breathing treatment Allergy (Mild, Uncoded 11/21/17 01:42) Blisters Home Medications: Diltiazem HCl [Cartia Xt] 180 mg PO QPM 09/27/14 [History] Levothyroxine Sodium 100 Mcg [Synthroid 100 Mcg] 100 mcg PO QAM 09/27/14 [ History] Simvastatin [Zocor] 20 mg PO HS 09/27/14 [History] Clopidogrel Bisulfate 75 mg [PLAVIX 75 MG Tablet] 75 mg PO DAILY 04/05/15 [History] Cyclobenzaprine HCl 10 mg [Cyclobenzaprine 10 MG] 10 mg PO DAILY 07/16/15 [History] Lamotrigine 100 mg [lamICTAL 100MG TABLET] 200 mg PO BID 09/27/15 [History ] Diazepam 5 mg [Valium 5 MG] 5 mg PO TIDPRN 02/14/16 [History] Omeprazole 20 MG [Prilosec 20 mg] 20 mg PO DAILY 04/20/16 [History] Trazodone HCl [Oleptro ER] 150 mg PO HS 04/20/16 [History] Albuterol Sulfate [Ventolin Hfa] 8 gm IH Q4HPRN PRN 12/21/16 [History] Sertraline HCl 50 mg [Zoloft 50 mg Tablet] 50 mg PO DAILY 12/21/16 [History] Estradiol 0.5 mg PO DAILY 07/30/17 [History] Loratadine 10 mg [Claritin 10 mg] 10 mg PO DAILY 07/30/17 [History] Potassium Chloride [K-Dur] 20 meq PO DAILY 08/03/17 [History] Gabapentin 800 mg PO QID 09/10/17 [History] Magnesium Oxide 400 mg PO DAILY 09/10/17 [History] Naproxen 500 mg [Naprosyn 500 MG] 500 mg PO [id number] PRN 09/10/17 [History] Oxycodone / APAP 10/325 mg [Oxycodone-Acetaminophen 10-325] 1 tab PO Q4- 6HPRN PRN 09/10/17 [History] Liraglutide [Victoza 2-Jacob] 1.2 mg SQ DAILY 01/05/18 [History] Hx Tetanus, Diphtheria Vaccination/Date Given: Yes Hx Influenza Vaccination/Date Given: No Hx Pneumococcal Vaccination/Date Given: No Immunizations Up to Date: Yes - Review of Systems Constitutional: Fever, Chills Eyes: No Symptoms Ears, Nose, & Throat: No Symptoms Respiratory: No Symptoms, No Cough, No Dyspnea Cardiac: No Symptoms, No Chest Pain, No Edema, No Syncope Abdominal/Gastrointestinal: No Symptoms, No Abdominal Pain, No Nausea, No Vomiting, No Diarrhea Genitourinary Symptoms: No Symptoms, No Dysuria Musculoskeletal: No Symptoms, No Back Pain, No Neck Pain Skin: Cellulitis (below right knee), No Rash Neurological: No Dizziness, No Focal Weakness, No Sensory Changes Psychological: No Symptoms Endocrine: No Symptoms Hematologic/Lymphatic: No Symptoms Immunological/Allergic: No Symptoms All Other Systems: Reviewed and Negative - Past Medical History Pertinent Past Medical History: Yes Neurological History: Epilepsy, Seizures, Stroke ENT History: No Pertinent History Cardiac History: Arrhythmia, Congestive Heart Failure, Deep Vein Thrombosis, Hypertension Respiratory History: Pulmonary Embolism, Other Endocrine Medical History: Diabetes Type I, Hypothyroidism Musculoskeletal History: Other GI Medical History: GERD, Hernia History: No Pertinent History Psycho-Social History: Anxiety, Bipolar, Depression, Panic Disorder Female Reproductive Disorders: Endometriosis Other Medical History: Mitral valve prolapse with regurgitation - Past Surgical History Past Surgical History: Yes Neuro Surgical History: No Pertinent History Cardiac: Cardiac Catheterization Respiratory: No Pertinent History Gastrointestinal: Cholecystectomy, Hernia Repair Genitourinary: No Pertinent History Musculoskeletal: Joint Replacement, Orthopedic Surgery Female Surgical History: Hysterectomy, Dilation & Curettage Other Surgical History: torn miniscus and implant-RT KNEE" partial scope replacement" - Social History Smoking Status: Former smoker How long have you smoked: 15 years Exposure to second hand smoke: Yes Alcohol Use: None Drug Use: none Patient Lives Alone: No Significant Family History: no pertinent family hx, heart disease, diabetes, hypertension - Female History Hx Now: No - Nursing Vital Signs Nursing Vital Signs: Initial Vital Signs Temperature 99.5 F 01/05/18 20:07 Pulse Rate 92 H 01/05/18 20:07 Respiratory Rate 18 01/05/18 20:07 Blood Pressure 145/92 01/05/18 20:07 Pain Scale Pain Intensity 10 - Physical Exam General Appearance: no apparent distress, alert Eye Exam: PERRL/EOMI, eyes nml inspection Ears, Nose, Throat Exam: normal ENT inspection, pharynx normal, moist mucous membranes Neck Exam: normal inspection, non-tender, supple, full range of motion Respiratory Exam: normal breath sounds, lungs clear, No respiratory distress Cardiovascular Exam: regular rate/rhythm, normal heart sounds Gastrointestinal/Abdomen Exam: soft, mass, No tenderness Back Exam: normal inspection, normal range of motion, No CVA tenderness, No vertebral tenderness Extremity Exam: normal inspection, normal range of motion Neurologic Exam: alert, oriented x 3, cooperative, normal mood/affect, sensation nml, No motor deficits Skin Exam: warm, dry, other (area of skin erythema, mild tenderness to below right knee approximately 1 x 1 cm with some warmness to touch.) Lymphatic Exam: No adenopathy SpO2 Interpretation: normal Oxygen Delivery: Room Air - Course Nursing assessment & vital signs reviewed: Yes - Progress Progress: unchanged Counseled pt/family regarding: diagnosis - Departure Time of Disposition: 20:48 Departure Disposition: Home Clinical Impression: Cellulitis of right knee Condition: Stable Critical Care Time: No Referrals: ERICA BROCK [Primary Care Provider] - Instructions: Wound Infection, Cellulitis (Skin Infection), Adult (DC) Additional Instructions: Rx: Clindamycin. Take Tylenol 1 g every 4 hours for fever/discomfort. Follow-up with your doctor in 2-3 days. Return for worse swelling, redness, pain, fever or any problems Prescriptions: Clindamycin HCl 300 mg PO QID 10 Days #40 capsule
[2018-01-05] MEDS ORDERED: CLEOCIN 150 MG CAPSULE PO ONE (20:53)
[2018-01-05] MEDS ORDERED: CLEOCIN 150 MG CAPSULE ONE (20:56)
== END 2018-01-05 21:11 | disposition home or self-care (01) ==
LOC: ED 20:07
DX: L03.115 Cellulitis of right lower limb (principal); Z79.01 Long term (current) use of anticoagulants; Z79.899 Other long term (current) drug therapy
CPT/HCPCS: 99283; A9270-GY

== ENCOUNTER 2018-01-08 00:22 | Emergency (ER) | payer OTHER ==
[2018-01-08 00:48] VITALS: BP 114/74; PULSE 81; O2SAT 100
[2018-01-08] MEDS ORDERED: Vancomycin 1GM/ Ns 250ML*** 250 ML IV ONE (00:57)
--- NOTE | 2018-01-08 01:02 | ERPHSYRPT ---
- History of Present Illness Time Seen by Provider: 01/08/18 00:57 Source: patient Exam Limitations: no limitations Patient Subjective Stated Complaint: bite on right knee that is infected and oozing, was here on Sunday and they gave her Clindamyacin but it hurt her bleeding ulcer and so she only has taken 2 doses Triage Nursing Assessment: Pt c/o of a possible spider bite on her right knee that she noticed on 01/05/2018 and came to [facility] on 01/06/2018 and they placed her on Clindamyacin and circled the area, the area is now larger, oozing and she stopped her antibiotic due to it hurting her bleeding ulcer, vitals wnl, pulses normal, rates pain 03/13, T 99.6, has been vomiting and having diarhea Physician History: 42-year-old white female who has a history of epilepsy, seizure, stroke, diabetes, hypothyroidism, PE, arrhythmia, congestive heart failure, DVT, hypertension, GERD, hernia, endometriosis, anxiety, bipolar She arrives with complaints of the erythema and area enlarged area on her right knee which has been present since January 05 she states she was seen in this emergency room on 06 January 2018 and placed on clindamycin. She states she only took 2 doses of her clindamycin she states that this is because the clindamycin irritates her ulcers. She believes she had a spider bite on the right knee. She states that she has been having nausea Past medical history includes epilepsy, seizure, strokes, diabetes, hypothyroidism, arrhythmia, PE, congestive heart failure, DVT, hypertension, GERD, hernia, endometriosis, anxiety, bipolar depression, mitral valve prolapse with regurgitation Past surgical history includes cardiac catheter, cholecystectomy, hernia repair , hysterectomy, D&C, joint replacement, orthopedic surgery, torn meniscus and implant in the patient's right knee Timing/Duration: day(s) (3 days) Severity: moderate Modifying Factors: Improves With: medication (took 2 doses of clindamycin which were prescribed in this ER) Associated Symptoms: nausea, malaise, No vomiting, No abdominal pain, No shortness of breath, No heartburn, No diaphoresis, No cough, No chills, No chest pain, No fever, No headaches, No loss of appetite Allergies/Adverse Reactions: aspirin Allergy (Mild, Verified 01/08/18 00:49) Nausea and Vomiting codeine [Codeine] Allergy (Mild, Verified 01/08/18 00:49) Itching fluoxetine HCl [From Prozac] Allergy (Mild, Verified 01/08/18 00:49) confusion , "jumped out of a moving truck" Penicillins Allergy (Mild, Verified 01/08/18 00:49) Nausea and Vomiting promethazine HCl [From Phenergan] Allergy (Mild, Verified 01/08/18 00:49) tremors clindamycin Adverse Reaction (Verified 01/08/18 00:49) doxycycline hyclate [From Vibra-Tabs] Adverse Reaction (Verified 01/08/18 00:49) sulfamethoxazole [From Bactrim] Adverse Reaction (Verified 01/08/18 00:49) trimethoprim [From Bactrim] Adverse Reaction (Verified 01/08/18 00:49) steroid from breathing treatment Allergy (Mild, Uncoded 11/21/17 01:42) Blisters Home Medications: Diltiazem HCl [Cartia Xt] 180 mg PO QPM 09/27/14 [History] Levothyroxine Sodium 100 Mcg [Synthroid 100 Mcg] 100 mcg PO QAM 09/27/14 [ History] Simvastatin [Zocor] 20 mg PO HS 09/27/14 [History] Clopidogrel Bisulfate 75 mg [PLAVIX 75 MG Tablet] 75 mg PO DAILY 04/05/15 [History] Cyclobenzaprine HCl 10 mg [Cyclobenzaprine 10 MG] 10 mg PO DAILY 07/16/15 [History] Lamotrigine 100 mg [lamICTAL 100MG TABLET] 200 mg PO BID 09/27/15 [History ] Diazepam 5 mg [Valium 5 MG] 5 mg PO TIDPRN 02/14/16 [History] Omeprazole 20 MG [Prilosec 20 mg] 20 mg PO DAILY 04/20/16 [History] Trazodone HCl [Oleptro ER] 150 mg PO HS 04/20/16 [History] Albuterol Sulfate [Ventolin Hfa] 8 gm IH Q4HPRN PRN 12/21/16 [History] Sertraline HCl 50 mg [Zoloft 50 mg Tablet] 50 mg PO DAILY 12/21/16 [History] Estradiol 0.5 mg PO DAILY 07/30/17 [History] Loratadine 10 mg [Claritin 10 mg] 10 mg PO DAILY 07/30/17 [History] Potassium Chloride [K-Dur] 20 meq PO DAILY 08/03/17 [History] Gabapentin 800 mg PO QID 09/10/17 [History] Magnesium Oxide 400 mg PO DAILY 09/10/17 [History] Naproxen 500 mg [Naprosyn 500 MG] 500 mg PO [id number] PRN 09/10/17 [History] Oxycodone / APAP 10/325 mg [Oxycodone-Acetaminophen 10-325] 1 tab PO Q4- 6HPRN PRN 09/10/17 [History] Liraglutide [Victoza 2-Jacob] 1.2 mg SQ DAILY 01/05/18 [History] Hx Tetanus, Diphtheria Vaccination/Date Given: Yes Hx Influenza Vaccination/Date Given: No Hx Pneumococcal Vaccination/Date Given: No - Review of Systems Constitutional: No Fever, No Chills Eyes: No Symptoms Ears, Nose, & Throat: No Symptoms Respiratory: No Cough, No Dyspnea Cardiac: No Chest Pain, No Edema, No Syncope Abdominal/Gastrointestinal: No Abdominal Pain, No Nausea, No Vomiting, No Diarrhea Genitourinary Symptoms: No Dysuria Musculoskeletal: Other (Draining lesion right knee with surrounding erythema) Skin: Other (draining lesion right knee with surrounding erythema) Neurological: No Dizziness, No Focal Weakness, No Sensory Changes Psychological: No Symptoms Endocrine: No Symptoms All Other Systems: Reviewed and Negative - Past Medical History Pertinent Past Medical History: Yes Neurological History: Epilepsy, Seizures, Stroke ENT History: No Pertinent History Cardiac History: Arrhythmia, Congestive Heart Failure, Deep Vein Thrombosis, Hypertension Respiratory History: Pulmonary Embolism, Other Endocrine Medical History: Diabetes Type I, Hypothyroidism Musculoskeletal History: Other GI Medical History: GERD, Hernia History: No Pertinent History Psycho-Social History: Anxiety, Bipolar, Depression, Panic Disorder Female Reproductive Disorders: Endometriosis Other Medical History: Mitral valve prolapse with regurgitation - Past Surgical History Past Surgical History: Yes Neuro Surgical History: No Pertinent History Cardiac: Cardiac Catheterization Respiratory: No Pertinent History Gastrointestinal: Cholecystectomy, Hernia Repair Genitourinary: No Pertinent History Musculoskeletal: Joint Replacement, Orthopedic Surgery Female Surgical History: Hysterectomy, Dilation & Curettage Other Surgical History: torn miniscus and implant-RT KNEE" partial scope replacement" - Social History Smoking Status: Former smoker How long have you smoked: 15 years Exposure to second hand smoke: Yes Alcohol Use: None Drug Use: none Patient Lives Alone: No Significant Family History: no pertinent family hx, heart disease, diabetes, hypertension - Female History Hx Now: No (complete hysterectomy) - Nursing Vital Signs Nursing Vital Signs: Initial Vital Signs Temperature 99.6 F 01/08/18 00:38 Pulse Rate 81 01/08/18 00:38 Blood Pressure 114/74 01/08/18 00:38 O2 Sat by Pulse Oximetry 100 01/08/18 00:38 Pain Scale Pain Intensity 10 - Physical Exam General Appearance: mild distress Eye Exam: PERRL/EOMI, eyes nml inspection Ears, Nose, Throat Exam: normal ENT inspection, TMs normal, pharynx normal, moist mucous membranes Neck Exam: normal inspection, non-tender, supple, full range of motion Respiratory Exam: normal breath sounds, lungs clear, No respiratory distress Cardiovascular Exam: regular rate/rhythm, normal heart sounds, normal peripheral pulses Gastrointestinal/Abdomen Exam: soft, normal bowel sounds, No tenderness, No mass Back Exam: normal inspection, normal range of motion, No CVA tenderness, No vertebral tenderness Extremity Exam: other (Right knee with 1.5 cm raised , draining erythematous lesion anteriorly surrounding him area of erythema approximately 7 cm.) Neurologic Exam: alert, oriented x 3, cooperative, hair baler II-XII nml as tested, normal mood/affect, nml cerebellar function, nml station & gait, sensation nml, No motor deficits Skin Exam: other (raised 1.5 cm erythematos draining lesion right anterior knee 7 cm surrounding erythema) Lymphatic Exam: No adenopathy SpO2 Interpretation: normal (100%) SpO2: 100 Oxygen Delivery: Room Air - Course Nursing assessment & vital signs reviewed: Yes Ordered Tests: Active Orders 24 hr Category Date Time Status IV Insertion STAT Care 01/08/18 00:49 Active Wound Care STAT Care 01/08/18 01:34 Active BLOOD CULTURE Stat Lab 01/08/18 01:10 Received BMP Stat Lab 01/08/18 01:00 Completed CBC W DIFF Stat Lab 01/08/18 01:00 Completed CULTURE,WOUND Stat Lab 01/08/18 01:00 Received Medication Summary Generic Name Dose Route Start Last Admin Trade Name Parker PRN Reason Stop Dose Admin Vancomycin HCl 250 mls @ 167 mls/hr 01/08/18 00:52 01/08/18 01:08 Vancomycin 1gm/ Ns 250ml IV 01/08/18 02:21 167 mls/hr STAT ONE Administration Discontinued Medications Generic Name Dose Route Start Last Admin Trade Name Parker PRN Reason Stop Dose Admin Bacitracin Zinc 0.9 gm 01/08/18 01:34 01/08/18 01:39 Baciguent Packet TP 01/08/18 01:35 0.9 gm STAT ONE Administration Vancomycin HCl Confirm 01/08/18 00:57 Vancomycin 1gm/ Ns 250ml Administered 01/08/18 00:58 Dose 250 mls @ ud IV .STK-MED ONE Lab/Rad Data: Laboratory Result Diagrams 01/08/18 01:00 01/08/18 01:00 Laboratory Results 01/08/18 01/08/18 Range/Units 01:00 01:00 WBC 7.9 (4.0-10.5) K/mm3 RBC 4.33 (4.1-5.4) M/mm3 Hgb 12.6 (12.0-16.0) gm/dl Hct 38.2 (35-47) % MCV 88.2 (78-100) fl MCH 29.1 (26-32) pg MCHC 33.0 (32-36) g/dl RDW 13.2 (11.5-14.0) % Plt Count 212 (150-450) K/mm3 MPV 11.0 H (6-9.5) fl Gran % 58.3 (36.0-66.0) % Eos # (Auto) 0.45 (0-0.5) Absolute Lymphs (auto) 2.20 (1.0-4.6) Absolute Monos (auto) 0.60 (0.0-1.3) Lymphocytes % 28.0 (24.0-44.0) % Monocytes % 7.6 (0.0-12.0) % Eosinophils % 5.7 H (0.00-5.0) % Basophils % 0.4 (0.0-0.4) % Absolute Granulocytes 4.57 (1.4-6.9) Basophils # 0.03 (0-0.4) Sodium 143 (137-145) mmol/L Potassium 3.6 (3.5-5.1) mmol/L Chloride 101 (98-107) mmol/L Carbon Dioxide 30 (22-30) mmol/L Anion Gap 15.5 H (5-15) MEQ/L BUN 11 (7-17) mg/dL Creatinine 0.73 (0.52-1.04) mg/dL Estimated GFR > 60.0 ML/MIN Glucose 105 (74-106) mg/dL Calcium 9.8 (8.4-10.2) mg/dL - Progress Progress: improved Progress Note: 01/08/18 02:21 42-year-old white female with a history of diabetes arrives with complaint of what she says is a spider bite to her right knee on January 05, 2017. She was seen in this emergency room on January 06 given clindamycin. She states she's been having drainage from the lesion she has approximately 1.5 cm raised area on the right anterior knee she has about 8 cm of surrounding erythema. There does not appear to be an effusion of the right knee. Wound cultures have been obtained. CBC CMP essentially normal patient apparently had been given clindamycin in this emergency room however she states she only took 2 doses because it irritated her stomach. I have given the patient 1 g of vancomycin IV after blood cultures and wound cultures are obtained. Patient has been given a prescription by her pain field artillery fire control man/family doctor for Percocet 10/325 she received 120 of these on December 18, 2017.she initially told me that they weren't doing anything for her pain, then she told me she was out of them. I have told her that she needs to contact her family doctor or pain field artillery fire control man for more of these. If they feel that these are necessary. Patient will be advised to follow-up with her family doctor is noted that she has a listed allergy of penicillin doxycycline and Bactrim. And she has just decided not to take clindamycin. . . 01/08/18 02:23 - Departure Time of Disposition: 02:23 Departure Disposition: Home Clinical Impression: Cellulitis of right knee, reported insect bite right knee Condition: Fair Critical Care Time: No Referrals: ERICA BROCK [Primary Care Provider] - Additional Instructions: Return home. Bacitracin to your right knee cool packs 24-48 hours. Follow-up with your family doctor tomorrow call and arrange an appointment. Contact your family doctor/pain field artillery fire control man for further pain medications. Return for acute distress or for severe symptoms.
[2018-01-08] MEDS: Vancomycin 1GM/ Ns 250ML*** 250 ML IV ONE (01:08)
[2018-01-08 01:18] LABS: BASOPHIL % 0.4 % (0.0-0.4); Basophil (Absolute #) 0.03 (0-0.4); Eosinophil % 5.7 % (0.00-5.0); Eosinophil (Absolute #) 0.45 (0-0.5); Granulocyte Absolute (ANC) 4.57 (1.4-6.9); Granulocytes % 58.3 % (36.0-66.0); Hematocrit 38.2 % (35-47); Hemoglobin 12.6 gm/dl (12.0-16.0); Mean Cell Volume 88.2 fl (78-100); Mean Corpuscular Hemoglobin 29.1 pg (26-32); Monocytes % 7.6 % (0.0-12.0); Platelet Count 212 K/mm3 (150-450); Red Blood Count 4.33 M/mm3 (4.1-5.4); Red Cell Distribution Width 13.2 % (11.5-14.0); White Blood Count 7.9 K/mm3 (4.0-10.5)
[2018-01-08 01:37] LABS: ANION GAP 15.5 MEQ/L (5-15); BLOOD UREA NITROGEN 11 mg/dL (7-17); CHLORIDE 101 mmol/L (98-107); Calcium 9.8 mg/dL (8.4-10.2); Carbon Dioxide 30 mmol/L (22-30); Creatinine 1 0.73 mg/dL (0.52-1.04); Glucose 105 mg/dL (74-106); Potassium 3.6 mmol/L (3.5-5.1); SODIUM 143 mmol/L (137-145)
[2018-01-08] MEDS: BACIGUENT PACKET TP ONE (01:39)
[2018-01-08] MEDS ORDERED: BACIGUENT PACKET ONE (02:24)
[2018-01-08] MEDS: OXYCODONE-ACETAMINOPHEN 10-325 PO STA (02:33)
[2018-01-08] MEDS ORDERED: OXYCODONE-ACETAMINOPHEN 10-325 ONE (02:33)
== END 2018-01-08 02:47 | disposition home or self-care (01) ==
LOC: ED 00:22
DX: L03.115 Cellulitis of right lower limb (principal); S80.261A Insect bite (nonvenomous), right knee, initial encounter; E03.9 Hypothyroidism, unspecified; E10.8 Type 1 diabetes mellitus with unspecified complications; K21.9 Gastro-esophageal reflux disease without esophagitis; I34.1 Nonrheumatic mitral (valve) prolapse; Z79.899 Other long term (current) drug therapy; G40.909 Epilepsy, unspecified, not intractable, without status epilepticus; Z86.73 Personal history of transient ischemic attack (TIA), and cerebral infarction without residual deficits; I50.9 Heart failure, unspecified; Z86.711 Personal history of pulmonary embolism; I10 Essential (primary) hypertension; Z86.718 Personal history of other venous thrombosis and embolism; N80.9 Endometriosis, unspecified
CPT/HCPCS: 36415; 80048; 85025; 87040; 87070; 96365; 99284; J3370; A9270-GY

== ENCOUNTER 2018-01-10 11:09 | Inpatient (IN) | payer OTHER ==
[2018-01-10] MEDS ORDERED: Zofran 4 MG/2 ML VIAL IV PRN (11:39)
[2018-01-10 11:52] LABS: BASOPHIL % 0.6 % (0.0-0.4); Basophil (Absolute #) 0.03 (0-0.4); Eosinophil % 9.2 % (0.00-5.0); Eosinophil (Absolute #) 0.47 (0-0.5); Granulocyte Absolute (ANC) 2.44 (1.4-6.9); Granulocytes % 47.5 % (36.0-66.0); Hemoglobin 12.1 gm/dl (12.0-16.0); Lymphocyte (Absolute #) 1.67 (1.0-4.6); Lymphocytes % 32.6 % (24.0-44.0); Mean Cell Volume 88.7 fl (78-100); Mean Corpuscular Hgb Concent. 32.7 g/dl (32-36); Monocyte (Absolute #) 0.52 (0.0-1.3); Monocytes % 10.1 % (0.0-12.0); Platelet Count 209 K/mm3 (150-450); Red Blood Count 4.17 M/mm3 (4.1-5.4); Red Cell Distribution Width 12.9 % (11.5-14.0); White Blood Count 5.1 K/mm3 (4.0-10.5)
[2018-01-10 12:30] LABS: ALBUMIN 4.5 g/dL (3.5-5.0); ALKALINE PHOSPHATASE 118 U/L (38-126); ANION GAP 13.7 MEQ/L (5-15); BLOOD UREA NITROGEN 10 mg/dL (7-17); CHLORIDE 103 mmol/L (98-107); Calcium 9.4 mg/dL (8.4-10.2); Carbon Dioxide 31 mmol/L (22-30); Creatinine 1 0.69 mg/dL (0.52-1.04); Glucose 100 mg/dL (74-106); SGOT/AST 23 U/L (14-36); SGPT/ALT 13 U/L (0-35); SODIUM 144 mmol/L (137-145); Total Protein 7.5 g/dL (6.3-8.2)
[2018-01-10 13:56] LABS: Appearance CLEAR (CLEAR); Bilirubin NEGATIVE (NEGATIVE); Blood NEGATIVE Ery/ul (0-5); Glucose NEGATIVE (NEGATIVE); Ketones NEGATIVE (NEGATIVE); Leukocyte Esterase NEGATIVE (NEGATIVE); Nitrite NEGATIVE (NEGATIVE); Protein,Urine Dip NEGATIVE (Negative); Urobilinogen NORMAL mg/dL (0-1)
[2018-01-10] MEDS ORDERED: Ventolin Hfa MDI IH PRN (15:06)
[2018-01-10] MEDS: VANCOCIN 1 GM VIAL*** 1 GM in Sodium Chloride 0.9% 250 ML 250 ML IV SCH ×2 (15:11→22:18)
[2018-01-10] MEDS ORDERED: Valium 5 MG PO PRN (15:15)
[2018-01-10] MEDS: Lactated Ringers 1,000 ML IV SCH (15:15)
[2018-01-10] MEDS ORDERED: PROVENTIL COMMON CANISTER IH PRN (15:20)
[2018-01-10] MEDS: OXYCODONE-ACETAMINOPHEN 10-325 PO PRN ×3 (15:35→21:07)
[2018-01-10] MEDS: SYNTHROID 100 MCG PO SCH (16:49)
[2018-01-10] MEDS: Protonix 40MG Tablet PO SCH (16:49)
[2018-01-10] MEDS: Cyclobenzaprine 10 MG PO SCH (16:49)
[2018-01-10] MEDS: CLARITIN 10 MG PO SCH (16:50)
[2018-01-10] MEDS: PLAVIX 75 MG Tablet PO SCH (16:50)
[2018-01-10] MEDS: MAG-OX 400 PO SCH (16:50)
[2018-01-10] MEDS: ZOLOFT 50 MG TABLET PO SCH (16:50)
[2018-01-10] MEDS: Neurontin 400 MG PO SCH ×2 (16:50→22:19)
[2018-01-10] MEDS: ESTRACE 1 MG PO SCH (16:51)
[2018-01-10] MEDS ORDERED: TRAZODONE HCL 150 MG PO SCH (22:00)
[2018-01-10] MEDS: Cardizem CD 180 MG PO SCH (22:18)
[2018-01-10] MEDS: Desyrel 150 MG PO SCH (22:18)
[2018-01-10] MEDS: lamICTAL 100MG TABLET PO SCH (22:19)
[2018-01-10] MEDS: ZOCOR 20MG PO SCH (22:19)
[2018-01-10] MEDS ORDERED: PATIENT OWN MEDICATION IH PRN (22:51)
[2018-01-11] MEDS: OXYCODONE-ACETAMINOPHEN 10-325 PO PRN ×3 (02:23→17:02)
[2018-01-11] MEDS: Lactated Ringers 1,000 ML IV SCH ×2 (04:13→16:58)
[2018-01-11] MEDS ORDERED: PROVENTIL 2.5 MG/3 ML NEB IH ONE (04:14)
[2018-01-11] MEDS ORDERED: Nitrostat 0.4 MG Tablet SL PRN (04:27)
[2018-01-11] MEDS ORDERED: ENOXAPARIN SODIUM SQ ONE (04:31)
[2018-01-11] MEDS ORDERED: MORPHINE SULFATE 4 MG INJ IV PRN (04:33)
[2018-01-11] MEDS: SUBLIMAZE 100 MCG/2 ML IV PRN ×3 (05:08→19:54)
[2018-01-11] MEDS: VANCOCIN 1 GM VIAL*** 1 GM in Sodium Chloride 0.9% 250 ML 250 ML IV SCH ×3 (06:06→21:05)
--- NOTE | 2018-01-11 08:52 | PCM.NOTE ---
Date and Time: 01/11/18845 Subjective Assessment: Pt was admitted from office yesterday with cellulitis, ?spider bite. On vancomycin. Overnight she had 10/10 substernal chest pain (pressure/squeezing) , nonradiating, with diaphoresis and SOB, no nausea, no palpitations. This morning she is still having 3/10 chest discomfort. CXR was done with preliminary read bibasilar atelectasis v infiltrate. D-dimer elevated; CTA chest to r/o PE was ordered "stat" but apparently was put off for hours as the pt had had some liquids. She is going for CT now. Pt was started on lovenox 40mg SQ daily. She states her knee cellulitis is still bothering her; pain not helped by the percocet. She did have fentanyl a few hours ago. She does not seem to remember that. Her BP was 98 systolic, manually. - Review of Systems Constitutional: No Fever Respiratory: Short Of Breath Cardiac: Chest Pain Skin: Cellulitis Objective Exam General Appearance: mild distress, alert Neurologic Exam: oriented x 3, cooperative Skin Exam: other (R knee with apprxo 2 cm erythematous defect with very mild yellow exudate. decreased erythema surrounding the area. still warm and ttp.) OBJECTIVE DATA Vital Signs: Vital Signs - 24 hr Temp Pulse Resp BP BP Pulse Ox 01/11/18 08:00 96.9 F 69 18 88/49 95 01/11/18 04:55 66 20 91/53 97 01/11/18 04:34 74 133/83 01/11/18 04:18 75 20 100 01/11/18 04:05 97.8 F 73 16 113/67 99 01/10/18 23:23 98.0 F 67 16 100/57 99 01/10/18 19:59 70 16 99 01/10/18 19:22 98.7 F 106 H 18 105/56 99 01/10/18 15:55 62 20 100 01/10/18 15:26 96.7 F 62 18 100/55 100 01/10/18 11:26 98.4 F 70 18 103/58 98 Oxygen-Last 24 hours O2 Percentage 4 Liters = 36% O2 Percentage 4 Liters = 36% O2 Percentage 4 Liters = 36% O2 Percentage 4 Liters = 36% O2 Percentage 4 Liters = 36% Oxygen Flowrate (L/min)-RT 4 Pain Assessment - Last Documented Pain Intensity 10 Pain Scale Used 0-10 Pain Scale Intake and Output: Intake & Output 01/08/18 01/09/18 01/10/18 01/11/18 11:59 11:59 11:59 11:59 Intake Total 2751 Output Total 2200 Balance 551 Weight 90.8 kg Lab Results: Accuchecks Date 01/10/18 Date 01/10/18 Time 16:00 Time 11:30 Accucheck Value: 114 Accucheck Value: 126 Accucheck Value: 110 Lab Results-Last 24 Hours 01/10/18 01/10/18 01/10/18 Range/Units 11:40 11:40 11:40 WBC 5.1 (4.0-10.5) K/mm3 RBC 4.17 (4.1-5.4) M/mm3 Hgb 12.1 (12.0-16.0) gm/dl Hct 37.0 (35-47) % MCV 88.7 (78-100) fl MCH 29.0 (26-32) pg MCHC 32.7 (32-36) g/dl RDW 12.9 (11.5-14.0) % Plt Count 209 (150-450) K/mm3 MPV 11.0 H (6-9.5) fl Gran % 47.5 (36.0-66.0) % Eos # (Auto) 0.47 (0-0.5) Absolute Lymphs (auto) 1.67 (1.0-4.6) Absolute Monos (auto) 0.52 (0.0-1.3) Lymphocytes % 32.6 (24.0-44.0) % Monocytes % 10.1 (0.0-12.0) % Eosinophils % 9.2 H (0.00-5.0) % Basophils % 0.6 (0.0-0.4) % Absolute Granulocytes 2.44 (1.4-6.9) Basophils # 0.03 (0-0.4) D-Dimer (215-500) ng/mL Sodium 144 (137-145) mmol/L Potassium 4.0 (3.5-5.1) mmol/L Chloride 103 (98-107) mmol/L Carbon Dioxide 31 H (22-30) mmol/L Anion Gap 13.7 (5-15) MEQ/L BUN 10 (7-17) mg/dL Creatinine 0.69 (0.52-1.04) mg/dL Estimated GFR > 60.0 ML/MIN Glucose 100 (74-106) mg/dL Hemoglobin A1c 5.34 (4.5-6.0) % Calcium 9.4 (8.4-10.2) mg/dL Total Bilirubin 0.30 (0.2-1.3) mg/dL AST 23 (14-36) U/L ALT 13 (0-35) U/L Alkaline Phosphatase 118 (38-126) U/L Troponin I (0.000-0.034) ng/mL Serum Total Protein 7.5 (6.3-8.2) g/dL Albumin 4.5 (3.5-5.0) g/dL Ur Collection Type Urine Color (YELLOW) Urine Appearance (CLEAR) Urine pH (5-6) Ur Specific [place] (1.005-1.025) Urine Protein (Negative) Urine Ketones (NEGATIVE) Urine Blood (0-5) Laurent/ul Urine Nitrite (NEGATIVE) Urine Bilirubin (NEGATIVE) Urine Urobilinogen (0-1) mg/dL Ur Leukocyte Esterase (NEGATIVE) Urine Glucose (NEGATIVE) mg/dL Specimen Received 01/10/18 01/11/18 01/11/18 Range/Units 13:50 05:00 05:00 WBC (4.0-10.5) K/mm3 RBC (4.1-5.4) M/mm3 Hgb (12.0-16.0) gm/dl Hct (35-47) % MCV (78-100) fl MCH (26-32) pg MCHC (32-36) g/dl RDW (11.5-14.0) % Plt Count (150-450) K/mm3 MPV (6-9.5) fl Gran % (36.0-66.0) % Eos # (Auto) (0-0.5) Absolute Lymphs (auto) (1.0-4.6) Absolute Monos (auto) (0.0-1.3) Lymphocytes % (24.0-44.0) % Monocytes % (0.0-12.0) % Eosinophils % (0.00-5.0) % Basophils % (0.0-0.4) % Absolute Granulocytes (1.4-6.9) Basophils # (0-0.4) D-Dimer 753 H* (215-500) ng/mL Sodium (137-145) mmol/L Potassium (3.5-5.1) mmol/L Chloride (98-107) mmol/L Carbon Dioxide (22-30) mmol/L Anion Gap (5-15) MEQ/L BUN (7-17) mg/dL Creatinine (0.52-1.04) mg/dL Estimated GFR ML/MIN Glucose (74-106) mg/dL Hemoglobin A1c (4.5-6.0) % Calcium (8.4-10.2) mg/dL Total Bilirubin (0.2-1.3) mg/dL AST (14-36) U/L ALT (0-35) U/L Alkaline Phosphatase (38-126) U/L Troponin I < 0.012 (0.000-0.034) ng/mL Serum Total Protein (6.3-8.2) g/dL Albumin (3.5-5.0) g/dL Ur Collection Type CCMS Urine Color YELLOW (YELLOW) Urine Appearance CLEAR (CLEAR) Urine pH 7.0 (5-6) Ur Specific [place] 1.010 (1.005-1.025) Urine Protein NEGATIVE (Negative) Urine Ketones NEGATIVE (NEGATIVE) Urine Blood NEGATIVE (0-5) Laurent/ul Urine Nitrite NEGATIVE (NEGATIVE) Urine Bilirubin NEGATIVE (NEGATIVE) Urine Urobilinogen NORMAL (0-1) mg/dL Ur Leukocyte Esterase NEGATIVE (NEGATIVE) Urine Glucose NEGATIVE (NEGATIVE) mg/dL Specimen Received 01-10-18 6332 Radiology Exams: Radiology Procedures Category Date Time Status CHEST 1 VIEW (PORTABLE) Stat Exams 01/11/18 04:27 Taken CHEST WITH CONTRAST [CT] Stat Exams 01/11/18 06:09 Ordered Assessment/Plan (1) Chest pain Current Visit: Yes Status: Acute Qualifiers: Chest pain type: other chest pain Qualified Code(s): R07.89 - Other chest pain; R07.8 - Other chest pain Assessment & Plan: First troponin is negative. CXR atelectasis vs infiltrate, bibasilar (await re- read by Dr. Dougherty). D-dimer elevated; pt getting CTA chest right now. On prophylactic lovenox (but did not start it until last night). Code(s): R07.9 - CHEST PAIN, UNSPECIFIED (2) Cellulitis Current Visit: Yes Status: Acute Onset Date: ~01/10/18 Qualifiers: Site of cellulitis: extremity Site of cellulitis of extremity: lower extremity Laterality: right Qualified Code(s): L03.115 - Cellulitis of right lower limb Assessment & Plan: This looks much improved this morning. Day #2 of IV vancomycin. Code(s): L03.90 - CELLULITIS, UNSPECIFIED (3) Failure of outpatient treatment Current Visit: Yes Status: Acute Onset Date: ~01/10/18 Code(s): Z78.9 - OTHER SPECIFIED HEALTH STATUS (4) Spider bite wound Current Visit: Yes Status: Acute Onset Date: ~01/10/18 Qualifiers: Encounter type: subsequent encounter Injury intent: accidental or unintentional Qualified Code(s): T63.301D - Toxic effect of unspecified spider venom, accidental (unintentional), subsequent encounter Code(s): T63.301A - TOXIC EFFECT OF UNSP SPIDER VENOM, ACCIDENTAL, INIT (5) Depression Current Visit: No Status: Chronic Qualifiers: Depression Type: major depressive disorder Active/Remission status: currently active Major depression episode severity: moderate Code(s): F32.9 - MAJOR DEPRESSIVE DISORDER, SINGLE EPISODE, UNSPECIFIED (6) Diabetes type 2, controlled Current Visit: No Status: Chronic Qualifiers: Diabetes mellitus custodial insulin use: with custodial use Diabetes mellitus complication status: with neurologic complications Diabetes mellitus complication detail: with polyneuropathy Qualified Code(s): E11.42 - Type 2 diabetes mellitus with diabetic polyneuropathy; Z79.4 - termite helper (current) use of insulin; Z79.4 - correction (current) use of insulin; Z79.4 - correction ( current) use of insulin; Z79.4 - termite helper (current) use of insulin Code(s): E11.9 - TYPE 2 DIABETES MELLITUS WITHOUT COMPLICATIONS (7) Memory deficit Current Visit: Yes Status: Acute Assessment & Plan: she is worried about not being able to remember questions for me, or going into a room and not remembering why she is there. This may very well be due to her recent varied illnesses (has had several hospital admissions this year). May need more workup outpatient. Will check a TSH and an RPR. Code(s): R41.3 - OTHER AMNESIA
--- NOTE | 2018-01-11 09:32 | XRAY ---
Indication: Chest pain and pressure. Elevated d-dimer. Multiple contiguous axial images obtained through the chest using 80 cc Isovue 370 contrast and PE protocol. Comparison: CT chest without contrast June 06, 2017. There is good opacification of the pulmonary arteries to include the lobar and segmental branches. No filling defect or pulmonary embolus. Heart is not enlarged. Aorta normal in course and caliber. No pathologic mediastinal/hilar lymphadenopathy. Examination of the lung parenchyma again demonstrates bibasilar subsegmental atelectasis. No infiltrate or effusion. Bony thorax intact. New right sided Portacath with catheter and tip coiled in the anterior chest wall. Limited upper abdomen again demonstrates mild fatty liver and cholecystectomy clips. Impression: 1. Negative pulmonary embolus. 2. Again bibasilar subsegmental atelectasis. No new or acute cardiopulmonary normalities. 3. Stable fatty liver. CTDI 23.68
--- NOTE | 2018-01-11 09:36 | XRAY ---
Indication: Chest pain. Comparison: September 24, 2017. Portable chest again underinflated with bibasilar atelectasis. Remaining heart and lungs unremarkable. Stable right Port-A-Cath with catheter and tip coiled in the chest wall. No new/acute findings.
[2018-01-11] MEDS: lamICTAL 100MG TABLET PO SCH ×2 (09:46→21:06)
[2018-01-11] MEDS: CLARITIN 10 MG PO SCH (09:46)
[2018-01-11] MEDS: Cyclobenzaprine 10 MG PO SCH (09:46)
[2018-01-11] MEDS: SYNTHROID 100 MCG PO SCH (09:46)
[2018-01-11] MEDS: Neurontin 400 MG PO SCH ×4 (09:46→21:06)
[2018-01-11] MEDS: PLAVIX 75 MG Tablet PO SCH (09:46)
[2018-01-11] MEDS: Protonix 40MG Tablet PO SCH (09:46)
[2018-01-11] MEDS: ZOLOFT 50 MG TABLET PO SCH (09:46)
[2018-01-11] MEDS: MAG-OX 400 PO SCH (09:46)
[2018-01-11] MEDS: ESTRACE 1 MG PO SCH (09:47)
[2018-01-11] MEDS: ENOXAPARIN SODIUM SQ SCH (09:59)
[2018-01-11] MEDS ORDERED: ENOXAPARIN SODIUM SQ SCH (10:00)
[2018-01-11 10:24] LABS: Hematocrit 31.4 % (35-47); Mean Corpuscular Hgb Concent. 31.8 g/dl (32-36); Mean Platelet Volume 10.7 fl (6-9.5); Platelet Count 164 K/mm3 (150-450); Red Blood Count 3.45 M/mm3 (4.1-5.4); Red Cell Distribution Width 12.8 % (11.5-14.0)
[2018-01-11 10:26] LABS: Mean Corpuscular Hemoglobin 28.9 pg (26-32)
[2018-01-11 10:48] LABS: BLOOD UREA NITROGEN 6 mg/dL (7-17); CHLORIDE 105 mmol/L (98-107); Calcium 8.7 mg/dL (8.4-10.2); Carbon Dioxide 32 mmol/L (22-30); Creatinine 1 0.67 mg/dL (0.52-1.04); Glucose 97 mg/dL (74-106); Potassium 3.4 mmol/L (3.5-5.1); SODIUM 142 mmol/L (137-145)
[2018-01-11] MEDS ORDERED: TROUGH DRUG LEVELS IJ ONE (13:30)
[2018-01-11] MEDS: Naprosyn 500 MG PO PRN (19:54)
[2018-01-11] MEDS: ZOCOR 20MG PO SCH (21:05)
[2018-01-11] MEDS: Cardizem CD 180 MG PO SCH (21:05)
[2018-01-11] MEDS: Desyrel 150 MG PO SCH (21:06)
[2018-01-12] MEDS: OXYCODONE-ACETAMINOPHEN 10-325 PO PRN ×5 (00:16→23:55)
[2018-01-12] MEDS: Lactated Ringers 1,000 ML IV SCH ×2 (02:02→15:39)
[2018-01-12] MEDS: VANCOCIN 1 GM VIAL*** 1 GM in Sodium Chloride 0.9% 250 ML 250 ML IV SCH ×3 (05:28→21:46)
[2018-01-12 05:41] LABS: BASOPHIL % 0.3 % (0.0-0.4); Basophil (Absolute #) 0.01 (0-0.4); Eosinophil % 7.3 % (0.00-5.0); Eosinophil (Absolute #) 0.26 (0-0.5); Granulocyte Absolute (ANC) 1.44 (1.4-6.9); Granulocytes % 40.3 % (36.0-66.0); Hemoglobin 9.5 gm/dl (12.0-16.0); Lymphocyte (Absolute #) 1.51 (1.0-4.6); Lymphocytes % 42.3 % (24.0-44.0); Mean Cell Volume 91.2 fl (78-100); Mean Corpuscular Hgb Concent. 31.7 g/dl (32-36); Mean Platelet Volume 10.5 fl (6-9.5); Monocyte (Absolute #) 0.35 (0.0-1.3); Monocytes % 9.8 % (0.0-12.0); Platelet Count 136 K/mm3 (150-450); Red Blood Count 3.29 M/mm3 (4.1-5.4); Red Cell Distribution Width 12.6 % (11.5-14.0); White Blood Count 3.6 K/mm3 (4.0-10.5)
[2018-01-12 06:05] LABS: ANION GAP 8.2 MEQ/L (5-15); BLOOD UREA NITROGEN 6 mg/dL (7-17); CHLORIDE 106 mmol/L (98-107); Calcium 8.4 mg/dL (8.4-10.2); Carbon Dioxide 31 mmol/L (22-30); Creatinine 1 0.67 mg/dL (0.52-1.04); Glucose 110 mg/dL (74-106); Mean Corpuscular Hemoglobin 28.8 pg (26-32); Potassium 3.6 mmol/L (3.5-5.1); SODIUM 142 mmol/L (137-145)
[2018-01-12] MEDS: CLARITIN 10 MG PO SCH (09:53)
[2018-01-12] MEDS: MAG-OX 400 PO SCH (09:53)
[2018-01-12] MEDS: Neurontin 400 MG PO SCH ×4 (09:53→21:47)
[2018-01-12] MEDS: Cyclobenzaprine 10 MG PO SCH (09:53)
[2018-01-12] MEDS: PLAVIX 75 MG Tablet PO SCH (09:53)
[2018-01-12] MEDS: Protonix 40MG Tablet PO SCH (09:53)
[2018-01-12] MEDS: SYNTHROID 100 MCG PO SCH (09:53)
[2018-01-12] MEDS: ZOLOFT 50 MG TABLET PO SCH (09:53)
[2018-01-12] MEDS: lamICTAL 100MG TABLET PO SCH ×2 (09:53→21:46)
[2018-01-12] MEDS: ENOXAPARIN SODIUM SQ SCH (09:54)
[2018-01-12] MEDS: ESTRACE 1 MG PO SCH (10:07)
--- NOTE | 2018-01-12 10:48 | PCM.NOTE ---
Date and Time: 01/12/18 1043 Subjective Assessment: Patient reports her wound just below her right knee has improved. She reports she always wears 4 LNC at home and has seen Dr. Gutierres for this. 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 She reports Dr. Alfaro and Dr. Armando decided she would be on plavix. She reports increased stress at home with extended family living at her house. She denies chest pain or shortness of breath. - Review of Systems Constitutional: No Symptoms Eyes: No Symptoms Ears, Nose, & Throat: No Symptoms Respiratory: No Symptoms Cardiac: No Symptoms Abdominal/Gastrointestinal: No Symptoms Genitourinary Symptoms: No Symptoms Musculoskeletal: No Symptoms Skin: Other (wound just below right knee) Objective Exam General Appearance: no apparent distress, alert, other (on oxygen 4 L by nasal cannula) Neurologic Exam: alert, cooperative, normal mood/affect Skin Exam: normal color, warm, dry, other (4 x 4 cm area of induration without fluctulance with small amount of drainage from top and 1 x 2 cm area of erythema.) Respiratory Exam: normal breath sounds, lungs clear, No crackles/rales, No rhonchi, No wheezing Cardiovascular Exam: regular rate/rhythm, normal heart sounds, No murmur, No friction rub, No gallop Gastrointestinal/Abdomen Exam: soft, normal bowel sounds, No tenderness, No distention, No mass, No guarding Extremity Exam: other (no c/c/e) OBJECTIVE DATA Vital Signs: Vital Signs - 24 hr Temp Pulse Resp BP Pulse Ox 01/12/18 07:20 97.9 F 71 16 106/53 96 01/12/18 04:10 98.0 F 71 20 96/52 98 01/11/18 23:50 98.5 F 74 18 90/54 99 01/11/18 21:31 76 16 98 01/11/18 19:43 97.8 F 76 18 91/55 99 01/11/18 16:00 96.7 F 75 20 101/55 99 01/11/18 13:18 98 01/11/18 12:00 96.1 F 65 16 93/52 99 Oxygen-Last 24 hours O2 Percentage 4 Liters = 36% O2 Percentage 4 Liters = 36% O2 Percentage 4 Liters = 36% O2 Percentage 4 Liters = 36% O2 Percentage 4 Liters = 36% O2 Percentage 4 Liters = 36% Pain Assessment - Last Documented Pain Intensity 10 Pain Scale Used 0-10 Pain Scale Intake and Output: Intake & Output 01/10/18 01/11/18 01/12/18 01/13/18 06:59 06:59 06:59 06:59 Intake Total 2751 4507 Output Total 2200 Balance 551 4507 Weight 90.8 kg 90.8 kg Lab Results: Accuchecks Date 01/12/18 Date 01/11/18 Date 01/11/18 Time 07:30 Time 21:00 Time 16:30 Accucheck Value: 110 Accucheck Value: 142 Accucheck Value: 118 Accucheck Value: 94 Lab Results-Last 24 Hours 01/11/18 01/11/18 01/11/18 Range/Units 10:18 10:18 13:30 WBC (4.0-10.5) K/mm3 RBC (4.1-5.4) M/mm3 Hgb (12.0-16.0) gm/dl Hct (35-47) % MCV (78-100) fl MCH (26-32) pg MCHC (32-36) g/dl RDW (11.5-14.0) % Plt Count (150-450) K/mm3 MPV (6-9.5) fl Gran % (36.0-66.0) % Eos # (Auto) (0-0.5) Absolute Lymphs (auto) (1.0-4.6) Absolute Monos (auto) (0.0-1.3) Lymphocytes % (24.0-44.0) % Monocytes % (0.0-12.0) % Eosinophils % (0.00-5.0) % Basophils % (0.0-0.4) % Absolute Granulocytes (1.4-6.9) Basophils # (0-0.4) Sodium 142 (137-145) mmol/L Potassium 3.4 L (3.5-5.1) mmol/L Chloride 105 (98-107) mmol/L Carbon Dioxide 32 H (22-30) mmol/L Anion Gap 9.0 (5-15) MEQ/L BUN 6 L (7-17) mg/dL Creatinine 0.67 (0.52-1.04) mg/dL Estimated GFR > 60.0 ML/MIN Glucose 97 (74-106) mg/dL Calcium 8.7 (8.4-10.2) mg/dL Troponin I < 0.012 (0.000-0.034) ng/mL TSH 3rd Generation (0.47-4.68) mIU/L Vancomycin Trough 17.52 (10-20) ug/mL 01/11/18 01/11/18 01/12/18 Range/Units 13:30 16:50 05:35 WBC (4.0-10.5) K/mm3 RBC (4.1-5.4) M/mm3 Hgb (12.0-16.0) gm/dl Hct (35-47) % MCV (78-100) fl MCH (26-32) pg MCHC (32-36) g/dl RDW (11.5-14.0) % Plt Count (150-450) K/mm3 MPV (6-9.5) fl Gran % (36.0-66.0) % Eos # (Auto) (0-0.5) Absolute Lymphs (auto) (1.0-4.6) Absolute Monos (auto) (0.0-1.3) Lymphocytes % (24.0-44.0) % Monocytes % (0.0-12.0) % Eosinophils % (0.00-5.0) % Basophils % (0.0-0.4) % Absolute Granulocytes (1.4-6.9) Basophils # (0-0.4) Sodium (137-145) mmol/L Potassium (3.5-5.1) mmol/L Chloride (98-107) mmol/L Carbon Dioxide (22-30) mmol/L Anion Gap (5-15) MEQ/L BUN (7-17) mg/dL Creatinine (0.52-1.04) mg/dL Estimated GFR ML/MIN Glucose (74-106) mg/dL Calcium (8.4-10.2) mg/dL Troponin I < 0.012 < 0.012 (0.000-0.034) ng/mL TSH 3rd Generation 1.230 (0.47-4.68) mIU/L Vancomycin Trough (10-20) ug/mL 01/12/18 01/12/18 Range/Units 05:35 05:35 WBC 3.6 L (4.0-10.5) K/mm3 RBC 3.29 L (4.1-5.4) M/mm3 Hgb 9.5 L (12.0-16.0) gm/dl Hct 30.0 L (35-47) % MCV 91.2 (78-100) fl MCH 28.8 (26-32) pg MCHC 31.7 L (32-36) g/dl RDW 12.6 (11.5-14.0) % Plt Count 136 L (150-450) K/mm3 MPV 10.5 H (6-9.5) fl Gran % 40.3 (36.0-66.0) % Eos # (Auto) 0.26 (0-0.5) Absolute Lymphs (auto) 1.51 (1.0-4.6) Absolute Monos (auto) 0.35 (0.0-1.3) Lymphocytes % 42.3 (24.0-44.0) % Monocytes % 9.8 (0.0-12.0) % Eosinophils % 7.3 H (0.00-5.0) % Basophils % 0.3 (0.0-0.4) % Absolute Granulocytes 1.44 (1.4-6.9) Basophils # 0.01 (0-0.4) Sodium 142 (137-145) mmol/L Potassium 3.6 (3.5-5.1) mmol/L Chloride 106 (98-107) mmol/L Carbon Dioxide 31 H (22-30) mmol/L Anion Gap 8.2 (5-15) MEQ/L BUN 6 L (7-17) mg/dL Creatinine 0.67 (0.52-1.04) mg/dL Estimated GFR > 60.0 ML/MIN Glucose 110 H (74-106) mg/dL Calcium 8.4 (8.4-10.2) mg/dL Troponin I (0.000-0.034) ng/mL TSH 3rd Generation (0.47-4.68) mIU/L Vancomycin Trough (10-20) ug/mL Radiology Exams: Radiology Procedures Category Date Time Status CHEST 1 VIEW (PORTABLE) Stat Exams 01/11/18 04:27 Completed CHEST WITH CONTRAST [CT] Stat Exams 01/11/18 06:09 Completed Assessment/Plan (1) Cellulitis Current Visit: Yes Status: Acute Onset Date: ~01/10/18 Qualifiers: Site of cellulitis: extremity Site of cellulitis of extremity: lower extremity Laterality: right Qualified Code(s): L03.115 - Cellulitis of right lower limb Assessment & Plan: Continue vancomycin. Culture from 01/08/18 was reported as normal skin jovani. This has improved clinically. Code(s): L03.90 - CELLULITIS, UNSPECIFIED (2) Chest pain Current Visit: Yes Status: Resolved Qualifiers: Chest pain type: other chest pain Qualified Code(s): R07.89 - Other chest pain; R07.8 - Other chest pain Assessment & Plan: Ruled out for acute [facility], chest CT neg for PE. Will discontinue tele. 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 insulin use: with caravan park and camping ground manager use Diabetes mellitus complication status: with neurologic complications Diabetes mellitus complication detail: with polyneuropathy Qualified Code(s): E11.42 - Type 2 diabetes mellitus with diabetic polyneuropathy; Z79.4 - assisted (current) use of insulin; Z79.4 - assisted (current) use of insulin; Z79.4 - cattle producers ( current) use of insulin; Z79.4 - cattle producers (current) use of insulin Code(s): E11.9 - TYPE 2 DIABETES MELLITUS WITHOUT COMPLICATIONS (4) Hypothyroidism Current Visit: Yes Status: Acute Code(s): E03.9 - HYPOTHYROIDISM, UNSPECIFIED
[2018-01-12] MEDS: SUBLIMAZE 100 MCG/2 ML IV PRN (16:42)
[2018-01-12] MEDS: PROVENTIL 2.5 MG/3 ML NEB IH PRN (19:44)
[2018-01-12] MEDS: ZOCOR 20MG PO SCH (21:46)
[2018-01-12] MEDS: Desyrel 150 MG PO SCH (21:46)
[2018-01-12] MEDS: Cardizem CD 180 MG PO SCH (21:46)
[2018-01-13] MEDS: PROVENTIL 2.5 MG/3 ML NEB IH PRN (00:28)
[2018-01-13] MEDS: Lactated Ringers 1,000 ML IV SCH (04:17)
[2018-01-13] MEDS: OXYCODONE-ACETAMINOPHEN 10-325 PO PRN ×3 (04:20→18:53)
[2018-01-13] MEDS: VANCOCIN 1 GM VIAL*** 1 GM in Sodium Chloride 0.9% 250 ML 250 ML IV SCH ×3 (05:28→21:22)
[2018-01-13] MEDS: SUBLIMAZE 100 MCG/2 ML IV PRN (05:49)
[2018-01-13 05:54] LABS: BASOPHIL % 0.2 % (0.0-0.4); Basophil (Absolute #) 0.01 (0-0.4); Eosinophil % 6.9 % (0.00-5.0); Granulocyte Absolute (ANC) 1.88 (1.4-6.9); Granulocytes % 43.5 % (36.0-66.0); Hematocrit 31.2 % (35-47); Hemoglobin 10.2 gm/dl (12.0-16.0); Lymphocyte (Absolute #) 1.69 (1.0-4.6); Mean Cell Volume 89.1 fl (78-100); Mean Corpuscular Hemoglobin 29.1 pg (26-32); Mean Corpuscular Hgb Concent. 32.7 g/dl (32-36); Mean Platelet Volume 10.8 fl (6-9.5); Monocyte (Absolute #) 0.45 (0.0-1.3); Monocytes % 10.4 % (0.0-12.0); Platelet Count 167 K/mm3 (150-450); Red Cell Distribution Width 12.6 % (11.5-14.0); White Blood Count 4.3 K/mm3 (4.0-10.5)
[2018-01-13 06:11] LABS: ANION GAP 9.9 MEQ/L (5-15); BLOOD UREA NITROGEN 5 mg/dL (7-17); CHLORIDE 104 mmol/L (98-107); Carbon Dioxide 35 mmol/L (22-30); Creatinine 1 0.63 mg/dL (0.52-1.04); Glucose 92 mg/dL (74-106); Potassium 3.4 mmol/L (3.5-5.1); SODIUM 145 mmol/L (137-145)
[2018-01-13] MEDS: ENOXAPARIN SODIUM SQ SCH (09:23)
[2018-01-13] MEDS: Cyclobenzaprine 10 MG PO SCH (09:23)
[2018-01-13] MEDS: ZOLOFT 50 MG TABLET PO SCH (09:24)
[2018-01-13] MEDS: SYNTHROID 100 MCG PO SCH (09:24)
[2018-01-13] MEDS: CLARITIN 10 MG PO SCH (09:24)
[2018-01-13] MEDS: ESTRACE 1 MG PO SCH (09:24)
[2018-01-13] MEDS: MAG-OX 400 PO SCH (09:24)
[2018-01-13] MEDS: Protonix 40MG Tablet PO SCH (09:24)
[2018-01-13] MEDS: lamICTAL 100MG TABLET PO SCH ×2 (09:24→21:05)
[2018-01-13] MEDS: Neurontin 400 MG PO SCH ×4 (09:24→21:06)
[2018-01-13] MEDS: PLAVIX 75 MG Tablet PO SCH (09:25)
[2018-01-13] MEDS ORDERED: NovoLOG Insulin SQ PRN (10:43)
[2018-01-13] MEDS ORDERED: Klor Con 10 MEQ PO ONE (10:44)
[2018-01-13] MEDS: SENOKOT 8.6 MG PO PRN (11:08)
--- NOTE | 2018-01-13 11:12 | PCM.NOTE ---
Date and Time: 01/13/18 1107 Subjective Assessment: Patient reports soaking her bed clothes last night and needing these changed. She reports very painful right knee. She reports no stool since admission. She is concerned that her insulin is not ordered but can't say exactly what she takes at home and no insulin is recorded on her home medication list. I explained to her that Victoza is not an insulin but an injectable medication for diabetes. - Review of Systems Constitutional: Fatigue, Night Sweats, Other (patient states she feels horrible) Eyes: No Symptoms Cardiac: No Symptoms Abdominal/Gastrointestinal: Constipation Genitourinary Symptoms: No Symptoms Musculoskeletal: Other (right knee and right thigh pain) Skin: Other (lesion on right knee with some blood drainage when she took her shower.) Objective Exam General Appearance: no apparent distress Neurologic Exam: alert, cooperative, other (depressed) Skin Exam: normal color, other (right knee with 2 x3 cm area of erythema, no induration, very tender to light touch, no lower extremity edema) Respiratory Exam: normal breath sounds, lungs clear, No crackles/rales, No rhonchi, No wheezing Cardiovascular Exam: regular rate/rhythm, normal heart sounds, No murmur, No friction rub, No gallop Gastrointestinal/Abdomen Exam: soft, normal bowel sounds, No tenderness, No distention, No mass, No guarding OBJECTIVE DATA Vital Signs: Vital Signs - 24 hr Temp Pulse Resp BP Pulse Ox 01/13/18 07:28 97.5 F 62 18 99/60 96 01/13/18 04:18 98.9 F 65 16 98/58 98 01/13/18 00:29 77 20 94 L 01/12/18 23:43 98.1 F 75 20 102/55 97 01/12/18 20:21 64 18 97 01/12/18 19:55 97.4 F 63 18 106/57 99 01/12/18 16:00 98.4 F 64 18 110/64 98 01/12/18 12:41 74 18 95 01/12/18 11:46 98.4 F 80 18 106/55 95 Oxygen-Last 24 hours O2 Percentage 2 Liters = 28% O2 Percentage 4 Liters = 36% O2 Percentage 4 Liters = 36% O2 Percentage 4 Liters = 36% O2 Percentage 4 Liters = 36% O2 Percentage 4 Liters = 36% Pain Assessment - Last Documented Pain Intensity 7 Pain Scale Used 0-10 Pain Scale Intake and Output: Intake & Output 01/11/18 01/12/18 01/13/18 01/14/18 06:59 06:59 06:59 06:59 Intake Total 2751 4507 6031 Output Total 2200 Balance 551 4507 6031 Weight 90.8 kg 90.8 kg Lab Results: Accuchecks Date 01/13/18 Date 01/12/18 Date 01/12/18 Date 01/12/18 Date 01/12/18 Time 07:30 Time 22:04 Time 16:30 Time 16:30 Time 11:30 Accucheck Value: 92 Accucheck Value: 141 Accucheck Value: 122 Accucheck Value: 122 Accucheck Value: 98 Lab Results-Last 24 Hours 01/13/18 01/13/18 Range/Units 05:30 05:30 WBC 4.3 (4.0-10.5) K/mm3 RBC 3.50 L (4.1-5.4) M/mm3 Hgb 10.2 L (12.0-16.0) gm/dl Hct 31.2 L (35-47) % MCV 89.1 (78-100) fl MCH 29.1 (26-32) pg MCHC 32.7 (32-36) g/dl RDW 12.6 (11.5-14.0) % Plt Count 167 (150-450) K/mm3 MPV 10.8 H (6-9.5) fl Gran % 43.5 (36.0-66.0) % Eos # (Auto) 0.30 (0-0.5) Absolute Lymphs (auto) 1.69 (1.0-4.6) Absolute Monos (auto) 0.45 (0.0-1.3) Lymphocytes % 39.0 (24.0-44.0) % Monocytes % 10.4 (0.0-12.0) % Eosinophils % 6.9 H (0.00-5.0) % Basophils % 0.2 (0.0-0.4) % Absolute Granulocytes 1.88 (1.4-6.9) Basophils # 0.01 (0-0.4) Sodium 145 (137-145) mmol/L Potassium 3.4 L (3.5-5.1) mmol/L Chloride 104 (98-107) mmol/L Carbon Dioxide 35 H (22-30) mmol/L Anion Gap 9.9 (5-15) MEQ/L BUN 5 L (7-17) mg/dL Creatinine 0.63 (0.52-1.04) mg/dL Estimated GFR > 60.0 ML/MIN Glucose 92 (74-106) mg/dL Calcium 9.0 (8.4-10.2) mg/dL Assessment/Plan (1) Cellulitis Current Visit: Yes Status: Acute Onset Date: ~01/10/18 Qualifiers: Site of cellulitis: extremity Site of cellulitis of extremity: lower extremity Laterality: right Qualified Code(s): L03.115 - Cellulitis of right lower limb Assessment & Plan: Continue vancomycin. Repeat wound culture taken yesterday and awaiting ID and sensitivity to direct outpatient oral antibiotic treatment. Code(s): L03.90 - CELLULITIS, UNSPECIFIED (2) Diabetes type 2, controlled Current Visit: No Status: Chronic Qualifiers: Diabetes mellitus skilled nursing insulin use: with skilled nursing use Diabetes mellitus complication status: with neurologic complications Diabetes mellitus complication detail: with polyneuropathy Qualified Code(s): E11.42 - Type 2 diabetes mellitus with diabetic polyneuropathy; Z79.4 - senior care (current) use of insulin; Z79.4 - senior care (current) use of insulin; Z79.4 - senior care ( current) use of insulin; Z79.4 - ad terminal makeup operator (current) use of insulin Assessment & Plan: Will order low dose sliding scale coverage if needed. Her blood glucoses have been well controlled currently. Code(s): E11.9 - TYPE 2 DIABETES MELLITUS WITHOUT COMPLICATIONS (3) Hypothyroidism Current Visit: Yes Status: Acute Code(s): E03.9 - HYPOTHYROIDISM, UNSPECIFIED (4) Leg pain, right Current Visit: Yes Status: Acute Assessment & Plan: Will check dopplers bilat as she had elevated D-dimer earlier in hospitalization and hx of DVT and PE in past. Chest CT was neg for PE during this hospitalization. Code(s): M79.604 - PAIN IN RIGHT LEG (5) Constipation Current Visit: Yes Status: Acute Assessment & Plan: Start colace scheduled and senna prn. Pt reports hx of irritable bowel syndrome. Code(s): K59.00 - CONSTIPATION, UNSPECIFIED (6) Polypharmacy Current Visit: Yes Status: Acute Code(s): Z79.899 - OTHER GROUP HOME (CURRENT ) DRUG THERAPY
[2018-01-13] MEDS: Desyrel 150 MG PO SCH (21:04)
[2018-01-13] MEDS: ZOCOR 20MG PO SCH (21:04)
[2018-01-13] MEDS: Cardizem CD 180 MG PO SCH (21:05)
[2018-01-13] MEDS: Naprosyn 500 MG PO PRN (21:22)
[2018-01-13] MEDS: Colace 100 MG PO SCH (21:31)
--- NOTE | 2018-01-13 22:31 | XRAY ---
Indication: Anterior knee wound. Elevated d-dimer. 2-dimensional sonogram and color Doppler imaging of the major venous vessels of the left and right leg was performed. Comparison: December 21, 2016. Again no thrombus seen in the examined deep venous vessels of the left and right leg including greater saphenous veins. Veins demonstrate normal compressibility. Venous waveforms are normal with and without augmentation. Impression: Left and right legs again negative for DVT. Comment: Preliminary report was given.
[2018-01-14] MEDS: OXYCODONE-ACETAMINOPHEN 10-325 PO PRN ×5 (00:01→21:19)
[2018-01-14] MEDS: Colace 100 MG PO SCH ×3 (00:01→21:18)
[2018-01-14] MEDS ORDERED: TROUGH DRUG LEVELS IJ ONE (05:30)
[2018-01-14] MEDS: VANCOCIN 1 GM VIAL*** 1 GM in Sodium Chloride 0.9% 250 ML 250 ML IV SCH (06:40)
[2018-01-14] MEDS: PROVENTIL 2.5 MG/3 ML NEB IH PRN (07:24)
--- NOTE | 2018-01-14 08:57 | PCM.NOTE ---
Date and Time: 01/14/18 08 Subjective Assessment: R leg still hurting; she starts having pain after about 4h but pain meds are scheduled q8h. some trouble swallowing food; last thyroid u/s Jul 2016. - Review of Systems Constitutional: Other (int sweats), No Fever Objective Exam General Appearance: no apparent distress, alert Neurologic Exam: oriented x 3, cooperative Skin Exam: normal color, warm, dry, No rash Ears, Nose, Throat Exam: moist mucous membranes Neck Exam: normal inspection, thyromegaly (no nodules) Respiratory Exam: normal breath sounds, lungs clear, No crackles/rales, No rhonchi, No wheezing Cardiovascular Exam: regular rate/rhythm, normal heart sounds, No murmur Extremity Exam: other (R knee medially with approx 3x3cm erythematous nodule. indurated. very ttp. very mild surrounding erythema) OBJECTIVE DATA Vital Signs: Vital Signs - 24 hr Temp Pulse Resp BP Pulse Ox 01/14/18 07:24 64 16 96 01/14/18 04:00 97.7 F 55 L 16 94/62 96 01/14/18 00:00 66 19 118/65 97 01/13/18 19:53 98.6 F 68 20 102/58 97 01/13/18 16:00 97.9 F 68 18 89/54 95 01/13/18 12:50 66 18 96 01/13/18 11:30 98.0 F 61 18 87/55 95 Oxygen-Last 24 hours O2 Percentage 4 Liters = 36% O2 Percentage 4 Liters = 36% O2 Percentage 4 Liters = 36% O2 Percentage 4 Liters = 36% O2 Percentage 4 Liters = 36% Pain Assessment - Last Documented Pain Intensity 8 Pain Scale Used 0-10 Pain Scale Intake and Output: Intake & Output 01/11/18 01/12/18 01/13/18 01/14/18 11:59 11:59 11:59 11:59 Intake Total 2871 4387 6031 2731 Output Total 2200 Balance 671 4387 6031 2731 Weight 90.8 kg Lab Results: Accuchecks Date 01/14/18 Date 01/13/18 Date 01/13/18 Date 01/13/18 Time 07:30 Time 21:00 Time 16:40 Time 11:30 Accucheck Value: 141 Accucheck Value: 143 Accucheck Value: 104 Lab Results-Last 24 Hours 01/14/18 Range/Units 05:30 Vancomycin Trough 19.57 (10-20) ug/mL Radiology Exams: Radiology Procedures Category Date Time Status VENOUS BILATERAL EXTREMITY [US] Stat Exams 01/13/18 13:04 Completed Assessment/Plan (1) Cellulitis Current Visit: Yes Status: Acute Onset Date: ~01/10/18 Qualifiers: Site of cellulitis: extremity Site of cellulitis of extremity: lower extremity Laterality: right Qualified Code(s): L03.115 - Cellulitis of right lower limb Assessment & Plan: R knee. Culture pending. Will likely be able to send home tomorrow on po antibiotics. Code(s): L03.90 - CELLULITIS, UNSPECIFIED (2) Chest pain Current Visit: Yes Status: Chronic Qualifiers: Chest pain type: other chest pain Qualified Code(s): R07.89 - Other chest pain; R07.8 - Other chest pain Assessment & Plan: ruled out for CT and neg for PE. She continues to have some but this is not her main complaint. Code(s): R07.9 - CHEST PAIN, UNSPECIFIED (3) Failure of outpatient treatment Current Visit: Yes Status: Acute Onset Date: ~01/10/18 Code(s): Z78.9 - OTHER SPECIFIED HEALTH STATUS (4) Spider bite wound Current Visit: Yes Status: Acute Onset Date: ~01/10/18 Qualifiers: Encounter type: subsequent encounter Injury intent: accidental or unintentional Qualified Code(s): T63.301D - Toxic effect of unspecified spider venom, accidental (unintentional), subsequent encounter Code(s): T63.301A - TOXIC EFFECT OF UNSP SPIDER VENOM, ACCIDENTAL, INIT (5) Depression Current Visit: No Status: Chronic Qualifiers: Depression Type: major depressive disorder Active/Remission status: currently active Major depression episode severity: moderate Code(s): F32.9 - MAJOR DEPRESSIVE DISORDER, SINGLE EPISODE, UNSPECIFIED (6) Diabetes type 2, controlled Current Visit: No Status: Chronic Qualifiers: 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 insulin use: with detention use Diabetes mellitus complication status: with neurologic complications Diabetes mellitus complication detail: with polyneuropathy Qualified Code(s): E11.42 - Type 2 diabetes mellitus with diabetic polyneuropathy; Z79.4 - housekeeper (current) use of insulin; Z79.4 - housekeeper (current) use of insulin; Z79.4 - housekeeper ( current) use of insulin; Z79.4 - penitentiary (current) use of insulin Code(s): E11.9 - TYPE 2 DIABETES MELLITUS WITHOUT COMPLICATIONS (7) Memory deficit Current Visit: Yes Status: Acute Code(s): R41.3 - OTHER AMNESIA (8) Thyromegaly Current Visit: Yes Status: Acute Assessment & Plan: recheck u/s. TSH nl this stay. Code(s): E01.0 - IODINE-DEFICIENCY RELATED DIFFUSE (ENDEMIC) GOITER
[2018-01-14] MEDS: Protonix 40MG Tablet PO SCH (09:14)
[2018-01-14] MEDS: ZOLOFT 50 MG TABLET PO SCH (09:14)
[2018-01-14] MEDS: Cyclobenzaprine 10 MG PO SCH (09:14)
[2018-01-14] MEDS: MAG-OX 400 PO SCH (09:14)
[2018-01-14] MEDS: PLAVIX 75 MG Tablet PO SCH (09:14)
[2018-01-14] MEDS: SYNTHROID 100 MCG PO SCH (09:14)
[2018-01-14] MEDS: CLARITIN 10 MG PO SCH (09:14)
[2018-01-14] MEDS: SENOKOT 8.6 MG PO PRN (09:14)
[2018-01-14] MEDS: Neurontin 400 MG PO SCH ×4 (09:15→21:18)
[2018-01-14] MEDS: lamICTAL 100MG TABLET PO SCH ×2 (09:15→21:17)
[2018-01-14] MEDS: ENOXAPARIN SODIUM SQ SCH (09:16)
[2018-01-14] MEDS: ESTRACE 1 MG PO SCH (10:03)
--- NOTE | 2018-01-14 10:06 | XRAY ---
Indication: Trouble swallowing. Thyromegaly. Two-dimensional thyroid sonogram performed. Comparison: September 30, 2015 and July 10, 2016. Right lobe measures 4.6 x 1.4 x 1.0 cm and the left lobe measures 4.1 x 1.2 x 0.8 cm. Isthmus measures 2.7 mm in thickness. Thyroid parenchyma remains homogeneous again without focal solid/cystic mass. Impression: Stable negative thyroid sonogram.
[2018-01-14 14:05] LABS: RPR Screen Non Reactive (Non Reactive)
[2018-01-14] MEDS: Lactated Ringers 1,000 ML IV SCH (14:20)
[2018-01-14] MEDS: VANCOCIN 1 GM VIAL*** 1.5 GM in Sodium Chloride 0.9% 500 ML 500 ML IV SCH (17:50)
[2018-01-14] MEDS ORDERED: VANCOCIN 1 GM VIAL*** 1.5 GM in Sodium Chloride 0.9% 250 ML 250 ML IV SCH (18:00)
[2018-01-14] MEDS: ZOCOR 20MG PO SCH (21:17)
[2018-01-14] MEDS: Cardizem CD 180 MG PO SCH (21:17)
[2018-01-14] MEDS: Desyrel 150 MG PO SCH (21:18)
[2018-01-15] MEDS: OXYCODONE-ACETAMINOPHEN 10-325 PO PRN (03:28)
[2018-01-15] MEDS: VANCOCIN 1 GM VIAL*** 1.5 GM in Sodium Chloride 0.9% 500 ML 500 ML IV SCH (06:40)
--- NOTE | 2018-01-15 08:38 | PCM.DS ---
Discharge Summary Date of Admission: 01/10/18 11:18 Admitting Physician: ERICA BROCK Primary Care Provider: ERICA BROCK Allergies Allergies aspirin Allergy (Mild, Verified 01/08/18 00:49) Nausea and Vomiting codeine [Codeine] Allergy (Mild, Verified 01/08/18 00:49) Itching fluoxetine HCl [From Prozac] Allergy (Mild, Verified 01/08/18 00:49) confusion , "jumped out of a moving truck" Penicillins Allergy (Mild, Verified 01/08/18 00:49) Nausea and Vomiting promethazine HCl [From Phenergan] Allergy (Mild, Verified 01/08/18 00:49) tremors clindamycin Adverse Reaction (Verified 01/08/18 00:49) doxycycline hyclate [From Vibra-Tabs] Adverse Reaction (Verified 01/08/18 00:49) sulfamethoxazole [From Bactrim] Adverse Reaction (Verified 01/08/18 00:49) trimethoprim [From Bactrim] Adverse Reaction (Verified 01/08/18 00:49) steroid from breathing treatment Allergy (Mild, Uncoded 11/21/17 01:42) Blisters Hospital Summary - Hospital Course Hospital Course: Pt admitted through office with abscess on her R lateral knee; failed outpatient antibiotics. Was placed on IV vancomycin with improvement. However the abscess is persistent. Will attempt to halima it later on this morning before discharging to home. One evening she had chest pain with elevated d-dimer; CT chest neg for PE and troponins negative. Has been tolerating po well. Still c/o pain in the leg. She c/o some trouble swallowing; had some thyromegaly. Her U/S thyroid was nl. - Vitals & Intake/Output Vital Signs: Vital Signs Temperature 98.6 F 01/15/18 07:45 Pulse Rate 68 01/15/18 07:45 Respiratory Rate 16 01/15/18 07:45 Blood Pressure 106/53 01/15/18 07:45 O2 Sat by Pulse Oximetry 95 01/15/18 07:45 Oxygen-Last Documented O2 Percentage 4 Liters = 36% Intake & Output: Intake & Output 01/12/18 01/13/18 01/14/18 01/15/18 11:59 11:59 11:59 11:59 Intake Total 4387 9894 6436 7741 Balance 4387 6031 2731 3221 - Lab Result Diagrams: 01/13/18 05:30 01/13/18 05:30 Lab Results-Last 24 Hrs: Accuchecks Date 01/15/18 Date 01/14/18 Date 01/14/18 Date 01/14/18 Time 07:30 Time 21:00 Time 16:00 Time 11:30 Accucheck Value: 125 Accucheck Value: 113 Accucheck Value: 112 Accucheck Value: 126 Lab Results-Last 24 Hours 01/12/18 Range/Units 05:35 RPR w/Rflx to Titer Non Reactive (Non Reactive) Micro Results-Entire Visit: Microbiology 01/12/18 11:35 Wound Culture - Final Leg - Right Methicillin Resist Staph Aur Accuchecks Date 01/15/18 Date 01/14/18 Date 01/14/18 Date 01/14/18 Time 07:30 Time 21:00 Time 16:00 Time 11:30 Accucheck Value: 125 Accucheck Value: 113 Accucheck Value: 112 Accucheck Value: 126 - Radiology Exams Ordered Rad Exams-Entire Visit: Radiology Procedures Category Date Time Status THYROID [US] Routine Exams 01/14/18 09:40 Completed VENOUS BILATERAL EXTREMITY [US] Stat Exams 01/13/18 13:04 Completed - Procedures and Test Procedures and Tests throughout Hospitalization: Therapy Orders & Screens 01/10/18 11:35 PT Eval & Treat (MD Order) ROUTINE Reason for Eval:: wound care Diagnosis: cellulitis,spider bite, failed outpatient 01/10/18 15:58 Oxygen NASAL CANNULA 5 lpm Comment: Diagnosis: cellulitis,spider bite, failed outpatient Respiratory MDI UD Comment: ALBUTEROL MDI Q4PRN Diagnosis: cellulitis,spider bite, failed outpatient Respiratory Therapy Assessment DAILY Comment: Diagnosis: cellulitis,spider bite, failed outpatient 01/11/18 04:15 Respiratory Nebulizer PRN Comment: ALBUTEROL Q4PRN FOR SOB/WHEEZING Diagnosis: cellulitis,spider bite, failed outpatient 01/11/18 04:20 EKG STAT Comment: Diagnosis: cellulitis,spider bite, failed outpatient 01/11/18 04:34 Peak Expiratory Flow Rate ONCE Comment: Reason For Exam: Diagnosis: cellulitis,spider bite, failed outpatient Discharge Exam General Appearance: no apparent distress, alert Neurologic Exam: oriented x 3, cooperative Skin Exam: normal color, warm, dry, No rash Eye Exam: eyes nml inspection Ears, Nose, Throat Exam: moist mucous membranes Respiratory Exam: normal breath sounds, lungs clear, No crackles/rales, No rhonchi, No wheezing Cardiovascular Exam: regular rate/rhythm, normal heart sounds, No murmur Gastrointestinal/Abdomen Exam: soft, normal bowel sounds, tenderness (LLQ), No distention, No mass, No guarding, No rebound Extremity Exam: other (R LE, lateral to knee with approx 4cm induration and erythema, ttp) Final Diagnosis/Problem List - Final Discharge Diagnosis/Problem (1) Abscess Current Visit: Yes Status: Acute Assessment & Plan: On IV vancomycin. Culture + MRSA. Will attempt to halima this afternoon and discharge to home afterward. (2) Cellulitis Current Visit: Yes Status: Acute Onset Date: ~01/10/18 (3) Chest pain Current Visit: Yes Status: Chronic Assessment & Plan: Does chronically have issues; sees Dr. Armando. Will need to f/u with him outpatient. (4) Failure of outpatient treatment Current Visit: Yes Status: Acute Onset Date: ~01/10/18 (5) Spider bite wound Current Visit: Yes Status: Acute Onset Date: ~01/10/18 (6) Depression Current Visit: No Status: Chronic (7) Diabetes type 2, controlled Current Visit: No Status: Chronic (8) Memory deficit Current Visit: Yes Status: Acute (9) Thyromegaly Current Visit: Yes Status: Acute Assessment & Plan: u/s neg. - Discharge Disposition: Home, Self-Care Condition: Stable Prescriptions: No Action Simvastatin [Zocor] 20 mg PO HS Levothyroxine Sodium 100 Mcg [Synthroid 100 Mcg] 100 mcg PO QAM Diltiazem HCl [Cartia Xt] 180 mg PO QPM Clopidogrel Bisulfate 75 mg [PLAVIX 75 MG Tablet] 75 mg PO DAILY Cyclobenzaprine HCl 10 mg [Cyclobenzaprine 10 MG] 10 mg PO DAILY Lamotrigine 100 mg [lamICTAL 100MG TABLET] 200 mg PO BID Bumetanide 1 mg [Bumex 1 mg] 1 mg PO DAILY #30 tablet Diazepam 5 mg [Valium 5 MG] 5 mg PO TIDPRN Trazodone HCl [Oleptro ER] 150 mg PO HS Omeprazole 20 MG [Prilosec 20 mg] 20 mg PO DAILY Sucralfate 1 gm [Carafate 1 GM] 1 g PO ACHS #28 tablet Albuterol Sulfate [Ventolin Hfa] 8 gm IH Q4HPRN PRN PRN Reason: Shortness Of Breath/Wheezing Sertraline HCl 50 mg [Zoloft 50 mg Tablet] 50 mg PO DAILY Loratadine 10 mg [Claritin 10 mg] 10 mg PO DAILY Estradiol 0.5 mg PO DAILY Potassium Chloride [K-Dur] 20 meq PO DAILY Oxycodone / APAP 10/325 mg [Oxycodone-Acetaminophen 10-325] 1 tab PO Q4 -6HPRN PRN PRN Reason: Pain Magnesium Oxide 400 mg PO DAILY Gabapentin 800 mg PO QID Naproxen 500 mg [Naprosyn 500 MG] 500 mg PO [id number] PRN PRN Reason: Pain Ondansetron ODT 4 MG [Zofran Odt 4 mg] 4 mg PO Q6H PRN PRN #10 tab.rapdis PRN Reason: Nausea/Vomiting Liraglutide [Victoza 2-Jacob] 1.2 mg SQ DAILY Follow up with: ERICA BROCK [Primary Care Provider] - 01/22/18 10:15 am
[2018-01-15] MEDS: SENOKOT 8.6 MG PO PRN (09:19)
[2018-01-15] MEDS: Colace 100 MG PO SCH (09:19)
[2018-01-15] MEDS: Cyclobenzaprine 10 MG PO SCH (09:19)
[2018-01-15] MEDS: ZOLOFT 50 MG TABLET PO SCH (09:19)
[2018-01-15] MEDS: PLAVIX 75 MG Tablet PO SCH (09:19)
[2018-01-15] MEDS: CLARITIN 10 MG PO SCH (09:19)
[2018-01-15] MEDS: Protonix 40MG Tablet PO SCH (09:19)
[2018-01-15] MEDS: MAG-OX 400 PO SCH (09:20)
[2018-01-15] MEDS: lamICTAL 100MG TABLET PO SCH (09:20)
[2018-01-15] MEDS: SYNTHROID 100 MCG PO SCH (09:20)
[2018-01-15] MEDS: ESTRACE 1 MG PO SCH (09:20)
[2018-01-15] MEDS: ENOXAPARIN SODIUM SQ SCH (09:20)
[2018-01-15] MEDS: Neurontin 400 MG PO SCH ×2 (09:21→13:17)
[2018-01-15 11:44] VITALS: BP 98/55; PULSE 60; O2SAT 94
[2018-01-15] MEDS ORDERED: MORPHINE SULFATE 10 MG/ML IV ONE (13:30)
[2018-01-15] MEDS ORDERED: EMLA Cream 5 GM TP ONE (13:49)
[2018-01-15] MEDS ORDERED: Xylocaine 1% Vial 30 ML PF IJ ONE (13:52)
--- NOTE | 2018-01-15 15:11 | PCM.DCORD ---
- Discharge Disposition: Home, Self-Care Condition: Stable Prescriptions: New Ciprofloxacin [Cipro 500 MG] 500 mg PO BID #20 tablet Continue Simvastatin [Zocor] 20 mg PO HS Levothyroxine Sodium 100 Mcg [Synthroid 100 Mcg] 100 mcg PO QAM Diltiazem HCl [Cartia Xt] 180 mg PO QPM Clopidogrel Bisulfate 75 mg [PLAVIX 75 MG Tablet] 75 mg PO DAILY Cyclobenzaprine HCl 10 mg [Cyclobenzaprine 10 MG] 10 mg PO DAILY Lamotrigine 100 mg [lamICTAL 100MG TABLET] 200 mg PO BID Bumetanide 1 mg [Bumex 1 mg] 1 mg PO DAILY #30 tablet Diazepam 5 mg [Valium 5 MG] 5 mg PO TIDPRN Omeprazole 20 MG [Prilosec 20 mg] 20 mg PO DAILY Sucralfate 1 gm [Carafate 1 GM] 1 g PO ACHS #28 tablet Albuterol Sulfate [Ventolin Hfa] 8 gm IH Q4HPRN PRN PRN Reason: Shortness Of Breath/Wheezing Sertraline HCl 50 mg [Zoloft 50 mg Tablet] 50 mg PO DAILY Loratadine 10 mg [Claritin 10 mg] 10 mg PO DAILY Estradiol 0.5 mg PO DAILY Potassium Chloride [K-Dur] 20 meq PO DAILY Oxycodone / APAP 10/325 mg [Oxycodone-Acetaminophen 10-325] 1 tab PO Q4 -6HPRN PRN PRN Reason: Pain Magnesium Oxide 400 mg PO DAILY Gabapentin 800 mg PO QID Naproxen 500 mg [Naprosyn 500 MG] 500 mg PO [id number] PRN PRN Reason: Pain Liraglutide [Victoza 2-Jacob] 1.2 mg SQ DAILY Discontinued Trazodone HCl [Oleptro ER] 150 mg PO HS Ondansetron ODT 4 MG [Zofran Odt 4 mg] 4 mg PO Q6H PRN PRN #10 tab.rapdis PRN Reason: Nausea/Vomiting Additional Instructions: DO NOT take trazodone or zofran until you are finished with the ciprofloxacin ( there is a potentially dangerous medication interaction). Take the cipro until gone, even if you see improvement after just a few days. Call, return to office, or go to [facility] for any fever over 100F, feeling ill, increased pain or redness in the leg, or vomiting. Follow up with: ERICA BROCK [Primary Care Provider] - 01/22/18 10:15 am
== END 2018-01-15 16:20 | disposition home or self-care (01) | DRG 603 ==
LOC: MED SURG 11:18
PROVIDERS: ADMIT Family Medicine; ATTEND Family Medicine
DX: L02.415 Cutaneous abscess of right lower limb (principal); R41.4 Neurologic neglect syndrome; L03.115 Cellulitis of right lower limb; B95.62 Methicillin resistant Staphylococcus aureus infection as the cause of diseases classified elsewhere; R07.9 Chest pain, unspecified; Z78.9 Other specified health status; T63.301A Toxic effect of unspecified spider venom, accidental (unintentional), initial encounter; F32.9 Major depressive disorder, single episode, unspecified; E11.9 Type 2 diabetes mellitus without complications; Z79.4 Long term (current) use of insulin; K59.00 Constipation, unspecified; E01.0 Iodine-deficiency related diffuse (endemic) goiter; M79.604 Pain in right leg; Z79.899 Other long term (current) drug therapy; E03.9 Hypothyroidism, unspecified
CPT/HCPCS: 36415; 71045; 71260; 76536; 80048; 80053; 80202; 81002; 83036; 84443; 84484; 85025; 85027; 85379; 86592; 86593; 86780; 87040; 87070; 87077; 87186; 93005; 93970; 94150; 94640; 94760; 94762; 96365; 99284; 99285; J1650; J2001; J2270; J3010; J3370; J7609; A9270-GY

== ENCOUNTER 2018-03-28 18:32 | Emergency (ER) | payer OTHER ==
[2018-03-28 18:52] VITALS: BP 133/89
[2018-03-28] MEDS ORDERED: DUONEB 0.5-3 MG/3 ml Neb IH ONE ×2 (19:03→19:08)
--- NOTE | 2018-03-28 19:12 | ERPHSYRPT ---
- History of Present Illness Time Seen by Provider: 03/28/18 18:50 Source: patient Exam Limitations: no limitations Patient Subjective Stated Complaint: Pt states "I have had diarrhea and a cough for two weeks and it is not getting any better. I think I have pneumonia." Triage Nursing Assessment: Pt alert and oriented X 3, skin pwd. Pt ambulates with an upright steady gait, able to speakin clear full sentences. Pt has intermittant dry cough, rhochi noted in all lung tovar. Physician History: 42 y/o white female with h/o copd and recurrent chronic bronchitis presents with coughing for 2 weeks. pt sx worsening. pt on chronic oxygen 4 liters nc at home. pt concerned she might have a pneumonia. pt is allergic to oral steroids but can take injectable steroids. pt cannot take rocephin but can take keflex. she cannot take amoxicillin or codeine. she can take hydrocodone. she can take z pack. pt has been using her albuterol inhaler but not her svns as prescribed. Activities at Onset: none Severity of Dyspnea-Max: mild Severity of Dyspnea-Current: mild Possible Cause: occasional episodes Modifying Factors: Improves With: coughing Associated Symptoms: intermittent, cough, wheezing Allergies/Adverse Reactions: aspirin Allergy (Mild, Verified 01/08/18 00:49) Nausea and Vomiting codeine [Codeine] Allergy (Mild, Verified 01/08/18 00:49) Itching fluoxetine HCl [From Prozac] Allergy (Mild, Verified 01/08/18 00:49) confusion , "jumped out of a moving truck" Penicillins Allergy (Mild, Verified 01/08/18 00:49) Nausea and Vomiting promethazine HCl [From Phenergan] Allergy (Mild, Verified 01/08/18 00:49) tremors clindamycin Adverse Reaction (Verified 01/08/18 00:49) doxycycline hyclate [From Vibra-Tabs] Adverse Reaction (Verified 01/08/18 00:49) sulfamethoxazole [From Bactrim] Adverse Reaction (Verified 01/08/18 00:49) trimethoprim [From Bactrim] Adverse Reaction (Verified 01/08/18 00:49) steroid from breathing treatment Allergy (Mild, Uncoded 11/21/17 01:42) Blisters Home Medications: Diltiazem HCl [Cartia Xt] 180 mg PO QPM 09/27/14 [History] Levothyroxine Sodium 100 Mcg [Synthroid 100 Mcg] 100 mcg PO QAM 09/27/14 [ History] Simvastatin [Zocor] 20 mg PO HS 09/27/14 [History] Clopidogrel Bisulfate 75 mg [PLAVIX 75 MG Tablet] 75 mg PO DAILY 04/05/15 [History] Cyclobenzaprine HCl 10 mg [Cyclobenzaprine 10 MG] 10 mg PO DAILY 07/16/15 [History] Lamotrigine 100 mg [lamICTAL 100MG TABLET] 200 mg PO BID 09/27/15 [History ] Diazepam 5 mg [Valium 5 MG] 5 mg PO TIDPRN 02/14/16 [History] Omeprazole 20 MG [Prilosec 20 mg] 20 mg PO DAILY 04/20/16 [History] Albuterol Sulfate [Ventolin Hfa] 8 gm IH Q4HPRN PRN 12/21/16 [History] Sertraline HCl 50 mg [Zoloft 50 mg Tablet] 50 mg PO DAILY 12/21/16 [History] Loratadine 10 mg [Claritin 10 mg] 10 mg PO DAILY 07/30/17 [History] Potassium Chloride [K-Dur] 20 meq PO DAILY 08/03/17 [History] Gabapentin 800 mg PO QID 09/10/17 [History] Magnesium Oxide 400 mg PO DAILY 09/10/17 [History] Oxycodone / APAP 10/325 mg [Oxycodone-Acetaminophen 10-325] 1 tab PO Q4- 6HPRN PRN 09/10/17 [History] Liraglutide [Victoza 2-Jacob] 1.2 mg SQ DAILY 01/05/18 [History] Hx Tetanus, Diphtheria Vaccination/Date Given: Yes Hx Influenza Vaccination/Date Given: Yes Hx Pneumococcal Vaccination/Date Given: Yes Immunizations Up to Date: Yes - Review of Systems Constitutional: No Symptoms, No Fever Eyes: No Symptoms Ears, Nose, & Throat: No Symptoms Respiratory: Cough, Dyspnea, Wheezing, No Stridor Cardiac: No Symptoms, No Chest Pain, No Palpitations, No Syncope Abdominal/Gastrointestinal: Diarrhea (occasional within last 2 weeks), No Abdominal Pain, No Nausea, No Vomiting Genitourinary Symptoms: No Symptoms, No Dysuria, No Frequency, No Hematuria Musculoskeletal: No Symptoms Skin: No Symptoms Neurological: No Symptoms Psychological: No Symptoms Endocrine: No Symptoms Hematologic/Lymphatic: No Symptoms Immunological/Allergic: No Symptoms All Other Systems: Reviewed and Negative - Past Medical History Pertinent Past Medical History: Yes Neurological History: Epilepsy, Seizures, Stroke ENT History: No Pertinent History Cardiac History: Arrhythmia, Congestive Heart Failure, Deep Vein Thrombosis, Hypertension Respiratory History: Bronchitis, CHF, Pulmonary Embolism, Other Endocrine Medical History: Diabetes Type II, Hypothyroidism Musculoskeletal History: Other GI Medical History: GERD, Hernia, Ulcer History: No Pertinent History Psycho-Social History: Anxiety, Bipolar, Depression, Panic Disorder Female Reproductive Disorders: Endometriosis Other Medical History: Mitral valve prolapse with regurgitation, pt wears 4 L N/ C at all times - Past Surgical History Past Surgical History: Yes Neuro Surgical History: No Pertinent History Cardiac: Cardiac Catheterization Respiratory: No Pertinent History Gastrointestinal: Cholecystectomy, Hernia Repair Genitourinary: No Pertinent History Musculoskeletal: Joint Replacement, Orthopedic Surgery Female Surgical History: Hysterectomy, Dilation & Curettage Other Surgical History: torn miniscus and implant-RT KNEE" partial scope replacement", oral surgery, melanoma removed for face twice, port placement twice with one removal. - Social History Smoking Status: Former smoker How long have you smoked: 15 years Exposure to second hand smoke: Yes Alcohol Use: None Drug Use: none Patient Lives Alone: No Significant Family History: no pertinent family hx, heart disease, diabetes, hypertension - Female History Hx Last Menstrual Period: complete hysterectomy Hx Now: No - Nursing Vital Signs Nursing Vital Signs: Initial Vital Signs Temperature 99.0 F 03/28/18 18:46 Pulse Rate 94 H 03/28/18 18:46 Respiratory Rate 22 03/28/18 18:46 Blood Pressure 133/89 03/28/18 18:46 O2 Sat by Pulse Oximetry 99 03/28/18 18:46 Pain Scale Pain Intensity 7 - Physical Exam General Appearance: mild distress, alert Eye Exam: PERRL/EOMI Ears, Nose, Throat Exam: hearing grossly normal Neck Exam: normal inspection, non-tender, supple, full range of motion Respiratory Exam: chest tenderness (with cough only), airway intact, rhonchi, wheezing, No normal breath sounds, No respiratory distress, No accessory muscle use, No stridor Cardiovascular/Chest Exam: normal heart sounds, regular rate/rhythm, normal peripheral pulses Abdominal/Gastrointestinal Exam: soft, normal bowel sounds, No tenderness, No guarding, No rebound Rectal Exam: not done Extremity Exam: non-tender, normal range of motion, normal inspection Neurologic Exam: alert, oriented x 3, cooperative, workday consultant II-XII nml as tested Skin Exam: normal color, warm, dry Lymphatic Exam: No adenopathy SpO2 Interpretation: normal SpO2: 99 (4 liter) Oxygen Delivery: Nasal Cannula - Course Nursing assessment & vital signs reviewed: Yes Ordered Tests: Active Orders 24 hr Category Date Time Status Nba Player STAT Care 03/28/18 19:14 Active Pulse Oximetry (ED) STAT Care 03/28/18 19:14 Active CHEST 1 VIEW (PORTABLE) Stat Exams 03/28/18 19:30 Taken Respiratory Therapy Assessment DAILY RT 03/28/18 19:17 Active Medication Summary Generic Name Dose Route Start Last Admin Trade Name Freq PRN Reason Stop Dose Admin Levofloxacin 500 mg 03/28/18 20:02 Levofloxacin 250mg Tablet PO 03/28/18 20:03 STAT ONE Discontinued Medications Generic Name Dose Route Start Last Admin Trade Name Freq PRN Reason Stop Dose Admin Hydrocodone Bitart/Acetaminophen 15 ml 03/28/18 19:25 03/28/18 19:37 Hydrocodone-Acetamin 2.5-108/5 Ml Solution PO 03/28/18 19:26 15 ml STAT STA Administration Hydrocodone Bitart/Acetaminophen Confirm 03/28/18 19:37 Hydrocodone-Acetamin 2.5-108/5 Ml Solution Administered 03/28/18 19:38 Dose 15 ml .ROUTE .STK-MED ONE Albuterol/Ipratropium Confirm 03/28/18 19:03 Duoneb 0.5-3 Mg/3 Ml Neb Administered 03/28/18 19:04 Dose 3 ml IH .STK-MED ONE Albuterol/Ipratropium 3 ml 03/28/18 19:08 03/28/18 19:11 Duoneb 0.5-3 Mg/3 Ml Neb IH 03/28/18 19:09 3 ml STAT ONE Administration Methylprednisolone Sodium Succinate 125 mg 03/28/18 19:14 03/28/18 19:31 Solu-Medrol 125 Mg IM 03/28/18 19:15 125 mg STAT ONE Administration Methylprednisolone Sodium Succinate Confirm 03/28/18 19:27 Solu-Medrol 125 Mg Administered 03/28/18 19:28 Dose 125 mg .ROUTE .STK-MED ONE Lab/Rad Data: cxr-left lower lobe early infiltrate vs atelectasis - Progress Progress: improved Air Movement: good Progress Note: 03/28/18 20:00 pt states she is feeling better. she states she is not allergic to levaquin Blood Culture(s) Obtained: No Antibiotics given: Yes Counseled pt/family regarding: diagnosis, need for follow-up, rad results - Departure Time of Disposition: 20:01 Departure Disposition: Home Clinical Impression: Pulmonary infiltrate Condition: Stable Critical Care Time: No Referrals: ERICA BROCK [Primary Care Provider] - Additional Instructions: drink plenty of fluids. use your inhalers every 4 hours while awake for next 2 to 3 days. follow up with primary doctor for further management Prescriptions: Hydrocodone Bit/Acetaminophen [Hydrocodone-Acetaminophen Soln] 10 ml PO Q6H # 120 ml Levofloxacin [Levaquin 500 MG Tablet] 500 mg PO DAILY #7 tablet
[2018-03-28] MEDS ORDERED: solu-MEDROL 125 MG IM ONE (19:14)
[2018-03-28] MEDS ORDERED: HYDROCODONE-ACETAMIN 2.5-108/5 ML SOLUTION PO STA (19:25)
[2018-03-28 19:26] VITALS: PULSE 89
[2018-03-28] MEDS ORDERED: solu-MEDROL 125 MG ONE (19:27)
[2018-03-28] MEDS ORDERED: HYDROCODONE-ACETAMIN 2.5-108/5 ML SOLUTION ONE (19:37)
[2018-03-28] MEDS ORDERED: Levofloxacin 250MG Tablet PO ONE (20:02)
[2018-03-28] MEDS ORDERED: Levofloxacin 250MG Tablet ONE ×2 (20:24→20:28)
[2018-03-28 21:21] VITALS: O2SAT 98
--- NOTE | 2018-03-29 09:13 | XRAY ---
Indication: Short of breath and cough. Comparison: January 11, 2018. Portable chest unchanged again slightly underinflated with bibasilar atelectasis and Port-A-Cath coiled over the right lung base. Remaining heart, lungs, and bony thorax normal.
== END 2018-03-28 21:21 | disposition home or self-care (01) ==
LOC: ED 18:32
DX: R91.8 Other nonspecific abnormal finding of lung field (principal); R05 Cough; R19.7 Diarrhea, unspecified; Z79.01 Long term (current) use of anticoagulants; Z79.899 Other long term (current) drug therapy; Z99.81 Dependence on supplemental oxygen
CPT/HCPCS: 71045; 93041; 94640; 96372; 99284; J2930; A9270-GY

== ENCOUNTER 2018-04-05 10:32 | Observation (INO) | payer OTHER ==
[2018-04-05] MEDS ORDERED: PROVENTIL 2.5 MG/3 ML NEB IH PRN (15:58)
[2018-04-05] MEDS ORDERED: Sodium Chloride 0.9% 500 ML 500 ML IV SCH (16:00)
[2018-04-05 16:27] LABS: BASOPHIL % 0.3 % (0.0-0.4); Basophil (Absolute #) 0.02 (0-0.4); Eosinophil % 9.3 % (0.00-5.0); Eosinophil (Absolute #) 0.73 (0-0.5); Granulocytes % 53.6 % (36.0-66.0); Hematocrit 36.5 % (35-47); Hemoglobin 11.4 gm/dl (12.0-16.0); Lymphocyte (Absolute #) 2.22 (1.0-4.6); Lymphocytes % 28.3 % (24.0-44.0); Mean Corpuscular Hemoglobin 27.8 pg (26-32); Mean Corpuscular Hgb Concent. 31.2 g/dl (32-36); Mean Platelet Volume 10.4 fl (6-9.5); Monocyte (Absolute #) 0.67 (0.0-1.3); Monocytes % 8.5 % (0.0-12.0); Platelet Count 184 K/mm3 (150-450); Red Cell Distribution Width 14.6 % (11.5-14.0); White Blood Count 7.8 K/mm3 (4.0-10.5)
[2018-04-05 16:43] LABS: ALBUMIN 4.3 g/dL (3.5-5.0); ALKALINE PHOSPHATASE 114 U/L (38-126); ANION GAP 9.2 MEQ/L (5-15); BLOOD UREA NITROGEN 13 mg/dL (7-17); CHLORIDE 102 mmol/L (98-107); Calcium 9.7 mg/dL (8.4-10.2); Carbon Dioxide 33 mmol/L (22-30); Creatinine 1 0.73 mg/dL (0.52-1.04); Glucose 91 mg/dL (74-106); Potassium 4.6 mmol/L (3.5-5.1); SGOT/AST 26 U/L (14-36); SGPT/ALT 20 U/L (0-35); SODIUM 140 mmol/L (137-145); Total Protein 7.2 g/dL (6.3-8.2)
[2018-04-05] MEDS ORDERED: NON-FORMULARY ITEM (Hydrocodone Bit/Acetaminophen [Hydrocodone-Acetaminophen Soln] 10 ML) PO SCH (17:15)
[2018-04-05] MEDS ORDERED: Valium 5 MG PO PRN (17:15)
[2018-04-05] MEDS: Lactated Ringers 1,000 ML IV SCH (17:56)
[2018-04-05] MEDS: ROCEPHIN 1 Gm-D5w 50 ml Bag** 1 G/50 ML IVPB IV SCH (17:56)
[2018-04-05] MEDS: NORCO 7.5/325 MG TAB PO SCH (17:57)
[2018-04-05] MEDS: ENOXAPARIN SODIUM SQ SCH (17:57)
[2018-04-05] MEDS: Zithromax 500 MG/ 250 ML NaCl Premix 500 MG/250 ML IVPB IV SCH (18:38)
[2018-04-05] MEDS: PROVENTIL 2.5 MG/3 ML NEB IH SCH ×2 (19:19→23:07)
[2018-04-05] MEDS: Carafate 1 GM PO SCH (22:01)
[2018-04-05] MEDS: lamICTAL 100MG TABLET PO SCH (22:02)
[2018-04-05] MEDS: OXYCODONE-ACETAMINOPHEN 10-325 PO PRN (22:02)
[2018-04-05] MEDS: ZOLOFT 50 MG TABLET PO SCH (22:02)
[2018-04-05] MEDS: ZOCOR 20MG PO SCH (22:02)
[2018-04-05] MEDS: Neurontin 400 MG PO SCH (22:02)
[2018-04-05] MEDS: Cardizem CD 180 MG PO SCH (22:02)
--- NOTE | 2018-04-05 22:07 | XRAY ---
Indication: COPD exacerbation. Comparison: March 28, 2018. PA/lateral chest underinflated more than before. Again right base subsegmental atelectasis/scarring and Port-A-Cath coiled over the right lung base. Heart is not enlarged. No new/acute findings. Comment: Preliminary interpretation was made by [facility]. No discrepancy.
[2018-04-06] MEDS: NORCO 7.5/325 MG TAB PO SCH ×4 (00:59→18:40)
[2018-04-06] MEDS: PROVENTIL 2.5 MG/3 ML NEB IH SCH ×6 (03:26→23:03)
[2018-04-06] MEDS: OXYCODONE-ACETAMINOPHEN 10-325 PO PRN ×3 (03:47→22:07)
[2018-04-06 04:56] LABS: Appearance CLEAR (CLEAR); Bilirubin NEGATIVE (NEGATIVE); Blood NEGATIVE Ery/ul (0-5); Glucose NEGATIVE (NEGATIVE); Ketones NEGATIVE (NEGATIVE); Leukocyte Esterase NEGATIVE (NEGATIVE); Nitrite NEGATIVE (NEGATIVE); Protein,Urine Dip NEGATIVE (Negative); Specific Gravity 1.004 (1.005-1.025); Urobilinogen NEGATIVE mg/dL (0-1)
[2018-04-06] MEDS: Lactated Ringers 1,000 ML IV SCH ×2 (06:18→19:22)
[2018-04-06] MEDS: Carafate 1 GM PO SCH ×4 (06:33→22:06)
[2018-04-06] MEDS: ROCEPHIN 1 Gm-D5w 50 ml Bag** 1 G/50 ML IVPB IV SCH (09:16)
[2018-04-06] MEDS: SYNTHROID 100 MCG PO SCH (09:16)
[2018-04-06] MEDS: Cyclobenzaprine 10 MG PO SCH (09:16)
[2018-04-06] MEDS: Neurontin 400 MG PO SCH ×4 (09:16→22:06)
[2018-04-06] MEDS: lamICTAL 100MG TABLET PO SCH ×2 (09:16→22:07)
[2018-04-06] MEDS: BUMEX 1 MG PO SCH (09:16)
[2018-04-06] MEDS: Klor Con 10 MEQ PO SCH (09:16)
[2018-04-06] MEDS: PLAVIX 75 MG Tablet PO SCH (09:17)
[2018-04-06] MEDS: Protonix 40MG Tablet PO SCH (09:17)
[2018-04-06] MEDS: CLARITIN 10 MG PO SCH (09:17)
[2018-04-06] MEDS: ZOLOFT 50 MG TABLET PO SCH ×2 (09:17→22:07)
[2018-04-06] MEDS: MAG-OX 400 PO SCH (09:17)
[2018-04-06] MEDS ORDERED: NON-FORMULARY ITEM (Potassium Chloride [K-Dur] 20 MEQ) PO SCH (10:00)
[2018-04-06] MEDS: Zithromax 500 MG/ 250 ML NaCl Premix 500 MG/250 ML IVPB IV SCH (10:03)
--- NOTE | 2018-04-06 10:36 | PCM.HP ---
History of Present Illness - Chief Complaint Chief Complaint: COPD exacerbation Date: 04/06/18 History of Present Illness: is a 42 year old female. who has been feeling worse over the last 3 weeks at home with cougihng congestion and shortness of breath. She remains on 4L nc O2 all the time. She has been using her inhalers with inadequate response. She has had some hot flashes and cold chills without fever. She has decreased appetite and not drinking well. She states she is breathing better this am after treatments yesterday. She denies vomiting or diarhea. - Review of Systems Constitutional: Fever, Chills, Fatigue Eyes: No Symptoms Ears, Nose, & Throat: No Symptoms Respiratory: Cough, Short Of Breath, Wheezing Cardiac: No Chest Pain, No Edema, No Syncope Abdominal/Gastrointestinal: No Abdominal Pain, No Nausea, No Vomiting, No Diarrhea Genitourinary Symptoms: No Dysuria Musculoskeletal: No Back Pain, No Neck Pain Skin: No Rash Neurological: No Dizziness, No Focal Weakness, No Sensory Changes Psychological: No Symptoms Endocrine: No Symptoms Hematologic/Lymphatic: No Symptoms Immunological/Allergic: No Symptoms Medications & Allergies Home Medications: Home Medication List Diltiazem HCl [Cartia Xt] 180 mg PO QPM 09/27/14 [History Confirmed 04/05/18] Levothyroxine Sodium 100 Mcg [Synthroid 100 Mcg] 100 mcg PO QAM 09/27/14 [ History Confirmed 04/05/18] Simvastatin [Zocor] 20 mg PO HS 09/27/14 [History Confirmed 04/05/18] Clopidogrel Bisulfate 75 mg [PLAVIX 75 MG Tablet] 75 mg PO DAILY 04/05/15 [History Confirmed 04/05/18] Cyclobenzaprine HCl 10 mg [Cyclobenzaprine 10 MG] 10 mg PO DAILY 07/16/15 [History Confirmed 04/05/18] Lamotrigine 100 mg [lamICTAL 100MG TABLET] 200 mg PO BID 09/27/15 [ History Confirmed 04/05/18] Bumetanide 1 mg [Bumex 1 mg] 1 mg PO DAILY #30 tablet 10/02/15 [Rx Confirmed 04/05/18] Diazepam 5 mg [Valium 5 MG] 5 mg PO TIDPRN 02/14/16 [History Confirmed 07/22] Omeprazole 20 MG [Prilosec 20 mg] 20 mg PO DAILY 04/20/16 [History Confirmed 07/22] Sucralfate 1 gm [Carafate 1 GM] 1 g PO ACHS #28 tablet 10/16/16 [Rx Confirmed 04/05/18] Albuterol Sulfate [Ventolin Hfa] 8 gm IH Q4HPRN PRN 12/21/16 [History Confirmed 03/28/18] Loratadine 10 mg [Claritin 10 mg] 10 mg PO DAILY 07/30/17 [History Confirmed 04/05/18] Potassium Chloride [K-Dur] 20 meq PO DAILY 08/03/17 [History Confirmed 04/05/18] Gabapentin 800 mg PO QID 09/10/17 [History Confirmed 04/05/18] Magnesium Oxide 400 mg PO DAILY 09/10/17 [History Confirmed 04/05/18] Oxycodone / APAP 10/325 mg [Oxycodone-Acetaminophen 10-325] 1 tab PO Q4- 6HPRN PRN 09/10/17 [History Confirmed 04/05/18] Liraglutide [Victoza 2-Jacob] 1.2 mg SQ DAILY 01/05/18 [History Confirmed 04/05/18 ] Hydrocodone Bit/Acetaminophen [Hydrocodone-Acetaminophen Soln] 10 ml PO Q6H # 120 ml 03/28/18 [Rx Confirmed 04/05/18] Sertraline HCl 50 mg [Zoloft 50 mg Tablet] 100 mg PO BID 04/05/18 [History Confirmed 04/05/18] Allergies/Adverse Reactions: Allergies Allergy/AdvReac Type Severity Reaction Status Date / Time aspirin Allergy Mild Nausea and Verified 01/08/18 00:49 Vomiting codeine [Codeine] Allergy Mild Itching Verified 01/08/18 00:49 fluoxetine HCl [From Prozac] Allergy Mild Verified 01/08/18 00:49 Penicillins Allergy Mild Nausea and Verified 01/08/18 00:49 Vomiting promethazine HCl Allergy Mild tremors Verified 01/08/18 00:49 [From Phenergan] clindamycin AdvReac Verified 01/08/18 00:49 doxycycline hyclate AdvReac Verified 01/08/18 00:49 [From Vibra-Tabs] sulfamethoxazole AdvReac Verified 01/08/18 00:49 [From Bactrim] trimethoprim [From Bactrim] AdvReac Verified 01/08/18 00:49 steroid from breathing Allergy Mild Blisters Uncoded 11/21/17 01:42 treatment - Past Medical History Past Medical History: Yes Neurological History: Epilepsy, Seizures, Stroke ENT History: No Pertinent History Cardiac History: Arrhythmia, Congestive Heart Failure, Deep Vein Thrombosis, Hypertension Respiratory History: Bronchitis, CHF, Pulmonary Embolism, Other Endocrine Medical History: Diabetes Type II, Hypothyroidism Musculoskelatal History: Other GI Medical History: GERD, Hernia, Ulcer History: No Pertinent History Pyscho-Social History: Anxiety, Bipolar, Depression, Panic Disorder Reproductive Disorders: Endometriosis Comment: Mitral valve prolapse with regurgitation, pt wears 4 L N/C at all times - Female History Are you now?: No - Past Surgical History Past Surgical History: Yes Neuro Surgical History: No Pertinent History Cardiac History: Cardiac Catheterization Respiratory Surgery: No Pertinent History GI Surgical History: Cholecystectomy, Hernia Repair Genitourinary Surgical Hx: No Pertinent History Musculskeletal Surgical Hx: Joint Replacement, Orthopedic Surgery Female Surgical History: Hysterectomy, Dilation & Curettage Other Surgical History: torn miniscus and implant-RT KNEE" partial scope replacement", oral surgery, melanoma removed for face twice, port placement twice with one removal. - Social History Smoking Status: Former smoker How long have you smoked: 15 years Exposure to second hand smoke: Yes Alcohol: None Drug Use: none Significant Family History: no pertinent family hx, heart disease, diabetes, hypertension - Physical Exam Vital Signs: Vital Signs - 24 hr Temp Pulse Resp BP Pulse Ox 04/06/18 08:44 98.4 F 72 18 115/67 100 04/06/18 08:00 98.6 F 75 18 115/56 99 04/06/18 07:39 75 18 99 04/06/18 03:59 98.6 F 78 19 115/56 99 04/06/18 03:26 78 19 99 04/06/18 00:00 98.1 F 79 18 125/80 98 04/05/18 23:07 79 18 98 04/05/18 19:56 98.2 F 79 18 124/71 100 04/05/18 19:19 79 18 100 04/05/18 16:40 98.1 F 85 20 136/76 98 04/05/18 16:20 97 Oxygen-Last 24 hours O2 Percentage 4 Liters = 36% O2 Percentage 4 Liters = 36% O2 Percentage 4 Liters = 36% O2 Percentage 4 Liters = 36% O2 Percentage 4 Liters = 36% General Appearance: no apparent distress, alert Neurologic Exam: alert, oriented x 3, cooperative, normal mood/affect, nml cerebellar function, No motor deficits Eye Exam: PERRL/EOMI, eyes nml inspection Ears, Nose, Throat Exam: normal ENT inspection, TMs normal, pharynx normal, moist mucous membranes Neck Exam: normal inspection, non-tender, supple, full range of motion Respiratory Exam: normal breath sounds, lungs clear, No respiratory distress Cardiovascular Exam: regular rate/rhythm, normal heart sounds, normal peripheral pulses Gastrointestinal/Abdomen Exam: soft, normal bowel sounds, No tenderness, No mass Back Exam: normal inspection, normal range of motion, No CVA tenderness, No vertebral tenderness Extremity Exam: normal inspection, normal range of motion, pelvis stable Skin Exam: normal color, warm, dry, No rash Lymphatic Exam: No adenopathy Results - Labs Lab/Micro Results: Accuchecks Date 04/06/18 Date 04/05/18 Time 07:30 Accucheck Value: 85 Accucheck Value: 93 Lab Results-Last 24 Hours 04/05/18 04/05/18 04/06/18 Range/Units 15:58 Unknown 04:50 WBC 7.8 (4.0-10.5) K/mm3 RBC 4.10 (4.1-5.4) M/mm3 Hgb 11.4 L (12.0-16.0) gm/dl Hct 36.5 (35-47) % MCV 89.0 (78-100) fl MCH 27.8 (26-32) pg MCHC 31.2 L (32-36) g/dl RDW 14.6 H (11.5-14.0) % Plt Count 184 (150-450) K/mm3 MPV 10.4 H (6-9.5) fl Gran % 53.6 (36.0-66.0) % Eos # (Auto) 0.73 H (0-0.5) Absolute Lymphs (auto) 2.22 (1.0-4.6) Absolute Monos (auto) 0.67 (0.0-1.3) Lymphocytes % 28.3 (24.0-44.0) % Monocytes % 8.5 (0.0-12.0) % Eosinophils % 9.3 H (0.00-5.0) % Basophils % 0.3 (0.0-0.4) % Absolute Granulocytes 4.20 (1.4-6.9) Basophils # 0.02 (0-0.4) Sodium 140 (137-145) mmol/L Potassium 4.6 (3.5-5.1) mmol/L Chloride 102 (98-107) mmol/L Carbon Dioxide 33 H (22-30) mmol/L Anion Gap 9.2 (5-15) MEQ/L BUN 13 (7-17) mg/dL Creatinine 0.73 (0.52-1.04) mg/dL Estimated GFR > 60.0 ML/MIN Glucose 91 (74-106) mg/dL Calcium 9.7 (8.4-10.2) mg/dL Total Bilirubin 0.20 (0.2-1.3) mg/dL AST 26 (14-36) U/L ALT 20 (0-35) U/L Alkaline Phosphatase 114 (38-126) U/L Serum Total Protein 7.2 (6.3-8.2) g/dL Albumin 4.3 (3.5-5.0) g/dL Urine Color COLORLESS (YELLOW) Urine Appearance CLEAR (CLEAR) Urine pH 6.0 (5-6) Ur Specific [place] 1.004 (1.005-1.025) Urine Protein NEGATIVE (Negative) Urine Ketones NEGATIVE (NEGATIVE) Urine Blood NEGATIVE (0-5) Laurent/ul Urine Nitrite NEGATIVE (NEGATIVE) Urine Bilirubin NEGATIVE (NEGATIVE) Urine Urobilinogen NEGATIVE (0-1) mg/dL Ur Leukocyte Esterase NEGATIVE (NEGATIVE) Urine WBC (Auto) NONE (0-5) /HPF Urine RBC (Auto) NONE (0-2) /HPF U Epithel Cells (Auto) NONE (FEW) /HPF Urine Bacteria (Auto) NONE SEEN (NEGATIVE) /HPF Urine Culture Reflexed NO (NO) Urine Glucose NEGATIVE (NEGATIVE) mg/dL Accuchecks Date 11/03/18 Date 04/05/18 Time 07:30 Accucheck Value: 85 Accucheck Value: 93 - Radiology Impressions Radiology Exams & Impressions: Radiology Procedures Category Date Time Status CHEST 2 VIEWS (PA AND LAT) Routine Exams 04/05/18 16:30 Completed - Other Procedures and Tests Respiratory Therapy 04/05/18 16:04 Oxygen NASAL CANNULA 2 lpm 04/05/18 16:19 Respiratory Therapy Assessment DAILY 04/05/18 19:20 Peak Expiratory Flow Rate ONCE Assessment/Plan (1) COPD exacerbation Current Visit: Yes Status: Acute Assessment & Plan: admitted yesterday afternoon from Dr. Alfaro's office she has been improving with the nebulizer as well as antibiotics and has not received any steroids but lungs sound good this am she is still weak and fatigued and feels short of breath if she is exerting herself and not eating or drinking much will continue the antibiotics, and continue scheduled nebs add steroids if wheezing returns she may benefit from nebulizer at home discussed need for outpatient removal of her port a cath that is mal positioned. she has documented hx of diabetes but all the A1c i can see are normal and no medications currently she has docmunted hx of dvt and pe but I can't find the actual positive results only negative results in her chart and she is not chronically on anticoagulation and [address] chest PE protocol in the past year. will continue on the lovenox ppx dose and plavix she is on chronically Code(s): J44.1 - CHRONIC OBSTRUCTIVE PULMONARY DISEASE W (ACUTE) EXACERBATION (2) Chronic hypoxemic respiratory failure Current Visit: Yes Status: Chronic (3) Central line complication Current Visit: Yes Status: Chronic Assessment & Plan: port a cath malpositioned needs removed Code(s): T82.9XXA - UNSP COMP OF CARDIAC AND VASCULAR PROSTH DEV/GRFT, INIT (4) Severe anxiety Current Visit: Yes Status: Chronic Code(s): F41.9 - ANXIETY DISORDER, UNSPECIFIED (5) Nonepileptic episode Current Visit: Yes Status: Chronic Assessment & Plan: previous hx none currently. Code(s): R56.9 - UNSPECIFIED CONVULSIONS
[2018-04-06] MEDS: ENOXAPARIN SODIUM SQ SCH (18:39)
[2018-04-06] MEDS: ZOCOR 20MG PO SCH (22:06)
[2018-04-06] MEDS: Cardizem CD 180 MG PO SCH (22:06)
[2018-04-07] MEDS: NORCO 7.5/325 MG TAB PO SCH ×3 (00:12→12:54)
[2018-04-07] MEDS: PROVENTIL 2.5 MG/3 ML NEB IH SCH ×3 (03:29→11:42)
[2018-04-07] MEDS: Carafate 1 GM PO SCH ×2 (07:36→11:43)
[2018-04-07] MEDS: Lactated Ringers 1,000 ML IV SCH (09:18)
[2018-04-07] MEDS: Neurontin 400 MG PO SCH ×2 (09:43→12:54)
[2018-04-07] MEDS: ROCEPHIN 1 Gm-D5w 50 ml Bag** 1 G/50 ML IVPB IV SCH (09:43)
[2018-04-07] MEDS: Klor Con 10 MEQ PO SCH (09:43)
[2018-04-07] MEDS: MAG-OX 400 PO SCH (09:43)
[2018-04-07] MEDS: SYNTHROID 100 MCG PO SCH (09:43)
[2018-04-07] MEDS: PLAVIX 75 MG Tablet PO SCH (09:43)
[2018-04-07] MEDS: BUMEX 1 MG PO SCH (09:43)
[2018-04-07] MEDS: lamICTAL 100MG TABLET PO SCH (09:43)
[2018-04-07] MEDS: CLARITIN 10 MG PO SCH (09:43)
[2018-04-07] MEDS: Protonix 40MG Tablet PO SCH (09:43)
[2018-04-07] MEDS: Cyclobenzaprine 10 MG PO SCH (09:43)
[2018-04-07] MEDS: ZOLOFT 50 MG TABLET PO SCH (09:43)
--- NOTE | 2018-04-07 10:13 | PCM.DS ---
Discharge Summary Date of Admission: 04/05/18 15:42 Date of Discharge: 04/07/2018 Admitting Physician: ERICA ALFARO Primary Care Provider: ERICA ALFARO Allergies Allergies aspirin Allergy (Mild, Verified 01/08/18 00:49) Nausea and Vomiting codeine [Codeine] Allergy (Mild, Verified 01/08/18 00:49) Itching fluoxetine HCl [From Prozac] Allergy (Mild, Verified 01/08/18 00:49) confusion , "jumped out of a moving truck" Penicillins Allergy (Mild, Verified 01/08/18 00:49) Nausea and Vomiting promethazine HCl [From Phenergan] Allergy (Mild, Verified 01/08/18 00:49) tremors clindamycin Adverse Reaction (Verified 01/08/18 00:49) doxycycline hyclate [From Vibra-Tabs] Adverse Reaction (Verified 01/08/18 00:49) sulfamethoxazole [From Bactrim] Adverse Reaction (Verified 01/08/18 00:49) trimethoprim [From Bactrim] Adverse Reaction (Verified 01/08/18 00:49) steroid from breathing treatment Allergy (Mild, Uncoded 11/21/17 01:42) Blisters Hospital Summary - Hospital Course Hospital Course: Ms. hester was visiting her PCP Dr. Alfaro as an outpatient and was having 3 weeks of worsening shortness of breath and coughing with fever and chills at home. She was not improving and sent for direct admission for concern for clinical pneumonia. She has copd with chronic respiratory failure and continues to smoke intermittently still. WE discussed the importance of total cessation from tobacco. She had xray that was remarkable for an area of some atelectasis with normal wbc. She was afebrile. She improved greatly after the nebulizer treatments and was not started on steroid at the time of admission. She was placed on antibiotics to cover for community acquired pneumonia and was improving on the azithromycin and ceftriaxone that she received 3 doses of. Her breath sounds were clear on exam at time of discharge she was able to eat and drink and ambulate on her chronic home O2 at 4L with no destaurations. She does have malfunctioning of the port on her right chest wall and was instructed at the importance of f/u with her surgeon Dr. Devries for removal - Vitals & Intake/Output Vital Signs: Vital Signs Temperature 98.7 F 04/07/18 07:54 Pulse Rate 76 04/07/18 07:54 Respiratory Rate 18 04/07/18 08:00 Blood Pressure 105/56 04/07/18 07:54 O2 Sat by Pulse Oximetry 99 04/07/18 07:54 Oxygen-Last Documented O2 Percentage 4 Liters = 36% Intake & Output: Intake & Output 04/04/18 04/05/18 04/06/18 04/07/18 11:59 11:59 11:59 10:59 Intake Total 3169 4180 Output Total 300 1200 Balance 2869 2980 Weight 93.6 kg - Lab Result Diagrams: 04/05/18 15:58 04/05/18 Unknown Lab Results-Last 24 Hrs: Accuchecks Date 04/07/18 Date 04/06/18 Date 04/06/18 Date 04/06/18 Time 07:30 Time 16:30 Time 11:30 Accucheck Value: 105 Accucheck Value: 119 Accucheck Value: 115 Accucheck Value: 87 Micro Results-Entire Visit: Accuchecks Date 04/07/18 Date 04/06/18 Date 04/06/18 Date 04/06/18 Time 07:30 Time 16:30 Time 11:30 Accucheck Value: 105 Accucheck Value: 119 Accucheck Value: 115 Accucheck Value: 87 - Radiology Exams Ordered Rad Exams-Entire Visit: Radiology Procedures Category Date Time Status CHEST 2 VIEWS (PA AND LAT) Routine Exams 04/05/18 16:30 Completed - Procedures and Test Procedures and Tests throughout Hospitalization: Therapy Orders & Screens 04/05/18 16:03 Respiratory Nebulizer UD Comment: Albuterol Q4H PRN Diagnosis: COPD exacerbation 04/05/18 16:04 Oxygen NASAL CANNULA 2 lpm Comment: O2@ as needed sats 90-94% Diagnosis: COPD exacerbation 04/05/18 16:19 Respiratory Therapy Assessment DAILY Comment: Diagnosis: COPD exacerbation 04/05/18 19:20 Peak Expiratory Flow Rate ONCE Comment: Reason For Exam: Diagnosis: COPD exacerbation Discharge Exam General Appearance: no apparent distress, alert Neurologic Exam: alert, oriented x 3, cooperative, normal mood/affect, nml cerebellar function, sensation nml, No motor deficits Skin Exam: normal color, warm, dry Eye Exam: PERRL, EOMI, eyes nml inspection Ears, Nose, Throat Exam: normal ENT inspection, pharynx normal, moist mucous membranes Neck Exam: normal inspection, non-tender, supple, full range of motion Respiratory Exam: normal breath sounds, lungs clear, No respiratory distress Cardiovascular Exam: regular rate/rhythm, normal heart sounds Gastrointestinal/Abdomen Exam: soft, No tenderness, No mass Extremity Exam: normal inspection, normal range of motion Back Exam: normal inspection, normal range of motion, No CVA tenderness, No vertebral tenderness Pelvic Exam: deferred Rectal Exam: deferred Final Diagnosis/Problem List - Final Discharge Diagnosis/Problem (1) COPD exacerbation Current Visit: Yes Status: Acute Onset Date: ~04/06/18 (2) Chronic hypoxemic respiratory failure Current Visit: Yes Status: Chronic Onset Date: ~04/06/18 (3) Central line complication Current Visit: Yes Status: Chronic Onset Date: ~04/06/18 (4) Severe anxiety Current Visit: Yes Status: Chronic Onset Date: ~04/06/18 (5) Nonepileptic episode Current Visit: Yes Status: Chronic Onset Date: ~04/06/18 - Discharge Discharge Date: 04/07/18 Disposition: Home, Self-Care Condition: Stable Prescriptions: New Cefdinir [Omnicef] 300 mg PO BID 4 Days #8 capsule Continue Simvastatin [Zocor] 20 mg PO HS Levothyroxine Sodium 100 Mcg [Synthroid 100 Mcg] 100 mcg PO QAM Diltiazem HCl [Cartia Xt] 180 mg PO QPM Clopidogrel Bisulfate 75 mg [PLAVIX 75 MG Tablet] 75 mg PO DAILY Cyclobenzaprine HCl 10 mg [Cyclobenzaprine 10 MG] 10 mg PO DAILY Lamotrigine 100 mg [lamICTAL 100MG TABLET] 200 mg PO BID Bumetanide 1 mg [Bumex 1 mg] 1 mg PO DAILY #30 tablet Diazepam 5 mg [Valium 5 MG] 5 mg PO TIDPRN Omeprazole 20 MG [Prilosec 20 mg] 20 mg PO DAILY Sucralfate 1 gm [Carafate 1 GM] 1 g PO ACHS #28 tablet Albuterol Sulfate [Ventolin Hfa] 8 gm IH Q4HPRN PRN PRN Reason: Shortness Of Breath/Wheezing Loratadine 10 mg [Claritin 10 mg] 10 mg PO DAILY Potassium Chloride [K-Dur] 20 meq PO DAILY Oxycodone / APAP 10/325 mg [Oxycodone-Acetaminophen 10-325] 1 tab PO Q4 -6HPRN PRN PRN Reason: Pain Magnesium Oxide 400 mg PO DAILY Gabapentin 800 mg PO QID Liraglutide [Victoza 2-Jacob] 1.2 mg SQ DAILY Hydrocodone Bit/Acetaminophen [Hydrocodone-Acetaminophen Soln] 10 ml PO Q6H # 120 ml Sertraline HCl 50 mg [Zoloft 50 mg Tablet] 100 mg PO BID Follow up with: ERICA ALFARO [Primary Care Provider] - 1 Week KAYLA DEVRIES [COURTESY STAFF] - 1 Week
[2018-04-07] MEDS: Zithromax 500 MG/ 250 ML NaCl Premix 500 MG/250 ML IVPB IV SCH (10:31)
[2018-04-07] MEDS: OXYCODONE-ACETAMINOPHEN 10-325 PO PRN (10:38)
[2018-04-07 11:58] VITALS: BP 120/73; PULSE 77; O2SAT 99
== END 2018-04-07 13:58 | disposition home or self-care (01) ==
LOC: INTOOBSV 15:42 → OBSVTOIN 15:42 → MED SURG 15:42
PROVIDERS: ADMIT Family Medicine; ATTEND Family Medicine
DX: J44.1 Chronic obstructive pulmonary disease with (acute) exacerbation (principal); J96.11 Chronic respiratory failure with hypoxia; T82.9XXA Unspecified complication of cardiac and vascular prosthetic device, implant and graft, initial encounter; F41.9 Anxiety disorder, unspecified; R56.9 Unspecified convulsions; I50.9 Heart failure, unspecified; Z86.718 Personal history of other venous thrombosis and embolism; Z86.73 Personal history of transient ischemic attack (TIA), and cerebral infarction without residual deficits; I10 Essential (primary) hypertension; E11.9 Type 2 diabetes mellitus without complications; E03.9 Hypothyroidism, unspecified; K21.9 Gastro-esophageal reflux disease without esophagitis; F31.9 Bipolar disorder, unspecified; N80.9 Endometriosis, unspecified; I34.1 Nonrheumatic mitral (valve) prolapse; Z79.899 Other long term (current) drug therapy
CPT/HCPCS: 36415; 71046; 80053; 81001; 82962; 85025; 94150; 94640; 94760; G0378; J7609; J0456; J0696; J1650; A9270-GY

== ENCOUNTER 2018-06-26 15:54 | Emergency (ER) | payer OTHER ==
[2018-06-26] MEDS ORDERED: solu-MEDROL 125 MG IV ONE (16:12)
[2018-06-26] MEDS ORDERED: DUONEB 0.5-3 MG/3 ml Neb IH ONE ×2 (16:12→16:41)
[2018-06-26] MEDS ORDERED: Sodium Chloride 0.9% 1000 ML 1,000 ML IV STA (16:12)
[2018-06-26] MEDS ORDERED: LEVOFLOXACIN 750MG/150ML D5W 750 MG/150 ML BAG IV STA (16:12)
[2018-06-26] MEDS ORDERED: solu-MEDROL 125 MG ONE (16:20)
[2018-06-26] MEDS ORDERED: Sodium Chloride 0.9% 1000 ML 1,000 ML ONE (16:21)
[2018-06-26] MEDS ORDERED: LEVOFLOXACIN 750MG/150ML D5W 750 MG/150 ML BAG IV ONE (16:21)
[2018-06-26 16:39] LABS: Lactic Acid 2.5 (0.4-2.0)
--- NOTE | 2018-06-26 16:39 | XRAY ---
Indication: Cough and congestion. Possible pneumonia. Comparison: April 05, 2018. PA/lateral chest unchanged again demonstrating right base discoid atelectasis/scarring and Port-A-Cath coiled over the right lung base. Remaining heart, lungs, and bony thorax normal. No new/acute findings.
[2018-06-26 16:44] LABS: BASOPHIL % 0.3 % (0.0-0.4); Basophil (Absolute #) 0.02 (0-0.4); Eosinophil % 5.9 % (0.00-5.0); Eosinophil (Absolute #) 0.43 (0-0.5); Granulocyte Absolute (ANC) 4.66 (1.4-6.9); Granulocytes % 64.3 % (36.0-66.0); Hematocrit 41.9 % (35-47); Hemoglobin 13.2 gm/dl (12.0-16.0); Lymphocyte (Absolute #) 1.67 (1.0-4.6); Mean Cell Volume 87.5 fl (78-100); Mean Corpuscular Hemoglobin 27.6 pg (26-32); Mean Corpuscular Hgb Concent. 31.5 g/dl (32-36); Mean Platelet Volume 10.7 fl (6-9.5); Monocyte (Absolute #) 0.47 (0.0-1.3); Monocytes % 6.5 % (0.0-12.0); Platelet Count 217 K/mm3 (150-450); Red Blood Count 4.79 M/mm3 (4.1-5.4); Red Cell Distribution Width 14.5 % (11.5-14.0); White Blood Count 7.3 K/mm3 (4.0-10.5)
[2018-06-26 16:56] LABS: ALBUMIN 4.8 g/dL (3.5-5.0); ALKALINE PHOSPHATASE 138 U/L (38-126); ANION GAP 14.2 MEQ/L (5-15); BLOOD UREA NITROGEN 11 mg/dL (7-17); CHLORIDE 103 mmol/L (98-107); Calcium 9.6 mg/dL (8.4-10.2); Carbon Dioxide 28 mmol/L (22-30); Creatinine 1 0.71 mg/dL (0.52-1.04); Glucose 129 mg/dL (74-106); Potassium 4.1 mmol/L (3.5-5.1); SGOT/AST 28 U/L (14-36); SGPT/ALT 22 U/L (0-35); SODIUM 141 mmol/L (137-145); Total Protein 8.3 g/dL (6.3-8.2)
[2018-06-26 17:17] LABS: Group A Strep NEGATIVE (NEGATIVE); INFLUENZA A NEGATIVE (NEGATIVE); INFLUENZA B NEGATIVE (NEGATIVE); RESPIRATORY SYNCTIAL VIRUS NEGATIVE (Negative)
[2018-06-26 17:50] VITALS: BP 138/88; PULSE 82; O2SAT 99
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
[2018-06-26 18:26] LABS: Appearance SLIGHTLY CLOUDY (CLEAR); Bilirubin NEGATIVE (NEGATIVE); Blood NEGATIVE Ery/ul (0-5); Epithelial Cells RARE /HPF (FEW); Glucose NEGATIVE (NEGATIVE); Ketones NEGATIVE (NEGATIVE); Leukocyte Esterase NEGATIVE (NEGATIVE); Mucus SLIGHT /HPF (NEGATIVE); Nitrite NEGATIVE (NEGATIVE); Protein,Urine Dip NEGATIVE (Negative); Specific Gravity 1.004 (1.005-1.025); Urobilinogen NEGATIVE mg/dL (0-1)
== END 2018-06-26 18:17 | disposition home or self-care (01) ==
LOC: ED 15:54
DX: J44.1 Chronic obstructive pulmonary disease with (acute) exacerbation (principal); G40.909 Epilepsy, unspecified, not intractable, without status epilepticus; I50.9 Heart failure, unspecified; I10 Essential (primary) hypertension; E11.9 Type 2 diabetes mellitus without complications; E03.9 Hypothyroidism, unspecified; F41.8 Other specified anxiety disorders; N80.9 Endometriosis, unspecified; Z79.899 Other long term (current) drug therapy
CPT/HCPCS: 36000; 36415; 71046; 80053; 81001; 83605; 84703; 85025; 87040; 87086; 87631; 87651; 94150; 94640; 96360; 96365; 96374; 99284; J1956; J2930; A9270-GY

== ENCOUNTER 2018-07-06 00:50 | Emergency (ER) | payer OTHER ==
[2018-07-06] MEDS ORDERED: MORPHINE SULFATE 10 MG/ML IV ONE (01:23)
[2018-07-06] MEDS ORDERED: MORPHINE SULFATE 10 MG/ML ONE (01:25)
[2018-07-06] MEDS ORDERED: Sodium Chloride 0.9% 1000 ML 1,000 ML ONE (01:26)
[2018-07-06] MEDS ORDERED: Sodium Chloride 0.9% 1000 ML 1,000 ML IV SCH (01:30)
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
[2018-07-06 01:48] LABS: BASOPHIL % 0.1 % (0.0-0.4); Basophil (Absolute #) 0.01 (0-0.4); Eosinophil % 3.6 % (0.00-5.0); Eosinophil (Absolute #) 0.32 (0-0.5); Granulocytes % 64.9 % (36.0-66.0); Lymphocyte (Absolute #) 2.09 (1.0-4.6); Lymphocytes % 23.4 % (24.0-44.0); Mean Cell Volume 87.6 fl (78-100); Mean Corpuscular Hemoglobin 27.6 pg (26-32); Mean Corpuscular Hgb Concent. 31.6 g/dl (32-36); Mean Platelet Volume 10.5 fl (6-9.5); Monocyte (Absolute #) 0.71 (0.0-1.3); Platelet Count 191 K/mm3 (150-450); Red Blood Count 4.34 M/mm3 (4.1-5.4); Red Cell Distribution Width 14.5 % (11.5-14.0); White Blood Count 8.9 K/mm3 (4.0-10.5)
[2018-07-06 01:59] LABS: ALBUMIN 4.6 g/dL (3.5-5.0); ALKALINE PHOSPHATASE 125 U/L (38-126); AMYLASE 37 U/L (30-110); ANION GAP 13.6 MEQ/L (5-15); BLOOD UREA NITROGEN 11 mg/dL (7-17); CHLORIDE 104 mmol/L (98-107); Calcium 9.1 mg/dL (8.4-10.2); Carbon Dioxide 29 mmol/L (22-30); Creatinine 1 0.73 mg/dL (0.52-1.04); Glucose 90 mg/dL (74-106); LIPASE 68 U/L (23-300); Potassium 3.9 mmol/L (3.5-5.1); SGOT/AST 18 U/L (14-36); SGPT/ALT 17 U/L (0-35); SODIUM 143 mmol/L (137-145); Total Protein 7.6 g/dL (6.3-8.2)
[2018-07-06 04:55] VITALS: PULSE 78
[2018-07-06 06:08] VITALS: O2SAT 98
[2018-07-06] MEDS ORDERED: MORPHINE SULFATE 4 MG INJ IV ONE (06:23)
[2018-07-06] MEDS ORDERED: MORPHINE SULFATE 4 MG INJ ONE (06:24)
[2018-07-06 07:16] VITALS: BP 100/66
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
== END 2018-07-06 07:18 | disposition home or self-care (01) ==
LOC: ED 00:50
DX: S06.0X0A Concussion without loss of consciousness, initial encounter (principal); S16.1XXA Strain of muscle, fascia and tendon at neck level, initial encounter; S29.012A Strain of muscle and tendon of back wall of thorax, initial encounter; S39.012A Strain of muscle, fascia and tendon of lower back, initial encounter; S80.12XA Contusion of left lower leg, initial encounter; S80.11XA Contusion of right lower leg, initial encounter; G40.909 Epilepsy, unspecified, not intractable, without status epilepticus; E03.9 Hypothyroidism, unspecified; V89.0XXA Person injured in unspecified motor-vehicle accident, nontraffic, initial encounter; Y92.89 Other specified places as the place of occurrence of the external cause; Z86.711 Personal history of pulmonary embolism; G89.4 Chronic pain syndrome; R51 Headache; M54.2 Cervicalgia; R07.9 Chest pain, unspecified; H53.8 Other visual disturbances; I50.9 Heart failure, unspecified; I10 Essential (primary) hypertension; Z86.718 Personal history of other venous thrombosis and embolism; E11.9 Type 2 diabetes mellitus without complications; I34.1 Nonrheumatic mitral (valve) prolapse; Z72.0 Tobacco use
CPT/HCPCS: 36000; 36415; 70450; 71260; 72125; 72128; 72131; 73030; 73552; 73590; 73610; 74177; 80053; 82150; 83690; 84484; 85025; 96360; 96361; 96374; 96375; 96376; 99285; J2270

== ENCOUNTER 2018-07-24 10:55 | Observation (INO) | payer OTHER ==
[2018-07-24 12:17] LABS: BASOPHIL % 0.2 % (0.0-0.4); Basophil (Absolute #) 0.01 (0-0.4); Eosinophil % 8.7 % (0.00-5.0); Eosinophil (Absolute #) 0.41 (0-0.5); Granulocyte Absolute (ANC) 2.01 (1.4-6.9); Granulocytes % 42.8 % (36.0-66.0); Hematocrit 40.5 % (35-47); Hemoglobin 12.8 gm/dl (12.0-16.0); Lymphocyte (Absolute #) 1.85 (1.0-4.6); Lymphocytes % 39.4 % (24.0-44.0); Mean Corpuscular Hemoglobin 27.8 pg (26-32); Mean Corpuscular Hgb Concent. 31.6 g/dl (32-36); Mean Platelet Volume 10.9 fl (6-9.5); Monocyte (Absolute #) 0.42 (0.0-1.3); Monocytes % 8.9 % (0.0-12.0); Platelet Count 173 K/mm3 (150-450); Red Cell Distribution Width 14.9 % (11.5-14.0); White Blood Count 4.7 K/mm3 (4.0-10.5)
[2018-07-24] MEDS ORDERED: PROVENTIL COMMON CANISTER IH PRN (12:38)
[2018-07-24] MEDS: PROVENTIL COMMON CANISTER IH SCH ×3 (12:56→20:31)
[2018-07-24] MEDS ORDERED: Ventolin Hfa MDI IH PRN (13:25)
[2018-07-24] MEDS ORDERED: Valium 5 MG PO PRN (13:30)
[2018-07-24] MEDS: LIORESAL 10 MG PO SCH ×2 (13:35→21:34)
[2018-07-24 13:36] LABS: ALBUMIN 4.5 g/dL (3.5-5.0); ALKALINE PHOSPHATASE 97 U/L (38-126); ANION GAP 12.4 MEQ/L (5-15); BLOOD UREA NITROGEN 17 mg/dL (7-17); CHLORIDE 104 mmol/L (98-107); Calcium 9.4 mg/dL (8.4-10.2); Carbon Dioxide 29 mmol/L (22-30); Creatinine 1 0.69 mg/dL (0.52-1.04); Folate (Folic Acid) 19.3 ng/mL (2.76 - >20); Potassium 3.6 mmol/L (3.5-5.1); SGOT/AST 23 U/L (14-36); SGPT/ALT 19 U/L (0-35); SODIUM 142 mmol/L (137-145); Total Protein 7.8 g/dL (6.3-8.2); Vitamin B12 381 pg/mL (239-931)
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
[2018-07-24] MEDS: Neurontin 400 MG PO SCH ×3 (14:38→21:35)
[2018-07-24] MEDS ORDERED: PROVENTIL 2.5 MG/3 ML NEB IH SCH (15:00)
[2018-07-24] MEDS: OXYCODONE-ACETAMINOPHEN 10-325 PO PRN ×2 (16:20→21:34)
[2018-07-24] MEDS: Advair Hfa 115/21 Common canister IH SCH (20:30)
[2018-07-24] MEDS: ZOLOFT 50 MG TABLET PO SCH (21:34)
[2018-07-24] MEDS: lamICTAL 100MG TABLET PO SCH (21:35)
[2018-07-24] MEDS ORDERED: NON-FORMULARY ITEM (Budesonide/Formoterol Fumarate [Symbicort 160-4.5 Mcg Inhaler] 10.2 GM IH SCH (22:00)
[2018-07-24] MEDS ORDERED: Cardizem CD 180 MG PO SCH (22:00)
[2018-07-24] MEDS ORDERED: ZOCOR 20MG PO SCH (22:00)
[2018-07-25] MEDS: OXYCODONE-ACETAMINOPHEN 10-325 PO PRN ×3 (01:31→14:07)
[2018-07-25 06:05] LABS: Appearance CLEAR (CLEAR); Bilirubin NEGATIVE (NEGATIVE); Blood NEGATIVE Ery/ul (0-5); Glucose NEGATIVE (NEGATIVE); Ketones NEGATIVE (NEGATIVE); Leukocyte Esterase NEGATIVE (NEGATIVE); Mucus SLIGHT /HPF (NEGATIVE); Nitrite NEGATIVE (NEGATIVE); Protein,Urine Dip NEGATIVE (Negative); Specific Gravity 1.008 (1.005-1.025); Urobilinogen NEGATIVE mg/dL (0-1); WBC 0-2 /HPF (0-5)
[2018-07-25] MEDS: PROVENTIL COMMON CANISTER IH SCH ×2 (07:06→10:52)
[2018-07-25] MEDS: Advair Hfa 115/21 Common canister IH SCH (07:07)
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
[2018-07-25] MEDS: LIORESAL 10 MG PO SCH ×2 (09:12→14:07)
[2018-07-25] MEDS: Neurontin 400 MG PO SCH ×2 (09:12→12:30)
[2018-07-25] MEDS: lamICTAL 100MG TABLET PO SCH (09:12)
[2018-07-25] MEDS: ZOLOFT 50 MG TABLET PO SCH (09:13)
[2018-07-25] MEDS ORDERED: MAG-OX 400 PO SCH (10:00)
[2018-07-25] MEDS ORDERED: Protonix 40MG Tablet PO SCH (10:00)
[2018-07-25] MEDS ORDERED: Klor Con 10 MEQ PO SCH (10:00)
[2018-07-25] MEDS ORDERED: OXYCODONE HCL 10 MG PO SCH (10:00)
[2018-07-25] MEDS ORDERED: PLAVIX 75 MG Tablet PO SCH (10:00)
[2018-07-25] MEDS ORDERED: CLARITIN 10 MG PO SCH (10:00)
[2018-07-25] MEDS ORDERED: SYNTHROID 100 MCG PO SCH (10:00)
[2018-07-25] MEDS ORDERED: Oxycontin 10 MG ER PO SCH ×3 (10:00→22:00)
[2018-07-25] MEDS ORDERED: NON-FORMULARY ITEM (Potassium Chloride [K-Dur] 20 MEQ) PO SCH (10:00)
[2018-07-25] MEDS ORDERED: Flonase NASAL NS SCH (10:00)
[2018-07-25] MEDS ORDERED: BUMEX 1 MG PO SCH (10:00)
[2018-07-25 12:28] VITALS: O2SAT 99
[2018-07-25] MEDS ORDERED: PROVENTIL COMMON CANISTER IH SCH (15:00)
[2018-07-25 16:19] VITALS: BP 115/66; PULSE 72
[2018-07-26 14:36] LABS: RPR Screen Non Reactive (Non Reactive)
== END 2018-07-25 18:15 | disposition home or self-care (01) ==
LOC: MED SURG 11:25
PROVIDERS: ADMIT Family Medicine; ATTEND Family Medicine
DX: R20.2 Paresthesia of skin (principal); S06.0X1D Concussion with loss of consciousness of 30 minutes or less, subsequent encounter; G44.52 New daily persistent headache (NDPH); E11.9 Type 2 diabetes mellitus without complications; M54.2 Cervicalgia; R42 Dizziness and giddiness; R07.9 Chest pain, unspecified; M25.552 Pain in left hip; M25.512 Pain in left shoulder; M25.562 Pain in left knee; Z79.4 Long term (current) use of insulin; M54.5 Low back pain; V47.5XXD Car driver injured in collision with fixed or stationary object in traffic accident, subsequent encounter; Z79.899 Other long term (current) drug therapy
CPT/HCPCS: 36415; 73000; 80053; 81001; 82607; 82746; 82962; 83036; 84443; 85025; 86592; 86593; 86780; 94150; 94640; 94760; G0378; Q3014; A9270-GY

== ENCOUNTER 2018-09-17 21:15 | Emergency (ER) | payer OTHER ==
[2018-09-17] MEDS ORDERED: DUONEB 0.5-3 MG/3 ml Neb IH ONE ×2 (21:40→21:47)
[2018-09-17] MEDS ORDERED: Sodium Chloride 0.9% 1000 ML 1,000 ML IV SCH (21:45)
--- NOTE | 2018-09-17 21:47 | ERPHSYRPT ---
- History of Present Illness Time Seen by Provider: 09/17/18 21:36 Source: patient Exam Limitations: no limitations Patient Subjective Stated Complaint: pt reports fever, cough,chills, lower back pain and shortness of breath for 2 days. reports temp of 103 at home. Triage Nursing Assessment: pt is aox3, pupils perrl, afebrile, resps easy and non labored, lung sounds are clear throughout all tovar, non productive, dry cough heard upon exam, pt presents wearing O2 per home use at 4L via NC, radial pulses strong and equal, cap refill < 3 seconds, pt skin pink warm dry. Physician History: 42-year-old white female with history of multiple medical history, Patient arrives with complaint of fever cough chills lower back pain symptoms going on for several days she states she has been wheezing and short of breath as well. Past medical history includes epilepsy, seizures, stroke, arrhythmia, CHF, DVT, high blood pressure, bronchitis, PE, diabetes type 2, hypothyroidism, GERD, hiatal hernia, ulcers, anxiety, bipolar depression, panic disorder, endometriosis, mitral valve prolapse with reflux patient apparently chronically on home O2. Past surgical history includes cholecystectomy, hernia, joint surgery, orthopedic surgery, hysterectomy, D&C, torn meniscus and implant in the right knee, oral surgery, melena no murmur removed from face 2, port placed 2 with removal one time. Timing/Duration: day(s) (2-3 days) Severity: moderate Modifying Factors: Improves With: nothing Associated Symptoms: shortness of breath, cough, chills, fever, malaise, No nausea, No vomiting, No abdominal pain, No heartburn, No diaphoresis, No chest pain, No headaches, No loss of appetite, No rash, No syncope, No seizure, No weakness Allergies/Adverse Reactions: aspirin Allergy (Mild, Verified 09/17/18 21:34) Nausea and Vomiting codeine [Codeine] Allergy (Mild, Verified 09/17/18 21:34) Itching fluoxetine HCl [From Prozac] Allergy (Mild, Verified 09/17/18 21:34) confusion , "jumped out of a moving truck" Penicillins Allergy (Mild, Verified 09/17/18 21:34) Nausea and Vomiting promethazine HCl [From Phenergan] Allergy (Mild, Verified 09/17/18 21:34) tremors clindamycin Adverse Reaction (Verified 09/17/18 21:34) doxycycline hyclate [From Vibra-Tabs] Adverse Reaction (Verified 09/17/18 21:34) sulfamethoxazole [From Bactrim] Adverse Reaction (Verified 09/17/18 21:34) trimethoprim [From Bactrim] Adverse Reaction (Verified 09/17/18 21:34) steroid from breathing treatment Allergy (Mild, Uncoded 09/17/18 21:34) Blisters Home Medications: Diltiazem HCl [Cartia Xt] 180 mg PO QPM 09/27/14 [History] Levothyroxine Sodium 100 Mcg [Synthroid 100 Mcg] 100 mcg PO QAM 09/27/14 [ History] Simvastatin [Zocor] 20 mg PO HS 09/27/14 [History] Clopidogrel Bisulfate 75 mg [PLAVIX 75 MG Tablet] 75 mg PO DAILY 04/05/15 [History] Cyclobenzaprine HCl 10 mg [Cyclobenzaprine 10 MG] 10 mg PO DAILY 07/16/15 [History] Lamotrigine 100 mg [lamICTAL 100MG TABLET] 200 mg PO BID 09/27/15 [History ] Diazepam 5 mg [Valium 5 MG] 5 mg PO TIDPRN 02/14/16 [History] Omeprazole 20 MG [Prilosec 20 mg] 20 mg PO DAILY 04/20/16 [History] Albuterol Sulfate [Ventolin Hfa] 8 gm IH Q4HPRN PRN 12/21/16 [History] Loratadine 10 mg [Claritin 10 mg] 10 mg PO DAILY 07/30/17 [History] Potassium Chloride [K-Dur] 20 meq PO DAILY 08/03/17 [History] Gabapentin 800 mg PO QID 09/10/17 [History] Magnesium Oxide 400 mg PO DAILY 09/10/17 [History] Oxycodone / APAP 10/325 mg [Oxycodone-Acetaminophen 10-325] 1 tab PO Q4- 6HPRN PRN 09/10/17 [History] Liraglutide [Victoza 2-Jacob] 1.2 mg SQ DAILY 01/05/18 [History] Sertraline HCl 50 mg [Zoloft 50 mg Tablet] 100 mg PO BID 04/05/18 [History] Oxycodone HCl [Oxycontin] 10 mg PO BID 07/24/18 [History] Hx Tetanus, Diphtheria Vaccination/Date Given: Yes Hx Influenza Vaccination/Date Given: Yes Hx Pneumococcal Vaccination/Date Given: Yes Immunizations Up to Date: Yes - Review of Systems Constitutional: No Fever, No Chills Eyes: No Symptoms Ears, Nose, & Throat: No Symptoms Respiratory: Cough, Dyspnea, Wheezing, No Cyanosis, No Dyspnea on Exertion (SOARES) Cardiac: No Chest Pain, No Edema, No Syncope Abdominal/Gastrointestinal: No Abdominal Pain, No Nausea, No Vomiting, No Diarrhea Genitourinary Symptoms: No Dysuria Musculoskeletal: Back Pain Skin: No Rash Neurological: No Dizziness, No Focal Weakness, No Sensory Changes Psychological: No Symptoms Endocrine: No Symptoms All Other Systems: Reviewed and Negative - Past Medical History Pertinent Past Medical History: Yes Neurological History: Epilepsy, Seizures, Stroke ENT History: No Pertinent History Cardiac History: Arrhythmia, Congestive Heart Failure, Deep Vein Thrombosis, Hypertension Respiratory History: Bronchitis, CHF, Pulmonary Embolism, Other Endocrine Medical History: Diabetes Type II, Hypothyroidism Musculoskeletal History: Other GI Medical History: GERD, Hernia, Ulcer History: No Pertinent History Psycho-Social History: Anxiety, Bipolar, Depression, Panic Disorder Female Reproductive Disorders: Endometriosis Other Medical History: Mitral valve prolapse with regurgitation, pt wears 4 L N/ C at all times - Past Surgical History Past Surgical History: Yes Neuro Surgical History: No Pertinent History Cardiac: Cardiac Catheterization Respiratory: No Pertinent History Gastrointestinal: Cholecystectomy, Hernia Repair Genitourinary: No Pertinent History Musculoskeletal: Joint Replacement, Orthopedic Surgery Female Surgical History: Hysterectomy, Dilation & Curettage Other Surgical History: torn miniscus and implant-RT KNEE" partial scope replacement", oral surgery, melanoma removed for face twice, port placement twice with one removal. - Social History Smoking Status: Former smoker How long have you smoked: 10 years Exposure to second hand smoke: Yes Alcohol Use: None Drug Use: none Patient Lives Alone: No Significant Family History: no pertinent family hx, heart disease, diabetes, hypertension - Female History Hx Last Menstrual Period: hyst 13 yrs ago Hx Now: No - Nursing Vital Signs Nursing Vital Signs: Initial Vital Signs Temperature 98.5 F 09/17/18 21:23 Pulse Rate 88 09/17/18 21:23 Respiratory Rate 20 09/17/18 21:23 Blood Pressure 112/79 09/17/18 21:23 O2 Sat by Pulse Oximetry 98 09/17/18 21:23 Pain Scale Pain Intensity 4 - Physical Exam General Appearance: mild distress, alert, other (well-developed well-nourished white female frequent cough) Eye Exam: PERRL/EOMI, eyes nml inspection Ears, Nose, Throat Exam: TMs normal, moist mucous membranes, pharyngeal erythema , No pharynx normal (Throat erythema) Neck Exam: normal inspection, non-tender, supple, full range of motion Respiratory Exam: wheezing, other (frequent cough) Cardiovascular Exam: regular rate/rhythm, normal heart sounds, normal peripheral pulses, capillary refill <2 sec Gastrointestinal/Abdomen Exam: soft, normal bowel sounds, No tenderness, No mass Back Exam: normal inspection, normal range of motion, No CVA tenderness, No vertebral tenderness Extremity Exam: normal inspection, normal range of motion, pelvis stable Neurologic Exam: alert, oriented x 3, cooperative, director of photography II-XII nml as tested, normal mood/affect, nml cerebellar function, nml station & gait, sensation nml, No motor deficits Skin Exam: normal color, warm, dry, No rash Lymphatic Exam: No adenopathy SpO2 Interpretation: normal (98%) SpO2: 98 - Course Nursing assessment & vital signs reviewed: Yes EKG Interpreted by Me: RATE (76 bpm), Sinus Rhythm, NORMAL AXIS, Other (EKG: Sinus rhythm, 76 bpm, normal axis, no acute ST or T wave changes noted) Ordered Tests: Active Orders 24 hr Category Date Time Status Substitute Nurse STAT Care 09/17/18 21:41 Active EKG-ER Only STAT Care 09/17/18 21:40 Active IV Insertion STAT Care 09/17/18 21:40 Active Pulse Oximetry (ED) STAT Care 09/17/18 21:40 Active CHEST 1 VIEW (PORTABLE) Stat Exams 09/17/18 21:41 Taken BLOOD CULTURE Stat Lab 09/17/18 22:20 Received CBC W DIFF Stat Lab 09/17/18 21:50 Completed CMP Stat Lab 09/17/18 21:50 Completed Lactic Acid Stat Lab 09/17/18 21:40 Completed NT PRO BNP Stat Lab 09/17/18 21:50 Completed UA W/RFX UR CULTURE Stat Lab 09/18/18 00:45 Completed Respiratory Nebulizer STAT RT 09/17/18 21:42 Completed Respiratory Nebulizer STAT RT 09/18/18 00:20 Completed Respiratory Therapy Assessment ASORD RT 09/17/18 22:07 Completed Respiratory Therapy Assessment ASORD RT 09/18/18 00:35 Completed Medication Summary Generic Name Dose Route Start Last Admin Trade Name Freq PRN Reason Stop Dose Admin Sodium Chloride 1,000 mls @ 100 mls/hr 09/17/18 21:45 09/17/18 22:51 Sodium Chloride 0.9% 1000 Ml IV 10/17/18 21:44 100 mls/hr .Q10H LAMONTE Administration Discontinued Medications Generic Name Dose Route Start Last Admin Trade Name Freq PRN Reason Stop Dose Admin Albuterol Sulfate 2.5 mg 09/18/18 00:20 09/18/18 00:24 Proventil 2.5 Mg/3 Ml Neb IH 09/18/18 00:21 2.5 mg STAT ONE Administration Albuterol Sulfate Confirm 09/18/18 00:25 Proventil 2.5 Mg/3 Ml Neb Administered 09/18/18 00:26 Dose 2.5 mg IH .STK-MED ONE Albuterol/Ipratropium 3 ml 09/17/18 21:40 09/17/18 21:50 Duoneb 0.5-3 Mg/3 Ml Neb IH 09/17/18 21:41 3 ml STAT ONE Administration Albuterol/Ipratropium Confirm 09/17/18 21:47 Duoneb 0.5-3 Mg/3 Ml Neb Administered 09/17/18 21:48 Dose 3 ml IH .STK-MED ONE Methylprednisolone Sodium Succinate 125 mg 09/17/18 23:53 09/18/18 00:17 Solu-Medrol 125 Mg IV 09/17/18 23:54 125 mg STAT ONE Administration Methylprednisolone Sodium Succinate Confirm 09/18/18 00:15 Solu-Medrol 125 Mg Administered 09/18/18 00:16 Dose 125 mg .ROUTE .STK-MED ONE Potassium Chloride 40 meq 09/17/18 23:03 09/17/18 23:09 Klor Con 10 Meq PO 04/16/19 23:04 40 meq STAT ONE Administration Potassium Chloride Confirm 09/17/18 23:08 Klor Con 10 Meq Administered 09/17/18 23:09 Dose 40 meq PO .STK-MED ONE Lab/Rad Data: Laboratory Result Diagrams 09/17/18 21:50 09/17/18 21:50 Laboratory Results 09/18/18 09/17/18 09/17/18 Range/Units 00:45 21:50 21:50 WBC (4.0-10.5) K/mm3 RBC (4.1-5.4) M/mm3 Hgb (12.0-16.0) gm/dl Hct (35-47) % MCV (78-100) fl MCH (26-32) pg MCHC (32-36) g/dl RDW (11.5-14.0) % Plt Count (150-450) K/mm3 MPV (6-9.5) fl Gran % (36.0-66.0) % Eos # (Auto) (0-0.5) Absolute Lymphs (auto) (1.0-4.6) Absolute Monos (auto) (0.0-1.3) Lymphocytes % (24.0-44.0) % Monocytes % (0.0-12.0) % Eosinophils % (0.00-5.0) % Basophils % (0.0-0.4) % Absolute Granulocytes (1.4-6.9) Basophils # (0-0.4) Sodium 143 (137-145) mmol/L Potassium 3.1 L (3.5-5.1) mmol/L Chloride 105 (98-107) mmol/L Carbon Dioxide 28 (22-30) mmol/L Anion Gap 12.6 (5-15) MEQ/L BUN 9 (7-17) mg/dL Creatinine 0.71 (0.52-1.04) mg/dL Estimated GFR > 60.0 ML/MIN Glucose 109 H (74-106) mg/dL Lactic Acid (0.4-2.0) Calcium 9.6 (8.4-10.2) mg/dL Total Bilirubin 0.30 (0.2-1.3) mg/dL AST 17 (14-36) U/L ALT 18 (0-35) U/L Alkaline Phosphatase 126 (38-126) U/L NT-Pro-B Natriuret Pep 167 (0-450) pg/mL Serum Total Protein 7.7 (6.3-8.2) g/dL Albumin 4.4 (3.5-5.0) g/dL Urine Color YELLOW (YELLOW) Urine Appearance CLOUDY (CLEAR) Urine pH 6.0 (5-6) Ur Specific [place] 1.023 (1.005-1.025) Urine Protein NEGATIVE (Negative) Urine Ketones NEGATIVE (NEGATIVE) Urine Blood NEGATIVE (0-5) Laurent/ul Urine Nitrite NEGATIVE (NEGATIVE) Urine Bilirubin NEGATIVE (NEGATIVE) Urine Urobilinogen NEGATIVE (0-1) mg/dL Ur Leukocyte Esterase NEGATIVE (NEGATIVE) Urine WBC (Auto) 3-5 (0-5) /HPF Urine RBC (Auto) 3-5 (0-2) /HPF U Hyaline Cast (Auto) 3-5 (0-2) /LPF U Epithel Cells (Auto) RARE (FEW) /HPF Urine Bacteria (Auto) RARE (NEGATIVE) /HPF Calcium Oxalate Crystal 26-50 (NEGATIVE) /HPF Urine Mucus (Auto) MANY (NEGATIVE) /HPF Urine Culture Reflexed NO (NO) Urine Glucose NEGATIVE (NEGATIVE) mg/dL Influenza Type A Ag NEGATIVE (NEGATIVE) Influenza Type B Ag NEGATIVE (NEGATIVE) RSV (PCR) NEGATIVE (Negative) Group A Strep Antibody NEGATIVE (NEGATIVE) 09/17/18 09/17/18 Range/Units 21:50 21:40 WBC 7.7 (4.0-10.5) K/mm3 RBC 4.41 (4.1-5.4) M/mm3 Hgb 12.6 (12.0-16.0) gm/dl Hct 38.5 (35-47) % MCV 87.3 (78-100) fl MCH 28.6 (26-32) pg MCHC 32.7 (32-36) g/dl RDW 14.8 H (11.5-14.0) % Plt Count 193 (150-450) K/mm3 MPV 11.3 H (6-9.5) fl Gran % 59.1 (36.0-66.0) % Eos # (Auto) 0.84 H (0-0.5) Absolute Lymphs (auto) 1.70 (1.0-4.6) Absolute Monos (auto) 0.60 (0.0-1.3) Lymphocytes % 22.1 L (24.0-44.0) % Monocytes % 7.8 (0.0-12.0) % Eosinophils % 10.9 H (0.00-5.0) % Basophils % 0.1 (0.0-0.4) % Absolute Granulocytes 4.54 (1.4-6.9) Basophils # 0.01 (0-0.4) Sodium (137-145) mmol/L Potassium (3.5-5.1) mmol/L Chloride (98-107) mmol/L Carbon Dioxide (22-30) mmol/L Anion Gap (5-15) MEQ/L BUN (7-17) mg/dL Creatinine (0.52-1.04) mg/dL Estimated GFR ML/MIN Glucose (74-106) mg/dL Lactic Acid 1.6 (0.4-2.0) Calcium (8.4-10.2) mg/dL Total Bilirubin (0.2-1.3) mg/dL AST (14-36) U/L ALT (0-35) U/L Alkaline Phosphatase (38-126) U/L NT-Pro-B Natriuret Pep (0-450) pg/mL Serum Total Protein (6.3-8.2) g/dL Albumin (3.5-5.0) g/dL Urine Color (YELLOW) Urine Appearance (CLEAR) Urine pH (5-6) Ur Specific [place] (1.005-1.025) Urine Protein (Negative) Urine Ketones (NEGATIVE) Urine Blood (0-5) Laurent/ul Urine Nitrite (NEGATIVE) Urine Bilirubin (NEGATIVE) Urine Urobilinogen (0-1) mg/dL Ur Leukocyte Esterase (NEGATIVE) Urine WBC (Auto) (0-5) /HPF Urine RBC (Auto) (0-2) /HPF U Hyaline Cast (Auto) (0-2) /LPF U Epithel Cells (Auto) (FEW) /HPF Urine Bacteria (Auto) (NEGATIVE) /HPF Calcium Oxalate Crystal (NEGATIVE) /HPF Urine Mucus (Auto) (NEGATIVE) /HPF Urine Culture Reflexed (NO) Urine Glucose (NEGATIVE) mg/dL Influenza Type A Ag (NEGATIVE) Influenza Type B Ag (NEGATIVE) RSV (PCR) (Negative) Group A Strep Antibody (NEGATIVE) - Progress Progress: improved Progress Note: 09/18/18 01:08 Patient improved after IV Solu-Medrol normal saline 1 L. Patient's influenza strep are negative patient did have a potassium of 3.1 she is given 40 mEq of potassium orally here in the emergency room chemistries CBC are normal. Chest x-ray no acute disease processes is noted. EKG sinus rhythm 76 bpm normal axis no acute ST or T wave changes normal. Lactate is within normal range. Patient with a few remaining wheezes but moving air well after DuoNeb treatment and albuterol treatment. Patient states she is cannot take oral steroids. Patient stable with stable vital signs Will plan to discharge patient patient given Zithromax 500 mg orally today We'll send patient home with prescription for Zithromax 250 mg orally daily for 4 additional days. She is continue to use her inhalers plenty of fluids follow-up with her family doctor. . - Departure Departure Disposition: Home Clinical Impression: Bronchitis with bronchospasm COPD (chronic obstructive pulmonary disease) Qualifiers: COPD type: unspecified COPD Qualified Code(s): J44.9 - Chronic obstructive pulmonary disease, unspecified Condition: Fair Critical Care Time: No Referrals: ERICA BROCK [Primary Care Provider] - Instructions: Chronic Obstructive Pulmonary Disease Additional Instructions: Return home. Plenty of fluids. Zithromax as prescribed. Take your pain medications as prescribed by your pain master control supervisor. Avoid secondhand tobacco smoke. Use your inhalers and other medications as prescribed by your family doctor. Follow-up with your family doctor. Return for acute distress or for severe symptoms or for any other problems. Prescriptions: Azithromycin [Zithromax] 250 mg PO DAILY #4 tablet
[2018-09-17 22:23] LABS: BASOPHIL % 0.1 % (0.0-0.4); Basophil (Absolute #) 0.01 (0-0.4); Eosinophil % 10.9 % (0.00-5.0); Eosinophil (Absolute #) 0.84 (0-0.5); Granulocyte Absolute (ANC) 4.54 (1.4-6.9); Granulocytes % 59.1 % (36.0-66.0); Hematocrit 38.5 % (35-47); Hemoglobin 12.6 gm/dl (12.0-16.0); Lymphocytes % 22.1 % (24.0-44.0); Mean Cell Volume 87.3 fl (78-100); Mean Corpuscular Hemoglobin 28.6 pg (26-32); Mean Corpuscular Hgb Concent. 32.7 g/dl (32-36); Mean Platelet Volume 11.3 fl (6-9.5); Monocytes % 7.8 % (0.0-12.0); Platelet Count 193 K/mm3 (150-450); Red Blood Count 4.41 M/mm3 (4.1-5.4); Red Cell Distribution Width 14.8 % (11.5-14.0); White Blood Count 7.7 K/mm3 (4.0-10.5)
[2018-09-17 22:43] LABS: ALBUMIN 4.4 g/dL (3.5-5.0); ALKALINE PHOSPHATASE 126 U/L (38-126); ANION GAP 12.6 MEQ/L (5-15); BLOOD UREA NITROGEN 9 mg/dL (7-17); CHLORIDE 105 mmol/L (98-107); Calcium 9.6 mg/dL (8.4-10.2); Carbon Dioxide 28 mmol/L (22-30); Creatinine 1 0.71 mg/dL (0.52-1.04); Glucose 109 mg/dL (74-106); NT PRO BNP 167 pg/mL (0-450); Potassium 3.1 mmol/L (3.5-5.1); SGOT/AST 17 U/L (14-36); SGPT/ALT 18 U/L (0-35); SODIUM 143 mmol/L (137-145); Total Protein 7.7 g/dL (6.3-8.2)
[2018-09-17] MEDS ORDERED: Sodium Chloride 0.9% 1000 ML 1,000 ML ONE (22:49)
[2018-09-17] MEDS ORDERED: Klor Con 10 MEQ PO ONE ×2 (23:03→23:08)
[2018-09-17 23:28] LABS: Group A Strep NEGATIVE (NEGATIVE); INFLUENZA A NEGATIVE (NEGATIVE); INFLUENZA B NEGATIVE (NEGATIVE); RESPIRATORY SYNCTIAL VIRUS NEGATIVE (Negative)
[2018-09-17] MEDS ORDERED: solu-MEDROL 125 MG IV ONE (23:53)
[2018-09-18] MEDS ORDERED: solu-MEDROL 125 MG ONE (00:15)
[2018-09-18] MEDS ORDERED: PROVENTIL 2.5 MG/3 ML NEB IH ONE ×2 (00:20→00:25)
[2018-09-18 00:41] VITALS: PULSE 86
[2018-09-18 01:00] LABS: Appearance CLOUDY (CLEAR); Bilirubin NEGATIVE (NEGATIVE); Blood NEGATIVE Ery/ul (0-5); Calcium Oxalate Crystals 26-50 /HPF (NEGATIVE); Epithelial Cells RARE /HPF (FEW); Glucose NEGATIVE (NEGATIVE); Ketones NEGATIVE (NEGATIVE); Leukocyte Esterase NEGATIVE (NEGATIVE); Mucus MANY /HPF (NEGATIVE); Nitrite NEGATIVE (NEGATIVE); Protein,Urine Dip NEGATIVE (Negative); Specific Gravity 1.023 (1.005-1.025); Urobilinogen NEGATIVE mg/dL (0-1)
[2018-09-18 01:02] LABS: Bacteria RARE /HPF (NEGATIVE)
[2018-09-18] MEDS ORDERED: Zithromax 250 MG TABLET PO ONE (01:08)
[2018-09-18] MEDS ORDERED: Zithromax 250 MG TABLET ONE (01:12)
[2018-09-18 01:14] VITALS: O2SAT 98
[2018-09-18 01:16] VITALS: BP 119/76
--- NOTE | 2018-09-18 08:53 | XRAY ---
Indication: Cough and congestion. Comparison: June 26, 2018. Portable chest demonstrates new left mid lung discoid atelectasis/scarring. Remaining heart, lungs, and bony thorax normal again with Port-A-Cath coiled over the right lung base.
== END 2018-09-18 01:21 | disposition home or self-care (01) ==
LOC: ED 21:15
DX: J40 Bronchitis, not specified as acute or chronic (principal); J98.01 Acute bronchospasm
CPT/HCPCS: 36000; 36415; 71045; 80053; 81001; 83605; 83880; 85025; 87040; 87631; 87651; 93005; 93041; 94640; 96360; 96361; 96374; 99284; J2930; J7609; A9270-GY

== ENCOUNTER 2019-01-16 19:00 | Emergency (ER) | payer OTHER ==
--- NOTE | 2019-01-16 19:26 | ERPHSYRPT ---
- History of Present Illness Time Seen by Provider: 01/16/19 19:25 Historian: patient Exam Limitations: no limitations Physician History: 43 y/o white female with several chronic dz processes including copd, chronic diarrhea, chronic cp, recurrent abd pain, severe anxiety, and hypothyroidism and presents with recurrent diarrhea for last 1 month. pt states she has had vomiting for 2 days. pt states diarrhea is watery and runs right through her. i spoke with dr. del toro, pts pcp, a few hours prior to pt arrival. pt denies cp, denies soa. dr. del toro wanted eval and management to include labs, ivf and antiemetics. she also asks i obtain a stool specimen for gi pathogen panel. Timing/Duration: other (a month for diarrhea and 2 days for vomiting. ) Quality: cramping Abdominal Pain Onset Location: generalized abdomen Pain Radiation: no radiation Severity of Pain-Max: mild Severity of Pain-Current: mild Modifying Factors: Improves With: vomiting Associated Symptoms: denies symptoms Previous symptoms: same symptoms as today Allergies/Adverse Reactions: aspirin Allergy (Mild, Verified 01/16/19 19:30) Nausea and Vomiting codeine [Codeine] Allergy (Mild, Verified 01/16/19 19:30) Itching fluoxetine HCl [From Prozac] Allergy (Mild, Verified 01/16/19 19:30) confusion , "jumped out of a moving truck" Penicillins Allergy (Mild, Verified 01/16/19 19:30) Nausea and Vomiting promethazine HCl [From Phenergan] Allergy (Mild, Verified 01/16/19 19:30) tremors clindamycin Adverse Reaction (Verified 01/16/19 19:30) doxycycline hyclate [From Vibra-Tabs] Adverse Reaction (Verified 01/16/19 19:30) sulfamethoxazole [From Bactrim] Adverse Reaction (Verified 01/16/19 19:30) trimethoprim [From Bactrim] Adverse Reaction (Verified 01/16/19 19:30) steroid from breathing treatment Allergy (Mild, Uncoded 01/16/19 19:30) Blisters Home Medications: Diltiazem HCl [Cartia Xt] 180 mg PO QPM 09/27/14 [History] Levothyroxine Sodium 100 Mcg [Synthroid 100 Mcg] 100 mcg PO QAM 09/27/14 [ History] Simvastatin [Zocor] 20 mg PO HS 09/27/14 [History] Clopidogrel Bisulfate 75 mg [PLAVIX 75 MG Tablet] 75 mg PO DAILY 04/05/15 [History] Lamotrigine 100 mg [lamICTAL 100MG TABLET] 200 mg PO BID 09/27/15 [History ] Diazepam 5 mg [Valium 5 MG] 5 mg PO TIDPRN 02/14/16 [History] Omeprazole 20 MG [Prilosec 20 mg] 20 mg PO DAILY 04/20/16 [History] Albuterol Sulfate [Ventolin Hfa] 8 gm IH Q4HPRN PRN 12/21/16 [History] Loratadine 10 mg [Claritin 10 mg] 10 mg PO BID 07/30/17 [History] Potassium Chloride [K-Dur] 20 meq PO DAILY 08/03/17 [History] Gabapentin 1,600 mg PO BID 09/10/17 [History] Magnesium Oxide 400 mg PO DAILY 09/10/17 [History] Oxycodone / APAP 10/325 mg [Oxycodone-Acetaminophen 10-325] 1 tab PO Q4- 6HPRN PRN 09/10/17 [History] Liraglutide [Victoza 2-Jacob] 1.2 mg SQ DAILY 01/05/18 [History] Sertraline HCl 50 mg [Zoloft 50 mg Tablet] 100 mg PO BID 04/05/18 [History] Oxycodone HCl [Oxycontin] 10 mg PO BID 07/24/18 [History] Hx Tetanus, Diphtheria Vaccination/Date Given: Yes Hx Influenza Vaccination/Date Given: Yes Hx Pneumococcal Vaccination/Date Given: Yes - Review of Systems Constitutional: Weakness Eyes: No Symptoms Ears, Nose, & Throat: No Symptoms Respiratory: No Symptoms Cardiac: No Symptoms Abdominal/Gastrointestinal: Abdominal Pain (mild diffuse cramping), Nausea, Vomiting, Diarrhea Genitourinary Symptoms: No Symptoms Musculoskeletal: No Symptoms Skin: No Symptoms Neurological: No Symptoms Psychological: No Symptoms Endocrine: No Symptoms Hematologic/Lymphatic: No Symptoms Immunological/Allergic: No Symptoms All Other Systems: Reviewed and Negative - Past Medical History Pertinent Past Medical History: Yes Neurological History: Epilepsy, Seizures, Stroke ENT History: No Pertinent History Cardiac History: Arrhythmia, Congestive Heart Failure, Deep Vein Thrombosis, Hypertension Respiratory History: Bronchitis, CHF, Pulmonary Embolism, Other Endocrine Medical History: Diabetes Type II, Hypothyroidism Musculoskeletal History: Other GI Medical History: GERD, Hernia, Ulcer History: No Pertinent History Psycho-Social History: Anxiety, Bipolar, Depression, Panic Disorder Female Reproductive Disorders: Endometriosis Other Medical History: Mitral valve prolapse with regurgitation, pt wears 4 L N/ C at all times - Past Surgical History Past Surgical History: Yes Neuro Surgical History: No Pertinent History Cardiac: Cardiac Catheterization Respiratory: No Pertinent History Gastrointestinal: Cholecystectomy, Hernia Repair Genitourinary: No Pertinent History Musculoskeletal: Joint Replacement, Orthopedic Surgery Female Surgical History: Hysterectomy, Dilation & Curettage Other Surgical History: torn miniscus and implant-RT KNEE" partial scope replacement", oral surgery, melanoma removed for face twice, port placement twice with one removal. - Social History Smoking Status: Former smoker How long have you smoked: 10 years Exposure to second hand smoke: Yes Alcohol Use: None Drug Use: none Patient Lives Alone: No Significant Family History: no pertinent family hx, heart disease, diabetes, hypertension - Nursing Vital Signs Nursing Vital Signs: Initial Vital Signs Temperature 98.6 F 01/16/19 19:20 Pulse Rate 67 01/16/19 19:20 Respiratory Rate 18 01/16/19 19:20 Blood Pressure 132/81 01/16/19 19:20 O2 Sat by Pulse Oximetry 99 01/16/19 19:20 Pain Scale Pain Intensity 6 - Physical Exam General Appearance: mild distress, alert, anxiety Eye Exam: PERRL/EOMI, eyes nml inspection Ears, Nose, Throat Exam: normal ENT inspection, moist mucous membranes Neck Exam: normal inspection, non-tender, supple, full range of motion Respiratory Exam: normal breath sounds, lungs clear, airway intact, No chest tenderness, No respiratory distress, No diminished breath sounds Cardiovascular Exam: regular rate/rhythm, normal heart sounds, normal peripheral pulses Gastrointestinal/Abdomen Exam: soft, normal bowel sounds, No tenderness Pelvic Exam: not done Rectal Exam: not done Back Exam: normal inspection, normal range of motion, No CVA tenderness, No vertebral tenderness Extremity Exam: normal inspection, normal range of motion, pelvis stable Neurologic Exam: alert, oriented x 3, cooperative, tack picker II-XII nml as tested Skin Exam: normal color, warm Lymphatic Exam: adenopathy SpO2 Interpretation: normal O2 Delivery: Room Air - Course Nursing assessment & vital signs reviewed: Yes Ordered Tests: Active Orders 24 hr Category Date Time Status IV Insertion STAT Care 01/16/19 19:26 Active AMYLASE Stat Lab 01/16/19 19:38 Completed CBC W DIFF Stat Lab 01/16/19 19:38 Completed CMP Stat Lab 01/16/19 19:38 Completed LIPASE Stat Lab 01/16/19 19:38 Completed Lactic Acid Stat Lab 01/16/19 19:38 Completed Lactic Acid Stat Lab 01/16/19 22:06 Completed UA W/RFX UR CULTURE Stat Lab 01/16/19 20:50 Completed Medication Summary Discontinued Medications Generic Name Dose Route Start Last Admin Trade Name Freq PRN Reason Stop Dose Admin Hydromorphone HCl 1 mg 01/16/19 21:14 01/16/19 21:24 Hydromorphone 1 Mg/Ml Ampule IV 01/16/19 21:15 1 mg STAT ONE Administration Hydromorphone HCl Confirm 01/16/19 21:22 Hydromorphone 1 Mg/Ml Ampule Administered 01/16/19 21:23 Dose 1 mg .ROUTE .STK-MED ONE Sodium Chloride 1,000 mls @ 999 mls/hr 01/16/19 19:26 01/16/19 21:55 Sodium Chloride 0.9% 1000 Ml IV 01/16/19 20:26 Infused .Q1H1M STA Infusion Sodium Chloride Confirm 01/16/19 19:45 Sodium Chloride 0.9% 1000 Ml Administered 01/16/19 19:46 Dose 1,000 mls @ ud .ROUTE .STK-MED ONE Sodium Chloride 1,000 mls @ 999 mls/hr 01/16/19 20:48 01/16/19 21:24 Sodium Chloride 0.9% 1000 Ml IV 01/16/19 21:48 999 mls/hr .Q1H1M STA Administration Sodium Chloride Confirm 01/16/19 21:22 Sodium Chloride 0.9% 1000 Ml Administered 01/16/19 21:23 Dose 1,000 mls @ ud .ROUTE .STK-MED ONE Ondansetron HCl 4 mg 01/16/19 19:26 01/16/19 19:48 Zofran 4 Mg/2 Ml Vial IV 01/16/19 19:27 4 mg STAT ONE Administration Ondansetron HCl Confirm 01/16/19 19:44 Zofran 4 Mg/2 Ml Vial Administered 01/16/19 19:45 Dose 4 mg .ROUTE .STK-MED ONE Lab/Rad Data: Laboratory Result Diagrams 01/16/19 19:38 01/16/19 19:38 Laboratory Results 01/16/19 01/16/19 01/16/19 Range/Units 22:06 20:50 19:38 WBC (4.0-10.5) K/mm3 RBC (4.1-5.4) M/mm3 Hgb (12.0-16.0) gm/dl Hct (35-47) % MCV (78-100) fl MCH (26-32) pg MCHC (32-36) g/dl RDW (11.5-14.0) % Plt Count (150-450) K/mm3 MPV (6-9.5) fl Gran % (36.0-66.0) % Eos # (Auto) (0-0.5) Absolute Lymphs (auto) (1.0-4.6) Absolute Monos (auto) (0.0-1.3) Lymphocytes % (24.0-44.0) % Monocytes % (0.0-12.0) % Eosinophils % (0.00-5.0) % Basophils % (0.0-0.4) % Absolute Granulocytes (1.4-6.9) Basophils # (0-0.4) Sodium 143 (137-145) mmol/L Potassium 3.6 (3.5-5.1) mmol/L Chloride 105 (98-107) mmol/L Carbon Dioxide 25 (22-30) mmol/L Anion Gap 17.3 H (5-15) MEQ/L BUN 12 (7-17) mg/dL Creatinine 0.72 (0.52-1.04) mg/dL Estimated GFR > 60.0 ML/MIN Glucose 136 H (74-106) mg/dL Lactic Acid 0.4 (0.4-2.0) Calcium 10.2 (8.4-10.2) mg/dL Total Bilirubin 0.40 (0.2-1.3) mg/dL AST 31 (14-36) U/L ALT 26 (0-35) U/L Alkaline Phosphatase 126 (38-126) U/L Serum Total Protein 9.3 H (6.3-8.2) g/dL Albumin 5.2 H (3.5-5.0) g/dL Amylase 70 (30-110) U/L Lipase 57 (23-300) U/L Urine Color STRAW (YELLOW) Urine Appearance CLEAR (CLEAR) Urine pH 6.0 (5-6) Ur Specific [place] 1.003 (1.005-1.025) Urine Protein NEGATIVE (Negative) Urine Ketones NEGATIVE (NEGATIVE) Urine Blood NEGATIVE (0-5) Laurent/ul Urine Nitrite NEGATIVE (NEGATIVE) Urine Bilirubin NEGATIVE (NEGATIVE) Urine Urobilinogen NEGATIVE (0-1) mg/dL Ur Leukocyte Esterase NEGATIVE (NEGATIVE) Urine WBC (Auto) NONE (0-5) /HPF Urine RBC (Auto) NONE (0-2) /HPF U Epithel Cells (Auto) NONE (FEW) /HPF Urine Bacteria (Auto) NONE (NEGATIVE) /HPF Urine Culture Reflexed NO (NO) Urine Glucose NEGATIVE (NEGATIVE) mg/dL 01/16/19 01/16/19 Range/Units 19:38 19:38 WBC 6.0 (4.0-10.5) K/mm3 RBC 5.22 (4.1-5.4) M/mm3 Hgb 15.0 (12.0-16.0) gm/dl Hct 46.1 (35-47) % MCV 88.3 (78-100) fl MCH 28.7 (26-32) pg MCHC 32.5 (32-36) g/dl RDW 14.5 H (11.5-14.0) % Plt Count 196 (150-450) K/mm3 MPV 11.1 H (6-9.5) fl Gran % 58.9 (36.0-66.0) % Eos # (Auto) 0.28 (0-0.5) Absolute Lymphs (auto) 1.70 (1.0-4.6) Absolute Monos (auto) 0.46 (0.0-1.3) Lymphocytes % 28.5 (24.0-44.0) % Monocytes % 7.7 (0.0-12.0) % Eosinophils % 4.7 (0.00-5.0) % Basophils % 0.2 (0.0-0.4) % Absolute Granulocytes 3.51 (1.4-6.9) Basophils # 0.01 (0-0.4) Sodium (137-145) mmol/L Potassium (3.5-5.1) mmol/L Chloride (98-107) mmol/L Carbon Dioxide (22-30) mmol/L Anion Gap (5-15) MEQ/L BUN (7-17) mg/dL Creatinine (0.52-1.04) mg/dL Estimated GFR ML/MIN Glucose (74-106) mg/dL Lactic Acid 3.0 H (0.4-2.0) Calcium (8.4-10.2) mg/dL Total Bilirubin (0.2-1.3) mg/dL AST (14-36) U/L ALT (0-35) U/L Alkaline Phosphatase (38-126) U/L Serum Total Protein (6.3-8.2) g/dL Albumin (3.5-5.0) g/dL Amylase (30-110) U/L Lipase (23-300) U/L Urine Color (YELLOW) Urine Appearance (CLEAR) Urine pH (5-6) Ur Specific Sp[place]ard (1.005-1.025) Urine Protein (Negative) Urine Ketones (NEGATIVE) Urine Blood (0-5) Laurent/ul Urine Nitrite (NEGATIVE) Urine Bilirubin (NEGATIVE) Urine Urobilinogen (0-1) mg/dL Ur Leukocyte Esterase (NEGATIVE) Urine WBC (Auto) (0-5) /HPF Urine RBC (Auto) (0-2) /HPF U Epithel Cells (Auto) (FEW) /HPF Urine Bacteria (Auto) (NEGATIVE) /HPF Urine Culture Reflexed (NO) Urine Glucose (NEGATIVE) mg/dL - Progress Progress: improved, re-examined Progress Note: 01/16/19 22:26 pt has a benign abd on exam. despite pt claims of vomiting and diarrhea, pts vital signs are stable with nl temp. pts wbc nl, pt has not vomited or had diarrhea since she has been here. pts urine does not have ketones, pts lactic acid is normal at discharge. i will give pt rx for gi pathogen panel and stool specimen cup to return to lab. pt thanh ice chips, crackers and clears. no indication for admission at this time. 01/16/19 22:33 Counseled pt/family regarding: lab results, diagnosis, need for follow-up - Departure Departure Disposition: Home Clinical Impression: Chronic diarrhea, Vomiting Condition: Stable Critical Care Time: No Referrals: ERICA DEL TORO [Primary Care Provider] - Additional Instructions: clear liquid diet for 12 hours and if tolerating well, may advance diet slowly. return stool specimen to lab once you obtain. follow up with dr. del toro's office tomorrow for further management.
[2019-01-16] MEDS ORDERED: Zofran 4 MG/2 ML VIAL ONE (19:44)
[2019-01-16] MEDS ORDERED: Sodium Chloride 0.9% 1000 ML 1,000 ML ONE ×2 (19:45→21:22)
[2019-01-16] MEDS: Zofran 4 MG/2 ML VIAL IV ONE (19:48)
[2019-01-16] MEDS: Sodium Chloride 0.9% 1000 ML 1,000 ML IV STA ×2 (19:48→21:24)
[2019-01-16 19:56] LABS: BASOPHIL % 0.2 % (0.0-0.4); Basophil (Absolute #) 0.01 (0-0.4); Eosinophil % 4.7 % (0.00-5.0); Eosinophil (Absolute #) 0.28 (0-0.5); Granulocyte Absolute (ANC) 3.51 (1.4-6.9); Granulocytes % 58.9 % (36.0-66.0); Hematocrit 46.1 % (35-47); Lymphocytes % 28.5 % (24.0-44.0); Mean Cell Volume 88.3 fl (78-100); Mean Corpuscular Hemoglobin 28.7 pg (26-32); Mean Corpuscular Hgb Concent. 32.5 g/dl (32-36); Mean Platelet Volume 11.1 fl (6-9.5); Monocyte (Absolute #) 0.46 (0.0-1.3); Monocytes % 7.7 % (0.0-12.0); Platelet Count 196 K/mm3 (150-450); Red Blood Count 5.22 M/mm3 (4.1-5.4); Red Cell Distribution Width 14.5 % (11.5-14.0)
[2019-01-16 20:03] LABS: ALBUMIN 5.2 g/dL (3.5-5.0); ALKALINE PHOSPHATASE 126 U/L (38-126); AMYLASE 70 U/L (30-110); ANION GAP 17.3 MEQ/L (5-15); BLOOD UREA NITROGEN 12 mg/dL (7-17); CHLORIDE 105 mmol/L (98-107); Calcium 10.2 mg/dL (8.4-10.2); Carbon Dioxide 25 mmol/L (22-30); Creatinine 1 0.72 mg/dL (0.52-1.04); Glucose 136 mg/dL (74-106); LIPASE 57 U/L (23-300); Potassium 3.6 mmol/L (3.5-5.1); SGOT/AST 31 U/L (14-36); SGPT/ALT 26 U/L (0-35); SODIUM 143 mmol/L (137-145); Total Protein 9.3 g/dL (6.3-8.2)
[2019-01-16 21:13] LABS: Appearance CLEAR (CLEAR); Bilirubin NEGATIVE (NEGATIVE); Blood NEGATIVE Ery/ul (0-5); Glucose NEGATIVE (NEGATIVE); Ketones NEGATIVE (NEGATIVE); Leukocyte Esterase NEGATIVE (NEGATIVE); Nitrite NEGATIVE (NEGATIVE); Protein,Urine Dip NEGATIVE (Negative); Specific Gravity 1.003 (1.005-1.025); Urobilinogen NEGATIVE mg/dL (0-1)
[2019-01-16] MEDS ORDERED: Hydromorphone 1 mg/ml Ampule ONE (21:22)
[2019-01-16] MEDS: Hydromorphone 1 mg/ml Ampule IV ONE (21:24)
[2019-01-16 22:35] VITALS: BP 120/78; PULSE 64; O2SAT 96
== END 2019-01-16 22:46 | disposition home or self-care (01) ==
LOC: ED 19:00
DX: K52.9 Noninfective gastroenteritis and colitis, unspecified (principal); R11.10 Vomiting, unspecified
CPT/HCPCS: 36000; 36415; 80053; 81001; 82150; 83605; 83690; 85025; 96360; 96361; 96374; 96375; 99284; J1170; J2405

== ENCOUNTER 2019-01-21 16:39 | Observation (INO) | payer OTHER ==
[2019-01-21] MEDS ORDERED: Lactated Ringers 500 ML IV SCH (17:00)
[2019-01-21] MEDS ORDERED: Zithromax 500 MG/ 250 ML NaCl Premix 500 MG/250 ML IVPB IV SCH (18:00)
[2019-01-21] MEDS ORDERED: Lactated Ringers 500 ML IV ONE (20:04)
[2019-01-21 22:01] LABS: Appearance CLEAR (CLEAR); Bilirubin NEGATIVE (NEGATIVE); Blood NEGATIVE Ery/ul (0-5); Epithelial Cells RARE /HPF (FEW); Glucose NEGATIVE (NEGATIVE); Hyaline Casts 0-2 /LPF (0-2); Ketones NEGATIVE (NEGATIVE); Leukocyte Esterase NEGATIVE (NEGATIVE); Mucus SLIGHT /HPF (NEGATIVE); Nitrite NEGATIVE (NEGATIVE); Protein,Urine Dip NEGATIVE (Negative); Specific Gravity 1.003 (1.005-1.025); Urobilinogen NEGATIVE mg/dL (0-1); WBC 0-2 /HPF (0-5)
[2019-01-21] MEDS ORDERED: Phenergan 25 MG INJ IV PRN (22:14)
[2019-01-21] MEDS ORDERED: Valium 5 MG PO PRN (23:00)
[2019-01-21] MEDS ORDERED: PROVENTIL COMMON CANISTER IH SCH (23:30)
[2019-01-21 23:43] LABS: BASOPHIL % 0.1 % (0.0-0.4); Basophil (Absolute #) 0.01 (0-0.4); Eosinophil % 4.1 % (0.00-5.0); Eosinophil (Absolute #) 0.28 (0-0.5); Granulocyte Absolute (ANC) 3.93 (1.4-6.9); Granulocytes % 57.9 % (36.0-66.0); Hematocrit 42.6 % (35-47); Hemoglobin 14.1 gm/dl (12.0-16.0); Lymphocyte (Absolute #) 1.98 (1.0-4.6); Lymphocytes % 29.1 % (24.0-44.0); Mean Cell Volume 87.7 fl (78-100); Mean Corpuscular Hgb Concent. 33.1 g/dl (32-36); Mean Platelet Volume 11.3 fl (6-9.5); Monocytes % 8.8 % (0.0-12.0); Platelet Count 192 K/mm3 (150-450); Red Blood Count 4.86 M/mm3 (4.1-5.4); Red Cell Distribution Width 14.4 % (11.5-14.0); White Blood Count 6.8 K/mm3 (4.0-10.5)
[2019-01-21] MEDS ORDERED: PHENERGAN 25 MG PO PRN (23:43)
[2019-01-21] MEDS ORDERED: PHENERGAN 25 MG ONE (23:50)
[2019-01-21 23:53] LABS: ALBUMIN 4.8 g/dL (3.5-5.0); ALKALINE PHOSPHATASE 131 U/L (38-126); ANION GAP 13.3 MEQ/L (5-15); BLOOD UREA NITROGEN 13 mg/dL (7-17); CHLORIDE 107 mmol/L (98-107); Calcium 9.9 mg/dL (8.4-10.2); Carbon Dioxide 26 mmol/L (22-30); Creatinine 1 0.57 mg/dL (0.52-1.04); Glucose 85 mg/dL (74-106); Potassium 3.6 mmol/L (3.5-5.1); SGOT/AST 30 U/L (14-36); SGPT/ALT 22 U/L (0-35); SODIUM 143 mmol/L (137-145); Total Protein 8.3 g/dL (6.3-8.2)
[2019-01-22] MEDS: CLARITIN 10 MG PO SCH ×3 (00:02→21:57)
[2019-01-22] MEDS: lamICTAL 100MG TABLET PO SCH ×3 (00:02→21:58)
[2019-01-22] MEDS: Cardizem CD 180 MG PO SCH (00:02)
[2019-01-22] MEDS: Klor Con 10 MEQ PO SCH ×2 (00:02→21:58)
[2019-01-22] MEDS: Neurontin 400 MG PO SCH ×5 (00:03→21:57)
[2019-01-22] MEDS: Oxycontin 10 MG ER PO SCH ×3 (00:03→22:30)
[2019-01-22] MEDS: MAG-OX 400 PO SCH ×3 (00:03→21:56)
[2019-01-22] MEDS: LIORESAL 10 MG PO SCH ×4 (00:03→21:57)
[2019-01-22] MEDS: Zithromax 250 MG TABLET PO SCH ×2 (00:04→09:37)
[2019-01-22] MEDS: ZOLOFT 50 MG TABLET PO SCH ×3 (00:04→21:57)
[2019-01-22] MEDS: ZOCOR 20MG PO SCH ×2 (00:04→21:57)
[2019-01-22] MEDS: OXYCODONE-ACETAMINOPHEN 10-325 PO PRN ×2 (04:18→10:50)
[2019-01-22 05:57] LABS: ALBUMIN 4.5 g/dL (3.5-5.0); ALKALINE PHOSPHATASE 108 U/L (38-126); ANION GAP 13.6 MEQ/L (5-15); BLOOD UREA NITROGEN 12 mg/dL (7-17); CHLORIDE 105 mmol/L (98-107); Calcium 9.8 mg/dL (8.4-10.2); Carbon Dioxide 30 mmol/L (22-30); Creatinine 1 0.65 mg/dL (0.52-1.04); Glucose 97 mg/dL (74-106); Potassium 4.5 mmol/L (3.5-5.1); SGOT/AST 33 U/L (14-36); SGPT/ALT 22 U/L (0-35); SODIUM 145 mmol/L (137-145); Total Protein 7.7 g/dL (6.3-8.2)
[2019-01-22] MEDS ORDERED: Flovent 110 Mcg COMMON CANISTER IH SCH (07:00)
[2019-01-22] MEDS ORDERED: PROVENTIL COMMON CANISTER IH PRN (07:12)
[2019-01-22] MEDS: PROVENTIL COMMON CANISTER IH SCH ×4 (07:30→19:57)
[2019-01-22] MEDS: Carafate 1 GM PO SCH ×4 (08:02→21:57)
--- NOTE | 2019-01-22 08:23 | PCM.HP ---
History of Present Illness - Chief Complaint Chief Complaint: e coli, diarrhea History of Present Illness: is a 43 year old female pt of mine from [facility] with PMHx pseudoseizure, asthma, DM, diabetic neuropathy, COPD on O2, anemia, depression, goiter, migraine, and chronic pain who was admitted from home with diarrhea. She says she's had diarrhea for a month but it's been worse for the past 2 weeks. She has had 4-6 stools a day and anything she eats "goes right through me." She did have a GI panel at home positive for E. coli (not shiga toxin producing). When she was admitted, she was stuck several times unsuccessfully for IV so was given po zithromax. She was given full liquid diet. RN was unaware of any stools but pt says she didn't sleep last night and had several stools here. Pt also c/o 6/10 generalized abd pain that is constant and not relieved by BMs. Port was last accessed 1 yr ago. Placed by Dr. Renner. - Review of Systems Constitutional: Weight Loss (she states 30lb; per our records 14lb but her last weight was done Jul 2018) Respiratory: Short Of Breath (chronic) Cardiac: Other (she states she's "passed out" but she is aware of voices) Abdominal/Gastrointestinal: Abdominal Pain, Nausea, Diarrhea, Hematochezia ( mild when she has many BMs) Musculoskeletal: Arthralgias Neurological: Dizziness Psychological: Anxiety, Depression, No Suicidal Ideations, No Homicidal Ideations All Other Systems: Reviewed and Negative Medications & Allergies Home Medications: Home Medication List Diltiazem HCl [Cartia Xt] 180 mg PO QPM 09/27/14 [History Confirmed 01/21/19] Levothyroxine Sodium 100 Mcg [Synthroid 100 Mcg] 100 mcg PO QAM 09/27/14 [ History Confirmed 01/21/19] Simvastatin [Zocor] 20 mg PO HS 09/27/14 [History Confirmed 01/21/19] Clopidogrel Bisulfate 75 mg [PLAVIX 75 MG Tablet] 75 mg PO DAILY 04/05/15 [History Confirmed 01/21/19] Lamotrigine 100 mg [lamICTAL 100MG TABLET] 200 mg PO BID 09/27/15 [ History Confirmed 01/21/19] Bumetanide 1 mg [Bumex 1 mg] 1 mg PO DAILY #30 tablet 10/02/15 [Rx Confirmed 01/21/19] Diazepam 5 mg [Valium 5 MG] 5 mg PO TIDPRN 02/14/16 [History Confirmed ] Omeprazole 20 MG [Prilosec 20 mg] 20 mg PO DAILY 04/20/16 [History Confirmed ] Sucralfate 1 gm [Carafate 1 GM] 1 g PO ACHS #28 tablet 10/16/16 [Rx Confirmed 01/21/19] Albuterol Sulfate [Ventolin Hfa] 8 gm IH Q4HPRN PRN 12/21/16 [History Confirmed 01/21/19] Loratadine 10 mg [Claritin 10 mg] 10 mg PO BID 07/30/17 [History Confirmed 01/21/19] Potassium Chloride [K-Dur] 20 meq PO HS 08/03/17 [History Confirmed 01/21/19] Gabapentin 1,600 mg PO QID 09/10/17 [History Confirmed 01/21/19] Magnesium Oxide 400 mg PO BID 09/10/17 [History Confirmed 01/21/19] Oxycodone / APAP 10/325 mg [Oxycodone-Acetaminophen 10-325] 1 tab PO Q4- 6HPRN PRN 09/10/17 [History Confirmed 01/21/19] Sertraline HCl 50 mg [Zoloft 50 mg Tablet] 100 mg PO BID 04/05/18 [History Confirmed 01/21/19] Fluticasone Propionate [Flonase NASAL] 0 gm NS DAILY 30 Days #1 bottle [Rx Confirmed 01/21/19] Oxycodone HCl [Oxycontin] 10 mg PO BID 07/24/18 [History Confirmed 01/21/19] Baclofen 10 mg [Lioresal 10 mg] 10 mg PO TID #30 tablet 07/25/18 [Rx Confirmed 01/21/19] Cyanocobalamin/Cobamamide [B-12 5,000 Mcg Sublingual Tab] 5,000 mcg SL QID 01/21 [History Confirmed 01/21/19] Ergocalciferol (Vitamin D2) [Vitamin D2] 50,000 units PO WEEKLY 01/21/19 [ History Confirmed 01/21/19] Fluticasone Propionate [Flovent 110 Mcg MDI] 110 mcg IH BID 01/21/19 [ History Confirmed 01/21/19] Folic Acid 1 mg PO BID 01/21/19 [History Confirmed 01/21/19] Lactobacillus Acidophilus [Probiotic Acidophilus] 1 each PO DAILY 01/21/19 [ History Confirmed 01/21/19] Propranolol HCl [Propranolol HCl ER] 80 mg PO DAILY 01/21/19 [History Confirmed 01/21/19] Allergies/Adverse Reactions: Allergies Allergy/AdvReac Type Severity Reaction Status Date / Time aspirin Allergy Mild Nausea and Verified 01/16/19 19:30 Vomiting codeine [Codeine] Allergy Mild Itching Verified 01/16/19 19:30 fluoxetine HCl [From Prozac] Allergy Mild Verified 01/16/19 19:30 Penicillins Allergy Mild Nausea and Verified 01/16/19 19:30 Vomiting promethazine HCl Allergy Mild tremors Verified 01/16/19 19:30 [From Phenergan] clindamycin AdvReac Verified 01/16/19 19:30 doxycycline hyclate AdvReac Verified 01/16/19 19:30 [From Vibra-Tabs] sulfamethoxazole AdvReac Verified 01/16/19 19:30 [From Bactrim] trimethoprim [From Bactrim] AdvReac Verified 01/16/19 19:30 steroid from breathing Allergy Mild Blisters Uncoded 01/16/19 19:30 treatment - Past Medical History Past Medical History: Yes Neurological History: Epilepsy, Seizures, Stroke ENT History: No Pertinent History Cardiac History: Arrhythmia, Congestive Heart Failure, Deep Vein Thrombosis, Hypertension Respiratory History: CHF, Pulmonary Embolism, Other Endocrine Medical History: Diabetes Type II, Hypothyroidism Musculoskelatal History: Other GI Medical History: GERD, Hernia, Ulcer History: No Pertinent History Pyscho-Social History: Anxiety, Bipolar, Depression, Panic Disorder Reproductive Disorders: Endometriosis Comment: Mitral valve prolapse with regurgitation, pt wears 4 L N/C at all times - Female History Are you now?: No - Past Surgical History Past Surgical History: Yes Neuro Surgical History: No Pertinent History Cardiac History: Cardiac Catheterization Respiratory Surgery: No Pertinent History GI Surgical History: Cholecystectomy, Hernia Repair Genitourinary Surgical Hx: No Pertinent History Musculskeletal Surgical Hx: Joint Replacement, Orthopedic Surgery Female Surgical History: Hysterectomy, Dilation & Curettage Other Surgical History: torn miniscus and implant-RT KNEE" partial scope replacement", oral surgery, melanoma removed for face twice, port placement twice with one removal. - Social History Smoking Status: Former smoker How long have you smoked: 10 years Exposure to second hand smoke: Yes Alcohol: None Drug Use: none Significant Family History: no pertinent family hx, heart disease, diabetes, hypertension - Physical Exam Vital Signs: Vital Signs - 24 hr Temp Pulse Resp BP Pulse Ox 01/22/19 07:47 97.7 F 54 L 16 108/61 99 01/22/19 04:00 98.5 F 57 L 16 125/71 99 01/22/19 00:27 98.4 F 61 16 106/75 97 01/21/19 23:30 68 98 01/21/19 21:12 98.5 F 63 18 124/78 99 Oxygen-Last 24 hours O2 Percentage 4 Liters = 36% O2 Percentage 2 Liters = 28% O2 Percentage 4 Liters = 36% General Appearance: no apparent distress, alert Neurologic Exam: oriented x 3, cooperative Eye Exam: eyes nml inspection Ears, Nose, Throat Exam: moist mucous membranes Neck Exam: normal inspection Respiratory Exam: normal breath sounds, lungs clear, other (port sit in R upper chest is well healed but ttp; no edema/erythema/crepitus/induration/fluctuance/ exudate), No crackles/rales, No rhonchi, No wheezing Cardiovascular Exam: regular rate/rhythm, normal heart sounds, No murmur Gastrointestinal/Abdomen Exam: soft, normal bowel sounds, tenderness (diffuse, worse in lower abd and periumbilical and epigastrum), No distention, No mass, No guarding, No rebound Back Exam: normal inspection, No rash Extremity Exam: normal inspection, No pedal edema, No swelling Skin Exam: normal color, warm, dry, No rash Results - Labs Lab/Micro Results: Accuchecks Date 01/22/19 Time 07:30 Accucheck Value: 130 Accucheck Value: 89 Lab Results-Last 24 Hours 01/21/19 01/21/19 01/21/19 Range/Units 21:30 23:35 23:35 WBC 6.8 (4.0-10.5) K/mm3 RBC 4.86 (4.1-5.4) M/mm3 Hgb 14.1 (12.0-16.0) gm/dl Hct 42.6 (35-47) % MCV 87.7 (78-100) fl MCH 29.0 (26-32) pg MCHC 33.1 (32-36) g/dl RDW 14.4 H (11.5-14.0) % Plt Count 192 (150-450) K/mm3 MPV 11.3 H (6-9.5) fl Gran % 57.9 (36.0-66.0) % Eos # (Auto) 0.28 (0-0.5) Absolute Lymphs (auto) 1.98 (1.0-4.6) Absolute Monos (auto) 0.60 (0.0-1.3) Lymphocytes % 29.1 (24.0-44.0) % Monocytes % 8.8 (0.0-12.0) % Eosinophils % 4.1 (0.00-5.0) % Basophils % 0.1 (0.0-0.4) % Absolute Granulocytes 3.93 (1.4-6.9) Basophils # 0.01 (0-0.4) Sodium 143 (137-145) mmol/L Potassium 3.6 (3.5-5.1) mmol/L Chloride 107 (98-107) mmol/L Carbon Dioxide 26 (22-30) mmol/L Anion Gap 13.3 (5-15) MEQ/L BUN 13 (7-17) mg/dL Creatinine 0.57 (0.52-1.04) mg/dL Estimated GFR > 60.0 ML/MIN Glucose 85 (74-106) mg/dL Calcium 9.9 (8.4-10.2) mg/dL Total Bilirubin 0.40 (0.2-1.3) mg/dL AST 30 (14-36) U/L ALT 22 (0-35) U/L Alkaline Phosphatase 131 H (38-126) U/L Serum Total Protein 8.3 H (6.3-8.2) g/dL Albumin 4.8 (3.5-5.0) g/dL Urine Color STRAW (YELLOW) Urine Appearance CLEAR (CLEAR) Urine pH 6.0 (5-6) Ur Specific [place] 1.003 (1.005-1.025) Urine Protein NEGATIVE (Negative) Urine Ketones NEGATIVE (NEGATIVE) Urine Blood NEGATIVE (0-5) Laurent/ul Urine Nitrite NEGATIVE (NEGATIVE) Urine Bilirubin NEGATIVE (NEGATIVE) Urine Urobilinogen NEGATIVE (0-1) mg/dL Ur Leukocyte Esterase NEGATIVE (NEGATIVE) Urine WBC (Auto) 0-2 (0-5) /HPF Urine RBC (Auto) NONE (0-2) /HPF U Hyaline Cast (Auto) 0-2 (0-2) /LPF U Epithel Cells (Auto) RARE (FEW) /HPF Urine Bacteria (Auto) NONE (NEGATIVE) /HPF Urine Mucus (Auto) SLIGHT (NEGATIVE) /HPF Urine Glucose NEGATIVE (NEGATIVE) mg/dL 01/22/19 Range/Units 05:10 WBC (4.0-10.5) K/mm3 RBC (4.1-5.4) M/mm3 Hgb (12.0-16.0) gm/dl Hct (35-47) % MCV (78-100) fl MCH (26-32) pg MCHC (32-36) g/dl RDW (11.5-14.0) % Plt Count (150-450) K/mm3 MPV (6-9.5) fl Gran % (36.0-66.0) % Eos # (Auto) (0-0.5) Absolute Lymphs (auto) (1.0-4.6) Absolute Monos (auto) (0.0-1.3) Lymphocytes % (24.0-44.0) % Monocytes % (0.0-12.0) % Eosinophils % (0.00-5.0) % Basophils % (0.0-0.4) % Absolute Granulocytes (1.4-6.9) Basophils # (0-0.4) Sodium 145 (137-145) mmol/L Potassium 4.5 D (3.5-5.1) mmol/L Chloride 105 (98-107) mmol/L Carbon Dioxide 30 (22-30) mmol/L Anion Gap 13.6 (5-15) MEQ/L BUN 12 (7-17) mg/dL Creatinine 0.65 (0.52-1.04) mg/dL Estimated GFR > 60.0 ML/MIN Glucose 97 (74-106) mg/dL Calcium 9.8 (8.4-10.2) mg/dL Total Bilirubin 0.30 (0.2-1.3) mg/dL AST 33 (14-36) U/L ALT 22 (0-35) U/L Alkaline Phosphatase 108 (38-126) U/L Serum Total Protein 7.7 (6.3-8.2) g/dL Albumin 4.5 (3.5-5.0) g/dL Urine Color (YELLOW) Urine Appearance (CLEAR) Urine pH (5-6) Ur Specific [place] (1.005-1.025) Urine Protein (Negative) Urine Ketones (NEGATIVE) Urine Blood (0-5) Laurent/ul Urine Nitrite (NEGATIVE) Urine Bilirubin (NEGATIVE) Urine Urobilinogen (0-1) mg/dL Ur Leukocyte Esterase (NEGATIVE) Urine WBC (Auto) (0-5) /HPF Urine RBC (Auto) (0-2) /HPF U Hyaline Cast (Auto) (0-2) /LPF U Epithel Cells (Auto) (FEW) /HPF Urine Bacteria (Auto) (NEGATIVE) /HPF Urine Mucus (Auto) (NEGATIVE) /HPF Urine Glucose (NEGATIVE) mg/dL Accuchecks Date 01/22/19 Time 07:30 Accucheck Value: 130 Accucheck Value: 89 - Radiology Impressions Radiology Exams & Impressions: Radiology Procedures Category Date Time Status CHEST 2 VIEWS (PA AND LAT) Routine Exams 01/22/19 Ordered - Other Procedures and Tests Respiratory Therapy 01/21/19 23:13 Oxygen Nasal Cannula 4 lpm 01/21/19 23:22 Respiratory Therapy Assessment DAILY 01/21/19 23:23 Peak Expiratory Flow Rate ONCE Assessment/Plan (1) Diarrhea Current Visit: Yes Status: Acute Qualifiers: Diarrhea type: infectious Qualified Code(s): A09 - Infectious gastroenteritis and colitis, unspecified Assessment & Plan: E. coli, not shiga-like toxin producing. Has been going on for some time so zithromax was started yesterday. She reports ongoing diarrhea; while she was not dehydrated per labs on admission, I would like to go ahead and run some IVF. Code(s): R19.7 - DIARRHEA, UNSPECIFIED (2) Poor intravenous access Current Visit: Yes Status: Chronic Assessment & Plan: she has a port, however thinks it can't be accessed because it's "twisted" - will have radiology inject and check XR. Consult surgery tomorrow if unable to access port. Code(s): Z78.9 - OTHER SPECIFIED HEALTH STATUS (3) COPD (chronic obstructive pulmonary disease) Current Visit: No Status: Chronic Qualifiers: COPD type: unspecified COPD Qualified Code(s): J44.9 - Chronic obstructive pulmonary disease, unspecified (4) Diabetes type 2, controlled Current Visit: No Status: Chronic Qualifiers: Diabetes mellitus detention insulin use: with detention use Diabetes mellitus complication status: without complication Qualified Code(s): E11.9 - Type 2 diabetes mellitus without complications; Z79.4 - custodial (current) use of insulin Code(s): E11.9 - TYPE 2 DIABETES MELLITUS WITHOUT COMPLICATIONS (5) Hypothyroidism Current Visit: No Status: Chronic Qualifiers: Hypothyroidism type: acquired Qualified Code(s): E03.9 - Hypothyroidism, unspecified Code(s): E03.9 - HYPOTHYROIDISM, UNSPECIFIED (6) Polypharmacy Current Visit: No Status: Chronic Assessment & Plan: WIll try to wean down on some meds when she discharges to home. Code(s): Z79.899 - OTHER AIRBRUSH ARTIST TECHNICAL (CURRENT) DRUG THERAPY
[2019-01-22 08:39] LABS: BASOPHIL % 0.2 % (0.0-0.4); Basophil (Absolute #) 0.01 (0-0.4); Eosinophil (Absolute #) 0.32 (0-0.5); Granulocyte Absolute (ANC) 3.11 (1.4-6.9); Granulocytes % 49.1 % (36.0-66.0); Hematocrit 41.4 % (35-47); Hemoglobin 13.4 gm/dl (12.0-16.0); Lymphocyte (Absolute #) 2.19 (1.0-4.6); Lymphocytes % 34.5 % (24.0-44.0); Mean Corpuscular Hemoglobin 28.8 pg (26-32); Mean Corpuscular Hgb Concent. 32.4 g/dl (32-36); Monocyte (Absolute #) 0.71 (0.0-1.3); Monocytes % 11.2 % (0.0-12.0); Platelet Count 187 K/mm3 (150-450); Red Blood Count 4.65 M/mm3 (4.1-5.4); Red Cell Distribution Width 14.4 % (11.5-14.0); White Blood Count 6.3 K/mm3 (4.0-10.5)
[2019-01-22] MEDS ORDERED: NovoLOG Insulin SQ PRN (08:42)
[2019-01-22] MEDS: ENOXAPARIN SODIUM SQ SCH (09:41)
--- NOTE | 2019-01-22 09:55 | XRAY ---
Indication: Evaluate port. Comparison: September 17, 2018. Portable chest unchanged again demonstrating Port-A-Cath coiled over the right lung base with left lung base discoid atelectasis/scarring. Remaining heart, lungs, and bony thorax unremarkable. No new/acute findings.
[2019-01-22] MEDS ORDERED: LACTOBACILLUS ACIDOPHILUS PO SCH (10:00)
[2019-01-22] MEDS ORDERED: Flovent 110 Mcg MDI IH SCH (10:00)
[2019-01-22] MEDS ORDERED: NON-FORMULARY ITEM (Propranolol Hcl [Propranolol Hcl Er] 80 MG) PO SCH (10:00)
[2019-01-22] MEDS: Protonix 40MG Tablet PO SCH (10:22)
[2019-01-22] MEDS: SYNTHROID 100 MCG PO SCH (10:23)
[2019-01-22] MEDS: Acidophilus TABLET PO SCH (10:23)
[2019-01-22] MEDS: PLAVIX 75 MG Tablet PO SCH (10:23)
[2019-01-22] MEDS: Flonase NASAL NS SCH (10:24)
[2019-01-22] MEDS: NON-FORMULARY ITEM PO SCH (10:51)
[2019-01-22] MEDS ORDERED: Sodium Chloride 0.9% 1000 ML 1,000 ML IV SCH (15:30)
[2019-01-22] MEDS ORDERED: XYLOCAINE 1% HCL 20 ML MDV ONE ×2 (16:36→17:34)
[2019-01-22] MEDS ORDERED: Lactated Ringers 1,000 ML IV ONE (16:37)
[2019-01-22] MEDS ORDERED: DIPRIVAN 200 MG/20 ML IV ONE ×2 (16:56→17:45)
[2019-01-22] MEDS: PATIENT OWN MEDICATION IH SCH (17:05)
[2019-01-22] MEDS ORDERED: PHENYLEPHRINE HCL ONE (17:21)
[2019-01-22] MEDS ORDERED: Ephedrine Sulfate 50 MG/ML ONE (17:24)
[2019-01-22] MEDS ORDERED: EPINEPHRINE 1MG/ML AMP ONE (17:39)
[2019-01-22] MEDS: Sodium Chloride 0.9% 1000 ML 1,000 ML IV SCH (18:57)
[2019-01-22] MEDS: TYLENOL 325 MG PO PRN (19:51)
[2019-01-23] MEDS: Cardizem CD 180 MG PO SCH ×2 (00:39→20:52)
[2019-01-23] MEDS: OXYCODONE-ACETAMINOPHEN 10-325 PO PRN ×2 (01:24→14:37)
[2019-01-23] MEDS: TYLENOL 325 MG PO PRN ×2 (05:00→21:15)
[2019-01-23] MEDS: PATIENT OWN MEDICATION IH SCH (07:08)
[2019-01-23] MEDS: PROVENTIL COMMON CANISTER IH SCH ×4 (07:08→20:52)
[2019-01-23] MEDS: Carafate 1 GM PO SCH ×4 (07:56→20:52)
[2019-01-23] MEDS: Sodium Chloride 0.9% 1000 ML 1,000 ML IV SCH ×2 (08:11→20:24)
--- NOTE | 2019-01-23 08:49 | XRAY ---
4 seconds fluoroscopy time in surgery for Port placement in surgery. No images saved.
--- NOTE | 2019-01-23 09:06 | PCM.NOTE ---
Date and Time: 01/23/19901 Subjective Assessment: Pt had her port revised yesterday by Dr. Devries, thank you. Is thanh po and would like to try a regular diet. She had a few episodes of diarrhea; less than previously. - Review of Systems Constitutional: No Fever Abdominal/Gastrointestinal: Diarrhea, No Vomiting Objective Exam General Appearance: no apparent distress, alert, other (wakes to touch) Neurologic Exam: oriented x 3, cooperative Skin Exam: normal color, warm, dry, No rash Respiratory Exam: lungs clear, diminished breath sounds, No crackles/rales, No rhonchi, No wheezing Cardiovascular Exam: regular rate/rhythm, normal heart sounds, No murmur Gastrointestinal/Abdomen Exam: soft, normal bowel sounds, tenderness (diffuse, more so in RUQ), No distention, No mass, No guarding, No rebound Extremity Exam: normal inspection, No pedal edema, No swelling Back Exam: normal inspection, No rash OBJECTIVE DATA Vital Signs: Vital Signs - 24 hr Temp Pulse Resp BP Pulse Ox 01/23/19 08:00 97.4 F 56 L 16 87/52 99 01/23/19 07:10 65 16 99 01/23/19 04:25 98.3 F 54 L 16 84/50 98 01/23/19 00:00 97.4 F 56 L 16 94/51 99 01/22/19 22:15 97.6 F 58 L 16 97/54 100 01/22/19 21:15 97.6 F 57 L 17 93/56 98 01/22/19 20:15 97.8 F 49 L 14 105/61 97 01/22/19 20:03 54 L 16 98 01/22/19 19:45 97.1 F 52 L 16 89/63 100 01/22/19 19:15 45 L 16 100/63 99 01/22/19 19:00 97.7 F 52 L 16 91/53 100 01/22/19 17:00 98.1 F 46 L 16 93/51 99 01/22/19 16:00 98.1 F 46 L 16 93/51 99 01/22/19 15:17 46 L 16 99 01/22/19 11:56 97.6 F 65 16 106/59 97 01/22/19 10:47 65 16 97 Oxygen-Last 24 hours O2 Percentage 4 Liters = 36% O2 Percentage 4 Liters = 36% O2 Percentage 4 Liters = 36% O2 Percentage 4 Liters = 36% O2 Percentage 4 Liters = 36% O2 Percentage 4 Liters = 36% O2 Percentage 4 Liters = 36% O2 Percentage 4 Liters = 36% O2 Percentage 5 Liters = 40% O2 Percentage 4 Liters = 36% O2 Percentage 4 Liters = 36% Pain Assessment - Last Documented Pain Intensity 8 Pain Scale Used 0-10 Pain Scale,FLACC Intake and Output: Intake & Output 01/20/19 01/21/19 01/22/19 01/23/19 11:59 11:59 11:59 11:59 Intake Total 900 2396 Output Total 600 1800 Balance 300 596 Weight 86.4 kg 86.4 kg Lab Results: Accuchecks Date 01/23/19 Date 01/22/19 Date 01/22/19 Time 07:57 Time 16:30 Time 11:30 Accucheck Value: 162 Accucheck Value: 155 Accucheck Value: 91 Accucheck Value: 114 Lab Results-Last 24 Hours 01/22/19 Range/Units 05:00 Hemoglobin A1c 5.36 (4.5-6.0) % Radiology Exams: Radiology Procedures Category Date Time Status CHEST 1 VIEW (PORTABLE) Routine Exams 01/22/19 09:32 Completed FLUOROSCOPY FOR VENOUS ACCESS Routine Exams 01/22/19 08:37 Completed Assessment/Plan (1) Diarrhea Current Visit: Yes Status: Acute Qualifiers: Diarrhea type: infectious Qualified Code(s): A09 - Infectious gastroenteritis and colitis, unspecified Assessment & Plan: E. coli. On zithromax day #3. If she thanh po well today, home tomorrow. Code(s): R19.7 - DIARRHEA, UNSPECIFIED (2) Poor intravenous access Current Visit: Yes Status: Resolved Code(s): Z78.9 - OTHER SPECIFIED HEALTH STATUS (3) COPD (chronic obstructive pulmonary disease) Current Visit: No Status: Chronic Qualifiers: COPD type: unspecified COPD Qualified Code(s): J44.9 - Chronic obstructive pulmonary disease, unspecified (4) Diabetes type 2, controlled Current Visit: No Status: Chronic Qualifiers: Diabetes mellitus correction insulin use: with correction use Diabetes mellitus complication status: without complication Qualified Code(s): E11.9 - Type 2 diabetes mellitus without complications; Z79.4 - manager college (current) use of insulin Code(s): E11.9 - TYPE 2 DIABETES MELLITUS WITHOUT COMPLICATIONS (5) Hypothyroidism Current Visit: No Status: Chronic Qualifiers: Hypothyroidism type: acquired Qualified Code(s): E03.9 - Hypothyroidism, unspecified Code(s): E03.9 - HYPOTHYROIDISM, UNSPECIFIED (6) Polypharmacy Current Visit: No Status: Chronic Code(s): Z79.899 - OTHER VEGETABLE INSPECTOR ( CURRENT) DRUG THERAPY
--- NOTE | 2019-01-23 09:38 | CONS ---
CONSULT DATE: 01/22/2019 HISTORY: This is a 43 year-old female with multiple medical problems of pseudoseizures, asthma, diabetic neuropathy, diabetes, chronic obstructive pulmonary disease on oxygen, anemia, depression, migraines, chronic pain and problems with diarrhea worse over the past two weeks. She had Escherichia coli in the past. She has prior history of port but apparently it pulled free and coiled for some reason. PAST MEDICAL HISTORY: Multiple medical problems as mentioned above. PAST SURGICAL HISTORY: Ports and port replacements in the past. Cholecystectomy. Hernia repair. Orthopedic surgery in the past. D&C in the past. She had melanoma removed from face in the past. MEDICATIONS: Diltiazem, levothyroxine for hypothyroidism, Simvastatin for hypercholesterolemia, clopidogrel, lamotrigine, Bumex, Valium, Prilosec, Carafate, Ventolin HFA, Claritin, K-Dur, gabapentin, magnesium oxide, oxycodone, Zoloft, Flonase, OxyContin, Lioresal, B12, vitamin D2, Flovent, Acidophilus, propranolol and folic acid. ALLERGIES: ASPIRIN. CODEINE. FLUOXETINE. PENICILLIN. PROMETHIZINE. CLINDAMYCIN. DOXYCYCLINE. SULFA. SIMETHICONE. TRIMETHOPRIM. STEROID. SOCIAL HISTORY: Smoking in the past. No alcohol abuse. REVIEW OF SYSTEMS: Fourteen systems reviewed per admission assessment and as noted above. LAB DATA AND TESTS: PLT 192,000. White count 6.8. PHYSICAL EXAMINATION: GENERAL: A chronically ill female. HEENT: Sclera nonicteric. NECK: No JVD. CHEST: Equal excursion, nonlabored breathing. Port site is fine. No gross infection, no erosion currently. Port-A-Cath is coiled on the chest and having trouble accessing it. CVS: Regular rate and rhythm. ABDOMEN: Nondistended. EXTREMITIES: No cyanosis. NEURO: Alert, moving extremities grossly symmetrically. IMPRESSION: Need for hyperion administrator IV access, poor peripheral access. She is having problems with port malfunction. I feel she would benefit from placement of new port and they said they could not do a portagram on the patient. I feel she is a candidate to place a new port and removal of the old. Risks and benefits explained in detail but not limited to bleeding or infection, risk of thrombosis, risk of pneumothorax, risk of deep venous thrombosis. She is at a little bit higher risk of bleeding as she has been on Plavix but I feel she needs access now rather than waiting a week to come off the Plavix. She accepts the increased risk of bleeding or bruising, general risk of aches and pains, risk of port or catheter fracture or failure possibly requiring removal or replacement, risk of infection possibly requiring removal, general risk of anesthesia, deep venous thrombosis, pulmonary embolism, pneumonia, but not limited to. She understands and agrees to the planned procedure, will proceed with removal of old port and placement of new Port-A-Cath when OR time available.
--- NOTE | 2019-01-23 10:18 | OP ---
SURGERY DATE/TIME: 01/22/2019 1714 PREOPERATIVE DIAGNOSIS: Malfunctioning, dysfunctional right chest Port-A-Cath, need for removal and replacement for nursing home IV access with frequent admissions and limited peripheral IV access. POSTOPERATIVE DIAGNOSIS: Malfunctioning, dysfunctional right chest Port-A-Cath, need for removal and replacement for nursing home IV access with frequent admissions and limited peripheral IV access. PROCEDURES: 1) Placement of new left internal jugular vein central venous Port-A-Cath with C-arm fluoroscopy with ultrasound guidance interpretation management. Venous cannulation left internal jugular vein. 2) Removal of old malfunctioning, dysfunctional, coiled right chest Port-A-Cath. SURGEON: Dr. Bethel Devries. ANESTHESIA: MAC. 1% lidocaine local. ESTIMATED BLOOD LOSS: Minimal. INDICATIONS: As noted above. Risks and benefits explained in detail and not limited to and consent obtained. DESCRIPTION OF PROCEDURE AND FINDINGS: The patient is taken to the operating room. MAC anesthesia introduced. Neck and chest prepped and draped in usual sterile fashion. There was question whether she had some manipulation of the port on her chest subclavian down the jugular would keep the catheter in deeper and lessen the chance of catheter migration. Therefore in Trendelenburg position after prepping and draping in usual sterile fashion after official time out and no disagreement with planned procedure. Ultrasound guided transduction. Compressible right internal jugular vein was noted. 1% Lidocaine local was infiltrated. 18 gauge cannulation needle inserted on first pass. Good dark nonpulsatile venous return. Guide wire however would only pass to about 5 to 10 cm passed this. It was felt she had some scarring from having previous ports. The catheter was not passing smoothly. It was felt safest to go ahead to the opposite side of chest. Needle was removed. Attention was then turned to the opposite side. Again to keep the port up higher on the chest and to minimize patient being able to manipulate the port or migration of catheter, it was elected to go to jugular approach. Anesthetized with 1% lidocaine local. Ultrasound guided transduction easily compressible left internal jugular vein. 18 gauge cannulation needle inserted on first pass. Good dark, nonpulsatile venous return. Guide wire passed without difficulty and confirmed down the superior vena cava by C-arm fluoroscopy this was followed by anesthetizing the tunnel track and port pocket and transverse incision made. Inferior port pocket created with aid of cautery. Port secured to the chest wall with Prolene suture x2. Catheter tunneled down from cannulation stab wound down to port pocket area. The dilator and break away sheath easily passed over the guide wire. Catheter fed down the breakaway sheath. The tip was in the distal superior vena cava. It was pulled back until the tip was in the distal superior vena cava. Catheter is cut to appropriate length. It was aspirating with ease and flushed with injectable saline with ease. Snapped on the port to the hub. Good hemostasis noted. Port had been secured with Prolene suture x2. Subcu closed with 3-0 Vicryl, skin closed with 4-0 Vicryl. Cannulation stab wound closed with 4-0 Vicryl. Steri-Strips and sterile dressing applied at the end of the procedure. Attention is then turned to the removal of the old port. The port pocket was anesthetized with 1% lidocaine local. Transverse incision made. Dissection carried down to the port. The catheter had been coiled in the pocket and seemed to be a manipulated port. Prolene sutures were removed and passed off. Port and catheter were removed intact and passed off. There was a little bit of fluid in there whether or not it may have been infiltrated or something in the past. Excised the fibrous pocket. The wound is irrigated. Subcu closed with 3-0 Vicryl, skin closed with 4-0 Vicryl. Steri-Strips and sterile dressing applied. The patient tolerated the procedure well. There were no immediate complications. There was no family out in the waiting area to discuss the findings with.
[2019-01-23] MEDS: SYNTHROID 100 MCG PO SCH (10:23)
[2019-01-23] MEDS: MAG-OX 400 PO SCH ×2 (10:23→20:52)
[2019-01-23] MEDS: Flonase NASAL NS SCH (10:23)
[2019-01-23] MEDS: Neurontin 400 MG PO SCH ×4 (10:23→20:53)
[2019-01-23] MEDS: Protonix 40MG Tablet PO SCH (10:23)
[2019-01-23] MEDS: ZOLOFT 50 MG TABLET PO SCH ×2 (10:24→20:52)
[2019-01-23] MEDS: Zithromax 250 MG TABLET PO SCH (10:24)
[2019-01-23] MEDS: PLAVIX 75 MG Tablet PO SCH (10:24)
[2019-01-23] MEDS: Oxycontin 10 MG ER PO SCH ×2 (10:24→22:08)
[2019-01-23] MEDS: lamICTAL 100MG TABLET PO SCH ×2 (10:24→20:52)
[2019-01-23] MEDS: Acidophilus TABLET PO SCH (10:24)
[2019-01-23] MEDS: ENOXAPARIN SODIUM SQ SCH (10:25)
[2019-01-23] MEDS: CLARITIN 10 MG PO SCH ×2 (10:25→20:53)
[2019-01-23] MEDS: NON-FORMULARY ITEM PO SCH (10:25)
[2019-01-23] MEDS: LIORESAL 10 MG PO SCH ×3 (10:25→20:53)
[2019-01-23] MEDS: ZOCOR 20MG PO SCH (20:52)
[2019-01-23] MEDS: Klor Con 10 MEQ PO SCH (20:53)
[2019-01-23] MEDS: Zofran 4 MG/2 ML VIAL IV PRN (21:10)
[2019-01-24] MEDS: OXYCODONE-ACETAMINOPHEN 10-325 PO PRN (04:02)
[2019-01-24] MEDS: Zofran 4 MG/2 ML VIAL IV PRN (04:18)
[2019-01-24] MEDS: PATIENT OWN MEDICATION IH SCH (07:00)
[2019-01-24 07:40] VITALS: BP 90/53
[2019-01-24] MEDS: Carafate 1 GM PO SCH (07:53)
[2019-01-24] MEDS: PROVENTIL COMMON CANISTER IH SCH ×2 (08:34→11:43)
[2019-01-24] MEDS: ENOXAPARIN SODIUM SQ SCH (09:23)
[2019-01-24] MEDS: Acidophilus TABLET PO SCH (09:23)
[2019-01-24] MEDS: Oxycontin 10 MG ER PO SCH (09:23)
[2019-01-24] MEDS: SYNTHROID 100 MCG PO SCH (09:23)
[2019-01-24] MEDS: LIORESAL 10 MG PO SCH (09:23)
[2019-01-24] MEDS: PLAVIX 75 MG Tablet PO SCH (09:23)
[2019-01-24] MEDS: CLARITIN 10 MG PO SCH (09:24)
[2019-01-24] MEDS: Protonix 40MG Tablet PO SCH (09:24)
[2019-01-24] MEDS: lamICTAL 100MG TABLET PO SCH (09:24)
[2019-01-24] MEDS: ZOLOFT 50 MG TABLET PO SCH (09:24)
[2019-01-24] MEDS: MAG-OX 400 PO SCH (09:24)
[2019-01-24] MEDS: Neurontin 400 MG PO SCH (09:24)
[2019-01-24] MEDS: Flonase NASAL NS SCH (09:24)
--- NOTE | 2019-01-24 09:24 | PCM.DS ---
Discharge Summary Date of Admission: 01/21/19 19:52 Admitting Physician: ERICA BROCK Consults: Consults on Case 01/22/19 10:15 Consult Surgery ROUTINE Primary Care Provider: ERICA BROCK Allergies Allergies aspirin Allergy (Mild, Verified 01/16/19 19:30) Nausea and Vomiting codeine [Codeine] Allergy (Mild, Verified 01/16/19 19:30) Itching fluoxetine HCl [From Prozac] Allergy (Mild, Verified 01/16/19 19:30) confusion , "jumped out of a moving truck" Penicillins Allergy (Mild, Verified 01/16/19 19:30) Nausea and Vomiting promethazine HCl [From Phenergan] Allergy (Mild, Verified 01/16/19 19:30) tremors clindamycin Adverse Reaction (Verified 01/16/19 19:30) doxycycline hyclate [From Vibra-Tabs] Adverse Reaction (Verified 01/16/19 19:30) sulfamethoxazole [From Bactrim] Adverse Reaction (Verified 01/16/19 19:30) trimethoprim [From Bactrim] Adverse Reaction (Verified 01/16/19 19:30) steroid from breathing treatment Allergy (Mild, Uncoded 01/16/19 19:30) Blisters Hospital Summary - Hospital Course Hospital Course: is a 43 year old female pt of mine from [facility] with PMHx pseudoseizure, asthma, DM, diabetic neuropathy, COPD on O2, anemia, depression, goiter, migraine, and chronic pain who was admitted from home with diarrhea. She was found at home to have E. coli so was admitted for IV zitrhomax and fluids. She was a very hard stick and her port was curled up within her breast so she had another port placed by Dr. Cui while here. She has had some abd pain which has gradually lessened while here. She is tolerating regular diet. Finsihed 3d course of zithromax so won't go home on ay antibiotics. Diarrhea has lessened. Has PORTER today but will just treat with her regular pain meds, toradol interacts with the lovenox she's been on . Has had some low BP, she states it always runs low. Will d/c to home today. F/u with me in 1 week. - Vitals & Intake/Output Vital Signs: Vital Signs Temperature 98.2 F 01/24/19 07:33 Pulse Rate 76 01/24/19 08:34 Respiratory Rate 16 01/24/19 08:34 Blood Pressure 90/53 01/24/19 07:33 O2 Sat by Pulse Oximetry 99 01/24/19 08:34 Oxygen-Last Documented O2 Percentage 4 Liters = 36% Intake & Output: Intake & Output 01/21/19 01/22/19 01/23/19 01/24/19 11:59 11:59 11:59 11:59 Intake Total 900 2396 4021 Output Total 600 1800 1200 Balance 544 102 9942 Weight 86.4 kg 86.4 kg - Lab Result Diagrams: 01/22/19 05:10 01/22/19 05:10 Lab Results-Last 24 Hrs: Accuchecks Date 01/24/19 Date 01/23/19 Date 01/23/19 Date 01/23/19 Time 07:30 Time 22:00 Time 16:30 Time 11:29 Accucheck Value: 101 Accucheck Value: 125 Accucheck Value: 163 Accucheck Value: 162 Micro Results-Entire Visit: Accuchecks Date 01/24/19 Date 01/23/19 Date 01/23/19 Date 01/23/19 Time 07:30 Time 22:00 Time 16:30 Time 11:29 Accucheck Value: 101 Accucheck Value: 125 Accucheck Value: 163 Accucheck Value: 162 - Radiology Exams Ordered Rad Exams-Entire Visit: Radiology Procedures Category Date Time Status CHEST 1 VIEW (PORTABLE) Routine Exams 01/22/19 09:32 Completed FLUOROSCOPY FOR VENOUS ACCESS Routine Exams 01/22/19 08:37 Completed - Procedures and Test Procedures and Tests throughout Hospitalization: Therapy Orders & Screens 01/21/19 22:11 RT Screen per Nursing Assess ONCE Comment: Protocol Order Physician Instructions: Greater than 3 points order RT Admission Screen Reason For Exam: Triggered on Admission Diagnosis: e coli, diarrhea Diagnosis: e coli, diarrhea Pneumonia: No Home O2: Yes Asthma: Yes CHF: Yes Home CPAP/BIPAP: No Home Nebs/MDI: Yes Total Points: 17 ST Screen per Nursing Assess Comment: Protocol Order Physician Instructions: Greater than [address] Admission Screening Reason For Exam: Triggered on Admission Diagnosis: e coli, diarrhea CVA/Dyshpagia/Aphasia: No Cognitive Deficits: No Dehydration/Nutrition Deficit: Yes Reflux: Yes Oral-Motor Difficulties: No Pneumonia: No Residential Resident: No Total Points: 8 01/21/19 23:13 Oxygen Nasal Cannula 4 lpm Comment: Diagnosis: e coli, diarrhea 01/21/19 23:22 Respiratory Therapy Assessment DAILY Comment: Diagnosis: e coli, diarrhea 01/21/19 23:23 Peak Expiratory Flow Rate ONCE Comment: Reason For Exam: Diagnosis: e coli, diarrhea 01/23/19 07:00 Respiratory MDI BID Comment: FLOVENT [employer]-PT'S OWN MED Diagnosis: e coli, diarrhea Discharge Exam General Appearance: no apparent distress, alert Neurologic Exam: oriented x 3, cooperative Eye Exam: eyes nml inspection Ears, Nose, Throat Exam: moist mucous membranes Neck Exam: normal inspection Respiratory Exam: lungs clear, diminished breath sounds, No crackles/rales, No rhonchi, No wheezing Cardiovascular Exam: regular rate/rhythm, normal heart sounds, No murmur Gastrointestinal/Abdomen Exam: soft, tenderness (mild diffuse), No normal bowel sounds (hyperactive), No distention, No mass, No guarding, No rebound Back Exam: normal inspection, No rash Extremity Exam: normal inspection, No pedal edema, No swelling Skin Exam: normal color, warm, dry, No rash Final Diagnosis/Problem List - Final Discharge Diagnosis/Problem (1) Diarrhea Current Visit: Yes Status: Acute Assessment & Plan: D/c to home, finished course of zithromax for [id number] toxin producing E. coli. Code(s): R19.7 - DIARRHEA, UNSPECIFIED (2) Poor intravenous access Current Visit: Yes Status: Resolved Code(s): Z78.9 - OTHER SPECIFIED HEALTH STATUS (3) COPD (chronic obstructive pulmonary disease) Current Visit: No Status: Chronic (4) Diabetes type 2, controlled Current Visit: No Status: Chronic Code(s): E11.9 - TYPE 2 DIABETES MELLITUS WITHOUT COMPLICATIONS (5) Hypothyroidism Current Visit: No Status: Chronic Code(s): E03.9 - HYPOTHYROIDISM, UNSPECIFIED (6) Polypharmacy Current Visit: No Status: Chronic Code(s): Z79.899 - OTHER HALF-WAY ( CURRENT) DRUG THERAPY - Discharge Disposition: Home, Self-Care Condition: Good Prescriptions: New Diltiazem HCl [Diltiazem 24Hr ER] 120 mg PO DAILY #30 cap.sa.24h Gabapentin 800 mg PO QID #120 tablet Continue Simvastatin [Zocor] 20 mg PO HS Levothyroxine Sodium 100 Mcg [Synthroid 100 Mcg] 100 mcg PO QAM Clopidogrel Bisulfate 75 mg [PLAVIX 75 MG Tablet] 75 mg PO DAILY Lamotrigine 100 mg [lamICTAL 100MG TABLET] 200 mg PO BID Bumetanide 1 mg [Bumex 1 mg] 1 mg PO DAILY #30 tablet Diazepam 5 mg [Valium 5 MG] 5 mg PO TIDPRN Omeprazole 20 MG [Prilosec 20 mg] 20 mg PO DAILY Albuterol Sulfate [Ventolin Hfa] 8 gm IH Q4HPRN PRN PRN Reason: Shortness Of Breath/Wheezing Loratadine 10 mg [Claritin 10 mg] 10 mg PO BID Potassium Chloride [K-Dur] 20 meq PO HS Oxycodone / APAP 10/325 mg [Oxycodone-Acetaminophen 10-325] 1 tab PO Q4 -6HPRN PRN PRN Reason: Pain Magnesium Oxide 400 mg PO BID Sertraline HCl 50 mg [Zoloft 50 mg Tablet] 100 mg PO BID Fluticasone Propionate [Flonase NASAL] 0 gm NS DAILY 30 Days #1 bottle Oxycodone HCl [Oxycontin] 10 mg PO BID Baclofen 10 mg [Lioresal 10 mg] 10 mg PO TID #30 tablet Folic Acid 1 mg PO BID Fluticasone Propionate [Flovent 110 Mcg MDI] 110 mcg IH BID Propranolol HCl [Propranolol HCl ER] 80 mg PO DAILY Ergocalciferol (Vitamin D2) [Vitamin D2] 50,000 units PO WEEKLY Cyanocobalamin/Cobamamide [B-12 5,000 Mcg Sublingual Tab] 5,000 mcg SL QID Lactobacillus Acidophilus [Probiotic Acidophilus] 1 each PO DAILY Sucralfate 1 gm [Carafate 1 GM] 1 g PO ACHS #12 tablet Discontinued Diltiazem HCl [Cartia Xt] 180 mg PO QPM Gabapentin 1,600 mg PO QID Follow up with: ERICA BROCK [Primary Care Provider] - 02/05/19 10:45 am
[2019-01-24] MEDS: NON-FORMULARY ITEM PO SCH (09:25)
[2019-01-24 11:45] VITALS: PULSE 71; O2SAT 97
== END 2019-01-24 11:15 | disposition home or self-care (01) ==
LOC: MED SURG 19:52
PROVIDERS: ADMIT Family Medicine; ATTEND Family Medicine
DX: A04.4 Other intestinal Escherichia coli infections (principal); J44.9 Chronic obstructive pulmonary disease, unspecified; T82.318A Breakdown (mechanical) of other vascular grafts, initial encounter; E11.9 Type 2 diabetes mellitus without complications; Z99.81 Dependence on supplemental oxygen; R42 Dizziness and giddiness; I10 Essential (primary) hypertension; G89.29 Other chronic pain; R51 Headache; E03.9 Hypothyroidism, unspecified; Z79.899 Other long term (current) drug therapy; Z79.01 Long term (current) use of anticoagulants; F41.8 Other specified anxiety disorders
CPT/HCPCS: 36415; 36558; 36590; 71045; 76937; 77001; 80053; 81001; 82962; 83036; 85025; 93268; 94150; 94640; 94762; C1788; G0378; J0171; J1642; J1650; J2370; J2405; J2704; A9270-GY

== ENCOUNTER 2019-07-11 13:53 | Observation (INO) | payer OTHER ==
[2019-07-11] MEDS ORDERED: VENTOLIN COMMON CANISTER IH PRN (14:51)
[2019-07-11] MEDS ORDERED: Sodium Chloride 0.9% 1000 ML 1,000 ML IV SCH (15:00)
[2019-07-11] MEDS ORDERED: Zofran 4 MG/2 ML VIAL IV PRN (15:07)
--- NOTE | 2019-07-11 15:27 | XRAY ---
Indication: Right abdomen/groin pain. Comparison: None KUB nonacute and nonobstructed with cholecystectomy clips. Solid organs and osseous structures unremarkable.
[2019-07-11 15:30] LABS: Absolute Neutrophil Ct (ANC) 3.52 (1.4-6.9); BASOPHIL % 0.2 % (0.0-0.4); Basophil (Absolute #) 0.01 (0-0.4); Eosinophil % 6.6 % (0.00-5.0); Eosinophil (Absolute #) 0.41 (0-0.5); Hematocrit 38.3 % (35-47); Hemoglobin 12.6 gm/dl (12.0-16.0); Lymphocytes % 27.5 % (24.0-44.0); Mean Cell Volume 89.3 fl (78-100); Mean Corpuscular Hemoglobin 29.4 pg (26-32); Mean Corpuscular Hgb Concent. 32.9 g/dl (32-36); Monocyte (Absolute #) 0.54 (0.0-1.3); Monocytes % 8.7 % (0.0-12.0); Platelet Count 180 K/mm3 (150-450); Red Blood Count 4.29 M/mm3 (4.1-5.4); Red Cell Distribution Width 13.2 % (11.5-14.0); White Blood Count 6.2 K/mm3 (4.0-10.5)
[2019-07-11 15:49] LABS: ALBUMIN 4.4 g/dL (3.5-5.0); ALKALINE PHOSPHATASE 145 U/L (38-126); AMYLASE 43 U/L (30-110); ANION GAP 12.4 MEQ/L (5-15); BLOOD UREA NITROGEN 12 mg/dL (7-17); CHLORIDE 106 mmol/L (98-107); Calcium 9.3 mg/dL (8.4-10.2); Carbon Dioxide 28 mmol/L (22-30); Creatinine 1 0.74 mg/dL (0.52-1.04); Glucose 95 mg/dL (74-106); LIPASE 45 U/L (23-300); Potassium 3.8 mmol/L (3.5-5.1); SGOT/AST 25 U/L (14-36); SGPT/ALT 14 U/L (0-35); SODIUM 142 mmol/L (137-145)
[2019-07-11] MEDS ORDERED: Dextrose 5% -0.45 NaCl 1000 ML 1,000 ML IV SCH (16:00)
[2019-07-11] MEDS ORDERED: Ativan 2 MG/1 ML VIAL IV PRN (16:09)
[2019-07-11] MEDS ORDERED: MEDICATION INTERVENTION MC SCH (16:15)
[2019-07-11] MEDS: MORPHINE SULFATE 4 MG INJ IV PRN ×2 (16:38→23:04)
[2019-07-11 17:06] LABS: Amourphous Crystal FEW /HPF (NEGATIVE); Appearance CLOUDY (CLEAR); Bacteria RARE /HPF (NEGATIVE); Bilirubin NEGATIVE (NEGATIVE); Blood NEGATIVE Ery/ul (0-5); Epithelial Cells FEW /HPF (FEW); Glucose NEGATIVE (NEGATIVE); Ketones NEGATIVE (NEGATIVE); Leukocyte Esterase NEGATIVE (NEGATIVE); Mucus MANY /HPF (NEGATIVE); Nitrite NEGATIVE (NEGATIVE); Protein,Urine Dip NEGATIVE (Negative); Specific Gravity 1.027 (1.005-1.025); Urobilinogen NEGATIVE mg/dL (0-1); WBC 0-2 /HPF (0-5)
[2019-07-11] MEDS ORDERED: Lactated Ringers 1,000 ML IV ONE ×3 (19:13→21:49)
[2019-07-11] MEDS ORDERED: Sensorcaine 0.25% 10 ML ONE (19:19)
[2019-07-11] MEDS ORDERED: SUBLIMAZE 100 MCG/2 ML ONE ×2 (19:43→21:25)
[2019-07-11] MEDS ORDERED: Zemuron 100 MG/10 ML ONE (19:43)
[2019-07-11] MEDS ORDERED: DIPRIVAN 200 MG/20 ML IV ONE (19:43)
[2019-07-11] MEDS ORDERED: Quelicin Fliptop 200 MG/10 ML ONE (19:43)
[2019-07-11] MEDS ORDERED: CLINDAMYCIN-D5W 900 MG/50 ML*** 0 MG/0 ML BAG IV ONE (20:10)
[2019-07-11] MEDS ORDERED: MEFOXIN 2 GM PREMIX** 2 GM/50 ML ML IV ONE (20:30)
[2019-07-11] MEDS ORDERED: Ephedrine Sulfate 50 MG/ML ONE (20:42)
[2019-07-11] MEDS ORDERED: Decadron 4 MG INJ ONE ×2 (20:42→20:43)
[2019-07-11] MEDS ORDERED: BRIDION 200MG/2ML IV ONE (20:42)
[2019-07-11] MEDS ORDERED: Zofran 4 MG/2 ML VIAL ONE (20:42)
[2019-07-11] MEDS ORDERED: ATROPINE SULFATE 1MG ONE (20:45)
[2019-07-11] MEDS ORDERED: DILAUDID 2 MG INJECTION ONE (21:25)
[2019-07-11] MEDS ORDERED: Levofloxacin 500MG/100ML D5W 500 MG/100 ML BAG IV SCH (22:00)
[2019-07-11] MEDS ORDERED: Flovent 110 Mcg MDI IH SCH (22:00)
--- NOTE | 2019-07-11 22:03 | XRAY ---
Indication: Right lower quadrant pain. Nausea. Multiple contiguous axial images obtained through the abdomen and pelvis using 80 cc Isovue 370 contrast. Enteric contrast also used. Comparison: July 06, 2018. Lung bases demonstrates minimal bibasilar fibrosis/scarring. No infiltrate or effusion. Heart is not enlarged. Contrasted stomach and bowel loops appear nonobstructed. Appendix is reidentified now appearing prominent up to 10 mm with appendicolith and mild periappendiceal stranding favoring acute appendicitis. No free fluid/air. Again previous cholecystectomy and hysterectomy. Remaining liver, pancreas, spleen, adrenal glands, kidneys, ureters, bladder, and aorta appear normal in CT appearance and attenuation. No pathologic retroperitoneal lymphadenopathy. Osseous structures intact. Impression: New CT findings as detailed favoring acute appendicitis. No complications. Comment: Preliminary interpretation was made by [facility]. No critical discrepancy.
[2019-07-11] MEDS ORDERED: Invanz 1 GM*** 1 G in Sodium Chloride 100ML MINI-BAG PLUS 100 ML IV SCH (22:15)
[2019-07-12] MEDS: FLAGYL 500 MG IVPB 500 MG/100 ML BAG IV SCH ×2 (01:08→06:13)
[2019-07-12 03:05] LABS: Appearance CLEAR (CLEAR); Bilirubin NEGATIVE (NEGATIVE); Blood NEGATIVE Ery/ul (0-5); Glucose NEGATIVE (NEGATIVE); Ketones NEGATIVE (NEGATIVE); Leukocyte Esterase NEGATIVE (NEGATIVE); Nitrite NEGATIVE (NEGATIVE); Protein,Urine Dip NEGATIVE (Negative); Specific Gravity 1.044 (1.005-1.025); Urobilinogen NEGATIVE mg/dL (0-1)
[2019-07-12] MEDS: MORPHINE SULFATE 4 MG INJ IV PRN (03:09)
[2019-07-12 03:41] LABS: Bacteria NONE SEEN /HPF (NEGATIVE)
[2019-07-12] MEDS ORDERED: NORCO 5/325 MG ONE (06:11)
[2019-07-12] MEDS: NORCO 5/325 MG PO PRN ×2 (06:27→10:35)
[2019-07-12 06:37] LABS: Hematocrit 37.1 % (35-47); Hemoglobin 11.7 gm/dl (12.0-16.0); Mean Cell Volume 91.6 fl (78-100); Mean Corpuscular Hemoglobin 28.9 pg (26-32); Mean Corpuscular Hgb Concent. 31.5 g/dl (32-36); Platelet Count 175 K/mm3 (150-450); Red Blood Count 4.05 M/mm3 (4.1-5.4); Red Cell Distribution Width 13.2 % (11.5-14.0); White Blood Count 7.8 K/mm3 (4.0-10.5)
[2019-07-12 06:50] LABS: ANION GAP 16.6 MEQ/L (5-15); BLOOD UREA NITROGEN 7 mg/dL (7-17); CHLORIDE 102 mmol/L (98-107); Calcium 8.8 mg/dL (8.4-10.2); Carbon Dioxide 26 mmol/L (22-30); Creatinine 1 0.58 mg/dL (0.52-1.04); Glucose 203 mg/dL (74-106); Potassium 4.5 mmol/L (3.5-5.1); SODIUM 140 mmol/L (137-145)
--- NOTE | 2019-07-12 09:49 | PCM.DS ---
Discharge Summary Date of Admission: 07/11/19 14:13 Admitting Physician: ERICA ALFARO Consults: Consults on Case 07/11/19 18:48 Consult Surgery ROUTINE Primary Care Provider: ERICA ALFARO Allergies Allergies aspirin Allergy (Mild, Verified 01/16/19 19:30) Nausea and Vomiting codeine [Codeine] Allergy (Mild, Verified 01/16/19 19:30) Itching fluoxetine HCl [From Prozac] Allergy (Mild, Verified 01/16/19 19:30) confusion , "jumped out of a moving truck" Penicillins Allergy (Mild, Verified 01/16/19 19:30) Nausea and Vomiting promethazine HCl [From Phenergan] Allergy (Mild, Verified 01/16/19 19:30) tremors clindamycin Adverse Reaction (Verified 01/16/19 19:30) doxycycline hyclate [From Vibra-Tabs] Adverse Reaction (Verified 01/16/19 19:30) sulfamethoxazole [From Bactrim] Adverse Reaction (Verified 01/16/19 19:30) trimethoprim [From Bactrim] Adverse Reaction (Verified 01/16/19 19:30) steroid from breathing treatment Allergy (Mild, Uncoded 01/16/19 19:30) Blisters Hospital Summary - Hospital Course Hospital Course: patient was a direct admit from office yesteday by Dr Alfaro for abd pain and suspected appendicitis, ct showed acute appendicitis and had laparoscopic appendectomy by Dr Renner. she is tolerating po intake and doing well post- operative - Vitals & Intake/Output Vital Signs: Vital Signs Temperature 98.2 F 07/12/19 07:26 Pulse Rate 69 07/12/19 08:20 Respiratory Rate 18 07/12/19 08:20 Blood Pressure 87/54 07/12/19 07:26 O2 Sat by Pulse Oximetry 99 07/12/19 08:20 Intake & Output: Intake & Output 07/09/19 07/10/19 07/11/19 07/12/19 11:59 11:59 11:59 11:59 Intake Total 1060 Output Total 600 Balance 460 Weight 74.1 kg - Lab Result Diagrams: 07/12/19 06:10 07/12/19 06:10 Lab Results-Last 24 Hrs: Lab Results-Last 24 Hours 07/11/19 07/11/19 07/11/19 Range/Units 15:10 15:10 15:10 WBC 6.2 (4.0-10.5) K/mm3 RBC 4.29 (4.1-5.4) M/mm3 Hgb 12.6 (12.0-16.0) gm/dl Hct 38.3 (35-47) % MCV 89.3 (78-100) fl MCH 29.4 (26-32) pg MCHC 32.9 (32-36) g/dl RDW 13.2 (11.5-14.0) % Plt Count 180 (150-450) K/mm3 MPV 11.0 (7.5-11.0) fl Gran % 57.0 (36.0-66.0) % Eos # (Auto) 0.41 (0-0.5) Absolute Lymphs (auto) 1.70 (1.0-4.6) Absolute Monos (auto) 0.54 (0.0-1.3) Lymphocytes % 27.5 (24.0-44.0) % Monocytes % 8.7 (0.0-12.0) % Eosinophils % 6.6 H (0.00-5.0) % Basophils % 0.2 (0.0-0.4) % Absolute Granulocytes 3.52 (1.4-6.9) Basophils # 0.01 (0-0.4) Sodium 142 (137-145) mmol/L Potassium 3.8 (3.5-5.1) mmol/L Chloride 106 (98-107) mmol/L Carbon Dioxide 28 (22-30) mmol/L Anion Gap 12.4 (5-15) MEQ/L BUN 12 (7-17) mg/dL Creatinine 0.74 (0.52-1.04) mg/dL Estimated GFR > 60.0 ML/MIN Glucose 95 (74-106) mg/dL Calcium 9.3 (8.4-10.2) mg/dL Total Bilirubin 0.50 (0.2-1.3) mg/dL AST 25 (14-36) U/L ALT 14 (0-35) U/L Alkaline Phosphatase 145 H (38-126) U/L Troponin I < 0.012 (0.000-0.034) ng/mL Serum Total Protein 8.0 (6.3-8.2) g/dL Albumin 4.4 (3.5-5.0) g/dL Amylase 43 (30-110) U/L Lipase 45 (23-300) U/L Urine Color (YELLOW) Urine Appearance (CLEAR) Urine pH (5-6) Ur Specific [place] (1.005-1.025) Urine Protein (Negative) Urine Ketones (NEGATIVE) Urine Blood (0-5) Laurent/ul Urine Nitrite (NEGATIVE) Urine Bilirubin (NEGATIVE) Urine Urobilinogen (0-1) mg/dL Ur Leukocyte Esterase (NEGATIVE) Urine WBC (Auto) (0-5) /HPF Urine RBC (Auto) (0-2) /HPF U Epithel Cells (Auto) (FEW) /HPF Urine Bacteria (Auto) (NEGATIVE) /HPF Calcium Oxalate Crystal (NEGATIVE) /HPF Amorphous Crystals (NEGATIVE) /HPF Urine Mucus (Auto) (NEGATIVE) /HPF Urine Culture Reflexed (NO) Urine Glucose (NEGATIVE) mg/dL 07/11/19 07/11/19 07/12/19 Range/Units 16:50 20:50 06:10 WBC 7.8 (4.0-10.5) K/mm3 RBC 4.05 L (4.1-5.4) M/mm3 Hgb 11.7 L (12.0-16.0) gm/dl Hct 37.1 (35-47) % MCV 91.6 (78-100) fl MCH 28.9 (26-32) pg MCHC 31.5 L (32-36) g/dl RDW 13.2 (11.5-14.0) % Plt Count 175 (150-450) K/mm3 MPV 11.0 (7.5-11.0) fl Gran % (36.0-66.0) % Eos # (Auto) (0-0.5) Absolute Lymphs (auto) (1.0-4.6) Absolute Monos (auto) (0.0-1.3) Lymphocytes % (24.0-44.0) % Monocytes % (0.0-12.0) % Eosinophils % (0.00-5.0) % Basophils % (0.0-0.4) % Absolute Granulocytes (1.4-6.9) Basophils # (0-0.4) Sodium (137-145) mmol/L Potassium (3.5-5.1) mmol/L Chloride (98-107) mmol/L Carbon Dioxide (22-30) mmol/L Anion Gap (5-15) MEQ/L BUN (7-17) mg/dL Creatinine (0.52-1.04) mg/dL Estimated GFR ML/MIN Glucose (74-106) mg/dL Calcium (8.4-10.2) mg/dL Total Bilirubin (0.2-1.3) mg/dL AST (14-36) U/L ALT (0-35) U/L Alkaline Phosphatase (38-126) U/L Troponin I (0.000-0.034) ng/mL Serum Total Protein (6.3-8.2) g/dL Albumin (3.5-5.0) g/dL Amylase (30-110) U/L Lipase (23-300) U/L Urine Color DENISE STRAW (YELLOW) Urine Appearance CLOUDY CLEAR (CLEAR) Urine pH 6.0 6.0 (5-6) Ur Specific [place] 1.027 1.044 (1.005-1.025) Urine Protein NEGATIVE NEGATIVE (Negative) Urine Ketones NEGATIVE NEGATIVE (NEGATIVE) Urine Blood NEGATIVE NEGATIVE (0-5) Laurent/ul Urine Nitrite NEGATIVE NEGATIVE (NEGATIVE) Urine Bilirubin NEGATIVE NEGATIVE (NEGATIVE) Urine Urobilinogen NEGATIVE NEGATIVE (0-1) mg/dL Ur Leukocyte Esterase NEGATIVE NEGATIVE (NEGATIVE) Urine WBC (Auto) 0-2 NONE (0-5) /HPF Urine RBC (Auto) NONE NONE (0-2) /HPF U Epithel Cells (Auto) FEW NONE (FEW) /HPF Urine Bacteria (Auto) RARE NONE SEEN (NEGATIVE) /HPF Calcium Oxalate Crystal 11-25 (NEGATIVE) /HPF Amorphous Crystals FEW (NEGATIVE) /HPF Urine Mucus (Auto) MANY (NEGATIVE) /HPF Urine Culture Reflexed ORDERED SEPARATELY (NO) Urine Glucose NEGATIVE NEGATIVE (NEGATIVE) mg/dL 07/12/19 Range/Units 06:10 WBC (4.0-10.5) K/mm3 RBC (4.1-5.4) M/mm3 Hgb (12.0-16.0) gm/dl Hct (35-47) % MCV (78-100) fl MCH (26-32) pg MCHC (32-36) g/dl RDW (11.5-14.0) % Plt Count (150-450) K/mm3 MPV (7.5-11.0) fl Gran % (36.0-66.0) % Eos # (Auto) (0-0.5) Absolute Lymphs (auto) (1.0-4.6) Absolute Monos (auto) (0.0-1.3) Lymphocytes % (24.0-44.0) % Monocytes % (0.0-12.0) % Eosinophils % (0.00-5.0) % Basophils % (0.0-0.4) % Absolute Granulocytes (1.4-6.9) Basophils # (0-0.4) Sodium 140 (137-145) mmol/L Potassium 4.5 (3.5-5.1) mmol/L Chloride 102 (98-107) mmol/L Carbon Dioxide 26 (22-30) mmol/L Anion Gap 16.6 H (5-15) MEQ/L BUN 7 (7-17) mg/dL Creatinine 0.58 (0.52-1.04) mg/dL Estimated GFR > 60.0 ML/MIN Glucose 203 H (74-106) mg/dL Calcium 8.8 (8.4-10.2) mg/dL Total Bilirubin (0.2-1.3) mg/dL AST (14-36) U/L ALT (0-35) U/L Alkaline Phosphatase (38-126) U/L Troponin I (0.000-0.034) ng/mL Serum Total Protein (6.3-8.2) g/dL Albumin (3.5-5.0) g/dL Amylase (30-110) U/L Lipase (23-300) U/L Urine Color (YELLOW) Urine Appearance (CLEAR) Urine pH (5-6) Ur Specific [place] (1.005-1.025) Urine Protein (Negative) Urine Ketones (NEGATIVE) Urine Blood (0-5) Laurent/ul Urine Nitrite (NEGATIVE) Urine Bilirubin (NEGATIVE) Urine Urobilinogen (0-1) mg/dL Ur Leukocyte Esterase (NEGATIVE) Urine WBC (Auto) (0-5) /HPF Urine RBC (Auto) (0-2) /HPF U Epithel Cells (Auto) (FEW) /HPF Urine Bacteria (Auto) (NEGATIVE) /HPF Calcium Oxalate Crystal (NEGATIVE) /HPF Amorphous Crystals (NEGATIVE) /HPF Urine Mucus (Auto) (NEGATIVE) /HPF Urine Culture Reflexed (NO) Urine Glucose (NEGATIVE) mg/dL - Radiology Exams Ordered Rad Exams-Entire Visit: Radiology Procedures Category Date Time Status ABDOMEN AND PELVIS W CONTRAST [CT] Stat Exams 07/11/19 14:58 Completed KUB Stat Exams 07/11/19 15:22 Completed - Procedures and Test Procedures and Tests throughout Hospitalization: Therapy Orders & Screens 07/11/19 14:50 Oxygen Nasal Cannula 4 lpm Comment: 07/11/19 14:51 Respiratory Therapy Assessment DAILY Comment: Discharge Exam General Appearance: no apparent distress, alert Eye Exam: PERRL, EOMI, eyes nml inspection Respiratory Exam: normal breath sounds, lungs clear, No respiratory distress Cardiovascular Exam: regular rate/rhythm, normal heart sounds Gastrointestinal/Abdomen Exam: soft, other (dressings clean/dry/intact), No tenderness, No mass Extremity Exam: normal inspection, normal range of motion Final Diagnosis/Problem List - Final Discharge Diagnosis/Problem (1) Acute appendicitis Current Visit: Yes Status: Acute Assessment & Plan: home when ok with surgery Code(s): K35.80 - UNSPECIFIED ACUTE APPENDICITIS (2) Chronic pain Current Visit: Yes Status: Acute Assessment & Plan: has home med supply of narcotics Code(s): G89.29 - OTHER CHRONIC PAIN (3) COPD (chronic obstructive pulmonary disease) Current Visit: No Status: Chronic (4) Chronic hypoxemic respiratory failure Current Visit: No Status: Chronic Onset Date: ~04/06/18 (5) Diabetes type 2, controlled Current Visit: No Status: Chronic Code(s): E11.9 - TYPE 2 DIABETES MELLITUS WITHOUT COMPLICATIONS - Discharge Disposition: Home, Self-Care Condition: Stable Prescriptions: Continue Simvastatin [Zocor] 20 mg PO HS Levothyroxine Sodium 100 Mcg [Synthroid 100 Mcg] 100 mcg PO QAM Clopidogrel Bisulfate 75 mg [PLAVIX 75 MG Tablet] 75 mg PO DAILY Lamotrigine 100 mg [lamICTAL 100MG TABLET] 200 mg PO BID Bumetanide 1 mg [Bumex 1 mg] 1 mg PO DAILY #30 tablet Diazepam 5 mg [Valium 5 MG] 5 mg PO TIDPRN Albuterol Sulfate [Ventolin Hfa] 2 puff IH QID Loratadine 10 mg [Claritin 10 mg] 10 mg PO BID Potassium Chloride [K-Dur] 20 meq PO HS Oxycodone / APAP 10/325 mg [Oxycodone-Acetaminophen 10-325] 1 tab PO Q4 -6HPRN PRN PRN Reason: Pain Magnesium Oxide 400 mg PO BID Sertraline HCl 50 mg [Zoloft 50 mg Tablet] 100 mg PO DAILY Oxycodone HCl [Oxycontin] 10 mg PO BID Baclofen 10 mg [Lioresal 10 mg] 10 mg PO TID #30 tablet Folic Acid 1 mg PO BID Fluticasone Propionate [Flovent 110 Mcg MDI] 1 puff IH BID Propranolol HCl [Propranolol HCl ER] 80 mg PO DAILY Ergocalciferol (Vitamin D2) [Vitamin D2] 50,000 units PO WEEKLY Cyanocobalamin/Cobamamide [B-12 5,000 Mcg Sublingual Tab] 5,000 mcg SL QID Diltiazem HCl [Diltiazem 24Hr ER] 120 mg PO DAILY #30 cap.sa.24h Gabapentin 800 mg PO QID #120 tablet Sucralfate 1 gm [Carafate 1 GM] 1 g PO ACHS #12 tablet Fluticasone Propionate [Flonase NASAL] 1 spray NS DAILY Follow up with: ERICA ALFARO [Primary Care Provider] - 1 Week
[2019-07-12] MEDS ORDERED: NON-FORMULARY ITEM (Diltiazem Hcl [Diltiazem 24hr Er] 120 MG) PO SCH (10:00)
[2019-07-12] MEDS ORDERED: Cardizem CD 120 MG PO SCH (10:00)
[2019-07-12] MEDS ORDERED: Flonase NASAL NS SCH (10:00)
[2019-07-12] MEDS ORDERED: SYNTHROID 100 MCG PO SCH (10:00)
[2019-07-12 11:52] VITALS: BP 124/66; PULSE 61; O2SAT 98
[2019-07-12] MEDS ORDERED: Levofloxacin 500MG/100ML D5W 500 MG/100 ML BAG IV SCH (22:00)
[2019-07-12] MEDS ORDERED: NORCO 5/325 MG PO PRN (22:08)
--- NOTE | 2019-07-14 07:55 | CONS ---
CONSULT DATE: 07/11/2019 REASON FOR CONSULT: Abdominal pain. HISTORY: This patient presents with 24 hours or right lower quadrant pain that has been progressively worsening. She denies any nausea, vomiting, fever, chills, chest pain or shortness of breath. She does have chronic obstructive pulmonary disease requiring 4 liters of oxygen / and she feels like she is at her baseline for her breathing. Her pain has been progressively worse. It hurts to walk around. Laying still is helpful and the pain medicine has been helpful with the pain. PAST MEDICAL HISTORY: Congestive heart failure, chronic obstructive pulmonary disease on home oxygen, stroke, pulmonary embolism, Factor V Leiden. PAST SURGICAL HISTORY: Hysterectomy. Laparoscopic hiatal hernia repair. Laparoscopic cholecystectomy. MEDICATIONS: Medications reviewed, see MAR. Including Plavix. ALLERGIES: PENICILLIN. ASPIRIN. CODEINE. SOCIAL HISTORY: Positive for tobacco. No alcohol. FAMILY HISTORY: Noncontributory. PHYSICAL EXAMINATION: GENERAL: Mild acute distress. HEENT: Sclera nonicteric. Extraocular movements intact. NECK: Supple. No JVD. CHEST: Nonlabored breathing on oxygen. ABDOMEN: Soft, nondistended, tender to palpation in the right lower quadrant with involuntary guarding and rebound tenderness. NEURO: Awake, alert, oriented. PSYCH: Appropriate mood and affect. LAB DATA AND TESTS: Creatinine 0.74, glucose 95, sodium 142, total bilirubin 0.5, alkaline phosphatase 145. CT of the abdomen and pelvis showed acute appendicitis. White blood cell 6.2, hemoglobin 12.6, PLT count 180,000. ASSESSMENT AND PLAN: Acute appendicitis. Risks and benefits of surgery including alternatives to surgery which would be antibiotic therapy and observation were discussed in depth with the patient and the patient would like to proceed with laparoscopic possible open appendectomy. She is aware of her increased risk of bleeding complications due to being on Plavix. She is also aware that she is higher risk for medical complications including heart attack, stroke and pulmonary embolism. She is also aware of the potential surgical complications such as bleeding, infection, injury to bowel or other organs and she would like to proceed with surgery. We will plan to proceed with surgery immediately at this time.
--- NOTE | 2019-07-14 08:15 | OP ---
SURGERY DATE/TIME: 07/11/20192032 PREOPERATIVE DIAGNOSIS: Acute appendicitis. POSTOPERATIVE DIAGNOSIS: Acute appendicitis. PROCEDURE: Laparoscopic appendectomy. SURGEON: Vaughn Renner M.D. ANESTHESIA: General. ESTIMATED BLOOD LOSS: 10 cc. COMPLICATIONS: None. SPECIMEN: Appendix. FINDINGS: Acute uncomplicated appendicitis. INDICATION: This patient presents with one day of right lower quadrant pain. CT scan consistent with acute nonperforated appendicitis. After discussing the risks and benefits of laparoscopic possible open appendectomy and alternatives to surgery which would be antibiotics and nonoperative management, the patient wished to proceed with surgery. She is aware that she is at increased risk for bleeding complications with her being on Plavix as well as medical complications with multiple medical comorbidities including prior stroke, pulmonary embolism, congestive heart failure, chronic obstructive pulmonary disease, on oxygen and she would like to proceed with surgery. DESCRIPTION OF PROCEDURE: The patient was brought to the operating room, placed supine on operating table, placed under general anesthesia. Left arm was tucked. The abdomen was prepped and draped in sterile fashion. Veress needle inserted left upper quadrant. Pneumoperitoneum obtained. A 5 mm optical trocar was inserted under direct visualization and the abdomen was entered. Area on entry was inspected. There did not appear to be any inadvertent injury. Additional 12 mm trocar placed left mid abdomen and a 5 mm trocar placed in the right upper quadrant both under direct visualization. The patient is placed in Trendelenburg position and rolled to the left. There were omental adhesions down to her prior hysterectomy scar in the lower midline and these were left alone. The appendix was swollen at the tip and consistent with acute appendicitis. It was not ruptured. A window was created in between the base of the appendix and the mesoappendix with the [place] LigaSure. The mesoappendix transected with the [place] LigaSure. The appendix was removed from the cecum at its junction with a 45 EndoGIA white load stapler. The staple line and mesoappendix looked excellent and they were hemostatic. The appendix was removed with a bag. The 12 mm trocar site was closed with #1 Vicryl suture with suture passer under direct visualization. The remaining trocars were removed under direct visualization. The wound injected with 0.25% Marcaine. The abdomen desufflated. Wounds closed with 4-0 Monocryl sutures. Steri-Strips and dressings were applied. The patient was recovered and taken to PACU in stable condition.
== END 2019-07-12 13:15 | disposition home or self-care (01) ==
LOC: MED SURG 14:13
PROVIDERS: ADMIT Family Medicine; ATTEND Family Medicine
DX: K35.80 Unspecified acute appendicitis (principal); G89.29 Other chronic pain; J44.9 Chronic obstructive pulmonary disease, unspecified; J96.11 Chronic respiratory failure with hypoxia; E11.9 Type 2 diabetes mellitus without complications; Z79.01 Long term (current) use of anticoagulants; Z79.899 Other long term (current) drug therapy
CPT/HCPCS: 36415; 44970; 74018; 74177; 80048; 80053; 81001; 82150; 83690; 84484; 85025; 85027; 87086; 94760; G0378; 99140; J0330; J0461; J0694; J1100; J1170; J1335; J1642; J1956; J2270; J2405; J2704; J3010; A9270-GY

== ENCOUNTER 2019-12-07 23:06 | Observation (INO) | payer OTHER ==
[2019-12-07] MEDS ORDERED: DUONEB 0.5-3 MG/3 ml Neb IH ONE ×2 (23:33→23:53)
--- NOTE | 2019-12-08 00:07 | ERPHSYRPT ---
- History of Present Illness Time Seen by Provider: 12/07/19 23:20 Patient Subjective Stated Complaint: "I've been congested over the last two weeks and it seems to be getting worse." Triage Nursing Assessment: Pt presented alert et oriented x3 answering questions appropriately. Pt reported two weeks of congestion with use of z-pack without relief. Pt reported increased congestion and slight increased dyspena. Pt uses supplemental home oxygen at 4 L/min via NC. Pt denied chest pain. Pupils 3mm brisk reaction. Oral mucosa pink/moist. Neck supple non-tender without palpable lymphadenopathy. Symmetrical chest expansion. Lungs with diffuse wheezes. Heart tones regular/clear. Radial pulses equal bilateral. Abdomen soft non-tender with bowel sounds present in all quadrants. No noted dependent edema. Pt reported chronic lower back pain that is not worsened from baseline. Physician History: Patient is a 43-year-old female with a history of COPD including episodes of bronchitis with bronchospasm who presents with a complaint of cough and congestion for 2 weeks. She has been on Cipro for this. Without benefit she denies any fever chills or sweats on her cough is nonproductive. She is a former smoker. Timing/Duration: week(s) (2) Severity of Dyspnea-Max: moderate Severity of Dyspnea-Current: moderate Possible Cause: occasional episodes Modifying Factors: Improves With: coughing Associated Symptoms: cough, wheezing Allergies/Adverse Reactions: aspirin Allergy (Mild, Verified 12/07/19 23:19) Nausea and Vomiting codeine [Codeine] Allergy (Mild, Verified 12/07/19 23:19) Itching fluoxetine HCl [From Prozac] Allergy (Mild, Verified 12/07/19 23:19) confusion , "jumped out of a moving truck" Penicillins Allergy (Mild, Verified 12/07/19 23:19) Nausea and Vomiting promethazine HCl [From Phenergan] Allergy (Mild, Verified 12/07/19 23:19) tremors clindamycin Adverse Reaction (Verified 12/07/19 23:19) doxycycline hyclate [From Vibra-Tabs] Adverse Reaction (Verified 12/07/19 23:19) sulfamethoxazole [From Bactrim] Adverse Reaction (Verified 12/07/19 23:19) trimethoprim [From Bactrim] Adverse Reaction (Verified 12/07/19 23:19) steroid from breathing treatment Allergy (Mild, Uncoded 12/07/19 23:19) Blisters Home Medications: Levothyroxine Sodium 100 Mcg [Synthroid 100 Mcg] 100 mcg PO QAM 09/27/14 [History] Simvastatin [Zocor] 20 mg PO HS 09/27/14 [History] Clopidogrel Bisulfate 75 mg [PLAVIX 75 MG Tablet] 75 mg PO DAILY 04/05/15 [History] Lamotrigine 100 mg [lamICTAL 100MG TABLET] 200 mg PO BID 09/27/15 [History] Diazepam 5 mg [Valium 5 MG] 5 mg PO TIDPRN 02/14/16 [History] Albuterol Sulfate [Ventolin Hfa] 2 puff IH QID 12/21/16 [History] Loratadine 10 mg [Claritin 10 mg] 10 mg PO BID 07/30/17 [History] Potassium Chloride [K-Dur] 20 meq PO HS 08/03/17 [History] Magnesium Oxide 400 mg PO BID 09/10/17 [History] Oxycodone / APAP 10/325 mg [Oxycodone-Acetaminophen 10-325] 1 tab PO Q4- 6HPRN PRN 09/10/17 [History] Sertraline HCl 50 mg [Zoloft 50 mg Tablet] 100 mg PO DAILY 04/05/18 [ History] Oxycodone HCl [Oxycontin] 10 mg PO BID 07/24/18 [History] Cyanocobalamin/Cobamamide [B-12 5,000 Mcg Sublingual Tab] 5,000 mcg SL QID 01/21/19 [History] Ergocalciferol (Vitamin D2) [Vitamin D2] 50,000 units PO WEEKLY 01/21/19 [History] Fluticasone Propionate [Flovent 110 Mcg MDI] 1 puff IH BID 01/21/19 [History] Folic Acid 1 mg PO BID 01/21/19 [History] Propranolol HCl [Propranolol HCl ER] 80 mg PO DAILY 01/21/19 [History] Fluticasone Propionate [Flonase NASAL] 1 spray NS DAILY 07/11/19 [History] Hx Tetanus, Diphtheria Vaccination/Date Given: Yes Hx Influenza Vaccination/Date Given: Yes Hx Pneumococcal Vaccination/Date Given: Yes Travel Risk - International Travel Have you traveled outside of the country in past 3 weeks: No - Coronavirus Screening Are you exhibiting any of the following symptoms?: No Close contact with a COVID-19 positive Pt in past 14-21 Days: No - Review of Systems Constitutional: No Fever, No Chills Eyes: No Symptoms Ears, Nose, & Throat: No Symptoms Respiratory: Cough, Wheezing, No Dyspnea Cardiac: No Chest Pain, No Edema, No Syncope Abdominal/Gastrointestinal: No Abdominal Pain, No Nausea, No Vomiting, No Diarrhea Genitourinary Symptoms: No Dysuria Musculoskeletal: No Back Pain, No Neck Pain Skin: No Rash Neurological: No Dizziness, No Focal Weakness, No Sensory Changes Psychological: No Symptoms Endocrine: No Symptoms All Other Systems: Reviewed and Negative - Past Medical History Pertinent Past Medical History: Yes Neurological History: Epilepsy, Seizures, Stroke ENT History: No Pertinent History Cardiac History: Arrhythmia, Congestive Heart Failure, Deep Vein Thrombosis, Hypertension Respiratory History: CHF, Pulmonary Embolism, Other Endocrine Medical History: Diabetes Type II, Hypothyroidism Musculoskeletal History: Other GI Medical History: GERD, Hernia, Ulcer History: No Pertinent History Psycho-Social History: Anxiety, Bipolar, Depression, Panic Disorder Female Reproductive Disorders: Endometriosis Other Medical History: Mitral valve prolapse with regurgitation, pt wears 4 L N/C at all times - Past Surgical History Past Surgical History: Yes Neuro Surgical History: No Pertinent History Cardiac: Cardiac Catheterization Respiratory: No Pertinent History Gastrointestinal: Cholecystectomy, Hernia Repair Genitourinary: No Pertinent History Musculoskeletal: Joint Replacement, Orthopedic Surgery Female Surgical History: Hysterectomy, Dilation & Curettage Other Surgical History: torn miniscus and implant-RT KNEE" partial scope replacement", oral surgery, melanoma removed for face twice, port placement twice with one removal. - Social History Smoking Status: Former smoker How long have you smoked: 10 years Exposure to second hand smoke: No Alcohol Use: None Drug Use: none Patient Lives Alone: No Significant Family History: no pertinent family hx, heart disease, diabetes, hypertension - Female History Hx Now: No - Nursing Vital Signs Nursing Vital Signs: Initial Vital Signs Temperature 98.6 F 12/07/19 23:07 Pulse Rate 60 12/07/19 23:07 Respiratory Rate 16 12/07/19 23:07 Blood Pressure 119/56 12/07/19 23:07 O2 Sat by Pulse Oximetry 97 12/07/19 23:07 - Physical Exam General Appearance: mild distress, alert Eye Exam: PERRL/EOMI Neck Exam: normal inspection, supple Respiratory Exam: respiratory distress (mild), prolonged expirations, wheezing Cardiovascular/Chest Exam: normal heart sounds, regular rate/rhythm Abdominal/Gastrointestinal Exam: soft, No tenderness, No distention, No mass Extremity Exam: non-tender, normal range of motion, normal inspection, no calf tenderness, no pedal edema Neurologic Exam: alert, oriented x 3, cooperative, box worker II-XII nml as tested, sensation nml, No motor deficits Skin Exam: normal color, warm, No dry SpO2 Interpretation: normal SpO2: 99 O2 Delivery: Nasal Cannula (4 L) - Course Nursing assessment & vital signs reviewed: Yes - Radiology Exams Chest X-ray Interpretation: Other (Chest x-ray interpreted by me shows no definite pneumonia there is some elevation of the right hemidiaphragm but no distinct infiltrates) Ordered Tests: Active Orders 24 hr Category Date Time Status CHEST 1 VIEW (PORTABLE) Stat Exams 12/08/19 00:06 Taken Respiratory Therapy Assessment DAILY RT 12/07/19 23:55 Completed Medication Summary Discontinued Medications Generic Name Dose Route Start Last Admin Trade Name Parker PRN Reason Stop Dose Admin Albuterol/Ipratropium 3 ml 12/07/19 23:33 12/07/19 23:55 Duoneb 0.5-3 Mg/3 Ml Neb IH 12/07/19 23:34 3 ml STAT ONE Administration Albuterol/Ipratropium Confirm 12/07/19 23:53 Duoneb 0.5-3 Mg/3 Ml Neb Administered 12/07/19 23:54 Dose 3 ml IH .STK-MED ONE - Progress Air Movement: fair Blood Culture(s) Obtained: No Antibiotics given: Yes - Departure Departure Disposition: Observation Clinical Impression: Bronchitis with bronchospasm Condition: Fair Critical Care Time: No Referrals: ERICA BROCK [Primary Care Provider] -
[2019-12-08 00:58] LABS: Hematocrit 36.7 % (35-47); Hemoglobin 11.8 gm/dl (12.0-16.0); Mean Corpuscular Hemoglobin 29.6 pg (26-32); Mean Corpuscular Hgb Concent. 32.2 g/dl (32-36); Mean Platelet Volume 11.6 fl (7.5-11.0); Platelet Count 190 K/mm3 (150-450); Red Blood Count 3.99 M/mm3 (4.1-5.4); Red Cell Distribution Width 13.4 % (11.5-14.0); White Blood Count 8.1 K/mm3 (4.0-10.5)
[2019-12-08 01:10] LABS: ALKALINE PHOSPHATASE 122 U/L (38-126); ANION GAP 8.4 MEQ/L (5-15); BLOOD UREA NITROGEN 14 mg/dL (7-17); CHLORIDE 107 mmol/L (98-107); Calcium 9.5 mg/dL (8.4-10.2); Carbon Dioxide 31 mmol/L (22-30); Creatinine 1 0.75 mg/dL (0.52-1.04); Glucose 114 mg/dL (74-106); Potassium 3.2 mmol/L (3.5-5.1); SGOT/AST 20 U/L (14-36); SGPT/ALT 16 U/L (0-35); SODIUM 143 mmol/L (137-145); Total Protein 6.9 g/dL (6.3-8.2)
[2019-12-08] MEDS: Sodium Chloride 0.9% 1000 ML 1,000 ML IV SCH ×2 (01:42→20:10)
[2019-12-08] MEDS: OXYCODONE-ACETAMINOPHEN 10-325 PO PRN ×4 (02:33→23:09)
[2019-12-08] MEDS: PROVENTIL 2.5 MG/3 ML NEB IH SCH ×6 (04:05→22:42)
[2019-12-08] MEDS: solu-MEDROL 125 MG IV SCH ×4 (05:43→23:09)
[2019-12-08] MEDS: Advair Hfa 115/21 Common canister IH SCH ×2 (06:36→18:39)
--- NOTE | 2019-12-08 08:13 | PCM.HP ---
History of Present Illness - Chief Complaint Chief Complaint: bronchitis History of Present Illness: is a 43 year old female who presented with cough and shortness of breath, hx of copd and is on 4L NC. claims she is unable to take po steroids and must be admitted for IV steroids. she denies fever, no sputum production with her cough. - Review of Systems Constitutional: No Fever, No Chills Respiratory: Cough, Short Of Breath, Wheezing Cardiac: No Chest Pain, No Edema, No Syncope Abdominal/Gastrointestinal: No Abdominal Pain, No Nausea, No Vomiting, No Diarr hea Genitourinary Symptoms: No Dysuria Skin: No Rash All Other Systems: Reviewed and Negative Medications & Allergies Home Medications: Home Medication List Levothyroxine Sodium 100 Mcg [Synthroid 100 Mcg] 100 mcg PO QAM 09/27/14 [History Confirmed 12/07/19] Simvastatin [Zocor] 20 mg PO HS 09/27/14 [History Confirmed 12/07/19] Clopidogrel Bisulfate 75 mg [PLAVIX 75 MG Tablet] 75 mg PO DAILY 04/05/15 [History Confirmed 12/07/19] Lamotrigine 100 mg [lamICTAL 100MG TABLET] 200 mg PO BID 09/27/15 [History Confirmed 12/07/19] Bumetanide 1 mg [Bumex 1 mg] 1 mg PO DAILY #30 tablet 10/02/15 [Rx Confirmed 12/07/19] Diazepam 5 mg [Valium 5 MG] 5 mg PO TIDPRN 02/14/16 [History Confirmed 12/07/19] Albuterol Sulfate [Ventolin Hfa] 2 puff IH QID 12/21/16 [History Confirmed 12/07/19] Loratadine 10 mg [Claritin 10 mg] 10 mg PO BID 07/30/17 [History Confirmed 12/07/19] Potassium Chloride [K-Dur] 20 meq PO HS 08/03/17 [History Confirmed 12/07/19] Magnesium Oxide 400 mg PO BID 09/10/17 [History Confirmed 12/07/19] Oxycodone / APAP 10/325 mg [Oxycodone-Acetaminophen 10-325] 1 tab PO Q4- 6HPRN PRN 09/10/17 [History Confirmed 12/07/19] Sertraline HCl 50 mg [Zoloft 50 mg Tablet] 100 mg PO DAILY 04/05/18 [History Confirmed 12/07/19] Oxycodone HCl [Oxycontin] 10 mg PO BID 07/24/18 [History Confirmed 12/07/19] Baclofen 10 mg [Lioresal 10 mg] 10 mg PO TID #30 tablet 07/25/18 [Rx Confirmed 12/07/19] Cyanocobalamin/Cobamamide [B-12 5,000 Mcg Sublingual Tab] 5,000 mcg SL QID 01/21/19 [History Confirmed 12/07/19] Ergocalciferol (Vitamin D2) [Vitamin D2] 50,000 units PO WEEKLY 01/21/19 [History Confirmed 12/08/19] Fluticasone Propionate [Flovent 110 Mcg MDI] 1 puff IH BID 01/21/19 [History Confirmed 12/07/19] Folic Acid 1 mg PO BID 01/21/19 [History Confirmed 12/07/19] Propranolol HCl [Propranolol HCl ER] 80 mg PO HS 01/21/19 [History Confirmed 12/08/19] Diltiazem HCl [Diltiazem 24Hr ER] 120 mg PO DAILY #30 cap.sa.24h 01/24/19 [Rx Confirmed 12/07/19] Gabapentin 800 mg PO QID #120 tablet 01/24/19 [Rx Confirmed 12/07/19] Sucralfate 1 gm [Carafate 1 GM] 1 g PO ACHS #12 tablet 01/24/19 [Rx Confirmed 12/07/19] Fluticasone Propionate [Flonase NASAL] 1 spray NS DAILY 07/11/19 [History Confirmed 12/07/19] Allergies/Adverse Reactions: Allergies Allergy/AdvReac Type Severity Reaction Status Date / Time aspirin Allergy Mild Nausea and Verified 12/07/19 23:19 Vomiting codeine [Codeine] Allergy Mild Itching Verified 12/07/19 23:19 Penicillins Allergy Mild Nausea and Verified 12/07/19 23:19 Vomiting promethazine HCl Allergy Mild tremors Verified 12/08/19 01:39 [From Phenergan] fluoxetine HCl [From Prozac] AdvReac Intermediate Verified 12/08/19 01:39 clindamycin AdvReac Verified 12/07/19 23:19 doxycycline hyclate AdvReac Verified 12/07/19 23:19 [From Vibra-Tabs] sulfamethoxazole AdvReac Swelling Verified 12/08/19 01:39 [From Bactrim] trimethoprim [From Bactrim] AdvReac Swelling Verified 12/08/19 01:39 steroid from breathing Allergy Mild Blisters Uncoded 12/07/19 23:19 treatment - Past Medical History Past Medical History: Yes Neurological History: Epilepsy, Seizures, Stroke ENT History: No Pertinent History Cardiac History: Arrhythmia, Congestive Heart Failure, Deep Vein Thrombosis, Hypertension Respiratory History: CHF, Pulmonary Embolism, Other Endocrine Medical History: Diabetes Type II, Hypothyroidism Musculoskelatal History: Other GI Medical History: GERD, Hernia, Ulcer History: No Pertinent History Pyscho-Social History: Anxiety, Bipolar, Depression, Panic Disorder Reproductive Disorders: Endometriosis Comment: Mitral valve prolapse with regurgitation, pt wears 4 L N/C at all times - Female History Are you now?: No - Past Surgical History Past Surgical History: Yes Neuro Surgical History: No Pertinent History Cardiac History: Cardiac Catheterization Respiratory Surgery: No Pertinent History GI Surgical History: Appendectomy, Cholecystectomy, Hernia Repair Genitourinary Surgical Hx: No Pertinent History Musculskeletal Surgical Hx: Joint Replacement, Orthopedic Surgery Female Surgical History: Hysterectomy, Dilation & Curettage Other Surgical History: torn miniscus and implant-RT KNEE" partial scope replacement", oral surgery, melanoma removed for face twice, port placement twice with one removal. - Social History Smoking Status: Former smoker How long have you smoked: 10 years Exposure to second hand smoke: No Alcohol: None Drug Use: none Significant Family History: no pertinent family hx, heart disease, diabetes, hypertension - Physical Exam Vital Signs: Vital Signs - 24 hr Temp Pulse Resp BP Pulse Ox 12/08/19 07:35 98.0 F 50 L 20 104/60 98 12/08/19 06:40 50 L 20 98 12/08/19 04:00 97.0 F 52 L 20 98/57 97 12/08/19 03:54 54 L 22 94 L 07/06/20 02:00 99 12/08/19 01:40 98.6 F 50 L 24 101/56 98 12/08/19 00:33 99 12/08/19 00:24 55 L 24 101/62 98 12/07/19 23:57 60 23 99 12/07/19 23:07 98.6 F 60 20 119/56 98 Oxygen-Last 24 hours Oxygen Flowrate (L/min)-RT 4 Oxygen Flowrate (L/min)-RT 4 General Appearance: no apparent distress Neurologic Exam: alert, oriented x 3 Respiratory Exam: wheezing, No accessory muscle use Cardiovascular Exam: regular rate/rhythm, normal heart sounds, normal peripheral pulses Gastrointestinal/Abdomen Exam: soft, normal bowel sounds, No tenderness, No mass Extremity Exam: normal inspection, normal range of motion, pelvis stable Skin Exam: normal color, warm, dry, No rash Results - Labs Lab/Micro Results: Accuchecks Date 12/08/19 Time 07:30 Accucheck Value: 120 Lab Results-Last 24 Hours 12/08/19 12/08/19 12/08/19 Range/Units 00:40 00:50 00:50 WBC 8.1 (4.0-10.5) K/mm3 RBC 3.99 L (4.1-5.4) M/mm3 Hgb 11.8 L (12.0-16.0) gm/dl Hct 36.7 (35-47) % MCV 92.0 (78-100) fl MCH 29.6 (26-32) pg MCHC 32.2 (32-36) g/dl RDW 13.4 (11.5-14.0) % Plt Count 190 (150-450) K/mm3 MPV 11.6 H (7.5-11.0) fl Sodium 143 (137-145) mmol/L Potassium 3.2 L (3.5-5.1) mmol/L Chloride 107 (98-107) mmol/L Carbon Dioxide 31 H (22-30) mmol/L Anion Gap 8.4 (5-15) MEQ/L BUN 14 (7-17) mg/dL Creatinine 0.75 (0.52-1.04) mg/dL Estimated GFR > 60.0 ML/MIN Glucose 114 H (74-106) mg/dL Hemoglobin A1c 5.16 (4.5-6.0) % Calcium 9.5 (8.4-10.2) mg/dL Magnesium 2.0 (1.6-2.3) mg/dL Total Bilirubin 0.30 (0.2-1.3) mg/dL AST 20 (14-36) U/L ALT 16 (0-35) U/L Alkaline Phosphatase 122 (38-126) U/L Serum Total Protein 6.9 (6.3-8.2) g/dL Albumin 4.0 (3.5-5.0) g/dL Accuchecks Date 12/08/19 Time 07:30 Accucheck Value: 120 - Radiology Impressions Radiology Exams & Impressions: Radiology Procedures Category Date Time Status CHEST 1 VIEW (PORTABLE) Stat Exams 12/08/19 00:06 Taken - Other Procedures and Tests Respiratory Therapy 12/07/19 23:55 Respiratory Therapy Assessment DAILY 12/08/19 00:34 Oxygen Nasal Cannula 4 lpm 12/08/19 00:36 Peak Expiratory Flow Rate BEFORE&AFTER NEB TX Assessment/Plan (1) Acute exacerbation of chronic obstructive pulmonary disease Current Visit: Yes Status: Acute Assessment & Plan: IV steroids, nebs and will add levaquin Code(s): J44.1 - CHRONIC OBSTRUCTIVE PULMONARY DISEASE W (ACUTE) EXACERBATION
--- NOTE | 2019-12-08 09:15 | XRAY ---
Exam: AP upright portable chest film from 12/08/2019. Comparison: Two-view chest from 07/21/2019. Indication: Cough. Findings: The heart size appears normal. I again see a left-sided hailey catheter with the tip pointing inferiorly near the caval-atrial junction. The remainder of the juan and mediastinal structures appears unremarkable. There is mild elevation/eventration of the right hemidiaphragm representing no change. Some concomitant plate atelectasis or fibrotic scarring is seen at the right lung base representing no change. No air space infiltrates, vascular congestion, pneumothorax, or pleural effusion is seen. Slight convexity of the lower thoracic spine toward the left centered at T12 is seen. No acute osseous process is seen. Impression: 1. Left-sided hailey catheter remains in unchanged position. 2. Mild elevation/eventration of the right hemidiaphragm with minimal right basilar plate atelectasis/scarring. This is stable. 3. No acute cardiopulmonary process is seen.
[2019-12-08] MEDS ORDERED: Valium 5 MG PO PRN (09:30)
[2019-12-08] MEDS ORDERED: MEDICATION INTERVENTION PO SCH (09:45)
[2019-12-08] MEDS ORDERED: OXYCODONE HCL 10 MG PO SCH (10:00)
[2019-12-08] MEDS ORDERED: NON-FORMULARY ITEM (Gabapentin [Gabapentin] 800 MG) PO SCH (10:00)
[2019-12-08] MEDS ORDERED: NON-FORMULARY ITEM (Diltiazem Hcl [Diltiazem 24hr Er] 120 MG) PO SCH (10:00)
[2019-12-08] MEDS: Cardizem CD 120 MG PO SCH (10:20)
[2019-12-08] MEDS: ZOLOFT 50 MG TABLET PO SCH (10:20)
[2019-12-08] MEDS: Neurontin 400 MG PO SCH ×4 (10:21→21:50)
[2019-12-08] MEDS: lamICTAL 100MG TABLET PO SCH ×2 (10:22→21:51)
[2019-12-08] MEDS: PLAVIX 75 MG Tablet PO SCH (10:22)
[2019-12-08] MEDS: SYNTHROID 100 MCG PO SCH (10:22)
[2019-12-08] MEDS: CLARITIN 10 MG PO SCH ×2 (10:22→21:51)
[2019-12-08] MEDS: LIORESAL 10 MG PO SCH ×3 (10:22→21:51)
[2019-12-08] MEDS: LEVOFLOXACIN 750MG/150ML D5W 750 MG/150 ML BAG IV SCH (10:22)
[2019-12-08] MEDS: MAG-OX 400 PO SCH ×2 (10:22→21:50)
[2019-12-08] MEDS: Oxycontin 10 MG ER PO SCH ×2 (10:53→21:50)
[2019-12-08] MEDS: Carafate 1 GM PO SCH ×3 (11:20→21:50)
[2019-12-08] MEDS ORDERED: BENADRYL 50 MG/ML IV ONE (12:50)
[2019-12-08] MEDS ORDERED: ZOCOR 20MG PO SCH (22:00)
[2019-12-08] MEDS ORDERED: NON-FORMULARY ITEM (Propranolol Hcl [Propranolol Hcl Er] 80 MG) PO SCH (22:00)
[2019-12-09] MEDS: PROVENTIL 2.5 MG/3 ML NEB IH SCH ×3 (03:01→10:47)
[2019-12-09] MEDS: OXYCODONE-ACETAMINOPHEN 10-325 PO PRN (04:37)
[2019-12-09] MEDS: solu-MEDROL 125 MG IV SCH (05:16)
[2019-12-09 05:21] LABS: Hematocrit 34.5 % (35-47); Hemoglobin 10.9 gm/dl (12.0-16.0); Mean Corpuscular Hemoglobin 29.4 pg (26-32); Mean Corpuscular Hgb Concent. 31.6 g/dl (32-36); Mean Platelet Volume 12.3 fl (7.5-11.0); Platelet Count 151 K/mm3 (150-450); Red Blood Count 3.71 M/mm3 (4.1-5.4); Red Cell Distribution Width 13.3 % (11.5-14.0); White Blood Count 9.1 K/mm3 (4.0-10.5)
[2019-12-09 05:32] LABS: ANION GAP 10.4 MEQ/L (5-15); BLOOD UREA NITROGEN 8 mg/dL (7-17); CHLORIDE 106 mmol/L (98-107); Calcium 9.4 mg/dL (8.4-10.2); Carbon Dioxide 27 mmol/L (22-30); Creatinine 1 0.53 mg/dL (0.52-1.04); Glucose 205 mg/dL (74-106); Potassium 3.5 mmol/L (3.5-5.1); SODIUM 141 mmol/L (137-145)
[2019-12-09 05:54] LABS: Lymphocytes 15 % (24-44); Neutrophils 85 % (36.0-66.0); Platelet Estimate NORMAL (NORMAL); Total Cells Counted 100
[2019-12-09] MEDS: Advair Hfa 115/21 Common canister IH SCH (07:15)
[2019-12-09] MEDS: Oxycontin 10 MG ER PO SCH (07:43)
[2019-12-09] MEDS: Carafate 1 GM PO SCH (07:43)
--- NOTE | 2019-12-09 08:07 | PCM.DS ---
Discharge Summary Date of Admission: 12/08/19 01:22 Admitting Physician: IHSAN NICHOLE Primary Care Provider: ERICA BROCK Allergies Allergies aspirin Allergy (Mild, Verified 12/07/19 23:19) Nausea and Vomiting codeine [Codeine] Allergy (Mild, Verified 12/07/19 23:19) Itching Penicillins Allergy (Mild, Verified 12/07/19 23:19) Nausea and Vomiting promethazine HCl [From Phenergan] Allergy (Mild, Verified 12/08/19 01:39) tremors fluoxetine HCl [From Prozac] Adverse Reaction (Intermediate, Verified 12/08/19 01:39) confusion , "jumped out of a moving truck" clindamycin Adverse Reaction (Verified 12/07/19 23:19) doxycycline hyclate [From Vibra-Tabs] Adverse Reaction (Verified 12/07/19 23:19) sulfamethoxazole [From Bactrim] Adverse Reaction (Verified 12/08/19 01:39) Swelling trimethoprim [From Bactrim] Adverse Reaction (Verified 12/08/19 01:39) Swelling steroid from breathing treatment Allergy (Mild, Uncoded 12/07/19 23:19) Blisters Hospital Summary - Hospital Course Hospital Course: patient was admitted with cough and shortness of breath, treated for copd exacerbation. lungs are clear, she is feeling much better, tolerating po and stable on home oxygen - Vitals & Intake/Output Vital Signs: Vital Signs Temperature 97.8 F 12/09/19 04:00 Pulse Rate 50 L 12/09/19 06:00 Respiratory Rate 16 12/09/19 06:00 Blood Pressure 138/76 12/09/19 04:00 O2 Sat by Pulse Oximetry 95 12/09/19 06:00 Intake & Output: Intake & Output 12/06/19 12/07/19 12/08/19 12/09/19 11:59 11:59 11:59 11:59 Intake Total 950 3309 Output Total 800 2000 Balance 150 1309 Weight 88.9 kg - Lab Result Diagrams: 12/09/19 04:52 12/09/19 04:52 Lab Results-Last 24 Hrs: Accuchecks Date 12/08/19 Date 12/08/19 Date 12/08/19 Time 22:00 Time 16:30 Time 11:30 Accucheck Value: 271 Accucheck Value: 169 Accucheck Value: 126 Lab Results-Last 24 Hours 12/09/19 12/09/19 Range/Units 04:52 04:52 WBC 9.1 (4.0-10.5) K/mm3 RBC 3.71 L (4.1-5.4) M/mm3 Hgb 10.9 L (12.0-16.0) gm/dl Hct 34.5 L (35-47) % MCV 93.0 (78-100) fl MCH 29.4 (26-32) pg MCHC 31.6 L (32-36) g/dl RDW 13.3 (11.5-14.0) % Plt Count 151 (150-450) K/mm3 MPV 12.3 H (7.5-11.0) fl Segmented Neutrophils 85 H (36.0-66.0) % Lymphocytes (Manual) 15 L (24-44) % Platelet Estimate NORMAL (NORMAL) RBC Morphology NORMAL Sodium 141 (137-145) mmol/L Potassium 3.5 (3.5-5.1) mmol/L Chloride 106 (98-107) mmol/L Carbon Dioxide 27 (22-30) mmol/L Anion Gap 10.4 (5-15) MEQ/L BUN 8 (7-17) mg/dL Creatinine 0.53 (0.52-1.04) mg/dL Estimated GFR > 60.0 ML/MIN Glucose 205 H (74-106) mg/dL Calcium 9.4 (8.4-10.2) mg/dL Micro Results-Entire Visit: Accuchecks Date 12/08/19 Date 12/08/19 Date 12/08/19 Time 22:00 Time 16:30 Time 11:30 Accucheck Value: 271 Accucheck Value: 169 Accucheck Value: 126 - Radiology Exams Ordered Rad Exams-Entire Visit: Radiology Procedures Category Date Time Status CHEST 1 VIEW (PORTABLE) Stat Exams 12/08/19 00:06 Completed - Procedures and Test Procedures and Tests throughout Hospitalization: Therapy Orders & Screens 12/07/19 23:55 Respiratory Therapy Assessment DAILY Comment: 12/08/19 00:34 Oxygen Nasal Cannula 4 lpm Comment: 12/08/19 00:36 Peak Expiratory Flow Rate BEFORE&AFTER NEB TX Comment: Before and after nebulizer treatments Reason For Exam: Respiratory Therapy Consult ROUTINE Comment: Reason For Exam: Discharge Exam General Appearance: no apparent distress, alert Neurologic Exam: alert, oriented x 3 Respiratory Exam: lungs clear, prolonged expirations Cardiovascular Exam: regular rate/rhythm, normal heart sounds Gastrointestinal/Abdomen Exam: soft, No tenderness, No mass Extremity Exam: normal inspection, normal range of motion Skin Exam: normal color, warm, dry Final Diagnosis/Problem List - Final Discharge Diagnosis/Problem (1) Acute exacerbation of chronic obstructive pulmonary disease Current Visit: Yes Status: Acute Assessment & Plan: home on levaquin and nebs, states she cannot tolerate po steroids. Code(s): J44.1 - CHRONIC OBSTRUCTIVE PULMONARY DISEASE W (ACUTE) EXACERBATION - Discharge Disposition: Home, Self-Care Condition: Good Prescriptions: New Levofloxacin [Levaquin] 1 tab PO DAILY #3 tablet Continue Simvastatin [Zocor] 20 mg PO HS Levothyroxine Sodium 100 Mcg [Synthroid 100 Mcg] 100 mcg PO QAM Clopidogrel Bisulfate 75 mg [PLAVIX 75 MG Tablet] 75 mg PO DAILY Lamotrigine 100 mg [lamICTAL 100MG TABLET] 200 mg PO BID Bumetanide 1 mg [Bumex 1 mg] 1 mg PO DAILY #30 tablet Diazepam 5 mg [Valium 5 MG] 5 mg PO TIDPRN Albuterol Sulfate [Ventolin Hfa] 2 puff IH QID Loratadine 10 mg [Claritin 10 mg] 10 mg PO BID Potassium Chloride [K-Dur] 20 meq PO HS Oxycodone / APAP 10/325 mg [Oxycodone-Acetaminophen 10-325] 1 tab PO Q4-6HPRN PRN PRN Reason: Pain Magnesium Oxide 400 mg PO BID Sertraline HCl 50 mg [Zoloft 50 mg Tablet] 100 mg PO DAILY Oxycodone HCl [Oxycontin] 10 mg PO BID Baclofen 10 mg [Lioresal 10 mg] 10 mg PO TID #30 tablet Folic Acid 1 mg PO BID Fluticasone Propionate [Flovent 110 Mcg MDI] 1 puff IH BID Propranolol HCl [Propranolol HCl ER] 80 mg PO HS Ergocalciferol (Vitamin D2) [Vitamin D2] 50,000 units PO WEEKLY Cyanocobalamin/Cobamamide [B-12 5,000 Mcg Sublingual Tab] 5,000 mcg SL QID Diltiazem HCl [Diltiazem 24Hr ER] 120 mg PO DAILY #30 cap.sa.24h Gabapentin 800 mg PO QID #120 tablet Sucralfate 1 gm [Carafate 1 GM] 1 g PO ACHS #12 tablet Fluticasone Propionate [Flonase NASAL] 1 spray NS DAILY Additional Instructions: use nebulizer every 4 hours while you are awake, take levaquin and your other home meds as directed. return for new symptoms or severe shortness of breath or other concerns. Follow up with: ERICA BROCK [Primary Care Provider] - 1 Week
[2019-12-09 08:09] VITALS: BP 132/80
[2019-12-09] MEDS: Neurontin 400 MG PO SCH (08:39)
[2019-12-09] MEDS: CLARITIN 10 MG PO SCH (08:39)
[2019-12-09] MEDS: LEVOFLOXACIN 750MG/150ML D5W 750 MG/150 ML BAG IV SCH (08:39)
[2019-12-09] MEDS: ZOLOFT 50 MG TABLET PO SCH (08:39)
[2019-12-09] MEDS: LIORESAL 10 MG PO SCH (08:40)
[2019-12-09] MEDS: Cardizem CD 120 MG PO SCH (08:40)
[2019-12-09] MEDS: SYNTHROID 100 MCG PO SCH (08:40)
[2019-12-09] MEDS: lamICTAL 100MG TABLET PO SCH (08:40)
[2019-12-09] MEDS: MAG-OX 400 PO SCH (08:40)
[2019-12-09] MEDS: PLAVIX 75 MG Tablet PO SCH (08:40)
[2019-12-09 10:53] VITALS: PULSE 71; O2SAT 96
== END 2019-12-09 11:28 | disposition home or self-care (01) ==
LOC: ED 23:06 → MED SURG 12-08 01:22
PROVIDERS: ADMIT Family Medicine; ATTEND Family Medicine
DX: J44.1 Chronic obstructive pulmonary disease with (acute) exacerbation (principal); J96.11 Chronic respiratory failure with hypoxia; E11.9 Type 2 diabetes mellitus without complications; E03.9 Hypothyroidism, unspecified; Z79.899 Other long term (current) drug therapy; Z99.81 Dependence on supplemental oxygen; Z79.01 Long term (current) use of anticoagulants; Z86.718 Personal history of other venous thrombosis and embolism
CPT/HCPCS: 36000; 36415; 71045; 80048; 80053; 82962; 83036; 83735; 85025; 85027; 93268; 94640; 94760; 94762; 99285; G0378; J1200; J1642; J1956; J2930; J7609; A9270-GY

== ENCOUNTER 2020-01-02 18:13 | Emergency (ER) | payer OTHER ==
--- NOTE | 2020-01-02 18:17 | ERPHSYRPT ---
- History of Present Illness Time Seen by Provider: 01/02/20 18:17 Source: patient Exam Limitations: no limitations Physician History: This is a 44-year-old female has a history of migraine headaches. This is not the worst headache she is ever had. The migraine headache is slightly different than her typical. She denies any head injury. She is had no fever no cough no chest pain no shortness of breath. Patient does have a history of chronic COPD, diabetes, anxiety, hypothyroidism, and hypertension. Patient states that it feels more like a sinus pressure. She wants to be sure she is placed on antibiotics because she had something similar to this in the past and it turned into a upper respiratory infection. Patient has not been on her OxyContin or oxycodone for several months for chronic pain control and migraine headache management. Patient drove here her and her here tonight. Severity: moderate Associated Symptoms: headaches Allergies/Adverse Reactions: aspirin Allergy (Mild, Verified 01/02/20 18:26) Nausea and Vomiting codeine [Codeine] Allergy (Mild, Verified 01/02/20 18:26) Itching Penicillins Allergy (Mild, Verified 01/02/20 18:26) Nausea and Vomiting promethazine HCl [From Phenergan] Allergy (Mild, Verified 01/02/20 18:26) tremors fluoxetine HCl [From Prozac] Adverse Reaction (Intermediate, Verified 01/02/20 18:26) confusion , "jumped out of a moving truck" clindamycin Adverse Reaction (Verified 01/02/20 18:26) doxycycline hyclate [From Vibra-Tabs] Adverse Reaction (Verified 01/02/20 18:26) sulfamethoxazole [From Bactrim] Adverse Reaction (Verified 01/02/20 18:26) Swelling trimethoprim [From Bactrim] Adverse Reaction (Verified 01/02/20 18:26) Swelling steroid from breathing treatment Allergy (Mild, Uncoded 01/02/20 18:26) Blisters Home Medications: Levothyroxine Sodium 100 Mcg [Synthroid 100 Mcg] 100 mcg PO QAM 09/27/14 [History] Simvastatin [Zocor] 20 mg PO HS 09/27/14 [History] Clopidogrel Bisulfate 75 mg [PLAVIX 75 MG Tablet] 75 mg PO DAILY 04/05/15 [History] Lamotrigine 100 mg [lamICTAL 100MG TABLET] 200 mg PO BID 09/27/15 [History] Diazepam 5 mg [Valium 5 MG] 5 mg PO TIDPRN 02/14/16 [History] Albuterol Sulfate [Ventolin Hfa] 2 puff IH QID 12/21/16 [History] Loratadine 10 mg [Claritin 10 mg] 10 mg PO BID 07/30/17 [History] Potassium Chloride [K-Dur] 20 meq PO HS 08/03/17 [History] Magnesium Oxide 400 mg PO BID 09/10/17 [History] Sertraline HCl 50 mg [Zoloft 50 mg Tablet] 100 mg PO DAILY 04/05/18 [History] Cyanocobalamin/Cobamamide [B-12 5,000 Mcg Sublingual Tab] 5,000 mcg SL QID 01/21/19 [History] Ergocalciferol (Vitamin D2) [Vitamin D2] 50,000 units PO WEEKLY 01/21/19 [History] Fluticasone Propionate [Flovent 110 Mcg MDI] 1 puff IH BID 01/21/19 [History] Folic Acid 1 mg PO BID 01/21/19 [History] Propranolol HCl [Propranolol HCl ER] 80 mg PO HS 01/21/19 [History] Fluticasone Propionate [Flonase NASAL] 1 spray NS DAILY 07/11/19 [History] Hx Tetanus, Diphtheria Vaccination/Date Given: Yes Hx Influenza Vaccination/Date Given: Yes Hx Pneumococcal Vaccination/Date Given: Yes Travel Risk - International Travel Have you traveled outside of the country in past 3 weeks: No - Coronavirus Screening Are you exhibiting any of the following symptoms?: No Close contact with a COVID-19 positive Pt in past 14-21 Days: No - Review of Systems Constitutional: No Symptoms Eyes: No Symptoms Ears, Nose, & Throat: Other (Sinus pressure) Respiratory: No Symptoms Cardiac: No Symptoms Abdominal/Gastrointestinal: No Symptoms Genitourinary Symptoms: No Symptoms Musculoskeletal: No Symptoms Skin: No Symptoms Neurological: No Symptoms Psychological: No Symptoms Endocrine: No Symptoms Hematologic/Lymphatic: No Symptoms Immunological/Allergic: No Symptoms All Other Systems: Reviewed and Negative - Past Medical History Pertinent Past Medical History: Yes Neurological History: Epilepsy, Seizures, Stroke ENT History: No Pertinent History Cardiac History: Arrhythmia, Congestive Heart Failure, Deep Vein Thrombosis, Hypertension Respiratory History: CHF, Pulmonary Embolism, Other Endocrine Medical History: Diabetes Type II, Hypothyroidism Musculoskeletal History: Other GI Medical History: GERD, Hernia, Ulcer History: No Pertinent History Psycho-Social History: Anxiety, Bipolar, Depression, Panic Disorder Female Reproductive Disorders: Endometriosis Other Medical History: Mitral valve prolapse with regurgitation, pt wears 4 L N/C at all times - Past Surgical History Past Surgical History: Yes Neuro Surgical History: No Pertinent History Cardiac: Cardiac Catheterization Respiratory: No Pertinent History Gastrointestinal: Appendectomy, Cholecystectomy, Hernia Repair Genitourinary: No Pertinent History Musculoskeletal: Joint Replacement, Orthopedic Surgery Female Surgical History: Hysterectomy, Dilation & Curettage Other Surgical History: torn miniscus and implant-RT KNEE" partial scope replacement", oral surgery, melanoma removed for face twice, port placement twice with one removal. - Social History Smoking Status: Former smoker How long have you smoked: 10 years Exposure to second hand smoke: No Alcohol Use: None Drug Use: none Patient Lives Alone: No Significant Family History: no pertinent family hx, heart disease, diabetes, hypertension - Nursing Vital Signs Nursing Vital Signs: Initial Vital Signs Temperature 98.7 F 01/02/20 18:13 Pulse Rate 75 01/02/20 18:13 Respiratory Rate 18 01/02/20 18:13 Blood Pressure 118/74 01/02/20 18:13 O2 Sat by Pulse Oximetry 98 01/02/20 18:13 Pain Scale Pain Intensity 8 - Physical Exam General Appearance: no apparent distress, alert, anxiety Eye Exam: PERRL/EOMI, eyes nml inspection Ears, Nose, Throat Exam: normal ENT inspection, moist mucous membranes Neck Exam: normal inspection, non-tender, supple, full range of motion Respiratory Exam: airway intact, No chest tenderness, No respiratory distress Gastrointestinal/Abdomen Exam: No tenderness Pelvic Exam: not done Rectal Exam: not done Back Exam: normal inspection, normal range of motion, No CVA tenderness, No vertebral tenderness Extremity Exam: normal inspection, normal range of motion, pelvis stable Neurologic Exam: alert, oriented x 3, cooperative, spool sorter II-XII nml as tested, normal mood/affect, nml cerebellar function, nml station & gait, sensation nml Skin Exam: normal color, warm, dry Lymphatic Exam: No adenopathy SpO2 Interpretation: normal O2 Delivery: Room Air - Progress Progress: unchanged Progress Note: 01/02/20 19:02 This patient drove her and her here to the emergency room. Patient does not seem to me to be in significant distress. We will order a Z-Jacob for her and I will give her to take home Percocet medications for her headache. I will not provide her any more narcotics than that. She is not having the most severe headache she is ever had. She is neurologically intact. Her blood pressure is normal. 01/02/20 19:03 Counseled pt/family regarding: diagnosis, need for follow-up - Departure Departure Disposition: Home Clinical Impression: Sinus pressure, Headache Condition: Stable Critical Care Time: No Referrals: ERICA BROCK [Primary Care Provider] - Additional Instructions: Take your medications as prescribed. Follow-up with your primary care physician on Sunday. Prescriptions: Azithromycin 250 mg [Zithromax 250 MG TABLET] 250 mg PO ZPACK #6 tablet
[2020-01-02] MEDS ORDERED: PERCOCET TABLET 5/325MG PO STA (19:06)
[2020-01-02] MEDS ORDERED: PERCOCET TABLET 5/325MG ONE (19:20)
[2020-01-02 19:34] VITALS: BP 122/82; PULSE 70; O2SAT 97
== END 2020-01-02 19:55 | disposition home or self-care (01) ==
LOC: ED 18:13
DX: J32.9 Chronic sinusitis, unspecified (principal); R51 Headache; I50.9 Heart failure, unspecified; Z86.718 Personal history of other venous thrombosis and embolism; I10 Essential (primary) hypertension; E03.9 Hypothyroidism, unspecified; E11.9 Type 2 diabetes mellitus without complications; K21.9 Gastro-esophageal reflux disease without esophagitis; F31.9 Bipolar disorder, unspecified
CPT/HCPCS: 99283; A9270-GY

== ENCOUNTER 2020-04-22 16:27 | Emergency (ER) | payer OTHER ==
[2020-04-22] MEDS ORDERED: Nitrostat 0.4 MG (ED) SL ONE (16:55)
[2020-04-22] MEDS ORDERED: Sodium Chloride 0.9% 1000 ML 1,000 ML IV STA (16:55)
--- NOTE | 2020-04-22 17:06 | ERPHSYRPT ---
- History of Present Illness Time Seen by Provider: 04/22/20 16:45 Historian: patient Exam Limitations: no limitations Patient Subjective Stated Complaint: Pt states "I have had chest pain ever since I woke up at 830 this morning. My face is numb as well and I get dizzy when I stand up too." Triage Nursing Assessment: Pt presented alert and oriented X 3, skin pwd Pt ambulates with an upright steady gait, able to speak in clear full sentencse pt in no apparent distress. Physician History: patient has had persistent chest tightness in the center of her chest with radiation down to her left for the past 8 hours. Patient can not take aspirin due to allergy and she had no nitroglycerin to take. Patient has not been evaluated or treated prior to coming into the emergency department. Patient has had a negative cardiac catheterization in the past Timing/Duration: hour(s) (8) Activities at Onset: none Quality: tightness Location: substernal, central Chest Pain Radiation: jaw, arm Severity of Pain-Max: severe Severity of Pain-Current: severe Modifying Factors: Improves With: nothing Associated Symptoms: shortness of breath, No nausea, No vomiting, No palpitations, No abdominal pain, No cough, No hurts to breathe, No diaphoresis, No chills, No fever, No fatigue, No syncope, No rash, No headache, No dizziness, No edema, No back pain Prior Chest Pain/Cardiac Workup: cardiac cath (it was negative per her history), pulmonary embolism Nitro Today/Relief: no nitro taken today Aspirin Treatment Today: no aspirin today Allergies/Adverse Reactions: aspirin Allergy (Mild, Verified 01/02/20 18:26) Nausea and Vomiting codeine [Codeine] Allergy (Mild, Verified 01/02/20 18:26) Itching Penicillins Allergy (Mild, Verified 01/02/20 18:26) Nausea and Vomiting promethazine HCl [From Phenergan] Allergy (Mild, Verified 01/02/20 18:26) tremors fluoxetine HCl [From Prozac] Adverse Reaction (Intermediate, Verified 01/02/20 18:26) confusion , "jumped out of a moving truck" clindamycin Adverse Reaction (Verified 01/02/20 18:26) doxycycline hyclate [From Vibra-Tabs] Adverse Reaction (Verified 01/02/20 18:26) sulfamethoxazole [From Bactrim] Adverse Reaction (Verified 01/02/20 18:26) Swelling trimethoprim [From Bactrim] Adverse Reaction (Verified 01/02/20 18:26) Swelling steroid from breathing treatment Allergy (Mild, Uncoded 01/02/20 18:26) Blisters Home Medications: Levothyroxine Sodium 100 Mcg [Synthroid 100 Mcg] 100 mcg PO QAM 09/27/14 [History] Simvastatin [Zocor] 20 mg PO HS 09/27/14 [History] Clopidogrel Bisulfate 75 mg [PLAVIX 75 MG Tablet] 75 mg PO DAILY 04/05/15 [History] Lamotrigine 100 mg [lamICTAL 100MG TABLET] 200 mg PO BID 09/27/15 [History] Diazepam 5 mg [Valium 5 MG] 5 mg PO TIDPRN 02/14/16 [History] Albuterol Sulfate [Ventolin Hfa] 2 puff IH QID 12/21/16 [History] Loratadine 10 mg [Claritin 10 mg] 10 mg PO BID 07/30/17 [History] Potassium Chloride [K-Dur] 20 meq PO HS 08/03/17 [History] Magnesium Oxide 400 mg PO BID 09/10/17 [History] Cyanocobalamin/Cobamamide [B-12 5,000 Mcg Sublingual Tab] 5,000 mcg SL QID 01/21/19 [History] Ergocalciferol (Vitamin D2) [Vitamin D2] 50,000 units PO WEEKLY 01/21/19 [History] Fluticasone Propionate [Flovent 110 Mcg MDI] 1 puff IH BID 01/21/19 [History] Folic Acid 1 mg PO BID 01/21/19 [History] Propranolol HCl [Propranolol HCl ER] 80 mg PO HS 01/21/19 [History] Fluticasone Propionate [Flonase NASAL] 1 spray NS DAILY 07/11/19 [History] Diltiazem HCl [Cartia Xt] 180 mg PO DAILY 04/22/20 [History] Hydrocodone/Acetaminophen [Vicodin Hp 10-300 mg Tablet] 1 each PO DAILY PRN 11/19/20 [History] Hydroxyzine HCl 25 mg [Atarax 25 mg] 25 mg PO DAILY 04/22/20 [History] Hx Tetanus, Diphtheria Vaccination/Date Given: Yes Hx Influenza Vaccination/Date Given: No Hx Pneumococcal Vaccination/Date Given: No Immunizations Up to Date: Yes Travel Risk - International Travel Have you traveled outside of the country in past 3 weeks: No - Coronavirus Screening Are you exhibiting any of the following symptoms?: No Close contact with a COVID-19 positive Pt in past 14-21 Days: No - Review of Systems Constitutional: No Fever, No Chills Eyes: No Eye Pain, No Vision Changes Ears, Nose, & Throat: No Throat Pain, No Painful Swallowing Respiratory: No Cough, No Dyspnea Cardiac: Chest Pain, No Edema, No Syncope Abdominal/Gastrointestinal: No Abdominal Pain, No Nausea, No Vomiting, No Diarrhea Genitourinary Symptoms: No Dysuria, No Hematuria, No Flank Pain Musculoskeletal: No Back Pain, No Neck Pain Skin: No Rash Neurological: No Dizziness, No Focal Weakness, No Headache, No Sensory Changes Psychological: No Symptoms Endocrine: No Symptoms Hematologic/Lymphatic: No Easy Bleeding, No Easy Bruising All Other Systems: Reviewed and Negative - Past Medical History Pertinent Past Medical History: Yes Neurological History: Epilepsy, Seizures, Stroke ENT History: No Pertinent History Cardiac History: Arrhythmia, Congestive Heart Failure, Deep Vein Thrombosis, Hypertension Respiratory History: CHF, Pulmonary Embolism, Other Endocrine Medical History: Diabetes Type II, Hypothyroidism Musculoskeletal History: Other GI Medical History: GERD, Hernia, Ulcer History: No Pertinent History Psycho-Social History: Anxiety, Bipolar, Depression, Panic Disorder Female Reproductive Disorders: Endometriosis Other Medical History: Mitral valve prolapse with regurgitation, pt wears 4 L N/C at all times - Past Surgical History Past Surgical History: Yes Neuro Surgical History: No Pertinent History Cardiac: Cardiac Catheterization Respiratory: No Pertinent History Gastrointestinal: Appendectomy, Cholecystectomy, Hernia Repair Genitourinary: No Pertinent History Musculoskeletal: Joint Replacement, Orthopedic Surgery Female Surgical History: Hysterectomy, Dilation & Curettage Other Surgical History: torn miniscus and implant-RT KNEE" partial scope replacement", oral surgery, melanoma removed for face twice, port placement twice with one removal. - Social History Smoking Status: Former smoker How long have you smoked: 10 years Exposure to second hand smoke: Yes Alcohol Use: None Drug Use: none Patient Lives Alone: No Significant Family History: no pertinent family hx, heart disease, diabetes, hypertension - Female History Hx Last Menstrual Period: hysterectomy Hx Now: No - Nursing Vital Signs Nursing Vital Signs: Initial Vital Signs Temperature 98.2 F 04/22/20 16:29 Pulse Rate 70 04/22/20 16:29 Respiratory Rate 20 04/22/20 16:29 Blood Pressure 139/87 04/22/20 16:29 O2 Sat by Pulse Oximetry 99 04/22/20 16:29 Pain Scale Pain Intensity 8 - Physical Exam General Appearance: no apparent distress, alert Eye Exam: PERRL/EOMI, eyes nml inspection, No scleral icterus, No pale conjunctivae Ears, Nose, Throat Exam: normal ENT inspection, pharynx normal, moist mucous membranes Neck Exam: normal inspection, non-tender, supple, full range of motion Respiratory Exam: normal breath sounds, chest tenderness (over the left chest healed incision site of the port, but no induration, fluctuance or erythema), lungs clear, No respiratory distress Cardiovascular Exam: regular rate/rhythm, normal heart sounds, normal peripheral pulses, capillary refill <2 sec Gastrointestinal/Abdomen Exam: soft, normal bowel sounds, No tenderness, No mass, No guarding, No rebound Back Exam: normal inspection, No CVA tenderness, No vertebral tenderness Extremity Exam: normal inspection, normal range of motion Neurologic Exam: alert, oriented x 3, cooperative, ferry hand II-XII nml as tested, normal mood/affect, sensation nml, No motor deficits Skin Exam: normal color, warm, dry, No rash, No petechiae, No jaundice SpO2 Interpretation: normal SpO2: 99 O2 Delivery: Room Air - Course Nursing assessment & vital signs reviewed: Yes EKG Interpreted by Me: RATE (72), Sinus Rhythm, NORMAL AXIS, NORMAL INTERVALS, NORMAL QRS, NORMAL ST-T, Other (No appreciable change in comparison to EKG from 09/17/2018) - Radiology Exams Chest X-ray Interpretation: Interpreted by me, Reviewed by me, No Pneumonia, No Pneumothorax, Nml Heart Size, No Infiltrates, Nml Mediastinum, Other (port in place, unchanged chest x-ray in comparison to chest x-ray form 12/08/2019) Ordered Tests: Active Orders 24 hr Category Date Time Status Shactor Helper STAT Care 04/22/20 16:30 Active Clean Catch Urine Specimen STAT Care 04/22/20 16:55 Active EKG-ER Only STAT Care 04/22/20 16:30 Active IV Insertion STAT Care 04/22/20 16:55 Active CHEST 1 VIEW (PORTABLE) Stat Exams 04/22/20 16:55 Taken CHEST WITH CONTRAST [CT] Stat Exams 04/22/20 18:29 Ordered BNP [NT PRO BNP] Stat Lab 04/22/20 17:00 Completed CBC W DIFF Stat Lab 04/22/20 17:00 Completed CK-Creatinine Phosphokinase Stat Lab 04/22/20 17:00 Completed CMP Stat Lab 04/22/20 17:00 Completed HCG,QUALITATIVE URINE Stat Lab 04/22/20 18:18 Completed MAGNESIUM Stat Lab 04/22/20 17:00 Completed NT PRO BNP Stat Lab 04/22/20 17:00 Completed PROTIME WITH INR Stat Lab 04/22/20 17:00 Completed PTT Stat Lab 04/22/20 17:00 Completed TROPONIN Q3H Lab 04/22/20 17:00 Completed TROPONIN Q3H Lab 04/22/20 20:00 Ordered TROPONIN Q3H Lab 04/22/20 23:00 Ordered TROPONIN Q3H Lab 04/23/20 02:00 Ordered TROPONIN Q3H Lab 04/23/20 05:00 Ordered Urine Triage Profile Stat Lab 04/22/20 18:18 Completed VENOUS BLOOD GAS Stat Lab 04/22/20 17:09 Completed Medication Summary Generic Name Dose Route Start Last Admin Trade Name Freq PRN Reason Stop Dose Admin Dexamethasone Sodium Phosphate 10 mg 04/22/20 19:00 Decadron 10mg Inj. IV 04/22/20 19:01 STAT ONE Diphenhydramine HCl 50 mg 04/22/20 19:01 Benadryl 50 Mg/Ml IV 04/22/20 19:02 STAT ONE Famotidine 40 mg 04/22/20 19:01 Pepcid 20 Mg Vial IV 04/22/20 19:02 STAT ONE Discontinued Medications Generic Name Dose Route Start Last Admin Trade Name Freq PRN Reason Stop Dose Admin Sodium Chloride 1,000 mls @ 999 mls/hr 04/22/20 16:55 04/22/20 18:20 Sodium Chloride 0.9% 1000 Ml IV 04/22/20 17:55 Infused .Q1H1M STA Infusion Sodium Chloride Confirm 04/22/20 17:12 Sodium Chloride 0.9% 1000 Ml Administered 04/22/20 17:13 Dose 1,000 mls @ ud .ROUTE .STK-MED ONE Nitroglycerin 0.4 mg 04/22/20 16:55 04/22/20 17:14 Nitrostat 0.4 Mg (Ed) SL 04/22/20 16:56 0.4 mg STAT ONE Administration Lab/Rad Data: Laboratory Result Diagrams 04/22/20 17:00 04/22/20 17:00 Laboratory Results 04/22/20 04/22/20 04/22/20 Range/Units 18:18 18:18 17:09 WBC (4.0-10.5) K/mm3 RBC (4.1-5.4) M/mm3 Hgb (12.0-16.0) gm/dl Hct (35-47) % MCV (78-100) fl MCH (26-32) pg MCHC (32-36) g/dl RDW (11.5-14.0) % Plt Count (150-450) K/mm3 MPV (7.5-11.0) fl Gran % (36.0-66.0) % Eos # (Auto) (0-0.5) Absolute Lymphs (auto) (1.0-4.6) Absolute Monos (auto) (0.0-1.3) Lymphocytes % (24.0-44.0) % Monocytes % (0.0-12.0) % Eosinophils % (0.00-5.0) % Basophils % (0.0-0.4) % Absolute Granulocytes (1.4-6.9) Basophils # (0-0.4) PT (9.95-12.35) SECONDS INR (0.8-3.0) APTT (25.3-37.0) SECONDS pO2/FiO2 Ratio 21.0 % VBG pH 7.42 (7.32-7.42) VBG pCO2 at Pat Temp 48 (42-55) mm/Hg VBG pO2 at Pat Temp 49 H (25-40) mm/Hg VBG HCO3 31.1 H* (22-28) meq/L VBG O2 Sat (Nickie) 86.7 L (95-100) VBG Base Excess 5.5 H (-2.0-2.0) VBG Hemoglobin 13.6 VBG Carboxyhemoglobin 7.7 H* (0.0-6.9) % T HGB POC Potassium 3.5 (3.5-5.1) Sodium (137-145) mmol/L Potassium (3.5-5.1) mmol/L Chloride (98-107) mmol/L Carbon Dioxide (22-30) mmol/L Anion Gap (5-15) MEQ/L BUN (7-17) mg/dL Creatinine (0.52-1.04) mg/dL Estimated GFR ML/MIN Glucose (74-106) mg/dL Calcium (8.4-10.2) mg/dL Magnesium (1.6-2.3) mg/dL Total Bilirubin (0.2-1.3) mg/dL AST (14-36) U/L ALT (0-35) U/L Alkaline Phosphatase (38-126) U/L Creatine Kinase (30-135) U/L Troponin I (0.000-0.034) ng/mL NT-Pro-B Natriuret Pep (0-450) pg/mL Serum Total Protein (6.3-8.2) g/dL Albumin (3.5-5.0) g/dL Urine HCG, Qual NEGATIVE (Negative) Urine Opiates Level NEGATIVE (NEGATIVE) Ur Methadone NEGATIVE (NEGATIVE) Urine Barbiturates NEGATIVE (NEGATIVE) Ur Phencyclidine (PCP) NEGATIVE (NEGATIVE) Urine Amphetamine NEGATIVE (NEGATIVE) U Benzodiazepine Level NEGATIVE (NEGATIVE) Urine Cocaine NEGATIVE (NEGATIVE) Urine Marijuana (THC) NEGATIVE (NEGATIVE) 04/22/20 04/22/20 04/22/20 Range/Units 17:00 17:00 17:00 WBC (4.0-10.5) K/mm3 RBC (4.1-5.4) M/mm3 Hgb (12.0-16.0) gm/dl Hct (35-47) % MCV (78-100) fl MCH (26-32) pg MCHC (32-36) g/dl RDW (11.5-14.0) % Plt Count (150-450) K/mm3 MPV (7.5-11.0) fl Gran % (36.0-66.0) % Eos # (Auto) (0-0.5) Absolute Lymphs (auto) (1.0-4.6) Absolute Monos (auto) (0.0-1.3) Lymphocytes % (24.0-44.0) % Monocytes % (0.0-12.0) % Eosinophils % (0.00-5.0) % Basophils % (0.0-0.4) % Absolute Granulocytes (1.4-6.9) Basophils # (0-0.4) PT 11.9 (9.95-12.35) SECONDS INR 1.05 (0.8-3.0) APTT 35.8 (25.3-37.0) SECONDS pO2/FiO2 Ratio % VBG pH (7.32-7.42) VBG pCO2 at Pat Temp (42-55) mm/Hg VBG pO2 at Pat Temp (25-40) mm/Hg VBG HCO3 (22-28) meq/L VBG O2 Sat (Nickie) (95-100) VBG Base Excess (-2.0-2.0) VBG Hemoglobin VBG Carboxyhemoglobin (0.0-6.9) % T HGB POC Potassium (3.5-5.1) Sodium (137-145) mmol/L Potassium (3.5-5.1) mmol/L Chloride (98-107) mmol/L Carbon Dioxide (22-30) mmol/L Anion Gap (5-15) MEQ/L BUN (7-17) mg/dL Creatinine (0.52-1.04) mg/dL Estimated GFR ML/MIN Glucose (74-106) mg/dL Calcium (8.4-10.2) mg/dL Magnesium 2.4 H (1.6-2.3) mg/dL Total Bilirubin (0.2-1.3) mg/dL AST (14-36) U/L ALT (0-35) U/L Alkaline Phosphatase (38-126) U/L Creatine Kinase (30-135) U/L Troponin I < 0.012 (0.000-0.034) ng/mL NT-Pro-B Natriuret Pep 51.5 (0-450) pg/mL Serum Total Protein (6.3-8.2) g/dL Albumin (3.5-5.0) g/dL Urine HCG, Qual (Negative) Urine Opiates Level (NEGATIVE) Ur Methadone (NEGATIVE) Urine Barbiturates (NEGATIVE) Ur Phencyclidine (PCP) (NEGATIVE) Urine Amphetamine (NEGATIVE) U Benzodiazepine Level (NEGATIVE) Urine Cocaine (NEGATIVE) Urine Marijuana (THC) (NEGATIVE) 04/22/20 04/22/20 Range/Units 17:00 17:00 WBC 5.4 (4.0-10.5) K/mm3 RBC 4.31 (4.1-5.4) M/mm3 Hgb 12.6 (12.0-16.0) gm/dl Hct 38.7 (35-47) % MCV 89.8 (78-100) fl MCH 29.2 (26-32) pg MCHC 32.6 (32-36) g/dl RDW 13.5 (11.5-14.0) % Plt Count 196 (150-450) K/mm3 MPV 10.8 (7.5-11.0) fl Gran % 47.9 (36.0-66.0) % Eos # (Auto) 0.39 (0-0.5) Absolute Lymphs (auto) 1.99 (1.0-4.6) Absolute Monos (auto) 0.43 (0.0-1.3) Lymphocytes % 36.8 (24.0-44.0) % Monocytes % 7.9 (0.0-12.0) % Eosinophils % 7.2 H (0.00-5.0) % Basophils % 0.2 (0.0-0.4) % Absolute Granulocytes 2.59 (1.4-6.9) Basophils # 0.01 (0-0.4) PT (9.95-12.35) SECONDS INR (0.8-3.0) APTT (25.3-37.0) SECONDS pO2/FiO2 Ratio % VBG pH (7.32-7.42) VBG pCO2 at Pat Temp (42-55) mm/Hg VBG pO2 at Pat Temp (25-40) mm/Hg VBG HCO3 (22-28) meq/L VBG O2 Sat (Nickie) (95-100) VBG Base Excess (-2.0-2.0) VBG Hemoglobin VBG Carboxyhemoglobin (0.0-6.9) % T HGB POC Potassium (3.5-5.1) Sodium 140 (137-145) mmol/L Potassium 3.7 (3.5-5.1) mmol/L Chloride 105 (98-107) mmol/L Carbon Dioxide 31 H (22-30) mmol/L Anion Gap 7.6 (5-15) MEQ/L BUN 11 (7-17) mg/dL Creatinine 0.75 (0.52-1.04) mg/dL Estimated GFR > 60.0 ML/MIN Glucose 96 (74-106) mg/dL Calcium 9.5 (8.4-10.2) mg/dL Magnesium (1.6-2.3) mg/dL Total Bilirubin 0.50 (0.2-1.3) mg/dL AST 23 (14-36) U/L ALT 15 (0-35) U/L Alkaline Phosphatase 113 (38-126) U/L Creatine Kinase 63 (30-135) U/L Troponin I (0.000-0.034) ng/mL NT-Pro-B Natriuret Pep 51.4 (0-450) pg/mL Serum Total Protein 7.6 (6.3-8.2) g/dL Albumin 4.5 (3.5-5.0) g/dL Urine HCG, Qual (Negative) Urine Opiates Level (NEGATIVE) Ur Methadone (NEGATIVE) Urine Barbiturates (NEGATIVE) Ur Phencyclidine (PCP) (NEGATIVE) Urine Amphetamine (NEGATIVE) U Benzodiazepine Level (NEGATIVE) Urine Cocaine (NEGATIVE) Urine Marijuana (THC) (NEGATIVE) - Progress Progress: re-examined, unchanged Air Movement: good Progress Note: 04/22/20 18:30 Still has chest pain and only did one sibling nitroglycerin has dropped her blood pressure. We will get a CTA of the chest due to her past history and EKG, school lunch monitor, and lab work being negative for etiologies of her chest pain 04/22/20 19:[address] Rodriguez, oncoming emergency department attending. Care transferred to Dr Rodriguez to follow-up results of CTA of the chest and repeat troponin as well as recheck patient's overall condition 04/22/20 19:03 Patient has a breakout of a rash, so Decadron/Pepcid/Benadryl given and patient returned from CT scan. Blood Culture(s) Obtained: No Antibiotics given: No Counseled pt/family regarding: lab results, diagnosis, need for follow-up, rad results - Departure Departure Disposition: Extended Care Facility Clinical Impression: Acute chest pain Hypertension Qualifiers: Hypertension type: essential hypertension Qualified Code(s): I10 - Essential (primary) hypertension Allergic reaction Qualifiers: Encounter type: initial encounter Qualified Code(s): T78.40XA - Allergy, unspecified, initial encounter Condition: Fair Critical Care Time: Yes Critical Care Time(excluding separately billable procedures): Critical 30-74 mins Referrals: ERICA CLARK [Primary Care Provider] -
[2020-04-22 17:10] LABS: Absolute Neutrophil Ct (ANC) 2.59 (1.4-6.9); BASOPHIL % 0.2 % (0.0-0.4); Basophil (Absolute #) 0.01 (0-0.4); Eosinophil % 7.2 % (0.00-5.0); Eosinophil (Absolute #) 0.39 (0-0.5); Hematocrit 38.7 % (35-47); Hemoglobin 12.6 gm/dl (12.0-16.0); Lymphocyte (Absolute #) 1.99 (1.0-4.6); Lymphocytes % 36.8 % (24.0-44.0); Mean Cell Volume 89.8 fl (78-100); Mean Corpuscular Hemoglobin 29.2 pg (26-32); Mean Corpuscular Hgb Concent. 32.6 g/dl (32-36); Mean Platelet Volume 10.8 fl (7.5-11.0); Monocyte (Absolute #) 0.43 (0.0-1.3); Monocytes % 7.9 % (0.0-12.0); Neutrophil % 47.9 % (36.0-66.0); Platelet Count 196 K/mm3 (150-450); Red Blood Count 4.31 M/mm3 (4.1-5.4); Red Cell Distribution Width 13.5 % (11.5-14.0); White Blood Count 5.4 K/mm3 (4.0-10.5)
[2020-04-22] MEDS ORDERED: Sodium Chloride 0.9% 1000 ML 1,000 ML ONE (17:12)
[2020-04-22 17:15] LABS: INR 1.05 (0.8-3.0); PROTIME 11.9 SECONDS (9.95-12.35)
[2020-04-22 17:18] LABS: PTT 35.8 SECONDS (25.3-37.0)
[2020-04-22 17:19] LABS: VBG BASE EXCESS 5.5 (-2.0-2.0); VBG HCO3- 31.1 meq/L (22-28); VBG HEMOGLOBIN 13.6; VBG O2 SATURATION 86.7 (95-100); VBG POTASSIUM 3.5 (3.5-5.1); VBG pH 7.42 (7.32-7.42)
[2020-04-22 17:20] LABS: VBG CARBOXYHEMOGLOBIN 7.7 % T HGB (0.0-6.9)
[2020-04-22 17:28] LABS: ALBUMIN 4.5 g/dL (3.5-5.0); ALKALINE PHOSPHATASE 113 U/L (38-126); ANION GAP 7.6 MEQ/L (5-15); BLOOD UREA NITROGEN 11 mg/dL (7-17); CHLORIDE 105 mmol/L (98-107); CK-Creatinine Phosphokinase 63 U/L (30-135); Calcium 9.5 mg/dL (8.4-10.2); Carbon Dioxide 31 mmol/L (22-30); Creatinine 1 0.75 mg/dL (0.52-1.04); EST GLOMERULAR FILTRATION RATE > 60.0 ML/MIN; Glucose 96 mg/dL (74-106); MAGNESIUM 2.4 mg/dL (1.6-2.3); NT PRO BNP 51.4 pg/mL (0-450); NT PRO BNP 51.5 pg/mL (0-450); Potassium 3.7 mmol/L (3.5-5.1); SGOT/AST 23 U/L (14-36); SGPT/ALT 15 U/L (0-35); SODIUM 140 mmol/L (137-145); Total Protein 7.6 g/dL (6.3-8.2)
[2020-04-22 18:48] LABS: Amphetamine,Urine NEGATIVE (NEGATIVE); Barbiturate,Urine NEGATIVE (NEGATIVE); Benzodiazepine,Urine NEGATIVE (NEGATIVE); Cocaine,Urine NEGATIVE (NEGATIVE); Methadone,Urine NEGATIVE (NEGATIVE); Opiate,Urine NEGATIVE (NEGATIVE); PCP,Urine NEGATIVE (NEGATIVE); THC,Urine NEGATIVE (NEGATIVE)
[2020-04-22] MEDS ORDERED: DECADRON 10MG INJ. IV ONE (19:00)
[2020-04-22] MEDS ORDERED: BENADRYL 50 MG/ML IV ONE (19:01)
[2020-04-22] MEDS ORDERED: Pepcid 20 MG VIAL IV ONE ×2 (19:01→19:07)
[2020-04-22] MEDS ORDERED: DECADRON 10MG INJ. ONE (19:07)
[2020-04-22] MEDS ORDERED: BENADRYL 50 MG/ML ONE (19:07)
[2020-04-22 21:05] VITALS: O2SAT 100
[2020-04-22 21:31] VITALS: BP 97/62; PULSE 60
--- NOTE | 2020-04-23 08:48 | XRAY ---
Indication: Chest pain. Comparison: December 08, 2019. Portable chest unchanged again demonstrating right hemidiaphragm elevation with minimal subsegmental atelectasis/scarring. No focal infiltrate, consolidation, or large effusion. Heart is not enlarged with stable left Port-A-Cath. Bony thorax intact. Impression: Continued nonacute chest with chronic features.
--- NOTE | 2020-04-23 08:48 | XRAY ---
Indication: Chest pain. History pulmonary embolus. Multiple contiguous axial images obtained through the chest using 80 cc Isovue 370 contrast and PE protocol. Comparison: July 06, 2018. There is good opacification of the pulmonary arteries to include the lobar and segmental branches. No pulmonary embolus. Heart is not enlarged with new left-sided Port-A-Cath. Mild increasing bilateral hilar nodes, not pathologically enlarged. No pathologic mediastinal lymphadenopathy. Lungs again demonstrate scattered subsegmental atelectasis/scarring bilaterally. No suspicious pulmonary mass, infiltrate, or effusion. Bony thorax intact. Limited upper abdomen unremarkable again with incidental cholecystectomy. Impression: Negative pulmonary embolus. No acute cardiopulmonary abnormalities.
== END 2020-04-22 21:44 | disposition home or self-care (01) ==
LOC: ED 16:27
DX: R07.89 Other chest pain (principal); I10 Essential (primary) hypertension; T78.40XA Allergy, unspecified, initial encounter; Z79.899 Other long term (current) drug therapy; Z79.891 Long term (current) use of opiate analgesic; I50.9 Heart failure, unspecified; I82.409 Acute embolism and thrombosis of unspecified deep veins of unspecified lower extremity; E11.9 Type 2 diabetes mellitus without complications; E03.9 Hypothyroidism, unspecified
CPT/HCPCS: 36000; 36415; 71045; 71260; 80053; 80307; 82550; 82805; 83735; 83880; 84484; 84703; 85025; 85610; 85730; 93005; 93041; 96360; 96374; 96375; 99285; 99291; J1100; J1200; A9270-GY

== ENCOUNTER 2020-09-10 21:57 | Emergency (ER) | payer OTHER ==
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
[2020-09-10] MEDS ORDERED: Zofran 4 MG/2 ML VIAL IV ONE (22:34)
[2020-09-10] MEDS ORDERED: Sodium Chloride 0.9% 1000 ML 1,000 ML IV STA (22:34)
[2020-09-10] MEDS ORDERED: PROTONIX 40 MG IV IV ONE ×2 (22:34→22:45)
[2020-09-10] MEDS ORDERED: Sodium Chloride 0.9% 1000 ML 1,000 ML ONE (22:45)
[2020-09-10] MEDS ORDERED: Zofran 4 MG/2 ML VIAL ONE (22:45)
[2020-09-11 00:16] LABS: BASOPHIL % 0.1 % (0.0-0.4); Basophil (Absolute #) 0.01 (0-0.4); Eosinophil % 2.6 % (0.00-5.0); Hematocrit 39.9 % (35-47); Hemoglobin 12.7 gm/dl (12.0-16.0); Lymphocyte (Absolute #) 2.33 (1.0-4.6); Lymphocytes % 29.8 % (24.0-44.0); Mean Cell Volume 88.5 fl (78-100); Mean Corpuscular Hemoglobin 28.2 pg (26-32); Mean Corpuscular Hgb Concent. 31.8 g/dl (32-36); Mean Platelet Volume 10.5 fl (7.5-11.0); Monocyte (Absolute #) 0.58 (0.0-1.3); Monocytes % 7.4 % (0.0-12.0); Neutrophil % 60.1 % (36.0-66.0); Platelet Count 206 K/mm3 (150-450); Red Blood Count 4.51 M/mm3 (4.1-5.4); Red Cell Distribution Width 13.4 % (11.5-14.0); White Blood Count 7.8 K/mm3 (4.0-10.5)
[2020-09-11 00:27] LABS: ALBUMIN 4.7 g/dL (3.5-5.0); ALKALINE PHOSPHATASE 127 U/L (38-126); AMYLASE 40 U/L (30-110); BLOOD UREA NITROGEN 8 mg/dL (7-17); CHLORIDE 102 mmol/L (98-107); Calcium 9.7 mg/dL (8.4-10.2); Carbon Dioxide 30 mmol/L (22-30); Creatinine 1 0.77 mg/dL (0.52-1.04); EST GLOMERULAR FILTRATION RATE > 60.0 ML/MIN; Glucose 118 mg/dL (74-106); LIPASE 47 U/L (23-300); Potassium 3.7 mmol/L (3.5-5.1); SGOT/AST 26 U/L (14-36); SGPT/ALT 20 U/L (0-35); SODIUM 140 mmol/L (137-145); Total Protein 7.7 g/dL (6.3-8.2)
[2020-09-11 00:29] LABS: Appearance CLEAR (CLEAR); Bilirubin NEGATIVE (NEGATIVE); Blood NEGATIVE Ery/ul (0-5); Glucose NEGATIVE (NEGATIVE); Ketones NEGATIVE (NEGATIVE); Leukocyte Esterase NEGATIVE (NEGATIVE); Nitrite NEGATIVE (NEGATIVE); Protein,Urine Dip NEGATIVE (Negative); Urobilinogen NEGATIVE mg/dL (0-1); WBC 0-2 /HPF (0-5)
[2020-09-11] MEDS ORDERED: Zofran 4 MG/2 ML VIAL IV ONE (00:40)
[2020-09-11] MEDS ORDERED: Zofran 4 MG/2 ML VIAL ONE (01:07)
[2020-09-11 01:15] VITALS: BP 132/75; PULSE 56; O2SAT 98
== END 2020-09-11 01:25 | disposition home or self-care (01) ==
LOC: ED 21:57
DX: R11.10 Vomiting, unspecified (principal)
CPT/HCPCS: 36000; 36415; 80053; 81001; 82150; 83605; 83690; 85025; 96360; 96374; 96375; 96376; 99284; J2405

== ENCOUNTER 2020-09-13 22:03 | Emergency (ER) | payer OTHER ==
[2020-09-13] MEDS ORDERED: TORAdol 30 mg Injection IM ONE (22:26)
[2020-09-13] MEDS ORDERED: TORAdol 30 mg Injection ONE (22:27)
[2020-09-13] MEDS ORDERED: BACIGUENT PACKET ONE (22:27)
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
[2020-09-13] MEDS ORDERED: BACIGUENT PACKET TP ONE (22:50)
[2020-09-13] MEDS ORDERED: HYDROCODONE-ACETAMIN 10-325 MG PO STA (22:51)
[2020-09-13] MEDS ORDERED: NORCO 5/325 MG PO ONE (22:52)
[2020-09-13] MEDS ORDERED: NORCO 5/325 MG ONE (22:54)
[2020-09-13 23:25] VITALS: PULSE 70
[2020-09-13 23:27] VITALS: BP 151/94
[2020-09-14 00:14] VITALS: O2SAT 99
== END 2020-09-13 23:27 | disposition home or self-care (01) ==
LOC: ED 22:03
DX: T23.202A Burn of second degree of left hand, unspecified site, initial encounter (principal); X10.2XXA Contact with fats and cooking oils, initial encounter; Y93.G3 Activity, cooking and baking; Y92.89 Other specified places as the place of occurrence of the external cause
CPT/HCPCS: 96372; 99284; J1885; A9270-GY

== ENCOUNTER 2020-11-28 17:36 | Emergency (ER) | payer OTHER ==
[2020-11-28] MEDS ORDERED: SUBLIMAZE 100 MCG/2 ML IM ONE (17:57)
[2020-11-28] MEDS ORDERED: SUBLIMAZE 100 MCG/2 ML ONE (18:09)
--- NOTE | 2020-11-28 19:18 | ERPHSYRPT ---
- History of Present Illness Time Seen by Provider: 11/28/20 17:55 Source: patient Exam Limitations: no limitations Patient Subjective Stated Complaint: Pt states that she was sitting in a chair and went to raise her right leg up and she heard a pop in her right hip, later while helping grandpa up she heard it grinding in her hip, today she went to cross her legs and her hip popped again Triage Nursing Assessment: Pt brought to the ER by her , vitals wnl, rates pain 10/10, pain with walking, states that her leg is swollen but this nurse does not see it, pulses normal, doesn't appear to be in any distress Physician History: Patient is a 44-year-old white female frequent visitor to the ER who presents with a complaint of pain starting in the left or excuse me right lower lumbar area radiating into the hip and associated with a popping noise when she moves it and grinding when she moves it she says the hip is swollen into the back. This occurred when she was taking care of her father. Method of Injury: unknown Occurred: this morning Quality: intermittent, throbbing Severity of Pain-Max: moderate Severity of Pain-Current: moderate Lower Extremities Pain: hip: right (Crepitus with movement) Allergies/Adverse Reactions: aspirin Allergy (Mild, Verified 11/28/20 17:50) Nausea and Vomiting codeine [Codeine] Allergy (Mild, Verified 11/28/20 17:50) Itching Penicillins Allergy (Mild, Verified 11/28/20 17:50) Nausea and Vomiting promethazine HCl [From Phenergan] Allergy (Mild, Verified 11/28/20 17:50) tremors clindamycin Adverse Reaction (Intermediate, Verified 11/28/20 17:50) Hives fluoxetine HCl [From Prozac] Adverse Reaction (Intermediate, Verified 11/28/20 17:50) confusion , "jumped out of a moving truck" sulfamethoxazole [From Bactrim] Adverse Reaction (Intermediate, Verified 11/28/20 17:50) Swelling steroid from breathing treatment Allergy (Mild, Uncoded 11/28/20 17:50) Blisters Home Medications: Levothyroxine Sodium 100 Mcg [Synthroid 100 Mcg] 100 mcg PO QAM 09/27/14 [History] Simvastatin [Zocor] 20 mg PO HS 09/27/14 [History] Clopidogrel Bisulfate 75 mg [PLAVIX 75 MG Tablet] 75 mg PO DAILY 04/05/15 [History] Lamotrigine 100 mg [lamICTAL 100MG TABLET] 200 mg PO BID 09/27/15 [History] Diazepam 5 mg [Valium 5 MG] 5 mg PO TIDPRN 02/14/16 [History] Albuterol Sulfate [Ventolin Hfa] 2 puff IH QID 12/21/16 [History] Loratadine 10 mg [Claritin 10 mg] 10 mg PO BID 07/30/17 [History] Potassium Chloride [K-Dur] 20 meq PO HS 08/03/17 [History] Magnesium Oxide 400 mg PO BID 09/10/17 [History] Cyanocobalamin/Cobamamide [B-12 5,000 Mcg Sublingual Tab] 5,000 mcg SL QID 01/21/19 [History] Ergocalciferol (Vitamin D2) [Vitamin D2] 50,000 units PO WEEKLY 01/21/19 [History] Fluticasone Propionate [Flovent 110 Mcg MDI] 1 puff IH BID 01/21/19 [History] Folic Acid 1 mg PO BID 01/21/19 [History] Propranolol HCl [Propranolol HCl ER] 80 mg PO HS 01/21/19 [History] Fluticasone Propionate [Flonase NASAL] 1 spray NS DAILY 07/11/19 [History] Diltiazem HCl [Cartia Xt] 180 mg PO DAILY 04/22/20 [History] Hydrocodone/Acetaminophen [Vicodin Hp 10-300 mg Tablet] 1 each PO DAILY PRN 04/22/20 [History] Hydroxyzine HCl 25 mg [Atarax 25 mg] 25 mg PO DAILY 04/22/20 [History] Hx Tetanus, Diphtheria Vaccination/Date Given: Yes Hx Influenza Vaccination/Date Given: Yes Hx Pneumococcal Vaccination/Date Given: Yes Travel Risk - International Travel Have you traveled outside of the country in past 3 weeks: No - Coronavirus Screening Are you exhibiting any of the following symptoms?: No Close contact with a COVID-19 positive Pt in past 14-21 Days: No - Vaccine Status Have you recieved a Covid-19 vaccination: No - Review of Systems Constitutional: No Fever, No Chills Eyes: No Symptoms Ears, Nose, & Throat: No Symptoms Respiratory: No Cough, No Dyspnea Cardiac: No Chest Pain, No Edema, No Syncope Abdominal/Gastrointestinal: No Abdominal Pain, No Nausea, No Vomiting, No Diarrhea Genitourinary Symptoms: No Dysuria Musculoskeletal: No Back Pain, No Neck Pain Skin: No Rash Neurological: No Dizziness, No Focal Weakness, No Sensory Changes Psychological: No Symptoms Endocrine: No Symptoms All Other Systems: Reviewed and Negative - Past Medical History Pertinent Past Medical History: Yes Neurological History: Epilepsy, Seizures, Stroke ENT History: No Pertinent History Cardiac History: Arrhythmia, Congestive Heart Failure, Deep Vein Thrombosis, Hypertension Respiratory History: CHF, Pulmonary Embolism, Other Endocrine Medical History: Diabetes Type II, Hypothyroidism Musculoskeletal History: Other GI Medical History: GERD, Hernia, Ulcer History: No Pertinent History Psycho-Social History: Anxiety, Bipolar, Depression, Panic Disorder Female Reproductive Disorders: Endometriosis Other Medical History: Mitral valve prolapse with regurgitation, pt wears 4 L N/C at all times - Past Surgical History Past Surgical History: Yes Neuro Surgical History: No Pertinent History Cardiac: Cardiac Catheterization Respiratory: No Pertinent History Gastrointestinal: Appendectomy, Cholecystectomy, Hernia Repair Genitourinary: No Pertinent History Musculoskeletal: Joint Replacement, Orthopedic Surgery Female Surgical History: Hysterectomy, Dilation & Curettage Other Surgical History: torn miniscus and implant-RT KNEE" partial scope replacement", oral surgery, melanoma removed for face twice, port placement twice with one removal. - Social History Smoking Status: Former smoker How long have you smoked: 10 years Exposure to second hand smoke: Yes Alcohol Use: None Drug Use: none Patient Lives Alone: No Significant Family History: no pertinent family hx, heart disease, diabetes, hypertension - Female History Hx Now: No - Nursing Vital Signs Nursing Vital Signs: Initial Vital Signs Temperature 98.2 F 11/28/20 17:42 Pulse Rate 79 11/28/20 17:42 Blood Pressure 113/69 11/28/20 17:42 O2 Sat by Pulse Oximetry 98 11/28/20 17:42 Pain Scale Pain Intensity 10 - Physical Exam General Appearance: alert Eyes, Ears, Nose, Throat Exam: moist mucous membranes Neck Exam: non-tender, supple Cardiovascular/Respiratory Exam: chest non-tender, normal breath sounds, regular rate/rhythm, no respiratory distress Gastrointestinal/Abdominal Exam: non-tender, guarding Back Exam: vertebral tenderness (The area of her right SI joint) Hips Exam: right: no evidence of injury, bone tenderness, limited range of motion, pain, soft tissue tenderness, swelling Legs Exam: bilateral leg: non-tender, normal inspection, normal range of motion, no evidence of injury Knees Exam: bilateral knee: non-tender, normal inspection, normal range of motion, no evidence of injury Ankle Exam: bilateral ankle: non-tender, normal inspection, normal range of motion, no evidence of injury Foot Exam: bilateral foot: non-tender, normal inspection, normal range of mo tion, no evidence of injury Neuro/Tendon Exam: normal sensation, normal motor functions Mental Status Exam: alert, oriented x 3, cooperative Skin Exam: normal color, warm, dry SpO2 Interpretation: normal SpO2: 98 O2 Delivery: Room Air - CT Exams Lumbar Spine CT Interpretation: Tele-radiologist Report, Other (The scan of the lumbar area and the right hip show no fracture dislocations or bony abnormalities.) Ordered Tests: Active Orders 24 hr Category Date Time Status LOWER EXTREMITY WO CONTRAST [CT] Stat Exams 11/28/20 18:19 Taken LUMBAR SPINE W/O [CT] Stat Exams 11/28/20 18:16 Taken Medication Summary Discontinued Medications Generic Name Dose Route Start Last Admin Trade Name Gilmarq PRN Reason Stop Dose Admin Fentanyl Citrate 75 mcg 11/28/20 17:57 11/28/20 18:13 Sublimaze 100 Mcg/2 Ml IM 11/28/20 17:58 75 mcg STAT ONE Administration Fentanyl Citrate Confirm 11/28/20 18:09 Sublimaze 100 Mcg/2 Ml Administered 11/28/20 18:10 Dose 100 mcg .ROUTE .STK-MED ONE - Progress Progress: unchanged - Departure Departure Disposition: Home Clinical Impression: Bursitis of right hip Condition: Stable Critical Care Time: No Referrals: ERICA CLARK [Primary Care Provider] - Instructions: Hip Bursitis (DC) Prescriptions: Celecoxib [Celebrex] 200 mg PO BID 10 Days #20 capsule Tramadol HCl 100 mg PO Q6H 3 Days #12 tablet
[2020-11-28 19:22] VITALS: BP 87/62; PULSE 67; O2SAT 97
--- NOTE | 2020-11-28 19:41 | XRAY ---
Indication: Low-back and right hip pain. Multiple contiguous axial images obtained through the lumbar spine. Sagittal and coronal reformatted images obtained. Comparison: May 11, 2020. Axial images again negative for acute fracture, large disc herniation, or spinal canal stenosis. Facets are symmetric. Sagittal and coronal reformatted images again demonstrates normal alignment with vertebral body heights/disc spaces are maintained. No compression fracture, subluxation, or suspicious bone lesions. Visualized noncontrasted soft tissues unremarkable. Impression: Continued negative CT lumbar spine. Comment: Preliminary interpretation was made by [facility]. No critical discrepancy.
--- NOTE | 2020-11-28 19:43 | XRAY ---
Indication: Low-back and right hip pain. Multiple contiguous axial images obtained through the right hip. Sagittal and coronal reformatted images obtained. Comparison: CT abdomen/pelvis July 11, 2019. Right hip articulation intact without abnormal large effusion. Axial images demonstrate stable small femur head bone island. No acute fracture, suspicious bony lesions, or osseous destructive process. Visualized noncontrasted soft tissues again demonstrates small fatty inguinal hernia. Impression: Stable small femur head bone island and small fatty inguinal hernia. Remaining CT right hip negative. Comment: Preliminary interpretation was made by [facility]. No critical discrepancy.
== END 2020-11-28 19:29 | disposition home or self-care (01) ==
LOC: ED 17:36
DX: M71.551 Other bursitis, not elsewhere classified, right hip (principal); I50.9 Heart failure, unspecified; I10 Essential (primary) hypertension; E11.9 Type 2 diabetes mellitus without complications; E03.9 Hypothyroidism, unspecified; Z79.899 Other long term (current) drug therapy; Z79.891 Long term (current) use of opiate analgesic
CPT/HCPCS: 72131; 73700; 96372; 99284; J3010

== ENCOUNTER 2020-11-30 15:27 | Observation (INO) | payer OTHER ==
[2020-11-30] MEDS ORDERED: Hydromorphone 1 mg/ml Injection IV PRN (16:08)
[2020-11-30] MEDS ORDERED: Zofran 4 MG/2 ML VIAL IV PRN (16:08)
[2020-11-30] MEDS ORDERED: Sodium Chloride 0.9% 10 ML FLUSH Syringe IV PRN (16:15)
[2020-11-30] MEDS: Sodium Chloride 0.9% 10 ML FLUSH Syringe IV SCH (17:59)
[2020-11-30 18:26] LABS: Absolute Neutrophil Ct (ANC) 4.08 (1.4-6.9); BASOPHIL % 0.1 % (0.0-0.4); Basophil (Absolute #) 0.01 (0-0.4); Eosinophil % 5.6 % (0.00-5.0); Eosinophil (Absolute #) 0.38 (0-0.5); Hematocrit 38.7 % (35-47); Hemoglobin 12.3 gm/dl (12.0-16.0); Lymphocyte (Absolute #) 1.81 (1.0-4.6); Lymphocytes % 26.5 % (24.0-44.0); Mean Cell Volume 89.4 fl (78-100); Mean Corpuscular Hemoglobin 28.4 pg (26-32); Mean Corpuscular Hgb Concent. 31.8 g/dl (32-36); Monocyte (Absolute #) 0.54 (0.0-1.3); Monocytes % 7.9 % (0.0-12.0); Neutrophil % 59.9 % (36.0-66.0); Platelet Count 188 K/mm3 (150-450); Red Blood Count 4.33 M/mm3 (4.1-5.4); White Blood Count 6.8 K/mm3 (4.0-10.5)
[2020-11-30 18:46] LABS: ALBUMIN 4.3 g/dL (3.5-5.0); ALKALINE PHOSPHATASE 114 U/L (38-126); BLOOD UREA NITROGEN 14 mg/dL (7-17); CHLORIDE 103 mmol/L (98-107); Calcium 9.4 mg/dL (8.4-10.2); Carbon Dioxide 30 mmol/L (22-30); Creatinine 1 0.88 mg/dL (0.52-1.04); EST GLOMERULAR FILTRATION RATE > 60.0 ML/MIN; Glucose 80 mg/dL (74-106); Potassium 3.7 mmol/L (3.5-5.1); SGOT/AST 24 U/L (14-36); SGPT/ALT 15 U/L (0-35); SODIUM 140 mmol/L (137-145); Total Protein 7.1 g/dL (6.3-8.2)
[2020-11-30] MEDS ORDERED: DUONEB 0.5-3 MG/3 ml Neb IH PRN (20:18)
[2020-11-30] MEDS ORDERED: Hydromorphone 1 mg/ml Injection IV ONE (20:44)
[2020-11-30] MEDS ORDERED: Sodium Chloride 0.9% 1000 ML 1,000 ML ONE (20:53)
[2020-11-30] MEDS: DILAUDID 1 MG/1ML PCA IV PRN (21:18)
[2020-11-30] MEDS ORDERED: BENADRYL 25 MG CAPSULE PO PRN (21:50)
[2020-11-30] MEDS ORDERED: LIORESAL 10 MG PO ONE (22:00)
[2020-11-30] MEDS ORDERED: MAG-OX 400 PO ONE (22:00)
[2020-11-30] MEDS ORDERED: Carafate 1 GM PO ONE (22:00)
[2020-11-30] MEDS ORDERED: Inderal 20 MG PO ONE (22:00)
[2020-11-30] MEDS ORDERED: CLARITIN 10 MG PO ONE (22:00)
[2020-11-30] MEDS ORDERED: Neurontin 400 MG PO ONE (22:00)
[2020-11-30] MEDS ORDERED: ZOCOR 20MG PO ONE (22:00)
[2020-11-30] MEDS ORDERED: Valium 5 MG PO ONE (22:00)
[2020-11-30] MEDS ORDERED: Klor Con 10 MEQ PO ONE (22:00)
[2020-11-30] MEDS ORDERED: BENADRYL 25 MG CAPSULE PO ONE (22:00)
[2020-12-01 02:47] LABS: Appearance CLEAR (CLEAR); Bilirubin NEGATIVE (NEGATIVE); Blood NEGATIVE Ery/ul (0-5); Epithelial Cells RARE /HPF (FEW); Glucose NEGATIVE (NEGATIVE); Ketones NEGATIVE (NEGATIVE); Leukocyte Esterase NEGATIVE (NEGATIVE); Mucus SLIGHT /HPF (NEGATIVE); Nitrite NEGATIVE (NEGATIVE); Protein,Urine Dip NEGATIVE (Negative); Specific Gravity 1.011 (1.005-1.025); Urobilinogen NEGATIVE mg/dL (0-1); WBC 0-2 /HPF (0-5)
[2020-12-01] MEDS: Sodium Chloride 0.9% 10 ML FLUSH Syringe IV SCH (06:56)
[2020-12-01] MEDS ORDERED: PATIENT OWN MEDICATION IH SCH (07:00)
[2020-12-01] MEDS: PATIENT OWN MEDICATION IH SCH ×3 (07:04→18:44)
[2020-12-01] MEDS: VENTOLIN COMMON CANISTER IH SCH ×4 (07:04→18:44)
[2020-12-01] MEDS: DILAUDID 1 MG/1ML PCA IV PRN (07:29)
--- NOTE | 2020-12-01 08:19 | PCM.NOTE ---
Date and Time: 12/01/20815 Subjective Assessment: Pt is feeling better today, pain is 8/10 with pain meds. Still hurting more when she gets up, but has been up to the bathroom. To get MRI this morning. - Review of Systems Constitutional: No Fever Abdominal/Gastrointestinal: No Vomiting Objective Exam General Appearance: no apparent distress, alert Neurologic Exam: oriented x 3, cooperative Skin Exam: normal color, warm, dry, No rash Eye Exam: eyes nml inspection Ears, Nose, Throat Exam: moist mucous membranes Neck Exam: normal inspection Respiratory Exam: normal breath sounds, lungs clear, No crackles/rales, No rhonchi, No wheezing Cardiovascular Exam: regular rate/rhythm, normal heart sounds, No murmur Gastrointestinal/Abdomen Exam: soft, normal bowel sounds, No tenderness, No distention, No mass, No guarding, No rebound Extremity Exam: normal inspection, No pedal edema, No swelling Back Exam: normal inspection, No rash OBJECTIVE DATA Vital Signs: Vital Signs - 24 hr Temp Pulse Resp BP Pulse Ox 12/01/20 07:36 97.3 F 55 L 16 108/58 99 12/01/20 07:29 97 12/01/20 07:07 50 L 16 99 12/01/20 04:00 97.7 F 51 L 17 113/57 100 12/01/20 01:18 100 12/01/20 00:00 96.9 F 50 L 18 100/54 100 11/30/20 21:18 97 11/30/20 20:15 64 20 97 11/30/20 20:00 98.2 F 69 19 114/56 97 11/30/20 19:58 98.2 F 69 19 114/56 97 11/30/20 17:45 98.0 F 75 28 H 112/55 98 Pain Assessment - Last Documented Pain Intensity 3 Pain Scale Used 0-10 Pain Scale Intake and Output: Intake & Output 11/28/20 11/29/20 11/30/20 12/01/20 11:59 11:59 11:59 11:59 Intake Total 3480 Output Total 900 Balance 2580 Weight 99.6 kg Lab Results: Lab Results-Last 24 Hours 11/30/20 11/30/20 11/30/20 Range/Units 15:40 17:55 18:15 WBC (4.0-10.5) K/mm3 RBC (4.1-5.4) M/mm3 Hgb (12.0-16.0) gm/dl Hct (35-47) % MCV (78-100) fl MCH (26-32) pg MCHC (32-36) g/dl RDW (11.5-14.0) % Plt Count (150-450) K/mm3 MPV (7.5-11.0) fl Gran % (36.0-66.0) % Eos # (Auto) (0-0.5) Absolute Lymphs (auto) (1.0-4.6) Absolute Monos (auto) (0.0-1.3) Lymphocytes % (24.0-44.0) % Monocytes % (0.0-12.0) % Eosinophils % (0.00-5.0) % Basophils % (0.0-0.4) % Absolute Granulocytes (1.4-6.9) Basophils # (0-0.4) Sodium 140 (137-145) mmol/L Potassium 3.7 (3.5-5.1) mmol/L Chloride 103 (98-107) mmol/L Carbon Dioxide 30 (22-30) mmol/L Anion Gap 11.0 (5-15) MEQ/L BUN 14 (7-17) mg/dL Creatinine 0.88 (0.52-1.04) mg/dL Estimated GFR > 60.0 ML/MIN Glucose 80 (74-106) mg/dL POC Glucometer 80 (74 to 106) mg/dL Calcium 9.4 (8.4-10.2) mg/dL Total Bilirubin 0.30 (0.2-1.3) mg/dL AST 24 (14-36) U/L ALT 15 (0-35) U/L Alkaline Phosphatase 114 (38-126) U/L Serum Total Protein 7.1 (6.3-8.2) g/dL Albumin 4.3 (3.5-5.0) g/dL Urine Color (YELLOW) Urine Appearance (CLEAR) Urine pH (5-6) Ur Specific [place] (1.005-1.025) Urine Protein (Negative) Urine Ketones (NEGATIVE) Urine Blood (0-5) Laurent/ul Urine Nitrite (NEGATIVE) Urine Bilirubin (NEGATIVE) Urine Urobilinogen (0-1) mg/dL Ur Leukocyte Esterase (NEGATIVE) Urine WBC (Auto) (0-5) /HPF Urine RBC (Auto) (0-2) /HPF U Epithel Cells (Auto) (FEW) /HPF Urine Bacteria (Auto) (NEGATIVE) /HPF Urine Mucus (Auto) (NEGATIVE) /HPF Urine Culture Reflexed (NO) Urine Glucose (NEGATIVE) mg/dL SARS-CoV-2 (PCR) NEGATIVE (NEGATIVE) 11/30/20 11/30/20 12/01/20 Range/Units 18:20 20:29 02:45 WBC 6.8 (4.0-10.5) K/mm3 RBC 4.33 (4.1-5.4) M/mm3 Hgb 12.3 (12.0-16.0) gm/dl Hct 38.7 (35-47) % MCV 89.4 (78-100) fl MCH 28.4 (26-32) pg MCHC 31.8 L (32-36) g/dl RDW 14.0 (11.5-14.0) % Plt Count 188 (150-450) K/mm3 MPV 11.0 (7.5-11.0) fl Gran % 59.9 (36.0-66.0) % Eos # (Auto) 0.38 (0-0.5) Absolute Lymphs (auto) 1.81 (1.0-4.6) Absolute Monos (auto) 0.54 (0.0-1.3) Lymphocytes % 26.5 (24.0-44.0) % Monocytes % 7.9 (0.0-12.0) % Eosinophils % 5.6 H (0.00-5.0) % Basophils % 0.1 (0.0-0.4) % Absolute Granulocytes 4.08 (1.4-6.9) Basophils # 0.01 (0-0.4) Sodium (137-145) mmol/L Potassium (3.5-5.1) mmol/L Chloride (98-107) mmol/L Carbon Dioxide (22-30) mmol/L Anion Gap (5-15) MEQ/L BUN (7-17) mg/dL Creatinine (0.52-1.04) mg/dL Estimated GFR ML/MIN Glucose (74-106) mg/dL POC Glucometer 190 H (74 to 106) mg/dL Calcium (8.4-10.2) mg/dL Total Bilirubin (0.2-1.3) mg/dL AST (14-36) U/L ALT (0-35) U/L Alkaline Phosphatase (38-126) U/L Serum Total Protein (6.3-8.2) g/dL Albumin (3.5-5.0) g/dL Urine Color YELLOW (YELLOW) Urine Appearance CLEAR (CLEAR) Urine pH 6.0 (5-6) Ur Specific [place] 1.011 (1.005-1.025) Urine Protein NEGATIVE (Negative) Urine Ketones NEGATIVE (NEGATIVE) Urine Blood NEGATIVE (0-5) Laurent/ul Urine Nitrite NEGATIVE (NEGATIVE) Urine Bilirubin NEGATIVE (NEGATIVE) Urine Urobilinogen NEGATIVE (0-1) mg/dL Ur Leukocyte Esterase NEGATIVE (NEGATIVE) Urine WBC (Auto) 0-2 (0-5) /HPF Urine RBC (Auto) NONE (0-2) /HPF U Epithel Cells (Auto) RARE (FEW) /HPF Urine Bacteria (Auto) NONE (NEGATIVE) /HPF Urine Mucus (Auto) SLIGHT (NEGATIVE) /HPF Urine Culture Reflexed NO (NO) Urine Glucose NEGATIVE (NEGATIVE) mg/dL SARS-CoV-2 (PCR) (NEGATIVE) 12/01/20 Range/Units 07:14 WBC (4.0-10.5) K/mm3 RBC (4.1-5.4) M/mm3 Hgb (12.0-16.0) gm/dl Hct (35-47) % MCV (78-100) fl MCH (26-32) pg MCHC (32-36) g/dl RDW (11.5-14.0) % Plt Count (150-450) K/mm3 MPV (7.5-11.0) fl Gran % (36.0-66.0) % Eos # (Auto) (0-0.5) Absolute Lymphs (auto) (1.0-4.6) Absolute Monos (auto) (0.0-1.3) Lymphocytes % (24.0-44.0) % Monocytes % (0.0-12.0) % Eosinophils % (0.00-5.0) % Basophils % (0.0-0.4) % Absolute Granulocytes (1.4-6.9) Basophils # (0-0.4) Sodium (137-145) mmol/L Potassium (3.5-5.1) mmol/L Chloride (98-107) mmol/L Carbon Dioxide (22-30) mmol/L Anion Gap (5-15) MEQ/L BUN (7-17) mg/dL Creatinine (0.52-1.04) mg/dL Estimated GFR ML/MIN Glucose (74-106) mg/dL POC Glucometer 108 H (74 to 106) mg/dL Calcium (8.4-10.2) mg/dL Total Bilirubin (0.2-1.3) mg/dL AST (14-36) U/L ALT (0-35) U/L Alkaline Phosphatase (38-126) U/L Serum Total Protein (6.3-8.2) g/dL Albumin (3.5-5.0) g/dL Urine Color (YELLOW) Urine Appearance (CLEAR) Urine pH (5-6) Ur Specific [place] (1.005-1.025) Urine Protein (Negative) Urine Ketones (NEGATIVE) Urine Blood (0-5) Laurent/ul Urine Nitrite (NEGATIVE) Urine Bilirubin (NEGATIVE) Urine Urobilinogen (0-1) mg/dL Ur Leukocyte Esterase (NEGATIVE) Urine WBC (Auto) (0-5) /HPF Urine RBC (Auto) (0-2) /HPF U Epithel Cells (Auto) (FEW) /HPF Urine Bacteria (Auto) (NEGATIVE) /HPF Urine Mucus (Auto) (NEGATIVE) /HPF Urine Culture Reflexed (NO) Urine Glucose (NEGATIVE) mg/dL SARS-CoV-2 (PCR) (NEGATIVE) Radiology Exams: Radiology Procedures Category Date Time Status HIP UNI (2V) INCL PEL IF DONE Routine Exams 11/30/20 17:30 Taken LUMBAR LIMITED (2 OR 3 VIEWS) Routine Exams 11/30/20 17:30 Taken MRI L-SPINE WITH CONTRAST [MRI] Routine Exams 12/01/20 08:00 Ordered MRI LOWER EXT JOINT W/CONTRAST [MRI] Routine Exams 12/01/20 08:00 Ordered MRI T-SPINE WITH CONTRAST [MRI] Routine Exams 12/01/20 08:00 Ordered THORACIC SPINE (AP,LAT,SWIMM) Routine Exams 11/30/20 17:30 Taken Assessment/Plan (1) Thoracic back pain Current Visit: Yes Status: Acute Qualifiers: Chronicity: acute Back pain laterality: midline Qualified Code(s): M54.6 - Pain in thoracic spine Assessment & Plan: MRIs to be done this morning. If neg, will consult PT. Code(s): M54.6 - PAIN IN THORACIC SPINE (2) Lumbar back pain Current Visit: Yes Status: Acute Code(s): M54.5 - LOW BACK PAIN (3) Right hip pain Current Visit: Yes Status: Acute Code(s): M25.551 - PAIN IN RIGHT HIP
--- NOTE | 2020-12-01 08:50 | XRAY ---
Indication: Right hip and back pain. Comparison: None. There is CT chest April 23, 2020. AP/lateral thoracic spine demonstrates 12 rib-bearing segments again with very minimal dextroscoliosis and left Port-A-Cath. Vertebral body heights/disc spaces maintained. No new/acute abnormalities.
--- NOTE | 2020-12-01 08:52 | XRAY ---
Indication: Right hip and back pain. Comparison: CT right hip November 28, 2020. 2 view right hip obtained. Again no bony, articular, or soft tissue abnormalities.
--- NOTE | 2020-12-01 08:52 | XRAY ---
Indication: Right hip and back pain. Comparison: CT lumbar spine November 28, 2020. 3 view lumbar spine again demonstrates normal alignment with vertebral body heights/disc spaces maintained. No new/acute bony, articular, or soft tissue abnormalities.
[2020-12-01] MEDS ORDERED: BENADRYL 25 MG CAPSULE PO PRN (14:58)
[2020-12-01] MEDS ORDERED: NON-FORMULARY ITEM (Ondansetron Hcl [Zofran] 4 MG) PO PRN (14:58)
--- NOTE | 2020-12-01 15:08 | XRAY ---
Indication: Right hip pain radiating up back. Patient states "Hip popped" 4 days ago. Axial and coronal MRI both hips performed using pre and post T1, T2, and STIR sequences. Sagittal post T1 and T2 images obtained through the right hip. 15cc Dotarem used. Comparison: None Hips are bilaterally symmetric without abnormal effusion. No acute fracture, suspicious bony lesions, bony remodeling, or evidence for avascular necrosis. Surrounding soft tissues including major arteries/veins unremarkable. No pathologic lymphadenopathy. Visualized pelvic contents unremarkable. Following gadolinium, there is no abnormal soft tissue or bony enhancement. Impression: Negative MRI right hip with contrast exam.
[2020-12-01] MEDS ORDERED: ZOFRAN ODT 4 MG PO PRN (15:17)
[2020-12-01] MEDS ORDERED: MEDICATION INTERVENTION MC SCH (15:30)
[2020-12-01] MEDS: Pepcid 20 MG PO SCH (15:56)
[2020-12-01] MEDS: PLAVIX 75 MG Tablet PO SCH (15:56)
[2020-12-01] MEDS: Cardizem CD 180 MG PO SCH ×2 (15:56→15:58)
[2020-12-01] MEDS: CLARITIN 10 MG PO SCH (15:56)
[2020-12-01] MEDS: BUMEX 1 MG PO SCH (15:56)
[2020-12-01] MEDS: LIORESAL 10 MG PO SCH ×2 (15:56→22:42)
[2020-12-01] MEDS: Valium 5 MG PO SCH ×2 (15:56→22:42)
[2020-12-01] MEDS: SYNTHROID 100 MCG PO SCH (15:56)
[2020-12-01] MEDS ORDERED: NON-FORMULARY ITEM (Gabapentin [Gabapentin] 800 MG) PO SCH (17:00)
[2020-12-01] MEDS: Neurontin 400 MG PO SCH ×2 (18:26→22:42)
[2020-12-01] MEDS ORDERED: NON-FORMULARY ITEM (Potassium Chloride [K-Dur] 20 MEQ) PO SCH (22:00)
[2020-12-01] MEDS ORDERED: NON-FORMULARY ITEM (Propranolol Hcl [Propranolol Hcl Er] 80 MG) PO SCH (22:00)
[2020-12-01] MEDS: Klor Con 10 MEQ PO SCH (22:42)
[2020-12-01] MEDS: MAG-OX 400 PO SCH (22:42)
[2020-12-01] MEDS: ZOCOR 20MG PO SCH (22:43)
[2020-12-02] MEDS ORDERED: Sodium Chloride 0.9% 1000 ML 1,000 ML ONE (06:36)
[2020-12-02] MEDS ORDERED: Sodium Chloride 0.9% 1000 ML 1,000 ML IV SCH (06:45)
[2020-12-02] MEDS: PATIENT OWN MEDICATION IH SCH ×2 (06:56→19:10)
[2020-12-02] MEDS: VENTOLIN COMMON CANISTER IH SCH ×4 (06:56→19:10)
[2020-12-02] MEDS: CLARITIN 10 MG PO SCH (09:39)
[2020-12-02] MEDS: ATARAX 25 MG PO SCH (09:39)
[2020-12-02] MEDS: Cardizem CD 180 MG PO SCH (09:39)
[2020-12-02] MEDS: LIORESAL 10 MG PO SCH ×3 (09:39→22:53)
[2020-12-02] MEDS: BUMEX 1 MG PO SCH (09:39)
[2020-12-02] MEDS: Pepcid 20 MG PO SCH (09:40)
[2020-12-02] MEDS: MAG-OX 400 PO SCH ×2 (09:40→22:53)
[2020-12-02] MEDS: Neurontin 400 MG PO SCH ×4 (09:40→22:52)
[2020-12-02] MEDS: PLAVIX 75 MG Tablet PO SCH (09:41)
[2020-12-02] MEDS: Valium 5 MG PO SCH ×3 (09:41→22:53)
[2020-12-02] MEDS: SYNTHROID 100 MCG PO SCH (09:41)
--- NOTE | 2020-12-02 12:54 | PCM.NOTE ---
Date and Time: 12/02/20 1250 Subjective Assessment: Pt is still having R hip pain and leg pain. Is thanh po. Was only able to tolerate part of the MRI; however I spoke with the radiologist and he feels he got sufficient images to ensure there is no abnormality on MRI. IV dilaudid is helping her pain. - Review of Systems Constitutional: No Fever Abdominal/Gastrointestinal: No Vomiting Objective Exam General Appearance: mild distress, anxiety Neurologic Exam: alert, oriented x 3, cooperative Skin Exam: normal color, warm, dry, No rash Eye Exam: eyes nml inspection Ears, Nose, Throat Exam: moist mucous membranes Neck Exam: normal inspection Respiratory Exam: normal breath sounds, lungs clear, No crackles/rales, No rhonchi, No wheezing Cardiovascular Exam: regular rate/rhythm, normal heart sounds, No murmur Gastrointestinal/Abdomen Exam: soft, normal bowel sounds, No tenderness, No distention, No mass, No guarding, No rebound Extremity Exam: normal inspection, No pedal edema, No swelling OBJECTIVE DATA Vital Signs: Vital Signs - 24 hr Temp Pulse Resp BP Pulse Ox 12/02/20 12:00 98.1 F 69 20 103/57 92 L 12/02/20 10:51 70 20 98 12/02/20 08:00 98 12/02/20 07:59 98.0 F 63 20 109/61 98 12/02/20 06:58 54 L 16 97 12/02/20 06:17 97 12/02/20 03:46 60 16 104/67 97 12/02/20 03:29 98 12/01/20 23:45 97.9 F 72 18 127/58 100 12/01/20 19:45 97.7 F 60 20 117/75 99 12/01/20 19:29 99 12/01/20 18:40 69 20 98 12/01/20 18:28 99 12/01/20 16:00 97.4 F 60 16 115/66 99 12/01/20 14:54 67 16 99 Pain Assessment - Last Documented Pain Intensity 10 Pain Scale Used 0-10 Pain Scale Intake and Output: Intake & Output 11/30/20 12/01/20 12/02/20 12/03/20 11:59 11:59 11:59 11:59 Intake Total 3960 2770 Output Total 1300 500 Balance 2660 2270 Weight 99.6 kg Lab Results: Lab Results-Last 24 Hours 12/01/20 12/01/20 12/02/20 Range/Units 16:28 20:56 06:37 POC Glucometer 147 H 182 H 90 (74 to 106) mg/dL 12/02/20 Range/Units 11:41 POC Glucometer 158 H (74 to 106) mg/dL Radiology Exams: Radiology Procedures Category Date Time Status HIP UNI (2V) INCL PEL IF DONE Routine Exams 11/30/20 17:30 Completed LUMBAR LIMITED (2 OR 3 VIEWS) Routine Exams 11/30/20 17:30 Completed MRI LOWER EXT JOINT W/CONTRAST [MRI] Routine Exams 12/01/20 08:00 Completed THORACIC SPINE (AP,LAT,SWIMM) Routine Exams 11/30/20 17:30 Completed Assessment/Plan (1) Right hip pain Current Visit: Yes Status: Acute Assessment & Plan: Can only assume this is musculoskeletal - will consult PT. Start PO oxycodone with the plan to d/c the dilaudid pump as soon as possible. Code(s): M25.551 - PAIN IN RIGHT HIP (2) Thoracic back pain Current Visit: Yes Status: Acute Qualifiers: Chronicity: acute Back pain laterality: midline Qualified Code(s): M54.6 - Pain in thoracic spine Code(s): M54.6 - PAIN IN THORACIC SPINE (3) Lumbar back pain Current Visit: Yes Status: Acute Code(s): M54.5 - LOW BACK PAIN
[2020-12-02] MEDS: OXYCODONE-ACETAMINOPHEN 10-325 PO PRN ×3 (13:54→22:52)
[2020-12-02] MEDS: Klor Con 10 MEQ PO SCH (22:53)
[2020-12-02] MEDS: ZOCOR 20MG PO SCH (22:53)
[2020-12-02] MEDS: VENTOLIN COMMON CANISTER IH PRN (23:24)
[2020-12-03] MEDS: VENTOLIN COMMON CANISTER IH PRN (03:37)
[2020-12-03] MEDS: VENTOLIN COMMON CANISTER IH SCH ×2 (07:13→11:16)
[2020-12-03] MEDS: PATIENT OWN MEDICATION IH SCH (07:17)
[2020-12-03 07:33] VITALS: BP 109/70
--- NOTE | 2020-12-03 09:10 | PCM.DS ---
Discharge Summary Date of Admission: 11/30/20 16:57 Admitting Physician: ERICA CLARK Primary Care Provider: ERICA CLARK Allergies Allergies aspirin Allergy (Mild, Verified 11/28/20 17:50) Nausea and Vomiting codeine [Codeine] Allergy (Mild, Verified 11/28/20 17:50) Itching Penicillins Allergy (Mild, Verified 11/28/20 17:50) Nausea and Vomiting promethazine HCl [From Phenergan] Allergy (Mild, Verified 11/28/20 17:50) tremors prednisolone Allergy (Verified 11/30/20 18:14) clindamycin Adverse Reaction (Intermediate, Verified 11/28/20 17:50) Hives fluoxetine HCl [From Prozac] Adverse Reaction (Intermediate, Verified 11/28/20 17:50) confusion , "jumped out of a moving truck" sulfamethoxazole [From Bactrim] Adverse Reaction (Intermediate, Verified 11/28/20 17:50) Swelling steroid from breathing treatment Allergy (Mild, Uncoded 11/28/20 17:50) Blisters Hospital Summary - Hospital Course Hospital Course: Pt is 44 yo female with diabetes, HTN, COPD, peripheral neuropathy, and chronic hypoxemic respiratory failure who was admitted from office with pain in R hip, lumbar spine, and thoracic spine. MRIs were non acute. Labs were non acute. She has received PT and did well. This morning she is feeling better; is on po pain meds (started out on IV dilaudid) and is agreeable to going home. She will be discharged on a small amount of percocet 5mg and would like PT exercises to do at home. F/u with me in 1 week. - Vitals & Intake/Output Vital Signs: Vital Signs Temperature 97.7 F 12/03/20 07:32 Pulse Rate 66 12/03/20 07:32 Respiratory Rate 18 12/03/20 07:32 Blood Pressure 109/70 12/03/20 07:32 O2 Sat by Pulse Oximetry 98 12/03/20 07:46 Intake & Output: Intake & Output 11/30/20 12/01/20 12/02/20 12/03/20 11:59 11:59 11:59 11:59 Intake Total 3960 2770 1934 Output Total 1300 500 Balance 2660 2270 1934 Weight 99.6 kg - Lab Result Diagrams: 11/30/20 18:20 11/30/20 18:15 Lab Results-Last 24 Hrs: Lab Results-Last 24 Hours 12/02/20 12/02/20 12/02/20 Range/Units 11:41 16:07 20:13 POC Glucometer 158 H 94 136 H (74 to 106) mg/dL 12/03/20 Range/Units 06:52 POC Glucometer 131 H (74 to 106) mg/dL Micro Results-Entire Visit: Accuchecks Date 12/03/20 Date 12/02/20 Time 06:52 Time 22:00 - Procedures and Test Procedures and Tests throughout Hospitalization: Therapy Orders & Screens 11/30/20 20:14 Oxygen Nasal Cannula 4 lpm Comment: Diagnosis: THORACIC BACK PAIN 11/30/20 20:15 OT Screen per Nursing Assess ONCE Comment: Protocol Order Physician Instructions: Greater than 3 points order OT Admission Screening Reason For Exam: Triggered on Admission Diagnosis: THORACIC BACK PAIN Open Wound/Cellutlitis/Pressure Ulcers: No Acute Fx/ORIF/Change in wt bearing status: No Severe MUSCULOSKELETAL pain: Yes ADL Dysfunction: No Acute CVA w/Hemiparesis/Hemiplegia: No Decreased Functional Mobility/Strength: No Sprain/Strain: No Acute Post-op Mobility Dysfunction: No Total Points: 5 PT Screen per Nursing Assess ONCE Comment: Protocol Order Physician Instructions: Greater than 3 points order PT Admission Screenin Reason For Exam: Triggered on Admission Diagnosis: THORACIC BACK PAIN Open Wound/Cellutlitis/Pressure Ulcers: No Acute Fx/ORIF/Change in wt bearing status: No Severe MUSCULOSKELETAL pain: Yes ADL Dysfunction: No Acute CVA w/Hemiparesis/Hemiplegia: No Decreased Functional Mobility/Strength: No Sprain/Strain: No Acute Post-op Mobility Dysfunction: No Total Points: 5 RT Screen per Nursing Assess ONCE Comment: Protocol Order Physician Instructions: Greater than 3 points order RT Admission Screen Reason For Exam: Triggered on Admission Diagnosis: THORACIC BACK PAIN Diagnosis: THORACIC BACK PAIN Pneumonia: No Home O2: Yes Asthma: No CHF: No Home CPAP/BIPAP: No Home Nebs/MDI: Yes Total Points: 10 Respiratory Therapy Assessment DAILY Comment: Diagnosis: THORACIC BACK PAIN 12/01/20 07:00 Respiratory MDI BID Comment: Diagnosis: THORACIC BACK PAIN 12/02/20 10:20 PT Eval & Treat (MD Order) ONCE Reason for Eval:: low back and R hip pain, R knee pain Diagnosis: THORACIC BACK PAIN Discharge Exam General Appearance: no apparent distress, alert Neurologic Exam: oriented x 3, cooperative Eye Exam: eyes nml inspection Ears, Nose, Throat Exam: moist mucous membranes Neck Exam: normal inspection Respiratory Exam: normal breath sounds, lungs clear, No crackles/rales, No rhonchi, No wheezing Cardiovascular Exam: regular rate/rhythm, normal heart sounds, No murmur Gastrointestinal/Abdomen Exam: soft, normal bowel sounds, No tenderness, No distention Extremity Exam: normal inspection, No swelling Skin Exam: normal color, warm, dry, No rash Final Diagnosis/Problem List - Final Discharge Diagnosis/Problem (1) Right hip pain Current Visit: Yes Status: Acute Assessment & Plan: Improved; home after PT today. Would like PT to give pt some home exercises if possible. Home on 3d of Percocet 5/325 prn. INSPECT appropriate today 12/03/20. Code(s): M25.551 - PAIN IN RIGHT HIP (2) Thoracic back pain Current Visit: Yes Status: Acute Code(s): M54.6 - PAIN IN THORACIC SPINE (3) Lumbar back pain Current Visit: Yes Status: Acute Code(s): M54.5 - LOW BACK PAIN (4) Hypertension Current Visit: No Status: Chronic Code(s): I10 - ESSENTIAL (PRIMARY) HYPERTENSION (5) COPD (chronic obstructive pulmonary disease) Current Visit: No Status: Chronic (6) Chronic hypoxemic respiratory failure Current Visit: No Status: Chronic Onset Date: ~04/06/18 (7) Diabetes type 2, controlled Current Visit: No Status: Chronic Code(s): E11.9 - TYPE 2 DIABETES MELLITUS WITHOUT COMPLICATIONS - Discharge Disposition: Home, Self-Care Condition: Good Prescriptions: New Oxycodone/APAP 5 mg/325 mg [Percocet Tablet 5/325Mg] 1 tab PO BID PRN #6 tablet MDD 2 PRN Reason: Severe Pain Continue Simvastatin [Zocor] 20 mg PO HS Levothyroxine Sodium 100 Mcg [Synthroid 100 Mcg] 100 mcg PO QAM Clopidogrel Bisulfate 75 mg [PLAVIX 75 MG Tablet] 75 mg PO DAILY Bumetanide 1 mg [Bumex 1 mg] 1 mg PO DAILY #30 tablet Diazepam 5 mg [Valium 5 MG] 10 mg PO TID Albuterol Sulfate [Ventolin Hfa] 2 puff IH QID Loratadine 10 mg [Claritin 10 mg] 10 mg PO BID Potassium Chloride [K-Dur] 20 meq PO HS Magnesium Oxide 400 mg PO BID Baclofen 10 mg [Lioresal 10 mg] 10 mg PO TID #30 tablet Fluticasone Propionate [Flovent 110 Mcg MDI] 1 puff IH BID Propranolol HCl [Propranolol HCl ER] 80 mg PO HS Ergocalciferol (Vitamin D2) [Vitamin D2] 50,000 units PO WEEKLY Cyanocobalamin/Cobamamide [B-12 5,000 Mcg Sublingual Tab] 5,000 mcg SL QID Gabapentin 800 mg PO QID #120 tablet Hydroxyzine HCl 25 mg [Atarax 25 mg] 25 mg PO DAILY Diltiazem HCl [Cartia Xt] 180 mg PO DAILY Famotidine 20 mg [Pepcid 20 MG] 20 mg PO DAILY #10 tablet Ondansetron HCl [Zofran] 4 mg PO TID PRN #10 tablet PRN Reason: Nausea/Vomiting Diphenhydramine HCl 25 mg [Benadryl 25 mg Capsule] 25 mg PO Q8H PRN PRN Reason: Itching Discontinued Sucralfate 1 gm [Carafate 1 GM] 1 g PO ACHS #12 tablet Additional Instructions: DR. AVENDANO OFFICE IS SENT IN A NEW ORDER FOR GLUCOMETER AND SUPPLIES TO YOUR PHARMACY Follow up with: ERICA CLARK [Primary Care Provider] - 12/14/20 10:45 am
[2020-12-03] MEDS: Neurontin 400 MG PO SCH (09:34)
[2020-12-03] MEDS: PLAVIX 75 MG Tablet PO SCH (09:34)
[2020-12-03] MEDS: Cardizem CD 180 MG PO SCH (09:34)
[2020-12-03] MEDS: OXYCODONE-ACETAMINOPHEN 10-325 PO PRN (09:34)
[2020-12-03] MEDS: MAG-OX 400 PO SCH (09:35)
[2020-12-03] MEDS: CLARITIN 10 MG PO SCH (09:35)
[2020-12-03] MEDS: ATARAX 25 MG PO SCH (09:35)
[2020-12-03] MEDS: Valium 5 MG PO SCH (09:35)
[2020-12-03] MEDS: SYNTHROID 100 MCG PO SCH (09:35)
[2020-12-03] MEDS: LIORESAL 10 MG PO SCH (09:35)
[2020-12-03] MEDS: BUMEX 1 MG PO SCH (09:35)
[2020-12-03] MEDS: Pepcid 20 MG PO SCH (09:35)
[2020-12-03 11:18] VITALS: PULSE 71; O2SAT 97
== END 2020-12-03 11:20 | disposition home or self-care (01) ==
LOC: MED SURG 16:57
PROVIDERS: ADMIT Family Medicine; ATTEND Family Medicine
DX: M25.551 Pain in right hip (principal); M54.6 Pain in thoracic spine; M54.5 Low back pain; E11.9 Type 2 diabetes mellitus without complications; I10 Essential (primary) hypertension; J44.9 Chronic obstructive pulmonary disease, unspecified; J96.11 Chronic respiratory failure with hypoxia; Z20.828 Contact with and (suspected) exposure to other viral communicable diseases; G62.9 Polyneuropathy, unspecified; Z79.899 Other long term (current) drug therapy; Z79.01 Long term (current) use of anticoagulants
CPT/HCPCS: 36415; 72072; 72100; 73502; 73722; 80053; 81001; 82947; 85025; 94640; 94762; 97161; U0003; 93268; J1170; J1642; J2405; A9270-GY; G0378

== ENCOUNTER 2020-12-09 16:45 | Emergency (ER) | payer OTHER ==
[2020-12-09] MEDS ORDERED: Sodium Chloride 0.9% 1000 ML 1,000 ML IV STA (17:24)
[2020-12-09] MEDS ORDERED: Zofran 4 MG/2 ML VIAL IV ONE (17:24)
[2020-12-09] MEDS ORDERED: MORPHINE SULFATE 4 MG INJ IV ONE (17:24)
[2020-12-09] MEDS ORDERED: DECADRON 10MG INJ. IV ONE (17:25)
--- NOTE | 2020-12-09 18:08 | ERPHSYRPT ---
- History of Present Illness Time Seen by Provider: 12/09/20 16:54 Source: patient Exam Limitations: no limitations Patient Subjective Stated Complaint: Pt c/o of back pain to the lower right which she states she has a "spinal lumbar tear" Triage Nursing Assessment: Pt was brought to the ER by her , sergio kearns, rates pain as 10/10, states that she can't feel her right leg from the hip down, no difficulties with the left, pt had recently stayed in [facility] for 3-4 days for the same issues, pulses normal, back pain with palpatations Physician History: 44 years old female with multiple medical problems including earlier from COPD on oxygen presented in the ER with chief complaint of worsening low back and right hip pain for 3 weeks after she twisted/moved her right lower extremity while sitting and felt a popping sound. Since then she is having excruciating pain in the right hip and low back. She was evaluated in the ER here with a negative CT hip and lumbar spine. Later on patient was seen outpatient with admission and inpatient MRI right hip which was also negative. Patient could not tolerate MRI of lumbar/thoracic spine because of being claustrophobic. Patient reports she bent forward yesterday and could not get back up and fell and since then she has no sensation in the right lower extremity although she is able to move it but she cannot feel anything from hip down. Patient went for a physical therapy today and because of excruciating pain could not complete her session and is reported in the ER. Patient denies any loss of bowel or bladder control. Is any direct trauma to the back. Timing/Duration: week(s) (3), constant, sudden, worse Method of Injury: twisted Quality: sharp, stabbing Back Pain Location: T-spine, lumbar spine, paraspinous muscles Back Pain Radiation: buttocks Severity of Pain-Max: severe Severity of Pain-Current: severe Modifying Factors: Improves With: immobilization. Worsens With: movement Associated Symptoms: numbness in legs/feet, sensory/motor loss, tingling in legs/feet, lower back pain, No urinary incontinence, No loss of bowel control, No constipation, No problems urinating, No light-headedness, No dizziness Previous symptoms: no prior history Allergies/Adverse Reactions: aspirin Allergy (Mild, Verified 12/09/20 17:10) Nausea and Vomiting codeine [Codeine] Allergy (Mild, Verified 12/09/20 17:10) Itching Penicillins Allergy (Mild, Verified 12/09/20 17:10) Nausea and Vomiting promethazine HCl [From Phenergan] Allergy (Mild, Verified 12/09/20 17:10) tremors prednisolone Allergy (Verified 12/09/20 17:10) clindamycin Adverse Reaction (Intermediate, Verified 12/09/20 17:10) Hives fluoxetine HCl [From Prozac] Adverse Reaction (Intermediate, Verified 12/09/20 17:10) confusion , "jumped out of a moving truck" sulfamethoxazole [From Bactrim] Adverse Reaction (Intermediate, Verified 12/09/20 17:10) Swelling steroid from breathing treatment Allergy (Mild, Uncoded 12/09/20 17:10) Blisters Home Medications: Levothyroxine Sodium 100 Mcg [Synthroid 100 Mcg] 100 mcg PO QAM 09/27/14 [History] Simvastatin [Zocor] 20 mg PO 09/27/14 [History] Clopidogrel Bisulfate 75 mg [PLAVIX 75 MG Tablet] 75 mg PO DAILY 04/05/15 [History] Diazepam 5 mg [Valium 5 MG] 10 mg PO TID 02/14/16 [History] Albuterol Sulfate [Ventolin Hfa] 2 puff IH QID 12/21/16 [History] Loratadine 10 mg [Claritin 10 mg] 10 mg PO BID 07/30/17 [History] Potassium Chloride [K-Dur] 20 meq PO HS 08/03/17 [History] Magnesium Oxide 400 mg PO BID 09/10/17 [History] Cyanocobalamin/Cobamamide [B-12 5,000 Mcg Sublingual Tab] 5,000 mcg SL QID 01/21/19 [History] Ergocalciferol (Vitamin D2) [Vitamin D2] 50,000 units PO WEEKLY 01/21/19 [History] Fluticasone Propionate [Flovent 110 Mcg MDI] 1 puff IH BID 01/21/19 [History] Propranolol HCl [Propranolol HCl ER] 80 mg PO HS 01/21/19 [History] Diltiazem HCl [Cartia Xt] 180 mg PO DAILY 04/22/20 [History] Hydroxyzine HCl 25 mg [Atarax 25 mg] 25 mg PO DAILY 04/22/20 [History] Diphenhydramine HCl 25 mg [Benadryl 25 mg Capsule] 25 mg PO Q8H PRN 11/30/20 [History] Hx Tetanus, Diphtheria Vaccination/Date Given: Yes Hx Influenza Vaccination/Date Given: Yes Hx Pneumococcal Vaccination/Date Given: Yes Travel Risk - International Travel Have you traveled outside of the country in past 3 weeks: No - Coronavirus Screening Are you exhibiting any of the following symptoms?: No Close contact with a COVID-19 positive Pt in past 14-21 Days: No - Vaccine Status Have you recieved a Covid-19 vaccination: No - Review of Systems Constitutional: No Symptoms Eyes: No Symptoms Ears, Nose, & Throat: No Symptoms Respiratory: No Symptoms Cardiac: No Symptoms Abdominal/Gastrointestinal: No Symptoms Genitourinary Symptoms: No Symptoms Musculoskeletal: Back Pain, Joint Pain Skin: No Symptoms Neurological: Sensory Changes Psychological: No Symptoms Endocrine: No Symptoms Hematologic/Lymphatic: No Symptoms Immunological/Allergic: No Symptoms - Past Medical History Pertinent Past Medical History: Yes Neurological History: Peripheral Neuropathy, Seizures, Stroke ENT History: No Pertinent History Cardiac History: High Cholesterol, Hypertension Respiratory History: COPD Endocrine Medical History: Diabetes Type II, Hypothyroidism Musculoskeletal History: Arthritis GI Medical History: GERD, Hernia, Ulcer History: No Pertinent History Psycho-Social History: Anxiety, Bipolar, Depression, Panic Disorder Female Reproductive Disorders: Endometriosis Other Medical History: CVA 2018. 4 years since last seizure. Mitral valve prolapse - Past Surgical History Past Surgical History: Yes Neuro Surgical History: No Pertinent History Cardiac: Cardiac Catheterization Respiratory: No Pertinent History Gastrointestinal: Appendectomy, Cholecystectomy, Hernia Repair Genitourinary: No Pertinent History Musculoskeletal: Joint Replacement, Orthopedic Surgery Female Surgical History: Hysterectomy, Dilation & Curettage Other Surgical History: torn miniscus and implant-RT KNEE" partial scope replacement", oral surgery, melanoma removed for face twice, port placement twice with one removal. - Social History Smoking Status: Former smoker How long have you smoked: 12 years Exposure to second hand smoke: Yes Alcohol Use: None Drug Use: none Patient Lives Alone: No Significant Family History: no pertinent family hx, heart disease, diabetes, h ypertension - Female History Hx Now: No - Nursing Vital Signs Nursing Vital Signs: Initial Vital Signs Temperature 98.3 F 12/09/20 16:49 Pulse Rate 77 12/09/20 16:49 Blood Pressure 115/79 12/09/20 16:49 O2 Sat by Pulse Oximetry 96 12/09/20 16:49 Pain Scale Pain Intensity [Right Distal 10 Back] Pain Intensity 10 - Physical Exam General Appearance: no apparent distress, alert Eye Exam: PERRL/EOMI, eyes nml inspection Ears, Nose, Throat Exam: normal ENT inspection, TMs normal, pharynx normal Neck Exam: normal inspection, supple, full range of motion Respiratory Exam: wheezing Cardiovascular Exam: regular rate/rhythm, normal heart sounds Gastrointestinal Exam: soft, normal bowel sounds, No tenderness Back Exam: normal inspection, vertebral tenderness (Lumbar/thoracic), decreased range of motion, muscle spasm, point tenderness, No normal range of motion Extremity Exam: normal inspection, pelvis stable Neurologic Exam: alert, oriented x 3, cooperative, home lighting adviser II-XII nml as tested, sensory deficit (Sensation of fine and crude touch right lower extremity. 1+ right knee and ankle reflexes. No plantar response. Decreased sensation around perianal area. Decreased anal tone.), No nml station & gait, No sensation nml Skin Exam: normal color SpO2 Interpretation: normal SpO2: 968 O2 Delivery: Room Air Ordered Tests: Active Orders 24 hr Category Date Time Status IV Insertion STAT Care 12/09/20 17:24 Active NPO (ED) STAT Care 12/09/20 17:24 Active CBC W DIFF Stat Lab 12/09/20 18:50 Completed CMP Stat Lab 12/09/20 18:50 Received HCG,QUALITATIVE URINE Stat Lab 12/09/20 18:38 Completed UA W/RFX UR CULTURE Stat Lab 12/09/20 18:38 Received Medication Summary Discontinued Medications Generic Name Dose Route Start Last Admin Trade Name Freq PRN Reason Stop Dose Admin Dexamethasone Sodium Phosphate 10 mg 12/09/20 17:25 12/09/20 18:16 Decadron 10mg Inj. IV 12/09/20 17:26 10 mg STAT ONE Administration Dexamethasone Sodium Phosphate Confirm 12/09/20 18:10 Decadron 10mg Inj. Administered 12/09/20 18:11 Dose 10 mg .ROUTE .STK-MED ONE Sodium Chloride 1,000 mls @ 999 mls/hr 12/09/20 17:24 12/09/20 18:15 Sodium Chloride 0.9% 1000 Ml IV 12/09/20 18:24 999 mls/hr .Q1H1M STA Administration Sodium Chloride Confirm 12/09/20 18:10 Sodium Chloride 0.9% 1000 Ml Administered 12/09/20 18:11 Dose 1,000 mls @ ud .ROUTE .STK-MED ONE Morphine Sulfate 4 mg 12/09/20 17:24 12/09/20 18:15 Morphine Sulfate 4 Mg Inj IV 12/09/20 17:25 4 mg STAT ONE Administration Morphine Sulfate Confirm 12/09/20 18:10 Morphine Sulfate 4 Mg Inj Administered 12/09/20 18:11 Dose 4 mg .ROUTE .STK-MED ONE Ondansetron HCl 4 mg 12/09/20 17:24 12/09/20 18:16 Zofran 4 Mg/2 Ml Vial IV 12/09/20 17:25 4 mg STAT ONE Administration Ondansetron HCl Confirm 12/09/20 18:10 Zofran 4 Mg/2 Ml Vial Administered 12/09/20 18:11 Dose 4 mg .ROUTE .STK-MED ONE Lab/Rad Data: Laboratory Result Diagrams 12/09/20 18:50 Laboratory Results 12/09/20 12/09/20 Range/Units 18:50 18:38 WBC 7.7 (4.0-10.5) K/mm3 RBC 4.49 (4.1-5.4) M/mm3 Hgb 12.5 (12.0-16.0) gm/dl Hct 39.3 (35-47) % MCV 87.5 (78-100) fl MCH 27.8 (26-32) pg MCHC 31.8 L (32-36) g/dl RDW 13.9 (11.5-14.0) % Plt Count 183 (150-450) K/mm3 MPV 10.7 (7.5-11.0) fl Gran % 53.1 (36.0-66.0) % Eos # (Auto) 0.60 H (0-0.5) Absolute Lymphs (auto) 2.21 (1.0-4.6) Absolute Monos (auto) 0.78 (0.0-1.3) Lymphocytes % 28.8 (24.0-44.0) % Monocytes % 10.2 (0.0-12.0) % Eosinophils % 7.8 H (0.00-5.0) % Basophils % 0.1 (0.0-0.4) % Absolute Granulocytes 4.07 (1.4-6.9) Basophils # 0.01 (0-0.4) Urine HCG, Qual NEGATIVE (Negative) - Progress Progress: unchanged, re-examined Progress Note: 12/09/20 19:12 44 years old is evaluated in the ER for lower back/hip pain with loss of sensation in the right lower extremity with decreased to no sensation in the perianal area and decreased anal tone and reflexes in right lower extremity. With her symptoms I believe patient needs MRI stat to rule out reason for neurological compromise. Do not have MRI services here. I have called [facility], ER physician was busy for a while and I have just spoke with Dr. Melendez, reviewed history, exam findings and need for MRI. Patient is accepted for transfer. Plan discussed with patient who understand and agrees with it. She is given a dose of morphine and Decadron in here as well. Discussed with Dr.: Other (Dr. Melendez at formerly [facility]) Counseled pt/family regarding: diagnosis - Departure Departure Disposition: Transfer Clinical Impression: Numbness of left lower extremity Acute low back pain Qualifiers: Back pain laterality: right Sciatica presence: with sciatica Sciatica laterality: sciatica of right side Qualified Code(s): M54.41 - Lumbago with sciatica, right side Condition: Stable Critical Care Time: No Referrals: ERICA CLARK [Primary Care Provider] -
[2020-12-09] MEDS ORDERED: Sodium Chloride 0.9% 1000 ML 1,000 ML ONE (18:10)
[2020-12-09] MEDS ORDERED: DECADRON 10MG INJ. ONE (18:10)
[2020-12-09] MEDS ORDERED: MORPHINE SULFATE 4 MG INJ ONE (18:10)
[2020-12-09] MEDS ORDERED: Zofran 4 MG/2 ML VIAL ONE (18:10)
[2020-12-09 18:57] LABS: Absolute Neutrophil Ct (ANC) 4.07 (1.4-6.9); BASOPHIL % 0.1 % (0.0-0.4); Basophil (Absolute #) 0.01 (0-0.4); Eosinophil % 7.8 % (0.00-5.0); Hematocrit 39.3 % (35-47); Hemoglobin 12.5 gm/dl (12.0-16.0); Lymphocyte (Absolute #) 2.21 (1.0-4.6); Lymphocytes % 28.8 % (24.0-44.0); Mean Cell Volume 87.5 fl (78-100); Mean Corpuscular Hemoglobin 27.8 pg (26-32); Mean Corpuscular Hgb Concent. 31.8 g/dl (32-36); Mean Platelet Volume 10.7 fl (7.5-11.0); Monocyte (Absolute #) 0.78 (0.0-1.3); Monocytes % 10.2 % (0.0-12.0); Neutrophil % 53.1 % (36.0-66.0); Platelet Count 183 K/mm3 (150-450); Red Blood Count 4.49 M/mm3 (4.1-5.4); Red Cell Distribution Width 13.9 % (11.5-14.0); White Blood Count 7.7 K/mm3 (4.0-10.5)
[2020-12-09 18:58] LABS: ALBUMIN 4.2 g/dL (3.5-5.0); ALKALINE PHOSPHATASE 90 U/L (38-126); ANION GAP 13.5 MEQ/L (5-15); BLOOD UREA NITROGEN 14 mg/dL (7-17); CHLORIDE 103 mmol/L (98-107); Carbon Dioxide 27 mmol/L (22-30); Creatinine 1 0.78 mg/dL (0.52-1.04); EST GLOMERULAR FILTRATION RATE > 60.0 ML/MIN; Glucose 105 mg/dL (74-106); Potassium 3.2 mmol/L (3.5-5.1); SGOT/AST 25 U/L (14-36); SGPT/ALT 19 U/L (0-35); SODIUM 140 mmol/L (137-145); Total Protein 6.9 g/dL (6.3-8.2)
[2020-12-09 19:08] LABS: Appearance SLIGHTLY CLOUDY (CLEAR); Bilirubin NEGATIVE (NEGATIVE); Blood NEGATIVE Ery/ul (0-5); Epithelial Cells RARE /HPF (FEW); Glucose NEGATIVE (NEGATIVE); Hyaline Casts 0-2 /LPF (0-2); Ketones NEGATIVE (NEGATIVE); Leukocyte Esterase TRACE (NEGATIVE); Mucus SLIGHT /HPF (NEGATIVE); Nitrite NEGATIVE (NEGATIVE); Protein,Urine Dip NEGATIVE (Negative); Specific Gravity 1.014 (1.005-1.025); Urobilinogen NEGATIVE mg/dL (0-1)
[2020-12-09 19:43] VITALS: O2SAT 98
[2020-12-09 20:45] VITALS: BP 155/74; PULSE 74
== END 2020-12-09 20:20 | disposition short-term general hospital (02) ==
LOC: ED 16:45
DX: M54.41 Lumbago with sciatica, right side (principal); R20.0 Anesthesia of skin; M79.661 Pain in right lower leg; J44.9 Chronic obstructive pulmonary disease, unspecified; E78.00 Pure hypercholesterolemia, unspecified; I10 Essential (primary) hypertension; E11.9 Type 2 diabetes mellitus without complications; E03.9 Hypothyroidism, unspecified; Z79.899 Other long term (current) drug therapy
CPT/HCPCS: 36415; 80053; 81001; 84703; 85025; 96360; 96374; 96375; 96376; 99285; J1100; J2270; J2405

== ENCOUNTER 2021-05-18 20:37 | Observation (INO) | payer OTHER ==
[2021-05-18 21:13] LABS: Absolute Neutrophil Ct (ANC) 3.48 (1.4-6.9); BASOPHIL % 0.2 % (0.0-0.4); Basophil (Absolute #) 0.01 (0-0.4); Eosinophil % 5.6 % (0.00-5.0); Eosinophil (Absolute #) 0.36 (0-0.5); Hematocrit 41.8 % (35-47); Hemoglobin 13.8 gm/dl (12.0-16.0); Lymphocyte (Absolute #) 1.97 (1.0-4.6); Lymphocytes % 30.6 % (24.0-44.0); Mean Cell Volume 87.1 fl (78-100); Mean Corpuscular Hemoglobin 28.8 pg (26-32); Mean Platelet Volume 11.1 fl (7.5-11.0); Monocyte (Absolute #) 0.61 (0.0-1.3); Monocytes % 9.5 % (0.0-12.0); Neutrophil % 54.1 % (36.0-66.0); Platelet Count 210 K/mm3 (150-450); Red Cell Distribution Width 13.8 % (11.5-14.0); White Blood Count 6.4 K/mm3 (4.0-10.5)
[2021-05-18 21:32] LABS: ALBUMIN 4.6 g/dL (3.5-5.0); ALKALINE PHOSPHATASE 111 U/L (38-126); ANION GAP 13.4 MEQ/L (5-15); BLOOD UREA NITROGEN 11 mg/dL (7-17); CHLORIDE 102 mmol/L (98-107); Calcium 9.4 mg/dL (8.4-10.2); Carbon Dioxide 29 mmol/L (22-30); Creatinine 1 0.75 mg/dL (0.52-1.04); EST GLOMERULAR FILTRATION RATE > 60.0 ML/MIN; Glucose 102 mg/dL (74-106); Potassium 3.5 mmol/L (3.5-5.1); SGOT/AST 25 U/L (14-36); SGPT/ALT 19 U/L (0-35); SODIUM 141 mmol/L (137-145); Total Protein 7.2 g/dL (6.3-8.2)
--- NOTE | 2021-05-18 21:35 | ERPHSYRPT ---
- History of Present Illness Time Seen by Provider: 05/18/21 20:45 Historian: patient Exam Limitations: no limitations Patient Subjective Stated Complaint: " I have been having chest pains for about an hour, it hurts into my left boob ". Triage Nursing Assessment: Pt presents to ER with complaints of mid-sternal chest pains that radiates into left jaw. Pt is alert and oriented x 3. Skin is pink, warm, and dry. Respirations are easy at this time, states has chronic "shortness of breath" and wears 4L o2 via NC at home. Pt denies nausea, vomitin g, or diarrhea. Pt states chest pain began suddenly approx 1 hour ago. States pain is sharp and intermittent. Rates pain 7/10 scale at this time. Physician History: Patient is a 45-year-old female presents to our ED for evaluation of shortness of breath and chest pain. Symptoms started approximately an hour prior to arrival. Patient states she was at home when symptoms started. Patient states that pain originates in her left breast. Patient states her left breast is very tender. Patient describes the left breast as a burning sensation that radiates up into her chest and into her left jaw. Patient wears 4 L nasal cannula daily due to COPD. No associated nausea or vomiting. No diaphoresis. No rash. No trauma. Symptoms are mild to moderate in intensity. Palpation to left breast reproduces symptoms. Patient otherwise voices no other complaints at this time. Timing/Duration: today Activities at Onset: none (Patient was holding her 6-month-old grandchild when symptoms started.) Quality: burning Location: other (Left breast radiates into chest and left neck.) Chest Pain Radiation: neck Severity of Pain-Max: moderate Severity of Pain-Current: mild Modifying Factors: Improves With: nothing Associated Symptoms: denies symptoms Prior Chest Pain/Cardiac Workup: no prior chest pain Nitro Today/Relief: no nitro taken today (Patient threw her nitroglycerin pills out today. When her symptoms started she realized her nitroglycerin prescription was outdated and throughout the pills.) Aspirin Treatment Today: no aspirin today (Patient is allergic to aspirin. However patient took her Plavix today.) Allergies/Adverse Reactions: aspirin Allergy (Mild, Verified 05/18/21 20:45) Nausea and Vomiting codeine [Codeine] Allergy (Mild, Verified 05/18/21 20:45) Itching Penicillins Allergy (Mild, Verified 05/18/21 20:45) Nausea and Vomiting promethazine HCl [From Phenergan] Allergy (Mild, Verified 05/18/21 20:45) tremors prednisolone Allergy (Verified 05/18/21 20:45) clindamycin Adverse Reaction (Intermediate, Verified 05/18/21 20:45) Hives fluoxetine HCl [From Prozac] Adverse Reaction (Intermediate, Verified 05/18/21 20:45) confusion , "jumped out of a moving truck" sulfamethoxazole [From Bactrim] Adverse Reaction (Intermediate, Verified 05/18/21 20:45) Swelling steroid from breathing treatment Allergy (Mild, Uncoded 12/09/20 17:10) Blisters Home Medications: Levothyroxine Sodium 100 Mcg [Synthroid 100 Mcg] 100 mcg PO QAM 09/27/14 [History] Simvastatin [Zocor] 20 mg PO HS 09/27/14 [History] Clopidogrel Bisulfate 75 mg [PLAVIX 75 MG Tablet] 75 mg PO DAILY 04/05/15 [History] Diazepam 5 mg [Valium 5 MG] 10 mg PO TID PRN 02/14/16 [History] Albuterol Sulfate [Ventolin Hfa] 2 puff IH QID 12/21/16 [History] Loratadine 10 mg [Claritin 10 mg] 10 mg PO BID 07/30/17 [History] Magnesium Oxide 400 mg PO BID 09/10/17 [History] Ergocalciferol (Vitamin D2) [Vitamin D2] 50,000 units PO WEEKLY 01/21/19 [History] Propranolol HCl [Propranolol HCl ER] 80 mg PO HS 01/21/19 [History] Diltiazem HCl [Cartia Xt] 180 mg PO DAILY 04/22/20 [History] Hydroxyzine HCl 25 mg [Atarax 25 mg] 25 mg PO DAILY 04/22/20 [History] Diphenhydramine HCl 25 mg [Benadryl 25 mg Capsule] 25 mg PO Q8H PRN 11/30/20 [History] Hx Tetanus, Diphtheria Vaccination/Date Given: Yes Hx Influenza Vaccination/Date Given: Yes Hx Pneumococcal Vaccination/Date Given: No Immunizations Up to Date: Yes Travel Risk - International Travel Have you traveled outside of the country in past 3 weeks: No - Coronavirus Screening Are you exhibiting any of the following symptoms?: No - Vaccine Status Have you recieved a Covid-19 vaccination: No - Review of Systems Constitutional: No Symptoms, No Fever, No Chills Eyes: No Symptoms Ears, Nose, & Throat: No Symptoms Respiratory: No Symptoms, No Cough, No Dyspnea Cardiac: No Symptoms, No Chest Pain, No Edema, No Syncope Abdominal/Gastrointestinal: No Symptoms, No Abdominal Pain, No Nausea, No Vomiting, No Diarrhea Genitourinary Symptoms: No Symptoms, No Dysuria Musculoskeletal: No Symptoms, No Back Pain, No Neck Pain Skin: No Symptoms, No Rash Neurological: No Symptoms, No Dizziness, No Focal Weakness, No Sensory Changes Psychological: No Symptoms Endocrine: No Symptoms Hematologic/Lymphatic: No Symptoms Immunological/Allergic: No Symptoms All Other Systems: Reviewed and Negative - Past Medical History Pertinent Past Medical History: Yes Neurological History: Peripheral Neuropathy, Seizures, Stroke ENT History: No Pertinent History Cardiac History: High Cholesterol, Hypertension Respiratory History: COPD Endocrine Medical History: Diabetes Type II, Hypothyroidism Musculoskeletal History: Arthritis GI Medical History: GERD, Hernia, Ulcer History: No Pertinent History Psycho-Social History: Anxiety, Bipolar, Depression, Panic Disorder Female Reproductive Disorders: Endometriosis Other Medical History: CVA 2018. 4 years since last seizure. Mitral valve prolapse - Past Surgical History Past Surgical History: Yes Neuro Surgical History: No Pertinent History Cardiac: Cardiac Catheterization Respiratory: No Pertinent History Gastrointestinal: Appendectomy, Cholecystectomy, Hernia Repair Genitourinary: No Pertinent History Musculoskeletal: Joint Replacement, Orthopedic Surgery Female Surgical History: Hysterectomy, Dilation & Curettage Other Surgical History: torn miniscus and implant-RT KNEE" partial scope replacement", oral surgery, melanoma removed for face twice, port placement twice with one removal. - Social History Smoking Status: Never smoker How long have you smoked: 12 years Exposure to second hand smoke: Yes Alcohol Use: None Drug Use: none Patient Lives Alone: No Significant Family History: no pertinent family hx, heart disease, diabetes, hypertension - Female History Hx Now: No - Nursing Vital Signs Nursing Vital Signs: Initial Vital Signs Temperature 97.6 F 05/18/21 20:40 Pulse Rate 82 05/18/21 20:40 Respiratory Rate 20 05/18/21 20:40 Blood Pressure 131/87 05/18/21 20:40 O2 Sat by Pulse Oximetry 98 05/18/21 20:40 Pain Scale Pain Intensity 6 - Physical Exam General Appearance: no apparent distress, alert Eye Exam: PERRL/EOMI, eyes nml inspection Ears, Nose, Throat Exam: normal ENT inspection, TMs normal, pharynx normal, moist mucous membranes Neck Exam: normal inspection, non-tender, supple, full range of motion Respiratory Exam: normal breath sounds, chest tenderness (Chest tenderness and left breast tenderness.), lungs clear, No respiratory distress Cardiovascular Exam: regular rate/rhythm, normal heart sounds, normal peripheral pulses Gastrointestinal/Abdomen Exam: soft, No tenderness, No mass Back Exam: normal inspection, No CVA tenderness, No vertebral tenderness Extremity Exam: normal inspection, normal range of motion Neurologic Exam: alert, oriented x 3, cooperative, normal mood/affect, sensation nml, No motor deficits Skin Exam: normal color, warm, dry SpO2 Interpretation: normal SpO2: 99 O2 Delivery: Room Air - Course Nursing assessment & vital signs reviewed: Yes EKG Interpreted by Me: RATE (81), Sinus Rhythm, NORMAL AXIS, NORMAL INTERVALS - Radiology Exams Chest X-ray Interpretation: Interpreted by me (Right hemidiaphragm elevation. Normal heart lungs and bony thorax. Port-A-Cath intact. No acute process.) - CT Exams Chest CT Interpretation: Tele-radiologist Report (Multiple nonspecific pulmonary nodules. 8 mm left lower lobe nodule which is slightly smaller than on prior study. 6 mm right upper lobe nodule is mildly larger than on prior study. 8 mm lingula nodular opacity is new compared to prior study. Mild scarring and atelectasis. No PE.) Ordered Tests: Active Orders 24 hr Category Date Time Status Film Reader STAT Care 05/18/21 20:53 Active EKG-ER Only STAT Care 05/18/21 20:53 Active IV Insertion STAT Care 05/18/21 20:53 Active Oxygen-ED Only Nasal Cannula 4 lpm Care 05/18/21 20:56 Active Pulse Oximetry (ED) STAT Care 05/18/21 20:53 Active CHEST 1 VIEW (PORTABLE) Stat Exams 05/18/21 20:53 Taken CHEST WITH CONTRAST [CT] Stat Exams 05/18/21 21:32 Taken BNP [NT PRO BNP] Stat Lab 05/18/21 21:10 Completed CBC W DIFF Stat Lab 05/18/21 21:09 Completed CMP Stat Lab 05/18/21 21:09 Completed D-DIMER QUANTITATIVE Stat Lab 05/18/21 21:09 Completed TROPONIN Q3H Lab 05/18/21 21:09 Completed TROPONIN Q3H Lab 05/19/21 00:32 Completed TROPONIN Q3H Lab 05/19/21 03:00 Ordered TROPONIN Q3H Lab 05/19/21 06:00 Ordered TROPONIN Q3H Lab 05/19/21 09:00 Ordered Medication Summary Generic Name Dose Route Start Last Admin Trade Name Parker PRN Reason Stop Dose Admin Heparin Sodium (Beef Lung) 500 units 05/18/21 22:42 05/18/21 22:43 Heparin Lock Flush Pf 500 Units/5 Ml Syringe PORT FLUSH 06/17/21 22:41 500 units PRN PRN Administration IV PORT FLUSH Discontinued Medications Generic Name Dose Route Start Last Admin Trade Name Parker PRN Reason Stop Dose Admin Morphine Sulfate 4 mg 05/19/21 00:18 05/19/21 00:23 Morphine Sulfate 4 Mg/Ml Injection IV 05/19/21 00:19 4 mg STAT ONE Administration Morphine Sulfate Confirm 05/19/21 00:22 Morphine Sulfate 4 Mg/Ml Injection Administered 05/19/21 00:23 Dose 4 mg .ROUTE .Vocab-MED ONE Lab/Rad Data: Laboratory Result Diagrams 05/18/21 21:09 05/18/21 21:09 Laboratory Results 05/19/21 05/19/21 05/18/21 Range/Units 00:37 00:32 21:10 WBC (4.0-10.5) K/mm3 RBC (4.1-5.4) M/mm3 Hgb (12.0-16.0) gm/dl Hct (35-47) % MCV (78-100) fl MCH (26-32) pg MCHC (32-36) g/dl RDW (11.5-14.0) % Plt Count (150-450) K/mm3 MPV (7.5-11.0) fl Gran % (36.0-66.0) % Eos # (Auto) (0-0.5) Absolute Lymphs (auto) (1.0-4.6) Absolute Monos (auto) (0.0-1.3) Lymphocytes % (24.0-44.0) % Monocytes % (0.0-12.0) % Eosinophils % (0.00-5.0) % Basophils % (0.0-0.4) % Absolute Granulocytes (1.4-6.9) Basophils # (0-0.4) D-Dimer (215-500) ng/mL Sodium (137-145) mmol/L Potassium (3.5-5.1) mmol/L Chloride (98-107) mmol/L Carbon Dioxide (22-30) mmol/L Anion Gap (5-15) MEQ/L BUN (7-17) mg/dL Creatinine (0.52-1.04) mg/dL Estimated GFR ML/MIN Glucose (74-106) mg/dL Calcium (8.4-10.2) mg/dL Total Bilirubin (0.2-1.3) mg/dL AST (14-36) U/L ALT (0-35) U/L Alkaline Phosphatase (38-126) U/L Troponin I 0.025 (0.000-0.034) ng/mL NT-Pro-B Natriuret Pep 31.3 (0-450) pg/mL Serum Total Protein (6.3-8.2) g/dL Albumin (3.5-5.0) g/dL Influenza Type A Ag NEGATIVE (NEGATIVE) Influenza Type B Ag NEGATIVE (NEGATIVE) RSV (PCR) NEGATIVE (Negative) SARS-CoV-2 (PCR) NEGATIVE (NEGATIVE) 05/18/21 05/18/21 05/18/21 Range/Units 21:09 21:09 21:09 WBC (4.0-10.5) K/mm3 RBC (4.1-5.4) M/mm3 Hgb (12.0-16.0) gm/dl Hct (35-47) % MCV (78-100) fl MCH (26-32) pg MCHC (32-36) g/dl RDW (11.5-14.0) % Plt Count (150-450) K/mm3 MPV (7.5-11.0) fl Gran % (36.0-66.0) % Eos # (Auto) (0-0.5) Absolute Lymphs (auto) (1.0-4.6) Absolute Monos (auto) (0.0-1.3) Lymphocytes % (24.0-44.0) % Monocytes % (0.0-12.0) % Eosinophils % (0.00-5.0) % Basophils % (0.0-0.4) % Absolute Granulocytes (1.4-6.9) Basophils # (0-0.4) D-Dimer 564 H* (215-500) ng/mL Sodium 141 (137-145) mmol/L Potassium 3.5 (3.5-5.1) mmol/L Chloride 102 (98-107) mmol/L Carbon Dioxide 29 (22-30) mmol/L Anion Gap 13.4 (5-15) MEQ/L BUN 11 (7-17) mg/dL Creatinine 0.75 (0.52-1.04) mg/dL Estimated GFR > 60.0 ML/MIN Glucose 102 (74-106) mg/dL Calcium 9.4 (8.4-10.2) mg/dL Total Bilirubin 0.30 (0.2-1.3) mg/dL AST 25 (14-36) U/L ALT 19 (0-35) U/L Alkaline Phosphatase 111 (38-126) U/L Troponin I 0.022 (0.000-0.034) ng/mL NT-Pro-B Natriuret Pep (0-450) pg/mL Serum Total Protein 7.2 (6.3-8.2) g/dL Albumin 4.6 (3.5-5.0) g/dL Influenza Type A Ag (NEGATIVE) Influenza Type B Ag (NEGATIVE) RSV (PCR) (Negative) SARS-CoV-2 (PCR) (NEGATIVE) 05/18/21 Range/Units 21:09 WBC 6.4 (4.0-10.5) K/mm3 RBC 4.80 (4.1-5.4) M/mm3 Hgb 13.8 (12.0-16.0) gm/dl Hct 41.8 (35-47) % MCV 87.1 (78-100) fl MCH 28.8 (26-32) pg MCHC 33.0 (32-36) g/dl RDW 13.8 (11.5-14.0) % Plt Count 210 (150-450) K/mm3 MPV 11.1 H (7.5-11.0) fl Gran % 54.1 (36.0-66.0) % Eos # (Auto) 0.36 (0-0.5) Absolute Lymphs (auto) 1.97 (1.0-4.6) Absolute Monos (auto) 0.61 (0.0-1.3) Lymphocytes % 30.6 (24.0-44.0) % Monocytes % 9.5 (0.0-12.0) % Eosinophils % 5.6 H (0.00-5.0) % Basophils % 0.2 (0.0-0.4) % Absolute Granulocytes 3.48 (1.4-6.9) Basophils # 0.01 (0-0.4) D-Dimer (215-500) ng/mL Sodium (137-145) mmol/L Potassium (3.5-5.1) mmol/L Chloride (98-107) mmol/L Carbon Dioxide (22-30) mmol/L Anion Gap (5-15) MEQ/L BUN (7-17) mg/dL Creatinine (0.52-1.04) mg/dL Estimated GFR ML/MIN Glucose (74-106) mg/dL Calcium (8.4-10.2) mg/dL Total Bilirubin (0.2-1.3) mg/dL AST (14-36) U/L ALT (0-35) U/L Alkaline Phosphatase (38-126) U/L Troponin I (0.000-0.034) ng/mL NT-Pro-B Natriuret Pep (0-450) pg/mL Serum Total Protein (6.3-8.2) g/dL Albumin (3.5-5.0) g/dL Influenza Type A Ag (NEGATIVE) Influenza Type B Ag (NEGATIVE) RSV (PCR) (Negative) SARS-CoV-2 (PCR) (NEGATIVE) - Progress Progress: improved Air Movement: good Progress Note: Radiologist notified me that patient has multiple lung nodules. Some are in creasing in size and there is a new nodule observed. He is concerned with the possibility of metastatic cancer. Patient has left breast pain. She has not had a mammogram in over 2 years. Patient states breast cancer runs in her family. Case discussed with Dr. Whiting who advises keeping patient in the hospital for further work-up. Plan of care discussed with patient. She agrees to admission [facility] for further evaluation and treatment. Troponin #2 pending. Covid test pending. 05/19/21 00:24 Covid test negative. 05/19/21 01:33 Initial troponin 0 0.022. Follow-up troponin 0 0.025. Patient still experiencing chest pain. We will admit patient for cardiac rule out. Portions of this note were created with voice recognition technology. There may be grammatical, spelling, punctuation or sound alike errors 05/19/21 01:34 Blood Culture(s) Obtained: No Antibiotics given: No Discussed with : Mario Will see patient in: hospital (observation) Counseled pt/family regarding: lab results, diagnosis, need for follow-up, rad results - Departure Departure Disposition: Observation Clinical Impression: Chest pain, ACS (acute coronary syndrome), Multiple lung nodules Condition: Stable Critical Care Time: No Referrals: ERICA ROQUE [Primary Care Provider] - Follow up/PCP as directed
[2021-05-19] MEDS ORDERED: MORPHINE SULFATE 4 MG INJ IV ONE (00:18)
[2021-05-19] MEDS ORDERED: MORPHINE SULFATE 4 MG INJ ONE (00:22)
[2021-05-19 01:16] LABS: INFLUENZA A NEGATIVE (NEGATIVE); INFLUENZA B NEGATIVE (NEGATIVE); RESPIRATORY SYNCTIAL VIRUS NEGATIVE (Negative); SARS-CoV-2 Xpert Express NEGATIVE (NEGATIVE)
[2021-05-19] MEDS ORDERED: NITRO-BID 2% UD PACKETS TOP ONE (01:35)
[2021-05-19] MEDS ORDERED: NITRO-BID 2% UD PACKETS ONE (01:36)
[2021-05-19] MEDS ORDERED: MAALOX ES 30 ML UNIT DOSE PO PRN (01:59)
[2021-05-19] MEDS ORDERED: TYLENOL 325 MG PO PRN (01:59)
[2021-05-19] MEDS ORDERED: MILK OF MAGNESIA 30 ML PO PRN (01:59)
[2021-05-19] MEDS ORDERED: Zofran 4 MG/2 ML VIAL IV PRN (01:59)
[2021-05-19] MEDS ORDERED: Senokot-S Tablet PO PRN (01:59)
[2021-05-19 02:04] VITALS: O2SAT 97
[2021-05-19] MEDS ORDERED: PROVENTIL 2.5 MG/3 ML NEB IH PRN (05:30)
[2021-05-19 06:55] LABS: Risk Ratio 3.9
--- NOTE | 2021-05-19 08:54 | XRAY ---
Indication: Short of breath and chest pain. Elevated d-dimer. Multiple contiguous axial images obtained through the chest using 80 cc Isovue 370 contrast and PE protocol. Comparison: April 22, 2020. There is good opacification of the pulmonary arteries to include the lobar and segmental branches. No pulmonary embolus. Heart not enlarged again with left Port-A-Cath. Aorta is normal in course and caliber. No pathologic mediastinal/hilar lymphadenopathy. Lungs again demonstrates scattered subsegmental atelectasis/scarring. Left lower lobe demonstrates a 8 mm noncalcified nodule, previously 10 mm. No infiltrate, effusion, or pneumothorax. Bony thorax intact. Limited upper abdomen again demonstrates fatty liver and cholecystectomy clips. Impression: 1. Continued negative pulmonary embolus. No new/acute cardiopulmonary abnormalities. 2. Smaller subcentimeter left lower lobe noncalcified nodule favored to be benign. 3. Incidental fatty liver. Comment: Preliminary interpretation made by [facility]. No critical discrepancy.
--- NOTE | 2021-05-19 08:56 | XRAY ---
Indication: Chest pain. Comparison: April 22, 2020. Portable chest slightly less inflated again with scattered bilateral subsegmental atelectasis/scarring and mild right hemidiaphragm elevation. Heart not enlarged again with left Port-A-Cath. Bony thorax intact. No new/acute abnormalities.
--- NOTE | 2021-05-19 09:05 | PCM.SSS ---
History of Present Illness - Chief Complaint Chief Complaint: ACS, Chest pain History of Present Illness: is a 45 year old female pt of mine from [facility] with multiple medical issues including DM, chronic hypoxemic respiratory failure, migraine, peripheral neuropathy, depression, port in place, dissociative convulsions, goiter, TIA who was admitted through ER with chest pain. On CT she was found to have multiple lung nodules, one was new, and the radiologist was concerned and called the ER doctor to ensure patient is worked up for cancer/metastatic disease (the preliminary report does not mention this). Pt started feeling "not right" yesterday over all. She has had L breast pain x 3d, burjing to the nipple that raidated to the upper chest. It's "uncomfortable." Then yesterday L chest pain started, stabbing 12/11, radiating to L jaw. Denies diaphoresis, nausea, or palpitations. Did have SOB. Has also had increased cough x 1 mo, nonproductive. No fever. Increased LE edema x 1 mo. Has a question of syncope x2 in the past 1 mo, but both episodes she described as her sitting in the chair and her SO waking her up and she didn't realize she was "out." C/o new daily headaches that are worsening, in the occipital area and behind her eyes. Can start in the morning and last all day or start later in the evening. -11/11. Medications & Allergies Home Medications: Home Medication List Levothyroxine Sodium 100 Mcg [Synthroid 100 Mcg] 100 mcg PO QAM 09/27/14 [History Confirmed 05/19/21] Simvastatin [Zocor] 20 mg PO HS 09/27/14 [History Confirmed 05/19/21] Clopidogrel Bisulfate 75 mg [PLAVIX 75 MG Tablet] 75 mg PO DAILY 04/05/15 [History Confirmed 05/19/21] Bumetanide 1 mg [Bumex 1 mg] 1 mg PO DAILY #30 tablet 10/02/15 [Rx Confirmed 05/19/21] Diazepam 5 mg [Valium 5 MG] 10 mg PO TID PRN 02/14/16 [History Confirmed 05/18/21] Albuterol Sulfate [Ventolin Hfa] 2 puff IH QID 12/21/16 [History Confirmed 05/19/21] Loratadine 10 mg [Claritin 10 mg] 10 mg PO BID 07/30/17 [History Confirmed 05/19/21] Magnesium Oxide 400 mg PO BID 09/10/17 [History Confirmed 05/19/21] Baclofen 10 mg [Lioresal 10 mg] 10 mg PO TID #30 tablet 07/25/18 [Rx Confirmed 05/19/21] Ergocalciferol (Vitamin D2) [Vitamin D2] 50,000 units PO WEEKLY 01/21/19 [History Confirmed 05/19/21] Propranolol HCl [Propranolol HCl ER] 80 mg PO HS 01/21/19 [History Confirmed 05/19/21] Gabapentin 800 mg PO QID #120 tablet 01/24/19 [Rx Confirmed 05/19/21] Diltiazem HCl [Cartia Xt] 180 mg PO DAILY 04/22/20 [History Confirmed 05/19/21] Hydroxyzine HCl 25 mg [Atarax 25 mg] 25 mg PO QID PRN 04/22/20 [History Confirmed 05/19/21] Diphenhydramine HCl 25 mg [Benadryl 25 mg Capsule] 25 mg PO Q8H PRN 11/30/20 [History Confirmed 05/18/21] Montelukast Sodium 10 mg [Singulair 10 MG] 10 mg PO QHS 05/19/21 [History Confirmed 05/19/21] Allergies/Adverse Reactions: Allergies Allergy/AdvReac Type Severity Reaction Status Date / Time aspirin Allergy Mild Nausea and Verified 05/19/21 01:58 Vomiting codeine [Codeine] Allergy Mild Itching Verified 05/19/21 01:58 Penicillins Allergy Mild Nausea and Verified 05/19/21 01:58 Vomiting promethazine HCl Allergy Mild tremors Verified 05/19/21 01:58 [From Phenergan] prednisolone Allergy Verified 05/19/21 01:58 clindamycin AdvReac Intermediate Hives Verified 05/19/21 01:58 fluoxetine HCl [From Prozac] AdvReac Intermediate Verified 05/19/21 01:58 sulfamethoxazole AdvReac Intermediate Swelling Verified 05/19/21 01:58 [From Bactrim] steroid from breathing Allergy Mild Blisters Uncoded 12/09/20 17:10 treatment - Past Medical History Past Medical History: Yes Neurological History: Peripheral Neuropathy, Seizures, Stroke ENT History: No Pertinent History Cardiac History: High Cholesterol, Hypertension Respiratory History: COPD Endocrine Medical History: Diabetes Type II, Hypothyroidism Musculoskelatal History: Arthritis GI Medical History: GERD, Hernia, Ulcer History: No Pertinent History Pyscho-Social History: Anxiety, Bipolar, Depression, Panic Disorder Reproductive Disorders: Endometriosis Comment: CVA 2018. 4 years since last seizure. Mitral valve prolapse with regurgitation - Female History Are you now?: No - Past Surgical History Past Surgical History: Yes Neuro Surgical History: No Pertinent History Cardiac History: Cardiac Catheterization Respiratory Surgery: No Pertinent History GI Surgical History: Appendectomy, Cholecystectomy, Hernia Repair Genitourinary Surgical Hx: No Pertinent History Musculskeletal Surgical Hx: Joint Replacement, Orthopedic Surgery Female Surgical History: Hysterectomy, Dilation & Curettage Other Surgical History: torn miniscus and implant-RT KNEE" partial scope replacement", oral surgery, melanoma removed for face three times, port placement twice with one removal. - Social History Smoking Status: Former smoker How long have you smoked: 12 years Exposure to second hand smoke: Yes Alcohol: None Drug Use: none Significant Family History: no pertinent family hx, heart disease, diabetes, hypertension - Physical Exam Vital Signs: Vital Signs - 24 hr Temp Pulse Pulse Resp BP Pulse Ox 05/19/21 07:30 98.4 F 52 L 18 87/55 97 05/19/21 04:53 83 18 97 05/19/21 02:09 97.5 F 63 18 109/72 97 05/19/21 02:03 97.5 F 63 18 109/72 97 05/19/21 01:36 99 05/19/21 01:04 64 16 121/73 95 05/19/21 00:06 73 22 103/66 100 05/18/21 23:05 18 149/101 05/18/21 22:00 72 18 110/71 99 05/18/21 21:39 83 14 124/84 99 05/18/21 20:55 99 05/18/21 20:40 97.6 F 82 80 20 131/87 98 General Appearance: no apparent distress, alert Neurologic Exam: oriented x 3, cooperative Eye Exam: eyes nml inspection Ears, Nose, Throat Exam: moist mucous membranes Neck Exam: normal inspection, No non-tender (very mild generalized ttp), No lymphadenopathy Respiratory Exam: normal breath sounds, lungs clear, prolonged expirations, No crackles/rales, No rhonchi, No wheezing Cardiovascular Exam: regular rate/rhythm, normal heart sounds, No murmur Gastrointestinal/Abdomen Exam: soft, normal bowel sounds, tenderness (RLQ, suprapubic), No distention, No mass, No guarding, No rebound Back Exam: normal inspection, No rash Extremity Exam: normal inspection, pedal edema (trace ankle edema bilat) Skin Exam: normal color, warm, dry, No rash Additional Findings: 05/19/21 09:13 Breast exam: bilat breasts normal in appearance, no masses, nipples normal in appearance. no supraclaviular or axillary lymphadenopathy. There is mild tenderness on the left, generalized. no skin changes bilat. Results - Labs Lab/Micro Results: Lab Results-Last 24 Hours 05/18/21 05/18/21 05/18/21 Range/Units 21:09 21:09 21:09 WBC 6.4 (4.0-10.5) K/mm3 RBC 4.80 (4.1-5.4) M/mm3 Hgb 13.8 (12.0-16.0) gm/dl Hct 41.8 (35-47) % MCV 87.1 (78-100) fl MCH 28.8 (26-32) pg MCHC 33.0 (32-36) g/dl RDW 13.8 (11.5-14.0) % Plt Count 210 (150-450) K/mm3 MPV 11.1 H (7.5-11.0) fl Gran % 54.1 (36.0-66.0) % Eos # (Auto) 0.36 (0-0.5) Absolute Lymphs (auto) 1.97 (1.0-4.6) Absolute Monos (auto) 0.61 (0.0-1.3) Lymphocytes % 30.6 (24.0-44.0) % Monocytes % 9.5 (0.0-12.0) % Eosinophils % 5.6 H (0.00-5.0) % Basophils % 0.2 (0.0-0.4) % Absolute Granulocytes 3.48 (1.4-6.9) Basophils # 0.01 (0-0.4) D-Dimer 564 H* (215-500) ng/mL Sodium 141 (137-145) mmol/L Potassium 3.5 (3.5-5.1) mmol/L Chloride 102 (98-107) mmol/L Carbon Dioxide 29 (22-30) mmol/L Anion Gap 13.4 (5-15) MEQ/L BUN 11 (7-17) mg/dL Creatinine 0.75 (0.52-1.04) mg/dL Estimated GFR > 60.0 ML/MIN Glucose 102 (74-106) mg/dL POC Glucometer (74 to 106) mg/dL Calcium 9.4 (8.4-10.2) mg/dL Total Bilirubin 0.30 (0.2-1.3) mg/dL AST 25 (14-36) U/L ALT 19 (0-35) U/L Alkaline Phosphatase 111 (38-126) U/L Troponin I (0.000-0.034) ng/mL NT-Pro-B Natriuret Pep (0-450) pg/mL Serum Total Protein 7.2 (6.3-8.2) g/dL Albumin 4.6 (3.5-5.0) g/dL Triglycerides (30-150) mg/dL Cholesterol (50-200) mg/dL LDL Cholesterol (30-100) mg/dL HDL Cholesterol (40-60) mg/dL Heart Disease Risk Ratio Influenza Type A Ag (NEGATIVE) Influenza Type B Ag (NEGATIVE) RSV (PCR) (Negative) SARS-CoV-2 (PCR) (NEGATIVE) 05/18/21 05/18/21 05/19/21 Range/Units 21:09 21:10 00:32 WBC (4.0-10.5) K/mm3 RBC (4.1-5.4) M/mm3 Hgb (12.0-16.0) gm/dl Hct (35-47) % MCV (78-100) fl MCH (26-32) pg MCHC (32-36) g/dl RDW (11.5-14.0) % Plt Count (150-450) K/mm3 MPV (7.5-11.0) fl Gran % (36.0-66.0) % Eos # (Auto) (0-0.5) Absolute Lymphs (auto) (1.0-4.6) Absolute Monos (auto) (0.0-1.3) Lymphocytes % (24.0-44.0) % Monocytes % (0.0-12.0) % Eosinophils % (0.00-5.0) % Basophils % (0.0-0.4) % Absolute Granulocytes (1.4-6.9) Basophils # (0-0.4) D-Dimer (215-500) ng/mL Sodium (137-145) mmol/L Potassium (3.5-5.1) mmol/L Chloride (98-107) mmol/L Carbon Dioxide (22-30) mmol/L Anion Gap (5-15) MEQ/L BUN (7-17) mg/dL Creatinine (0.52-1.04) mg/dL Estimated GFR ML/MIN Glucose (74-106) mg/dL POC Glucometer (74 to 106) mg/dL Calcium (8.4-10.2) mg/dL Total Bilirubin (0.2-1.3) mg/dL AST (14-36) U/L ALT (0-35) U/L Alkaline Phosphatase (38-126) U/L Troponin I 0.022 0.025 (0.000-0.034) ng/mL NT-Pro-B Natriuret Pep 31.3 (0-450) pg/mL Serum Total Protein (6.3-8.2) g/dL Albumin (3.5-5.0) g/dL Triglycerides (30-150) mg/dL Cholesterol (50-200) mg/dL LDL Cholesterol (30-100) mg/dL HDL Cholesterol (40-60) mg/dL Heart Disease Risk Ratio Influenza Type A Ag (NEGATIVE) Influenza Type B Ag (NEGATIVE) RSV (PCR) (Negative) SARS-CoV-2 (PCR) (NEGATIVE) 05/19/21 05/19/21 05/19/21 Range/Units 00:37 03:33 06:08 WBC (4.0-10.5) K/mm3 RBC (4.1-5.4) M/mm3 Hgb (12.0-16.0) gm/dl Hct (35-47) % MCV (78-100) fl MCH (26-32) pg MCHC (32-36) g/dl RDW (11.5-14.0) % Plt Count (150-450) K/mm3 MPV (7.5-11.0) fl Gran % (36.0-66.0) % Eos # (Auto) (0-0.5) Absolute Lymphs (auto) (1.0-4.6) Absolute Monos (auto) (0.0-1.3) Lymphocytes % (24.0-44.0) % Monocytes % (0.0-12.0) % Eosinophils % (0.00-5.0) % Basophils % (0.0-0.4) % Absolute Granulocytes (1.4-6.9) Basophils # (0-0.4) D-Dimer (215-500) ng/mL Sodium (137-145) mmol/L Potassium (3.5-5.1) mmol/L Chloride (98-107) mmol/L Carbon Dioxide (22-30) mmol/L Anion Gap (5-15) MEQ/L BUN (7-17) mg/dL Creatinine (0.52-1.04) mg/dL Estimated GFR ML/MIN Glucose (74-106) mg/dL POC Glucometer (74 to 106) mg/dL Calcium (8.4-10.2) mg/dL Total Bilirubin (0.2-1.3) mg/dL AST (14-36) U/L ALT (0-35) U/L Alkaline Phosphatase (38-126) U/L Troponin I 0.024 0.028 (0.000-0.034) ng/mL NT-Pro-B Natriuret Pep (0-450) pg/mL Serum Total Protein (6.3-8.2) g/dL Albumin (3.5-5.0) g/dL Triglycerides (30-150) mg/dL Cholesterol (50-200) mg/dL LDL Cholesterol (30-100) mg/dL HDL Cholesterol (40-60) mg/dL Heart Disease Risk Ratio Influenza Type A Ag NEGATIVE (NEGATIVE) Influenza Type B Ag NEGATIVE (NEGATIVE) RSV (PCR) NEGATIVE (Negative) SARS-CoV-2 (PCR) NEGATIVE (NEGATIVE) 05/19/21 05/19/21 Range/Units 06:08 06:33 WBC (4.0-10.5) K/mm3 RBC (4.1-5.4) M/mm3 Hgb (12.0-16.0) gm/dl Hct (35-47) % MCV (78-100) fl MCH (26-32) pg MCHC (32-36) g/dl RDW (11.5-14.0) % Plt Count (150-450) K/mm3 MPV (7.5-11.0) fl Gran % (36.0-66.0) % Eos # (Auto) (0-0.5) Absolute Lymphs (auto) (1.0-4.6) Absolute Monos (auto) (0.0-1.3) Lymphocytes % (24.0-44.0) % Monocytes % (0.0-12.0) % Eosinophils % (0.00-5.0) % Basophils % (0.0-0.4) % Absolute Granulocytes (1.4-6.9) Basophils # (0-0.4) D-Dimer (215-500) ng/mL Sodium (137-145) mmol/L Potassium (3.5-5.1) mmol/L Chloride (98-107) mmol/L Carbon Dioxide (22-30) mmol/L Anion Gap (5-15) MEQ/L BUN (7-17) mg/dL Creatinine (0.52-1.04) mg/dL Estimated GFR ML/MIN Glucose (74-106) mg/dL POC Glucometer 105 (74 to 106) mg/dL Calcium (8.4-10.2) mg/dL Total Bilirubin (0.2-1.3) mg/dL AST (14-36) U/L ALT (0-35) U/L Alkaline Phosphatase (38-126) U/L Troponin I (0.000-0.034) ng/mL NT-Pro-B Natriuret Pep (0-450) pg/mL Serum Total Protein (6.3-8.2) g/dL Albumin (3.5-5.0) g/dL Triglycerides 156 H (30-150) mg/dL Cholesterol 162 (50-200) mg/dL LDL Cholesterol 86 (30-100) mg/dL HDL Cholesterol 42 (40-60) mg/dL Heart Disease Risk Ratio 3.9 Influenza Type A Ag (NEGATIVE) Influenza Type B Ag (NEGATIVE) RSV (PCR) (Negative) SARS-CoV-2 (PCR) (NEGATIVE) - Radiology Impressions Radiology Exams & Impressions: Radiology Procedures Category Date Time Status CHEST 1 VIEW (PORTABLE) Stat Exams 05/18/21 20:53 Completed CHEST WITH CONTRAST [CT] Stat Exams 05/18/21 21:32 Completed - Other Procedures and Tests Respiratory Therapy 05/19/21 05:28 Oxygen NASAL CANNULA 4 lpm 05/20/21 05:00 EKG ONCE 05/20/21 07:00 Respiratory Therapy Assessment DAILY 05/21/21 05:00 EKG ONCE 05/22/21 05:00 EKG ONCE Assessment/Plan (1) Chest pain Current Visit: Yes Status: Chronic Qualifiers: Chest pain type: other chest pain Qualified Code(s): R07.89 - Other chest p ain; R07.8 - Other chest pain Assessment & Plan: After last 2 troponins are normal, will have ruled out for CO. Code(s): R07.9 - CHEST PAIN, UNSPECIFIED (2) Multiple lung nodules Current Visit: Yes Status: Acute Assessment & Plan: Will get CT abd/pelvis to start workup for possible malignancy; close f/u with foster winder (next week). (3) Breast pain, left Current Visit: Yes Status: Acute Assessment & Plan: mammogram next week. exam benign. Code(s): N64.4 - MASTODYNIA (4) New daily persistent headache Current Visit: Yes Status: Acute Assessment & Plan: MRI brain here. Code(s): G44.52 - NEW DAILY PERSISTENT HEADACHE (NDPH) (5) Syncope Current Visit: Yes Status: Suspected Qualifiers: Syncope type: unspecified Qualified Code(s): R55 - Syncope and collapse Assessment & Plan: vs just falling asleep without her knowledge. will workup. Code(s): R55 - SYNCOPE AND COLLAPSE (6) Edema Current Visit: Yes Status: Acute Qualifiers: Edema type: localized Qualified Code(s): R60.0 - Localized edema Assessment & Plan: will check echo; LE Code(s): R60.9 - EDEMA, UNSPECIFIED Hospital Summary - Hospital Course Hospital Course: Pt is 45 yo femal with multiple medical issues admitted for CP rule out, found to have multiple pulmonary nodules and also c/o new daily PORTER. Will be set up for CT abd/pelvis and mammogram outpatient, along with close f/u with Dr. Gutierres (due to radiologist's concern for malignancy in lungs). Will get MRI, echo, and carotid doppler in hospital for new PORTER and question of syncope recently. Discharge to home today if next two troponins are negative. - Vitals & Intake/Output Vital Signs: Vital Signs Temperature 98.4 F 05/19/21 07:30 Pulse Rate 52 L 05/19/21 07:30 Respiratory Rate 18 05/19/21 07:30 Blood Pressure 87/55 05/19/21 07:30 O2 Sat by Pulse Oximetry 97 05/19/21 07:30 Intake & Output: Intake & Output 05/16/21 05/17/21 05/18/21 05/19/21 11:59 11:59 11:59 11:59 Intake Total 580 Balance 580 Weight 96 kg - Lab Result Diagrams: 05/18/21 21:09 05/18/21 21:09 Lab Results-Last 24 Hrs: Lab Results-Last 24 Hours 05/18/21 05/18/21 05/18/21 Range/Units 21:09 21:09 21:09 WBC 6.4 (4.0-10.5) K/mm3 RBC 4.80 (4.1-5.4) M/mm3 Hgb 13.8 (12.0-16.0) gm/dl Hct 41.8 (35-47) % MCV 87.1 (78-100) fl MCH 28.8 (26-32) pg MCHC 33.0 (32-36) g/dl RDW 13.8 (11.5-14.0) % Plt Count 210 (150-450) K/mm3 MPV 11.1 H (7.5-11.0) fl Gran % 54.1 (36.0-66.0) % Eos # (Auto) 0.36 (0-0.5) Absolute Lymphs (auto) 1.97 (1.0-4.6) Absolute Monos (auto) 0.61 (0.0-1.3) Lymphocytes % 30.6 (24.0-44.0) % Monocytes % 9.5 (0.0-12.0) % Eosinophils % 5.6 H (0.00-5.0) % Basophils % 0.2 (0.0-0.4) % Absolute Granulocytes 3.48 (1.4-6.9) Basophils # 0.01 (0-0.4) D-Dimer 564 H* (215-500) ng/mL Sodium 141 (137-145) mmol/L Potassium 3.5 (3.5-5.1) mmol/L Chloride 102 (98-107) mmol/L Carbon Dioxide 29 (22-30) mmol/L Anion Gap 13.4 (5-15) MEQ/L BUN 11 (7-17) mg/dL Creatinine 0.75 (0.52-1.04) mg/dL Estimated GFR > 60.0 ML/MIN Glucose 102 (74-106) mg/dL POC Glucometer (74 to 106) mg/dL Calcium 9.4 (8.4-10.2) mg/dL Total Bilirubin 0.30 (0.2-1.3) mg/dL AST 25 (14-36) U/L ALT 19 (0-35) U/L Alkaline Phosphatase 111 (38-126) U/L Troponin I (0.000-0.034) ng/mL NT-Pro-B Natriuret Pep (0-450) pg/mL Serum Total Protein 7.2 (6.3-8.2) g/dL Albumin 4.6 (3.5-5.0) g/dL Triglycerides (30-150) mg/dL Cholesterol (50-200) mg/dL LDL Cholesterol (30-100) mg/dL HDL Cholesterol (40-60) mg/dL Heart Disease Risk Ratio Influenza Type A Ag (NEGATIVE) Influenza Type B Ag (NEGATIVE) RSV (PCR) (Negative) SARS-CoV-2 (PCR) (NEGATIVE) 05/18/21 05/18/21 05/19/21 Range/Units 21:09 21:10 00:32 WBC (4.0-10.5) K/mm3 RBC (4.1-5.4) M/mm3 Hgb (12.0-16.0) gm/dl Hct (35-47) % MCV (78-100) fl MCH (26-32) pg MCHC (32-36) g/dl RDW (11.5-14.0) % Plt Count (150-450) K/mm3 MPV (7.5-11.0) fl Gran % (36.0-66.0) % Eos # (Auto) (0-0.5) Absolute Lymphs (auto) (1.0-4.6) Absolute Monos (auto) (0.0-1.3) Lymphocytes % (24.0-44.0) % Monocytes % (0.0-12.0) % Eosinophils % (0.00-5.0) % Basophils % (0.0-0.4) % Absolute Granulocytes (1.4-6.9) Basophils # (0-0.4) D-Dimer (215-500) ng/mL Sodium (137-145) mmol/L Potassium (3.5-5.1) mmol/L Chloride (98-107) mmol/L Carbon Dioxide (22-30) mmol/L Anion Gap (5-15) MEQ/L BUN (7-17) mg/dL Creatinine (0.52-1.04) mg/dL Estimated GFR ML/MIN Glucose (74-106) mg/dL POC Glucometer (74 to 106) mg/dL Calcium (8.4-10.2) mg/dL Total Bilirubin (0.2-1.3) mg/dL AST (14-36) U/L ALT (0-35) U/L Alkaline Phosphatase (38-126) U/L Troponin I 0.022 0.025 (0.000-0.034) ng/mL NT-Pro-B Natriuret Pep 31.3 (0-450) pg/mL Serum Total Protein (6.3-8.2) g/dL Albumin (3.5-5.0) g/dL Triglycerides (30-150) mg/dL Cholesterol (50-200) mg/dL LDL Cholesterol (30-100) mg/dL HDL Cholesterol (40-60) mg/dL Heart Disease Risk Ratio Influenza Type A Ag (NEGATIVE) Influenza Type B Ag (NEGATIVE) RSV (PCR) (Negative) SARS-CoV-2 (PCR) (NEGATIVE) 05/19/21 05/19/21 05/19/21 Range/Units 00:37 03:33 06:08 WBC (4.0-10.5) K/mm3 RBC (4.1-5.4) M/mm3 Hgb (12.0-16.0) gm/dl Hct (35-47) % MCV (78-100) fl MCH (26-32) pg MCHC (32-36) g/dl RDW (11.5-14.0) % Plt Count (150-450) K/mm3 MPV (7.5-11.0) fl Gran % (36.0-66.0) % Eos # (Auto) (0-0.5) Absolute Lymphs (auto) (1.0-4.6) Absolute Monos (auto) (0.0-1.3) Lymphocytes % (24.0-44.0) % Monocytes % (0.0-12.0) % Eosinophils % (0.00-5.0) % Basophils % (0.0-0.4) % Absolute Granulocytes (1.4-6.9) Basophils # (0-0.4) D-Dimer (215-500) ng/mL Sodium (137-145) mmol/L Potassium (3.5-5.1) mmol/L Chloride (98-107) mmol/L Carbon Dioxide (22-30) mmol/L Anion Gap (5-15) MEQ/L BUN (7-17) mg/dL Creatinine (0.52-1.04) mg/dL Estimated GFR ML/MIN Glucose (74-106) mg/dL POC Glucometer (74 to 106) mg/dL Calcium (8.4-10.2) mg/dL Total Bilirubin (0.2-1.3) mg/dL AST (14-36) U/L ALT (0-35) U/L Alkaline Phosphatase (38-126) U/L Troponin I 0.024 0.028 (0.000-0.034) ng/mL NT-Pro-B Natriuret Pep (0-450) pg/mL Serum Total Protein (6.3-8.2) g/dL Albumin (3.5-5.0) g/dL Triglycerides (30-150) mg/dL Cholesterol (50-200) mg/dL LDL Cholesterol (30-100) mg/dL HDL Cholesterol (40-60) mg/dL Heart Disease Risk Ratio Influenza Type A Ag NEGATIVE (NEGATIVE) Influenza Type B Ag NEGATIVE (NEGATIVE) RSV (PCR) NEGATIVE (Negative) SARS-CoV-2 (PCR) NEGATIVE (NEGATIVE) 05/19/21 05/19/21 Range/Units 06:08 06:33 WBC (4.0-10.5) K/mm3 RBC (4.1-5.4) M/mm3 Hgb (12.0-16.0) gm/dl Hct (35-47) % MCV (78-100) fl MCH (26-32) pg MCHC (32-36) g/dl RDW (11.5-14.0) % Plt Count (150-450) K/mm3 MPV (7.5-11.0) fl Gran % (36.0-66.0) % Eos # (Auto) (0-0.5) Absolute Lymphs (auto) (1.0-4.6) Absolute Monos (auto) (0.0-1.3) Lymphocytes % (24.0-44.0) % Monocytes % (0.0-12.0) % Eosinophils % (0.00-5.0) % Basophils % (0.0-0.4) % Absolute Granulocytes (1.4-6.9) Basophils # (0-0.4) D-Dimer (215-500) ng/mL Sodium (137-145) mmol/L Potassium (3.5-5.1) mmol/L Chloride (98-107) mmol/L Carbon Dioxide (22-30) mmol/L Anion Gap (5-15) MEQ/L BUN (7-17) mg/dL Creatinine (0.52-1.04) mg/dL Estimated GFR ML/MIN Glucose (74-106) mg/dL POC Glucometer 105 (74 to 106) mg/dL Calcium (8.4-10.2) mg/dL Total Bilirubin (0.2-1.3) mg/dL AST (14-36) U/L ALT (0-35) U/L Alkaline Phosphatase (38-126) U/L Troponin I (0.000-0.034) ng/mL NT-Pro-B Natriuret Pep (0-450) pg/mL Serum Total Protein (6.3-8.2) g/dL Albumin (3.5-5.0) g/dL Triglycerides 156 H (30-150) mg/dL Cholesterol 162 (50-200) mg/dL LDL Cholesterol 86 (30-100) mg/dL HDL Cholesterol 42 (40-60) mg/dL Heart Disease Risk Ratio 3.9 Influenza Type A Ag (NEGATIVE) Influenza Type B Ag (NEGATIVE) RSV (PCR) (Negative) SARS-CoV-2 (PCR) (NEGATIVE) - Radiology Exams Ordered Rad Exams-Entire Visit: Radiology Procedures Category Date Time Status CHEST 1 VIEW (PORTABLE) Stat Exams 05/18/21 20:53 Completed CHEST WITH CONTRAST [CT] Stat Exams 05/18/21 21:32 Completed - Procedures and Test Procedures and Tests throughout Hospitalization: Therapy Orders & Screens 05/19/21 01:59 EKG [id number],QAMX3,PRN Comment: 05/19/21 02:25 RT Screen per Nursing Assess ONCE Comment: Protocol Order Physician Instructions: Greater than 3 points order RT Admission Screen Reason For Exam: Triggered on Admission Diagnosis: ACS, Chest pain Diagnosis: ACS, Chest pain Pneumonia: No Home O2: Yes Asthma: Yes CHF: No Home CPAP/BIPAP: No Home Nebs/MDI: Yes Total Points: 14 05/19/21 04:53 EKG ONCE Comment: Diagnosis: ACS, Chest pain 05/19/21 05:28 Oxygen NASAL CANNULA 4 lpm Comment: Diagnosis: ACS, Chest pain 05/20/21 05:00 EKG ONCE Comment: Diagnosis: ACS, Chest pain 05/20/21 07:00 Respiratory Therapy Assessment DAILY Comment: Diagnosis: ACS, Chest pain 05/21/21 05:00 EKG ONCE Comment: Diagnosis: ACS, Chest pain 05/22/21 05:00 EKG ONCE Comment: Diagnosis: ACS, Chest pain - Discharge Disposition: Home, Self-Care Condition: Stable Prescriptions: No Action Simvastatin [Zocor] 20 mg PO HS Levothyroxine Sodium 100 Mcg [Synthroid 100 Mcg] 100 mcg PO QAM Clopidogrel Bisulfate 75 mg [PLAVIX 75 MG Tablet] 75 mg PO DAILY Bumetanide 1 mg [Bumex 1 mg] 1 mg PO DAILY #30 tablet Diazepam 5 mg [Valium 5 MG] 10 mg PO TID PRN PRN Reason: Anxiety Albuterol Sulfate [Ventolin Hfa] 2 puff IH QID Loratadine 10 mg [Claritin 10 mg] 10 mg PO BID Magnesium Oxide 400 mg PO BID Baclofen 10 mg [Lioresal 10 mg] 10 mg PO TID #30 tablet Propranolol HCl [Propranolol HCl ER] 80 mg PO HS Ergocalciferol (Vitamin D2) [Vitamin D2] 50,000 units PO WEEKLY Gabapentin 800 mg PO QID #120 tablet Hydroxyzine HCl 25 mg [Atarax 25 mg] 25 mg PO QID PRN PRN Reason: Itching Diltiazem HCl [Cartia Xt] 180 mg PO DAILY Diphenhydramine HCl 25 mg [Benadryl 25 mg Capsule] 25 mg PO Q8H PRN PRN Reason: Itching Montelukast Sodium 10 mg [Singulair 10 MG] 10 mg PO QHS Follow up with: ERICA ROQUE [Primary Care Provider] -
[2021-05-19] MEDS ORDERED: ATARAX 25 MG PO PRN (09:19)
[2021-05-19] MEDS ORDERED: Valium 5 MG PO PRN (09:19)
[2021-05-19] MEDS ORDERED: BENADRYL 25 MG CAPSULE PO PRN (09:19)
[2021-05-19] MEDS ORDERED: NON-FORMULARY ITEM (Gabapentin [Gabapentin] 800 MG Tablet) PO SCH (10:00)
[2021-05-19] MEDS ORDERED: Cardizem CD 180 MG PO SCH (10:00)
[2021-05-19] MEDS ORDERED: LIORESAL 10 MG PO SCH (10:00)
[2021-05-19] MEDS ORDERED: BUMEX 1 MG PO SCH (10:00)
[2021-05-19] MEDS ORDERED: CLARITIN 10 MG PO SCH (10:00)
[2021-05-19] MEDS ORDERED: PLAVIX 75 MG Tablet PO SCH (10:00)
[2021-05-19] MEDS ORDERED: MAG-OX 400 PO SCH (10:00)
[2021-05-19] MEDS ORDERED: SYNTHROID 100 MCG PO SCH (10:00)
[2021-05-19] MEDS: Neurontin 400 MG PO SCH ×2 (11:01→13:14)
--- NOTE | 2021-05-19 12:11 | XRAY ---
Indication: Dizziness. Two-dimensional sonogram and color Doppler imaging of the carotid arteries of the neck performed. Comparison: September 12, 2017. Examination of the right carotid circulation again demonstrates widely patent common carotid, bulb, internal carotid, and external carotid arteries. PSV of the CCA is 79 cm/s. PSV of the ICA is 76 cm/s. ICA/CCA ratio is 1.0. Normal antegrade vertebral artery flow. Examination of the left carotid circulation also demonstrates widely patent common carotid, bulb, internal carotid, and external carotid arteries. PSV of the CCA is 80 cm/s. PSV of the ICA is 85 cm/s. ICA/CCA ratio is 1.1. Normal antegrade vertebral artery flow. Impression: Left and right carotid arteries of the neck remain widely patent. Velocity measurements and ratios remain negative for hemodynamically significant flow limiting stenosis.
--- NOTE | 2021-05-19 12:15 | XRAY ---
Indication: Occipital migraine for 4 days. History seizures. Sagittal, coronal, and axial MRI brain performed using pre-and post T1, T2, FLAIR, diffusion, and ADC sequences. 20 cc Dotarem contrast used. Comparison: October 11, 2017. Ventriculosulcal pattern is symmetric. Stable tiny degenerative micro-ischemia signal left periventricular white matter anteriorly. No acute intracranial hemorrhage, abnormal extra-axial fluid collection, or mass effect. Diffusion images are negative for restricted signal. No evidence for mesial temporal sclerosis. Following gadolinium, there is no abnormal enhancing intra or extra-axial mass/lesion. Fourth ventricle is midline without hydrocephalus. 7/8 cranial nerve complex bilaterally symmetric. Normal flow void signal within the major intracerebral circulation. Normal appearing craniocervical junction and sella turcica. Paranasal sinuses are clear. Impression: Continued negative MRI brain with contrast exam.
[2021-05-19 12:54] VITALS: PULSE 56
[2021-05-19 13:58] VITALS: BP 91/54
[2021-05-19] MEDS ORDERED: PROPRANOLOL HCL 80 MG PO SCH (22:00)
[2021-05-19] MEDS ORDERED: NON-FORMULARY ITEM PO SCH (22:00)
[2021-05-19] MEDS ORDERED: Singulair 10 MG PO SCH (22:00)
[2021-05-19] MEDS ORDERED: ZOCOR 20MG PO SCH (22:00)
== END 2021-05-19 15:52 | disposition home or self-care (01) ==
LOC: ED 20:37 → MED SURG 05-19 01:41
PROVIDERS: ADMIT Family Medicine; ATTEND Family Medicine
DX: R07.9 Chest pain, unspecified (principal); R91.8 Other nonspecific abnormal finding of lung field; I24.9 Acute ischemic heart disease, unspecified; N64.4 Mastodynia; R55 Syncope and collapse; R60.0 Localized edema; J96.11 Chronic respiratory failure with hypoxia; G44.52 New daily persistent headache (NDPH); J44.9 Chronic obstructive pulmonary disease, unspecified; E78.00 Pure hypercholesterolemia, unspecified; I10 Essential (primary) hypertension; E11.9 Type 2 diabetes mellitus without complications; E03.9 Hypothyroidism, unspecified; Z79.899 Other long term (current) drug therapy; Z99.81 Dependence on supplemental oxygen; Z20.828 Contact with and (suspected) exposure to other viral communicable diseases
CPT/HCPCS: 0241U; 36000; 36415; 70553; 71045; 71260; 80053; 80061; 82947; 83721; 83880; 84484; 85025; 85379; 87040; 93005; 93041; 93306; 93880; 94760; 96374; 99285; G0378; J1642; J2270; A9270-GY

== ENCOUNTER 2021-08-11 22:18 | Emergency (ER) | payer OTHER ==
--- NOTE | 2021-08-11 22:25 | ERPHSYRPT ---
- History of Present Illness Time Seen by Provider: 08/11/21 22:24 Source: patient Exam Limitations: no limitations Physician History: This is a 45-year-old white female patient of Dr. Henok Joés who is not oxygen dependent patient with COPD using 4 L oxygen via nasal cannula all day and presents with 2 to 3-week history of intermittent coughing with symptoms worsening in the last 2 to 3 days. Family members that she has been exposed to have relatively recently been diagnosed with influenza a. Patient has a history of anxiety/panic disorder, seasonal allergies, hypertension, gastroesophageal reflux disease, elevated cholesterol, hypothyroidism, mitral valve prolapse with regurgitation and a CVA in 2018. Patient has some mild shortness of breath with coughing spells. She denies chest pain. She has no abdominal pain. She denies nausea vomiting or diarrhea. Patient is a former smoker. She has not had a fever. Timing/Duration: week(s) (2 to 3 weeks), intermittent, worse (In the last few days) Cough Quality/Degree: mild (To moderate) Possible Cause: occasional episodes Modifying Factors: Improves With: coughing Associated Symptoms: cough, shortness of breath Allergies/Adverse Reactions: aspirin Allergy (Mild, Verified 08/11/21 22:34) Nausea and Vomiting codeine [Codeine] Allergy (Mild, Verified 08/11/21 22:34) Itching Penicillins Allergy (Mild, Verified 08/11/21 22:34) Nausea and Vomiting promethazine HCl [From Phenergan] Allergy (Mild, Verified 08/11/21 22:34) tremors prednisolone Allergy (Verified 08/11/21 22:34) clindamycin Adverse Reaction (Intermediate, Verified 08/11/21 22:34) Hives fluoxetine HCl [From Prozac] Adverse Reaction (Intermediate, Verified 08/11/21 22:34) confusion , "jumped out of a moving truck" sulfamethoxazole [From Bactrim] Adverse Reaction (Intermediate, Verified 08/11/21 22:34) Swelling steroid from breathing treatment Allergy (Mild, Uncoded 08/11/21 22:34) Blisters oral steroid Home Medications: Levothyroxine Sodium 100 Mcg [Synthroid 100 Mcg] 100 mcg PO QAM 09/27/14 [History] Simvastatin [Zocor] 20 mg PO HS 09/27/14 [History] Clopidogrel Bisulfate 75 mg [PLAVIX 75 MG Tablet] 75 mg PO DAILY 04/05/15 [History] Diazepam 5 mg [Valium 5 MG] 10 mg PO TID PRN 02/14/16 [History] Albuterol Sulfate [Ventolin Hfa] 2 puff IH QID 12/21/16 [History] Loratadine 10 mg [Claritin 10 mg] 10 mg PO BID 07/30/17 [History] Magnesium Oxide 400 mg PO BID 09/10/17 [History] Ergocalciferol (Vitamin D2) [Vitamin D2] 50,000 units PO WEEKLY 01/21/19 [History] Propranolol HCl [Propranolol HCl ER] 80 mg PO HS 01/21/19 [History] Diltiazem HCl [Cartia Xt] 180 mg PO DAILY 04/22/20 [History] Hydroxyzine HCl 25 mg [Atarax 25 mg] 25 mg PO QID PRN 04/22/20 [History] Diphenhydramine HCl 25 mg [Benadryl 25 mg Capsule] 25 mg PO Q8H PRN 11/30/20 [History] Montelukast Sodium 10 mg [Singulair 10 MG] 10 mg PO QHS 05/19/21 [History] Hx Tetanus, Diphtheria Vaccination/Date Given: Yes Hx Influenza Vaccination/Date Given: Yes Hx Pneumococcal Vaccination/Date Given: No Travel Risk - International Travel Have you traveled outside of the country in past 3 weeks: No - Coronavirus Screening Are you exhibiting any of the following symptoms?: Yes Symptoms: Cough: New Onset, Shortness of Breath Close contact with a COVID-19 positive Pt in past 14-21 Days: No - Vaccine Status Have you recieved a Covid-19 vaccination: No - Review of Systems Constitutional: No Symptoms Eyes: No Symptoms Ears, Nose, & Throat: No Symptoms Respiratory: Cough, Dyspnea Cardiac: No Symptoms Abdominal/Gastrointestinal: No Symptoms Genitourinary Symptoms: No Symptoms Musculoskeletal: No Symptoms Skin: No Symptoms Neurological: No Symptoms Psychological: No Symptoms Endocrine: No Symptoms Hematologic/Lymphatic: No Symptoms - Past Medical History Pertinent Past Medical History: Yes Neurological History: Peripheral Neuropathy, Seizures, Stroke ENT History: No Pertinent History Cardiac History: High Cholesterol, Hypertension Respiratory History: COPD Endocrine Medical History: Diabetes Type II, Hypothyroidism Musculoskeletal History: Arthritis GI Medical History: GERD, Hernia, Ulcer History: No Pertinent History Psycho-Social History: Anxiety, Bipolar, Depression, Panic Disorder Female Reproductive Disorders: Endometriosis Other Medical History: CVA 2018. 4 years since last seizure. Mitral valve prolapse with regurgitation - Past Surgical History Past Surgical History: Yes Neuro Surgical History: No Pertinent History Cardiac: Cardiac Catheterization Respiratory: No Pertinent History Gastrointestinal: Appendectomy, Cholecystectomy, Hernia Repair Genitourinary: No Pertinent History Musculoskeletal: Joint Replacement, Orthopedic Surgery Female Surgical History: Hysterectomy, Dilation & Curettage Other Surgical History: torn miniscus and implant-RT KNEE" partial scope replacement", oral surgery, melanoma removed for face three times, port placement twice with one removal. - Social History Smoking Status: Former smoker How long have you smoked: 12 years Exposure to second hand smoke: Yes Alcohol Use: None Drug Use: none Patient Lives Alone: No Significant Family History: no pertinent family hx, heart disease, diabetes, hypertension - Nursing Vital Signs Nursing Vital Signs: Initial Vital Signs Temperature 97.3 F 08/11/21 22:19 Pulse Rate 67 08/11/21 22:19 Respiratory Rate 20 08/11/21 22:19 Blood Pressure 123/77 08/11/21 22:19 O2 Sat by Pulse Oximetry 100 08/11/21 22:19 Pain Scale Pain Intensity 0 - Physical Exam General Appearance: no apparent distress, alert, anxiety Eye Exam: PERRL/EOMI, eyes nml inspection Ears, Nose, Throat Exam: normal ENT inspection, moist mucous membranes Neck Exam: normal inspection, non-tender, supple, full range of motion Respiratory Exam: normal breath sounds, lungs clear, airway intact, No chest tenderness, No respiratory distress Cardiovascular Exam: regular rate/rhythm, normal heart sounds, normal peripheral pulses Gastrointestinal/Abdomen Exam: soft, normal bowel sounds, No tenderness Pelvic Exam: not done Rectal Exam: not done Back Exam: normal inspection, normal range of motion, No CVA tenderness Extremity Exam: normal inspection, normal range of motion, pelvis stable Neurologic Exam: alert, oriented x 3, cooperative, campaign fundraiser II-XII nml as tested, normal mood/affect Skin Exam: normal color, warm, dry Lymphatic Exam: No adenopathy SpO2 Interpretation: normal O2 Delivery: Nasal Cannula (Her usual 4 L oxygen) - Course Nursing assessment & vital signs reviewed: Yes Ordered Tests: Active Orders 24 hr Category Date Time Status CHEST 1 VIEW (PORTABLE) Stat Exams 08/11/21 22:28 Taken COVID AG-BINAX NOW RAPID TEST Stat Lab 08/11/21 22:40 Completed INFLUENZA A+B JOSH Stat Lab 08/11/21 22:40 Completed Lab/Rad Data: Laboratory Results 08/11/21 08/11/21 08/11/21 Range/Units 22:40 22:40 22:40 Influenza Type A Ag NEGATIVE (NEGATIVE) Influenza Type B Ag NEGATIVE (NEGATIVE) SARS-CoV-2 Ag (Rapid) NEGATIVE (NEGATIVE) Group A Strep Antibody NOT DETECTED (NEGATIVE) - Progress Progress: unchanged Air Movement: good Progress Note: 08/11/21 23:18 Chest x-ray shows no acute cardiopulmonary process. 08/11/21 23:18 Patient specifically stated that she can take injectable steroids without any issues but not oral steroids. Blood Culture(s) Obtained: No Antibiotics given: No Counseled pt/family regarding: lab results, diagnosis, need for follow-up, rad results - Departure Departure Disposition: Home Clinical Impression: Bronchitis Condition: Stable Critical Care Time: No Referrals: ERICA ROQUE [Primary Care Provider] - Follow up/PCP as directed Additional Instructions: Drink plenty of fluids. Take your medication as prescribed. Follow-up with your primary care physician for further evaluation and management.
[2021-08-11 23:02] LABS: COVID AG -BINAX NOW RAPID TEST NEGATIVE (NEGATIVE)
[2021-08-11 23:04] LABS: INFLUENZA A NEGATIVE (NEGATIVE); INFLUENZA B NEGATIVE (NEGATIVE)
[2021-08-11] MEDS ORDERED: HYDROCODONE-ACETAMIN 2.5-108/5 ML SOLUTION PO STA (23:19)
[2021-08-11] MEDS ORDERED: solu-MEDROL 125 MG, Sterile H2O 10 ml 2 ML IM ONE ×2 (23:19)
[2021-08-11] MEDS ORDERED: HYDROCODONE-ACETAMIN 2.5-108/5 ML SOLUTION ONE (23:24)
[2021-08-11] MEDS ORDERED: solu-MEDROL ONE (23:24)
[2021-08-11] MEDS ORDERED: Sterile H2O 10 ml IJ ONE (23:24)
[2021-08-11 23:34] VITALS: BP 110/66; PULSE 66; O2SAT 99
--- NOTE | 2021-08-12 09:00 | XRAY ---
Indication: Cough. Sinus congestion. Comparison: May 18, 2021. Portable chest is now clear again with chronic right hemidiaphragm elevation. Heart not enlarged again with left Port-A-Cath. Bony thorax intact. No new/acute findings. Impression: Nonacute chest with chronic features.
== END 2021-08-11 23:44 | disposition home or self-care (01) ==
LOC: ED 22:18
DX: J20.9 Acute bronchitis, unspecified (principal); J44.0 Chronic obstructive pulmonary disease with (acute) lower respiratory infection; Z99.81 Dependence on supplemental oxygen; R05.9 Cough, unspecified; Z20.828 Contact with and (suspected) exposure to other viral communicable diseases; E78.5 Hyperlipidemia, unspecified; I10 Essential (primary) hypertension; E11.42 Type 2 diabetes mellitus with diabetic polyneuropathy; K21.9 Gastro-esophageal reflux disease without esophagitis; F41.9 Anxiety disorder, unspecified; Z79.01 Long term (current) use of anticoagulants; Z79.899 Other long term (current) drug therapy
CPT/HCPCS: 71045; 87400; 87651; 96372; 99000; 99284; J2930; A9270-GY

== ENCOUNTER 2022-02-27 16:28 | Emergency (ER) | payer OTHER ==
[2022-02-27] MEDS ORDERED: solu-MEDROL 125 MG, Sterile H2O 10 ml 2 ML IV ONE ×2 (17:44)
[2022-02-27] MEDS ORDERED: Sterile H2O 10 ml IJ ONE (18:12)
[2022-02-27] MEDS ORDERED: solu-MEDROL ONE (18:12)
--- NOTE | 2022-02-27 18:21 | ERPHSYRPT ---
- History of Present Illness Time Seen by Provider: 02/27/22 16:45 Patient Subjective Stated Complaint: FEELS CONGESTED, TIGHTNESS WHEN BREATHING, COUGHING, NON PRODUCTIVE. Triage Nursing Assessment: BILATERAL WHEEZING UPON AUSCULTATION TO LUNGS IN ALL LOBES, WET INTERMITTEN COUGH, Physician History: This is a 46-year-old overweight white female patient of Dr. Henok José who has a history of COPD and wears 4 L of nasal cannula oxygen. She has had increasing wheezing in her lungs and a wet cough that is nonproductive. Patient states she is allergic to oral steroids but can use injectable. She does have a nebulizer at home but needs the Ventolin nebulizer solution units. She feels like her chest is congested. She does not have primary chest pain. Patient has chronic anxiety and panic disorder symptoms. She has a history of seasonal allergies, hypertension, gastroesophageal reflux disease, hyperlipidemia, hypothyroidism, seizure disorder and peripheral neuropathy. Timing/Duration: yesterday Activities at Onset: none Severity of Dyspnea-Max: mild (To moderate) Severity of Dyspnea-Current: mild Possible Cause: frequent episodes Associated Symptoms: cough, wheezing, No chest pain/discomfort Allergies/Adverse Reactions: aspirin Allergy (Mild, Verified 08/11/21 22:34) Nausea and Vomiting codeine [Codeine] Allergy (Mild, Verified 08/11/21 22:34) Itching Penicillins Allergy (Mild, Verified 08/11/21 22:34) Nausea and Vomiting promethazine HCl [From Phenergan] Allergy (Mild, Verified 08/11/21 22:34) tremors prednisolone Allergy (Verified 08/11/21 22:34) clindamycin Adverse Reaction (Intermediate, Verified 08/11/21 22:34) Hives fluoxetine HCl [From Prozac] Adverse Reaction (Intermediate, Verified 08/11/21 22:34) confusion , "jumped out of a moving truck" sulfamethoxazole [From Bactrim] Adverse Reaction (Intermediate, Verified 08/11/21 22:34) Swelling steroid from breathing treatment Allergy (Mild, Uncoded 08/11/21 22:34) Blisters oral steroid Home Medications: Levothyroxine Sodium 100 Mcg [Synthroid 100 Mcg] 88 mcg PO QAM 09/27/14 [History] Simvastatin [Zocor] 20 mg PO HS 09/27/14 [History] Clopidogrel Bisulfate [PLAVIX Tablet] 75 mg PO DAILY 04/05/15 [History] Diazepam 5 mg [Valium 5 MG] 10 mg PO TIDPRN PRN 02/14/16 [History] Albuterol Sulfate [Ventolin Hfa] 2 puff IH QID 12/21/16 [History] Loratadine 10 mg [Claritin 10 mg] 10 mg PO BID 07/30/17 [History] Magnesium Oxide 400 mg PO BID 09/10/17 [History] Ergocalciferol (Vitamin D2) [Vitamin D2] 50,000 units PO WEEKLY 01/21/19 [History] Propranolol HCl [Propranolol HCl ER] 80 mg PO HS 01/21/19 [History] Diltiazem HCl [Cartia Xt] 180 mg PO DAILY 04/22/20 [History] Hydroxyzine HCl 25 mg [Atarax 25 mg] 25 mg PO QID PRN 04/22/20 [History] Diphenhydramine HCl 25 mg [Benadryl 25 mg Capsule] 25 mg PO Q8H PRN 11/30/20 [History] Montelukast Sodium 10 mg [Singulair 10 MG] 10 mg PO BID 05/19/21 [History] Bumetanide 1 mg [Bumex 1 mg] 1 mg PO UD 02/27/22 [History] Dulaglutide [Trulicity] 0.75 mg SQ WEEKLY 02/27/22 [History] Fluticasone Propionate cc [Flovent 110 Mcg COMMON CANISTER] 2 puff IH BID 02/27/22 [History] Hx Tetanus, Diphtheria Vaccination/Date Given: Yes Hx Influenza Vaccination/Date Given: No Hx Pneumococcal Vaccination/Date Given: Yes (2020) Immunizations Up to Date: No Travel Risk - International Travel Have you traveled outside of the country in past 3 weeks: No - Coronavirus Screening Are you exhibiting any of the following symptoms?: Yes Symptoms: Cough: New Onset, Shortness of Breath Close contact with a COVID-19 positive Pt in past 14-21 Days: No - Vaccine Status Have you recieved a Covid-19 vaccination: No - Review of Systems Constitutional: No Symptoms Eyes: No Symptoms Ears, Nose, & Throat: No Symptoms Respiratory: Cough, Dyspnea Cardiac: No Symptoms Abdominal/Gastrointestinal: No Symptoms Genitourinary Symptoms: No Symptoms Musculoskeletal: No Symptoms Skin: No Symptoms Neurological: No Symptoms Psychological: No Symptoms Endocrine: No Symptoms Hematologic/Lymphatic: No Symptoms Immunological/Allergic: No Symptoms All Other Systems: Reviewed and Negative - Past Medical History Pertinent Past Medical History: Yes Neurological History: Peripheral Neuropathy, Seizures, Stroke ENT History: No Pertinent History Cardiac History: High Cholesterol, Hypertension Respiratory History: COPD Endocrine Medical History: Diabetes Type II, Hypothyroidism Musculoskeletal History: Arthritis GI Medical History: GERD, Hernia, Ulcer History: No Pertinent History Psycho-Social History: Anxiety, Bipolar, Depression, Panic Disorder Female Reproductive Disorders: Endometriosis Other Medical History: CVA 2018. 4 years since last seizure. Mitral valve prolapse with regurgitation - Past Surgical History Past Surgical History: Yes Neuro Surgical History: No Pertinent History Cardiac: Cardiac Catheterization Respiratory: No Pertinent History Gastrointestinal: Appendectomy, Cholecystectomy, Hernia Repair Genitourinary: No Pertinent History Musculoskeletal: Joint Replacement, Orthopedic Surgery Female Surgical History: Hysterectomy, Dilation & Curettage Other Surgical History: torn miniscus and implant-RT KNEE" partial scope replacement", oral surgery, melanoma removed for face three times, port placement twice with one removal. - Social History Smoking Status: Former smoker How long have you smoked: 12 years Exposure to second hand smoke: Yes Alcohol Use: None Drug Use: none Patient Lives Alone: No Significant Family History: no pertinent family hx, heart disease, diabetes, hypertension - Female History Hx Now: No - Nursing Vital Signs Nursing Vital Signs: Initial Vital Signs Temperature 98 F 02/27/22 16:28 Pulse Rate 87 02/27/22 16:28 Respiratory Rate 22 02/27/22 16:28 Blood Pressure 143/88 02/27/22 16:28 O2 Sat by Pulse Oximetry 97 02/27/22 16:28 Pain Scale Pain Intensity 0 - Physical Exam General Appearance: no apparent distress, alert, anxiety, obese Eye Exam: PERRL/EOMI, eyes nml inspection Ears, Nose, Throat Exam: hearing grossly normal, normal ENT inspection, normal pharynx Neck Exam: normal inspection, non-tender, supple, full range of motion Respiratory Exam: wheezing (Bilateral), No chest tenderness, No respiratory distress Cardiovascular/Chest Exam: normal heart sounds, regular rate/rhythm Abdominal/Gastrointestinal Exam: soft, normal bowel sounds, No tenderness Rectal Exam: not done Extremity Exam: non-tender, normal range of motion, normal inspection, normal capillary refill, no calf tenderness, no pedal edema, pelvis stable Neurologic Exam: alert, oriented x 3, cooperative, computing architect II-XII nml as tested, nml cerebellar function, nml station & gait, sensation nml Skin Exam: normal color, warm, dry Lymphatic Exam: No adenopathy SpO2 Interpretation: normal SpO2: 97 O2 Delivery: Room Air - Course Nursing assessment & vital signs reviewed: Yes EKG Interpreted by Me: RATE (70), Sinus Rhythm, NORMAL AXIS, NORMAL INTERVALS, NORMAL QRS, NORMAL ST-T, Other (No acute ischemic changes on today's EKG) Ordered Tests: Active Orders 24 hr Category Date Time Status Robotics Systems Engineer STAT Care 02/27/22 17:44 Active EKG-ER Only STAT Care 02/27/22 17:44 Active IV Insertion STAT Care 02/27/22 17:44 Active Oxygen-ED Only Nasal Cannula 4 lpm Care 02/27/22 20:25 Active Pulse Oximetry (ED) STAT Care 02/27/22 17:44 Active CHEST 1 VIEW (PORTABLE) Stat Exams 02/27/22 18:08 Taken BLOOD CULTURE Stat Lab 02/27/22 17:44 Received CBC W DIFF Stat Lab 02/27/22 18:51 Completed CMP Stat Lab 02/27/22 18:51 Completed NT PRO BNP Stat Lab 02/27/22 18:51 Completed TROPONIN Q4H Lab 02/27/22 17:45 Ordered TROPONIN Q4H Lab 02/27/22 21:45 Ordered TROPONIN Q4H Lab 02/28/22 01:45 Ordered Respiratory Therapy Assessment DAILY RT 02/27/22 20:34 Active Medication Summary Discontinued Medications Generic Name Dose Route Start Last Admin Trade Name Freq PRN Reason Stop Dose Admin Albuterol/Ipratropium Confirm 02/27/22 19:04 Ipratropium/Albuterol Sulfate 3 Ml Ampul.Neb Administered 02/27/22 19:05 Dose 3 ml IH .STK-MED ONE Albuterol/Ipratropium 3 ml 02/27/22 19:16 02/27/22 19:05 Ipratropium/Albuterol Sulfate 3 Ml Ampul.Neb IH 02/27/22 19:17 3 ml STAT ONE Administration Methylprednisolone Sodium 0 mg 02/27/22 17:44 02/27/22 18:13 Succinate 125 mg/ Sterile IV 02/27/22 17:45 125 mg Water 2 ml STAT ONE Administration Methylprednisolone Sodium Succinate Confirm 02/27/22 18:12 Methylprednis Sod Succ 125 Mg/2 Ml Vial Administered 02/27/22 18:13 Dose 125 mg .ROUTE .STK-MED ONE Sterile Water Confirm 02/27/22 18:12 Water For Injection,Sterile 10 Ml Vial Administered 02/27/22 18:13 Dose 10 ml IJ .STK-MED ONE Lab/Rad Data: Laboratory Result Diagrams 02/27/22 18:51 02/27/22 18:51 Laboratory Results 02/27/22 02/27/22 Range/Units 18:51 18:51 WBC 7.0 (4.0-10.5) x10^3/uL RBC 4.53 (4.1-5.4) x10^6/uL Hgb 12.7 (12.0-16.0) g/dL Hct 39.5 (35-47) % MCV 87.2 (78-100) fL MCH 28.0 (26-32) pg MCHC 32.2 (32-36) g/dL RDW 13.1 (11.5-14.0) % Plt Count 161 (150-450) x10^3/uL MPV 11.2 H (7.5-11.0) fL Gran % 73.3 H (36.0-66.0) % Immature Gran % (Auto) 0.3 (0.00-0.4) % Nucleat RBC Rel Count 0.0 (0.00-0.1) % Eos # (Auto) 0.27 (0-0.5) x10^3/uL Immature Gran # (Auto) 0.02 (0.00-0.03) x10^3u/L Absolute Lymphs (auto) 1.00 (1.0-4.6) x10^3/uL Absolute Monos (auto) 0.55 (0.0-1.3) x10^3/uL Absolute Nucleated RBC 0.00 (0.00-0.01) x10^3u/L Lymphocytes % 14.3 L (24.0-44.0) % Monocytes % 7.9 (0.0-12.0) % Eosinophils % 3.9 (0.00-5.0) % Basophils % 0.3 (0.0-0.4) % Absolute Granulocytes 5.11 (1.4-6.9) x10^3/uL Basophils # 0.02 (0-0.4) x10^3/uL Sodium 140 (137-145) mmol/L Potassium 3.5 (3.5-5.1) mmol/L Chloride 106 (98-107) mmol/L Carbon Dioxide 28 (22-30) mmol/L Anion Gap 10.0 (5-15) MEQ/L BUN 8 (7-17) mg/dL Creatinine 0.60 (0.52-1.04) mg/dL Estimated GFR > 60.0 ML/MIN Glucose 96 (74-106) mg/dL Calcium 9.1 (8.4-10.2) mg/dL Total Bilirubin 0.50 (0.2-1.3) mg/dL AST 21 (14-36) U/L ALT 18 (0-35) U/L Alkaline Phosphatase 127 H (38-126) U/L NT-Pro-B Natriuret Pep 212 (0-450) pg/mL Serum Total Protein 7.5 (6.3-8.2) g/dL Albumin 4.5 (3.5-5.0) g/dL - Progress Progress: improved, re-examined Progress Note: 02/27/22 21:20 Chest x-ray shows no acute cardiopulmonary process. Medical decision making: This patient does tend to have multiple episodes of recurrent pneumonia. Clinically she has improved. However we will place her on a Z-Jacob. In addition I will provide her pharmacy with a prescription for Ventolin solution for her nebulizer. Blood Culture(s) Obtained: No Antibiotics given: No Counseled pt/family regarding: lab results, diagnosis, need for follow-up, rad results - Departure Departure Disposition: Home Clinical Impression: COPD with exacerbation Condition: Stable Critical Care Time: No Referrals: ERICA ROQUE [Primary Care Provider] - Follow up/PCP as directed Instructions: Chronic Obstructive Pulmonary Disease Additional Instructions: Take your medications as prescribed. Follow-up with your primary care provider for further evaluation and management. Prescriptions: Albuterol 2.5 mg/3 ml Neb [Proventil 2.5 mg/3 ml Neb] 2.5 mg IH Q6H #25 units Azithromycin 250 mg [Zithromax 250 MG TABLET] 250 mg PO ZPACK #6 tablet
[2022-02-27 18:54] LABS: Absolute Neutrophil Ct (ANC) 5.11 x10^3/uL (1.4-6.9); Basophil (Absolute #) 0.02 x10^3/uL (0-0.4); Eosinophil % 3.9 % (0.00-5.0); Eosinophil (Absolute #) 0.27 x10^3/uL (0-0.5); Hematocrit 39.5 % (35-47); Hemoglobin 12.7 g/dL (12.0-16.0); Lymphocytes % 14.3 % (24.0-44.0); Mean Cell Volume 87.2 fL (78-100); Mean Corpuscular Hgb Concent. 32.2 g/dL (32-36); Mean Platelet Volume 11.2 fL (7.5-11.0); Monocyte (Absolute #) 0.55 x10^3/uL (0.0-1.3); Monocytes % 7.9 % (0.0-12.0); Neutrophil % 73.3 % (36.0-66.0); Platelet Count 161 x10^3/uL (150-450); Red Blood Count 4.53 x10^6/uL (4.1-5.4); Red Cell Distribution Width 13.1 % (11.5-14.0)
[2022-02-27] MEDS ORDERED: DUONEB 0.5-3 MG/3 ml Neb IH ONE ×2 (19:04→19:16)
[2022-02-27 19:14] LABS: ALBUMIN 4.5 g/dL (3.5-5.0); ALKALINE PHOSPHATASE 127 U/L (38-126); BLOOD UREA NITROGEN 8 mg/dL (7-17); CHLORIDE 106 mmol/L (98-107); Calcium 9.1 mg/dL (8.4-10.2); Carbon Dioxide 28 mmol/L (22-30); EST GLOMERULAR FILTRATION RATE > 60.0 ML/MIN; Glucose 96 mg/dL (74-106); NT PRO BNP 212 pg/mL (0-450); Potassium 3.5 mmol/L (3.5-5.1); SGOT/AST 21 U/L (14-36); SGPT/ALT 18 U/L (0-35); SODIUM 140 mmol/L (137-145); Total Protein 7.5 g/dL (6.3-8.2)
[2022-02-27 21:52] VITALS: BP 128/76; PULSE 85; O2SAT 98
--- NOTE | 2022-02-28 08:50 | XRAY ---
Indication: Cough, congestion, short of breath. Comparison: August 11, 2021 Portable chest remains clear again with chronic right hemidiaphragm elevation and left Port-A-Cath. Remaining heart and lungs unremarkable. Bony thorax intact.
== END 2022-02-27 21:59 | disposition home or self-care (01) ==
LOC: ED 16:28
DX: J44.1 Chronic obstructive pulmonary disease with (acute) exacerbation (principal); R05.9 Cough, unspecified; I10 Essential (primary) hypertension; E78.5 Hyperlipidemia, unspecified; E11.42 Type 2 diabetes mellitus with diabetic polyneuropathy; Z79.02 Long term (current) use of antithrombotics/antiplatelets; Z79.899 Other long term (current) drug therapy; Z28.310 Unvaccinated for COVID-19; Z99.81 Dependence on supplemental oxygen
CPT/HCPCS: 36000; 36415; 71045; 80053; 83880; 84484; 85025; 87040; 93005; 94640; 94760; 96374; 99284; J2930; A9270-GY

== ENCOUNTER 2022-12-28 13:21 | Emergency (ER) | payer OTHER ==
[2022-12-28 14:09] VITALS: TEMP 98.1
[2022-12-28] MEDS ORDERED: TORAdol 30 mg Injection IM ONE (14:19)
[2022-12-28] MEDS ORDERED: TORAdol 30 mg Injection ONE (14:22)
--- NOTE | 2022-12-28 14:46 | XRAY ---
Indication: Pain following injury 3 days ago. Comparison: None 3 view right ankle obtained. No bony, articular, or soft tissue abnormalities.
--- NOTE | 2022-12-28 15:03 | ERPHSYRPT ---
- History of Present Illness Time Seen by Provider: 12/28/22 13:27 Source: patient Exam Limitations: no limitations Patient Subjective Stated Complaint: pt states that she rolled her ankle 3 days ago and now has pain to her groin. pt states that she is afraid she has a DVT Triage Nursing Assessment: pt ambulated into the er; pt is axo x4; c/o RLE pain; no streaking or redness present to RLE; strong rt pedal pulse; good ROM to RLE; slight swelling present to rt foot; vitals wnl; no respiratory distress present; skin PDW Physician History: 47 years old female with history of issues with right ankle in the past prese nted in the ER with chief complaint of right ankle pain and right groin area pain.. Patient reports she was having a bucket of stuff in her hands and tripped on something, twisted her ankle 3 days ago. Since then she has done 3 more times. Did not fell on her hip. She did hit her right knee but no pain. Now she is having some pain in the right anterior groin with stretching. No swelling of calf or thigh. No pain in the thigh or calf. Does have moderate intensity sharp pain in the ankle with minimal swelling but patient is able to ambulate without any limitation. Patient is worried about having blood clots. Up-to-date with tetanus. Method of Injury: twisted Occurred: days ago (3) Quality: sharpness Severity of Pain-Max: moderate Severity of Pain-Current: moderate Lower Extremities Pain: ankle: right Modifying Factors: Worsens With: movement Associated Symptoms: No unable to bear weight, No snapping sensation, No popping sensation Allergies/Adverse Reactions: aspirin Allergy (Mild, Verified 12/28/22 13:54) Nausea and Vomiting codeine [Codeine] Allergy (Mild, Verified 12/28/22 13:54) Itching Penicillins Allergy (Mild, Verified 12/28/22 13:54) Nausea and Vomiting promethazine HCl [From Phenergan] Allergy (Mild, Verified 12/28/22 13:54) tremors prednisolone Allergy (Verified 12/28/22 13:54) clindamycin Adverse Reaction (Intermediate, Verified 12/28/22 13:54) Hives fluoxetine HCl [From Prozac] Adverse Reaction (Intermediate, Verified 07/27/23 13:54) confusion , "jumped out of a moving truck" sulfamethoxazole [From Bactrim] Adverse Reaction (Intermediate, Verified 12/28/22 13:54) Swelling steroid from breathing treatment Allergy (Mild, Uncoded 12/28/22 13:54) Blisters oral steroid Home Medications: Levothyroxine Sodium 100 Mcg [Synthroid 100 Mcg] 88 mcg PO QAM 09/27/14 [History] Simvastatin [Zocor] 20 mg PO HS 09/27/14 [History] Clopidogrel Bisulfate [PLAVIX Tablet] 75 mg PO DAILY 04/05/15 [History] Diazepam 5 mg [Valium 5 MG] 10 mg PO TIDPRN PRN 02/14/16 [History] Albuterol Sulfate [Ventolin Hfa] 2 puff IH QID 12/21/16 [History] Loratadine 10 mg [Claritin 10 mg] 10 mg PO BID 07/30/17 [History] Magnesium Oxide 400 mg PO BID 09/10/17 [History] Ergocalciferol (Vitamin D2) [Vitamin D2] 50,000 units PO WEEKLY 01/21/19 [History] Propranolol HCl [Propranolol HCl ER] 80 mg PO HS 01/21/19 [History] Diltiazem HCl [Cartia Xt] 180 mg PO DAILY 04/22/20 [History] Hydroxyzine HCl 25 mg [Atarax 25 mg] 25 mg PO QID PRN 04/22/20 [History] Diphenhydramine HCl 25 mg [Benadryl 25 mg Capsule] 25 mg PO Q8H PRN 11/30/20 [History] Montelukast Sodium 10 mg [Singulair 10 MG] 10 mg PO BID 05/19/21 [History] Bumetanide 1 mg [Bumex 1 mg] 1 mg PO UD 02/27/22 [History] Dulaglutide [Trulicity] 0.75 mg SQ WEEKLY 02/27/22 [History] Fluticasone Propionate cc [Flovent 110 Mcg COMMON CANISTER] 2 puff IH BID 02/27/22 [History] Hx Tetanus, Diphtheria Vaccination/Date Given: Yes Hx Influenza Vaccination/Date Given: Yes Hx Pneumococcal Vaccination/Date Given: Yes (2020) Immunizations Up to Date: No Travel Risk - International Travel Have you traveled outside of the country in past 3 weeks: No - Coronavirus Screening Are you exhibiting any of the following symptoms?: No Close contact with a COVID-19 positive Pt in past 14-21 Days: No - Vaccine Status Have you recieved a Covid-19 vaccination: No - Review of Systems Constitutional: No Symptoms Ears, Nose, & Throat: No Symptoms Respiratory: No Symptoms Cardiac: No Symptoms Abdominal/Gastrointestinal: No Symptoms Musculoskeletal: Arthralgias, Fall, Injury, Joint Pain, Joint Swelling Skin: No Symptoms Neurological: No Symptoms Endocrine: No Symptoms Hematologic/Lymphatic: No Symptoms - Past Medical History Pertinent Past Medical History: Yes Neurological History: Peripheral Neuropathy, Seizures, Stroke ENT History: No Pertinent History Cardiac History: High Cholesterol, Hypertension Respiratory History: COPD Endocrine Medical History: Diabetes Type II, Hypothyroidism Musculoskeletal History: Arthritis GI Medical History: GERD, Hernia, Ulcer History: No Pertinent History Psycho-Social History: Anxiety, Bipolar, Depression, Panic Disorder Female Reproductive Disorders: Endometriosis Other Medical History: CVA 2018. 4 years since last seizure. Mitral valve prolapse with regurgitation. 4L of O2 at HS - Past Surgical History Past Surgical History: Yes Neuro Surgical History: No Pertinent History Cardiac: Cardiac Catheterization Respiratory: No Pertinent History Gastrointestinal: Appendectomy, Cholecystectomy, Hernia Repair Genitourinary: No Pertinent History Musculoskeletal: Joint Replacement, Orthopedic Surgery Female Surgical History: Hysterectomy, Dilation & Curettage Other Surgical History: torn miniscus and implant-RT KNEE" partial scope replacement", oral surgery, melanoma removed for face three times, port placement twice with one removal. - Social History Smoking Status: Former smoker How long have you smoked: 12 years Exposure to second hand smoke: Yes Alcohol Use: None Drug Use: none Patient Lives Alone: No Significant Family History: no pertinent family hx, heart disease, diabetes, hypertension - Female History Hx Now: No - Nursing Vital Signs Nursing Vital Signs: Initial Vital Signs Temperature 98.1 F 12/28/22 13:59 Pulse Rate 72 12/28/22 13:59 Respiratory Rate 16 12/28/22 13:59 Blood Pressure 130/81 12/28/22 13:59 O2 Sat by Pulse Oximetry 98 12/28/22 13:59 Pain Scale Pain Intensity 7 - Physical Exam General Appearance: no apparent distress, alert Eyes, Ears, Nose, Throat Exam: normal ENT inspection Neck Exam: normal inspection, supple, full range of motion Cardiovascular/Respiratory Exam: normal breath sounds, regular rate/rhythm Back Exam: normal inspection, normal range of motion Hips Exam: bilateral: non-tender, normal inspection, normal range of motion Legs Exam: bilateral leg: non-tender, normal inspection, normal range of motion, no evidence of injury Knees Exam: right knee: other (Mild abrasion right medial knee with no tenderness.), bilateral knee: non-tender, normal range of motion Ankle Exam: right ankle: bone tenderness (Bimalleolar), pain, soft tissue tenderness, left ankle: non-tender, normal inspection, normal range of motion, no evidence of injury Foot Exam: bilateral foot: non-tender, normal inspection, normal range of motion, no evidence of injury Neuro/Tendon Exam: normal sensation, normal motor functions, normal tendon functions Mental Status Exam: alert, oriented x 3, cooperative Skin Exam: normal color SpO2 Interpretation: normal SpO2: 96 O2 Delivery: Room Air Ordered Tests: Active Orders 24 hr Category Date Time Status ANKLE (3 VIEWS) Stat Exams 12/28/22 14:19 Completed Medication Summary Discontinued Medications Generic Name Dose Route Start Last Admin Trade Name Parker PRN Reason Stop Dose Admin Ketorolac Tromethamine 30 mg 12/28/22 14:19 12/28/22 14:27 Ketorolac Tromethamine 30 Mg/Ml Inj IM 12/28/22 14:20 30 mg STAT ONE Administration Ketorolac Tromethamine Confirm 12/28/22 14:22 Ketorolac Tromethamine 30 Mg/Ml Inj Administered 12/28/22 14:23 Dose 30 mg .ROUTE .STK-MED ONE - Progress Progress: improved, pain not gone completely Progress Note: 12/28/22 15:06 47 years old female with history of issues with right ankle in the past presented in the ER with chief complaint of right ankle pain and right groin area pain.. Patient reports she was having a bucket of stuff in her hands and tripped on something, twisted her ankle 3 days ago. Since then she has done 3 more times. Did not fell on her hip. She did hit her right knee but no pain. Now she is having some pain in the right anterior groin with stretching. No swelling of calf or thigh. No pain in the thigh or calf. Does have moderate intensity sharp pain in the ankle with minimal swelling but patient is able to ambulate without any limitation. Patient is worried about having blood clots. Patient has tenderness only in the ankle joint area. Obtained x-rays which are negative for fracture dislocation. I believe with repeated twisting she has ligamentous injury, recommended Aircast but patient reported she has ankle brace at home which she used to wear with her previous injury in the same ankle. She is advised to continue using that. Recommended outpatient orthopedics follow- up. I believe patient has very low pain tolerance and before even I touched her ankle she started screaming. I do not think patient needs ultrasound for DVT as it seems like because of repeated twisting and falling she is having some strain in the thigh muscle area. Patient was not happy that we are not obtaining ultrasound but I do not believe it is indicated. She is advised to follow-up with her primary care and outpatient follow-up. She will be referred to outpatient podiatry for further evaluation. Counseled pt/family regarding: diagnosis, need for follow-up, rad results Medical Desision Making - Diagnostic Testing Radiological Interpretation: Reviewed by me - Risk of complications The pt has a mod risk of morbidity or mortality based on: Need for prescription drug management - Departure Departure Disposition: Home Clinical Impression: Right ankle sprain, Muscle strain of thigh Condition: Stable Critical Care Time: No Referrals: IHSAN NICHOLE MD [Primary Care Provider] - Follow up with PCP 1 day JULIEN GARCIA DPM [ACTIVE STAFF] - Follow up/PCP as directed (Call tomorrow for appointment for reevaluation) Instructions: Muscle strain, Ankle Sprain (DC) Additional Instructions: Take Tylenol/diclofenac as needed for pain. Weightbearing as tolerated. Use cane/walker for ambulation to avoid another fall. Follow-up with podiatry for reevaluation. Return to ER for any worsening Prescriptions: Diclofenac Sodium 50 mg PO TID PRN 7 Days #20 tab PRN Reason: Pain
[2022-12-28 15:22] VITALS: BP 108/77; O2SAT 95
[2022-12-28 15:26] VITALS: PULSE 70; RESP 17
== END 2022-12-28 15:26 | disposition home or self-care (01) ==
LOC: ED 13:21
DX: S93.401A Sprain of unspecified ligament of right ankle, initial encounter (principal); S76.911A Strain of unspecified muscles, fascia and tendons at thigh level, right thigh, initial encounter; X50.0XXA Overexertion from strenuous movement or load, initial encounter; R10.2 Pelvic and perineal pain; E78.5 Hyperlipidemia, unspecified; I10 Essential (primary) hypertension; E11.42 Type 2 diabetes mellitus with diabetic polyneuropathy; Z79.02 Long term (current) use of antithrombotics/antiplatelets; Z79.85 Long-term (current) use of injectable non-insulin antidiabetic drugs; Z79.899 Other long term (current) drug therapy; Z28.310 Unvaccinated for COVID-19
CPT/HCPCS: 73610; 96372; 99283; J1885

== ENCOUNTER 2023-05-06 20:04 | Emergency (ER) | payer OTHER ==
[2023-05-06] MEDS ORDERED: DUONEB 0.5-3 MG/3 ml Neb IH ONE ×2 (20:26→20:35)
[2023-05-06 20:28] VITALS: TEMP 97.8
[2023-05-06 21:31] VITALS: O2SAT 96
[2023-05-06 21:35] LABS: INFLUENZA A NEGATIVE (NEGATIVE); INFLUENZA B NEGATIVE (NEGATIVE); RESPIRATORY SYNCTIAL VIRUS NEGATIVE (NEGATIVE); SARS-CoV-2 Xpert Express NEGATIVE (NEGATIVE)
--- NOTE | 2023-05-06 21:51 | ERPHSYRPT ---
- History of Present Illness Time Seen by Provider: 05/06/23 20:08 Source: patient Exam Limitations: no limitations Patient Subjective Stated Complaint: pt states that since Sunday she has had nasal congestion, a nonproductive cough, and headache. Triage Nursing Assessment: pt ambulated into room 6 independently with slow steady gait. pt is alert and oriented times three, able to move all extremities, able to speak in complete sentences, and with resp even and unlabored. lung sounds posterior noted to have inspiratory wheezes in left upper otherwise clear throughout. heart sound presents and normal. skin warm, pink, dry, and intact. denies fever, chills, n/v, diarrhea, sob, difficulty breathing, lightheadedness, dizziness, change in appetite, difficulty with urination or bowel elimination. Physician History: 47 years old female with history of COPD presented in the ER with chief complaint of flulike symptoms for the last 2 days. Patient reports cough congestion, body aches, mild headache. Patient reports cough nonproductive with associated wheezing. She has been using inhaler. Patient is concerned about getting pneumonia as she has multiple times in the past. No difficulty breathing, fever or chills reported. Allergies/Adverse Reactions: aspirin Allergy (Mild, Verified 12/28/22 13:54) Nausea and Vomiting codeine [Codeine] Allergy (Mild, Verified 12/28/22 13:54) Itching Penicillins Allergy (Mild, Verified 12/28/22 13:54) Nausea and Vomiting promethazine HCl [From Phenergan] Allergy (Mild, Verified 12/28/22 13:54) tremors prednisolone Allergy (Verified 12/28/22 13:54) clindamycin Adverse Reaction (Intermediate, Verified 12/28/22 13:54) Hives fluoxetine HCl [From Prozac] Adverse Reaction (Intermediate, Verified 12/28/22 13:54) confusion , "jumped out of a moving truck" sulfamethoxazole [From Bactrim] Adverse Reaction (Intermediate, Verified 12/28/22 13:54) Swelling steroid from breathing treatment Allergy (Mild, Uncoded 12/28/22 13:54) Blisters oral steroid Home Medications: Levothyroxine Sodium 100 Mcg [Synthroid 100 Mcg] 88 mcg PO QAM 09/27/14 [History] Simvastatin [Zocor] 20 mg PO HS 09/27/14 [History] Clopidogrel Bisulfate [PLAVIX Tablet] 75 mg PO DAILY 04/05/15 [History] Diazepam 5 mg [Valium 5 MG] 10 mg PO TIDPRN PRN 02/14/16 [History] Albuterol Sulfate [Ventolin Hfa] 2 puff IH QID 12/21/16 [History] Loratadine 10 mg [Claritin 10 mg] 10 mg PO DAILY 07/30/17 [History] Magnesium Oxide 400 mg PO BID 09/10/17 [History] Ergocalciferol (Vitamin D2) [Vitamin D2] 50,000 units PO WEEKLY 01/21/19 [History] Propranolol HCl [Propranolol HCl ER] 80 mg PO HS 01/21/19 [History] Diltiazem HCl [Cartia Xt] 180 mg PO HS 04/22/20 [History] Hydroxyzine HCl 25 mg [Atarax 25 mg] 25 mg PO QID PRN 04/22/20 [History] Diphenhydramine HCl 25 mg [Benadryl 25 mg Capsule] 25 mg PO Q8H PRN 11/30/20 [History] Montelukast Sodium 10 mg [Singulair 10 MG] 10 mg PO HS 05/19/21 [History] Bumetanide 1 mg [Bumex 1 mg] 1 mg PO UD 02/27/22 [History] Dulaglutide [Trulicity] 0.75 mg SQ WEEKLY 02/27/22 [History] Fluticasone Propionate cc [Flovent 110 Mcg COMMON CANISTER] 2 puff IH BID [History] Hx Tetanus, Diphtheria Vaccination/Date Given: Yes Hx Influenza Vaccination/Date Given: No (2021) Hx Pneumococcal Vaccination/Date Given: Yes (2020) Immunizations Up to Date: Yes Travel Risk - International Travel Have you traveled outside of the country in past 3 weeks: No - Coronavirus Screening Are you exhibiting any of the following symptoms?: Yes Symptoms: Cough: New Onset, Headaches/Body Aches/Fatigue - Vaccine Status Have you recieved a Covid-19 vaccination: No - Review of Systems Constitutional: Fatigue, Weakness Eyes: No Symptoms Ears, Nose, & Throat: Nose Congestion Respiratory: Cough, Wheezing Cardiac: No Symptoms Abdominal/Gastrointestinal: No Symptoms Genitourinary Symptoms: No Symptoms Musculoskeletal: Myalgias Skin: No Symptoms Neurological: Headache Psychological: No Symptoms Endocrine: No Symptoms Hematologic/Lymphatic: No Symptoms Immunological/Allergic: No Symptoms - Past Medical History Pertinent Past Medical History: Yes Neurological History: Peripheral Neuropathy, Seizures, Stroke ENT History: No Pertinent History Cardiac History: High Cholesterol, Hypertension, Other Respiratory History: COPD Endocrine Medical History: Diabetes Type II, Hypothyroidism Musculoskeletal History: Arthritis GI Medical History: GERD, Hernia, Ulcer History: No Pertinent History Psycho-Social History: Anxiety, Bipolar, Depression, Panic Disorder Female Reproductive Disorders: Endometriosis Other Medical History: CVA 2018. 4 years since last seizure. Mitral valve prolapse with regurgitation. 4L of O2 at HS - Past Surgical History Past Surgical History: Yes Neuro Surgical History: No Pertinent History Cardiac: Cardiac Catheterization Respiratory: No Pertinent History Gastrointestinal: Appendectomy, Cholecystectomy, Hernia Repair Genitourinary: No Pertinent History Musculoskeletal: Joint Replacement, Orthopedic Surgery Female Surgical History: Hysterectomy, Dilation & Curettage Other Surgical History: torn miniscus and implant-RT KNEE" partial scope replacement", oral surgery, melanoma removed for face three times, port placement twice with one removal. - Social History Smoking Status: Former smoker How long have you smoked: 12 years Exposure to second hand smoke: Yes Alcohol Use: None Drug Use: none Patient Lives Alone: No Significant Family History: no pertinent family hx, heart disease, diabetes, hypertension - Female History Hx Last Menstrual Period: hysterectomy Hx Now: (UNKN) - Nursing Vital Signs Nursing Vital Signs: Initial Vital Signs Temperature 97.8 F 05/06/23 20:10 Pulse Rate 70 05/06/23 20:10 Respiratory Rate 22 05/06/23 20:10 Blood Pressure 135/78 05/06/23 20:10 O2 Sat by Pulse Oximetry 98 05/06/23 20:10 Pain Scale Pain Intensity 6 - Physical Exam General Appearance: no apparent distress, alert Eye Exam: PERRL/EOMI Ears, Nose, Throat Exam: moist mucous membranes, pharyngeal erythema Neck Exam: normal inspection, non-tender, supple, full range of motion Respiratory Exam: wheezing, No respiratory distress Cardiovascular Exam: regular rate/rhythm, normal heart sounds Gastrointestinal/Abdomen Exam: soft, normal bowel sounds, No tenderness Back Exam: normal inspection, normal range of motion Extremity Exam: normal inspection, normal range of motion Neurologic Exam: alert, oriented x 3, cooperative, 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, normal mood/affect, nml station & gait, sensation nml, No nml cerebellar function, No motor deficits Skin Exam: normal color SpO2 Interpretation: normal SpO2: 96 O2 Delivery: Room Air Ordered Tests: Active Orders 24 hr Category Date Time Status CHEST 1 VIEW (PORTABLE) Stat Exams 05/06/23 20:28 Taken Respiratory Therapy Assessment DAILY RT 05/06/23 20:36 Completed Respiratory Therapy Assessment DAILY RT 05/06/23 21:03 Active Medication Summary Discontinued Medications Generic Name Dose Route Start Last Admin Trade Name Freq PRN Reason Stop Dose Admin Albuterol/Ipratropium 3 ml 05/06/23 20:26 05/06/23 20:37 Ipratropium/Albuterol Sulfate 3 Ml Ampul.Neb IH 05/06/23 20:27 3 ml STAT ONE Administration Albuterol/Ipratropium Confirm 05/06/23 20:35 Ipratropium/Albuterol Sulfate 3 Ml Ampul.Neb Administered 05/06/23 20:36 Dose 3 ml IH .STK-MED ONE Doxycycline Hyclate 100 mg 05/06/23 22:05 Doxycycline Hyclate 100 Mg Tablet PO 05/06/23 22:06 STAT ONE Lab/Rad Data: Laboratory Results 05/06/23 Range/Units 20:57 Influenza Type A Ag NEGATIVE (NEGATIVE) Influenza Type B Ag NEGATIVE (NEGATIVE) RSV (PCR) NEGATIVE (NEGATIVE) SARS-CoV-2 (PCR) NEGATIVE (NEGATIVE) - Progress Progress: improved, re-examined Air Movement: good Progress Note: 05/06/23 22:07 47 years old is evaluated in the ER with flulike symptoms with cough congestion and bilateral wheezing. She is given breathing treatment, on reevaluation feeling better. She is on room air maintaining oxygen saturation around 97%. Not in any distress. Chest x-ray no acute cardiopulmonary findings reviewed by me, official report is pending. Patient has negative flu COVID and RSV. I believe patient has viral URI with cough congestion causing COPD exacerbation and given a dose of doxycycline here and will continue to go home. Patient is allergic to prednisone/steroids. I recommended continue with inhaler and nebulizer which she has at home. Do not think patient needs to be admitted or any other workup and is stable for discharge with outpatient follow-up. Discussed signs symptoms of worsening needing return to ER which she seems understanding. Blood Culture(s) Obtained: No Antibiotics given: Yes Counseled pt/family regarding: lab results, diagnosis, need for follow-up, rad results Medical Desision Making - Diagnostic Testing Diagnostic test were ordered, analyzed, and reviewed by me: Yes Radiological Interpretation: Interpreted by me, Reviewed by me - Risk of complications The pt has a mod risk of morbidity or mortality based on: Need for prescription drug management - Departure Departure Disposition: Home Clinical Impression: COPD with exacerbation, URI with cough and congestion Condition: Stable Critical Care Time: No Referrals: IHSAN NICHOLE MD [Primary Care Provider] - Follow up with PCP 1 day Instructions: Chronic Obstructive Pulmonary Disease, Exacerbation of COPD (DC) Additional Instructions: Continue with inhaler and nebulizer. Follow-up with primary care for reevaluation. Return to ER for worsening wheezing or if having chest pain, difficulty breathing or worsening cough etc. Prescriptions: Doxycycline Hyclate 100 mg [Vibramycin 100 MG] 100 mg PO BID #14 tab
[2023-05-06] MEDS ORDERED: Vibramycin 100 MG PO ONE (22:05)
[2023-05-06 22:14] VITALS: BP 108/68; PULSE 62; RESP 20
[2023-05-06] MEDS ORDERED: Vibramycin 100 MG ONE (22:17)
--- NOTE | 2023-05-07 08:36 | XRAY ---
Indication: Cough. Comparison: February 27, 2022 Portable chest remains clear again with chronic right hemidiaphragm elevation and left Port-A-Cath. Remaining heart and lungs unremarkable. Bony thorax intact. No new/acute findings.
== END 2023-05-06 22:26 | disposition home or self-care (01) ==
LOC: ED 20:04
DX: J44.1 Chronic obstructive pulmonary disease with (acute) exacerbation (principal); J06.9 Acute upper respiratory infection, unspecified; R05.1 Acute cough; R09.81 Nasal congestion; M79.10 Myalgia, unspecified site; R51.9 Headache, unspecified; E78.5 Hyperlipidemia, unspecified; I10 Essential (primary) hypertension; E11.42 Type 2 diabetes mellitus with diabetic polyneuropathy; Z79.02 Long term (current) use of antithrombotics/antiplatelets; Z79.85 Long-term (current) use of injectable non-insulin antidiabetic drugs; Z79.899 Other long term (current) drug therapy; Z28.310 Unvaccinated for COVID-19
CPT/HCPCS: 0241U; 71045; 94640; 99283; A9270-GY

== ENCOUNTER 2024-04-18 01:37 | Emergency (ER) | payer OTHER ==
[2024-04-18 02:03] VITALS: TEMP 98.4
[2024-04-18] MEDS ORDERED: Zofran 4 MG/2 ML VIAL ONE (02:18)
[2024-04-18] MEDS ORDERED: Lactated Ringers 1,000 ML IV ONE (02:18)
[2024-04-18] MEDS ORDERED: Pepcid 20 MG VIAL IV ONE (02:18)
[2024-04-18 02:20] LABS: BASOPHIL % 0.3 % (0.1-1.2); Basophil (Absolute #) 0.03 x10^3/uL (0.01-0.08); Eosinophil % 1.5 % (0.7-5.8); Eosinophil (Absolute #) 0.15 x10^3/uL (0.04-0.36); Hematocrit 37.2 % (34.1-44.9); Hemoglobin 12.6 g/dL (11.2-15.7); IMMATURE GRAN # 0.04 x10^3u/L (0.001-0.031); IMMATURE GRAN % 0.4 % (0.001-0.429); Lymphocyte (Absolute #) 1.43 x10^3/uL (1.18-3.74); Lymphocytes % 13.8 % (19.3-51.7); Mean Cell Volume 86.1 fL (79.4-94.8); Mean Corpuscular Hemoglobin 29.2 pg (25.6-32.2); Mean Corpuscular Hgb Concent. 33.9 g/dL (32.2-35.5); Mean Platelet Volume 10.9 fL (9.4-12.3); Monocyte (Absolute #) 1.18 x10^3/uL (0.24-0.86); Monocytes % 11.4 % (4.7-12.5); Neutrophil % 72.6 % (34.0-71.1); Platelet Count 159 x10^3/uL (182-369); Red Blood Count 4.32 x10^6/uL (3.93-5.22); Red Cell Distribution Width 13.5 % (11.7-14.4); White Blood Count 10.3 x10^3/uL (3.98-10.04)
[2024-04-18] MEDS: Pepcid 20 MG VIAL IV ONE (02:23)
[2024-04-18] MEDS: Zofran 4 MG/2 ML VIAL IV ONE (02:23)
[2024-04-18] MEDS: Lactated Ringers 1,000 ML IV ONE (02:23)
[2024-04-18 02:26] LABS: Appearance Clear (Clear); Bacteria None Seen /HPF (None Seen); Bilirubin Negative (Negative); Blood Negative (Negative); Epithelial Cells None Seen /HPF (None Seen); Glucose, Urine Negative (Negative); Hyaline Casts NONE SEEN /LPF (0-2); Ketones Trace (Negative); Leukocyte Esterase Trace (Negative); Nitrite Negative (Negative); Ph 6.5 (4.6-8.0); Protein,Urine Dip 30 (Negative); RBC 0-2 /HPF (0-5); Specific Gravity 1.015 (1.005-1.030); WBC 0-2 /HPF (0-5)
[2024-04-18 02:33] LABS: ALBUMIN 4.1 g/dL (3.5-5.0); ANION GAP 12.1 MEQ/L (5-15); BILIRUBIN,TOTAL 0.5 mg/dL (0.2-1.3); Calcium 8.8 mg/dL (8.4-10.2); Creatinine 1 0.6 mg/dL (0.52-1.04); EST GLOMERULAR FILTRATION RATE 111.3 ML/MIN; Potassium 3.3 mmol/L (3.5-5.1); Total Protein 7.5 g/dL (6.3-8.2)
[2024-04-18] MEDS ORDERED: SUBLIMAZE 100 MCG/2 ML ONE (02:40)
[2024-04-18] MEDS: SUBLIMAZE 100 MCG/2 ML IV ONE (02:42)
--- NOTE | 2024-04-18 02:42 | ERPHSYRPT ---
- History of Present Illness Time Seen by Provider: 04/18/24 02:36 Source: patient Exam Limitations: no limitations Patient Subjective Stated Complaint: pt states she got a flu shot on sunday and had beenm sick since sunday with vomiting, cough, [id number] Triage Nursing Assessment: pt alert and oriented, answers questions approp. pt ambualtes into room with steady gait noted. respirations nonlabored. lungs sounds cta bilat, occasional moist cough noted, pt states at home has been coughing up yellow mucous. abd soft and nontender to light palpation. bowel sounds present x4 Physician History: pt states she got a flu shot on Sunday and had been sick since Sunday with vomiting, cough, headache, pt states at home has been coughing up yellow mucous. Timing/Duration: day(s) (3 days) Severity: moderate Associated Symptoms: nausea, vomiting, cough, malaise Allergies/Adverse Reactions: Penicillins Allergy (Mild, Verified 04/18/24 02:38) Nausea and Vomiting promethazine HCl [From Phenergan] Allergy (Mild, Verified 04/18/24 02:38) tremors prednisolone Allergy (Unknown, Verified 04/18/24 02:38) clindamycin Adverse Reaction (Intermediate, Verified 04/18/24 02:38) Hives fluoxetine HCl [From Prozac] Adverse Reaction (Intermediate, Verified 04/18/24 02:38) confusion , "jumped out of a moving truck" sulfamethoxazole [From Bactrim] Adverse Reaction (Intermediate, Verified 04/18/24 02:38) Swelling aspirin Adverse Reaction (Mild, Verified 04/18/24 02:38) Nausea and Vomiting codeine [Codeine] Adverse Reaction (Mild, Verified 04/18/24 02:38) Itching steroid from breathing treatment Adverse Reaction (Mild, Uncoded 04/18/24 02:38) Blisters oral steroid Home Medications: Levothyroxine Sodium 100 Mcg [Synthroid 100 Mcg] 88 mcg PO QAM 09/27/14 [History] Simvastatin [Zocor] 20 mg PO HS 09/27/14 [History] Clopidogrel Bisulfate [PLAVIX Tablet] 75 mg PO DAILY 04/05/15 [History] Diazepam 5 mg [Valium 5 MG] 10 mg PO TIDPRN PRN 02/14/16 [History] Albuterol Sulfate [Ventolin Hfa] 2 puff IH QID 12/21/16 [History] Loratadine 10 mg [Claritin 10 mg] 10 mg PO DAILY 07/30/17 [History] Magnesium Oxide 400 mg PO BID 09/10/17 [History] Ergocalciferol (Vitamin D2) [Vitamin D2] 50,000 units PO WEEKLY 01/21/19 [History] Propranolol HCl [Propranolol HCl ER] 80 mg PO HS 01/21/19 [History] Hydroxyzine HCl 25 mg [Atarax 25 mg] 25 mg PO QID PRN 04/22/20 [History] dilTIAZem HCL [Cartia Xt] 180 mg PO HS 04/22/20 [History] Diphenhydramine HCl 25 mg [Benadryl 25 mg Capsule] 25 mg PO Q8H PRN 11/30/20 [History] Montelukast Sodium 10 mg [Singulair 10 MG] 10 mg PO HS 05/19/21 [History] Bumetanide 1 mg [Bumex 1 mg] 1 mg PO UD 02/27/22 [History] Dulaglutide [Trulicity] 0.75 mg SQ WEEKLY 02/27/22 [History] Fluticasone Propionate cc [Flovent 110 Mcg COMMON CANISTER] 2 puff IH BID 02/27/22 [History] Hx Tetanus, Diphtheria Vaccination/Date Given: Yes Hx Influenza Vaccination/Date Given: Yes (apr, 2024) Hx Pneumococcal Vaccination/Date Given: Yes (2020) Immunizations Up to Date: Yes Travel Risk - International Travel Have you traveled outside of the country in past 3 weeks: No - Emerging Infectious Disease Are you exhibiting symptoms associated with any current EIDs: Yes Symptoms: Cough: New Onset, Headaches/Body Aches/, Vomitting - Review of Systems Constitutional: Malaise, No Fever, No Chills Eyes: No Symptoms Ears, Nose, & Throat: No Symptoms Respiratory: Cough, No Dyspnea Cardiac: No Chest Pain, No Edema, No Syncope Abdominal/Gastrointestinal: Nausea, Vomiting, No Abdominal Pain, No Diarrhea Genitourinary Symptoms: No Dysuria Musculoskeletal: No Back Pain, No Neck Pain Skin: No Rash Neurological: No Dizziness, No Focal Weakness, No Sensory Changes Psychological: No Symptoms Endocrine: No Symptoms All Other Systems: Reviewed and Negative - Past Medical History Pertinent Past Medical History: Yes Neurological History: Peripheral Neuropathy, Seizures, Stroke ENT History: No Pertinent History Cardiac History: High Cholesterol, Hypertension, Other Respiratory History: COPD Endocrine Medical History: Diabetes Type II, Hypothyroidism Musculoskeletal History: Arthritis GI Medical History: GERD, Hernia, Ulcer History: No Pertinent History Psycho-Social History: Anxiety, Bipolar, Depression, Panic Disorder Female Reproductive Disorders: Endometriosis Other Medical History: CVA 2018. Mitral valve prolapse with regurgitation - Past Surgical History Past Surgical History: Yes Neuro Surgical History: No Pertinent History Cardiac: Cardiac Catheterization Respiratory: No Pertinent History Gastrointestinal: Appendectomy, Cholecystectomy, Hernia Repair Genitourinary: No Pertinent History Musculoskeletal: Joint Replacement, Orthopedic Surgery Female Surgical History: Hysterectomy, Dilation & Curettage Other Surgical History: torn miniscus and implant-RT KNEE" partial scope replacement", oral surgery, melanoma removed for face three times, port placement twice with one removal. Significant Family History: no pertinent family hx, heart disease, diabetes, hypertension - Female History Hx Last Menstrual Period: hyster Hx Now: No - Social History Smoking Status: Former smoker How long have you smoked: 12 years Exposure to second hand smoke: Yes Alcohol Use: None Drug Use: none Patient Lives Alone: No - Social Determinants of Health Will the patient participate in the screening: Declined to provide - Nursing Vital Signs Nursing Vital Signs: Initial Vital Signs Temperature 98.4 F 04/18/24 01:50 Respiratory Rate 18 04/18/24 01:50 Blood Pressure 127/81 04/18/24 01:50 O2 Sat by Pulse Oximetry 95 04/18/24 01:50 Pain Scale Pain Intensity 9 - Physical Exam General Appearance: no apparent distress, alert Eye Exam: PERRL/EOMI, eyes nml inspection Ears, Nose, Throat Exam: normal ENT inspection, TMs normal, pharynx normal, moist mucous membranes Neck Exam: normal inspection, non-tender, supple, full range of motion Respiratory Exam: normal breath sounds, No respiratory distress Cardiovascular Exam: regular rate/rhythm, normal heart sounds, normal peripheral pulses Gastrointestinal/Abdomen Exam: soft, normal bowel sounds, No tenderness, No mass Back Exam: normal inspection, normal range of motion, No CVA tenderness, No vertebral tenderness Extremity Exam: normal inspection, normal range of motion, pelvis stable Neurologic Exam: alert, oriented x 3, cooperative, normal mood/affect, nml cerebellar function, nml station & gait, sensation nml, No motor deficits Skin Exam: normal color, warm, dry, No rash Lymphatic Exam: No adenopathy SpO2: 95 - Course Nursing assessment & vital signs reviewed: Yes - Radiology Exams Chest X-ray Interpretation: Interpreted by me, Reviewed by me, No Pneumonia, No Pneumothorax Ordered Tests: Active Orders 24 hr Category Date Time Status CHEST 1 VIEW (PORTABLE) Stat Exams 04/18/24 02:00 Taken AMYLASE Stat Lab 04/18/24 02:18 Completed CBC W DIFF Stat Lab 04/18/24 02:18 Completed CMP Stat Lab 04/18/24 02:18 Completed CULTURE,URINE Stat Lab 04/18/24 02:02 Received LIPASE Stat Lab 04/18/24 02:18 Completed UA W/RFX UR CULTURE Stat Lab 04/18/24 02:02 Completed Medication Summary Discontinued Medications Generic Name Dose Route Start Last Admin Trade Name Freq PRN Reason Stop Dose Admin Famotidine 20 mg 04/18/24 01:42 04/18/24 02:23 Famotidine 20 Mg/1 Vial IV 04/18/24 01:43 20 mg STAT ONE Administration Famotidine Confirm 04/18/24 02:18 Famotidine 20 Mg/1 Vial Administered 04/18/24 02:19 Dose 20 mg IV .STK-MED ONE Fentanyl Citrate 50 mcg 04/18/24 02:33 04/18/24 02:42 Fentanyl Citrate 100 Mcg/2 Ml* Vial IV 04/18/24 02:34 50 mcg STAT ONE Administration Fentanyl Citrate Confirm 04/18/24 02:40 Fentanyl Citrate 100 Mcg/2 Ml* Vial Administered 04/18/24 02:41 Dose 100 mcg .ROUTE .STK-MED ONE Guaifenesin/Dextromethorphan 10 ml 04/18/24 02:33 Guaifenesin/D-Methorphan Hb 118 Ml Syrup PO 04/18/24 02:34 STAT ONE Lactated Ringer's 1,000 mls @ 999 mls/hr 04/18/24 01:42 04/18/24 02:23 Lactated Ringers IV 04/18/24 02:42 999 mls/hr .Q1H1M ONE Administration Lactated Ringer's Confirm 04/18/24 02:18 Lactated Ringers Administered 04/18/24 02:19 Dose 1,000 mls @ ud IV .STK-MED ONE Ondansetron HCl 4 mg 04/18/24 01:42 04/18/24 02:23 Ondansetron Hcl 4 Mg/2 Ml Vial IV 04/18/24 01:43 4 mg STAT ONE Administration Ondansetron HCl Confirm 04/18/24 02:18 Ondansetron Hcl 4 Mg/2 Ml Vial Administered 04/18/24 02:19 Dose 4 mg .ROUTE .STK-MED ONE Lab/Rad Data: Laboratory Result Diagrams 04/18/24 02:18 04/18/24 02:18 Laboratory Results 04/18/24 04/18/24 04/18/24 Range/Units 02:18 02:18 02:02 WBC 10.3 H (3.98-10.04) x10^3/uL RBC 4.32 (3.93-5.22) x10^6/uL Hgb 12.6 (11.2-15.7) g/dL Hct 37.2 (34.1-44.9) % MCV 86.1 (79.4-94.8) fL MCH 29.2 (25.6-32.2) pg MCHC 33.9 (32.2-35.5) g/dL RDW 13.5 (11.7-14.4) % Plt Count 159 L (182-369) x10^3/uL MPV 10.9 (9.4-12.3) fL Gran % 72.6 H (34.0-71.1) % Immature Gran % (Auto) 0.4 (0.001-0.429) % Nucleat RBC Rel Count 0.0 (0.00-0.2) % Eos # (Auto) 0.15 (0.04-0.36) x10^3/uL Immature Gran # (Auto) 0.04 H (0.001-0.031) x10^3u/L Absolute Lymphs (auto) 1.43 (1.18-3.74) x10^3/uL Absolute Monos (auto) 1.18 H (0.24-0.86) x10^3/uL Absolute Nucleated RBC 0.00 (0.00-0.012) x10^3u/L Lymphocytes % 13.8 L (19.3-51.7) % Monocytes % 11.4 (4.7-12.5) % Eosinophils % 1.5 (0.7-5.8) % Basophils % 0.3 (0.1-1.2) % Absolute Granulocytes 7.50 H (1.56-6.13) x10^3/uL Basophils # 0.03 (0.01-0.08) x10^3/uL Sodium 137 (135-145) mmol/L Potassium 3.3 L (3.5-5.1) mmol/L Chloride 103 (98-107) mmol/L Carbon Dioxide 25 (22-30) mmol/L Anion Gap 12.1 (5-15) MEQ/L BUN 10 (7-17) mg/dL Creatinine 0.60 (0.52-1.04) mg/dL Estimated GFR 111.3 ML/MIN Glucose 139 H (74-106) mg/dL Calcium 8.8 (8.4-10.2) mg/dL Total Bilirubin 0.50 (0.2-1.3) mg/dL AST 46 H (14-36) U/L ALT 31 (0-35) U/L Alkaline Phosphatase 102 (38-126) U/L Serum Total Protein 7.5 (6.3-8.2) g/dL Albumin 4.1 (3.5-5.0) g/dL Amylase 53 (30-110) U/L Lipase 40 (23-300) U/L Urine Color Yellow (Yellow) Urine Appearance Clear (Clear) Urine pH 6.5 (4.6-8.0) Ur Specific [place] 1.015 (1.005-1.030) Urine Protein 30 (Negative) Urine Glucose (UA) Negative (Negative) mg/dL Urine Ketones Trace A (Negative) Urine Blood Negative (Negative) Urine Nitrite Negative (Negative) Urine Bilirubin Negative (Negative) Urine Urobilinogen 2.0 A (0.2) mg/dL Ur Leukocyte Esterase Trace A (Negative) U Hyaline Cast (Auto) NONE SEEN (0-2) /LPF Urine Microscopic RBC 0-2 (0-5) /HPF Urine Microscopic WBC 0-2 (0-5) /HPF Ur Epithelial Cells None Seen (None Seen) /HPF Urine Bacteria None Seen (None Seen) /HPF Urine Culture Reflexed YES (NO) - Progress Progress: improved, pain not gone completely Counseled pt/family regarding: lab results, diagnosis, need for follow-up, rad results Medical Desision Making - Independent Historian Additional History obtained from: Family - Diagnostic Testing Diagnostic test were ordered, analyzed, and reviewed by me: Yes Radiological Interpretation: Interpreted by me, Reviewed by me - Risk of complications Low Risk: Low risk of morbidity from additional dx testing or treatment - Departure Departure Disposition: Home Clinical Impression: URI with cough and congestion, Post-viral cough syndrome Post-vaccination reaction Qualifiers: Encounter type: initial encounter Qualified Code(s): T88.1XXA - Other complications following immunization, not elsewhere classified, initial encounter Condition: Stable Critical Care Time: No Referrals: IHSAN NICHOLE MD [Primary Care Provider] - Follow up/PCP as directed Additional Instructions: Discharge/Care Plan TASHA STARK was seen on 04/18/24 in the Emergency Room. The patient was counseled regarding Diagnosis,Lab results, Imaging studies, need for follow up and when to return to the Emergency Room. Prescriptions given: Discharge Note I have spoken with the patient and/or caregivers. I have explained the patient's condition, diagnosis and treatment plan based on the information available to me at this time. I have answered the patient's and/or caregiver's questions and addressed any concerns. The patient and/or caregivers have as good understanding of the patient's diagnosis, condition and treatment plan as can be expected at this point. The vital signs have been stable. The patient's condition is stable and appropriate for discharge from the emergency department. The patient will pursue further outpatient evaluation with the primary care physician or other designated or consulting physician as outlined in the discharge instructions. The patient and/or caregivers are agreeable to this plan of care and follow-up instructions have been explained in detail. The patient and/or caregivers have received these instruction. The patient/and or caregivers are aware that any significant change in condition or worsening of symptoms should prompt an immediate return to this or the closest emergency department or call 911. TASHA STARK was seen on 04/18/24 n the Emergency Room. At that time you were treated for an emergent condition, during your visit Laboratory, Radiology and/or other procedures may have been ordered. It is very important that you follow-up with your Primary Care Physician IHSAN NICHOLE within the next 24-48 hours to review your Emergency Room visit and the final results of testing that was ordered. Some test results such as Urine Cultures, Blood Cultures, and other cultures if ordered will not be finalized for 24-48 hours. If you do not have a Primary Care Provider please call the medical records department at [phone] ext [phone] to obtain a copy of your results or you may sign into our patient portal to obtain these results by visiting us @ [email or web address] and completing the following steps: 1. Click on the Patient Portal link 2. Click the Patient Self Enrollment Link to complete the enrollment form and entering your 3. Once the enrollment form is completed you will receive an email with a temporary ID and password at the email address you provided. 4. Next choose a user name and password. Your user name must be at least 4 characters long and your password must be at least 4 characters long. 5. Choose a security question from the list and provide your answer to the question. If you already have signed into the Health Portal you may access your Health Care Information 25/12 by the following steps: 1. Login to our website @ [email or web address] 2. Enter your original user name and password. FAQS The [facility] Portal is an online tool that contains your Lab Results, Radiology Reports, Visit History, Discharge Instructions and Health Summary Lab and Radiology Results will not be available for 72 hours on the portal. The Portal is a secure site, passwords are encryted and URLs are re-written so they cannot be copied and pasted. You and authorized family members are the only ones who can access your Portal. Also there is a timeout feature that protects your information if you leave the Portal page open. If you have technical difficulty please use the Contact Us link on the page this will allow you to submit any questions you have regarding the Portal or you may contact the Medical Record Department at [phone]. Prescriptions: Benzonatate 200 mg PO TID #21 cap Levofloxacin [Levaquin 500 MG Tablet] 500 mg PO QAM #5 tablet
[2024-04-18] MEDS ORDERED: Rocephin 1000 MG INJ IM ONE (02:44)
[2024-04-18] MEDS ORDERED: ROCEPHIN 1 GM / 100 ML NaCl 1 GM/100 ML IVPB IV ONE (02:58)
[2024-04-18] MEDS: Robitussin-Dm Syrup PO ONE (03:01)
[2024-04-18] MEDS: ROCEPHIN 1 GM / 100 ML NaCl 1 GM/100 ML IVPB IV ONE (03:01)
[2024-04-18 03:45] VITALS: BP 115/70; PULSE 81; RESP 16; O2SAT 92
--- NOTE | 2024-04-18 08:25 | XRAY ---
Indication: Cough. Comparison: May 06, 2023 Portable chest remains inflated and clear. Heart not enlarged again with left Port-A-Cath. Bony thorax intact. No new/acute findings.
== END 2024-04-18 03:51 | disposition home or self-care (01) ==
LOC: ED 01:37
DX: J06.9 Acute upper respiratory infection, unspecified (principal); R05.9 Cough, unspecified; R51.9 Headache, unspecified; R11.2 Nausea with vomiting, unspecified; T50.B95A Adverse effect of other viral vaccines, initial encounter; Z79.899 Other long term (current) drug therapy; Z79.01 Long term (current) use of anticoagulants
CPT/HCPCS: 36415; 71045; 80053; 81001; 82150; 83690; 85025; 87086; 96365; 96374; 96375; 99284; J0696; J1642; J2405; J3010; A9270-GY